=== PATIENT | female | born 1995 | race Caucasian/White ===

== ENCOUNTER 2022-12-12 12:40 | Outpatient (OUT) | payer OTHER, SELFPAY | END 2022-12-12 12:41 | disposition home or self-care (01) | LOC: PST 12:46 | PROVIDERS: PCP Family Medicine; Visit Provider Surgery | DX: Z01.818 Encounter for other preprocedural examination (principal); R22.0 Localized swelling, mass and lump, head ==

== ENCOUNTER 2022-12-21 07:51 | Day surgery (SDC) | payer OTHER, SELFPAY ==
[2022-12-12 13:20] VITALS: BP 127/86; PULSE 73; RESP 20; TEMP 36.6; O2SAT 97; BMI 38.3
[2022-12-21 08:02] VITALS: BP 138/102; PULSE 96; RESP 18; TEMP 36.5; O2SAT 98; BMI 39.4
[2022-12-21 08:19] LABS: HCG Qualitative NEGATIVE (NEGATIVE)
[2022-12-21] MEDS: LACTATED RINGER'S SOLUTION 1,000 ML 75 ML IV (08:20)
[2022-12-21] MEDS: LACTATED RINGER'S SOLUTION 1,000 ML 50 ML IV (08:20)
[2022-12-21] MEDS: LIDOCAINE HCL 1%-EPINEPHRINE 1:100,000 10 ML MDV INJ (09:25)
[2022-12-21] MEDS: BACITRACIN OINTMENT 28.4 GM TUBE 1 APPLIC TOPICAL (09:34)
[2022-12-21 09:36] VITALS: BP 113/90; PULSE 69; RESP 16; O2SAT 97
[2022-12-21 09:51] VITALS: BP 133/97; PULSE 84; RESP 16; O2SAT 98
[2022-12-21 10:06] VITALS: BP 127/84; PULSE 84; RESP 16; O2SAT 96
--- NOTE | 2022-12-21 11:25 | PM.GSPRC ---
Date of procedure: 12/21/22 Indications for Procedure: This patient is a [age] year female who was recently seen in the office for a right sided scalp mass. This had been present for several months and had an increase in size and has been causing local discomfort. She elects for excision for definitive diagnosis and treatment. The risks and benefits options and potential complications of the procedure were discussed in detail with her and she agreed to proceed and consent was signed. Pre-op diagnosis: scalp mass Post-op diagnosis: same as pre-op Procedure: excision scalp mass Anesthesia: MAC and local Surgeon: Bryce Patel Procedure Summary: the patient was brought to the procedure room and placed in the supine position. Under MAC the site on the right upper scalp was prepped and draped in sterile fashion. One percent lidocaine was used to anesthetize the skin overlying and surrounding the mass. An incision was made overlying the mass of approximately 1.5 cm. Mass which appeared to be consistent with a pilar cyst was excised in its entirety. The mass was approximately 8 mm in diameter. The site was hemostatic. The incision was closed with a running suture of 3-0 nylon. Antibiotic ointment was applied. The patient tolerated the procedure well and was transferred to the recovery area in stable condition. Estimated blood loss (mL): 2 Specimens: scalp mass Complications: No
== END 2022-12-21 10:06 | disposition home or self-care (01) ==
PROVIDERS: PCP Family Medicine; Visit Provider Surgery
PROC: (CPT 11422; principal; 2022-12-21 08:50)
DX: L72.11 Pilar cyst (principal)
CPT/HCPCS: 11422; 36415; 84703; 88304; J2704

== ENCOUNTER 2023-03-05 21:17 | Outpatient (REF) | payer OTHER, SELFPAY ==
[2023-03-08 14:09] LABS: Age Gdln ACOG Testing Note (.); IGP, rfx Aptima HPV ASCU Note (.)
== END 2023-03-05 21:18 | disposition home or self-care (01) ==
LOC: LAB 21:17
PROVIDERS: PCP Family Medicine; Visit Provider Obstetrics & Gynecology
DX: Z12.4 Encounter for screening for malignant neoplasm of cervix (principal)
CPT/HCPCS: G0145

== ENCOUNTER 2023-06-19 20:12 | Outpatient (REF) | payer OTHER, SELFPAY ==
--- OUTSIDE RECORDS SUMMARY | 2023-06-19 20:20 | XMS_ITS | CCD ---
Author Name Unknown Address [address] [facility] [address] [place] [id number] Organization [facility] Care Team Providers Care Pricing Strategist Name Role Phone MICHAEL HELMS Primary Care Physician Scooter, Michael Camejo Primary Care Provider SCOOTER, DR MICHAEL Camejo Admitting Unavailable NADERER, DR MICHAEL Camejo Attending Unavailable NADERER, DR MICHAEL Camejo Consulting Unavailable NADERER, DR MICHAEL Camejo Primary Care Unavailable EDWARD, SUMMER Attending Unavailable EDWARD, SUMMER Admitting Unavailable ZORAN ., PEDRO BAINS Consulting Unavailgeorge e SCOOTER, DR MICHAEL Camejo Primary Care Unavailable GLENN PACHECO Consulting Unavailable ORVILLE ., DR ALONSO Attending Unavailable ORVILLE ., DR ALONSO Admitting Unavailable ORVILLE ., DR ALONSO Consulting Unavailable NADKENR, DR MICHAEL Camejo Primary Care Unavailable NADERER, DR MICHAEL Camejo Admitting Unavailable NADERER, DR MICHAEL Camejo Attending Unavailable NADERER, DR MICHAEL Camejo Consulting Unavailable NADERER, DR MICHAEL Camejo Primary Care Unavailable NADERER, DR MICHAEL Camejo Admitting Unavailable IESHA TORRE Primary Care Unavailable ZIBREANNA, DR CARMEN Aguilar Consulting Unavailable NADERER, DR MICHAEL Camejo Attending Unavailable NADERER, DR MICHAEL Camejo Consulting Unavailable ORVILLE, CELESTE Attending Unavailable ORVILLE, CELESTE Attending Unavailable Medications Current Medications Medication Drug Class(es) Dates Sig (Normalized) Sig (Original) Aimovig SureClick (1 source) Start: 10-12-19 19 Aimovig SureClick SubCutaneous, qMonth, Refills(s) 0 Start Date: 10/11/18 Status: Ordered amoxicillin 875 mg / clavulanate 125 mg oral tablet (1 source) Penicillin-class Antibacterial Start: 08-09-19 End: 08-23-19 22 take 1 tablet by mouth every twelve hours Augmentin 875 mg oral tablet = 1 tab(s), Oral, q12hr, X 14 day(s), # 28 tab(s), Refills(s) 0, Pharmacy: [facility]/pharmacy #[id number], 168, cm, 08/08/21 14:35:00 EDT, Height/Length Dosing, 108, kg, 08/08/21 14:35:00 EDT, Weight Dosing Start Date: 08/08/21 Stop Date: 08/22/21 Status: Ordered FLUoxetine 10 mg oral tablet (1 source) Serotonin Reuptake Inhibitor Start: 10-12-19 take 10 mg by mouth once daily fluoxetine 10 mg, Oral, Daily, Refills(s) 0 Start Date: 10/11/18 Status: Ordered hydroCHLOROthiazide 12.5 mg oral tablet (1 source) Thiazide Diuretic Start: 10-12-19 take 12.5 mg by mouth once daily hydrochlorothiazide 12.5 mg, Oral, Daily, Refills(s) 0 Start Date: 10/11/18 Status: Ordered Completed/Discontinued Medications Medication Drug Class(es) Dates Sig (Normalized) Sig (Original) citalopram 20 mg oral tablet (1 source) Serotonin Reuptake Inhibitor Start: 3 take 1 tablet by mouth once daily citalopram (CELEXA) 20 mg tablet Take 20 mg by mouth once daily. 0 05/25/2022 Active Comment on above: Take 20 mg by mouth once daily. medroxyPROGESTERone acetate 10 mg oral tablet (2 sources) Progestin Start: 9 medroxyPROGESTERone (PROVERA) 10 mg tablet Take 10 mg by mouth. 0 10/11/2018 Active Comment on above: Take 10 mg by mouth. metFORMIN hydrochloride 500 mg oral tablet (2 sources) Biguanide Start: 9 metFORMIN (GLUCOPHAGE) 500 mg tablet Take 500 mg by mouth. 0 10/11/2018 Active Comment on above: Take 500 mg by mouth . Problems Active Problems Problem Classification Problem Date Documented Da te Episodic/Chronic Adjustment disorders (2 sources) Adjustment disorder; Translations: [Adjustment disorder with mixed anxiety and depressed mood] Chronic Anxiety disorders (1 source) Anxiety 10-11-2018 Chronic Calculus of urinary tract (1 source) Kidney stone 10-11-2018 Episodic E Codes: Natural/environment (2 sources) Dog bite; Translations: [Bitten by dog, initial encounter] Onset: 08-08-2021 Episodic E Codes: Place of occurrence (1 source) Unspecified place in single-family (private) house as the place of occurrence of the external cause; Translations: [Place of occurrence of accident or poisoning, home (environment)] Episodic E Codes: Struck by; against (1 source) Striking against or struck by other objects, initial encounter; Translations: [STRIKING AGNST/STRUCK OTH OBJ INIT] Onset: 06-18-2022 Episodic Headache; including migraine (2 sources) Migraine; Translations: [Migraine, unspecified, not intractable, without status migrainosus] Chronic Headache; including migraine (3 sources) Headache; including migraine; Translations: [HEADACHE UNSPECIFIED] Onset: 06-14-2022 Intracranial injury (1 source) Concussion without loss of consciousness, initial encounter; Translations: [CONCUSSION WITHOUT LOC INITIAL ENC] Onset: 06-18-2022 Episodic Mood disorders (1 source) Depressive disorder 10-11-2018 Chronic Nutritional deficiencies (1 source) Vitamin D deficiency, unspecified; Translations: [VITAMIN D DEFICIENCY UNSPECIFIED] Onset: 2022 Chronic Nutritional deficiencies (1 source) Calcium deficiency 10-11-2018 Episodic Open wounds of extremities (2 sources) Open bite of right middle finger without damage to nail, initial encounter; Translations: [Open bite of other finger without damage to nail, initial encounter] Onset: 08-08-2021 Episodic Other aftercare (1 source) Long-term current use of drug therapy; Translations: [Other adaptive physical education specialist (current) drug therapy] Episodic Other aftercare (1 source) Other adaptive physical education specialist (current) drug therapy; Translations: [OTH OUTSIDE MEDICAL SALES REPRESENTATIVE CURRENT DRUG THERAPY] Onset: 06-18-2022 Episodic Other endocrine disorders (1 source) Polycystic ovary syndrome; Translations: [Polycystic ovarian syndrome] Chronic Other endocrine disorders (1 source) Polycystic ovaries 10-11-2018 Chronic Other injuries and conditions due to external causes (1 source) Other specified injuries of head, initial encounter; Translations: [OTH SPEC INJURIES HEAD INITIAL ENC] Onset: 06-18-2022 Episodic Unclassified (1 source) OPENED IN ERROR Past or Other Problems Problem Classification Problem Date Documented Date Episodic/Chronic Immunizations and screening for infectious disease (1 source) Encounter for screening for human papillomavirus (HPV); Translations: [ENC SCREENING HUMAN PAPILLOMAVIRUS] Onset: 2022 Episodic Other connective tissue disease (4 sources) Pain in right finger(s); Translations: [PAIN IN RIGHT FINGERS] Onset: 08-23-2021 Episodic Other screening for suspected conditions (not mental disorders or infectious disease) (4 sources) Encounter for screening for malignant neoplasm of cervix; Translations: [ENC SCREENING MALIG NEOPLASM CERV] Onset: 01-31-2022 Episodic Other skin disorders (1 source) Hyperkeratosis Onset: 05-31-2014 10-11-2018 Episodic Other skin disorders (1 source) Trichilemmal cyst Onset: 12-31-2014 10-11-2018 Episodic Results Test Name Value Interpretation Reference Range Facility CBC AUTO DIFFon 08-07-2022 BASO # 0.1 103/ul Normal 0.0-0.1 [facility] Comment on above: Performed By: #### C BC ####[facility] [address] [place], [place] [address]Dr. Rasta Gatica Basophils/100 WBC (Bld) 0.4 % Normal 0.2-2.[address] [facility] Comment on above: Performed By: #### C BC ####[facility] [address] [place] [address]DrHany Gatica EO # 0.2 103/ul Normal 0.0-0.[address] [facility] Comment on above: Performed By: #### C BC ####[facility] [address] [place], [place] [address]Dr. Rasta Gatica Eosinophils/100 WBC (Bld) 1.3 % Normal 0.9-7.[address] [facility] Comment on above: Performed By: #### C BC ####[facility] [address] [place], [place] [address]Dr. Rasta Gatica Erythrocyte distribution width (RBC) [Ratio] 12.7 % Normal 11.0-15.[address] [facility] Comment on above: Performed By: #### C BC ####[facility] [address] [place], [place] [address]Dr. Rasta Gatica Hematocrit (Bld) [Volume fraction] 40.3 % Normal 36.0-48.[address] [facility] Comment on above: Performed By: #### C BC ####[facility] [address] [place] [id number]. Rasta Gatica Hemoglobin (Bld) [Mass/Vol] 13.1 g/dL Normal 12.0-16.0 [facility] Comment on above: Performed By: #### C BC ####[facility] [address] [place] [id number]. Rasta Gatica IG # 0.03 10e3/ul Normal 0.00-0.03 [facility] Comment on above: Performed By: #### C BC ####[facility] [address] [place] [id number]. Rasta Gatica IG % 0.3 % Normal 0.0-0.5 [facility] Comment on above: Performed By: #### C BC ####[facility] [address] [place] [address]Dr. Rasta Gatica LYMPH # 2.9 103/ul Normal 1.2-3.[address] [facility] Comment on above: Performed By: #### C BC ####[facility] [address] [place] [id number]. Rasta En Lymphocytes/100 WBC (Bld) 25.5 % Normal 20.5-60.0 [facility] Comment on above: Performed By: #### C BC ####[facility] [address] [place] [id number]. Rasta En MANUAL DIFF REQ NO Normal [facility] Comment on above: Performed By: #### C BC ####[facility] [address] [place] [id number]. Rasta Gatica MCH (RBC) [Entitic mass] 29.1 pg Normal 26.7-34.[address] [facility] Comment on above: Performed By: #### C BC ####[facility] [address] [place] [id number]. Rasta En MCHC (RBC) [Mass/Vol] 32.5 g/dL Normal 29.9-35.[address] [facility] Comment on above: Performed By: #### C BC ####[facility] [address] [place] [id number]. Rasta Gatica MCV (RBC) [Entitic vol] 89.6 fL Normal 81.0-99.0 [facility] Comment on above: Performed By: #### C BC ####[facility] [address] [place] [id number]. Rasta Gatica MONO # 0.8 103/ul Normal 0.3-0.[address] [facility] Comment on above: Performed By: #### C BC ####[facility] [address] [place] [id number]. Rasta Gatica Monocytes/100 WBC (Bld) 7.2 % Normal 1.7-12.[address] [facility] Comment on above: Performed By: #### C BC ####[facility] [address] [place], [place] [id number]. Rasta Gatica NEUT # 7.3 103/ul Critically high 1.4-6.5 [facility] Comment on above: Performed By: #### C BC ####[facility] [address] [place], [place] [id number]. Rasta Gatica Neutrophils/100 WBC (Bld) 65.3 % Normal 43.0-75.[address] [facility] Comment on above: Performed By: #### C BC ####[facility] [address] [place], [place] [id number]. Rasta Gatica Platelet mean volume (Bld) [Entitic vol] 10.7 fL Normal 9.5-13.[address] [facility] Comment on above: Performed By: #### C BC ####[facility] [address] [place] [id number]. Rasta Gatica PLT 279 103/ul Normal 150-[address] [facility] Comment on above: Performed By: #### C BC ####[facility] [address] [place] [id number]. Rasta Gatica RBC 4.50 106/ul Normal 4.20-5.[address] [facility] Comment on above: Performed By: #### C BC ####[facility] [address] [place], [place] [address]YxDr. Rasta Gatica WBC 11.2 103/ul Critically high 4.0-11.0 [facility] Comment on above: Performed By: #### C BC ####[facility] [address] [place], [place] [address]SgDr. Rasta Gatica GLYCOHEMOGLOBIN A1Con 2022 ADA RECOMMENDATION SEE BELOW Normal [facility] Comment on above: Result Comment: ADA RECOMMENDED LIMIT 4.0 - 6.0 ADA THERAPEUTIC TARGET < 7.0 ACTION SUGGESTED > 7.0 Performed By: #### A 1C #### [facility] [address] [address] [address] Rasta Gatica Glucose [Mass/Vol] 103 mg/dL Normal [facility] Comment on above: Performed By: #### A 1C #### [facility] [address] [address] [address] Rasta Gatica HbA1c (Bld) [Mass fraction] 5.2 % Normal 4.5-6.2 [facility] Comment on above: Performed By: #### A 1C #### [facility] [address] [address] [address] Rasta Gatica LIPID PROFILEon 08-07-2022 CHOL-HDL RATIO NORM SEE BELOW Normal [facility] Comment on above: Result Comment: 3.3 - 4.4 LOW RISK 4.4 - 7.1 AVERAGE RISK 7.1 - 11.0 MODERATE RISK >11.0 HIGH RISK Performed By: #### L IPID, BMP, TSH, LIVER #### [facility] [address] [address] [address] Rasta Gatica Cholesterol [Mass/Vol] 234 mg/dL Critically high <=200 [facility] Comment on above: Performed By: #### L IPID, BMP, TSH, LIVER #### [facility] [address] [address] [address] Rasta Gatica Cholesterol in HDL [Mass/Vol] 67 mg/dL Critically high 40-60 [facility] Comment on above: Performed By: #### L IPID, BMP, TSH, LIVER #### [facility] [address] [address] [address] Rasta Gatica Cholesterol in LDL [Mass/Vol] 151.8 mg/dL Normal [facility] Comment on above: Performed By: #### L IPID, BMP, TSH, LIVER #### [facility] [address] [address] [address] Rasta Gatica Cholesterol.total/C holesterol in HDL [Mass ratio] 3.5 {ratio} Normal [facility] Comment on above: Performed By: #### L IPID, BMP, TSH, LIVER #### [facility] [address] [address] [address] Rasta Gatica HDL NORMAL > or = 60 mg/dl - LO W CARDIOVASCULAR RISK <40 mg/dl - HIGH CARDIOVASCULAR RISK Normal [facility] Comment on above: Performed By: #### L IPID, BMP, TSH, LIVER #### [facility] [address] [address] [address] Rasta Gatica LDL CALC NORMAL SEE BELOW Normal [facility] Comment on above: Result Comment: <100 mg/dl OPTIMAL 100 - 129 mg/dl NEAR OR ABOVE OPTIMAL 130 - 159 mg/dl BORDERLINE HIGH 160 - 189 mg/dl HIGH >190 mg/dl VERY HIGH Performed By: #### L IPID, BMP, TSH, LIVER #### [facility] [address] [address] [address] Rasta Gatica Triglyceride [Mass/Vol] 76 mg/dL Normal <=150 [facility] Comment on above: Performed By: #### L IPID, BMP, TSH, LIVER #### [facility] [address] [address] [address] Rasta Gatica VLDL CALC 15.2 mg/dL Normal [facility] Comment on above: Performed By: #### L IPID, BMP, TSH, LIVER #### [facility] [address] [address] [address] Rasta Gatica LIVER PROFILEon 08-07-2022 Albumin [Mass/Vol] 3.8 g/dL Normal 3.4-5.0 [facility] Comment on above: Performed By: #### L IPID, BMP, TSH, LIVER #### [facility] [address] [place] [address] Dr. Rasta Gatica Albumin/Globulin [Mass ratio] 1.0 {ratio} Normal [facility] Comment on above: Performed By: #### L IPID, BMP, TSH, LIVER #### [facility] [address] [place] [address] Dr. Rasta Gatica ALP [Catalytic activity/Vol] 98 U/L Normal 46-116 [facility] Comment on above: Performed By: #### L IPID, BMP, TSH, LIVER #### [facility] [address] [place] [address] Dr. Rasta Gatica ALT [Catalytic activity/Vol] 24 U/L Normal 14-59 [facility] Comment on above: Performed By: #### L IPID, BMP, TSH, LIVER #### [facility] [address] [place] [address] Dr. Rasta Gatica AST [Catalytic activity/Vol] 19 U/L Normal 15-37 [facility] Comment on above: Performed By: #### L IPID, BMP, TSH, LIVER #### [facility] [address] [place] [address] Dr. Rasta Gatica BILI, CONJUGATED 0.1 mg/dL Normal 0.0-0.2 [facility] Comment on above: Performed By: #### L IPID, BMP, TSH, LIVER #### [facility] [address] [place] [address] Dr. Rasta Gatica Bilirubin [Mass/Vol] 0.4 mg/dL Normal 0.2-1.0 [facility] Comment on above: Performed By: #### L IPID, BMP, TSH, LIVER #### [facility] [address] [place] [address] Dr. Rasta Gatica Globulin (S) [Mass/Vol] 3.8 g/dL Normal [facility] Comment on above: Performed By: #### L IPID, BMP, TSH, LIVER #### [facility] [address] [place] [address] Dr. Rasta Gatica Protein [Mass/Vol] 7.6 g/dL Normal 6.4-8.2 [facility] Comment on above: Performed By: #### L IPID, BMP, TSH, LIVER #### [facility] [address] [place] [address] Dr. Rasta Gatica PROF CHEM 8 (BAS METB)on Anion gap [Moles/Vol] 9.6 mmol/L Normal [facility] Comment on above: Performed By: #### L IPID, BMP, TSH, LIVER #### [facility] [address] [place] [address] Dr. Rasta Gatica Calcium [Mass/Vol] 9.8 mg/dL Normal 8.5-10.1 [facility] Comment on above: Performed By: #### L IPID, BMP, TSH, LIVER #### [facility] [address] [place] [address] Dr. Rasta Gatica Chloride [Moles/Vol] 106 mmol/L Normal 98-[address] [facility] Comment on above: Performed By: #### L IPID, BMP, TSH, LIVER #### [facility] [address] [place] [address] Dr. Rasta Gatica CO2 [Moles/Vol] 27.0 mmol/L Normal 21.0-32.0 [facility] Comment on above: Performed By: #### L IPID, BMP, TSH, LIVER #### [facility] [address] [place] [address] Dr. Rasta Gatica Creatinine [Mass/Vol] 0.66 mg/dL Normal 0.55-1.02 [facility] Comment on above: Performed By: #### L IPID, BMP, TSH, LIVER #### [facility] [address] [place] [address] Dr. Rasta Gatica EGFR-AF TURKISH >60 Normal >=60 [facility] Comment on above: Performed By: #### L IPID, BMP, TSH, LIVER #### [facility] [address] [place] [address] Dr. Rasta Gatica EGFR-NON AF TURKISH >60 Normal >=[address] [facility] Comment on above: Performed By: #### L IPID, BMP, TSH, LIVER #### [facility] [address] [place] [address] Dr. Rasta Gatica Glucose [Mass/Vol] 88 mg/dL Normal 74-106 [facility] Comment on above: Performed By: #### L IPID, BMP, TSH, LIVER #### [facility] [address] [place] [address] Dr. Rasta Gatica Potassium [Moles/Vol] 4.6 mmol/L Normal 3.5-5.1 [facility] Comment on above: Performed By: #### L IPID, BMP, TSH, LIVER #### [facility] [address] [place] [address] Dr. Rasta Gatica Sodium [Moles/Vol] 138 mmol/L Normal 136-145 [facility] Comment on above: Performed By: #### L IPID, BMP, TSH, LIVER #### [facility] [address] [place] [address] Dr. Rasta Gatica Urea nitrogen [Mass/Vol] 10.0 mg/dL Normal 7.0-18.0 [facility] Comment on above: Performed By: #### L IPID, BMP, TSH, LIVER #### [facility] [address] [place] [address] Dr. Rasta Gatica Urea nitrogen/Creatinine [Mass ratio] 15.2 mg/mg Normal [facility] Comment on above: Performed By: #### L IPID, BMP, TSH, LIVER #### [facility] [address] [place] [address] Dr. Rasta Gatica TSHon 08-07-2022 TSH 1.521 uIU/mL Normal 0.358-3.740 [facility] Comment on above: Performed By: #### L IPID, BMP, TSH, LIVER #### [facility] [address] [place] [address] HEAD WO CONon 06-14-2022 CT HEAD WO CON EXAMINATION: CT HEAD WO CON, 06/14/2022 7:33 PM EST HISTORY: UNSPECIFIED INJURY OF HEAD, INITIAL ENCOUNTER COMPARISON: None. TECHNIQUE: CT scan of the head was performed without IV contrast. CT dose reduction technique was used, including Automated Exposure Control. FINDINGS: BRAIN PARENCHYMA/CSF SPACES: Ventricles are normal in size for age. There is no hemorrhage, mass effect or midline shift. There are no other significant findings. PARANASAL SINUSES: Clear. SKULL BASE AND CALVARIUM: Normal. EXTRACRANIAL SOFT TISSUES: Normal. IMPRESSION: No acute intracranial findings. Electronically authenticated by: GLENN PACHECO Date: 2022-06-14 20:18 [facility] PAP ACOG PANEL 2: 22 to 30on 02-08-2022 . . Normal [facility] Comment on above: Performed By: #### [id number] #### [facility] [address] [place] [address] Dr. Rasta Gatica Age Gdln ACOG Testing 21-29 [facility] Comment on above: Performed By: #### [id number] #### [facility] [address] [place] [address] Dr. Rasta Gatica DIAGNOSIS: Comment [facility] Comment on above: Result Comment: NEGA TIVE FOR INTRAEPITHELIAL LESION OR MALIGNANCY. Performed By: #### [id number] #### [facility] [address] [place] [address] Dr. Rasta Gatica Methodology: Comment [facility] Comment on above: Result Comment: This liquid based ThinPrep(R) pap test was screened with the use of an image guided system. Performed By: #### [id number] #### [facility] [address] [place] [address] Dr. Rasta Gatica Note: Comment [facility] Comment on above: Result Comment: The Pap smear is a screening test designed to aid in the detection of premalignant and malignant conditions of the uterine cervix. It is not a diagnostic procedure and should not be used as the sole means of detecting cervical cancer. Both false-positive and false-negative reports do occur. . Performed By: #### [id number] #### [facility] [address] [place] [address] Dr. Rasta Gatica Performed by: Comment Normal [facility] Comment on above: Result Comment: Darline Terry, Bridge Expert (ASCP) Performed By: #### [id number] #### [facility] [address] [place] [address] Dr. Rasta Gatica Reflex Criteria: Comment Normal [facility] Comment on above: Result Comment: The HPV DNA reflex criteria were not met with this specimen result therefore, no HPV testing was performed. . Performed By: #### [id number] #### [facility] [address] [place] [address] Dr. Rasta Gatica Specimen adequacy: Comment Normal [facility] Comment on above: Result Comment: Sati sfactory for evaluation. Endocervical and/or squamous metaplastic cells (endocervical component) are present. Performed By: #### [id number] #### [facility] [address] [place] [address] Dr. Rasta Gatica CBC AUTO DIFFon 02-02-2022 BASO # 0.0 103/ul Normal 0.0-0.1 [facility] Comment on above: Performed By: #### C BC ####[facility] [address] [place] [address]DrHany Gatica Basophils/100 WBC (Bld) 0.4 % Normal 0.2-2.0 [facility] Comment on above: Performed By: #### C BC ####[facility] Ak[address]accjdbf[address] [place] [address]DrHany Gatica EO # 0.1 103/ul Normal 0.0-0.7 [facility] Comment on above: Performed By: #### C BC ####[facility] Pdscjvcmxz49[address] [place] [address]DrHany Gatica Eosinophils/100 WBC (Bld) 1.3 % Normal 0.9-7.[address] [facility] Comment on above: Performed By: #### C BC ####[facility] [address]qixbuksnz22[address] [place] [address]DrHany Gatica Erythrocyte distribution width (RBC) [Ratio] 13.2 % Normal 11.0-15.0 [facility] Comment on above: Performed By: #### C BC ####[facility] Npeq[address]al[address] [place] [address]DrHany Rasta Gatica Hematocrit (Bld) [Volume fraction] 40.8 % Normal 36.0-48.0 [facility] Comment on above: Performed By: #### C BC ####[facility] [address]oufapgil[address] [place] [address]DrHany Rasta En Hemoglobin (Bld) [Mass/Vol] 13.2 g/dL Normal 12.0-16.0 [facility] Comment on above: Performed By: #### C BC ####[facility] Q[address]xby[address] [place], [place] [address]DrHany Karrieroopa Gatica IG # 0.03 10e3/ul Normal 0.00-0.03 [facility] Comment on above: Performed By: #### C BC ####[facility] Wuwou[address] [place], [place] [address]DrHany Gatica IG % 0.3 % Normal 0.0-0.5 [facility] Comment on above: Performed By: #### C BC ####[facility] Hjurejiqgq[address] [place], [place] [address]DrHany Rasta En LYMPH # 2.8 103/ul Normal 1.2-3.8 [facility] Comment on above: Performed By: #### C BC ####[facility] Uktuetcdbc[address] [place], [place] [address]DrHany Gatica Lymphocytes/100 WBC (Bld) 29.1 % Normal 20.5-60.[address] [facility] Comment on above: Performed By: #### C BC ####[facility] [address]thsidnby[address] [place] [address]DrHany Gatica MANUAL DIFF REQ NO Normal [facility] Comment on above: Performed By: #### C BC ####[facility] [address]ebjxhfypi[address] [place] [address]DrHany Gatica MCH (RBC) [Entitic mass] 29.1 pg Normal 26.7-34.0 [facility] Comment on above: Performed By: #### C BC ####[facility] [address]vzndlmbqf[address] [place] [id number]. Rasta Gatica MCHC (RBC) [Mass/Vol] 32.4 g/dL Normal 29.9-35.2 [facility] Comment on above: Performed By: #### C BC ####[facility] Xkdxpwthum8[address] [place] [id number]. Rasta Gatica MCV (RBC) [Entitic vol] 90.1 fL Normal 81.0-99.0 [facility] Comment on above: Performed By: #### C BC ####[facility] Ttqiwnqjph[address] [place], [place] [address]Dr. Rasta Gatica MONO # 0.6 103/ul Normal 0.3-0.8 [facility] Comment on above: Performed By: #### C BC ####[facility] Gvchw[address]ueb[address] [place], [place] [address]Dr. Rasta Gatica Monocytes/100 WBC (Bld) 6.6 % Normal 1.7-12.0 [facility] Comment on above: Performed By: #### C BC ####[facility] Dimmbdzuza[address] [place], [place] [address]Dr. Rasta Gatica NEUT # 6.0 103/ul Normal 1.4-6.5 [facility] Comment on above: Performed By: #### C BC ####[facility] Ixdkuozdjr[address] [place], [place] [address]Dr. Rasta Gatica Neutrophils/100 WBC (Bld) 62.3 % Normal 43.0-75.[address] [facility] Comment on above: Performed By: #### C BC ####[facility] [address]yshtc[address] [place], [place] [id number]. Rasta Gatica Platelet mean volume (Bld) [Entitic vol] 11.4 fL Normal 9.5-13.[address] [facility] Comment on above: Performed By: #### C BC ####[facility] Rzzjrswvqk[address] [place], [place] [address]Dr. Rasta Gatica PLT 264 103/ul Normal 150-[address] [facility] Comment on above: Performed By: #### C BC ####[facility] Lnlosecapa[address] [place] [id number]. Rasta Gatica RBC 4.53 106/ul Normal 4.20-5.40 [facility] Comment on above: Performed By: #### C BC ####[facility] Z[address]yfyloya[address] [place], [place] [address]Go. Rasta Gatica WBC 9.7 103/ul Normal 4.0-11.0 [facility] Comment on above: Performed By: #### C BC ####[facility] [address]ypq[address] [place] [id number] Gatica GLYCOHEMOGLOBIN A1Con 2021 ADA RECOMMENDATION SEE BELOW Normal [facility] Comment on above: Result Comment: ADA RECOMMENDED LIMIT 4.0 - 6.0 ADA THERAPEUTIC TARGET < 7.0 ACTION SUGGESTED > 7.0 Performed By: #### A 1C #### [facility] [address] [place] [address] [address] Rasta Gatica Glucose [Mass/Vol] 120 mg/dL Normal [facility] Comment on above: Performed By: #### A 1C #### [facility] [address] [place] [address] [address] Rasta Gatica HbA1c (Bld) [Mass fraction] 5.8 % Normal 4.5-6.2 [facility] Comment on above: Performed By: #### A 1C #### [facility] [address] [address] [address] Rasta Gatica LIPID PROFILEon 02-02-2022 CHOL-HDL RATIO NORM SEE BELOW Normal [facility] Comment on above: Result Comment: 3.3 - 4.4 LOW RISK 4.4 - 7.1 AVERAGE RISK 7.1 - 11.0 MODERATE RISK >11.0 HIGH RISK Performed By: #### L IVER, TSH, BMP, LIPID ####[facility] Buyasqczcv8[address] [place] [id number]. Rasta Gatica Cholesterol [Mass/Vol] 210 mg/dL Critically high <=200 [facility] Comment on above: Performed By: #### L IVER, TSH, BMP, LIPID ####[facility] Zpubnopabt[address] [place], [place] [address]Se. Rasta Gatica Cholesterol in HDL [Mass/Vol] 61 mg/dL Critically high 40-[address] [facility] Comment on above: Performed By: #### L IVER, TSH, BMP, LIPID ####[facility] Ciikfoyasg[address] [place] [id number]. Rasta Gatica Cholesterol in LDL [Mass/Vol] 114.4 mg/dL Normal [facility] Comment on above: Performed By: #### L IVER, TSH, BMP, LIPID ####[facility] Exradjrekn[address] [place] [phone]. Rasta Gatica Cholesterol.total/C holesterol in HDL [Mass ratio] 3.4 {ratio} Normal [facility] Comment on above: Performed By: #### L IVER, TSH, BMP, LIPID ####[facility] [address] [place] [address]Dr. Rasta Gatica HDL NORMAL > or = 60 mg/dl - LO W CARDIOVASCULAR RISK <40 mg/dl - HIGH CARDIOVASCULAR RISK Normal [facility] Comment on above: Performed By: #### L IVER, TSH, BMP, LIPID ####[facility] [address] [place] [address]Dr. Rasta Gatica LDL CALC NORMAL SEE BELOW Normal [facility] Comment on above: Result Comment: <100 mg/dl OPTIMAL 100 - 129 mg/dl NEAR OR ABOVE OPTIMAL 130 - 159 mg/dl BORDERLINE HIGH 160 - 189 mg/dl HIGH >190 mg/dl VERY HIGH Performed By: #### L IVER, TSH, BMP, LIPID ####[facility] [address]zuv[address] [place] [id number]. Rasta Gatica Triglyceride [Mass/Vol] 173 mg/dL Critically high <=[address] [facility] Comment on above: Performed By: #### L IVER, TSH, BMP, LIPID ####[facility] Udmfxqltsx[address] [place] [address]Dr. Rasta Gatica VLDL CALC 34.6 mg/dL Normal [facility] Comment on above: Performed By: #### L IVER, TSH, BMP, LIPID ####[facility] C[address]udcyfbz[address] [place] [address]Dr. Rasta Gatica LIVER PROFILEon 02-02-2022 Albumin [Mass/Vol] 3.5 g/dL Normal 3.4-5.0 [facility] Comment on above: Performed By: #### L IVER, TSH, BMP, LIPID ####[facility] [address]jyyycnil[address] [place] [address]Dr. Karrieroopa Gatica Albumin/Globulin [Mass ratio] 1.1 {ratio} Normal [facility] Comment on above: Performed By: #### L IVER, TSH, BMP, LIPID ####[facility] X[address]sm[address] [place], [place] [address]Dr. Karrieroopa Gatica ALP [Catalytic activity/Vol] 71 U/L Normal 46-116 [facility] Comment on above: Performed By: #### L IVER, TSH, BMP, LIPID ####[facility] Auz[address] [place], [place] [address]Dr. Rasta Gatica ALT [Catalytic activity/Vol] 15 U/L Normal 14-59 [facility] Comment on above: Performed By: #### L IVER, TSH, BMP, LIPID ####[facility] [address]upfp[address]ylx[address] [place], [place] [address]Dr. Rasta Gatica AST [Catalytic activity/Vol] 8 U/L Critically low 15-37 [facility] Comment on above: Performed By: #### L IVER, TSH, BMP, LIPID ####[facility] Eie[address] [place], [place] [address]Dr. Karrieroopa Gatica BILI, CONJUGATED <0.1 Normal 0.0-0.2 [facility] Comment on above: Performed By: #### L IVER, TSH, BMP, LIPID ####[facility] Dglyawqcvq[address] [place], [place] [address]Dr. Rasta Gatica Bilirubin [Mass/Vol] 0.1 mg/dL Critically low 0.2-1.0 [facility] Comment on above: Performed By: #### L IVER, TSH, BMP, LIPID ####[facility] [address]zbdbsslx[address] [place] [address]Dr. Karrieroopa Gatica Globulin (S) [Mass/Vol] 3.3 g/dL Normal [facility] Comment on above: Performed By: #### L IVER, TSH, BMP, LIPID ####[facility] [address]jnqqlb70[address] [place] [address]Dr. Rasta Gatica Protein [Mass/Vol] 6.8 g/dL Normal 6.4-8.2 [facility] Comment on above: Performed By: #### L IVER, TSH, BMP, LIPID ####[facility] [address] [place] [address]Dr. Rasta Gatica PROF CHEM 8 (BAS METB)on Anion gap [Moles/Vol] 10.6 mmol/L Normal [facility] Comment on above: Performed By: #### L IVER, TSH, BMP, LIPID ####[facility] [address]vlamimv[address] [place] [address]Dr. Rasta Gatica Calcium [Mass/Vol] 9.2 mg/dL Normal 8.5-10.1 [facility] Comment on above: Performed By: #### L IVER, TSH, BMP, LIPID ####[facility] [address]vyeibqend[address] [place] [address]Dr. Rasta Gatica Chloride [Moles/Vol] 106 mmol/L Normal 98-[address] [facility] Comment on above: Performed By: #### L IVER, TSH, BMP, LIPID ####[facility] [address]xgantm[address] [place] [address]Dr. Rasta Gatica CO2 [Moles/Vol] 29.3 mmol/L Normal 21.0-32.0 [facility] Comment on above: Performed By: #### L IVER, TSH, BMP, LIPID ####[facility] [address]zhkqgwcz4[address] [place] [address]Dr. Rasta Gatica Creatinine [Mass/Vol] 0.63 mg/dL Normal 0.55-1.[address] [facility] Comment on above: Performed By: #### L IVER, TSH, BMP, LIPID ####[facility] Lmb[address]yylqj[address] [place] [phone]. Rasta Gatica EGFR-AF TURKISH >60 Normal >=60 [facility] Comment on above: Performed By: #### L IVER, TSH, BMP, LIPID ####[facility] Jonzpqsnve[address] [place] [phone]. Rasta Gatica EGFR-NON AF TURKISH >60 Normal >=[address] [facility] Comment on above: Performed By: #### L IVER, TSH, BMP, LIPID ####[facility] Mxfqrcvpnw75[address] [place] [phone]. Rasta Gatica Glucose [Mass/Vol] 82 mg/dL Normal 74-106 [facility] Comment on above: Performed By: #### L IVER, TSH, BMP, LIPID ####[facility] [address]vbiuecg[address] [place] [address]Dr. Rasta Gatica Potassium [Moles/Vol] 3.9 mmol/L Normal 3.5-5.[address] [facility] Comment on above: Performed By: #### L IVER, TSH, BMP, LIPID ####[facility] [address]uxiyso[address] [place] [address]Dr. Rasta Gatica Sodium [Moles/Vol] 142 mmol/L Normal 136-145 [facility] Comment on above: Performed By: #### L IVER, TSH, BMP, LIPID ####[facility] Isfluvrnnq[address] [place] [id number]. Rasta Gatica Urea nitrogen [Mass/Vol] 11.0 mg/dL Normal 7.0-18.[address] [facility] Comment on above: Performed By: #### L IVER, TSH, BMP, LIPID ####[facility] Npmzihkzgy[address] [place] [phone]. Rasta Gatica Urea nitrogen/Creatinine [Mass ratio] 17.5 mg/mg Normal [facility] Comment on above: Performed By: #### L IVER, TSH, BMP, LIPID ####[facility] [address]fwlgufkw[address] [place] [phone]. Rasta Gatica TSHon 02-02-2022 TSH 1.214 uIU/mL Normal 0.358-3.740 [facility] Comment on above: Performed By: #### L IVER, TSH, BMP, LIPID ####[facility] [address]jdp[address] [place], [place] [address]Dr. Rasta Gatica VITAMIN D 25 OHon 02-02-2022 VIT D 25-OH 28.2 ng/mL Normal [facility] Comment on above: Performed By: #### V ITAD #### [facility] [address] [place], [place] [address] Dr. Rasta Gatica VIT D RANGES SEE BELOW Normal [facility] Comment on above: Result Comment: <20 ng/mL Vit D deficient 20 - <30 ng/mL Vit D insufficient 30 - 100 ng/mL Vit D sufficient >100 ng/mL Potential Toxicity Performed By: #### V ITAD #### [facility] [address] [place], [place] [address] Dr. Rasta Gatica MRI Hand w/o Righton 022 MRI Hand w/o Right CLINICAL HISTORY: Closed nondisplaced fracture of the middle phalanx of the right index finger. Recent dog bite to middle finger. Finger swelling. COMPARISON: Radiograph 09/06/2021 and 08/30/2021 TECHNIQUE: Multiplanar multisequence MRI of the knee and was performed without contrast FINDINGS: Question minimal edema within the distal diaphysis of the third proximal phalanx. No definitive fracture identified on this examination. The remaining visualized bones appear within normal limits. Mild soft tissue edema of the third digit. Flexor and extensor tendons appear intact. IMPRESSION: Question minimal edema within the distal diaphysis of the third proximal phalanx without definitive fracture. Early osteomyelitis cannot be excluded given the provided injury mechanism. Report reported and signed by Nic Duncan on 09/12/2021 1107 Normal [facility] Extrusion Supervisor ED Note-Physicianon 08-12-19 22 ED Note-Physician Basic Information Time Seen: Isi Stoll PA-C 08/08/2021 14:38 Chief Complaint Middle finger lacerations from dog bite about 20 minutes ago. Bleeding controlled with simple dressing History of Present Illness This patient presents emergency department chief complaint of a dog bite to her right middle finger. The patient was at her parents house. When her siblings had their dogs there. The 2 dogs started fighting. She tried to separate them and when the dogs bit her. As far she knows the dogs are up-to-date on their immunizations. The patient is up-to-date on her Tdap. The patient has no known drug allergies. She does not smoke, drink alcohol, or use any street drugs. She is on metformin for PCOS. She also takes medication for migraine headaches. Review of Systems Constitutional: Denies weight loss, fevers, chills, sweats, malaise Eyes: Denies visual changes, eye pain, double vision, scotomas, floaters ENT: Denies runny nose, epistaxis, sinus pain, ear pain, ringing in ears, tooth ache, sore throat, pain with swallowing Cardiovascular: Denies chest pain, shortness of breath, orthopnea, edema, palpitations, loss of consciousness, claudication Respiratory: Denies cough, sputum production, wheezing, hemoptysis, shortness of breath, dyspnea on exertion Gastrointestinal: Denies abdominal pain, unintentional weight loss, difficulty swallowing, indigestion, bloating, cramping, loss of appetite, nausea, vomiting, diarrhea, constipation, hematochezia, melena Genitourinary: Denies any incontinence of urine, dysuria, hematuria, nocturia, polyuria, hesitancy, frequency, urgency, burning Musculoskeletal: Denies joint pain, morning stiffness, joint swelling, decreased range of motion, crepitus Integumentary: Denies any pruritus, rashes, lesions, petechiae. + wound R middle finger Neurologic: Denies any changes in sight, smell, hearing, taste, seizures, headache, paresthesia, numbness, weakness, balance disturbance Psychiatric denies any depression, change in sleep patterns, anxiety, difficulty concentrating, paranoia, anhedonia, lack of energy, niall Hematologic/lymphatic : Denies any purpura, petechiae, excessive bleeding, bruising Physical Exam Vitals & Measurements T: 36.8 ?C(Oral) HR: 94(Peripheral) RR: 18 BP: 137/97 SpO2: 98% HT: 168.0 cm HT: 168 cm WT: 108.0 kg WT: 108 kg BMI: 38.27 Vital Signs reviewed and noted. General: Alert, no acute distress, patient resting comfortably Skin: warm, no pallor noted . Patient has puncture wounds and abrasions to the right middle finger, dorsal aspect. There is a 2 cm abrasion starts on the mid dorsal aspect and extends laterally. At the midpoint of this, it does extend into the subcutaneous tissue for approximately 2 mm. She has full active range of motion. Distal neurovascular is intact. Head: Normocephalic, atraumatic Eye: Normal conjunctiva Cardiac: regular rate and rhythm Respiratory: Clear to auscultation throughout all nixon Musculoskeletal: No deformity, full ROM. Neurological: alert and oriented, normal sensory and motor observed. Psychiatric: Cooperative Medical Decision Making Dog bite right third digit of the hand Assessment/Plan 1. Dog bite of middle finger (S61.258A: Open bite of other finger without damage to nail, initial encounter) Bitten by dog, initial encounter (W54.0XXA: Bitten by dog, initial encounter) Orders: amoxicillin-clavulana te, = 1 tab(s), Oral, q12hr, X 14 day(s), # 28 tab(s), Refills(s) 0, Pharmacy: [facility]/pharmacy #[id number], 168, cm, 08/08/21 14:35:00 EDT, Height/Length Dosing, 108, kg, 08/08/21 14:35:00 EDT, Weight Dosing amoxicillin-clavulana te, 1 tab(s), Tab, Oral, Once, Stop date 08/08/21 14:46:00 EDT, STAT, Start date 08/08/21 14:46:00 EDT bacitracin topical, 2 corey, Ointment, Topical, Once, Stop date 08/08/21 15:09:00 EDT, STAT, Start date 08/08/21 15:09:00 EDT ibuprofen, 600 mg = 1 tab(s), Tab, Oral, Once, Stop date 08/08/21 14:46:00 EDT, STAT, Start date 08/08/21 14:46:00 EDT, 08/08/21 14:46:00 EDT Patient was interviewed and examined. The right hand was soaked in Hibiclens with saline. Patient was given Augmentin 875 mg p.o. Patient was also given ibuprofen 600 mg p.o. The wound was cleansed and inspected. There is no evidence of tendon injury. There is no evidence of a foreign body. Bacitracin, non-Adaptic dressing and bandage were applied. Distal neurovascular remained intact after the wound was wrapped. I discussed the discharge diagnosis, plan of care, reasons for returning including increased redness, increased pain, red streaking up the arm, purulent drainage, fevers, chills, sweats. I stressed the need for very close follow-up with the primary care physician as well as complete compliance with the antibiotic therapy as prescribed and to be taken until she has completed the entire course of therapy. Patient will be discharged home in stable condition. She is to return to the emergency department for any further problems or concerns. Medicat (more content not included)... [facility] Comment on above: Result Comment: Elec tronically Signed By: Isi Stoll PA-C\.br\Date and Time Signed: 08/08/21 18:06 EDT\.br\Electronically Co-Signed By: Sourav Stinson DO\.br\Date and Time Co-Signed: 08/11/21 07:27 EDT Animal Bite Investigationon 08-08-2021 Animal Bite Investigation [id number]# 1.00CD:127 [facility] Coding Summary.on 08-08-2021 Coding Summary. CD:[id number] G h0bWw+PGhlYWQ+EZ7QHQJ jR56tfLNhnT8SC2bBIX7T XPYSBGCRYX8MHR3nwNT3V IrxP5DstaFx GhinrZRlFS60QTt1FBE0j ZxhJDfalO2ygVMqK4d1Hk LaIM32hW06RGheLKPgDpM 3LjZpbjsgbWFy D4wgPjGmsBNaJfk+PHRhY mxlIHdpZHRoPScxMDAlJy HkwOcbGR4rUo3uDSXnUWW vbGxhcHNlOiBj i6saTODiLOypUD1tmQocT 1FjmYV7WSQid9g1Us27jU I+OYPlLXS9nBeyDEopc31 4UmFxb3btTNH6 cYZhRIlrGYS4B15ge8W7O AZhQQOaAPT5fTJ4uI3naI wrbhkcY3LsfOOgBaG0NHQ 2yRWteD9ekNyn fladoY3aTvb+E16RVC2IL BWLMT7GOvn1S3ReUnprbO I+LT56XXVrMT02wSGhwXJ ks9nklIu8TrHr FWOcKRR2iDsoBNjjb1IfZ CSrX33exYOfg3A4PROugT dicGTwSsRjwCV3iG4fQLd fsgakl6njvlip Ilawm5ewbp23xW93T13jM TrxYRUuUAL9ENSkGFYrbI bret2vvV6uNq5+FUmue4g dg9opqSa9XmYz XBSpvoYheGvlZWJ4o9OxE c90V0XsnPsff1FkUnq9ua 66sGRhn5Z6yRG0RVkoQPF leC4lTHumWmK0 WGAwUmSdmS91xVBhUZnqQ g4lvAvvjCjjEJ6dPYGwwy psMRPwpF1wSNQdaQPwiIj xJR5aOOKxmxgt k900EyQcSUF3LSLzkKOuM 3ZvcZ9iAwHrEFZqEVQvH1 OvsLPdDEqvK127VRqqHqD 9LASyhnKlK4Kz QCZgzZlrHaP2y7R0Jo0Dc 8PgwzvqZMP2ZIcuPGE2Sm BhCxZeKqP9C3PdHiw0GGQ wiLylRN4mA9Uw TMVbgndkxfnnuRT3PSExF XGefI37wFFlYYzpPk2mb7 I8h228VXOtPEUzjM76Qi6 udDogMTBwdCBU aT5faudlx1tyhknqHoJfG NNoSPu0BBr9AXNndSucGy FhGSR6YyZ5KFY6sHQfmV0 ktOvsrhyvqO7t Oyc+Z32jbX4bJGU2QUP1p iaiKWXugjRvWE37MQ72P0 RyPjwvdGFibGU+PGRpdiB iuJleYU6gBzEk i1mmo5IwLOspT4XyXUUnC EraXcp0VHOpBKX2bTG8mG 6oEQEdVYsih1R9uWC2R3D emiNtkp3va7yb IIMcFAsaI05spEPxo3P8U WKgjRT4NPWbvMiuNeMotZ 93Oyc+URCehUvnw8CdSzs qg8tzt1rgqPf4 HmHgUPFqtaCoiCwkABH7v 5BpGg31B48tZSczDWPlYA NdARRnJKOdtJghpx2zqE6 wIi8+PGNvbCB3 oIB0mR1iUDEjJtH9VRcyY 906DzNzwKGfLkaie7gvo6 vwwZc4NkXmXZPaejKmiEm rSMH8u5PkXo43 R29dAZghLMImKGTxPAUyF DEgqPeiox7haV1vSn2+PC 8of1leey26hR21rPI+PHR jDDR9tFprUTlv SHFzmK0iPDvpLlR2ELKzZ iVpdP69nAOeKZfxJr2meS ribQqjGP3nNTRnxgdyo43 9GgTvt6vnGFMz eMMmNZngYML9S33nj5U2H QRpOZTjJNU1hDU2vE5wsT lnbjogbGVmdDsgdmVydGl wHMvkGXuiR958 IHRvcDsnPlBhdGllbnQgT oDcCWd0A4FbDsi4GTRalV ycXR3ocWLuAAxjMd6gkBw lzEahKN5bPHFy ztfuk768EbGjp5xtAQZyh BJoAXqvUUZ4F88vk5J5GZ KzHMMkPZQ6fSJ6sJ3fmQc nbjogbGVmdDsg jvQbhSzwGLplWPimH667W HRvcDsnPkJpcnRoIERhdG Y6BG13RX87oDGhu3W4yGA 5R1KlMUQmtdrd wuwcmES2NBXkUOHdaU60O n3xvPtlRi6xRRQrQCQ5BO MhvZUjH2YmtU2vDmIxDSC gGGWeC8AehSLr PUqkQ912XMrgWiO7GWVpw xZwJ2RvDJGbmCswTjF9q4 E2Fl6CP1T4HQ37QK77sAN oq7J3jMD3K8At WVFcqwlyssfqwFS3ILLpZ BRcyE04Bp1nbTshFw0nED UaNFZ9EOZpaYZoT3CwoZ9 yOiAjMDAwMDAw C4GzdFNzVHzqI092POlbJ zY3QINvyxDwO7WaOULxlG fzJzX1g7B3Yh7REMm5OX6 2TY69sSNkq7R9 aAJ5D5SlUYGyhwokpvbgo KN2YOEuVVSkbL80Od6ldI tuLn3bHCFlLIG2IXKduND dR5ItmC4fXyNb YUBcCQDhZ6NpjVJpBYfuM 113XTswPoZ2SYUbmaBaH3 GdWZWybLapMlB9x9S2Jp3 QMBErEW43RDV2 tUU8PR24GT50Y8IzSteuv GFibGU+PHRhYmxlIHdpZH RoPScxMDAlJyBzdHlsZT0 aYy9sYYEvUNYq kQdexJVxUnFab6pgFCFwW AeaYU6kkEuxZ7PxaVZ4WP Sqp2i4Sr38F94iT4TmbDM +PLUcrFX1hNR6 iK7zOtPqTeP1GOgiP837P cYfoEJnYqlpy6ohp9glqU k8IqP3YVLnwcUpiRrkCEA 3n5OxEr94W54b IHdpZHRoPSIxNSUiIHZhb Omtdh9alV8wFe1+PGNvbC N3fLK9dJ9oLiHmUxO3HUs dQ038DeRukFNw Vodek2fep5sbhDg7DtOpT UXzzdUbfIgeZYI8h2YcGx 33T7DaeHkcd4UuSxk0oy5 2gSAea7O4hQT4 H0LuXMIwkxpdxESxqQloK Z2xBANfqnasJIFulV6xHS EpO5s2NaBpUcL8EBevF2C rbpC0GHBjiJWe ELxnHPZ3X04cl8D7NHQxW MBiCKS2fIP3rG4crLnenx ogbGVmdDsgdmVydGljYWw jJGxiK839XUXz uSrrTBRxqV0sWJXycWQdo AnyFY6kSJPldbaeCtDWLN YGUJIJRFbWLBUDOM65TH7 0oUHnp3I2oVO8 F7ZxEEIcjwefplgavQW1Z UYvJNKhpT43jEYoNBpzFh 1kw7G9a823SHYqRIHxeV6 7Oy3juSttILJr pYCKaZ3zhobfg0opqbloD eFqLWAhJPr3DBx8UYPifH qfDyGgCOW6WeD0YRB6oOR pxJ4lyWtuslgp uS7jUtw+QYVdAnqgTGx3G jwvdGQ+FNLoFKS5zFqiCD uqNPMxbG1bXHQzC8z8SoF zBsL6GXpsI6Pr MRMyqyckUy53pJ0xGjQkN nH2SPzuY9HjugT1JBLwhT ZaETwbWKP7C66xq1J8HYV aHJNcXEO9eKF1 gU2vqPobqccawTMgvCimd yKteFcjQXjjZWwaE960BC BjyOuyLbS5NJflFSXwNL1 8DV30sBNyl3H1 cHN9Q2SoUBXppgwimjlku XT4CGTbZJZiqP02kJLsIJ wrAv7rw4M6f479GTXwVYL scH21Zd0opGqo SNTqnODHfW1wtkpfb9czl zghIlOyIHGkXNf2IVb9IM OhlXbsDiXwUFI0MpX0RWX 1vRHsiM9faZmg kdnkrY1xAso+RmVtYWxlP G26AO52bLJlr3F5jIC3R5 UhZOUdstckdsngmSH1GFM cEPOwrY18gUNt GRzrYu6oj9K7q734YHWkR MJieV37Nu1epAdhCLNftJ GLgU9iujirv2uikgjdHjW fQOFbNSq0EAy8 ZACknNvdRvQtMYR5QbC8E ON1rTRymG3rbVgtgjsviJ 9wOyc+CW8nqwydjnO8AU4 1DN07M2IhTqzk dGFibGU+PHRhYmxlIHdpZ HRoPScxMDAlJyBzdHlsZT 5kSg2dHSZlQGBrzPqyvTF tGbFzw8toIAGk KMszDN4gqZouF1EjgLL8B FFuy5b0Bi35G91rS0SttE A+NTHbxVL2xJV4nH3bJiS gBrK6ONktM905 DhRonFQsOanww1fad2nsq Jo4SpVrTZEyfnRavVznXA E4n6UxTh51E06vVAzzVLJ oPSIyMCUiIHZh kJtrvx2lxT3yJe7+PGNvb HH8iNN7qZ4nRuSxFdB6OQ vpP279ZnSqrJLvAivbO43 uE6BlsWL+PHRy Jaq1JYKjlMlfJA6hlKYaD UynKp6kCQP3JiXrWkLfFO tmA1NfIBAlwmnzxcgjoZD 3FJPhSMMerM04 Cg4lzPbhUf4nBPVvPBL5V CNxaNOzG0NyrK6vMrRyWE QrNXHgS3IhjYNaRFliT56 5EMdaLwB5KFNx hqHwV6AjXRPwzUdcGqK1u 5V4Zl0YlSdlcTAnNO5zNd RuNVx5V1TkZnx6TFFejDl pNA7rtMLvDAqt Wi6plAsldOleOI8eYYUle bfyl440ItVjr0pkPUDiaT VqAYnfWBQ8G74cj2G9TGA fEFLvHUQ6nXU3 jG4emAbeadfkvJHvsPzeh dSwwKweDAttQEvfV821CQ YmxApmXhCXJjy8D5RbWzf 8KOBhxIboWZ0b jVDpLBosCh0miRthbLzsP Z7uTQCsbkgld066MbFvg4 yuIZJwhFAiONwlWDL4A64 qw6I7XJUkBYOz PSE8aTP9qC3tuZbsxscoz GVmdDsgdmVydGljYWwtYW idN637QBKzzImlXs8IMyg 8P8SrMlg5JKUj rPddRJ0cjIEoFKukLl9za XwdrKlxKA2qYXIhzjhra6 34NfKcp7ggXBXezVJyVSe dCQT2I76cz3I8 CPZrTYBcQGN5wLM0pG2dx GlnbjogbGVmdDsgdmVydG ydTVsuHRkhV174XNDhvRt nPlBheWVyOjwv dGQ+ES96mo09H1CjHvucE ti0UUKeRBL0cWY2fK6lLS NlCEmqh9O8pHX2A0YdyfT pjn8vz1fxGTRo ZTog (more content not included)... [facility] Consent for Treatmenton Consent for Treatment [id number] .[id number] [facility] Discharge Instructionson Discharge Instructions [id number]# 1.00CD:127 [facility] ED Clinical Summaryon 2021 ED Clinical Summary [address] [address] ED Clinical Summary Person Information Name: BROOKLYNN GTZ [facility] Age: 26 Years : 1995 Sex: Female Language: [place] PCP: MICHAEL HELMS MD Marital Status: Phone: [phone] Visit Id: Visit Reason: Dog bite: hand; Finger laceration; dog bite Speciality: Acuity: 4 Enc Type: Emergency Med Service: Emergency Arrival: 08/08/2021 14:29:26 Discharge: 08/08/2021 15:44:06 LOS: 000 01:15 Checkin: 08/08/2021 14:29:26 Checkout: 08/08/2021 15:44:06 Dispo Type: Home (Routine DC) EVENTS: Event Name Event Status Request Date/Time Start Date/Time Complete Date/Time Arrive Complete 08/08/2021 14:29:26 08/08/2021 14:29:26 08/08/2021 14:29:26 Document Home Meds Request 08/08/2021 14:29:26 Triage Complete 08/08/2021 14:29:26 08/08/2021 14:35:18 08/08/2021 14:35:18 Patient Care Request 08/08/2021 14:34:44 Bed Assign Complete 08/08/2021 14:35:54 08/08/2021 14:35:54 08/08/2021 14:35:54 Dr Exam Complete 08/08/2021 14:35:54 08/08/2021 14:38:09 08/08/2021 14:38:09 RN Exam Complete 08/08/2021 14:35:54 08/08/2021 14:45:35 08/08/2021 14:45:35 Registration Complete 08/08/2021 14:38:09 08/08/2021 14:50:04 08/08/2021 14:50:04 Dr Exam Complete 08/08/2021 14:39:05 08/08/2021 14:39:05 08/08/2021 14:39:05 Meds Admin Complete 08/08/2021 14:46:43 08/08/2021 15:30:05 Reg Complete Request 08/08/2021 14:50:04 Reg Bed Request Complete 08/08/2021 14:50:04 08/08/2021 14:50:04 08/08/2021 14:50:04 Meds Admin Complete 08/08/2021 15:09:39 08/08/2021 15:30:06 Discharge Complete 08/08/2021 15:38:37 08/08/2021 15:44:14 08/08/2021 15:44:14 Transfer Complete 08/08/2021 15:44:14 08/08/2021 15:44:14 08/08/2021 15:44:14 ADDRESS: [address] [facility] [id number] PHYS DOC NOTES: MEDICAL INFORMATION: Prescriptions Given: New Medications [id number], [address], [place] [id number], [phone] amoxicillin-clavulana te (Augmentin 875 mg oral tablet) 1 Tablets By Mouth every 12 hours for 14 Days. Refills: 0. Medications to Continue with No Changes Other Medications erenumab (Aimovig SureClick) Subcutaneous once a month. fluoxetine 10 Milligram By Mouth every day. hydrochlorothiazide 12.5 Milligram By Mouth every day. medroxyPROGESTERone (medroxyPROGESTERone 10 mg Tab) 10 Milligram By Mouth every day. 10 days out of each month to regulate cycle. metformin 500 Milligram By Mouth 2 times a day. PATIENT EDUCATION INFORMATION: Instructions: Animal Bite, Adult, Pkeu-em-Mvnl Follow up: With: Address: When: MICHAEL HELMS [address] [place], [place] [id number] Business (1) In 3 days 08/11/2021 DIAGNOSIS: 1:Dog bite of middle finger; Bitten by dog, initial encounter [facility] ED Patient Education Noteon 08-08-2021 ED Patient Education Note Infectious Disease Animal Bite, Adult Animal bite wounds can be mild or serious. It is important to get medical treatment to prevent infection. Ask your doctor if you need treatment to prevent an infection that can spread from animals to humans (rabies). Follow these instructions at home: Wound care ? Follow instructions from your doctor about how to take care of your wound. Make sure you: ? Wash your hands with soap and water before you change your bandage (dressing). If you cannot use soap and water, use hand aviation technician. ? Change your bandage as told by your doctor. ? Leave stitches (sutures), skin glue, or skin tape (adhesive) strips in place. They may need to stay in place for 2 weeks or longer. If tape strips get loose and curl up, you may trim the loose edges. Do not remove tape strips completely unless your doctor says it is okay. ? Check your wound every day for signs of infection. Check for: ? More redness, swelling, or pain. ? More fluid or blood. ? Warmth. ? Pus or a bad smell. Medicines ? Take or apply pepx-iwo-wxxtaxr and prescription medicines only as told by your doctor. ? If you were prescribed an antibiotic, take or apply it as told by your doctor. Do not stop using the antibiotic even if your wound gets better. General instructions ? Keep the injured area raised (elevated) above the level of your heart while you are sitting or lying down. ? If directed, put ice on the injured area. ? Put ice in a plastic bag. ? Place a towel between your skin and the bag. ? Leave the ice on for 20 minutes, 2?3 times per day. ? Keep all follow-up visits as told by your doctor. This is important. Contact a doctor if: ? You have more redness, swelling, or pain around your wound. ? Your wound feels warm to the touch. ? You have a fever or chills. ? You have a general feeling of sickness (malaise). ? You feel sick to your stomach (nauseous). ? You throw up (vomit). ? You have pain that does not get better. Get help right away if: ? You have a red streak going away from your wound. ? You have any of these coming from your wound: ? Non-clear fluid. ? More blood. ? Pus or a bad smell. ? You have trouble moving your injured area. ? You lose feeling (have numbness) or feel tingling anywhere on your body. Summary ? It is important to get the right medical treatment for animal bites. Treatment can help you to not get an infection. Ask your doctor if you need treatment to prevent an infection that can spread from animals to humans (rabies). ? Check your wound every day for signs of infection, such as more redness or swelling instead of less. ? If you have a red streak going away from your wound, get medical help right away. This information is not intended to replace advice given to you by your health care provider. Make sure you discuss any questions you have with your health care provider. Document Released: 03/25/2006 Document Revised: 03/20/2018 Document Reviewed: 10/03/2017 Elsevier Patient Education ? 2019 [employer]. [facility] ED Patient Summaryon 022 ED Patient Summary [place] [id number] Patient Discharge Instructions Person Information Name: BROOKLYNN GTZ Age: 26 Years Arrival Date: 08/08/2021 14:29:26 Discharge Diagnosis: 1:Dog bite of middle finger; Bitten by dog, initial encounter Primary Care Physician: MICHAEL HELMS MD Provider Information Primary Provider: Sourav Stinson DO Advanced Financial Economist:None The exam and treatment you received in the Emergency Department were for an urgent problem and are not intended as complete care. It is important that you follow up with a doctor, nurse practitioner, or physician?s community program assistant for ongoing care. If your symptoms become worse or you do not improve as expected and you are unable to reach your usual health care provider, you should return to the Emergency Department. We are available 24 hours a day. BROOKLYNN GTZ has been given the following list of patient education materials, prescriptions and follow-up instructions: Follow-up Instructions: With: Address: When: MICHAEL HELMS [address], [place] [phone] Business (1) In 3 days 08/11/2021 In the event that this physician does not participate in your insurance network, please consult with your insurance company to find a nearby participating provider. Patient Education Materials: Animal Bite, Adult, Zsfl-nc-Bgox A MESSAGE TO ALL PATIENTS REGARDING OPIOIDS PRESCRIPTION OPIOIDS: WHAT YOU NEED TO KNOW Prescription opioids can be used to help relieve hbbgpnan-ae-alsvsg pain and are often prescribed following a surgery or injury, or for certain health conditions. These medications can be an important part of the treatment but also come with serious risks. It is important to work with your healthcare provider to make sure you are getting the safest, most effective care. WHAT ARE THE RISKS AND SIDE EFFECTS OF OPIOID USE? Prescription opioids carry serious risks of addiction and overdose, especially with prolonged use. An opioid overdose, often marked by slowed breathing, can cause sudden . The use of prescription opioids can have a number of side effects as well, even when taken as directed: ? Tolerance?meaning you might need to take more of the medication for the same pain relief ? Physical dependence?meaning you have symptoms of withdrawal when a medication is stopped ? Increased sensitivity to pain ? Constipation ? Nausea, vomiting, and dry mouth ? Sleepiness and dizziness ? Confusion ? Depression ? Low levels of testosterone that can result in lower sex drive, energy, and strength ? Itching and sweating RISKS ARE GREATER WITH: ? History of drug misuse, substance use disorder, or overdose ? Mental health conditions (such as depression or anxiety) ? Sleep apnea ? Older age (65 years and older) ? Avoid alcohol while taking prescription opioids. Also, unless specifically advised by your health care provider, medications to avoid include: ? Benzodiazepines (such as Xanax or Valium) ? Muscle relaxants (such as Soma or Flexeril) ? Hypnotics (such as Ambien or Lunesta) ? Other prescription opioids KNOW YOUR OPTIONS Talk to your health care provider about ways to manage your pain that don?t involve prescription opioids. Some of these options may actually work better and have fewer risks and side effects. Options may include: ? Pain relievers such as acetaminophen, ibuprofen, and naproxen ? Some medication that are also used for depression or seizures ? Physical therapy and exercise ? Cognitive behavioral therapy, a psychological, goal-directed approach, in which patients learn how to modify physical, behavioral, and emotional triggers of pain and stress. IF YOU ARE PRESCRIBED OPIOIDS FOR PAIN: ? Never take opioids in greater amounts or more often than prescribed. ? Follow up with your primary health care provider. o Work together to create a plan on how to manage your pain. o Talk about ways to help manage your pain that don?t involve prescription opioids. o Talk about any and all concerns and side effects. ? Help prevent misuse and abuse o Never sell or share prescription opioids. o Never use another person?s prescription opioids. ? Store prescription opioids in a secure place and out of reach of others (this may include visitors, children, friends, and family). ? Safely dispose of unused prescription opioids: Find your community drug take-back program or your pharmacy mail-back program, or flush them down the toilet, following guidance from the Food and Drug Administration (www.fda.gov/Drugs/Re sourcesForYou). ? Visit www.cdc.gov/drugoverd ose to learn about the risks of opioids abuse and overdose. ? If you believe you may be struggling with addiction, tell your health healthcare administrative assistant and ask for guidance or call [facility]?S National Helpline at 0-066-440-ZB (more content not included)... [facility] Coding Summary.on 02-24-2021 Coding Summary. [id number] G h0bWw+PGhlYWQ+DC7OPTU fY94caAMqvJ3ZJ4iGCA4J DFBCLJQURQ6WCV9tfVC1Y SwlQ1BbrmHz DyfjqQZuLM10WMx6LZH8p ZgeSMyigO2ifVDnG8v5Qj BoKF13zA59AHoqVEHkLpR 3LjZpbjsgbWFy Z1gyWvQajPSkZsk+PHRhY mxlIHdpZHRoPScxMDAlJy BsaOsjVX5bMa7qTOMgKIY vbGxhcHNlOiBj o8nmLULrMMjeAW9ekHxnA 5MozDT1PTVbk6l2Qm45uJ I+IQCaWXG5wMleNSssu92 6GpMko9xuOQC8 xMPnONmdBFW5Z86lz6M2Q IDpMFJwODQ2cFT2jV1leY fgssjtJ2BcyOBgAuO2FVQ 3gHLwaR7fsWdm exfwaL5hFea+I94ZOD3LV OVEHD0LHuq1E0AdEpkvkL I+DH71VKTeZI26hLLsoLX qo3qurYs3WpMi GXZjDBM8fSxxNMrdl5DfM JDrE97rkKQog0P6MNPfzL cybHTdHnWyzOO4fI9lKCa mdlbgr3nguhqi Slojx6inaw31hM41E25hY ZblEDTmKWL3GGTkNKVktE plsy3qpC1aMl5+VAtek4o er3ikmJx9GkVc UHMxfoOctXjvZBX4r6DpX w68L2MffDsbd2UwQeg2df 52cKTvl2R5zWO4VFbrYVR fkL7vPBgiYnT4 OFCxEkDouO51bSWgFGfvF h8pbCspgPifRT4pYKNscp ybAYHwvP8xAPVciRLgaYm sTK4rNNQobixs e949OcVdTOI9NLGuiSVyI 5AymO2qWvFxMHMtYQMnS5 CjkFLfXVrnD987CCjhQqX 0NKJistPnA1Bq PYEekWcuRpZ1b6T3Eb6Cy 0LwexudHFN2HUuiQEWnKy R3GcAfZwX4Z9YqJuc5OND nsVfbHB4zD5Jk OCGcewrcdjeeyKY7VVXaT BYbvK51pHEuNHzuRk6ba4 F8h005BSKzMBPztV05Cq7 udDogMTBwdCBU rE0nedzww5oylqzhOlEpL XJdIDc5DJa4KTRscOdmKj WkAKN1IwM6GIU7dQLicO5 lgCfhsqeakL7i Oyc+C12qoG0sMMT2CZT2p gifOIBsysNcHD03DK59F9 RyPjwvdGFibGU+PGRpdiB iyCnwNF8eSmUx u5ihs4KqENgyX2JnVGEnI VopEwo3MFVfEXP6eIM3bH 9mLTEpBPnft6I0rWG1W3V ennJxvy5fr1kp HYBcCBuvX33upIKva3O1M PPuyMG9MUFcjHftXvYgqB 93Oyc+UVSvpQuqd0VdVfs gw1ayv6fbaTb9 LfNqYESqxyVfsTguBJK6v 3CjCg86W14hIDqvDKGmPC MuCOBjQBTgnAwftd9xiT0 wIi8+PGNvbCB3 aGE7aN0lGTUcCuM4JIjzY 848IhQztBHaFiakq6vtz0 twfHz7XjDfXUZricZikMc lZMI9f6RwOl55 G20rJJdcKYHvXMUrZFAbF WVlbBijbe0jlH1sKc6+PC 9mr1xkkg84iM26wLR+PHR fCMZ9vPvdNBlk BINwwR1qNIuzMgR7MZClQ iZhxX16zTEyTDgbKa0aaR mqgLbyOO6aEJDobfspl33 5VuPms9dpMKIu aBInYHwfRKV9W82uo7E1U ZPhAMGgLTS2uYD3vX4lrD lnbjogbGVmdDsgdmVydGl vWEmeECxxG125 IHRvcDsnPlBhdGllbnQgT vVeQYb4A1YoJtx4UKVnaS yzWG8opRRjTJpxQm0oyMw ozZpjAW4eEYEy msawg203MeUzm2ghSZCce UGnMGniWOG0I19bh0I7YX MwALIhXSQ0zPU0xR0ioIy nbjogbGVmdDsg fgXefLzvZUmtOHtjY979U HRvcDsnPkJpcnRoIERhdG K0AP02JW97lCCvo5S4dXP 5B0FkUJBrfzyw kohktGW1CLMwOIEfvY23J s4muVqfPj8mGXHkYLE6ER PewCBwA9QnrB4qGkWqWTS bWQPrS9FnuVVw VYhhW665RWevWyU1AMDte jViW7OwRPDfiMweCiX6v9 F3Ff6OX8R1FY16NW33nLV vb9A8nMW9B0Gt QXQddgrbnsxfsXW5XZNwO OYuvC12Gy2ytIjoGs1fFV CpRKR0VLKtrRXwU9UdxQ2 yOiAjMDAwMDAw G0TabXXtFFkhX094PGztZ qF9JJDnhrDsX6RrOBImnT yaWtQ6x1W6Ji7YVMg4RM5 7EN38eUDik4S1 vZX5M1RnIOHwmhflwffdc HK9RWUeUJCvtL61Ke7rhE ihRq7uGPUgGWQ2WGSxyLR pG3KkkK2dWdQt YWBvDIFbV5EstZRlEIlwQ 782BLjeOpR4WFObblMpC4 HtAYNtfMtoCyY8b3A1Mj1 QEWZfMV38WYB4 gJO2ZX74YH75T9ImYweln GFibGU+PHRhYmxlIHdpZH RoPScxMDAlJyBzdHlsZT0 aLm1vICGiOONa dHcgsTJoWcFly5wpDGWeP JhmRG1wrGkkD6NybHA8FH Kwq9i7Mu33H56uF6YtgJZ +XFWdlYK2rXU4 bG5xJrOmIkF8DFtyF558F eOvyCAuLgziz8kou0zlfX r4MaY9XXOvnhMggCczTHS 5q6XuRp41C89j IHdpZHRoPSIxNSUiIHZhb Xfetv2xsE3jFj1+PGNvbC Z6xKG1fJ6qFeGuCsI2KLm qF134YjExuYKe Qciab4unq8hbfAh6ZsTtA EIdfuKqcJgtATH1l8JvKq 47M4CdhRgzl6LyJvt6xc2 0iRRfd2P5wEV7 S3LqSAItsnhekBCuzZsvV K1iWULqazprQYXefG6bHA GuT3z9XwJnOgW5LZkcW7S tziF1LFAntBFh ETqqHQP6Q81at0G2WGYgA PDqCAO7hAS5rU6fsLmkyx ogbGVmdDsgdmVydGljYWw uLQvmN432FIFn oLihRLUalW4hJTIukTJjw BdnZL2bGTZckofkOcWHEC FHPWPCJSxBYGARDZ17OO4 1hDSqu6J0pXF6 P4LvHRCbnfdduzfxjAR5P DStNCOavJ14xRAfKPqsSc 4yf4Y0f140TGBaEIUnwD0 7Ny4xlVbkQKLn vRKDyL8afnjef8agblhxA cAjAVOfTMg3ZAj8AETvmZ mlHfUbWPV8ExH8AFN6wMW ifC5mnExeijip xG8bQvo+AAMyKaawGRj4H jwvdGQ+VVWbQLS4oVowDC ekIWQvcB9iSPDeY7k5BxY rJrJ0TZxxH0Jq BAGtjqvfRd32pN8cIlDqM vK3VDbiC0CcmxA9YLGppH XkKVdgENX5O39wh5A1IMU lSSIfYKS0uWB6 jF2qrSjnxrjbdPTibMccn nQokYuwCYihNDsdV682QN FgoMywKjU5FWuxONVeID9 8OQ44gHAyt7O7 uQV3J9QnSCSulvodojhfi NV7JYVgXXBqbS84tUApAU mmPr3eg1Y1i809FDKaGMR itV87Gk6cdXog SAYgfZHBqE5vuqxfv1llf oxbXzLxDPKwILv2IKg8DT SmhQtuTaHwHPA2FkP6CLV 1bSGroG3lkYqn ignilI4jCrz+RmVtYWxlP T56QM53ySPxu1L3tGB9J3 CvYAOghtmkfavbbZS4ZFD sMZObjC93nARf KRhbQc2xl0G9u543DIEwS SKoyL15Jt2mpWjsSABoxE RIgK5wbapjt3slyfzvBxJ bBPLrIQx7NKj7 HRFibRisYvXkEUW9PfB0S HS6cKJtmN8dfHiqysktmJ 9wOyc+QG9lbxbmbkA6SD9 0XD39J6EnIhvy dGFibGU+PHRhYmxlIHdpZ HRoPScxMDAlJyBzdHlsZT 0zJu3qFPVdIHNlbXfbmNT lTbEta9ccOIMa AAhxRM9ndLbbJ3IszDB4G MGyx0b1Pa54K84nG6BqxP A+HLJakVM9sWM0bM8eEjL fPmU1QSzxQ610 VwXqhZRvDdmsh2ojs1hqy Kd0UpPxLRKonvPrvDnnAE V6o8YtAa45R08qIYtrYAY oPSIyMCUiIHZh xDuyxb2muC8xIh2+PGNvb JT5jJQ7mF0kFbUtMgM4NZ ztX482VfLbhIYtYewqW33 tH8LyyST+PHRy Beh3IBWgwVbiFC0ekYXaL OoxWo2lKOJ8EuEtFoGePW svO0OhJQVdptqfxwxqlJK 6KXWsQZQrzP45 Ge7qzUpqGm4aTNOkPDR3G YWlxFLmY7KcpM4yXtIlJE FzSYYpQ4QrjMHbVQhlS08 7JQgsEfT6FLVn ayCpF9IjWKWfwVihQiQ2l 8R7Gs0CqJmppHRmSG9mSa DoYSf0T0ElXkg8GCMydXi aGO3fgPWvZQjo Tn1noJywyNioPB3kXSGwf xhaq041ZnMnh1qbTCUubX ZqULqrUWO1O78qj5T6YGU aGUUrZJP1pST1 bQ6tyUwbocxfuXYsyFnln gJhfGrmZMwnRKnaN806HN FjyDysHuPNSmz5A5VpUms 7ZNHjgWqxCG2j iNHaBEqoEg6byCtmeDhdB I0yDZFsumpbn725YbKmx7 tpDCBqwWBwGSjnPUY3D14 db1S2IJCiUVYy CAE3eFY7yR3qaRwcjsdbd GVmdDsgdmVydGljYWwtYW tbX531ESUpbMdsIx6IDcf 3L8QuXku5OTBj nByrXU4mtEXmGCgjXg4ce VhcoZkmYU0xFFXvvbxyz9 95OsStp3dbMJLgiRYoBYo cAXR5E45wq5D0 AAVvGBDvSKZ2rKW2yK2to GlnbjogbGVmdDsgdmVydG inRHvoNCikF942GXMrgAz nPlBheWVyOjwv dGQ+FD36re70T9XkYchqY zv8MYAhCTK0bYF2bK4kZX WeULqsm3R9sLF7T1UshcT pji2jh3quZHNi ZTog (more content not included)... [facility] .Manual Abson 02-23-2021 Basophils/Leukocyte s Manual cnt (Bld) [Pure # fraction] 0.0 E9/L Normal 0.0-0.2 [facility] Comment on above: Performed By: #### 2 [id number], [id number], [id number], [id number], 7053699, [id number] ####[facility] [address] [place] [address] Eosinophils/Leukocy kenyon Manual cnt (Bld) [Pure # fraction] 0.0 E9/L Normal 0.0-0.5 [facility] Comment on above: Performed By: #### 2 [id number], [id number], [id number], [id number], 7849321, [id number] ####[facility] [address] [place] [address] Lymphocytes/Leukocy kenyon Manual cnt (Bld) [Pure # fraction] 1.8 E9/L Normal 1.0-4.0 [facility] Comment on above: Performed By: #### 2 [id number], [id number], 16854116, [id number], [id number], 9657791 ####[facility] [address] [place] [address] Monocytes/Leukocyte s Manual cnt (Bld) [Pure # fraction] 0.3 E9/L Normal 0.2-1.0 [facility] Comment on above: Performed By: #### 2 [id number], [id number], 37229718, 18115989, 6595571, [id number] ####[place] [address] [place] [address] Neutrophils/Leukocy kenyon Auto (Bld) [Pure # fraction] 1.7 E9/L Low 2.0-7.5 [facility] Comment on above: Performed By: #### 2 368859, [id number], 74406382, 69917123, 7723986, 9501049 ####[facility] [address] [place] [address] BMPon 02-23-2021 Creatinine [Mass/Vol] 0.7 mg/dL Normal 0.5-1.3 [facility] Comment on above: Performed By: #### 2 927674, 17247675, 63530309, 03089050, 3320207, 7443591 ####[facility] [address] [place] [address] Urea nitrogen [Mass/Vol] 7 mg/dL Normal 5-21 [facility] Comment on above: Performed By: #### 2 889467, 14590472, 37941002, 03374910, 7620867, 5079651 ####[facility] [address] [place] [address] Urea nitrogen/Creatinine [Mass ratio] 10 No Units Normal 10-20 [facility] Comment on above: Performed By: #### 2 587886, 75295768, 07144516, 32873690, 0971213, 6540854 ####[facility] [address] [place] [address] Anion gap [Moles/Vol] 13 mmol/L Normal 6-16 [facility] Comment on above: Performed By: #### 2 007498, 46201564, 25464359, 99156502, 7184024, 8052119 ####[facility] [address] [place] [address] Calcium [Mass/Vol] 9.0 mg/dL Normal 8.9-11.1 [facility] Comment on above: Performed By: #### 2 597899, 82418543, 98220741, 68630664, 6628115, 3904375 ####[facility] [address] [place] [address] Chloride [Moles/Vol] 103 mmol/L Normal 101-111 [facility] Comment on above: Performed By: #### 2 799923, 43068458, 55556340, 92199983, 4113981, 3253616 ####[facility] [address] [place] [address] CO2 [Moles/Vol] 22 mmol/L Normal 21-31 [facility] Comment on above: Performed By: #### 2 943151, 21051124, 24179397, 51121564, 5527742, 5008577 ####[facility] [address] [place] [address] Glucose [Mass/Vol] 129 mg/dL Normal 55-199 [facility] Comment on above: Result Comment: If t his glucose result represents a fasting glucose, interpretation should refer to the following reference range: 55-99 mg/dL Performed By: #### 2 021811, 78079132, 35346781, 53387858, 4864775, 1231036 ####[facility] [address] [place] [address] Potassium [Moles/Vol] 3.3 mmol/L Low 3.5-5.3 [facility] Comment on above: Performed By: #### 2 822329, 17418024, 20329457, 55322201, 5059566, 5876873 ####[facility] [address] [place] [address] Sodium [Moles/Vol] 135 mmol/L Normal 135-145 [facility] Comment on above: Performed By: #### 2 488667, 30495129, 20630589, 42309568, 4641797, 8709609 ####[facility] [address] [place] [address] CBC w/ Auto Diffon Erythrocyte distribution width (RBC) [Ratio] 13.5 % Normal 10.9-14.2 [facility] Comment on above: Performed By: #### 2 566113, 15133130, 63027213, 67417418, 2804512, 7616341 ####[facility] [address] [place] [address] Hematocrit (Bld) [Volume fraction] 37.1 % Normal 34.0-46.0 [facility] Comment on above: Performed By: #### 2 832399, 45503358, 27765915, 18408231, 5662302, 8394157 ####[facility] [address] [place] [address] Hemoglobin (Bld) [Mass/Vol] 12.5 g/dL Normal 12.0-16.0 [facility] Comment on above: Performed By: #### 2 079742, 37678090, 47001246, 91556879, 8339333, 5102444 ####[facility] [address] [place] [address] MCH (RBC) [Entitic mass] 29.4 pg Normal 27.0-34.0 [facility] Comment on above: Performed By: #### 2 106238, 52849060, 89874252, 89408912, 4273832, 5212076 ####[facility] [address] [place] [address] MCHC (RBC) [Mass/Vol] 33.6 g/dL Normal 31.4-36.0 [facility] Comment on above: Performed By: #### 2 851060, 63172464, 33328882, 53437155, 8514731, 1414939 ####[address] [place] [address] MCV (RBC) [Entitic vol] 87.4 fL Normal 80.0-100.0 [facility] Comment on above: Performed By: #### 2 556758, 62646078, 46901136, 60181198, 2155074, 0739188 ####[address] [address] Platelet mean volume (Bld) [Entitic vol] 9.4 fL Normal 6.4-10.8 [facility] Comment on above: Performed By: #### 2 901910, 41379473, 12776493, 67216032, 0163056, 5006317 ####[address] [address] Platelets (Bld) [#/Vol] 208.0 E9/L Normal 150.0-500.0 [facility] Comment on above: Performed By: #### 2 166131, 99004914, 14210487, 93813293, 8333134, 9895062 ####[address] [address] RBC (Bld) [#/Vol] 4.2 E12/L Low 4.3-5.9 [facility] Comment on above: Performed By: #### 2 767403, 61044154, 79523033, 57121640, 2256135, 4269720 ####[address] [place] [address] WBC corrected for nucl RBC Auto (Bld) [#/Vol] 3.8 E9/L Low 4.0-11.0 [facility] Comment on above: Performed By: #### 2 586836, 52800351, 80840011, 40574168, 5692155, 4064892 ####[facility] [address] [place] [address] Consent for Treatmenton 02-06 Consent for Treatment [id number]:127 Normal [facility] Discharge Instructionson Discharge Instructions [id number]:127 Normal [facility] ED Clinical Summaryon 2020 ED Clinical Summary [address] [address] ED Clinical Summary Person Information Name: BROOKLYNN GTZ [facility] Age: 26 Years : 1995 Sex: Female Language: [place] PCP: MICHAEL HELMS MD Marital Status: Phone: [phone] Visit Id: Visit Reason: Shortness of breath; Chest pain; sob, chest pain Speciality: Acuity: 3 Enc Type: Emergency Med Service: Emergency Arrival: 02/23/2021 12:58:05 Discharge: 02/23/2021 15:20:32 LOS: 000 02:22 Checkin: 02/23/2021 12:58:05 Checkout: 02/23/2021 15:20:32 Dispo Type: Home (Routine DC) EVENTS: Event Name Event Status Request Date/Time Start Date/Time Complete Date/Time Arrive Complete 02/23/2021 12:58:05 02/23/2021 12:58:05 02/23/2021 12:58:05 Document Home Meds Request 02/23/2021 12:58:05 Triage Complete 02/23/2021 12:58:05 02/23/2021 13:10:48 02/23/2021 13:10:48 Bed Assign Complete 02/23/2021 13:00:33 02/23/2021 13:00:33 02/23/2021 13:00:33 Dr Exam Complete 02/23/2021 13:00:33 02/23/2021 13:01:19 02/23/2021 13:01:19 RN Exam Complete 02/23/2021 13:00:33 02/23/2021 14:20:18 02/23/2021 14:20:18 Registration Complete 02/23/2021 13:01:19 02/23/2021 13:31:20 02/23/2021 13:31:20 EKG Complete 02/23/2021 13:05:32 02/23/2021 13:10:21 Dr Exam Complete 02/23/2021 13:13:48 02/23/2021 13:13:48 02/23/2021 13:13:48 Meds Admin Request 02/23/2021 13:22:06 X-Ray Complete 02/23/2021 13:22:06 02/23/2021 13:38:06 02/23/2021 13:59:24 Pending Labs Complete 02/23/2021 13:22:06 02/23/2021 14:24:37 Lab Complete 02/23/2021 13:22:06 02/23/2021 14:24:37 Reg Complete Request 02/23/2021 13:31:20 Reg Bed Request Complete 02/23/2021 13:31:20 02/23/2021 13:31:20 02/23/2021 13:31:20 Pending Labs Complete 02/23/2021 13:42:04 02/23/2021 13:42:04 02/23/2021 14:07:12 Lab Complete 02/23/2021 13:42:04 02/23/2021 13:42:04 02/23/2021 14:07:12 Pending Labs Complete 02/23/2021 13:55:06 02/23/2021 13:55:06 02/23/2021 13:55:06 Wet Read Request 02/23/2021 13:59:25 Pending Labs Complete 02/23/2021 14:16:36 02/23/2021 14:16:36 02/23/2021 14:24:37 Lab Complete 02/23/2021 14:16:36 02/23/2021 14:16:36 02/23/2021 14:24:37 Pending Labs Complete 02/23/2021 14:16:37 02/23/2021 14:16:37 02/23/2021 14:24:37 Discharge Complete 02/23/2021 14:45:16 02/23/2021 15:23:48 02/23/2021 15:23:48 Transfer Complete 02/23/2021 15:23:48 02/23/2021 15:23:48 02/23/2021 15:23:48 ADDRESS: [id number] [place] [id number] PHYS DOC NOTES: MEDICAL INFORMATION: Prescriptions Given: Medications to Continue with No Changes Other Medications erenumab (Aimovig SureClick) Subcutaneous once a month. fluoxetine 10 Milligram By Mouth every day. hydrochlorothiazide 12.5 Milligram By Mouth every day. medroxyPROGESTERone (medroxyPROGESTERone 10 mg Tab) 10 Milligram By Mouth every day. 10 days out of each month to regulate cycle. metformin 500 Milligram By Mouth 2 times a day. PATIENT EDUCATION INFORMATION: Instructions: Post-Injection Inflammatory Reaction Follow up: With: Address: When: MICHAEL HELMS [address] [place] [address] [employer] (1) In 3 days 02/26/2021 DIAGNOSIS: 1:Vaccine reaction [facility] ED Note-Physicianon 02-24-20 ED Note-Physician Basic Information Time Seen: Robert Urena PA-C 02/23/2021 13:01 Chief Complaint Had COVID vaccine saturday adn since has had palpitations and chest pain. along with some SOB. History of Present Illness 26-year-old female comes to the ED for evaluation of vaccine reaction. Patient received a Covid booster a few days ago. Since that time she has had generalized malaise myalgias. She is been weak and fatigued. She has had palpitations. She is positive chest pain shortness of breath. No vomiting. No diarrhea. No prior treatments. Review of Systems A 10 point review of systems is negative except as noted above. Medical and Surgical History: Reviewed and noted Social history: Lives at home Tobacco: Denies Physical Exam Vitals & Measurements T: 36.8 ?C (Oral) HR: 86(Peripheral) RR: 18 BP: 139/104 SpO2: 100% HT: 170.18 cm HT: 170.2 cm WT: 110 kg WT: 110.0 kg BMI: 37.98 Nurses notes and vital signs reviewed and patient is not hypoxic. General: The patient appears well, resting comfortably. Skin: Warm, dry. Head: Atraumatic. Neck: No JVD. Eye: Normal conjunctiva. Ears, Nose, Mouth, and Throat: Moist mucous membranes. Cardiovascular: Strong distal pulses. Chest wall: Respiratory: Respirations are nonlabored. Back: Normal range of motion. Musculoskeletal: Normal ROM with no gross deformity. Gastrointestinal: Urological: Neurological: Awake and alert. No focal deficits. Follows commands. Psychiatric: Cooperative. Medical Decision Making Laboratory studies reviewed and noted. EKG shows no ischemic changes. Chest x-ray showed no acute infiltrate. Patient feels improved after IV fluids and Toradol. Vaccine reactions are discussed. She is discharged home PCP follow-up. Patient was encouraged to return to the ED if symptoms worsen or change. Assessment/Plan 1. Vaccine reaction ([id number].Z95A: Adverse effect of other vaccines and biological substances, initial encounter) Orders: ketorolac, 30 mg = 1 mL, Injection, IV Push, Once, Stop date 02/23/21 13:21:00 EST, STAT, Start date 02/23/21 13:21:00 EST, 02/23/21 13:21:00 EST Sodium Chloride 0.9% intravenous solution 1,000 mL, 1,000 mL, IV, Bolus, STAT, Start date 02/23/21 13:21:00 EST, Total volume (mL): 1,000, 110 kg, 2.28, m2 .Manual Abs Basic Metabolic Panel CBC w/ Auto Diff eGFR Extra SST Tube Manual Diff Troponin 0 Hr. XR Chest Single View Medications Administered Given Sodium Chloride 0.9% IV Bibiana 1000 mL 1,000 mL, 1000 mL, IV ketorolac 30 mg/mL Inj 1 mL, 30 mg, IV Push Disposition Plan Patient Discharge Condition Disposition: Discharged home Condition: Improved and stable Counseled: Patient and/or family were counseled to workup, results, treatment plan and follow-up recommendations Discharge Prescription List Prescriptions No active prescription medications Follow-up With When Contact Information MICHAEL HELMS In 3 days 02/26/[address] [address]- Business (1) Additional Instructions: Patient Education Post-Injection Inflammatory Reaction Attestation Patient seen and evaluated by the physician community program assistant. Attending physician was present in the emergency department and supervised care. This report was transcribed using voice recognition software. Every effort was made to ensure accuracy, however, inadvertently computerized auto hauler mistakes may be present. Appropriate healthcare PPE was used in evaluating this patient. The patient was placed in a mask. The healthcare provider was wearing mask, gloves, googles and utilizing proper hand hygiene. All equipment was properly cleansed. Problem List/Past Medical History Ongoing Adjustment disorder with mixed anxiety and depressed mood Anxiety Calcium deficiency Depression Migraine Polycystic ovarian syndrome Historical Hyperkeratosis Kidney stones Pilar cyst Procedure/Surgical History excision of pilar cyst - local (01/27/2015), Lithotripsy. Medications Inpatient Sodium Chloride 0.9% IV Bibiana 1000 mL 1,000 mL, 1000 mL, IV Home Aimovig SureClick, SubCutaneous, qMonth fluoxetine, 10 mg, Oral, Daily hydrochlorothiazide, 12.5 mg, Oral, Daily medroxyPROGESTERone 10 mg Tab, 10 mg, Oral, Daily metformin, 500 mg, Oral, BID Allergies No Known Allergies Social History Alcohol Current, 1-2 times per month, 10/11/2018 Substance Abuse - Denies Substance Abuse, 10/11/2018 Tobacco - Denies Tobacco Use, 03/18/2014 Never (less than 100 in lifetime) Tobacco Use:., 10/11/2018 Never (less than 100 in lifetime) Tobacco Use:. Never Smokeless Tobacco Use:., 10/11/2018 Family History Family history is negative Lab Results WBC: 3.8 E9/L Low (02/23/21 13:30:00) RBC: 4.2 E12/L Low (02/23/21 13:30:00) HGB: 12.5 gm/dL (02/23/21 13:30:00) Hct: 37.1 % (02/23/21 13:30:00) MCV: 87.4 fL (02/23/21 13:30:00) MCH: 29.4 pg (02/23/21 13:30:00) MCHC: 33.6 gm/dL (02/23/21 13:30:00) RDW: 13.5 % (02/23/21 (more content not included)... [facility] Comment on above: Result Comment: Elec tronically Signed By: Robert Urena PA-C\.br\Date and Time Signed: 02/23/21 14:48 EST\.br\Electronically Co-Signed By: Julee Herrera M.D.\.br\Date and Time Co-Signed: 02/23/21 15:04 EST ED Patient Education Noteon 02-23-2021 ED Patient Education Note Dermatology Post-Injection Inflammatory Reaction A post-injection inflammatory reaction is swelling, irritation, and other problems that can develop after a person gets a shot (injection). The reaction can develop at and around the injection site or far away from the injection site. In some cases, it can develop right away and last for a short time. In other cases, it can develop weeks after the injection and last for several hours or days. In most cases, the reaction is not serious and will go away on its own. What are the causes? This condition may be caused by: ? An allergy to the needle or medicine. ? A response by your body's defense system (immune system). ? Damage to the surrounding tissue from the injection. ? Germs that enter the body through the injection site. What are the signs or symptoms? Common symptoms of this condition include: ? Itchiness. ? Redness. ? Warmth. ? Rash. ? Swelling. ? Tenderness. ? Pain. Other symptoms include: ? Drainage. ? Fever or chills. ? Muscle aches. ? Nausea or vomiting. ? Loss of appetite. ? Headache. ? Dizziness. In severe cases, seizures, asthma, or a severe allergic reaction (anaphylaxis) can occur. These cases are rare. How is this diagnosed? This condition may be diagnosed with a physical exam. During the exam, a shoalwater may be drawn around the injection site. The shoalwater helps to show whether redness in the area is spreading. How is this treated? Treatment for this condition depends on what caused the reaction and how severe the reaction is. Treatment may include: ? Putting an ice pack over the injection site. ? Taking a nonsteroidal anti-inflammatory drug (NSAID) to lessen swelling and itching. ? Taking antibiotic medicine. ? Taking mpda-lcc-cciiegk pain medicine. If the reaction affects a joint, you may also need to rest the joint for a while. Follow these instructions at home: Medicines ? If you were prescribed antibiotic medicine, take or apply it as told by your health care provider. Do not stop taking or applying the antibiotic even if you start to feel better. ? Take kriq-zkg-zyuxfrq and prescription medicines only as told by your health care provider. ? Ask your health care provider if the medicine prescribed to you requires you to avoid driving or using heavy machinery. Managing pain and swelling ? If directed, put ice on the affected area: ? Put ice in a plastic bag. ? Place a towel between your skin and the bag. ? Leave the ice on for 20 minutes, 2?3 times a day. General instructions ? If the reaction affects a joint, rest your joint. Ask your health care provider when you can start to use your joint again. ? Keep the injection site clean. ? Keep all follow-up visits as told by your health care provider. This is important. Contact a health care provider if: ? Your symptoms last for several hours. ? You have a fever or chills. ? You have muscle aches. Get help right away if: ? Your symptoms get worse. ? You have trouble breathing. ? You have a rash, raised bumps (hives), or severe itching. ? You have seizures. Summary ? A post-injection inflammatory reaction is swelling, irritation, and other problems that can develop after a person gets a shot (injection). ? It may be caused by an allergy, an immune response, damage to the tissues surrounding the injection, or an infection. ? This condition may be treated by icing the area and by taking medicine. This information is not intended to replace advice given to you by your health care provider. Make sure you discuss any questions you have with your health care provider. Document Released: 12/05/2011 Document Revised: 07/17/2019 Document Reviewed: 03/02/2019 Elsevier Patient Education ? 2019 [employer] [facility] ED Patient Summaryon 021 ED Patient Summary [address] [address] Patient Discharge Instructions Person Information Name: BROOKLYNN GTZ Age: 26 Years Arrival Date: 02/23/2021 12:58:05 Discharge Diagnosis: 1:Vaccine reaction Primary Care Physician: MICHAEL HELMS MD Provider Information Primary Provider: Julee Herrera M.D. Advanced Financial Economist:Robert Urena PA-C The exam and treatment you received in the Emergency Department were for an urgent problem and are not intended as complete care. It is important that you follow up with a doctor, nurse practitioner, or physician?s community program assistant for ongoing care. If your symptoms become worse or you do not improve as expected and you are unable to reach your usual health care provider, you should return to the Emergency Department. We are available 24 hours a day. BROOKLYNN TGZ has been given the following list of patient education materials, prescriptions and follow-up instructions: Follow-up Instructions: With: Address: When: MICHAEL HELMS [address] [place] [address] Business (1) In 3 days 02/26/2021 In the event that this physician does not participate in your insurance network, please consult with your insurance company to find a nearby participating provider. Patient Education Materials: Post-Injection Inflammatory Reaction A MESSAGE TO ALL PATIENTS REGARDING OPIOIDS PRESCRIPTION OPIOIDS: WHAT YOU NEED TO KNOW Prescription opioids can be used to help relieve wpssevpb-fr-vfscyf pain and are often prescribed following a surgery or injury, or for certain health conditions. These medications can be an important part of the treatment but also come with serious risks. It is important to work with your healthcare provider to make sure you are getting the safest, most effective care. WHAT ARE THE RISKS AND SIDE EFFECTS OF OPIOID USE? Prescription opioids carry serious risks of addiction and overdose, especially with prolonged use. An opioid overdose, often marked by slowed breathing, can cause sudden . The use of prescription opioids can have a number of side effects as well, even when taken as directed: ? Tolerance?meaning you might need to take more of the medication for the same pain relief ? Physical dependence?meaning you have symptoms of withdrawal when a medication is stopped ? Increased sensitivity to pain ? Constipation ? Nausea, vomiting, and dry mouth ? Sleepiness and dizziness ? Confusion ? Depression ? Low levels of testosterone that can result in lower sex drive, energy, and strength ? Itching and sweating RISKS ARE GREATER WITH: ? History of drug misuse, substance use disorder, or overdose ? Mental health conditions (such as depression or anxiety) ? Sleep apnea ? Older age (65 years and older) ? Avoid alcohol while taking prescription opioids. Also, unless specifically advised by your health care provider, medications to avoid include: ? Benzodiazepines (such as Xanax or Valium) ? Muscle relaxants (such as Soma or Flexeril) ? Hypnotics (such as Ambien or Lunesta) ? Other prescription opioids KNOW YOUR OPTIONS Talk to your health care provider about ways to manage your pain that don?t involve prescription opioids. Some of these options may actually work better and have fewer risks and side effects. Options may include: ? Pain relievers such as acetaminophen, ibuprofen, and naproxen ? Some medication that are also used for depression or seizures ? Physical therapy and exercise ? Cognitive behavioral therapy, a psychological, goal-directed approach, in which patients learn how to modify physical, behavioral, and emotional triggers of pain and stress. IF YOU ARE PRESCRIBED OPIOIDS FOR PAIN: ? Never take opioids in greater amounts or more often than prescribed. ? Follow up with your primary health care provider. o Work together to create a plan on how to manage your pain. o Talk about ways to help manage your pain that don?t involve prescription opioids. o Talk about any and all concerns and side effects. ? Help prevent misuse and abuse o Never sell or share prescription opioids. o Never use another person?s prescription opioids. ? Store prescription opioids in a secure place and out of reach of others (this may include visitors, children, friends, and family). ? Safely dispose of unused prescription opioids: Find your community drug take-back program or your pharmacy mail-back program, or flush them down the toilet, following guidance from the Food and Drug Administration (www.fda.gov/Drugs/Re sourcesForYou). ? Visit www.cdc.gov/drugoverd ose to learn about the risks of opioids abuse and overdose. ? If you believe you may be struggling with addiction, tell your health healthcare administrative assistant and ask for guidance or call SAMHSA?S National Helpline at 1-376-199-IPFH. (more content not included)... [facility] Manual Diffon 02-23-2021 Band form neutrophils/100 WBC (Bld) 6 % Normal 0-10 [facility] Comment on above: Order Comment: Order Added by Discern Expert. Performed By: #### 2 [id number], [id number], [id number], [id number], [id number], [id number] ####[facility] [address] [place] [place] [address] Basophils/100 WBC (Bld) 0 % Normal 0-2 [facility] Comment on above: Order Comment: Order Added by Discern Expert. Performed By: #### 2 [id number], [id number], [id number], [id number], [id number], [id number] ####[facility] [address] [place] [address] Eosinophils/100 WBC (Bld) 1 % Normal 0-8 [facility] Comment on above: Order Comment: Order Added by Discern Expert. Performed By: #### 2 [id number], [id number], [id number], [id number], [id number], [id number] ####[facility] [address] [place] [address] Lymphocytes/100 WBC (Bld) 44 % Normal 14-50 [facility] Comment on above: Order Comment: Order Added by Discern Expert. Performed By: #### 2 [id number], [id number], [id number], [id number], [id number], [id number] ####[facility] [address] [facility] [place] [address] Monocytes/100 WBC (Bld) 7 % Normal 4-14 [facility] Comment on above: Order Comment: Order Added by Discern Expert. Performed By: #### 2 [id number], [id number], [id number], [id number], [id number], [id number] ####[facility] [address] [place] [address] Morphology Mateusz (Bld) [Interp] Normal [facility] Comment on above: Order Comment: Order Added by Discern Expert. Performed By: #### 2 [id number], [id number], [id number], [id number], [id number], [id number] ####[facility] [address] [place] [address] Segmented neutrophils/100 WBC (Bld) 39 % Normal 36-75 [facility] Comment on above: Order Comment: Order Added by Discern Expert. Performed By: #### 2 [id number], [id number], [id number], [id number], 7298238, 6109574 ####[facility] [address] [place] [address] Variant lymphocytes LM Ql (Bld) 3 % Invalid Interpretation Code [facility] Comment on above: Order Comment: Order Added by Discern Expert. Performed By: #### 2 146593, [id number], [id number], [id number], [id number], [id number] ####[facility] [address] [place] [address] Prescriptions/Work Noteson 1 04-25-2020 Prescriptions/Work Notes [id number] .[id number]:127 [facility] Troponin 0 Hr.on 02-23-2021 Troponin I.cardiac [Mass/Vol] 2.30 pg/mL Low 10.10-27.10 [facility] Comment on above: Result Comment: The 95% CI (Confidence Interval) PPV (Positive Predictive Value) for myocardial infarction in females is 38 pg/mL, in males 51 pg/mL. The results should be used in conjunction with clinical conditions of myocardial infarction. (Access High Sensitivity Troponin I Instructions For Use, Emre [place], November 2017) Performed By: #### 2 [id number], [id number], [id number], [id number], [id number], [id number] ####[facility] [address] [place] [address] XR Chest Single Viewon 02-23 XR Chest Single View Exam Date/Time: 02/23/2021 13:59 EST Reason for Exam: Cough Report IMPRESSION: THERE ARE NO ACUTE CARDIOPULMONARY CHANGES CLINICAL HISTORY: Cough COMPARISON: NONE. FINDINGS: The cardiomediastinal silhouette is unremarkable. The lungs are free of infiltrates effusions or consolidations. The bones and soft tissues are within normal limits. FINAL REPORT Dictated: 02/23/2021 2:40 pm Mckeon MD, Ramírez V. Signed (Electronic Signature): 02/23/2021 2:40 pm Signed by: Ramírez Mckeon MD, V. Transcribed by: KEMAR Technologist: DYAN [facility] eGFRon 02-23-2021 GFR/1.73 sq M.predicted among blacks MDRD (S/P/Bld) [Vol rate/Area] mL/min/{1.73_m2} Normal >=59 [facility] Comment on above: Order Comment: Order added by Discern Expert. Result Comment: eGFR is race adjusted. AA=. Performed By: #### 2 [id number], [id number], [id number], [id number], 7435194, [id number] ####[facility] [address] [place] [address] GFR/1.73 sq M.predicted among non-blacks MDRD (S/P/Bld) [Vol rate/Area] mL/min/{1.73_m2} Normal >=59 [facility] Comment on above: Order Comment: Order added by Discern Expert. Result Comment: Nurse Practical jorden kidney disease could be indicated at eGFR's of less than 60 mL/min/1.73m2. Kidney failure is indicated at less than 15 mL/min/1.73m2. Performed By: #### 2 [id number], [id number], [id number], [id number], [id number], [id number] ####[facility] [address] [place] [address] Ambulatory Clinical Summaryo 10-14-2020 Ambulatory Clinical Summary {[id number] [facility] Vital Signs Date Time Vital Sign Value Performing Clinician Facility 06-22-2022 09:21-0400 Body height 167.6 cm ANTELMO Bills MD Work Phone: [facility] 06-22-2022 09:21-0400 Body weight 112.49 kg ANTELMO Bills MD Work Phone: [facility] 08-08-2021 14:31-0400 Body temperature 98.24 [degF] Sourav Stinson [facility] 08-08-2021 14:31-0400 Diastolic blood pressure 97 mm[Hg] Sourav Stinson [facility] 08-08-2021 14:31-0400 Heart rate 94 /min Sourav Stinson [facility] 08-08-2021 14:31-0400 Respiratory rate 18 /min Sourav Stinson [facility] 08-08-2021 14:31-0400 SaO2% (BldA) [Mass fraction] 98 % Sourav Stinson [facility] 08-08-2021 14:31-0400 Systolic blood pressure 137 mm[Hg] Sourav Stinson [facility] Encounters Encounter Date Encounter Type Care Provider Facility Start: 06-13-2023 End: 06-13-2023 ambulatory CELESTE JACINTO Not Available Start: 03-05-2023 End: 03-05-2023 ambulatory CELESTE JACINTO Not Available Start: 08-14-2022 Encounter for genera l adult medical examination without abnormal findings DR MICHAEL HELMS [facility] Start: 08-07-2022 End: 08-08-[address] MICHAEL HELMS Facility:[facility] Start: 08-07-2022 End: 08-08-2022 Encounter for general adult medical examination without abnormal findings DR MICHAEL HELMS Facility:[facility] Start: 06-22-2022 End: 06-22-2022 Patient encounter procedure J Yakov Bills MD Work Phone: Plastic Surgery Comment on above: OPENED IN ERROR (Jeannie danielle Dx) Start: 06-14-2022 End: 06-14-2022 ambulatory SUMMER ELON Facility:[facility] Start: 02-02-2022 End: 02-03-[address] MICHAEL HELMS Facility:[facility] Start: 01-31-2022 End: 01-31-[address] CELESTE JACINTO . Facility:[facility] Start: 08-23-2021 End: 08-24-[address] MICHAEL HELMS Facility:[facility] Start: 08-08-2021 End: 08-08-2021 Emergency department patient visit Sourav Stinson [facility] Procedures Date Procedure Procedure Detail Performing Clinician Start: 01-27-2015 excision of pilar [address] - local Sourav Stinson Lithotripsy Sourav Stinson Plan of Treatment Date Care Activity Detail Author Start: 04-08-2022 DEPRESSION ASSESSMENT DEPRESSION ASS ESSMENT [facility] Start: 12-07-2021 Influenza vaccination INFLUENZA (#1) [facility] Start: 04-18-2021 COVID-19 VACCINE (2 - Booster for Vinny series) COVID-19 VACCINE (2 - Booster for Vinny series) [facility] Start: 02-03-2017 PAP TESTING PAP TESTING [facility] Start: 02-03-2015 Urine microalbumin profile DTAP,TDAP ,TD (1 - Tdap) [facility] Start: 02-03-2014 HEPATITIS C SCREENING HEPATITIS C SC REENING [facility] Start: 02-03-2014 HIV SCREENING [facility]CREENING [facility] [facility] Start: 02-03-2010 PEDS TO ADULT TRANSI TION ANNUAL ASSESSMENT PEDS TO ADULT TRANSITION ANNUAL ASSESSMENT [facility] Start: 2008 PEDS TO ADULT TRANSI TION INITIAL DISCUSSION PEDS TO ADULT TRANSITION INITIAL DISCUSSION [facility] Start: 02-03-2007 HPV VACCINE (1 - 2-d ose series) HPV VACCINE (1 - 2-dose series) [facility] Start: 1996 HEPATITIS B (1 of 3 - 3-dose series) HEPATITIS B (1 of 3 - 3-dose series) [facility] Payers Date Payer Category Payer Unknown [id number] 2.16.84 [id number] 1996 Unknown [id number] 2.16.84 [id number] 1996 Unknown [id number] 2.16.84 [id number] 1996 Unknown [id number] 2.16.84 [id number] 1996 Unknown [id number] 2.16.84 [id number] 1996 Unknown [id number] 2.16.84 [id number] 1996 Unknown [id number] 1959 Private Health Insurance [id number] 1959 Unknown [id number] Social History Date Type Detail Facility Start: 10-11-2018 End: 06-22-2022 Tobacco smoking status Never smoked tobacco (finding) [facility] Sex Assigned At Female [facility] Start: 06-22-2022 Tobacco use and exposure Smokeless tobacco non-user [facility] Start: 1996 Sex Assigned At Not on file [facility] History of Present illness Narrative 06-22-2022 Raya Brooks RN - 06/22/2022 9:18 AM EDT Note Date & Type Note Facility 06-22-2022 History of Presen t illness Narrative OPENED IN ERROR documented in this encounter [facility] Clinical Note 08-23-2021 Note Date & Type Note Facility 08-23-2021 Note PROCEDURE: XR FINGER MIN 2 VIEWS HISTORY: Pain in finger of right hand ; dog bite to right middle finger 2 weeks ago; numbness, unable to straighten finger COMPARISON: None. FINDINGS: BONES:Tiny cortical fracture along lateral margin of mid third proximal phalanx adjacent opening of a vascular channel. SOFT TISSUES:Soft tissue swelling of third digit. No radiopaque foreign body. EFFUSION:None visible. OTHER: Negative. IMPRESSION: 1. Tiny cortical fracture/chip fracture involving the lateral margin of third proximal phalanx. 2. Soft tissue swelling. No visible foreign body. Electronically authenticated by: CARMEN SOLORIO Date: 2021-08-23 14:56 [facility] Discharge instructions 08-08-2021 Note Date & Type Note Facility 08-08-2021 Hospital Discharg e instructions Patient Education 08/08/2021 15:44:15 Animal Bite, Adult, [id number] Animal Bite, Adult Animal bite wounds can be mild or serious. It is important to get medical treatment to prevent infection. Ask your doctor if you need treatment to prevent an infection that can spread from animals to humans (rabies). Follow these instructions at home: Wound care Follow instructions from your doctor about how to take care of your wound. Make sure you: ?Wash your hands with soap and water before you change your bandage (dressing). If you cannot use soap and water, use hand aviation technician. ?Change your bandage as told by your doctor. ?Leave stitches (sutures), skin glue, or skin tape (adhesive) strips in place. They may need to stay in place for 2 weeks or longer. If tape strips get loose and curl up, you may trim the loose edges. Do not remove tape strips completely unless your doctor says it is okay. Check your wound every day for signs of infection. Check for: ?More redness, swelling, or pain. ?More fluid or blood. ?Warmth. ?Pus or a bad smell. Medicines Take or apply ihwz-zxp-[id number] and prescription medicines only as told by your doctor. If you were prescribed an antibiotic, take or apply it as told by your doctor. Do not stop using the antibiotic even if your wound gets better. General instructions Keep the injured area raised (elevated) above the level of your heart while you are sitting or lying down. If directed, put ice on the injured area. ?Put ice in a plastic bag. ?Place a towel between your skin and the bag. ?Leave the ice on for 20 minutes, 2 3 times per day. Keep all follow-up visits as told by your doctor. This is important. Contact a doctor if: You have more redness, swelling, or pain around your wound. Your wound feels warm to the touch. You have a fever or chills. You have a general feeling of sickness (malaise). You feel sick to your stomach (nauseous). You throw up (vomit). You have pain that does not get better. Get help right away if: You have a red streak going away from your wound. You have any of these coming from your wound: ?Non-clear fluid. ?More blood. ?Pus or a bad smell. You have trouble moving your injured area. You lose feeling (have numbness) or feel tingling anywhere on your body. Summary It is important to get the right medical treatment for animal bites. Treatment can help you to not get an infection. Ask your doctor if you need treatment to prevent an infection that can spread from animals to humans (rabies). Check your wound every day for signs of infection, such as more redness or swelling instead of less. If you have a red streak going away from your wound, get medical help right away. This information is not intended to replace advice given to you by your health care provider. Make sure you discuss any questions you have with your health care provider. Document Released: 03/25/2006 Document Revised: 03/20/2018 Document Reviewed: 10/03/2017 [employer] Patient Education [employer] Follow Up Care 08/08/2021 14:30:18 With:MICHAEL HELMS Address: [address] [place], [place] [address] [address] Business (1) When:08/11/2021 15:01:11 [facility] Evaluation + Plan note Note Date & Type Note Facility Evaluation + Plan note No data available for this section [facility] Evaluation note Note Date & Type Note Facility Evaluation note Diagnosis OPENED IN ERROR- Primary To allow closing an encounter opened in error (used in SmartSet) documented in this encounter [facility] Summary Purpose Family History No Family History Records FoundNo Family History Records FoundNo Family History Records FoundNo Family History Records Found Advance Directives No Advanced Directives Records FoundNo Advanced Directives Records FoundNo Advanced Directives Records FoundNo Advanced Directives Records Found Additional Source Comments INFORMATION SOURCE (unrecogn ized section and content) DATE CREATED AUTHOR 08/12/2021 [facility] DATE CREATED AUTHOR AUTHOR'S ORGANIZ ATION 09/12/2021 [facility] dical Specialist DATE CREATED AUTHOR AUTHOR'S ORGANIZ ATION 08/15/2022 [facility] DATE CREATED AUTHOR AUTHOR'S ORGANIZ ATION 06/14/2023 [facility] dical Specialists EPIC Source Comments (unrecognize d section and content) In the event this informatio n is protected by the Federal Confidentiality of Alcohol and Drug Abuse Patient Records regulations: The Federal rules restrict any use of the information to criminally investigate or prosecute any alcohol or drug abuse patient.[facility] Reason for Visit (unrecogniz ed section and content) Reason Comments Opened In Error Care Teams (unrecognized sec tion and content) Pricing Strategist Relationship Specialty Start Date End Date Michael Helms [address] [place] [address] PCP - General Family Medicine 06/08/22 FOR RECORDS PERTAINING TO PATIENTS WHO ARE OR HAVE BEEN ENROLLED IN A CHEMICAL DEPENDENCY/SUBSTANCEABUSE PROGRAM, SOME INFORMATION MAY BE OMITTED. This clinical summary was aggregated from multiple sources. Caution should be exercised in using it in the provision of clinical care. This summary normalizes information from multiple sources, and as a consequence, information in this document may materially change the coding, format and clinical context of patient data. In addition, data may be omitted in some cases. CLINICAL DECISIONS SHOULD BE BASED ON THE PRIMARY CLINICAL RECORDS. [employer] provides no warranty or guarantee of the accuracy or completeness of information in this document.
== END 2023-06-19 20:13 | disposition home or self-care (01) ==
LOC: LAB 20:12
PROVIDERS: PCP Family Medicine; Visit Provider Obstetrics & Gynecology
DX: N90.7 Vulvar cyst (principal)
CPT/HCPCS: 87070; 87150; 87186

== ENCOUNTER 2023-07-22 13:06 | Outpatient (OUT) | payer OTHER, SELFPAY ==
--- OUTSIDE RECORDS SUMMARY | 2023-07-22 13:29 | XMS_ITS | CCD ---
Author Organization [facility] Care Team Providers Care Talent Recruiter Name Role Phone MICHAEL HELMS Primary Care Physician Michael Helms Primary Care Provider SCOOTER, DR MICHAEL Camejo Admitting Unavailable NADERER, DR MICHAEL Camejo Attending Unavailable NADERER, DR MICHAEL Camejo Consulting Unavailable NADERER, DR MICHAEL Camejo Primary Care Unavailable EDWARD, SUMMER Attending Unavailable EDWARD, SUMMER Admitting Unavailable GRECHINDIANA ., PEDRO BAINS Consulting Unavailabl e NADERER, DR MICHAEL Camejo Primary Care Unavailable GLENN PACHECO Consulting Unavailable ORVILLE ., DR ALONSO Attending Unavailable ORVILLE ., DR ALONSO Admitting Unavailable ORVILLE ., DR ALONSO Consulting Unavailable NADERER, DR MICHAEL Camejo Primary Care Unavailable NADERER, DR MICHAEL Camejo Admitting Unavailable NADERER, DR MICHAEL Camejo Attending Unavailable NADERER, DR MICHAEL Camejo Consulting Unavailable NADERER, DR MICHAEL Camejo Primary Care Unavailable NADERER, DR MICHAEL Camejo Admitting Unavailable ROSS, IESHA ONEIL Primary Care Unavailable ZIEBER, DR CARMEN Aguilar Consulting Unavailable NADERER, DR MICHAEL Camejo Attending Unavailable NADERER, DR MICHAEL Camejo Consulting Unavailable CELESTE JACINTO Attending Unavailable ORVILLE, CELESTE Attending Unavailable ORVILLECELESTE SCHERER Attending Unavailable Medications Current Medications Medication Drug Class(es) Dates Sig (Normalized) Sig (Original) Aimovig SureClick (1 source) Start: 10-12-19 Aimovig SureClick SubCutaneous, qMonth, Refills(s) 0 Start Date: 10/11/18 Status: Ordered amoxicillin 875 mg / clavulanate 125 mg oral tablet (1 source) Penicillin-class Antibacterial Start: 08-09-19 End: 08-23-19 22 take 1 tablet by mouth every twelve hours Augmentin 875 mg oral tablet = 1 tab(s), Oral, q12hr, X 14 day(s), # 28 tab(s), Refills(s) 0, Pharmacy: [facility]/pharmacy #[id number], 168, cm, 08/08/21 14:35:00 EDT, Height/Length Dosing, 108, kg, 08/08/21 14:35:00 EDT, Weight Dosing Start Date: 08/08/21 Stop Date: 08/22/21 Status: Ordered FLUoxetine 10 mg oral tablet (1 source) Serotonin Reuptake Inhibitor Start: 10-12-19 19 take 10 mg by mouth once daily [...] current use of drug therapy; Translations: [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 Rasta Gatica Basophils/100 WBC (Bld) 0.4 % Normal 0.2-2.0 [facility] Comment on above: Performed By: #### C BC ####[facility] [address] [place] [address]Dr. Rasta Gatica EO # 0.2 103/ul Normal 0.0-0.7 [facility] Comment on above: Performed By: #### C BC ####[facility] [address] [place] [address]Dr. Rasta Gatica Eosinophils/100 WBC (Bld) 1.3 % Normal 0.9-7.0 [facility] Comment on above: Performed By: #### C BC ####[facility] [address] [place] [address]Dr. Rasta Gatica Erythrocyte distribution width (RBC) [Ratio] 12.7 % Normal 11.0-15.0 [facility] Comment on above: Performed By: #### C BC ####[facility] [address] [place] [address]Dr. Rasta Gatica Hematocrit (Bld) [Volume fraction] 40.3 % Normal 36.0-48.0 [facility] Comment on above: Performed By: #### C BC ####[facility] [address] [place] [id number]. Rasta Gatica Hemoglobin (Bld) [Mass/Vol] 13.1 g/dL Normal 12.0-16.0 [facility] Comment on above: Performed By: #### C BC ####[facility] [address] [place] [id number]. Rasta Gatica IG # 0.03 10e3/ul Normal 0.00-0.03 [facility] Comment on above: Performed By: #### C BC ####[facility] [address] [place] [address]Dr. Rasta Gatica IG % 0.3 % Normal 0.0-0.5 [facility] Comment on above: Performed By: #### C BC ####[facility] [address] [place], [place] [address]Dr. Rasta Gatica LYMPH # 2.9 103/ul Normal 1.2-3.8 [facility] Comment on above: Performed By: #### C BC ####[facility] [address] [place], [place] [address]Dr. Rasta Gatica Lymphocytes/100 WBC (Bld) 25.5 % Normal 20.5-60.0 [facility] Comment on above: Performed By: #### C BC ####[facility] [address] [place], [place] [address]Dr. Rasta Gatica MANUAL DIFF REQ NO Normal [facility] Comment on above: Performed By: #### C BC ####[facility] If[address] [place], [place] [address]Dr. Rasta Gatica MCH (RBC) [Entitic mass] 29.1 pg Normal 26.7-34.0 [facility] Comment on above: Performed By: #### C BC ####[facility] [address] [place], [place] [address]Dr. Rasta Gatica MCHC (RBC) [Mass/Vol] 32.5 g/dL Normal 29.9-35.2 [facility] Comment on above: Performed By: #### C BC ####[facility] [address] [place] [id number]. Rasta Gatica MCV (RBC) [Entitic vol] 89.6 fL Normal 81.0-99.0 [facility] Comment on above: Performed By: #### C BC ####[facility] [address] [place] [id number]. Rasta Gatica MONO # 0.8 103/ul Normal 0.3-0.8 [facility] Comment on above: Performed By: #### C BC ####[facility] [address] [place] [id number]. Rasta Gatica Monocytes/100 WBC (Bld) 7.2 % Normal 1.7-12.0 [facility] Comment on above: Performed By: #### C BC ####[facility] [address] [place], [place] [address]Dr. Rasta Gatica NEUT # 7.3 103/ul Critically high 1.4-6.5 [facility] Comment on above: Performed By: #### C BC ####[facility] Epfc[address] [place], [place] [address]Dr. Rasta Gatica Neutrophils/100 WBC (Bld) 65.3 % Normal 43.0-75.0 [facility] Comment on above: Performed By: #### C BC ####[facility] [address] [place] [id number]. Rasta Gatica Platelet mean volume (Bld) [Entitic vol] 10.7 fL Normal 9.5-13.5 [facility] Comment on above: Performed By: #### C BC ####[facility] [address] [place] [id number]. Rasta Gatica PLT 279 103/ul Normal 150-450 [facility] Comment on above: Performed By: #### C BC ####[facility] [address] [place], [place] [address]Dr. Rasta Gatica RBC 4.50 106/ul Normal 4.20-5.40 [facility] Comment on above: Performed By: #### C BC ####[facility] [address], [place] [address]JwDr. Rasta Gatica WBC 11.2 103/ul Critically high 4.0-11.0 [facility] Comment on above: Performed By: #### C BC ####[facility] [address] [place] [id number]. Rasta Gatica GLYCOHEMOGLOBIN A1Con 2022 ADA RECOMMENDATION SEE BELOW Normal [facility] Comment on above: Result Comment: ADA RECOMMENDED LIMIT 4.0 - 6.0 ADA THERAPEUTIC TARGET < 7.0 ACTION SUGGESTED > 7.0 Performed By: #### A 1C #### [facility] [address] [address] [address] Rasta Gatica Glucose [Mass/Vol] 103 mg/dL Normal [facility] Comment on above: Performed By: #### A 1C #### [facility] [address] [address] [address] Rasta Gatica HbA1c (Bld) [Mass fraction] 5.2 % Normal 4.5-6.2 [facility] Comment on above: Performed By: #### A 1C #### [facility] [address] [address] [address] Rasta Gatica LIPID PROFILEon 08-07-2022 CHOL-HDL RATIO NORM SEE BELOW Normal [facility] Comment on above: Result Comment: 3.3 - 4.4 LOW RISK 4.4 - 7.1 AVERAGE RISK 7.1 - 11.0 MODERATE RISK >11.0 HIGH RISK Performed By: #### L IPID, BMP, TSH, LIVER #### [facility] [address] [address] [address] Rasta Gatica Cholesterol [Mass/Vol] 234 mg/dL Critically high <=200 [facility] Comment on above: Performed By: #### L IPID, BMP, TSH, LIVER #### [facility] [address] [address] [address] Rasta Gatica Cholesterol in HDL [Mass/Vol] 67 mg/dL Critically high 40-60 [facility] Comment on above: Performed By: #### L IPID, BMP, TSH, LIVER #### [facility] [address] [address] [address] Rasta Gatica Cholesterol in LDL [Mass/Vol] 151.8 mg/dL Normal [facility] Comment on above: Performed By: #### L IPID, BMP, TSH, LIVER #### [facility] [address] [address] [address] Rasta Gatica Cholesterol.total/C holesterol in HDL [Mass ratio] 3.5 {ratio} Normal [facility] Comment on above: Performed By: #### L IPID, BMP, TSH, LIVER #### [facility] [address] [address] [address] Rasta Gatica HDL NORMAL > or = 60 mg/dl - LO W CARDIOVASCULAR RISK <40 mg/dl - HIGH CARDIOVASCULAR RISK Normal [facility] Comment on above: Performed By: #### L IPID, BMP, TSH, LIVER #### [facility] [address] [address] [address] Rasta Gatica LDL CALC NORMAL SEE BELOW Normal [facility] Comment on above: Result Comment: <100 mg/dl OPTIMAL 100 - 129 mg/dl NEAR OR ABOVE OPTIMAL 130 - 159 mg/dl BORDERLINE HIGH 160 - 189 mg/dl HIGH >190 mg/dl VERY HIGH Performed By: #### L IPID, BMP, TSH, LIVER #### [facility] [address] [address] [address] Rasta Gatica Triglyceride [Mass/Vol] 76 mg/dL Normal <=150 [facility] Comment on above: Performed By: #### L IPID, BMP, TSH, LIVER #### [facility] [address] [address] [address] Rasta Gatica VLDL CALC 15.2 mg/dL Normal [facility] Comment on above: Performed By: #### L IPID, BMP, TSH, LIVER #### [facility] [address] [address] [address] Rasta Gatica LIVER PROFILEon 08-07-2022 Albumin [Mass/Vol] 3.8 g/dL Normal 3.4-5.0 [facility] Comment on above: Performed By: #### L IPID, BMP, TSH, LIVER #### [facility] [address] [address] [address] Rasta Gatica Albumin/Globulin [Mass ratio] 1.0 {ratio} Normal [facility] Comment on above: Performed By: #### L IPID, BMP, TSH, LIVER #### [facility] [address] [address] [address] Rasta Gatica ALP [Catalytic activity/Vol] 98 U/L Normal 46-116 [facility] Comment on above: Performed By: #### L IPID, BMP, TSH, LIVER #### [facility] [address] [address] [address] Rasta Gatica ALT [Catalytic activity/Vol] 24 U/L Normal 14-59 [facility] Comment on above: Performed By: #### L IPID, BMP, TSH, LIVER #### [facility] [address] [place] [address] Dr. Rasta Gatica AST [Catalytic activity/Vol] 19 U/L Normal 15-37 [facility] Comment on above: Performed By: #### L IPID, BMP, TSH, LIVER #### [facility] [address] [address] [address] Rasta Gatica BILI, CONJUGATED 0.1 mg/dL Normal 0.0-0.2 [facility] Comment on above: Performed By: #### L IPID, BMP, TSH, LIVER #### [facility] [address] [address] [address] Rasta Gatica Bilirubin [Mass/Vol] 0.4 mg/dL Normal 0.2-1.0 [facility] Comment on above: Performed By: #### L IPID, BMP, TSH, LIVER #### [facility] [address] [address] [address] Rasta Gatica Globulin (S) [Mass/Vol] 3.8 g/dL Normal [facility] Comment on above: Performed By: #### L IPID, BMP, TSH, LIVER #### [facility] [address] [address] [address] Rasta Gatica Protein [Mass/Vol] 7.6 g/dL Normal 6.4-8.2 [facility] Comment on above: Performed By: #### L IPID, BMP, TSH, LIVER #### [facility] [address] [place] [address] Dr. Rasta Gatica PROF CHEM 8 (BAS METB)on Anion gap [Moles/Vol] 9.6 mmol/L Normal [facility] Comment on above: Performed By: #### L IPID, BMP, TSH, LIVER #### [facility] [address] [place] [address] Dr. Rasta Gatica Calcium [Mass/Vol] 9.8 mg/dL Normal 8.5-10.1 [facility] Comment on above: Performed By: #### L IPID, BMP, TSH, LIVER #### [facility] [address] [place] [address] Dr. Rasta Gatica Chloride [Moles/Vol] 106 mmol/L Normal 98-107 [facility] Comment on above: Performed By: #### L IPID, BMP, TSH, LIVER #### [facility] [address] [place] [address] Dr. Rasta Gatica CO2 [Moles/Vol] 27.0 mmol/L Normal 21.0-32.0 [facility] Comment on above: Performed By: #### L IPID, BMP, TSH, LIVER #### [facility] [address] [place] [address] Dr. Rasta Gatica Creatinine [Mass/Vol] 0.66 mg/dL Normal 0.55-1.02 [facility] Comment on above: Performed By: #### L IPID, BMP, TSH, LIVER #### [facility] [address] [place] [address] Dr. Rasta Gatica EGFR-AF PUERTO RICAN >60 Normal >=60 [facility] Comment on above: Performed By: #### L IPID, BMP, TSH, LIVER #### [facility] [address] [place] [address] Dr. Rasta Gatica EGFR-NON AF PUERTO RICAN >60 Normal >=60 [facility] Comment on above: Performed By: #### L IPID, BMP, TSH, LIVER #### [facility] [address] [address] [address] Rasta Gatica Glucose [Mass/Vol] 88 mg/dL Normal 74-106 [facility] Comment on above: Performed By: #### L IPID, BMP, TSH, LIVER #### [facility] [address] [place] [address] Dr. Rasta Gatica Potassium [Moles/Vol] 4.6 mmol/L Normal 3.5-5.1 [facility] Comment on above: Performed By: #### L IPID, BMP, TSH, LIVER #### [facility] [address] [place] [address] Dr. Rasta Gatica Sodium [Moles/Vol] 138 mmol/L Normal 136-145 [facility] Comment on above: Performed By: #### L IPID, BMP, TSH, LIVER #### [facility] [address] [place] [address] Dr. Rasta Gatica Urea nitrogen [Mass/Vol] 10.0 mg/dL Normal 7.0-18.0 [facility] Comment on above: Performed By: #### L IPID, BMP, TSH, LIVER #### [facility] [address] [place] [address] Dr. Rasta Gatica Urea nitrogen/Creatinine [Mass ratio] 15.2 mg/mg Normal [facility] Comment on above: Performed By: #### L IPID, BMP, TSH, LIVER #### [facility] [address] [place] [address] Dr. Rasta Gatica TSHon 08-07-2022 TSH 1.521 uIU/mL Normal 0.358-3.740 [facility] Comment on above: Performed By: #### L IPID, BMP, TSH, LIVER #### [facility] [address] [place] [address] HEAD WO CONon [...] authenticated by: GLENN PACHECO Date: 2022-06-14 20:18 [facility] PAP ACOG PANEL 2: 22 to 30on 02-08-2022 . . Normal [facility] Comment on above: Performed By: #### 4 [id number] #### [facility] [address] [place] [address] Dr. Rasta Gatica Age Gdln ACOG Testing 22- [facility] Comment on above: Performed By: #### 4 [id number] #### [facility] [address] [place] [address] Dr. Rasta Gatica DIAGNOSIS: Comment [facility] Comment on above: Result Comment: NEGA TIVE FOR INTRAEPITHELIAL LESION OR MALIGNANCY. Performed By: #### 4 [id number] #### [facility] [address] [place] [address] Dr. Rasta Gatica Methodology: Comment [facility] Comment on above: Result Comment: This liquid based ThinPrep(R) pap test was screened with the use of an image guided system. Performed By: #### 4 [id number] #### [facility] [address] [place] [address] Dr. Rasta Gatica Note: Comment [facility] Comment on above: Result Comment: The Pap smear is a screening test designed to aid in the detection of premalignant and malignant conditions of the uterine cervix. It is not a diagnostic procedure and should not be used as the sole means of detecting cervical cancer. Both false-positive and false-negative reports do occur. . Performed By: #### 4 [id number] #### [facility] [address] [place] [address] Dr. Rasta Gatica Performed by: Comment Normal [facility] Comment on above: Result Comment: Darline Terry, Customer Service Dispatcher (ASCP) Performed By: #### 4 [id number] #### [facility] [address] [place] [address] Dr. Rasta Gatica Reflex Criteria: Comment Normal [facility] Comment on above: Result Comment: The HPV DNA reflex criteria were not met with this specimen result therefore, no HPV testing was performed. . Performed By: #### 4 [id number] #### [facility] [address] [place] [address] Dr. Rasta Gatica Specimen adequacy: Comment Normal [facility] Comment on above: Result Comment: Sati sfactory for evaluation. Endocervical and/or squamous metaplastic cells (endocervical component) are present. Performed By: #### 4 [id number] #### [facility] [address] [place] [address] Dr. Rasta Gatica CBC AUTO DIFFon 02-02-2022 BASO # 0.0 103/ul Normal 0.0-0.1 [facility] Comment on above: Performed By: #### C BC ####[facility] [address] [place] [address]DrHany Gatica Basophils/100 WBC (Bld) 0.4 % Normal 0.2-2.0 [facility] Comment on above: Performed By: #### C BC ####[facility] [address] [place], [place] [address]DrHany Gatica EO # 0.1 103/ul Normal 0.0-0.7 [facility] Comment on above: Performed By: #### C BC ####[facility] [address] [place] [address]DrHany Gatica Eosinophils/100 WBC (Bld) 1.3 % Normal 0.9-7.0 [facility] Comment on above: Performed By: #### C BC ####[facility] [address] [place] [address]DrHany Gatica Erythrocyte distribution width (RBC) [Ratio] 13.2 % Normal 11.0-15.0 [facility] Comment on above: Performed By: #### C BC ####[facility] [address] [place] [address]Dr. Rasta Gatica Hematocrit (Bld) [Volume fraction] 40.8 % Normal 36.0-48.0 [facility] Comment on above: Performed By: #### C BC ####[facility] [address] [place] [address]Dr. Rasta Gatica Hemoglobin (Bld) [Mass/Vol] 13.2 g/dL Normal 12.0-16.0 [facility] Comment on above: Performed By: #### C BC ####[facility] [address] [place], [place] [address]Dr. Rasta Gatica IG # 0.03 10e3/ul Normal 0.00-0.03 [facility] Comment on above: Performed By: #### C BC ####[facility] [address] [place], [place] [address]Dr. Rasta Gatica IG % 0.3 % Normal 0.0-0.5 [facility] Comment on above: Performed By: #### C BC ####[facility] [address] [place], [place] [address]Dr. Rasta Gatica LYMPH # 2.8 103/ul Normal 1.2-3.8 [facility] Comment on above: Performed By: #### C BC ####[facility] [address] [place], [place] [address]Dr. Rasta Gatica Lymphocytes/100 WBC (Bld) 29.1 % Normal 20.5-60.0 [facility] Comment on above: Performed By: #### C BC ####[facility] [address] [place], [place] [address]Dr. Rasta Gatica MANUAL DIFF REQ NO Normal [facility] Comment on above: Performed By: #### C BC ####[facility] [address]me[address] [place], [place] [address]Dr. Rasta Gatica MCH (RBC) [Entitic mass] 29.1 pg Normal 26.7-34.0 [facility] Comment on above: Performed By: #### C BC ####[facility] [address] [place] [id number]. Rasta Gatica MCHC (RBC) [Mass/Vol] 32.4 g/dL Normal 29.9-35.2 [facility] Comment on above: Performed By: #### C BC ####[facility] [address] [place] [id number]. Rasta Gatica MCV (RBC) [Entitic vol] 90.1 fL Normal 81.0-99.0 [facility] Comment on above: Performed By: #### C BC ####[facility] [address] [place], [place] [address]Dr. Rasta Gatica MONO # 0.6 103/ul Normal 0.3-0.8 [facility] Comment on above: Performed By: #### C BC ####[facility] [address] [place], [place] [address]Dr. Karrieroopa Gatica Monocytes/100 WBC (Bld) 6.6 % Normal 1.7-12.0 [facility] Comment on above: Performed By: #### C BC ####[facility] [address] [place], [place] [address]Dr. Rasta Gatica NEUT # 6.0 103/ul Normal 1.4-6.5 [facility] Comment on above: Performed By: #### C BC ####[facility] [address] [place], [place] [address]Dr. Rasta En Neutrophils/100 WBC (Bld) 62.3 % Normal 43.0-75.0 [facility] Comment on above: Performed By: #### C BC ####[facility] [address] [place], [place] [address]Dr. Rasta Gatica Platelet mean volume (Bld) [Entitic vol] 11.4 fL Normal 9.5-13.5 [facility] Comment on above: Performed By: #### C BC ####[facility] [address] [place], [place] [address]Dr. Rasta En PLT 264 103/ul Normal 150-450 [facility] Comment on above: Performed By: #### C BC ####[facility] [address] [place] [id number]. Rasta Gatica RBC 4.53 106/ul Normal 4.20-5.40 [facility] Comment on above: Performed By: #### C BC ####[facility] [address] [place], [place] [address]TnHany Gatica WBC 9.7 103/ul Normal 4.0-11.0 [facility] Comment on above: Performed By: #### C BC ####[facility] [address] [place] [id number] Gatica GLYCOHEMOGLOBIN A1Con 2021 ADA RECOMMENDATION SEE BELOW Normal [facility] Comment on above: Result Comment: ADA RECOMMENDED LIMIT 4.0 - 6.0 ADA THERAPEUTIC TARGET < 7.0 ACTION SUGGESTED > 7.0 Performed By: #### A 1C #### [facility] [address] [address] [address] Rasta Gatica Glucose [Mass/Vol] 120 mg/dL Normal [facility] Comment on above: Performed By: #### A 1C #### [facility] [address] [address] [address] Rasta Gatica HbA1c (Bld) [Mass fraction] 5.8 % Normal 4.5-6.2 [facility] Comment on above: Performed By: #### A 1C #### [facility] [address] [address] [address] Rasta Gatica LIPID PROFILEon 02-02-2022 CHOL-HDL RATIO NORM SEE BELOW Normal [facility] Comment on above: Result Comment: 3.3 - 4.4 LOW RISK 4.4 - 7.1 AVERAGE RISK 7.1 - 11.0 MODERATE RISK >11.0 HIGH RISK Performed By: #### L IVER, TSH, BMP, LIPID ####[facility] [address] [id number]. Rasta Gatica Cholesterol [Mass/Vol] 210 mg/dL Critically high <=200 [facility] Comment on above: Performed By: #### L IVER, TSH, BMP, LIPID ####[facility] [address] [id number]. Rasta Gatica Cholesterol in HDL [Mass/Vol] 61 mg/dL Critically high 40-60 [facility] Comment on above: Performed By: #### L IVER, TSH, BMP, LIPID ####[facility] [address] [id number]. Rasta Gatica Cholesterol in LDL [Mass/Vol] 114.4 mg/dL Normal [facility] Comment on above: Performed By: #### L IVER, TSH, BMP, LIPID ####[facility] [address] [id number]. Rasta Gatica Cholesterol.total/C holesterol in HDL [Mass ratio] 3.4 {ratio} Normal [facility] Comment on above: Performed By: #### L IVER, TSH, BMP, LIPID ####[facility] [address] [address]Dr. Karrieroopa Gatica HDL NORMAL > or = 60 mg/dl - LO W CARDIOVASCULAR RISK <40 mg/dl - HIGH CARDIOVASCULAR RISK Normal [facility] Comment on above: Performed By: #### L IVER, TSH, BMP, LIPID ####[facility] [address] [address]Dr. Rasta Gatica LDL CALC NORMAL SEE BELOW Normal [facility] Comment on above: Result Comment: <100 mg/dl OPTIMAL 100 - 129 mg/dl NEAR OR ABOVE OPTIMAL 130 - 159 mg/dl BORDERLINE HIGH 160 - 189 mg/dl HIGH >190 mg/dl VERY HIGH Performed By: #### L IVER, TSH, BMP, LIPID ####[facility] [address] [id number]. Karrieroopa Gatica Triglyceride [Mass/Vol] 173 mg/dL Critically high <=150 [facility] Comment on above: Performed By: #### L IVER, TSH, BMP, LIPID ####[facility] [address] [id number]. Rasta Gatica VLDL CALC 34.6 mg/dL Normal [facility] Comment on above: Performed By: #### L IVER, TSH, BMP, LIPID ####[facility] [address] [address]Dr. Rasta Gatica LIVER PROFILEon 02-02-2022 Albumin [Mass/Vol] 3.5 g/dL Normal 3.4-5.0 [facility] Comment on above: Performed By: #### L IVER, TSH, BMP, LIPID ####[facility] [address] [address]Dr. Rasta Gatica Albumin/Globulin [Mass ratio] 1.1 {ratio} Normal [facility] Comment on above: Performed By: #### L IVER, TSH, BMP, LIPID ####[facility] [address] [address]Dr. Rasta Gatica ALP [Catalytic activity/Vol] 71 U/L Normal 46-116 [facility] Comment on above: Performed By: #### L IVER, TSH, BMP, LIPID ####[facility] [address] [place], [place] [address]Dr. Rasta Gatica ALT [Catalytic activity/Vol] 15 U/L Normal 14-59 [facility] Comment on above: Performed By: #### L IVER, TSH, BMP, LIPID ####[facility] [address] [place], [place] [address]Dr. Rasta Gatica AST [Catalytic activity/Vol] 8 U/L Critically low 15-37 [facility] Comment on above: Performed By: #### L IVER, TSH, BMP, LIPID ####[facility] [address] [place], [place] [address]Dr. Rasta Gatica BILI, CONJUGATED <0.1 Normal 0.0-0.2 [facility] Comment on above: Performed By: #### L IVER, TSH, BMP, LIPID ####[facility] [address] [place], [place] [address]Dr. Rasta Gatica Bilirubin [Mass/Vol] 0.1 mg/dL Critically low 0.2-1.0 [facility] Comment on above: Performed By: #### L IVER, TSH, BMP, LIPID ####[facility] [address] [place], [place] [address]Dr. Rasta Gatica Globulin (S) [Mass/Vol] 3.3 g/dL Normal [facility] Comment on above: Performed By: #### L IVER, TSH, BMP, LIPID ####[facility] [address] [address]Dr. Rasta Gatica Protein [Mass/Vol] 6.8 g/dL Normal 6.4-8.2 [facility] Comment on above: Performed By: #### L IVER, TSH, BMP, LIPID ####[facility] [address] [address]Dr. Rasta Gatica PROF CHEM 8 (BAS METB)on Anion gap [Moles/Vol] 10.6 mmol/L Normal [facility] Comment on above: Performed By: #### L IVER, TSH, BMP, LIPID ####[facility] [address] [address]Dr. Rasta Gatica Calcium [Mass/Vol] 9.2 mg/dL Normal 8.5-10.1 [facility] Comment on above: Performed By: #### L IVER, TSH, BMP, LIPID ####[facility] [address] [place], [place] [address]Dr. Rasta Gatica Chloride [Moles/Vol] 106 mmol/L Normal 98-107 [facility] Comment on above: Performed By: #### L IVER, TSH, BMP, LIPID ####[facility] [address] [address]Dr. Rasta Gatica CO2 [Moles/Vol] 29.3 mmol/L Normal 21.0-32.0 [facility] Comment on above: Performed By: #### L IVER, TSH, BMP, LIPID ####[facility] [address] [place], [place] [address]Dr. Rasta Gatica Creatinine [Mass/Vol] 0.63 mg/dL Normal 0.55-1.02 [facility] Comment on above: Performed By: #### L IVER, TSH, BMP, LIPID ####[facility] [address] [place], [place] [address]Dr. Rasta Gatica EGFR-AF PUERTO RICAN >60 Normal >=60 [facility] Comment on above: Performed By: #### L IVER, TSH, BMP, LIPID ####[facility] [address] [id number]. Rasta Gatica EGFR-NON AF PUERTO RICAN >60 Normal >=60 [facility] Comment on above: Performed By: #### L IVER, TSH, BMP, LIPID ####[facility] [address] [id number]. Rasta Gatica Glucose [Mass/Vol] 82 mg/dL Normal 74-106 [facility] Comment on above: Performed By: #### L IVER, TSH, BMP, LIPID ####[facility] [address] [address]Dr. Rasta Gatica Potassium [Moles/Vol] 3.9 mmol/L Normal 3.5-5.1 [facility] Comment on above: Performed By: #### L IVER, TSH, BMP, LIPID ####[facility] [address] [address]Dr. Rasta Gatica Sodium [Moles/Vol] 142 mmol/L Normal 136-145 [facility] Comment on above: Performed By: #### L IVER, TSH, BMP, LIPID ####[facility] [address] [address]Dr. Rasta Gatica Urea nitrogen [Mass/Vol] 11.0 mg/dL Normal 7.0-18.0 [facility] Comment on above: Performed By: #### L IVER, TSH, BMP, LIPID ####[facility] [address] [address]Dr. Rasta Gatica Urea nitrogen/Creatinine [Mass ratio] 17.5 mg/mg Normal [facility] Comment on above: Performed By: #### L IVER, TSH, BMP, LIPID ####[facility] [address] [address]Dr. Rasta Gatica TSHon 02-02-2022 TSH 1.214 uIU/mL Normal 0.358-3.740 [facility] Comment on above: Performed By: #### L IVER, TSH, BMP, LIPID ####[facility] [address], [place] [address]Dr. Rasta Gatica VITAMIN D 25 OHon 02-02-2022 VIT D 25-OH 28.2 ng/mL Normal [facility] Comment on above: Performed By: #### V ITAD #### [facility] [address] [place], [place] [address] Dr. Rasta Gatica VIT D RANGES SEE BELOW Normal [facility] Comment on above: Result Comment: <20 ng/mL Vit D deficient 20 - <30 ng/mL Vit D insufficient 30 - 100 ng/mL Vit D sufficient >100 ng/mL Potential Toxicity Performed By: #### V ITAD #### [facility] [address] [place], [place] [address] Dr. Rasta Gatica MRI Hand w/o Righton [...] by Nic Duncan on 09/12/2021 1107 Normal [facility] ED Note-Physicianon 08-12-19 22 ED Note-Physician Basic [...] day(s), # 28 tab(s), Refills(s) 0, Pharmacy: [facility]/pharmacy #[id number], 168, cm, 08/08/21 14:35:00 [...] or concerns. Medicat (more content not included)... [facility] Comment on above: Result Comment: Elec tronically Signed By: Isi Stoll PA-C\.br\Date and Time Signed: 08/08/21 18:06 EDT\.br\Electronically Co-Signed By: Sourav Stinson DO\.br\Date and Time Co-Signed: 08/11/21 07:27 EDT Animal Bite Investigationon 08-08-2021 Animal Bite Investigation [id number]# 1.00CD:127 [facility] Coding Summary.on 08-08-2021 Coding Summary. CD:[id number] G h0bWw+PGhlYWQ+QN6NTSN qF86rxMOelK8IC8gXAL8H VGQIUYHXEP3TEZ0gbIW4Z FwvQ8VyopGy JidpfMJuHT14VLn9SMN6c FdnWAisaB7ctTPjK0w4Jt WwFJ15yD63VRopHPRzWdN 3LjZpbjsgbWFy J6mzBkUesPCnZlc+PHRhY mxlIHdpZHRoPScxMDAlJy PjvGzjMA6fMu8qKGYcPTY vbGxhcHNlOiBj r0cmNXUcOThrBG4kqDqlV 4YwsLI0CZMvf0p6Bg56dW I+STCjOSW4cVwsSEcpq29 3AiKme8lsMRH5 uOHmFJkgTFY7A28ki0K0Z VHiJMOdRYB3kIG9eU6tiC hhtrvcW5EymGVlKqX8PEC 8cEGjfS8coFjc wzlupC2nYzf+J54VTB3UV VGTNY8CKte7E5UwWbsceF I+JL11WZWiFH38tWXhkBX us9neeKk9MyJo ODCuSAI5rRixKCqvl0RmD WIxZ20ebCGzy6D4WTWgdU bfeROrAwEatCB5iS1hCPx fbbjvl5zwmlpf Gcems7qqtk37jG64F09nM XocLKQcMQX5KEBbWHJpxZ qmod8itH9fNh1+AKisz9e aw1fwnZp1QlUq NMZvioCspWfbYSZ9n8OjO y22L3McuPgpq4EeVqs9lw 15wKEsi1F1pJP5ZXoyDMA bpC1yUDfjXzM0 POEaWqQwwQ03fXEvODiaV q0fzUnzyGczSO8tWVNjft oqEJEmzY6rDKVvyZConJx eKM5tDCZjgzmn c004UaJoXBH0NAMghZFbG 7ZhgL0pIhKvJWPtSEVaI2 YerESuGWvhD026ZKkoEbF 3VEKmuoCrP6Gv IXXnoPgfRuU8v6W5Uc8Nu 5OklheaVMC3LAldCYV2Zj GyZkTmSlW1M1FwSxl2BRN prCpmXL5jC3Rx TEItkqhfuovmbOB3FOPlD MPmtS73yNYaYUvvZf7cu0 A1s254ASBhNVCrlM97Oj1 udDogMTBwdCBU sA0tofyly6krpqugRaKdA HDlYHe5QCo2EBRtkBhgDh WhADF2YoN2YVR3aBKvwR4 osLuvncrttM0w Oyc+O01lpE8mNFD2IPC7v uqnZVFbrvXtAI79QB18U3 RyPjwvdGFibGU+PGRpdiB stCeiWT0nKbFr f7rpu0AsUBiuS1EoOMIhK KpjQia7NDEeUZS2dYR3uX 8kLIBhVYpqr5P9xOB3B6Y wmqLjyo7hh9ni PUBzANpsU36fyROku5W1X CLelAZ7RLJqjMaoTcBjvV 93Oyc+CXPdlBlzq5FdEzl dj5oou0umnGz4 DtNkMGNeqhDcmGzhCOL6n 6LkNj60U95hQRsaTHGfZN LcAQTkJVMflLlkok6kfW1 wIi8+PGNvbCB3 eMK0kB1aWOBjNkT7SIlyY 285JwYvzKTjCqncd5wtt8 ehjAt6TqJyEAOxhdDzvYt bCOS5k7LhWy03 X65sNIneSFQfOFObOLRnB BPzwJrlks2egY1cCx4+PC 7hw1oarv32wC61uCI+PHR hEZC9sNcsQKln ZRBrdQ0fPDnnBbB0QCAaO kPfxS86fMVgDEarSa9lzI pibTkdGT4eBKLwjhmdy30 0KnLyz2cxVUTr aMNiKRenMMB1J48lu5K8A DOxVYXzUMC6aWU4hY0uuR lnbjogbGVmdDsgdmVydGl nQNejDBvrT989 IHRvcDsnPlBhdGllbnQgT pNvHDn8S6YvWuh1YCEraN jqMT3ouCGrXShrPm3mcOz rxQfuQL8rVULq iqrum774EkGkr2tiNUBir YEuRFgoFMQ1T43ny5H1SK VyLBRjOGE1wLE2tY9ddQt nbjogbGVmdDsg zoYwcGlvRMjzSVuvA008M HRvcDsnPkJpcnRoIERhdG W2ZO71ZL71sGBkv2Q2bDS 4R2WjZUNkhphc crlukMS1OBEaFUMmpT84U t4bpPwvHq1iQOUeVBU2EZ JvhUTcK9TolM8eHfMxSJM sLXBtX6DewZQs ISczL384YSxrZsZ7DRWtb vMwT9VtXRMmpRpgSfD6r4 P6So1NZ2C3SX10IZ55yNM ap8B0aIO9E2Vc VTBbeqfhouzcvGJ5UFGaX KRplC75Wu4ptXssPy0bAF PpGYS0IXQmaPJqY0OqxJ0 yOiAjMDAwMDAw X4LbmSWwUWdmH025VQmrQ oK8RTTameZnO2NaFKLgwT anEcI9k5K7Ve5OPQs5QP2 9SP04cTWxx3R3 eVL7G2AgBKFlmmcrjbnwz NV1RMXpMUWhvU33Um2zuW cuUz7rIEQdHUT6SOVvcCE dX4SufA1uSySe DBQfUBIuS5UjyTQcJJhjZ 484ACcrEzD6UFFkpiDiH4 KpUDDfhPwyNcO2f1K9Gl3 EQAHmPB53YWP7 gZG4YO98YM76V8WdUgghz GFibGU+PHRhYmxlIHdpZH RoPScxMDAlJyBzdHlsZT0 zOt2kUBKbOETr cUygiZTxDyLyc0ihTITsC IceLN5dyWmnR4KeqRX5WE Cpc6i0Df86L28xH4KbqFH +TFIrqDZ5cYR7 wM8zNsJtFhQ1TFydO031U bUnvBFmFywkt4fyz4kqqT h8HlS6DUPpgpZqaWheLVF 1o1FbQs47C31n IHdpZHRoPSIxNSUiIHZhb Btnaf6flA0rNc2+PGNvbC G4mTM4dB4tMiJwLuZ8XGv qU034ZrLvpHGe Qltrd4sje8efzZz8EwZqV GFaouYntZgdBEI5f7GzDc 25Y0BkvPjiv2ErUqd3tr1 9cHFky5T0gZD5 Q9VgMHHivlikzNMwfXbxJ E1xXYWqiuyoSQUruM3pYO VqF0x2KcAxJcU6IFptQ1V xheJ5CMIszHNc PEksDRJ2P74qd2M4QESiB OBiQEL7oFJ6aH0xsHwdpj ogbGVmdDsgdmVydGljYWw aVNwyN515ZPGn fDfaKDJqaM6nWZDhmBSaf MylHG3nEJNqhtjcWgPJKX QQJSFHPTcDXKDKJP11BA2 0iJZsy1J5rBN7 L1KwBNVkbbsxlqnhyEJ8E KVeXCPzkA59vUBdMViuUd 5kd8B6d518OYAbSTBgeK1 9Mb2dcIguPPOa pRWPdU3saexra6aomhpgE zFbMZJmVGy7EMa5DVAanL eiAkJuCYD3PjA7TIR8jUR hiM9wiLaofoan gN9oZgy+DGXqFapcVJn4K jwvdGQ+RHRmTQW1wPfvDN daGGVxwG9wDEXlW5a5SeP zRpQ7LLvyP8Hs KYAiycmcXz13sP3eNbHkM mT3PQcqZ6YuqfO9EFTmcI GhSDdzXRH4G76fd5F2LJI tPIZrVCB6tXO2 jF5fwUfvbdiduHAsjRijw rOpyUtlISlwZDxxJ386LS UigXtqJhW6AJflQTRbGH1 6QS63nOOsv4F2 iXD1Q8JpXNTvnqdjulrvi JN4PYVjIOIbvK76oQIxGT amCs4ta6A1e625MROxWER ipX49Na1ccCne LIJyyCRVgM6bfckfu1ziq vipPkWfNEPdQIc1CWs9QK GuqKbnRyNaSFZ2XxJ6NQQ 9rUVitM8wsOui pvfczB7wHps+RmVtYWxlP M33AT58vUYsd2I6iYG5W3 IcKVUymxdahabxlIE5GKH mKYXxnG82qOUq SWcrYu0ui7I2v571SJAeI SOizJ09Uv4gkMguFCVsgE SYfK4scdmqc4cjhaahVvA eLHSxFEa4MGa1 TXTltQwaLvZwCWE1IqK4R YD9cINynT1riCqqjidfsJ 9wOyc+LJ8tkbbfpoX8QK4 0VS04S8VeGgqd dGFibGU+PHRhYmxlIHdpZ HRoPScxMDAlJyBzdHlsZT 4sSj4lNRHzQBWagSuyaJA zYlKfb3flJKNu MJgkVU3nrRghY2CvbTO3U JFcz9r5Pw76R38hT0XvkW A+ZUPshQS8cWL4vK6rDgV hCfG9SNuxP994 SsGryKJcApzym1sve1nbe Af0FxLvUNLxczCgbZzuTG P1s7HwFt04Z17jEZcqAEC oPSIyMCUiIHZh pFaeqw8bmI6tKg2+PGNvb RA1qTB7rQ5iHiIqHjQ2UB woG736IrXxoBZoDqvzV96 nH9QvxRC+PHRy Lai5FETvfCxxYT0vuGIfE MqvTc1iRCJ3KoHyRiWsFZ umC5NlFQUdunbofwowdEX 3VHUtTTKuxE48 Sj4toGkxXd5vEWIjXLM8D FCxlBAsC3RhyV4iNzCjAX NrSHYkF7DcfMQnGEmdU34 3FQtjVqT9ASCt vtFjP6TeCZEcnPebKhA8m 7K1De0AmBukhOYyFG6xQx XaTGf6T1IfLjt9KKEieVx yME8snKReGHxn Da3yxYscpQgzJI4hBZMlr hizt324FyEli6zmSRTfnN GuIRdwYLC2P16fq1V9FLR tDTUsRRQ2uCW1 yC7iuCocqrcgiPRfvOxna zGtzMjvXCzbEFuvR522CH TsrFyqFtEDSst6X0PbQpf 8MXPqxLwqTI2w wWVjGVjkIx4zeVvuhXwtD L2uTWDwckzqd873XwSce5 liRAIspPLjSLfzZHO6Z37 nl0B8WPRvKTVr IKD1hTA9nU3ucYftwhglv GVmdDsgdmVydGljYWwtYW msI150NBHzzLfwWa2KNsv 2B1LfPno4ZHBf yCziTD5jvBOeIBrdZz6hd CugvDvwXA6yUTXoicdxt8 62BhKwi0toEQObxWOpBVh cLCO0B98am5V0 QFNySSBeVXV1mBK8rO1fe GlnbjogbGVmdDsgdmVydG pnHEwjYFxhV702KSBntXc nPlBheWVyOjwv dGQ+VL64qc58S7IxQumuI om5PEGsFDP0sBE1pX2nGZ ReZHoaj4D6gRL0F8YlggC pty6hx1evSSOl ZTog (more content not included)... Normal [facility] Consent for Treatmenton Consent for Treatment [id number]#1 .00CD:127 Normal [facility] Discharge Instructionson Discharge Instructions [id number]# 1.00CD:127 [facility] ED Clinical Summaryon 2021 ED Clinical Summary [place] [id number] ED Clinical Summary Person Information Name: BROOKLYNN GTZ/[facility] Age: 26 Years : 1995 Sex: Female Language: Jordanian PCP: MICHAEL HELMS MD Marital Status: Phone: [phone] Visit Id: Visit Reason: Dog bite: hand; [...] 15:44:14 08/08/2021 15:44:14 08/08/2021 15:44:14 ADDR[address]: [id number] [facility] [id number] PHYS DOC NOTES: MEDICAL INFORMATION: Prescriptions Given: New Medications [id number], [address], [place] [id number], [phone] amoxicillin-clavulana te (Augmentin 875 mg oral tablet) [...] PATIENT EDUCATION INFORMATION: Instructions: Animal Bite, Adult, Orhm-ga-Cona Follow up: With: Address: When: MICHAEL HELMS [address], [place] [id number] Business (1) In 3 days 08/11/2021 DIAGNOSIS: 1:Dog bite of middle finger; Bitten by dog, initial encounter Normal [facility] ED Patient Education Noteon 08-08-2021 ED Patient [...] cannot use 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 ? Change your bandage as told by [...] bad smell. Medicines ? Take or apply wxym-szy-mqgwpwo and prescription medicines only as told by [...] Reviewed: 10/03/2017 Elsevier Patient Education ? 2019 IM5. Normal [facility] ED Patient Summaryon 022 ED Patient Summary [place] [id number] Patient Discharge Instructions Person Information Name: BROOKLYNN GTZ Age: 26 Years Arrival Date: 08/08/2021 14:29:26 Discharge Diagnosis: 1:Dog bite of middle finger; Bitten by dog, initial encounter Primary Care Physician: MICHAEL HELMS MD Provider Information Primary Provider: Sourav Stinson DO Advanced Oral Therapist:None The exam and treatment you received in the Emergency Department were for an urgent problem and are not intended as complete care. It is important that you follow up with a doctor, nurse practitioner, or physician?s custody assistant for ongoing care. If your symptoms [...] Address: When: MICHAEL HELMS [address] [place], [place] [id number] Business (1) In 3 days 08/11/2021 In the event that this physician does not participate in your insurance network, please consult with your insurance company to find a nearby participating provider. Patient Education Materials: Animal Bite, Adult, Vrlg-fc-Lzeo A MESSAGE TO ALL PATIENTS REGARDING OPIOIDS PRESCRIPTION OPIOIDS: WHAT YOU NEED TO KNOW Prescription opioids can be used to help relieve ctsnjcvq-zv-zyhuaq pain and are often prescribed following a [...] be struggling with addiction, tell your health care provider and ask for guidance or call [facility]?S National Helpline at [phone] (more content not included)... [facility] Coding Summary.on 02-24-2021 Coding Summary. CD:[id number] G h0bWw+PGhlYWQ+EW9USNK jA87qeZDtfW3KF0pSTX9L TLLRHHJLVT6TCS6ypGP7B ZtfI4MolqHg XtdspXHuSY70PKq9NLB8n AakYNtmoW1umPKtY3z9Gz HjMK66wU34MWtmIIHoZmG 3LjZpbjsgbWFy K2xrJqTmnNJkFzp+PHRhY mxlIHdpZHRoPScxMDAlJy RqaMpgQM4oYo2pMTKsWOG vbGxhcHNlOiBj z1ndVDKkLOsjES1tdTfgO 6UlbIK6BNJun6n7Kp65pI I+GNGzPKH2cQahFFugn73 7CsMcu4rvAVH6 lFRiQQvzSPU7L19ts0F5P HPfCCTlIUK3sGE3sH9jvF ueruywP5ZlpZMdTtU8MKH 3fNSlmB5fkMmy tdpjuN7gXdm+N71EBU9AD ABTNY1ZJit4W7XhHfmkjR I+QM35XEBxNJ65hDZecWJ ul9afrPy7AjPg WCArZVP3fOfvJHpcy8MtM SWnR08wlODjr5D2UGQgdK sanZNsLxJyhBU8kD1oVEa zgzlxu4btrrgd Twdix3dfss57pK26X94aO KvlRQBcWEU7ICAmKEMpbF dayd6yiF0rQq0+VZcwo0s hv5rcfDq9ZtEk OQVfzbAcrKxxBEK0c9PrF a41X7AlrGjiu9LjWjr4mj 06dRRib6R8oNC7VKwfGFS hwO6tXWbaAkP1 RYSrSgSxoF00wMOiIHbdS m9yvLspkPtfQT1lMEEehj wqRNNsoG8nJXWlhSUrcYz uFL3kGKQzbwnc l149VtMoLDI4WTMnhPNaU 6NlrH7tXqTsCFMiKRJaH8 SswKQaYPdnX065CQlsKaZ 2RJEnktAuS3Nb DCBasGduAwK8p3E5Fu1Cz 6VgnqnoPHJ5UUgmXJRbWo X9JlKxXrE8B1SuAym0OAM wcKrfZN1iU6Yb UFItkljxcuyzjVS0KZMxZ BEojL78lBIaCGtcKb3oy7 P9n998JZNxDKWyuY38Sx3 udDogMTBwdCBU cZ0fqnakc0dluklrBsXvK DNzACe0BWr9LXReiUpwLk OcCZV2QlM3DZH1lYTgcG9 qbTtdmehfeE3q Oyc+V94njZ2bSXT1GCN2r sgpSULxemXtTY75OO58N8 RyPjwvdGFibGU+PGRpdiB cgWbrPT9pOaTz r5rdn6ZuJNtvR2QqUCShC CocHfi0GQIhQPX1rNO7dP 3iIUHtQBikv8I5wUR2C7I qbzUkxj2ne8ai RVXbMNzgM07dnTWxl8N5L YSdxOK7TRWcsZsaInEpgZ 93Oyc+JDXgiRlgu4WtXmj gw0mia1bahQe0 HoYeUSJlxiUvlJtsMPJ5c 9WaCn81A10eWCkxJXFaLJ MuKCOpYFKacNszhm0rdC2 wIi8+PGNvbCB3 zLH1hS6dVZPeQrI5RGavK 918XbFejESlVvpuw8apf5 ewvXz3EuRpFBQzwkFwoVd rJNB6x1ZpVu23 Z23yKVtaDYVmEEHfRCUhC CSggIlbfs6xuH6sMi3+PC 7gf2wnsc27uI13eLX+PHR vLGM8bOvnNDxy FZVazA9rNAujOiJ9HWShE cZfeF45hGMfKHbiCn0oqH dhjCjoXZ4yVQRmwnwyt26 8OuYbt0jaVUEf lJCdNAmoBAJ3J48ws7A5E NVsHQYvTZI9gGG9xV9ybZ lnbjogbGVmdDsgdmVydGl gIMhjBUjpJ367 IHRvcDsnPlBhdGllbnQgT rNbDNu2L6MhXkj4TKRibT tjLR1kxFIlVYufVo7ihBb eqBgbRQ4bLRBh tqqsr815CsMks8cvJMOjt QTeFAwtURN5F62wj8H5ZR WwRFKrITB1tFY3mA8moSb nbjogbGVmdDsg bgOljYyaAChyUEerC012T HRvcDsnPkJpcnRoIERhdG E1CU87XT99nEEcp9R9aVV 9W1OyIPLzjggq nzaqpAG4TZGfXAGewW83F i9cpIuoAp8jAXAyYYL2OG DweUPgY6GanI7rOxTnHWX vTZGsD1CrkDEx ECzuL239RPxvHoS7OXYve pQpE5CiIZQvxKqeWgG5z7 P4Xt1LW7H0MS50PR52rCQ ea2S6fSP0U8Wm JRAocvzfemvwiHY3MUVbH VGybM28Yt1coPnrXs5iIX HvZLS7CTBoyBJoP0EleL8 yOiAjMDAwMDAw Z3MyhAAdJUwrJ514VNtvS xR5KKQhtcNrH7KoQKOtlX sgDfL0b0G9Yp8OKTo8SY6 2UB75aBZkb7R8 bXG0W9PnEIQrnyjgwsvyp WQ3CJYjTIAxvN06Er7qcM cwIr2qFZGdXGU0PCGelXO wP7DorC6dXuAc PZVqPFVtW0TnaDZiDYcyP 671MYqfBhC2DYXosfMkX6 AnHEPbkDczHuP8q6X6Vb1 LHFVsRG99ITX7 yLG4YM27LZ35F8GiJkdcg GFibGU+PHRhYmxlIHdpZH RoPScxMDAlJyBzdHlsZT0 rMe3dLYWdTZKz nUjyyKJtSrZje7meHJRvA JqvSB2noXqlM1DixCQ1UB Cou3o3Mg08M66rV2OsjQQ +VSPxvWO6zDJ9 eI4xOwQpBcK9OVefE429C pYvsAGnTrdrp6msz1dswC k7YjI2LQSqlnMsiAaeXSL 9q5ZbBe55K34o IHdpZHRoPSIxNSUiIHZhb Zabxl8cdD4hHf4+PGNvbC V1qYN2iW3vFyXlJwH8GBy gF316WiDmzZQh Hmttc3ajv9chyGn8DaSgH KDwmtIafDicKLG9n6YyNh 44S9WpgXwmw0InTef9gw3 0jFEzp0D4kOA1 T0HzANDekbsdvZHurNdzN P9dMUUqrdplNJIqvS7pTQ SkL2a3VtZgGzB1AXpgZ8S vcjJ3QNEdnXPy SGyiKCW1M97qo1Q7FWAyI MOyLEK5rFT8xH0nzCaejz ogbGVmdDsgdmVydGljYWw zBEtdU863JVZy nBaeHXLlaE9lCDLnaGWhz MleDE1jHGGertvfQuSGMC FIXUWZKHrBWQCBUE41FQ3 1xUExa8K8gBF5 J4PlDTSphuuksvjdzTV5T DYdUEQjwH90cQUxRBkxLa 4ai5V1a241FMZwKMLnqV4 1Cm9juXlvGNSt yNNNhE7bdfvaa6nztvadT zFxNQBcDOe9SIb7HVBnwS ndBkHcOIT4LwI5HRH2qNA yrI2hrHpzudvp xA1gJhg+SCTaOvwrZHz8N jwvdGQ+SBDqZIR9mLurEY oiJCJwjQ8oJWSwX8j8KvI xYdK4MTpfQ4Wr NPNmdjbgDa90zM9iMlZjR cV5TYsbZ7UanoQ8CTXzmD ZsCSnfWHL7A24hx9S6HMX nZXNtQCN3eNA9 bX5mnUfzlwabcCTdcPfnz rXcgDrhCMjvVXquN005TL NncTerIiI2MYbwNTYoGZ2 0TF81bYAob3L7 rGQ4E1MwITJzcrehuljbz LY5PWXaXOKioN69hNSoXC qzZn6bu0H8a177DCYgVTV bsM91Ft3rbKit UOPffYLKnD6vhqxqs2epl bicSgZhWNOxNKg7OZg7AX ChtHipNhAsTKB2SmL4EIY 1jIKsjK7lhKmo sqvedO2xGlw+RmVtYWxlP J27GQ65fLMef7R1kOF7X1 BnIPDonxqkxudzoZJ1DMR nLFYxeI36dIWk AUnhNq9fm1O6l641JCJnW CGimO86Nb2smBbdXJQxtH MRkV7huolvd9nfwwvkBpH hJHMtKGu8NUh1 STAueYswPbUcZVO6BeF7Z QQ9gCWqmE9nfIntdhkioU 9wOyc+NV3nwapycgC7BB0 7HY99Q8VbHkdd dGFibGU+PHRhYmxlIHdpZ HRoPScxMDAlJyBzdHlsZT 8pIm7pIVTmOEKcxPlnfMS wTrDbu8oxHFWs MWkaMT8cvNtlL4RmoXN1L OWzp3e9Ef77D41qE6MzgV A+DSKmwTW8gLY7hW2iIiL kYhY3LFueS686 JuKlaMIkDjzkl9jtm5ezz Ck9IzThDNYpcfRzeObhYY L0a3SfTn95U46uOYxbJMB oPSIyMCUiIHZh tObjdt2oaY3rTm0+PGNvb PK7sTB2kL1xNyBvLkN7KV wfI936TbOohZPjMcsxD70 qB9VtxPC+PHRy Vcr4TVZlqSbmJK6uyHVnU ZzrOa1kJHO6YtTiYdZnFH ttB9ZxOTYydoasigatiJG 8PHBbLQFpmP23 Kv0rtGfmGg5oMSYfYBR5B GYugUFnI9YkiC3rMwHpHU UiTYMpL9AodJGnWKzhW70 4ZDrqBfW1WZKz xbZaA2WsFNIoxFxqOwD4b 8O3Oc3JpAuvsZRzCE8hOl JzYAm3G9BiAkl4SQPxhSi aPJ1ecQOhUXzq Jc7mdXuyzHvjHR4zSMBzd ptyt876YvFmf1moLCZotV EuURhiKRP1K19hs3F5EVA sFAYmMOS8eOB3 cJ7xsSanaruaxRQqyBolb jYhzQxjBTgpTAwdU633VD AcnMnpLhVEMpr1B7OuPzr 4IVBztOxiDG3a rVFhSZyfYd3swRjcsDuoO P3yIXYjlvmgo975ZqKws5 haNSRovEXoFQtyBEN8O25 xt1W8FEQzGSRg FNO7iIA2uR2rfQhvszrdl GVmdDsgdmVydGljYWwtYW dpO205GURsjGaaEz6MDzy 5Y3WhVlw3WNHc vZlvLW6zmJVbWIzbRn2wm EmzfEebQL8wOQUlwqjao4 92JrCke0tsCEKrzFXqJKv dKDC3C60qn2S0 YQNcBTLaVWA1bQL9zF8ud GlnbjogbGVmdDsgdmVydG prIIrpFVrkA450VILanLr nPlBheWVyOjwv dGQ+MX82dt77K1UvMaavR lt8UMBdTGX3qGI9zJ9oSA DuMKlgj0I0xKV7L5CkxpC bef9ao6gjGRQn ZTog (more content not included)... Normal [facility] .Manual Abson 02-23-2021 Basophils/Leukocyte s Manual cnt (Bld) [Pure # fraction] 0.0 E9/L Normal 0.0-0.2 [facility] Comment on above: Performed By: #### 2 [id number] ####[facility] [id number] [place] [address] Eosinophils/Leukocy kenyon Manual cnt (Bld) [Pure # fraction] 0.0 E9/L Normal 0.0-0.5 [facility] Comment on above: Performed By: #### 2 [id number] ####[facility] [id number] [place] [address] Lymphocytes/Leukocy kenyon Manual cnt (Bld) [Pure # fraction] 1.8 E9/L Normal 1.0-4.0 [facility] Comment on above: Performed By: #### 2 [id number] ####[facility] [id number] [place] [address] Monocytes/Leukocyte s Manual cnt (Bld) [Pure # fraction] 0.3 E9/L Normal 0.2-1.0 [facility] Comment on above: Performed By: #### 2 [id number] ####[facility] [facility] [address] [place] [address] Neutrophils/Leukocy kenyon Auto (Bld) [Pure # fraction] 1.7 E9/L Low 2.0-7.5 [facility] Comment on above: Performed By: #### 2 197160, [id number], 96634637, 44715324, 6654492, 6701351 ####[facility] [address] [place] [address] BMPon 02-23-2021 Creatinine [Mass/Vol] 0.7 mg/dL Normal 0.5-1.3 [facility] Comment on above: Performed By: #### 2 928269, 11816640, 70765744, 35148631, 3709595, 8215966 ####[facility] [address] [place] [address] Urea nitrogen [Mass/Vol] 7 mg/dL Normal 5-21 [facility] Comment on above: Performed By: #### 2 614527, 99950654, 27848192, 20943303, 0581716, 4197598 ####[facility] [address] [place] [address] Urea nitrogen/Creatinine [Mass ratio] 10 No Units Normal 10-20 [facility] Comment on above: Performed By: #### 2 421374, 21782157, 01002506, 77741042, 7276160, 0201914 ####[facility] [address] [place] [address] Anion gap [Moles/Vol] 13 mmol/L Normal 6-16 [facility] Comment on above: Performed By: #### 2 024770, 81816269, 89523608, 25887684, 2408237, 4699670 ####[facility] [address] [place] [address] Calcium [Mass/Vol] 9.0 mg/dL Normal 8.9-11.1 [facility] Comment on above: Performed By: #### 2 143026, 04396597, 41993789, 22302490, 0722600, 6831775 ####[facility] [address] [place] [address] Chloride [Moles/Vol] 103 mmol/L Normal 101-111 [facility] Comment on above: Performed By: #### 2 785364, 87033913, 08196139, 43330564, 7955729, 0357604 ####[facility] [address] [place] [address] CO2 [Moles/Vol] 22 mmol/L Normal 21-31 [facility] Comment on above: Performed By: #### 2 865509, 78293493, 76400732, 84900910, 7833017, 8758903 ####[facility] [address] [place] [address] Glucose [Mass/Vol] 129 mg/dL Normal 55-199 [facility] Comment on above: Result Comment: If t his glucose result represents a fasting glucose, interpretation should refer to the following reference range: 55-99 mg/dL Performed By: #### 2 496601, 60004932, 17788102, 48529426, 8055355, 8009149 ####[facility] [address] [place] [address] Potassium [Moles/Vol] 3.3 mmol/L Low 3.5-5.3 [facility] Comment on above: Performed By: #### 2 412008, 86449125, 49377667, 96131730, 5443809, 5139758 ####[facility] [address] [place] [address] Sodium [Moles/Vol] 135 mmol/L Normal 135-145 [facility] Comment on above: Performed By: #### 2 275273, 54188305, 88375455, 25909460, 5350832, 9793594 ####[facility] [address] [place] [address] CBC w/ Auto Diffon Erythrocyte distribution width (RBC) [Ratio] 13.5 % Normal 10.9-14.2 [facility] Comment on above: Performed By: #### 2 492017, 77928671, 30233657, 23542660, 2168900, 9120943 ####[facility] [address] [place] [address] Hematocrit (Bld) [Volume fraction] 37.1 % Normal 34.0-46.0 [facility] Comment on above: Performed By: #### 2 216575, 28760467, 95595259, 16638536, 8232597, 4249386 ####[facility] [address] [place] [address] Hemoglobin (Bld) [Mass/Vol] 12.5 g/dL Normal 12.0-16.0 [facility] Comment on above: Performed By: #### 2 613555, 74362810, 00674713, 42876517, 1359580, 8281332 ####[facility] [address] [place] [address] MCH (RBC) [Entitic mass] 29.4 pg Normal 27.0-34.0 [facility] Comment on above: Performed By: #### 2 198361, 20304714, 66896794, 12614039, 1605032, 4362498 ####[facility] [address] [place] [address] MCHC (RBC) [Mass/Vol] 33.6 g/dL Normal 31.4-36.0 [facility] Comment on above: Performed By: #### 2 166698, 30565341, 23262313, 52595979, 4859426, 1468451 ####[address] [place] [address] MCV (RBC) [Entitic vol] 87.4 fL Normal 80.0-100.0 [facility] Comment on above: Performed By: #### 2 834666, 52037811, 29207554, 96330288, 0665169, 9310789 ####[address] [address] Platelet mean volume (Bld) [Entitic vol] 9.4 fL Normal 6.4-10.8 [facility] Comment on above: Performed By: #### 2 382445, 48123156, 86954386, 74413979, 0447918, 9733800 ####[address] [address] Platelets (Bld) [#/Vol] 208.0 E9/L Normal 150.0-500.0 [facility] Comment on above: Performed By: #### 2 063966, 04169889, 60826882, 68161935, 1326226, 7886456 ####[address] [address] RBC (Bld) [#/Vol] 4.2 E12/L Low 4.3-5.9 [facility] Comment on above: Performed By: #### 2 346866, 13172351, 69659924, 71252356, 1291172, 5453989 ####[address] [address] WBC corrected for nucl RBC Auto (Bld) [#/Vol] 3.8 E9/L Low 4.0-11.0 [facility] Comment on above: Performed By: #### 2 194805, 61074029, 54141380, 85066973, 2932355, 0695544 ####[address] [place] [address] Consent for Treatmenton 02-06 Consent for Treatment [id number]:127 Normal [facility] Discharge Instructionson Discharge Instructions [id number] .[id number]:127 Normal [facility] ED Clinical Summaryon 2020 ED Clinical Summary [address] [address] ED Clinical Summary Person Information Name: BROOKLYNN GTZ [facility] Age: 26 Years : 1995 Sex: Female Language: Jordanian PCP: MICHAEL HELMS MD Marital Status: Phone: [phone] Visit Id: Visit Reason: Shortness of breath; [...] 15:23:48 02/23/2021 15:23:48 ADDRESS: [address] [place] [id number] PHYS DOC NOTES: MEDICAL INFORMATION: Prescriptions Given: [...] Follow up: With: Address: When: MICHAEL HELMS [address] [place] [address] Business (1) In 3 days 02/26/2021 DIAGNOSIS: 1:Vaccine reaction Normal [facility] ED Note-Physicianon 02-24-20 ED Note-Physician Basic Information [...] Information MICHAEL HELMS In 3 days 02/26/[address] [place] [address]- Business (1) Additional Instructions: Patient Education Post-Injection Inflammatory Reaction Attestation Patient seen and evaluated by the physician custody assistant. Attending physician was present in the emergency department and supervised care. This report was transcribed using voice recognition software. Every effort was made to ensure accuracy, however, inadvertently computerized transportation dispatcher mistakes may be present. Appropriate healthcare PPE [...] % (02/23/21 (more content not included)... Normal [facility] Comment on above: Result Comment: Elec tronically [...] a physical exam. During the exam, a wichita may be drawn around the injection site. The wichita helps to show whether redness in the area is spreading. How is this treated? Treatment for this condition depends on what caused the reaction and how severe the reaction is. Treatment may include: ? Putting an ice pack over the injection site. ? Taking a nonsteroidal anti-inflammatory drug (NSAID) to lessen swelling and itching. ? Taking antibiotic medicine. ? Taking xpjx-rmt-bfcwjrj pain medicine. If the reaction affects a joint, you may also need to rest the joint for a while. Follow these instructions at home: Medicines ? If you were prescribed antibiotic medicine, take or apply it as told by your health care provider. Do not stop taking or applying the antibiotic even if you start to feel better. ? Take uyah-zwg-wqcfpke and prescription medicines only as told by [...] Reviewed: 03/02/2019 Elsevier Patient Education ? 2019 [employer] Normal [facility] ED Patient Summaryon 021 ED Patient Summary [address] [address] Patient Discharge Instructions Person Information Name: BROOKLYNN GTZ Age: 26 Years Arrival Date: 02/23/2021 12:58:05 Discharge Diagnosis: 1:Vaccine reaction Primary Care Physician: MICHAEL HELMS MD Provider Information Primary Provider: Julee Herrera M.D. Advanced Oral Therapist:Robert Urena PA-C The exam and treatment you received in the Emergency Department were for an urgent problem and are not intended as complete care. It is important that you follow up with a doctor, nurse practitioner, or physician?s custody assistant for ongoing care. If your symptoms [...] Follow-up Instructions: With: Address: When: MICHAEL HELMS [address] [place] [address] Business (1) In 3 days 02/26/2021 In the event that this physician does not participate in your insurance network, please consult with your insurance company to find a nearby participating provider. Patient Education Materials: Post-Injection Inflammatory Reaction A MESSAGE TO ALL PATIENTS REGARDING OPIOIDS PRESCRIPTION OPIOIDS: WHAT YOU NEED TO KNOW Prescription opioids can be used to help relieve jhqfhgsg-db-uvckcr pain and are often prescribed following a [...] be struggling with addiction, tell your health care provider and ask for guidance or call [employer]?S National Helpline at 5-499-635-OBBR. (more content not included)... Normal [facility] Manual Diffon 02-23-2021 Band form neutrophils/100 WBC (Bld) 6 % Normal 0-10 [facility] Comment on above: Order Comment: Order Added by Discern Expert. Performed By: #### 2 998613, 91595153, 82995571, 01248309, 3091567, 5986548 ####[facility] [address] [place] [address] Basophils/100 WBC (Bld) 0 % Normal 0-2 [facility] Comment on above: Order Comment: Order Added by Discern Expert. Performed By: #### 2 338258, 88948475, 76551296, 75860016, 0609981, 0763838 ####[facility] [address] [place] [address] Eosinophils/100 WBC (Bld) 1 % Normal 0-8 [facility] Comment on above: Order Comment: Order Added by Discern Expert. Performed By: #### 2 026557, 27831249, 75306830, 96420603, 5539208, 8858951 ####[facility] [address] [place] [address] Lymphocytes/100 WBC (Bld) 44 % Normal 14-50 [facility] Comment on above: Order Comment: Order Added by Discern Expert. Performed By: #### 2 006383, 43356261, 01840727, 33276659, 2511566, 1241050 ####[facility] [address] [place] [address] Monocytes/100 WBC (Bld) 7 % Normal 4-14 [facility] Comment on above: Order Comment: Order Added by Discern Expert. Performed By: #### 2 101709, 04084988, 39995164, 39575610, 8070630, 6964994 ####[facility] [address] [place] [address] Morphology Mateusz (Bld) [Interp] Normal Normal [facility] Comment on above: Order Comment: Order Added by Discern Expert. Performed By: #### 2 564535, 51699081, 96405431, 85270248, 9530227, 4657426 ####[facility] [address] [place] [address] Segmented neutrophils/100 WBC (Bld) 39 % Normal 36-75 [facility] Comment on above: Order Comment: Order Added by Discern Expert. Performed By: #### 2 081622, 22926768, 12343673, 28540612, 0712744, 7104438 ####[facility] [address] [place] [address] Variant lymphocytes LM Ql (Bld) 3 % Invalid Interpretation Code [facility] Comment on above: Order Comment: Order Added by Discern Expert. Performed By: #### 2 219289, 09831941, 09351971, 26432851, 1675790, 5800220 ####[facility] [address] [place] [address] Prescriptions/Work Noteson 1 04-25-2020 Prescriptions/Work Notes [id number] .[id number]:127 Normal [facility] Troponin 0 Hr.on 02-23-2021 Troponin I.cardiac [Mass/Vol] 2.30 pg/mL Low 10.10-27.10 [facility] Comment on above: Result Comment: The 95% CI (Confidence Interval) PPV (Positive Predictive Value) for myocardial infarction in females is 38 pg/mL, in males 51 pg/mL. The results should be used in conjunction with clinical conditions of myocardial infarction. (Access High Sensitivity Troponin I Instructions For Use, Emre Yappn, November 2017) Performed By: #### 2 445915, 86873601, 01358126, 82794899, 6391882, 1351735 ####[facility] [address] [place] [address] XR Chest Single Viewon 02-23 XR Chest Single View Exam Date/Time: 02/23/2021 13:59 EST Reason for Exam: Cough Report IMPRESSION: THERE ARE NO ACUTE CARDIOPULMONARY CHANGES CLINICAL HISTORY: Cough COMPARISON: NONE. FINDINGS: The cardiomediastinal silhouette is unremarkable. The lungs are free of infiltrates effusions or consolidations. The bones and soft tissues are within normal limits. FINAL REPORT Dictated: 02/23/2021 2:40 pm Ramírez Mckeon MD, V. Signed (Electronic Signature): 02/23/2021 2:40 pm Signed by: Ramírez Mckeon MD, V. Transcribed by: KEMAR Technologist: DYAN Normal [facility] eGFRon 02-23-2021 GFR/1.73 sq M.predicted among blacks MDRD (S/P/Bld) [Vol rate/Area] mL/min/{1.73_m2} Normal >=59 [facility] Comment on above: Order Comment: Order added by Discern Expert. Result Comment: eGFR is race adjusted. AA=. Performed By: #### 2 541705, 69161305, 75965327, 33027359, 4158963, 6688942 ####[facility] [address] [place] [address] GFR/1.73 sq M.predicted among non-blacks MDRD (S/P/Bld) [Vol rate/Area] mL/min/{1.73_m2} Normal >=59 [facility] Comment on above: Order Comment: Order added by Discern Expert. Result Comment: Quantitative Associate jorden kidney disease could be indicated at eGFR's of less than 60 mL/min/1.73m2. Kidney failure is indicated at less than 15 mL/min/1.73m2. Performed By: #### 2 197784, 87884859, 20042930, 51841357, 2077833, 8180129 ####[facility] [address] [place] [address] Ambulatory Clinical Summaryo 10-14-2020 Ambulatory Clinical Summary {[id number]}CD:[id number] Normal [facility] Vital Signs Date Time Vital Sign Value Performing Clinician Facility 06-22-2022 09:21-0400 Body height 167.6 cm ANTELMO Bills MD Work Phone: [facility] 06-22-2022 09:21-0400 Body weight 112.49 kg ANTELMO Bills MD Work Phone: [facility] 08-08-2021 14:31-0400 Body temperature 98.24 [degF] Sourav Milad [facility] 08-08-2021 14:31-0400 Diastolic blood pressure 97 mm[Hg] Sourav Stinson [facility] 08-08-2021 14:31-0400 Heart rate 94 /min Sourav Stinson [facility] 08-08-2021 14:31-0400 Respiratory rate 18 /min Sourav Stinson [facility] 08-08-2021 14:31-0400 SaO2% (BldA) [Mass fraction] 98 % Sourav Stinson [facility] 08-08-2021 14:31-0400 Systolic blood pressure 137 mm[Hg] Sourav Stinson [facility] Encounters Encounter Date Encounter Type Care Provider Facility Start: 06-19-2023 End: 06-19-2023 ambulatory CELESTE JACINTO Not Available Start: 06-13-2023 End: 06-13-2023 ambulatory CELESTE JACINTO Not Available Start: 03-05-2023 End: 03-05-2023 ambulatory CELESTE JACINTO Not Available Start: 08-14-2022 Encounter for genera l adult medical examination without abnormal findings DR MICHAEL HELMS [facility] Start: 08-07-2022 End: 08-08-[address] MICHAEL HELMS Facility:[facility] Start: 08-07-2022 End: 08-08-2022 Encounter for general adult medical examination without abnormal findings DR MICHAEL HELMS Facility:[facility] Start: 06-22-2022 End: 06-22-2022 Patient encounter procedure J Yakov Bills MD Work Phone: Plastic Surgery Comment on above: OPENED IN ERROR (Jeannie danielle Dx) Start: 06-14-2022 End: 06-14-2022 ambulatory SUMMER LEON Facility:[facility] Start: 02-02-2022 End: 02-03-[address] MICHAEL HELMS Facility:[facility] Start: 01-31-2022 End: 01-31-[address] CELESTE JACINTO . Facility:[facility] Start: 08-23-2021 End: 08-24-[address] MICHAEL HELMS Facility:[facility] Start: 08-08-2021 End: 08-08-2021 Emergency department patient visit Sourav Stinson [facility] Procedures Date Procedure Procedure Detail Performing Clinician Start: 01-27-2015 excision of pilar [address] - local Sourav Stinson Lithotripsy Sourav Stinson Plan of Treatment Date Care Activity Detail Author Start: 04-08-2022 DEPRESSION ASSESSMENT DEPRESSION ASS ESSMENT [facility] Start: 12-07-2021 Influenza vaccination INFLUENZA (#1) [facility] Start: 04-18-2021 COVID-19 VACCINE (2 - Booster for Vinny series) COVID-19 VACCINE (2 - Booster for Vinny series) [facility] Start: 02-03-2017 PAP TESTING PAP TESTING [facility] Start: 02-03-2015 Urine microalbumin profile DTAP,TDAP ,TD (1 - Tdap) [facility] Start: 02-03-2014 HEPATITIS C SCREENING HEPATITIS C SC REENING [facility] Start: 02-03-2014 HIV SCREENING HIV SCREENING [facility] Start: 02-03-2010 PEDS TO ADULT TRANSI TION ANNUAL ASSESSMENT PEDS TO ADULT TRANSITION ANNUAL ASSESSMENT [facility] Start: 2008 PEDS TO ADULT TRANSI TION INITIAL DISCUSSION PEDS TO ADULT TRANSITION INITIAL DISCUSSION [facility] Start: 02-03-2007 HPV VACCINE (1 - 2-d ose series) HPV VACCINE (1 - 2-dose series) [facility] Start: 1996 HEPATITIS B (1 of 3 - 3-dose series) HEPATITIS B (1 of 3 - 3-dose series) [facility] Payers Date Payer Category Payer Unknown [id number] 2.16.84 [id number] 1995 Unknown [id number] 2.16.84 [id number] 1996 Unknown [id number] 2.16.84 [id number] 1996 Unknown [id number] 2.16.84 [id number] 1996 Unknown [id number] 2.16.84 [id number] 1996 Unknown [id number] 2.16.84 [id number] 1996 Unknown [id number] 2.16.84 [id number] 1996 Unknown [id number] 1959 Private Health Insurance [id number] 1958 Unknown [id number] Social History Date Type Detail Facility Start: 10-11-2018 End: 06-22-2022 Tobacco smoking status Never smoked tobacco (finding) [facility] Sex Assigned At Female [facility] Start: 06-22-2022 Tobacco use and exposure Smokeless tobacco non-user [facility] Start: 1995 Sex Assigned At Not on file [facility] History of Present illness Narrative 06-22-2022 Raya Brooks RN - 06/22/2022 9:18 AM EDT Note Date & Type Note Facility 06-22-2022 History of Presen t illness Narrative OPENED IN ERROR documented in this encounter [facility] Clinical Note 08-23-2021 Note Date & Type [...] authenticated by: CARMEN SOLORIO Date: 2021-08-23 14:56 [facility] Discharge instructions 08-08-2021 Note Date & Type Note Facility 08-08-2021 Hospital Discharg e instructions Patient Education 08/08/2021 15:44:15 Animal Bite, Adult, Jgjt-kf-Hftz Animal Bite, Adult Animal bite wounds can [...] cannot use 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 ?Change your bandage as told by your [...] a bad smell. Medicines Take or apply zkmz-ygh-pdevwsd and prescription medicines only as told by [...] 03/25/2006 Document Revised: 03/20/2018 Document Reviewed: 10/03/2017 [employer] Patient Education 2020 IM5. Follow Up Care 08/08/2021 14:30:18 With:MICHAEL HELMS Address: [address] [place], [place] [address] [address] Business (1) When:08/11/2021 15:01:11 [facility] Evaluation + Plan note Note Date & Type Note Facility Evaluation + Plan note No data available for this section [facility] Evaluation note Note Date & Type Note Facility Evaluation note Diagnosis OPENED IN ERROR- Primary To allow closing an encounter opened in error (used in SmartSet) documented in this encounter [facility] Summary Purpose Family History No Family History Records FoundNo Family History Records FoundNo Family History Records FoundNo Family History Records Found Advance Directives No Advanced Directives Records FoundNo Advanced Directives Records FoundNo Advanced Directives Records FoundNo Advanced Directives Records Found Additional Source Comments INFORMATION SOURCE (unrecogn ized section and content) DATE CREATED AUTHOR 08/12/2021 [facility] DATE CREATED AUTHOR AUTHOR'S ORGANIZ ATION 09/12/2021 [facility] DATE CREATED AUTHOR AUTHOR'S ORGANIZ ATION 08/15/2022 [facility] DATE CREATED AUTHOR AUTHOR'S ORGANIZ ATION 06/21/2023 [facility] EPIC Source Comments (unrecognize d section and content) In the event this informatio n is protected by the Federal Confidentiality of Alcohol and Drug Abuse Patient Records regulations: The Federal rules restrict any use of the information to criminally investigate or prosecute any alcohol or drug abuse patient.[facility] Reason for Visit (unrecogniz ed section and content) Reason Comments Opened In Error Care Teams (unrecognized sec tion and content) Talent Recruiter Relationship Specialty Start Date End Date Michael Helms [address] [place] [address] PCP - General Family Medicine 06/08/22 FOR [...] BE BASED ON THE PRIMARY CLINICAL RECORDS. [facility]. provides no warranty or guarantee of the accuracy or completeness of information in this document.
[2023-07-23 04:07] LABS: Progesterone 0.1 ng/mL (.)
== END 2023-07-22 13:07 | disposition home or self-care (01) ==
LOC: LAB 13:07
PROVIDERS: PCP Family Medicine; Visit Provider Obstetrics & Gynecology
DX: N97.0 Female infertility associated with anovulation (principal)
CPT/HCPCS: 36415; 84144

== ENCOUNTER 2023-08-29 14:37 | Outpatient (OUT) | payer OTHER, SELFPAY ==
[2023-08-30 08:12] LABS: Progesterone 0.2 ng/mL (.)
== END 2023-08-29 14:38 | disposition home or self-care (01) ==
LOC: LAB 14:37
PROVIDERS: PCP Family Medicine; Visit Provider Obstetrics & Gynecology
DX: N97.0 Female infertility associated with anovulation (principal)
CPT/HCPCS: 36415; 84144

== ENCOUNTER 2023-10-09 09:33 | Outpatient (RCR) | payer OTHER, SELFPAY ==
[2023-10-09 11:31] LABS: HCG Quantitative 229 mIU/mL
[2023-10-11 10:52] LABS: HCG Quantitative 553 mIU/mL
[2023-10-16 10:02] LABS: HCG Quantitative 4572 mIU/mL
== END 2023-11-06 08:22 | disposition home or self-care (01) ==
LOC: LAB 09:33
PROVIDERS: PCP Family Medicine; Visit Provider Obstetrics & Gynecology
DX: N92.6 Irregular menstruation, unspecified (principal)
CPT/HCPCS: 36415; 84702

== ENCOUNTER 2023-10-25 08:57 | Outpatient (OUT) | payer OTHER, SELFPAY ==
--- NOTE | 2023-10-25 08:59 | US_ITS ---
[address] [address] Patient Name: BROOKLYNN GTZ MRN: [id number] date: 1995 Sex: F Assigned Patient Location: [facility] Current Patient Location: [facility] Accession/Order Number: [id number] Exam Date: 10/25/2023 09:00 Report Date: 10/25/2023 10:29 At the request of: CELESTE JACINTO Procedure: US OB transvaginal EXAMINATION: US OB transvaginal HISTORY: MISSED MENSES COMPARISON: No relevant comparison available. FINDINGS: GESTATIONAL SAC: Present and normal appearing. YOLK SAC: Present and normal appearing. POLE: Present and normal appearing. CARDIAC: Present. UTERUS: Normal size and appearance. OVARIES: Right: Normal. Left: Normal. CERVIX: 4.4 cm in length and closed. CUL-DE-SAC: Normal. OTHER: None. AGE BY LMP: 11 weeks 1 day JUDE BY LMP: 05/14/2024 AGE BY US CRL: 6 weeks 0 days JUDE BY US CRL: 06/19/2024 US/US OB transvaginal IMPRESSION: 1. Single live intrauterine . Electronically authenticated by: CARMEN SOLORIO Date: 10/25/2023 10:29
--- OUTSIDE RECORDS SUMMARY | 2023-10-25 09:18 | XMS_ITS | CCD ---
Author Organization [facility] Care Team Providers Care Senior Hydrogeologist Name Role Phone MICHAEL HELMS Primary Care Physician [phone] Michael Helms Primary Care Provider [phone] SCOOTER, DR MICHAEL Camejo Admitting Unavailable NADERELauren, DR MICHAEL Camejo Attending Unavailable NADERER, DR MICHAEL Camejo Consulting Unavailable NADERER, DR MICHAEL Camejo Primary Care Unavailable EDWARD, SUMMER Attending Unavailable EDWARD, SUMMER Admitting Unavailable [place] ., PEDRO BAINS Consulting Unavailabl e SCOOTER, DR MICHAEL Camejo Primary Care [...] CELESTE Attending Unavailable ORVILLE, CELESTE Attending Unavailable ORVILLE, CELESTE Attending Unavailable NADERER, MICHAEL Attending Unavailable ORVILLE, CELESTE Attending Unavailable JULIO PULIDO Attending Unavailable ESAU, ENIO Attending Unavailable Medications Current Medications Medication Drug [...] day(s), # 28 tab(s), Refills(s) 0, Pharmacy: [facility]/pharmacy #[id number], 168, cm, 08/08/21 14:35:00 EDT, Height/Length [...] current use of drug therapy; Translations: [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 Rasta Gatica Basophils/100 WBC (Bld) 0.4 % Normal 0.2-2.0 [facility] Comment on above: Performed By: #### C BC ####[facility] Whsfj[address] [place], [place] [address]DrHany Gatica EO # 0.2 103/ul Normal 0.0-0.7 [facility] Comment on above: Performed By: #### C BC ####[facility] Ymzr[address]cfr[address] [place], [place] [address]DrHany Gatica Eosinophils/100 WBC (Bld) 1.3 % Normal 0.9-7.0 [facility] Comment on above: Performed By: #### C BC ####[facility] K[address]cn[address]ub[address] [place], [place] [address]DrHany Gatica Erythrocyte distribution width (RBC) [Ratio] 12.7 % Normal 11.0-15.0 [facility] Comment on above: Performed By: #### C BC ####[facility] Uoioax[address] [place], [place] [address]DrHany Gatica Hematocrit (Bld) [Volume fraction] 40.3 % Normal 36.0-48.0 [facility] Comment on above: Performed By: #### C BC ####[facility] [address] [place] [address]DrHany Gatica Hemoglobin (Bld) [Mass/Vol] 13.1 g/dL Normal 12.0-16.0 [facility] Comment on above: Performed By: #### C BC ####[facility] [address] [place] [address]Dr. Rasta Gatica IG # 0.03 10e3/ul Normal 0.00-0.03 [facility] Comment on above: Performed By: #### C BC ####[facility] [address] [place] [address]DrHany Gatica IG % 0.3 % Normal 0.0-0.5 [facility] Comment on above: Performed By: #### C BC ####[facility] [address] [place], [place] [address]DrHany Gatica LYMPH # 2.9 103/ul Normal 1.2-3.8 [facility] Comment on above: Performed By: #### C BC ####[facility] [address] [place] [address]DrHany Gaitca Lymphocytes/100 WBC (Bld) 25.5 % Normal 20.5-60.0 [facility] Comment on above: Performed By: #### C BC ####[facility] [address] [place] [address]DrHany Gatica MANUAL DIFF REQ NO Normal [facility] Comment on above: Performed By: #### C BC ####[facility] [address] [place] [id number] Gatica MCH (RBC) [Entitic mass] 29.1 pg Normal 26.7-34.0 [facility] Comment on above: Performed By: #### C BC ####[facility] [address] [place] [id number] Gatica MCHC (RBC) [Mass/Vol] 32.5 g/dL Normal 29.9-35.2 [facility] Comment on above: Performed By: #### C BC ####[facility] [address]se[address] [place] [id number]. Rasta En MCV (RBC) [Entitic vol] 89.6 fL Normal 81.0-99.0 [facility] Comment on above: Performed By: #### C BC ####[facility] [address] [place] [address]Dr. Rasta Gatica MONO # 0.8 103/ul Normal 0.3-0.8 [facility] Comment on above: Performed By: #### C BC ####[facility] [address] [place] [address]Dr. Rasta Gatica Monocytes/100 WBC (Bld) 7.2 % Normal 1.7-12.0 [facility] Comment on above: Performed By: #### C BC ####[facility] [address] [place], [place] [address]Dr. Rasta Gatica NEUT # 7.3 103/ul Critically high 1.4-6.5 [facility] Comment on above: Performed By: #### C BC ####[facility] R[address] [place], [place] [address]Dr. Rasta Gatica Neutrophils/100 WBC (Bld) 65.3 % Normal 43.0-75.0 [facility] Comment on above: Performed By: #### C BC ####[facility] Dogqds[address] [place], [place] [address]Dr. Rasta aGtica Platelet mean volume (Bld) [Entitic vol] 10.7 fL Normal 9.5-13.5 [facility] Comment on above: Performed By: #### C BC ####[facility] [address] [place], [place] [id number]. Rasta Gatica PLT 279 103/ul Normal 150-450 [facility] Comment on above: Performed By: #### C BC ####[facility] [address] [place] [id number]. Rasta Gatica RBC 4.50 106/ul Normal 4.20-5.40 [facility] Comment on above: Performed By: #### C BC ####[facility] [address] [place], [place] [address]Dr. Rasta Gatica WBC 11.2 103/ul Critically high 4.0-11.0 [facility] Comment on above: Performed By: #### C BC ####[facility] [address] [place] [id number]. Rasta Gatica GLYCOHEMOGLOBIN A1Con 2022 ADA RECOMMENDATION SEE BELOW Normal [facility] Comment on above: Result Comment: ADA RECOMMENDED LIMIT 4.0 - 6.0 ADA THERAPEUTIC TARGET < 7.0 ACTION SUGGESTED > 7.0 Performed By: #### A 1C #### [facility] [address] [place] [address] [address] Rasta Gatica Glucose [Mass/Vol] 103 mg/dL Normal [facility] Comment on above: Performed By: #### A 1C #### [facility] [address] [place] [address] [address] Rasta Gatica HbA1c (Bld) [Mass fraction] 5.2 % Normal 4.5-6.2 [facility] Comment on above: Performed By: #### A 1C #### [facility] [address] [address] [address] Rasta Gatica LIPID PROFILEon 08-07-2022 CHOL-HDL RATIO NORM SEE BELOW Normal [facility] Comment on above: Result Comment: 3.3 - 4.4 LOW RISK 4.4 - 7.1 AVERAGE RISK 7.1 - 11.0 MODERATE RISK >11.0 HIGH RISK Performed By: #### L IPID, BMP, TSH, LIVER #### [facility] [address] [address] [address] Rasta Gatica Cholesterol [Mass/Vol] 234 mg/dL Critically high <=200 [facility] Comment on above: Performed By: #### L IPID, BMP, TSH, LIVER #### [facility] [address] [address] [address] Rasta Gatica Cholesterol in HDL [Mass/Vol] 67 mg/dL Critically high 40-60 [facility] Comment on above: Performed By: #### L IPID, BMP, TSH, LIVER #### [facility] [address] [address] [address] Rasta Gatica Cholesterol in LDL [Mass/Vol] 151.8 mg/dL Normal [facility] Comment on above: Performed By: #### L IPID, BMP, TSH, LIVER #### [facility] [address] [address] [address] Rasta Gatica Cholesterol.total/C holesterol in HDL [Mass ratio] 3.5 {ratio} Normal [facility] Comment on above: Performed By: #### L IPID, BMP, TSH, LIVER #### [facility] [address] [address] [address] Rasta Gatica HDL NORMAL > or = 60 mg/dl - LO W CARDIOVASCULAR RISK <40 mg/dl - HIGH CARDIOVASCULAR RISK Normal [facility] Comment on above: Performed By: #### L IPID, BMP, TSH, LIVER #### [facility] [address] [address] [address] Rasta Gatica LDL CALC NORMAL SEE BELOW Normal [facility] Comment on above: Result Comment: <100 mg/dl OPTIMAL 100 - 129 mg/dl NEAR OR ABOVE OPTIMAL 130 - 159 mg/dl BORDERLINE HIGH 160 - 189 mg/dl HIGH >190 mg/dl VERY HIGH Performed By: #### L IPID, BMP, TSH, LIVER #### [facility] [address] [address] [address] Rasta Gatica Triglyceride [Mass/Vol] 76 mg/dL Normal <=150 [facility] Comment on above: Performed By: #### L IPID, BMP, TSH, LIVER #### [facility] [address] [address] [address] Rasta Gatica VLDL CALC 15.2 mg/dL Normal [facility] Comment on above: Performed By: #### L IPID, BMP, TSH, LIVER #### [facility] [address] [address] [address] Rasta Gatica LIVER PROFILEon 08-07-2022 Albumin [Mass/Vol] 3.8 g/dL Normal 3.4-5.0 [facility] Comment on above: Performed By: #### L IPID, BMP, TSH, LIVER #### [facility] [address] [place] [address] Dr. Rasta Gatica Albumin/Globulin [Mass ratio] 1.0 {ratio} Normal [facility] Comment on above: Performed By: #### L IPID, BMP, TSH, LIVER #### [facility] [address] [place] [address] Dr. Rasta Gatica ALP [Catalytic activity/Vol] 98 U/L Normal 46-116 [facility] Comment on above: Performed By: #### L IPID, BMP, TSH, LIVER #### [facility] [address] [place] [address] Dr. Rasta Gatica ALT [Catalytic activity/Vol] 24 U/L Normal 14-59 [facility] Comment on above: Performed By: #### L IPID, BMP, TSH, LIVER #### [facility] [address] [place] [address] Dr. Rasta Gatica AST [Catalytic activity/Vol] 19 U/L Normal 15-37 [facility] Comment on above: Performed By: #### L IPID, BMP, TSH, LIVER #### [facility] [address] [place] [address] Dr. Rasta Gatica BILI, CONJUGATED 0.1 mg/dL Normal 0.0-0.2 [facility] Comment on above: Performed By: #### L IPID, BMP, TSH, LIVER #### [facility] [address] [place] [address] Dr. Rasta Gatica Bilirubin [Mass/Vol] 0.4 mg/dL Normal 0.2-1.0 [facility] Comment on above: Performed By: #### L IPID, BMP, TSH, LIVER #### [facility] [address] [place] [address] Dr. Rasta Gatica Globulin (S) [Mass/Vol] 3.8 g/dL Normal [facility] Comment on above: Performed By: #### L IPID, BMP, TSH, LIVER #### [facility] [address] [address] [address] Rasta Gatica Protein [Mass/Vol] 7.6 g/dL Normal 6.4-8.2 [facility] Comment on above: Performed By: #### L IPID, BMP, TSH, LIVER #### [facility] [address] [place] [address] Dr. Rasta Gatica PROF CHEM 8 (BAS METB)on Anion gap [Moles/Vol] 9.6 mmol/L Normal [facility] Comment on above: Performed By: #### L IPID, BMP, TSH, LIVER #### [facility] [address] [place] [address] Dr. Rasta Gatica Calcium [Mass/Vol] 9.8 mg/dL Normal 8.5-10.1 [facility] Comment on above: Performed By: #### L IPID, BMP, TSH, LIVER #### [facility] [address] [place] [address] Dr. Rasta Gatica Chloride [Moles/Vol] 106 mmol/L Normal 98-107 [facility] Comment on above: Performed By: #### L IPID, BMP, TSH, LIVER #### [facility] [address] [place] [address] Dr. Rasta Gatica CO2 [Moles/Vol] 27.0 mmol/L Normal 21.0-32.0 [facility] Comment on above: Performed By: #### L IPID, BMP, TSH, LIVER #### [facility] [address] [place] [address] Dr. Rasta Gatica Creatinine [Mass/Vol] 0.66 mg/dL Normal 0.55-1.02 [facility] Comment on above: Performed By: #### L IPID, BMP, TSH, LIVER #### [facility] [address] [place] [address] Dr. Rasta Gatica EGFR-AF CYMRO >60 Normal >=60 [facility] Comment on above: Performed By: #### L IPID, BMP, TSH, LIVER #### [facility] [address] [place] [address] Dr. Rasta Gatica EGFR-NON AF CYMRO >60 Normal >=60 [facility] Comment on above: Performed By: #### L IPID, BMP, TSH, LIVER #### [facility] [address] [address] [address] Rasta Gatica Glucose [Mass/Vol] 88 mg/dL Normal 74-106 [facility] Comment on above: Performed By: #### L IPID, BMP, TSH, LIVER #### [facility] [address] [address] [address] Rasta Gatica Potassium [Moles/Vol] 4.6 mmol/L Normal 3.5-5.1 [facility] Comment on above: Performed By: #### L IPID, BMP, TSH, LIVER #### [facility] [address] [address] [address] Rasta Gatica Sodium [Moles/Vol] 138 mmol/L Normal 136-145 [facility] Comment on above: Performed By: #### L IPID, BMP, TSH, LIVER #### [facility] [address] [address] [address] Rsata Gatica Urea nitrogen [Mass/Vol] 10.0 mg/dL Normal 7.0-18.0 [facility] Comment on above: Performed By: #### L IPID, BMP, TSH, LIVER #### [facility] [address] [address] [address] Rasta Gatica Urea nitrogen/Creatinine [Mass ratio] 15.2 mg/mg Normal [facility] Comment on above: Performed By: #### L IPID, BMP, TSH, LIVER #### [facility] [address] [place] [address] [address] Rasta Gatica TSHon 08-07-2022 TSH 1.521 uIU/mL Normal 0.358-3.740 [facility] Comment on above: Performed By: #### L IPID, BMP, TSH, LIVER #### [facility] [address] [address] [address] HEAD WO CONon [...] authenticated by: GLENN PACHECO Date: 2022-06-14 20:18 [facility] PAP ACOG PANEL 2: 22 to 30on 02-08-2022 . . Normal [facility] Comment on above: Performed By: #### [id number] #### [facility] [address] [place] [address] Dr. Rasta Gatica Age Gdln ACOG Testing 22- [facility] Comment on above: Performed By: #### [id number] #### [facility] [address] [place] [address] Dr. Rasta Gatica DIAGNOSIS: Comment [facility] Comment on above: Result Comment: NEGA TIVE FOR INTRAEPITHELIAL LESION OR MALIGNANCY. Performed By: #### [id number] #### [facility] [address] [place] [address] Dr. Rasta Gatica Methodology: Comment [facility] Comment on above: Result Comment: This liquid based ThinPrep(R) pap test was screened with the use of an image guided system. Performed By: #### [id number] #### [facility] [address] [place] [address] Dr. Rasta Gatica Note: Comment [facility] Comment on above: Result Comment: The Pap smear is a screening test designed to aid in the detection of premalignant and malignant conditions of the uterine cervix. It is not a diagnostic procedure and should not be used as the sole means of detecting cervical cancer. Both false-positive and false-negative reports do occur. . Performed By: #### 4 [id number] #### [facility] [address] [address] [address] Rasta Gatica Performed by: Comment Normal [facility] Comment on above: Result Comment: Darline Terry, Wire Machine Cutter (ASCP) Performed By: #### [id number] #### [facility] [address] [place] [address] Dr. Rasta Gatica Reflex Criteria: Comment Normal [facility] Comment on above: Result Comment: The HPV DNA reflex criteria were not met with this specimen result therefore, no HPV testing was performed. . Performed By: #### [id number] #### [facility] [address] [address] [address] Rasta Gatica Specimen adequacy: Comment Normal [facility] Comment on above: Result Comment: Sati sfactory for evaluation. Endocervical and/or squamous metaplastic cells (endocervical component) are present. Performed By: #### [id number] #### [facility] [address] [place] [address] Dr. Rasta Gatica CBC AUTO DIFFon 02-02-2022 BASO # 0.0 103/ul Normal 0.0-0.1 [facility] Comment on above: Performed By: #### C BC ####[facility] [address] [place], [place] [address]Dr. Rasta Gatica Basophils/100 WBC (Bld) 0.4 % Normal 0.2-2.0 [facility] Comment on above: Performed By: #### C BC ####[facility] [address] [place] [address]Dr. Rasta Gatica EO # 0.1 103/ul Normal 0.0-0.7 [facility] Comment on above: Performed By: #### C BC ####[facility] [address] [place] [address]Dr. Rasta Gatica Eosinophils/100 WBC (Bld) 1.3 % Normal 0.9-7.0 [facility] Comment on above: Performed By: #### C BC ####[facility] [address] [place] [address]Dr. Rasta Gatica Erythrocyte distribution width (RBC) [Ratio] 13.2 % Normal 11.0-15.0 [facility] Comment on above: Performed By: #### C BC ####[facility] [address] [place] [address]DrHany Gatica Hematocrit (Bld) [Volume fraction] 40.8 % Normal 36.0-48.0 [facility] Comment on above: Performed By: #### C BC ####[facility] [address] [place], [place] [address]DrHany Gatica Hemoglobin (Bld) [Mass/Vol] 13.2 g/dL Normal 12.0-16.0 [facility] Comment on above: Performed By: #### C BC ####[facility] [address] [place], [place] [address]DrHany Gatica IG # 0.03 10e3/ul Normal 0.00-0.03 [facility] Comment on above: Performed By: #### C BC ####[facility] [address] [place], [place] [address]Dr. Rasta Gatica IG % 0.3 % Normal 0.0-0.5 [facility] Comment on above: Performed By: #### C BC ####[facility] V[address] [place], [place] [address]DrHany Gatica LYMPH # 2.8 103/ul Normal 1.2-3.8 [facility] Comment on above: Performed By: #### C BC ####[facility] [address] [place], [place] [address]DrHany Gatica Lymphocytes/100 WBC (Bld) 29.1 % Normal 20.5-60.0 [facility] Comment on above: Performed By: #### C BC ####[facility] [address] [place], [place] [address]DrHany Gatica MANUAL DIFF REQ NO Normal [facility] Comment on above: Performed By: #### C BC ####[facility] [address] [place], [place] [address]DrHany Gatica MCH (RBC) [Entitic mass] 29.1 pg Normal 26.7-34.0 [facility] Comment on above: Performed By: #### C BC ####[facility] [address] [place] [address]Dr. Rasta Gatica MCHC (RBC) [Mass/Vol] 32.4 g/dL Normal 29.9-35.2 [facility] Comment on above: Performed By: #### C BC ####[facility] [address]rcx[address] [place] [address]DrHany Gatica MCV (RBC) [Entitic vol] 90.1 fL Normal 81.0-99.0 [facility] Comment on above: Performed By: #### C BC ####[facility] [address] [place], [place] [address]DrHany Gatica MONO # 0.6 103/ul Normal 0.3-0.8 [facility] Comment on above: Performed By: #### C BC ####[facility] [address]ts[address] [place], [place] [address]Dr. Rasta Gatica Monocytes/100 WBC (Bld) 6.6 % Normal 1.7-12.0 [facility] Comment on above: Performed By: #### C BC ####[facility] [address] [place], [place] [address]DrHany Gatica NEUT # 6.0 103/ul Normal 1.4-6.5 [facility] Comment on above: Performed By: #### C BC ####[facility] [address]sp[address]czy[address] [place], [place] [address]Dr. Rasta Gatica Neutrophils/100 WBC (Bld) 62.3 % Normal 43.0-75.0 [facility] Comment on above: Performed By: #### C BC ####[facility] [address]xvw[address] [place], [place] [address]DrHany Gatica Platelet mean volume (Bld) [Entitic vol] 11.4 fL Normal 9.5-13.5 [facility] Comment on above: Performed By: #### C BC ####[facility] N[address]zuysnzaw[address] [place], [place] [address]Dr. Rasta Gatica PLT 264 103/ul Normal 150-450 [facility] Comment on above: Performed By: #### C BC ####[facility] [address] [place] [address]Dr. Rasta Gatica RBC 4.53 106/ul Normal 4.20-5.40 [facility] Comment on above: Performed By: #### C BC ####[facility] [address] [place] [id number]. Rasta Gatica WBC 9.7 103/ul Normal 4.0-11.0 [facility] Comment on above: Performed By: #### C BC ####[facility] [address] [place] [address]Dr. Rasta Gatica GLYCOHEMOGLOBIN A1Con 2021 ADA RECOMMENDATION SEE BELOW Normal [facility] Comment on above: Result Comment: ADA RECOMMENDED LIMIT 4.0 - 6.0 ADA THERAPEUTIC TARGET < 7.0 ACTION SUGGESTED > 7.0 Performed By: #### A 1C #### [facility] [address] [address] [address] Rasta Gatica Glucose [Mass/Vol] 120 mg/dL Normal [facility] Comment on above: Performed By: #### A 1C #### [facility] [address] [address] [address] Rasta Gatica HbA1c (Bld) [Mass fraction] 5.8 % Normal 4.5-6.2 [facility] Comment on above: Performed By: #### A 1C #### [facility] [address] [address] [address] Rasta Gatica LIPID PROFILEon 02-02-2022 CHOL-HDL RATIO NORM SEE BELOW Normal [facility] Comment on above: Result Comment: 3.3 - 4.4 LOW RISK 4.4 - 7.1 AVERAGE RISK 7.1 - 11.0 MODERATE RISK >11.0 HIGH RISK Performed By: #### L IVER, TSH, BMP, LIPID ####[facility] [address] [place] [address]Dr. Rasta Gatica Cholesterol [Mass/Vol] 210 mg/dL Critically high <=200 [facility] Comment on above: Performed By: #### L IVER, TSH, BMP, LIPID ####[facility] [address] [place] [id number]. Karrieroopa Gatica Cholesterol in HDL [Mass/Vol] 61 mg/dL Critically high 40-60 [facility] Comment on above: Performed By: #### L IVER, TSH, BMP, LIPID ####[facility] [address] [place] [id number]. Rasta Gatica Cholesterol in LDL [Mass/Vol] 114.4 mg/dL Normal [facility] Comment on above: Performed By: #### L IVER, TSH, BMP, LIPID ####[facility] [address] [place] [address]Dr. Rasta Gatica Cholesterol.total/C holesterol in HDL [Mass ratio] 3.4 {ratio} Normal [facility] Comment on above: Performed By: #### L IVER, TSH, BMP, LIPID ####[facility] [address] [place] [address]Dr. Rasta Gatica HDL NORMAL > or = 60 mg/dl - LO W CARDIOVASCULAR RISK <40 mg/dl - HIGH CARDIOVASCULAR RISK Normal [facility] Comment on above: Performed By: #### L IVER, TSH, BMP, LIPID ####[facility] [address] [place] [address]Dr. Ratsa Gatica LDL CALC NORMAL SEE BELOW Normal [facility] Comment on above: Result Comment: <100 mg/dl OPTIMAL 100 - 129 mg/dl NEAR OR ABOVE OPTIMAL 130 - 159 mg/dl BORDERLINE HIGH 160 - 189 mg/dl HIGH >190 mg/dl VERY HIGH Performed By: #### L IVER, TSH, BMP, LIPID ####[facility] [address] [place] [address]Dr. Rasta Gatica Triglyceride [Mass/Vol] 173 mg/dL Critically high <=150 [facility] Comment on above: Performed By: #### L IVER, TSH, BMP, LIPID ####[facility] [address] [place] [address]Dr. Rasta Gatica VLDL CALC 34.6 mg/dL Normal [facility] Comment on above: Performed By: #### L IVER, TSH, BMP, LIPID ####[facility] [address] [place] [address]Dr. Rasta Gatica LIVER PROFILEon 02-02-2022 Albumin [Mass/Vol] 3.5 g/dL Normal 3.4-5.0 [facility] Comment on above: Performed By: #### L IVER, TSH, BMP, LIPID ####[facility] [address] [place] [address]Dr. Rasta Gatica Albumin/Globulin [Mass ratio] 1.1 {ratio} Normal [facility] Comment on above: Performed By: #### L IVER, TSH, BMP, LIPID ####[facility] [address]pcvxaefb[address] [place] [address]Dr. Rasta Gatica ALP [Catalytic activity/Vol] 71 U/L Normal 46-116 [facility] Comment on above: Performed By: #### L IVER, TSH, BMP, LIPID ####[facility] [address] [place], [place] [address]Dr. Rasta Gatica ALT [Catalytic activity/Vol] 15 U/L Normal 14-59 [facility] Comment on above: Performed By: #### L IVER, TSH, BMP, LIPID ####[facility] [address]jiwfk[address] [place] [address]Dr. Rasta Gatica AST [Catalytic activity/Vol] 8 U/L Critically low 15-37 [facility] Comment on above: Performed By: #### L IVER, TSH, BMP, LIPID ####[facility] [address] [place], [place] [address]Dr. Rasta Gatica BILI, CONJUGATED <0.1 Normal 0.0-0.2 [facility] Comment on above: Performed By: #### L IVER, TSH, BMP, LIPID ####[facility] [address] [place] [address]Dr. Rasta Gatica Bilirubin [Mass/Vol] 0.1 mg/dL Critically low 0.2-1.0 [facility] Comment on above: Performed By: #### L IVER, TSH, BMP, LIPID ####[facility] Ehkcjxmotb[address] [place] [address]Dr. Rasta Gatica Globulin (S) [Mass/Vol] 3.3 g/dL Normal [facility] Comment on above: Performed By: #### L IVER, TSH, BMP, LIPID ####[facility] [address]vbecbo[address] [place] [address]Dr. Rasta Gatica Protein [Mass/Vol] 6.8 g/dL Normal 6.4-8.2 [facility] Comment on above: Performed By: #### L IVER, TSH, BMP, LIPID ####[facility] [address]kw[address] [place] [address]Dr. Rasta Gatica PROF CHEM 8 (BAS METB)on Anion gap [Moles/Vol] 10.6 mmol/L Normal [facility] Comment on above: Performed By: #### L IVER, TSH, BMP, LIPID ####[facility] [address]sqv[address] [place] [address]Dr. Rasta Gatica Calcium [Mass/Vol] 9.2 mg/dL Normal 8.5-10.1 [facility] Comment on above: Performed By: #### L IVER, TSH, BMP, LIPID ####[facility] [address]js[address] [place] [address]Dr. Rasta Gatica Chloride [Moles/Vol] 106 mmol/L Normal 98-107 [facility] Comment on above: Performed By: #### L IVER, TSH, BMP, LIPID ####[facility] [address]zp[address] [place] [address]Dr. Rasta Gatica CO2 [Moles/Vol] 29.3 mmol/L Normal 21.0-32.0 [facility] Comment on above: Performed By: #### L IVER, TSH, BMP, LIPID ####[facility] [address] [place] [address]Dr. Rasta Gatica Creatinine [Mass/Vol] 0.63 mg/dL Normal 0.55-1.02 [facility] Comment on above: Performed By: #### L IVER, TSH, BMP, LIPID ####[facility] X[address]dz[address] [place] [address]Dr. Rasta Gatica EGFR-AF CYMRO >60 Normal >=60 [facility] Comment on above: Performed By: #### L IVER, TSH, BMP, LIPID ####[facility] [address]za[address] [place] [address]Dr. Rasta Gatica EGFR-NON AF CYMRO >60 Normal >=60 [facility] Comment on above: Performed By: #### L IVER, TSH, BMP, LIPID ####[facility] [address] [place] [address]Dr. Rasta Gatica Glucose [Mass/Vol] 82 mg/dL Normal 74-106 [facility] Comment on above: Performed By: #### L IVER, TSH, BMP, LIPID ####[facility] Jetdgnqlxm[address] [place] [address]Dr. Rasta Gatica Potassium [Moles/Vol] 3.9 mmol/L Normal 3.5-5.1 [facility] Comment on above: Performed By: #### L IVER, TSH, BMP, LIPID ####[facility] [address] [place], [place] [address]Dr. Rasta Gatica Sodium [Moles/Vol] 142 mmol/L Normal 136-145 [facility] Comment on above: Performed By: #### L IVER, TSH, BMP, LIPID ####[facility] [address]wids[address] [place] [address]Dr. Rasta Gatica Urea nitrogen [Mass/Vol] 11.0 mg/dL Normal 7.0-18.0 [facility] Comment on above: Performed By: #### L IVER, TSH, BMP, LIPID ####[facility] [address] [place] [address]Dr. Rasta Gatica Urea nitrogen/Creatinine [Mass ratio] 17.5 mg/mg Normal [facility] Comment on above: Performed By: #### L IVER, TSH, BMP, LIPID ####[facility] [address]oz[address] [place] [address]DrHany Gatica TSHon 02-02-2022 TSH 1.214 uIU/mL Normal 0.358-3.740 [facility] Comment on above: Performed By: #### L IVER, TSH, BMP, LIPID ####[facility] [address] [place], [place] [address]QgDr. Rasta Gatica VITAMIN D 25 OHon 02-02-2022 VIT D 25-OH 28.2 ng/mL Normal [facility] Comment on above: Performed By: #### V ITAD #### [facility] [address] [place], [place] [address] Dr. Rasta Gatica VIT D RANGES SEE BELOW Normal [facility] Comment on above: Result Comment: <20 ng/mL Vit D deficient 20 - <30 ng/mL Vit D insufficient 30 - 100 ng/mL Vit D sufficient >100 ng/mL Potential Toxicity Performed By: #### V ITAD #### [facility] [address] [place], [place] [address] Dr. Rasta Gatica MRI Hand w/o Righton [...] by Nic Duncan on 09/12/2021 1107 Normal [facility] Administrator ED Note-Physicianon 08-12-19 22 ED Note-Physician Basic [...] day(s), # 28 tab(s), Refills(s) 0, Pharmacy: [facility]/pharmacy #[id number], 168, cm, 08/08/21 14:35:00 EDT, Height/Length [...] or concerns. Medicat (more content not included)... [facility] Comment on above: Result Comment: Elec tronically Signed By: Isi Stoll PA-C\.br\Date and Time Signed: 08/08/21 18:06 EDT\.br\Electronically Co-Signed By: Sourav Stinson DO\.br\Date and Time Co-Signed: 08/11/21 07:27 EDT Animal Bite Investigationon 08-08-2021 Animal Bite Investigation [id number]# 1.00CD:127 [facility] Coding Summary.on 08-08-2021 Coding Summary. CD:[id number] G h0bWw+PGhlYWQ+NZ6VSAZ jQ02mgKRnsI3FD5bXDS1T VKBBZVAQZZ6SKA6ysIK1M FsbL4DxtoAe NlkyxVHiLH58TPm3QWZ9o YzaQFrvyZ4ndMCcP0d5Hz HvJB95wP15WQcsLVIhYmD 3LjZpbjsgbWFy Q2owRuYbwUIbBux+PHRhY mxlIHdpZHRoPScxMDAlJy KteQjkQK2aXx9qUMSeCUK vbGxhcHNlOiBj y5mwVBAtRDoiTP4aiEdaX 6NehEJ6ZAEbt5p6Oj35mW I+OUTtUXI4gFsiZCbak62 9TsFwf5pjXTX9 nVZnEIfaJJD6Q58fc0G6B QDgHFKtDNX5bGT2tP1cfU raywkeM2AusYWuJbA7VGM 8lUCuuN7buQde udkkhD6jKtn+W02LJX5US OLSOD2MGxy7A0ErEljrvX I+OW32HBUrER60rCCkaWN fv0hvyOk5WpAm KBMzEZQ2mYavOCgfg0OnX BPsO11vjEImn4Z5MZMrpI mmxMDkMyRysUS8eI1mKFp fezlvj0xlqfer Agnxf7bztb54lS23W86oN SwrUTNfPSA3OLSnZLMtjU qpgs3jiT9mFl2+FEuan7n kr2xqcXj4KkZi JEQglwHadUvrNMG2f5LcN i34C4YbjGqzn4JgWgf5ak 95gSBif9O0sJW8IXwyTEJ beJ4kJVdyRqK3 GUCdTkBorI80mCOqUWpvW a4zcVqkoPqmOZ1vJHIzvu pnKFRmzL5zUUObkDDwdLp qZM5zSHIenafc v133QmIgLSS0RFMbgBGrS 5JcnK6xXtSkRWGiHGMvO1 PqpVDdCFwmJ007MEzkSoA 8LTAohkYlE0Ht EAOgvEmdJjH6n4S6Iv3Aa 8YjplnyQMD3RZhrEYV7Pm KcWvSoXjC0M6UjRtj1FVB rzEdkGH4qV4Qa QXHbyfnimvrbgSP3EVBrH GEcpO40dMIlLYvfYc3zw2 M1l417WKNcOBQhsR27Uc6 udDogMTBwdCBU qC8extxzv5fqtombHuQaB SWaVCd8TQj2SCIvwCmcWh IcDJA5LaF1VUG7cYZwgZ7 qxSxlglgakD2c Oyc+H23ifI8lTGN5OFO6p rruGSSkyaWwOK11HM41I9 RyPjwvdGFibGU+PGRpdiB diQnbSH6rLuCj t3pfc0EbOCntH6WuIFMlW UszSpr0BZHcWUK9oYY0lC 5rTVQmMOvwl4H8zCW8O6Y mtnKhdh9xc7ik JBRrNHomR19ahIQew3J7N HNlmEL9TRUogBscBsYpqI 93Oyc+OYHhlRrlr6VbMks rh2vuf9brnDi8 SvVlJDBnqjDdmJlhIWT0n 4FkFo82U07iAVytTTKcDO WqOASvGGCulXcxyo3hjH5 wIi8+PGNvbCB3 uLK9uO3cGIDrVaT4OAcsP 689WbYlwGUoOntce7vfv6 qlcTb1DnKnZEXqwhUxuDo iWOW3o4TvFf90 E85mXUcqKPQvHKNuAAHqG EPiaLcefl2mqL6lHk8+PC 7pk0myza49yM29iFY+PHR zYII2sOxqNOvr SUVqrS0hOGqgGoX5EBKsJ bIurJ76aJSzXZqmTs8irY vgbSysWJ6bBOLhuhnic70 4IwWjs9mnSYUs hUOlOLcuBRE9X37nc2Y9I DDrKTEzOPD7gJA5vO3ocH lnbjogbGVmdDsgdmVydGl tXErzBMhwM958 IHRvcDsnPlBhdGllbnQgT tXsAKs7Y4WnBju8IHThsK lbZS2zxTOaGOldPd4ffJu uzQohBW4cYUDr enpro937DlKry3dxXDKuc CJuZRvcVZB4Z77of3I2AP YfNLRbHYU3uMU2sB8nsDk nbjogbGVmdDsg xpCjbHleBQhyMDerD962C HRvcDsnPkJpcnRoIERhdG I2NE56VN07gIPqy4I3kYZ 5L0SfMTJuckun dugjqAM7AXPfGGHudJ71T u4uzCkoWf2jQWYwIFF3FO CytZTlU2CqlP3jCbZxOHA gJMLsY9VxxUEk FForS939QQipSiX9BVJxz pNdJ4IeHNEddGbzRjP8f1 I3We2EQ7C3TK16KK96pQB xo7Y8uPE7Z5Hs EFAgcjutnocamGH4KLEnJ AHpcO54Jb4qxRoeEt1fFN KgWNP7UVTbgBKpJ9GcuL5 yOiAjMDAwMDAw F0WhsFYxVIgpL867UMswK sV2DLXpoyYaG2AbCIFyzF egLtQ8z5C9Iq5SKAn4EV5 6YB51iSDre5G9 sLX8D2PoOZIwmxorfgfrp RF5JQKzFNYrdT47Mo6vwQ nhWn3fVCCiRVK0TEZpcEI oY7XhvR3pYiDz JMKsPQNhA2MzkPUoSDtpV 863IOqeGcP2LPIhhuIuV7 ScWZKkkCseQfN4p1U0Bm1 GLAPdUY10DOO9 hWN3JU82QH23N4VtZvgvu GFibGU+PHRhYmxlIHdpZH RoPScxMDAlJyBzdHlsZT0 cXr6jKNRcNRZs jDnpaLBxHcVzq8nrENJcJ ClxCM2lfVbnJ3QjgFO8YL Tba4m5Id42G73fH9YmtNC +TTAkmKP0qWE8 kV4gImAyMdH0CEmcU626O aPabWUtGagba7sqw6ajqN n2XlR1CHZvpbMpcFtrCQR 2y7KiXx78E90l IHdpZHRoPSIxNSUiIHZhb Yohtk9tpX2jHs0+PGNvbC T2hFN7fI3aVsMhBtC2JMz jG513IdRwpUUr Mykds0clf8iylOs3QbLzM OIkeoAwiRzuEWJ2n5FxWd 96G2BooUqhq2EmJka1ac6 8zPEhv3Q9vLM2 U7MdKBMmfaznyRSimLzvB R7gVCXmpvxsXXQboO8jOY VvV0i9RjWwZnE5ODmvI0N vhtU5UFSboJZg CFvuHPB8H13ip6R3WUPkO XDvATW6mTM0gL8kvQvtit ogbGVmdDsgdmVydGljYWw rOBfzA141YVOn xImnZORclE8mBMZuzPLmh PemDQ6fASNccyllWbLTAU LSRTEYXLaRVWFQRN58KO1 2gAYtm8R7cAW3 W2PkKJGhxitioycqyLS5V UHmEXHtdG43fLNlWPrkKk 1dn9M7f198SXCgRDHwvG9 0Up0bqZyyJLAf zUAArT1omhzzz8iybxcbP iJePZOsYRx7JVh3JMUtxA urQwWlTEM1LoL8QKU6hUT doJ9faVdzgtsl jB2gNhq+SAJyBqceSRy2U jwvdGQ+VPDlNOM9jMxhYE kfASCkgR5tPZYvH6o4NuX vLuR6PIjpD9Uk PRLrzpppOl41rU2aAuLhG xO9EFeiO4TehkQ3YQCxuN OfJJotRNJ6E46tr6W4AEW bEQSuSCK3fVB8 xM4eqCscwgsdqFZxqMqul qZhmWriCUyxEQvmI465GW LhyFbqWtF2EYfbRKUmYZ8 8RU26sIHzn2K0 oXB1G1RzBSIdsmvkybyqm XN1OMJlXZGgnK93uPJjBE rvMt0jn3P7b806IIGeTPU xzO24Id6kwOhn ZNJekXGDgJ7fvxaqy7wwg qxjWbVeXTGcGCv6SMf4IO FicLjlHxIvLLU4KyZ1HBG 0jQGasV5ovAwx auzonV7rRln+RmVtYWxlP S85SZ37bBDdf5M7wDA0L6 IsSXGlsiyhriinoPG8XGQ cYHKaqN15wRKg AHcbYo8vu8L2c671NQPuV XWbbX72Tz6vkJzgLTPwiL VVtW9zzkknt7ekmfxtQwW iUPChOVy3FFd8 ZXYerLbuEmFvPUV6XeV0C ZI1vCUptY1duHvhpzvcjC 9wOyc+WY6drdwjuuG6BV9 4TR25M9JmUonq dGFibGU+PHRhYmxlIHdpZ HRoPScxMDAlJyBzdHlsZT 3rZz6kWNOvOZDsaEodwZH pKkLyk9ymZECe IGvzTR3uaBfdW8ClzMO5X IFdb7x6Ps70K74vL0ZzeP A+QRWnuBN0iRK8cU8hGxW xGtQ6TFhtI461 JyWmkNFwIclla0ssy0wyb Ji5NrWoTIIdvhNmpWqmEL O5f8RqSv14O24wMLzgUYE oPSIyMCUiIHZh rElxdw6mbK2hUa3+PGNvb ED4xRR0kP5eCmLqJjO6KT lwQ095AkMihCLsXwhuA22 eS7HiqHZ+PHRy Gwe0XLUmnLbeFV6tuBDjU RdkRh0bLCA0NdVjStCdHD ezY2OyGVOtnnqtmfxhrQS 4RAUkSTZmlW96 Wn3kaEfiXv6oVTCpOOK9I USmoUIfG8VshN0gNsQrUM RdNTMsB8HlpHTcAEjfI19 0QIxoVbO1XLJx svDxG4DtKQZcnYagFqV0d 7H5Vo6VeUxglQBgOQ3wJk NcXFi8Q2OhZnr1DKAroZz rMQ1nfNDbOZws Be6svWkugRwtZD9pJJUhi bhwk583NhGdb1hfWFIgfR KbAImbXEE9F93rx8T1HTV oUDEiHSA4eNN3 eC2ifYjajbiolKDbyGwwt qWtiIizRRxjLVpxC254KV ZflUjfJmPPUva0A2TtRax 1BAVgqUqmUA5p yAXcOKhsMc0ztMoeeOwfH X7dNIZneposm377KsKmh7 ezCNXeqHSqKTapWLI3H29 ap7K6FMAqMTOa ICC5dOW3iW5ldHnouwuse GVmdDsgdmVydGljYWwtYW lyF072IVIsnUgfIv6HTrj 3W0VyMiu6IYIf kJlgLP0ozSUmTNbxBb7tp QvpxSurBJ2sEPLafdhcp3 32HaSuq4cdXHIxtEEzNYe cFHB8T69ib4D8 FOOoYMJeAWT0mBB4vF5vw GlnbjogbGVmdDsgdmVydG arNIvmMDraL067PBFduDp nPlBheWVyOjwv dGQ+ON25km38R2RaRtzbH cu2XLPnGHM7xFH1nR3vET GhQZwkq6J0nAX3H7NxikN oib7ro4tqPBFx ZTog (more content not included)... Normal [facility] Consent for Treatmenton Consent for Treatment [id number]#1 .00CD:127 Normal [facility] Discharge Instructionson Discharge Instructions [id number]# 1.00CD:127 Normal [facility] ED Clinical Summaryon 2021 ED Clinical Summary [address] [address] ED Clinical Summary Person Information Name: BROOKLYNN GTZ[place] Age: 26 Years : 1995 Sex: Female Language: Bermudian PCP: MICHAEL HELMS MD Marital Status: Phone: [phone] Visit Id: Visit Reason: Dog bite: hand; [...] 08/08/2021 15:44:14 08/08/2021 15:44:14 08/08/2021 15:44:14 ADDRESS: [facility] [address] [facility] [id number] PHYS DOC NOTES: MEDICAL INFORMATION: Prescriptions Given: New Medications [id number], [address], [place] [id number], [phone] amoxicillin-clavulana te (Augmentin 875 mg oral tablet) [...] PATIENT EDUCATION INFORMATION: Instructions: Animal Bite, Adult, Hnkd-hy-Xulp Follow up: With: Address: When: MICHAEL HELMS [address] [place], [place] [id number] Business (1) In 3 days 08/11/2021 DIAGNOSIS: 1:Dog bite of middle finger; Bitten by dog, initial encounter Normal [facility] ED Patient Education Noteon 08-08-2021 ED Patient [...] cannot use soap and 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 ? Change your bandage as told [...] bad smell. Medicines ? Take or apply zoal-zux-giusgjo and prescription medicines only as told by [...] 03/25/2006 Document Revised: 03/20/2018 Document Reviewed: 10/03/2017 [employer] Patient Education ? 2019 [employer]. Normal [facility] ED Patient Summaryon 022 ED Patient Summary [place] [id number] Patient Discharge Instructions Person Information Name: BROOKLYNN GTZ Age: 26 Years Arrival Date: 08/08/2021 14:29:26 Discharge Diagnosis: 1:Dog bite of middle finger; Bitten by dog, initial encounter Primary Care Physician: MICHAEL HELMS MD Provider Information Primary Provider: Sourav Stinson DO Advanced Scratch Polisher:None The exam and treatment you received in the Emergency Department were for an urgent problem and are not intended as complete care. It is important that you follow up with a doctor, nurse practitioner, or physician?s welder assistant for ongoing care. If your symptoms [...] With: Address: When: MICHAEL HELMS [address], [place] [id number] Business (1) In 3 days 08/11/2021 In the event that this physician does not participate in your insurance network, please consult with your insurance company to find a nearby participating provider. Patient Education Materials: Animal Bite, Adult, Cozc-su-Vjht A MESSAGE TO ALL PATIENTS REGARDING OPIOIDS PRESCRIPTION OPIOIDS: WHAT YOU NEED TO KNOW Prescription opioids can be used to help relieve auciwbrf-wi-qpzvdc pain and are often prescribed following a [...] struggling with addiction, tell your health care management associate and ask for guidance or call [facility]?S National Helpline at [phone] (more content not included)... Normal [facility] Coding Summary.on 02-24-2021 Coding Summary. CD:[id number] G h0bWw+PGhlYWQ+SU9FXQP mL11xcMZpaR9WD5uUEN7Y EILUTHADRK7RWQ3ghNL6T QauT2IbglXe DhetsIZvFV30BLx5CRS0e DvaAPkkdT9hmRSdO3o9Qt WyTR50bN20OYfzUHBlQwK 3LjZpbjsgbWFy T9maHhQixVRkNzz+PHRhY mxlIHdpZHRoPScxMDAlJy FagXxlJE0sMl8aUGDkKDU vbGxhcHNlOiBj s4sxKCYnNWkxKE3jyHjsV 1SqiXQ1QWGhk5o0Zh30jS I+PDKjBQR9yAjaDCqsw30 4EjUsp1wyGJI8 tFHlYKdsLNQ3G12wx3R4P PIhAJGfISE8qYW3mJ3jgZ pvlqmtM9MgbVMmMmW7HOX 6xRWmlN8imHxu zyiwtG2aIbd+M14CAN7HM UBDUF0YKxz8Z1KeWvtjwE I+LL21ZFEfIA52pDYvyHE vs6kszCo1IsKt NIJoTKH9tVfiLXpnz5DeB TOoA20ctYNvr0S1FKSopG wrbBPvXpMwgDI8iA7oWJo rywdao0esutyq Pkxjn1tqfw85wT34N81pE UgdWWHqZJI4FQPjHPTkaM dtpu8obJ1tBs6+SRqrf2d sw3ulwNx9TeWg OLKyneJhtRufMOQ2a5MgM b71Q0JdfLogt4XvYwz8mx 67hMRpg8S8kNF2KKxoHWZ hpJ7oMQirKaL8 PVXiObNkuE25eXRfBWqmW y8zoImjzDkbEQ4sNUMxfk qlPIWriT9yBEJyeJGzuQc zSP9wMYHtmrux u128CkBoZHN9PMRurNDbR 2XjiA1mFuIqAITbRZHkJ2 PvhRQqONjiZ696QKcyYyL 8YPQyehMdZ1Jv CGZhqBtwArZ6g3V0Au8Gy 7XbbqquPVA5HHbdGDAwAa L3OoSpSiA2L9MnTii8AVE ydAerLL5kY7Ew WZHsodxlwrxinSD2ODClW YQveZ67qHTyAFnaXe2ev6 J5r445HKNdZQLcrT52Ia8 udDogMTBwdCBU hT4szkxcg8vcpmsnMcFaZ GTvBUy3ILb8BXLlsEhbAu MqNKE3SyD8NFK1yBLfmA5 nbNcmnnovcE9n Oyc+I93ecD9bJPO8QOU6y yzeYAAdwfSaQZ45DX85O6 RyPjwvdGFibGU+PGRpdiB yiKuiFN8xCrQl v5xwl4EpHKfrA1XpTOTmL CkwZjm0CDNrYMF7pMD5xF 6pGBPyUWmfm6P9yQM7M6D bnbYhob1ok5wc JYFbXWmdK70qaVDdb2E4U CZaqVT0LUIwyMjhRbHzcF 93Oyc+TNBjuGfre1LvUyp an6fio3fbaDb2 KoAyZDLrflXajTcfRVW5k 9LjMl59C29aYSyrPQMeSW FtVVSnOBExjCqrjw2wwN0 wIi8+PGNvbCB3 vKW5yA4dKVHxCqL6LXwsF 076KqBkjYAdOkxyb8jve7 udaJd3NgXqNLHsovOnzJd eCOH8e3MqPh36 F93uRDepTUGdWSVyPPXeB CRynXlbfa3opW4wSb3+PC 8ld5xvnn01cN72mDM+PHR zIJS8vUvjTSac PBBfjG4vMVshOuI7GGQbA pKaeE19oHJvCTizXv5caD jzcGjbEG3zJMDkqgesy21 3EnZqj7jsSQQz aGIqHSnsCJZ2J38pi7R3P IEaZBXwUUW7iFU9yZ7cmJ lnbjogbGVmdDsgdmVydGl rRSxrIUlhB926 IHRvcDsnPlBhdGllbnQgT xFbOTv2M7GmLcq0UZZrpQ mbBK8rmTAtLXoqWr1ztXk uaNydNJ3wLZQe xlizs239EpQez4qfYHJop KYuZZjuVQR8J48ol2B2LR XhMDCiJPI7dPB6zJ6btAc nbjogbGVmdDsg cwHglSsxRTvyLQfjM050K HRvcDsnPkJpcnRoIERhdG L5LL70QB42vJAwx0W6tEY 6E8QmAMSeyumq eqgwjKL8PSObHDZqyU74U n2pcKnyEx0sZWZpSAU4DM FwoVYuJ2LaeO9lSxNhFEN hOOOaN6BscMDt VYmnN483SFtiQfI3ZYPjy jSgW9PuAWOpmRclUpJ1i9 D8Mt0WM0J0YS22XB08lAT fe7I1fOI7O4Pd NVSzqqmuqijwyVU1LNUyV BLhyL22Qq3wjAceTq3iDN HlAOQ0ULEmyVJhW9YttM7 yOiAjMDAwMDAw T0IawKLpIQtwW648DJddZ vM7ZQPcobGqN0UuPTKozP ksKmX5n5I9Yl2MEQu0ZJ9 9WP44qDFvc8Z5 ePQ5V6UiSVEpjhnaebsve JN9BYVcBFVjwM20Ki7puE frJs3zUJXjNJJ6XWAdyJC oM9PmfR4gKaVp BBNdIOUsW7RefLRwJFjrR 550ONkcKiC5ACFpvsUtH9 TxNMKjkZsbCdU4w5K4Zj4 GLACsVC91PUU7 hCO4IM34GW83W7JwIjbzx GFibGU+PHRhYmxlIHdpZH RoPScxMDAlJyBzdHlsZT0 vHs8bODVqDBFv xHntmTRaChBcu0nfBBSkE QqaIK9wqKxhJ7UntRG1MM Jfi9n7Sm09I52vD6GpdFI +WGTmxSU5yXT2 yN4zKxXuGjV1RDhdX932G eSufEDdAnnyc0tgq8xrcS l7WaN7TKCxswRpyUhzCJM 8l2ZwEg76J09b IHdpZHRoPSIxNSUiIHZhb Flnfx9rnQ0zSl1+PGNvbC Q3fVB3oO6hYnOeAbY8XMr mD394JbYieTCd Ommnt1ogn0rpsMl2TmKaJ LAaztAxlVdnKHC6l9BwXr 76D7HxmLzte9UgXql3xi0 1aHTsu4R1aVX9 A4DwEPDebbrdiLJvkReoF R4iVZUhgnteXTCwhH3pYI GqN2k2KfOqIhP5JLnfE1A xsmY8GMMozGGk BCpnUHC4Z19jy8G3EVQnF MFdPPJ1rHF6yK3wkQnyvu ogbGVmdDsgdmVydGljYWw xLAakK018VCEc eQhbSOKigI3qGLSxzIAkb HrlCC9nQOCnjmyyUbCNFT BZFYWCZMsAGEHDMH61TA4 6eWXtt8Q6bGE4 P1HeKRYctjkxaqgluVC0X GMkUPQmiP80zOVlGNfwOv 4xv3B0y672KRKyGDSgnJ6 3Rj9ljHsiRREj uWDFsW4wxigcn1bepxxlA lNtATCoPTr9KJr9NMJnrT ctKvQrYOI7KvH9MYN7rDE fpO7apKoeybhr sM8vSep+SYLpJtgiAMl0Q jwvdGQ+EFEbFXE1sWgpAX ipMGTjvY2oQIOyC3g3NqW sCyL8QGywT7Rt NJBpquzpZn30pZ9uCtCvS uJ7LIdeY2SdexL4HSSnvC VuXRgvMRJ4L95je6A7XHG rYTFdWXN5fUQ4 zK0adPohxiakgGYkmYstv iCczNjyVEndDAntF002GV HceEyhVaC3CQarHHOqHZ7 5PI50vUYww9Y8 aHD0D4AsYIXjuljmwhpfd UB5HGKlODPiiP12cPFfPH wvPm5qv8O6s478WMAgKGA kgV92Pp5yvUun DJIogCVSmE2bmctck8iap dsoPiIcRCVgLTb8TGr6IM VsfKxwInMsTLZ9AkG0VAT 1oINoqF1tfVce urgzhL2vZgb+RmVtYWxlP P20PS76bKJcz8Q5mEJ7I2 MuTKTwiqavgzeilOJ6XKR gSCUinL21qFFy SHeaDd0da6E2i678IUDtO GAqbX56Ar8egZqbBFTiwT UOwE8kvcsrq2xxecayZiL rEUZwOGx1QRc9 YEFmdCeuLxCtACD1WrI8N BE6dSUlsR0lySnrxwihhH 9wOyc+VM2poczuerW9RB2 4NG29A0OtYkgy dGFibGU+PHRhYmxlIHdpZ HRoPScxMDAlJyBzdHlsZT 4lAn0lPKAjANHnkBrweWH bJqXgo2jhBSSk CRrmUO4pnHbvY5TjrBR5Y ZUnc2a4Ag27O41nF2UlwL A+QXErdFC9gWD1xV8lFmO oOpY3WVlpC793 WqNmpBPrQvyyx9xst9ssg Aq1JgFzQDSwpnTrtUpvPE L4c5GiXk27E85pDQlvTNY oPSIyMCUiIHZh yXthsm7lzF8cPy4+PGNvb ZZ9mME9rP8bBiVdKlL0HE bhN051JnWumKNsWgycM18 eU0AkjYW+PHRy Jgn8YNYknSkdWN8svNVbB QbdCd6uEXB3BsVoIyNrTP rzI9FtMSVjebcauipikZZ 1HGUpNZTpzG80 Xe4wgObcEw6mSRTxZXP0P LPklASjI5CivY9lDaRaSS QyLCLyY3EfuYQjFAwnR81 5ATtpRuS3DIQb nvLlM1ZnBHFxeRysQmD5v 4T1Lg5CiYjcgHDgSQ3aKt AuMJh7Q5QcFjl5JHOyhOo fCG0hgZIhATuv Pw1yoRrpoHicPW7yRKKiv lxyg485EtVee4mkVYMspJ PcRCpiPYO8M67be9T6DEK xYJInMXN7xMH8 kM0gkRmtenrwjZGdoUqso rRhgEwdKFumCIllI190NX FjdKddDbGBKii9P5WwPiu 2FTUbwQwfNR8r yQScFHbhSm4pwRvaqAiuH J6vWKArwnwys465IpDrt4 ppBUKymYMkGAwbVBZ8L49 ji2K8MDBlZFRb HQT4kVG5kN0irTahhfkho GVmdDsgdmVydGljYWwtYW sgX146RRRtjDljZv6JJeu 0W7WeMau6XXFx iNdnBW0fqJKsLGuxEq1wp TmdnLwlAU6eIYBvcidck9 77NcBsh4plUXJtvRAtJPx jVHK3A80sg5I1 EYYiHFCsOIU0dPO3sM2xd GlnbjogbGVmdDsgdmVydG jdLNlhPQiyQ855DXMttBb nPlBheWVyOjwv dGQ+CU76co21G1BuDtgmF dc4WKRvYWP8eKZ0gK6xNG JsIIyjl0G2cYP6G7QfkvW rpu4ad1kdAGIy ZTog (more content not included)... Normal [facility] .Manual Abson 02-23-2021 Basophils/Leukocyte s Manual cnt (Bld) [Pure # fraction] 0.0 E9/L Normal 0.0-0.2 [facility] Comment on above: Performed By: #### 2 [id number], [id number], [id number], [id number], [id number], [id number] ####[facility] [address] [place] [address] Eosinophils/Leukocy kenyon Manual cnt (Bld) [Pure # fraction] 0.0 E9/L Normal 0.0-0.5 [facility] Comment on above: Performed By: #### 2 [id number], [id number], [id number], [id number], [id number], [id number] ####[facility] [address] [place] [address] Lymphocytes/Leukocy kenyon Manual cnt (Bld) [Pure # fraction] 1.8 E9/L Normal 1.0-4.0 [facility] Comment on above: Performed By: #### 2 385195, [id number], 79601871, 03458884, 1275348, 7781281 ####[facility] [address] [place] [address] Monocytes/Leukocyte s Manual cnt (Bld) [Pure # fraction] 0.3 E9/L Normal 0.2-1.0 [facility] Comment on above: Performed By: #### 2 266974, [id number], 82930953, [id number], [id number], 1120162 ####[facility] [address] [place] [address] Neutrophils/Leukocy kenyon Auto (Bld) [Pure # fraction] 1.7 E9/L Low 2.0-7.5 [facility] Comment on above: Performed By: #### 2 461454, [id number], 91024617, 70343083, 1928429, 1929330 ####[facility] [address] [place] [address] BMPon 02-23-2021 Creatinine [Mass/Vol] 0.7 mg/dL Normal 0.5-1.3 [facility] Comment on above: Performed By: #### 2 000431, [id number], [id number], 95958001, 3780222, 7348472 ####[facility] [address] [place] [address] Urea nitrogen [Mass/Vol] 7 mg/dL Normal 5-21 [facility] Comment on above: Performed By: #### 2 704823, [id number], 10335679, 42966856, 6864827, 6365343 ####[facility] [address] [place] [address] Urea nitrogen/Creatinine [Mass ratio] 10 No Units Normal 10-20 [facility] Comment on above: Performed By: #### 2 592968, [id number], 92180565, 09714899, 6284139, 6946638 ####[facility] [address] [place] [address] Anion gap [Moles/Vol] 13 mmol/L Normal 6-16 [facility] Comment on above: Performed By: #### 2 369934, 70919817, 86920769, 95639610, 6303449, 1924235 ####[facility] [address] [place] [address] Calcium [Mass/Vol] 9.0 mg/dL Normal 8.9-11.1 [facility] Comment on above: Performed By: #### 2 925125, 70246274, 91720353, 36256500, 5435535, 9927314 ####[facility] [address] [place] [address] Chloride [Moles/Vol] 103 mmol/L Normal 101-111 [facility] Comment on above: Performed By: #### 2 105727, [id number], 43560084, 78886725, 4837065, 0215611 ####[facility] [address] [place] [address] CO2 [Moles/Vol] 22 mmol/L Normal 21-31 [facility] Comment on above: Performed By: #### 2 004809, [id number], 69112573, 21106592, 8684204, 1357109 ####[facility] [address] [place] [address] Glucose [Mass/Vol] 129 mg/dL Normal 55-199 [facility] Comment on above: Result Comment: If t his glucose result represents a fasting glucose, interpretation should refer to the following reference range: 55-99 mg/dL Performed By: #### 2 390695, 08600657, 41860653, 10349533, 9703910, 3447416 ####[facility] [address] [place] [address] Potassium [Moles/Vol] 3.3 mmol/L Low 3.5-5.3 [facility] Comment on above: Performed By: #### 2 342095, 39058888, 46950239, 01445703, 5442048, 7105176 ####[facility] [address] [place] [address] Sodium [Moles/Vol] 135 mmol/L Normal 135-145 [facility] Comment on above: Performed By: #### 2 473376, 42318742, 16971115, 64314020, 1152776, 7064673 ####[address] [place] [address] CBC w/ Auto Diffon Erythrocyte distribution width (RBC) [Ratio] 13.5 % Normal 10.9-14.2 [facility] Comment on above: Performed By: #### 2 399573, 03172288, 31079546, 73922254, 8268132, 9872115 ####[address] [place] [address] Hematocrit (Bld) [Volume fraction] 37.1 % Normal 34.0-46.0 [facility] Comment on above: Performed By: #### 2 970183, 32166265, 37181502, 69749231, 3146154, 6311026 ####[address] [place] [address] Hemoglobin (Bld) [Mass/Vol] 12.5 g/dL Normal 12.0-16.0 [facility] Comment on above: Performed By: #### 2 977869, 76022177, 01545632, 75898208, 0943877, 8217419 ####[facility] [address] [place] [address] MCH (RBC) [Entitic mass] 29.4 pg Normal 27.0-34.0 [facility] Comment on above: Performed By: #### 2 092564, 73780161, 60538661, 82356265, 3314544, 4833268 ####[facility] [address] [place] [address] MCHC (RBC) [Mass/Vol] 33.6 g/dL Normal 31.4-36.0 [facility] Comment on above: Performed By: #### 2 985826, 64645753, 99648626, 73555221, 2841115, 3836121 ####[address] [address] MCV (RBC) [Entitic vol] 87.4 fL Normal 80.0-100.0 [facility] Comment on above: Performed By: #### 2 675528, 00629716, 88751494, 75707413, 6789743, 9845725 ####[address] Platelet mean volume (Bld) [Entitic vol] 9.4 fL Normal 6.4-10.8 [facility] Comment on above: Performed By: #### 2 185849, 24605753, 10910100, 26547825, 6259963, 5848346 ####[address] [address] Platelets (Bld) [#/Vol] 208.0 E9/L Normal 150.0-500.0 [facility] Comment on above: Performed By: #### 2 279389, 67217280, 25649361, 15700075, 0256205, 0315184 ####[address] RBC (Bld) [#/Vol] 4.2 E12/L Low 4.3-5.9 [facility] Comment on above: Performed By: #### 2 488068, 01098535, 47080839, 57152229, 5912107, 1264322 ####[address] [address] WBC corrected for nucl RBC Auto (Bld) [#/Vol] 3.8 E9/L Low 4.0-11.0 [facility] Comment on above: Performed By: #### 2 933675, 49802255, 26947613, 72586094, 3940061, 7848059 ####[facility] [address] [place] [address] Consent for Treatmenton 02-06 Consent for Treatment [id number] .[id number]:127 Normal [facility] Discharge Instructionson Discharge Instructions [id number]:127 Normal [facility] ED Clinical Summaryon 2020 ED Clinical Summary [address] [address] ED Clinical Summary Person Information Name: BROOKLYNN GTZ [facility] Age: 26 Years : 1995 Sex: Female Language: Bermudian PCP: MICHAEL HELMS MD Marital Status: Phone: [phone] Visit Id: Visit Reason: Shortness of breath; [...] 15:23:48 02/23/2021 15:23:48 ADDRESS: [address] [place] [id number] PHYS DOC NOTES: MEDICAL INFORMATION: Prescriptions Given: [...] Follow up: With: Address: When: MICHAEL HELMS [address] [place] [address] Business (1) In 3 days 02/26/2021 DIAGNOSIS: 1:Vaccine reaction Normal [facility] ED Note-Physicianon 02-24-20 ED Note-Physician Basic Information [...] MICHAEL HELMS In 3 days 02/26/[address] [place] [phone] Business (1) Additional Instructions: Patient Education Post-Injection Inflammatory Reaction Attestation Patient seen and evaluated by the physician welder assistant. Attending physician was present in the emergency department and supervised care. This report was transcribed using voice recognition software. Every effort was made to ensure accuracy, however, inadvertently computerized boilermaker mechanic mistakes may be present. Appropriate healthcare PPE [...] % (02/23/21 (more content not included)... Normal [facility] Comment on above: Result Comment: Elec tronically [...] a physical exam. During the exam, a nikolai may be drawn around the injection site. The nikolai helps to show whether redness in the area is spreading. How is this treated? Treatment for this condition depends on what caused the reaction and how severe the reaction is. Treatment may include: ? Putting an ice pack over the injection site. ? Taking a nonsteroidal anti-inflammatory drug (NSAID) to lessen swelling and itching. ? Taking antibiotic medicine. ? Taking tywr-cny-fjkzxif pain medicine. If the reaction affects a joint, you may also need to rest the joint for a while. Follow these instructions at home: Medicines ? If you were prescribed antibiotic medicine, take or apply it as told by your health care provider. Do not stop taking or applying the antibiotic even if you start to feel better. ? Take yjtw-wew-egycgfl and prescription medicines only as told by [...] Reviewed: 03/02/2019 Elsevier Patient Education ? 2019 [employer] Normal [facility] ED Patient Summaryon 021 ED Patient Summary [id number] Patient Discharge Instructions Person Information Name: BROOKLYNN GTZ Age: 26 Years Arrival Date: 02/23/2021 12:58:05 Discharge Diagnosis: 1:Vaccine reaction Primary Care Physician: MICHAEL HELMS MD Provider Information Primary Provider: Julee Herrera M.D. Advanced Scratch Polisher:Robert Urena PA-C The exam and treatment you received in the Emergency Department were for an urgent problem and are not intended as complete care. It is important that you follow up with a doctor, nurse practitioner, or physician?s welder assistant for ongoing care. If your symptoms [...] Follow-up Instructions: With: Address: When: MICHAEL HELMS [address] [place] [address] Business (1) In 3 days 02/26/2021 In the event that this physician does not participate in your insurance network, please consult with your insurance company to find a nearby participating provider. Patient Education Materials: Post-Injection Inflammatory Reaction A MESSAGE TO ALL PATIENTS REGARDING OPIOIDS PRESCRIPTION OPIOIDS: WHAT YOU NEED TO KNOW Prescription opioids can be used to help relieve lmmnadru-nk-gtbtyt pain and are often prescribed following a [...] struggling with addiction, tell your health care management associate and ask for guidance or call SAMHSA?S National Helpline at 4-646-167-XVDO. (more content not included)... Normal [facility] Manual Diffon 02-23-2021 Band form neutrophils/100 WBC (Bld) 6 % Normal 0-10 [facility] Comment on above: Order Comment: Order Added by Discern Expert. Performed By: #### 2 382614, 99937989, 77485327, 03119427, 3827340, 1033759 ####[facility] [address] [place] [address] Basophils/100 WBC (Bld) 0 % Normal 0-2 [facility] Comment on above: Order Comment: Order Added by Discern Expert. Performed By: #### 2 840538, 27768338, 68321496, 81493858, 2746977, 8389249 ####[facility] [address] [place] [address] Eosinophils/100 WBC (Bld) 1 % Normal 0-8 [facility] Comment on above: Order Comment: Order Added by Mike Expert. Performed By: #### 2 170314, 00248214, 70042738, 72237975, 2829562, 9308882 ####[facility] [address] [place] [address] Lymphocytes/100 WBC (Bld) 44 % Normal 14-50 [facility] Comment on above: Order Comment: Order Added by Mike Expert. Performed By: #### 2 802949, 36992202, 88075622, 36891726, 6648348, 3849283 ####[facility] [address] [place] [address] Monocytes/100 WBC (Bld) 7 % Normal 4-14 [facility] Comment on above: Order Comment: Order Added by Discern Expert. Performed By: #### 2 562048, 23295782, 26740683, 58972536, 4478009, 6737817 ####[facility] [address] [place] [address] Morphology Mateusz (Bld) [Interp] Normal Normal [facility] Comment on above: Order Comment: Order Added by Mike Expert. Performed By: #### 2 352079, 85668345, 80264095, 95767999, 5872879, 2112778 ####[facility] [address] [place] [address] Segmented neutrophils/100 WBC (Bld) 39 % Normal 36-75 [facility] Comment on above: Order Comment: Order Added by Discern Expert. Performed By: #### 2 438935, 61160590, 68253966, 23196845, 7679841, 2736024 ####[facility] [address] [place] [address] Variant lymphocytes LM Ql (Bld) 3 % Invalid Interpretation Code [facility] Comment on above: Order Comment: Order Added by Discern Expert. Performed By: #### 2 557190, 53607296, 25586709, 78594202, 1380425, 4769276 ####[facility] [address] [place] [address] Prescriptions/Work Noteson 1 04-25-2020 Prescriptions/Work Notes [id number]:127 Normal [facility] Troponin 0 Hr.on 02-23-2021 Troponin I.cardiac [Mass/Vol] 2.30 pg/mL Low 10.10-27.10 [facility] Comment on above: Result Comment: The 95% CI (Confidence Interval) PPV (Positive Predictive Value) for myocardial infarction in females is 38 pg/mL, in males 51 pg/mL. The results should be used in conjunction with clinical conditions of myocardial infarction. (Access High Sensitivity Troponin I Instructions For Use, Emre Hiren, November 2017) Performed By: #### 2 093018, 56174349, 42471971, 21912720, 2976592, 8570664 ####[facility] [address] [place] [address] XR Chest Single Viewon 02-23 XR Chest [...] Signature): 02/23/2021 2:40 pm Signed by: Ramírez Mckoen MD, V. Transcribed by: KEMAR Technologist: DYAN Normal [facility] eGFRon 02-23-2021 GFR/1.73 sq M.predicted among blacks MDRD (S/P/Bld) [Vol rate/Area] mL/min/{1.73_m2} Normal >=59 [facility] Comment on above: Order Comment: Order added by Discern Expert. Result Comment: eGFR is race adjusted. AA=. Performed By: #### 2 330559, 72121886, 40763442, 91786165, 3918513, 9322306 ####[facility] [address] [place] [address] GFR/1.73 sq M.predicted among non-blacks MDRD (S/P/Bld) [Vol rate/Area] mL/min/{1.73_m2} Normal >=59 [facility] Comment on above: Order Comment: Order added by Discern Expert. Result Comment: [employer] jorden kidney disease could be indicated at eGFR's of less than 60 mL/min/1.73m2. Kidney failure is indicated at less than 15 mL/min/1.73m2. Performed By: #### 2 741676, 73707055, 65904445, 76238786, 3455221, 8840443 ####[facility] [address] [place] [address] Ambulatory Clinical Summaryo n 10-14-2020 Ambulatory Clinical Summary {[id number]}CD:[id number] Normal [facility] Vital Signs Date Time Vital Sign Value Performing Clinician Facility 06-22-2022 09:21-0400 Body height 167.6 cm ANTELMO Bills MD Work Phone: [facility] 06-22-2022 09:21-0400 Body weight 112.49 kg ANTELMO Bills MD Work Phone: [facility] 08-08-2021 14:31-0400 Body temperature 98.24 [degF] Sourav Stinson [facility] 08-08-2021 14:31-0400 Diastolic blood pressure 97 mm[Hg] Sourav Stinson [facility] 08-08-2021 14:31-0400 Heart rate 94 /min Sourav Stinson [facility] 08-08-2021 14:31-0400 Respiratory rate 18 /min Sourav Stinson [facility] 08-08-2021 14:31-0400 SaO2% (BldA) [Mass fraction] 98 % Sourav Stinson [facility] 08-08-2021 14:31-0400 Systolic blood pressure 137 mm[Hg] Souarv Stinson [facility] Encounters Encounter Date Encounter Type Care Provider Facility Start: 09-09-2023 End: 09-09-2023 ambulatory ENIO CIFUENTES Not Available Start: 08-12-2023 End: 08-12-2023 ambulatory JULIO PULIDO Not Available Start: 08-07-2023 End: 08-07-2023 ambulatory CELESTE ORVILLE Not Available Start: 07-11-2023 End: 07-11-2023 ambulatory MICHAEL HELMS Not Available Start: 06-19-2023 End: 06-19-2023 ambulatory CELESTE [place] Not Available Start: 06-13-2023 End: 06-13-2023 ambulatory CELESTE [place] Not Available Start: 03-05-2023 End: 03-05-2023 ambulatory CELESTE [place] Not Available Start: 08-14-2022 Encounter for genera l adult medical examination without abnormal findings DR MICHAEL HELMS [facility] Start: 08-07-2022 End: 08-08-[address] MICHAEL HELMS Facility:[facility] Start: 08-07-2022 End: 08-08-2022 Encounter for general adult medical examination without abnormal findings DR MICHAEL HELMS Facility:[facility] Start: 06-22-2022 End: 06-22-2022 Patient encounter procedure J Yakov Bills MD Work Phone: Plastic Surgery Comment on above: OPENED IN ERROR (Jeannie santos Dx) Start: 06-14-2022 End: 06-14-2022 ambulatory SUMMER LEON Facility:[facility] Start: 02-02-2022 End: 02-03-[address] MICHAEL HELMS Facility:[facility] Start: 01-31-2022 End: 01-31-[address] CELESTE JACINTO . Facility:[facility] Start: 08-23-2021 End: 08-24-[address] MICHAEL HELMS Facility:[facility] Start: 08-08-2021 End: 08-08-2021 Emergency department patient visit Sourav Stinson [facility] Procedures Date Procedure Procedure Detail Performing Clinician Start: 01-27-2015 excision of pilar [address] - local Sourav Stinson Lithotripsy Sourav Stinson Plan of Treatment Date Care Activity Detail Author Start: 04-08-2022 DEPRESSION ASSESSMENT DEPRESSION ASS ESSMENT [facility] Start: 12-07-2021 Influenza vaccination INFLUENZA (#1) [facility] Start: 04-18-2021 COVID-19 VACCINE (2 - Booster for Vinny series) COVID-19 VACCINE (2 - Booster for Vinny series) [facility] Start: 02-03-2017 PAP TESTING PAP TESTING [facility] Start: 02-03-2015 Urine microalbumin profile DTAP,TDAP ,TD (1 - Tdap) [facility] Start: 02-03-2014 HEPATITIS C SCREENING HEPATITIS C SC REENING [facility] Start: 02-03-2014 HIV SCREENING HIV SCREENING [facility] Start: 02-03-2010 PEDS TO ADULT TRANSI TION ANNUAL ASSESSMENT PEDS TO ADULT TRANSITION ANNUAL ASSESSMENT [facility] Start: 2008 PEDS TO ADULT TRANSI TION INITIAL DISCUSSION PEDS TO ADULT TRANSITION INITIAL DISCUSSION [facility] Start: 02-03-2007 HPV VACCINE (1 - 2-d ose series) HPV VACCINE (1 - 2-dose series) [facility] Start: 1996 HEPATITIS B (1 of 3 - 3-dose series) HEPATITIS B (1 of 3 - 3-dose series) [facility] Payers Date Payer Category Payer Unknown [id number] 2.16.84 [id number] 1995 Unknown [id number] 2.16.84 [id number] 1995 Unknown [id number] 2.16.84 [id number] 1996 Unknown [id number] 2.16.84 [id number] 1996 Unknown [id number] 2.16.84 [id number] 1996 Unknown [id number] 2.16.84 [id number] 1996 Unknown [id number] 2.16.84 [id number] 1996 Unknown [id number] 2.16.84 [id number] 1996 Unknown [id number] 2.16.84 [id number] 1996 Unknown [id number] 2.16.84 [id number] 1996 Unknown [id number] 2.16.84 [id number] 1996 Unknown [id number] 2.16.840 .[id number] 1958 Private Health Insurance [id number] 1958 Unknown [id number] Social History Date Type Detail Facility Start: 10-11-2018 End: 06-22-2022 Tobacco smoking status Never smoked tobacco (finding) [facility] Sex Assigned At Female [facility] Start: 06-22-2022 Tobacco use and exposure Smokeless tobacco non-user [facility] Start: 1995 Sex Assigned At Not on file [facility] History of Present illness Narrative 06-22-2022 Raya Brooks RN - 06/22/2022 9:18 AM EDT Note Date & Type Note Facility 06-22-2022 History of Presen t illness Narrative OPENED IN ERROR documented in this encounter [facility] Clinical Note 08-23-2021 Note Date & Type [...] authenticated by: CARMEN SOLORIO Date: 2021-08-23 14:56 [facility] Discharge instructions 08-08-2021 Note Date & Type Note Facility 08-08-2021 Hospital Discharg e instructions Patient Education 08/08/2021 15:44:15 Animal Bite, Adult, Afxf-[facility] Animal Bite, Adult Animal bite wounds can [...] cannot use soap and 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 ?Change your bandage as told by [...] a bad smell. Medicines Take or apply zbwa-twz-qrbkpeh and prescription medicines only as told by [...] 03/20/2018 Document Reviewed: 10/03/2017 Elsevier Patient Education 2020 [employer]. Follow Up Care 08/08/2021 14:30:18 With:MICHAEL HELMS Address: [address] [place] [address] Business (1) When:08/11/2021 15:01:11 [facility] Evaluation + Plan note Note Date & Type Note Facility Evaluation + Plan note No data available for this section [facility] Evaluation note Note Date & Type Note Facility Evaluation note Diagnosis OPENED IN ERROR- Primary To allow closing an encounter opened in error (used in SmartSet) documented in this encounter [facility] Summary Purpose Family History No Family History Records FoundNo Family History Records FoundNo Family History Records FoundNo Family History Records Found Advance Directives No Advanced Directives Records FoundNo Advanced Directives Records FoundNo Advanced Directives Records FoundNo Advanced Directives Records Found Additional Source Comments INFORMATION SOURCE (unrecogn ized section and content) DATE CREATED AUTHOR 08/12/2021 [facility] DATE CREATED AUTHOR AUTHOR'S ORGANIZ ATION 09/12/2021 [facility] dical Specialist DATE CREATED AUTHOR AUTHOR'S ORGANIZ ATION 08/15/2022 [facility] DATE CREATED AUTHOR AUTHOR'S ORGANIZ ATION 09/10/2023 [facility] dical Specialists EPIC Source Comments (unrecognize d section and content) In the event this informatio n is protected by the Federal Confidentiality of Alcohol and Drug Abuse Patient Records regulations: The Federal rules restrict any use of the information to criminally investigate or prosecute any alcohol or drug abuse patient.[facility] Reason for Visit (unrecogniz ed section and content) Reason Comments Opened In Error Care Teams (unrecognized sec tion and content) Senior Hydrogeologist Relationship Specialty Start Date End Date Michael Helms [address] [place] [address] [phone] (work) PCP - General Family Medicine 06/08/22 FOR [...] BE BASED ON THE PRIMARY CLINICAL RECORDS. [employer] [facility]. provides no warranty or guarantee of the accuracy or completeness of information in this document.
== END 2023-10-25 08:58 | disposition home or self-care (01) ==
LOC: NOMS 08:57
PROVIDERS: PCP Family Medicine; Visit Provider Obstetrics & Gynecology
DX: Z34.91 Encounter for supervision of normal pregnancy, unspecified, first trimester (principal); Z3A.01 Less than 8 weeks gestation of pregnancy; N92.6 Irregular menstruation, unspecified
CPT/HCPCS: 76817

== ENCOUNTER 2023-12-12 16:01 | Outpatient (OUT) | payer OTHER, SELFPAY ==
--- OUTSIDE RECORDS SUMMARY | 2023-12-12 16:15 | XMS_ITS | CCD ---
Author Organization [facility] Care Team Providers Care Master Printer Name Role Phone MICHAEL HELMS Primary Care Physician Michael Helms Primary Care Provider [phone] SCOOTER, DR MICHAEL Camejo Admitting Unavailable NADERER, DR MICHAEL Camejo Attending Unavailable NADERER, DR MICHAEL Camejo Consulting Unavailable NADERER, DR MICHAEL Camejo Primary Care Unavailable EDWARD, SUMMER Attending Unavailable EDWARD, SUMMER Admitting Unavailable GRECHNY ., PEDRO BAINS Consulting Unavailabl e SCOOTER, [...] Unavailable NADERER, DR MICHAEL Camejo Consulting Unavailable ORVILLECELESTE SCHERER Attending Unavailable ORVILLE, CELESTE Attending Unavailable NADERER, MICHAEL Attending Unavailable ORVILLECELESTE Attending Unavailable ORVILLE, CELESTE Attending Unavailable TESS, JULIO Attending Unavailable ESAU, ENIO Attending Unavailable ORVILLE, CELESTE Attending Unavailable Medications Current Medications Medication Drug Class(es) Dates Sig (Normalized) Sig (Original) Aimovig SureClick (1 source) Start: 10-12-19 Aimovig SureClick SubCutaneous, qMonth, Refills(s) 0 Start Date: 10/11/18 Status: Ordered amoxicillin 875 mg / clavulanate 125 mg oral tablet (1 source) Penicillin-class Antibacterial Start: 08-09-19 End: 08-23-19 take 1 tablet by mouth every twelve hours Augmentin 875 mg oral tablet = 1 tab(s), Oral, q12hr, X 14 day(s), # 28 tab(s), Refills(s) 0, Pharmacy: [facility]/pharmacy #[id number], 168, cm, 08/08/21 14:35:00 EDT, [...] current use of drug therapy; Translations: [Other long term care social worker (current) drug therapy] Episodic Other aftercare (1 source) Other long term care social worker (current) drug therapy; Translations: [OTH SILHOUETTE ARTIST CURRENT DRUG THERAPY] Onset: 06-18-2022 Episodic Other [...] 08-07-2022 BASO # 0.1 103/ul Normal 0.0-0.1 [facility] Comment on above: Performed By: #### C BC ####[facility] [address] [place], [place] [address]DrHany Gatica Basophils/100 WBC (Bld) 0.4 % Normal 0.2-2.0 [facility] Comment on above: Performed By: #### C BC ####[facility] F[address] [place], [place] [address]DrHany Gatica EO # 0.2 103/ul Normal 0.0-0.7 [facility] Comment on above: Performed By: #### C BC ####[facility] [address] [place], [place] [address]DrHany Gatica Eosinophils/100 WBC (Bld) 1.3 % Normal 0.9-7.0 [facility] Comment on above: Performed By: #### C BC ####[facility] Vrozpxring[address] [place], [place] [address]DrHany Gatica Erythrocyte distribution width (RBC) [Ratio] 12.7 % Normal 11.0-15.0 [facility] Comment on above: Performed By: #### C BC ####[facility] Qtltoyhxci[address] [place], [place] [address]Dr. Yiroopa Gatica Hematocrit (Bld) [Volume fraction] 40.3 % Normal 36.0-48.0 [facility] Comment on above: Performed By: #### C BC ####[facility] [address] [place] [address]Dr. Karrieroopa Gatica Hemoglobin (Bld) [Mass/Vol] 13.1 g/dL Normal 12.0-16.0 [facility] Comment on above: Performed By: #### C BC ####[facility] [address] [place], [place] [address]Dr. Rasta Gatica IG # 0.03 10e3/ul Normal 0.00-0.03 [facility] Comment on above: Performed By: #### C BC ####[facility] H[address] [place], [place] [address]Dr. Rasta Gatica IG % 0.3 % Normal 0.0-0.5 [facility] Comment on above: Performed By: #### C BC ####[facility] Y[address] [place], [place] [address]Dr. Rasta Gatica LYMPH # 2.9 103/ul Normal 1.2-3.8 [facility] Comment on above: Performed By: #### C BC ####[facility] Udtpe[address] [place], [place] [address]Dr. Rasta Gatica Lymphocytes/100 WBC (Bld) 25.5 % Normal 20.5-60.0 [facility] Comment on above: Performed By: #### C BC ####[facility] Nlef[address] [place], [place] [address]Dr. Rasta Gatica MANUAL DIFF REQ NO Normal [facility] Comment on above: Performed By: #### C BC ####[facility] X[address] [place], [place] [address]Dr. Rasta Gatica MCH (RBC) [Entitic mass] 29.1 pg Normal 26.7-34.0 [facility] Comment on above: Performed By: #### C BC ####[facility] [address]sem[address] [place], [place] [address]Dr. Rasta Gatica MCHC (RBC) [Mass/Vol] 32.5 g/dL Normal 29.9-35.2 [facility] Comment on above: Performed By: #### C BC ####[facility] [address] [place] [address]Dr. Rasta Gatica MCV (RBC) [Entitic vol] 89.6 fL Normal 81.0-99.0 [facility] Comment on above: Performed By: #### C BC ####[facility] Gxlgbtibsv[address] [place], [place] [address]Dr. Rasta Gatica MONO # 0.8 103/ul Normal 0.3-0.8 [facility] Comment on above: Performed By: #### C BC ####[facility] Maufgpx[address] [place], [place] [address]Dr. Rasta Gatica Monocytes/100 WBC (Bld) 7.2 % Normal 1.7-12.0 [facility] Comment on above: Performed By: #### C BC ####[facility] J[address]jec[address] [place], [place] [address]Dr. Rasta Gatica NEUT # 7.3 103/ul Critically high 1.4-6.5 [facility] Comment on above: Performed By: #### C BC ####[facility] Av[address] [place], [place] [address]Dr. Rasta Gatica Neutrophils/100 WBC (Bld) 65.3 % Normal 43.0-75.0 [facility] Comment on above: Performed By: #### C BC ####[facility] [address] [place], [place] [address]Dr. Rasta Gatica Platelet mean volume (Bld) [Entitic vol] 10.7 fL Normal 9.5-13.5 [facility] Comment on above: Performed By: #### C BC ####[facility] [address] [place], [place] [address]Dr. Rasta Gatica PLT 279 103/ul Normal 150-450 [facility] Comment on above: Performed By: #### C BC ####[facility] [address] [place], [place] [address]Dr. Rasta Gatica RBC 4.50 106/ul Normal 4.20-5.40 [facility] Comment on above: Performed By: #### C BC ####[facility] [address] [place], [place] [address]KuDr. Rasta Gatica WBC 11.2 103/ul Critically high 4.0-11.0 [facility] Comment on above: Performed By: #### C BC ####[facility] [address] [place], [place] [address]GuDr. Rasta Gatica GLYCOHEMOGLOBIN A1Con 2022 ADA RECOMMENDATION SEE BELOW Normal [facility] Comment on above: Result Comment: ADA RECOMMENDED LIMIT 4.0 - 6.0 ADA THERAPEUTIC TARGET < 7.0 ACTION SUGGESTED > 7.0 Performed By: #### A 1C #### [facility] [address] [address] [address] Rasta Gatica Glucose [Mass/Vol] 103 mg/dL Normal [facility] Comment on above: Performed By: #### A 1C #### [facility] [address] [address] [address] Rasta Gatica HbA1c (Bld) [Mass fraction] 5.2 % Normal 4.5-6.2 [facility] Comment on above: Performed By: #### A 1C #### [facility] [address] [address] [address] Rasta Gatica LIPID PROFILEon 08-07-2022 CHOL-HDL RATIO NORM SEE BELOW Normal [facility] Comment on above: Result Comment: 3.3 - 4.4 LOW RISK 4.4 - 7.1 AVERAGE RISK 7.1 - 11.0 MODERATE RISK >11.0 HIGH RISK Performed By: #### L IPID, BMP, TSH, LIVER #### [facility] [id number] Rasta Gatica Cholesterol [Mass/Vol] 234 mg/dL Critically high <=200 [facility] Comment on above: Performed By: #### L IPID, BMP, TSH, LIVER #### [facility] [address] [address] [address] Rasta Gatica Cholesterol in HDL [Mass/Vol] 67 mg/dL Critically high 40-60 [facility] Comment on above: Performed By: #### L IPID, BMP, TSH, LIVER #### [facility] [address] [address] [address] Rasta Gatica Cholesterol in LDL [Mass/Vol] 151.8 mg/dL Normal [facility] Comment on above: Performed By: #### L IPID, BMP, TSH, LIVER #### [facility] [address] [address] [address] Rasta Gatica Cholesterol.total/C holesterol in HDL [Mass ratio] 3.5 {ratio} Normal [facility] Comment on above: Performed By: #### L IPID, BMP, TSH, LIVER #### [facility] [address] [place] [address] Dr. Rasta Gatica HDL NORMAL > or = 60 mg/dl - LO W CARDIOVASCULAR RISK <40 mg/dl - HIGH CARDIOVASCULAR RISK Normal [facility] Comment on above: Performed By: #### L IPID, BMP, TSH, LIVER #### [facility] [address] [address] [address] Rasta Gatica LDL CALC NORMAL SEE BELOW Normal [facility] Comment on above: Result Comment: <100 mg/dl OPTIMAL 100 - 129 mg/dl NEAR OR ABOVE OPTIMAL 130 - 159 mg/dl BORDERLINE HIGH 160 - 189 mg/dl HIGH >190 mg/dl VERY HIGH Performed By: #### L IPID, BMP, TSH, LIVER #### [facility] [address] [address] [address] Rasta Gatica Triglyceride [Mass/Vol] 76 mg/dL Normal <=150 [facility] Comment on above: Performed By: #### L IPID, BMP, TSH, LIVER #### [facility] [address] [place] [address] Dr. Rasta Gatica VLDL CALC 15.2 mg/dL Normal [facility] Comment on above: Performed By: #### L IPID, BMP, TSH, LIVER #### [facility] [address] [address] [address] Rasta Gatica LIVER PROFILEon 08-07-2022 Albumin [Mass/Vol] 3.8 g/dL Normal 3.4-5.0 [facility] Comment on above: Performed By: #### L IPID, BMP, TSH, LIVER #### [facility] [address] [place] [address] Dr. Rasta Gatica Albumin/Globulin [Mass ratio] 1.0 {ratio} Normal [facility] Comment on above: Performed By: #### L IPID, BMP, TSH, LIVER #### [facility] [address] [place] [address] Dr. Rasta Gatica ALP [Catalytic activity/Vol] 98 U/L Normal 46-116 [facility] Comment on above: Performed By: #### L IPID, BMP, TSH, LIVER #### [facility] [address] [place] [address] Dr. Rasta Gatica ALT [Catalytic activity/Vol] 24 U/L Normal 14-59 [facility] Comment on above: Performed By: #### L IPID, BMP, TSH, LIVER #### [facility] [address] [place] [address] Dr. Rasta Gatica AST [Catalytic activity/Vol] 19 U/L Normal 15-37 [facility] Comment on above: Performed By: #### L IPID, BMP, TSH, LIVER #### [facility] [address] [place] [address] Dr. Rasta Gatica BILI, CONJUGATED 0.1 mg/dL Normal 0.0-0.2 [facility] Comment on above: Performed By: #### L IPID, BMP, TSH, LIVER #### [facility] [address] [place] [address] Dr. Rasta Gatica Bilirubin [Mass/Vol] 0.4 mg/dL Normal 0.2-1.0 [facility] Comment on above: Performed By: #### L IPID, BMP, TSH, LIVER #### [facility] [address] [place] [address] Dr. Rasta Gatica Globulin (S) [Mass/Vol] 3.8 g/dL Normal [facility] Comment on above: Performed By: #### L IPID, BMP, TSH, LIVER #### [facility] [address] [place] [address] Dr. Rasta Gatica Protein [Mass/Vol] 7.6 g/dL Normal 6.4-8.2 [facility] Comment on above: Performed By: #### L IPID, BMP, TSH, LIVER #### [facility] [address] [place] [address] Dr. Rasta Gatica PROF CHEM 8 (BAS METB)on Anion gap [Moles/Vol] 9.6 mmol/L Normal [facility] Comment on above: Performed By: #### L IPID, BMP, TSH, LIVER #### [facility] [address] [place] [address] Dr. Rasta Gatica Calcium [Mass/Vol] 9.8 mg/dL Normal 8.5-10.1 [facility] Comment on above: Performed By: #### L IPID, BMP, TSH, LIVER #### [facility] [address] [place] [address] Dr. Rasta Gatica Chloride [Moles/Vol] 106 mmol/L Normal 98-107 [facility] Comment on above: Performed By: #### L IPID, BMP, TSH, LIVER #### [facility] [address] [place] [address] Dr. Rasta Gatica CO2 [Moles/Vol] 27.0 mmol/L Normal 21.0-32.0 [facility] Comment on above: Performed By: #### L IPID, BMP, TSH, LIVER #### [facility] [address] [place] [address] Dr. Rasta Gatica Creatinine [Mass/Vol] 0.66 mg/dL Normal 0.55-1.02 [facility] Comment on above: Performed By: #### L IPID, BMP, TSH, LIVER #### [facility] [address] [place] [address] Dr. Rasta Gatica EGFR-AF COLOMBIAN >60 Normal >=60 [facility] Comment on above: Performed By: #### L IPID, BMP, TSH, LIVER #### [facility] [address] [address] [address] Rasta Gatica EGFR-NON AF COLOMBIAN >60 Normal >=60 [facility] Comment on above: Performed By: #### L IPID, BMP, TSH, LIVER #### [facility] [address] [address] [address] Rasta Gatica Glucose [Mass/Vol] 88 mg/dL Normal 74-106 [facility] Comment on above: Performed By: #### L IPID, BMP, TSH, LIVER #### [facility] [address] [place] [address] Dr. Rasta Gatica Potassium [Moles/Vol] 4.6 mmol/L Normal 3.5-5.1 [facility] Comment on above: Performed By: #### L IPID, BMP, TSH, LIVER #### [facility] [address] [place] [address] Dr. Rasta Gatica Sodium [Moles/Vol] 138 mmol/L Normal 136-145 [facility] Comment on above: Performed By: #### L IPID, BMP, TSH, LIVER #### [facility] [address] [place] [address] Dr. Rasta Gatica Urea nitrogen [Mass/Vol] 10.0 mg/dL Normal 7.0-18.0 [facility] Comment on above: Performed By: #### L IPID, BMP, TSH, LIVER #### [facility] [address] [place] [address] Dr. Rasta Gatica Urea nitrogen/Creatinine [Mass ratio] 15.2 mg/mg Normal [facility] Comment on above: Performed By: #### L IPID, BMP, TSH, LIVER #### [facility] [address] [place] [address] Dr. Rasta Gatica TSHon 08-07-2022 TSH 1.521 uIU/mL Normal 0.358-3.740 [facility] Comment on above: Performed By: #### L IPID, BMP, TSH, LIVER #### [facility] [address] [place] [address] HEAD WO CONon [...] authenticated by: GLENN PACHECO Date: 2022-06-14 20:18 [facility] PAP ACOG PANEL 2: 22 to 30on 02-08-2022 . . Normal [facility] Comment on above: Performed By: #### [id number] #### [facility] [address] [address] [address] Rasta Gatica Age Gdln ACOG Testing 22- [facility] Comment on above: Performed By: #### 4 [id number] #### [facility] [address] [address] [address] Rasta Gatica DIAGNOSIS: Comment [facility] Comment on above: Result Comment: NEGA TIVE FOR INTRAEPITHELIAL LESION OR MALIGNANCY. Performed By: #### 4 [id number] #### [facility] [address] [address] [address] Rasta Gatica Methodology: Comment Normal [facility] Comment on above: Result Comment: This liquid based ThinPrep(R) pap test was screened with the use of an image guided system. Performed By: #### 4 [id number] #### [facility] [address] [address] [address] Rasta Gatica Note: Comment [facility] Comment on above: Result Comment: The Pap smear is a screening test designed to aid in the detection of premalignant and malignant conditions of the uterine cervix. It is not a diagnostic procedure and should not be used as the sole means of detecting cervical cancer. Both false-positive and false-negative reports do occur. . Performed By: #### 4 [id number] #### [facility] [address] [address] [address] Rasta Gatica Performed by: Comment Normal [facility] Comment on above: Result Comment: Darline Terry, Ticket Attendant (ASCP) Performed By: #### 4 [id number] #### [facility] [address] [place] [address] Dr. Rasta Gatica Reflex Criteria: Comment Normal [facility] Comment on above: Result Comment: The HPV DNA reflex criteria were not met with this specimen result therefore, no HPV testing was performed. . Performed By: #### 4 [id number] #### [facility] [address] [address] [address] Rasta Gatica Specimen adequacy: Comment Normal [facility] Comment on above: Result Comment: Sati sfactory for evaluation. Endocervical and/or squamous metaplastic cells (endocervical component) are present. Performed By: #### 4 [id number] #### [facility] [address] [place] [address] Dr. Rasta Gatica CBC AUTO DIFFon 02-02-2022 BASO # 0.0 103/ul Normal 0.0-0.1 [facility] Comment on above: Performed By: #### C BC ####[facility] [address] [place] [address]DrHany Gatica Basophils/100 WBC (Bld) 0.4 % Normal 0.2-2.0 [facility] Comment on above: Performed By: #### C BC ####[facility] [address] [place] [address]DrHany Gatica EO # 0.1 103/ul Normal 0.0-0.7 [facility] Comment on above: Performed By: #### C BC ####[facility] [address] [place] [address]DrHany Gatica Eosinophils/100 WBC (Bld) 1.3 % Normal 0.9-7.0 [facility] Comment on above: Performed By: #### C BC ####[facility] [address] [place] [address]Dr. Rasta Gatica Erythrocyte distribution width (RBC) [Ratio] 13.2 % Normal 11.0-15.0 [facility] Comment on above: Performed By: #### C BC ####[facility] [address] [place] [address]Dr. Rasta Gatica Hematocrit (Bld) [Volume fraction] 40.8 % Normal 36.0-48.0 [facility] Comment on above: Performed By: #### C BC ####[facility] [address] [place], [place] [address]Dr. Rasta Gatica Hemoglobin (Bld) [Mass/Vol] 13.2 g/dL Normal 12.0-16.0 [facility] Comment on above: Performed By: #### C BC ####[facility] [address] [place], [place] [address]Dr. Rasta Gatica IG # 0.03 10e3/ul Normal 0.00-0.03 [facility] Comment on above: Performed By: #### C BC ####[facility] [address] [place], [place] [address]Dr. Karrieroopa Gatica IG % 0.3 % Normal 0.0-0.5 [facility] Comment on above: Performed By: #### C BC ####[facility] [address] [place], [place] [address]Dr. Karrieroopa Gatica LYMPH # 2.8 103/ul Normal 1.2-3.8 [facility] Comment on above: Performed By: #### C BC ####[facility] [address] [place], [place] [address]Dr. Karrieroopa Gatica Lymphocytes/100 WBC (Bld) 29.1 % Normal 20.5-60.0 [facility] Comment on above: Performed By: #### C BC ####[facility] [address] [place], [place] [address]Dr. Rasta Gatica MANUAL DIFF REQ NO Normal [facility] Comment on above: Performed By: #### C BC ####[facility] [address] [place], [place] [address]Dr. Rasta Gatica MCH (RBC) [Entitic mass] 29.1 pg Normal 26.7-34.0 [facility] Comment on above: Performed By: #### C BC ####[facility] [address] [place], [place] [address]Dr. Rasta Gatica MCHC (RBC) [Mass/Vol] 32.4 g/dL Normal 29.9-35.2 [facility] Comment on above: Performed By: #### C BC ####[facility] [address] [place], [place] [address]Dr. Rasta En MCV (RBC) [Entitic vol] 90.1 fL Normal 81.0-99.0 [facility] Comment on above: Performed By: #### C BC ####[facility] [address] [place], [place] [address]Dr. Rasta Gatica MONO # 0.6 103/ul Normal 0.3-0.8 [facility] Comment on above: Performed By: #### C BC ####[facility] [address] [place], [place] [address]Dr. Rasta Gatica Monocytes/100 WBC (Bld) 6.6 % Normal 1.7-12.0 [facility] Comment on above: Performed By: #### C BC ####[facility] [address] [place], [place] [address]Dr. Rasta Gatica NEUT # 6.0 103/ul Normal 1.4-6.5 [facility] Comment on above: Performed By: #### C BC ####[facility] [address] [place], [place] [address]Dr. Rasta Gatica Neutrophils/100 WBC (Bld) 62.3 % Normal 43.0-75.0 [facility] Comment on above: Performed By: #### C BC ####[facility] [address] [place], [place] [address]Dr. Rasta Gatica Platelet mean volume (Bld) [Entitic vol] 11.4 fL Normal 9.5-13.5 [facility] Comment on above: Performed By: #### C BC ####[facility] [address] [id number]. Rasta Gatica PLT 264 103/ul Normal 150-450 [facility] Comment on above: Performed By: #### C BC ####[facility] [address] [address]Dr. Karrieroopa Gatica RBC 4.53 106/ul Normal 4.20-5.40 [facility] Comment on above: Performed By: #### C BC ####[facility] [address] [id number]. Karrieroopa En WBC 9.7 103/ul Normal 4.0-11.0 [facility] Comment on above: Performed By: #### C BC ####[facility] [address] [address]Dr. Rasta Gatica GLYCOHEMOGLOBIN A1Con 2021 ADA RECOMMENDATION SEE BELOW Normal [facility] Comment on above: Result Comment: ADA RECOMMENDED LIMIT 4.0 - 6.0 ADA THERAPEUTIC TARGET < 7.0 ACTION SUGGESTED > 7.0 Performed By: #### A 1C #### [facility] [address] [address] [address] Rasta Gatica Glucose [Mass/Vol] 120 mg/dL Normal [facility] Comment on above: Performed By: #### A 1C #### [facility] [address] [address] [address] Rasta Gatica HbA1c (Bld) [Mass fraction] 5.8 % Normal 4.5-6.2 [facility] Comment on above: Performed By: #### A 1C #### [facility] [address] [address] [address] Rasta Gatica LIPID PROFILEon 02-02-2022 CHOL-HDL RATIO NORM SEE BELOW Normal [facility] Comment on above: Result Comment: 3.3 - 4.4 LOW RISK 4.4 - 7.1 AVERAGE RISK 7.1 - 11.0 MODERATE RISK >11.0 HIGH RISK Performed By: #### L IVER, TSH, BMP, LIPID ####[facility] [address] [place] [address]Dr. Rasta Gatica Cholesterol [Mass/Vol] 210 mg/dL Critically high <=200 [facility] Comment on above: Performed By: #### L IVER, TSH, BMP, LIPID ####[facility] [address] [place] [address]Dr. Rasta Gatica Cholesterol in HDL [Mass/Vol] 61 mg/dL Critically high 40-60 [facility] Comment on above: Performed By: #### L IVER, TSH, BMP, LIPID ####[facility] [address] [place] [id number]. Rasta Gatica Cholesterol in LDL [Mass/Vol] 114.4 mg/dL Normal [facility] Comment on above: Performed By: #### L IVER, TSH, BMP, LIPID ####[facility] [address] [place] [address]Dr. Rasta Gatica Cholesterol.total/C holesterol in HDL [Mass ratio] 3.4 {ratio} Normal [facility] Comment on above: Performed By: #### L IVER, TSH, BMP, LIPID ####[facility] [address] [place] [address]Dr. Rasta Gatica HDL NORMAL > or = 60 mg/dl - LO W CARDIOVASCULAR RISK <40 mg/dl - HIGH CARDIOVASCULAR RISK Normal [facility] Comment on above: Performed By: #### L IVER, TSH, BMP, LIPID ####[facility] [address] [place] [address]Dr. Rasta Gatica LDL CALC NORMAL SEE BELOW Normal [facility] Comment on above: Result Comment: <100 mg/dl OPTIMAL 100 - 129 mg/dl NEAR OR ABOVE OPTIMAL 130 - 159 mg/dl BORDERLINE HIGH 160 - 189 mg/dl HIGH >190 mg/dl VERY HIGH Performed By: #### L IVER, TSH, BMP, LIPID ####[facility] [address] [place] [address]Dr. Rasta Gatica Triglyceride [Mass/Vol] 173 mg/dL Critically high <=150 [facility] Comment on above: Performed By: #### L IVER, TSH, BMP, LIPID ####[facility] [address] [place] [id number]. Yiroopa Gatica VLDL CALC 34.6 mg/dL Normal [facility] Comment on above: Performed By: #### L IVER, TSH, BMP, LIPID ####[facility] [address] [place] [address]Dr. Karrieroopa Gatica LIVER PROFILEon 02-02-2022 Albumin [Mass/Vol] 3.5 g/dL Normal 3.4-5.0 [facility] Comment on above: Performed By: #### L IVER, TSH, BMP, LIPID ####[facility] [address] [place] [address]Dr. Rasta Gatica Albumin/Globulin [Mass ratio] 1.1 {ratio} Normal [facility] Comment on above: Performed By: #### L IVER, TSH, BMP, LIPID ####[facility] [address] [place] [address]Dr. Rasta Gatica ALP [Catalytic activity/Vol] 71 U/L Normal 46-116 [facility] Comment on above: Performed By: #### L IVER, TSH, BMP, LIPID ####[facility] [address] [place], [place] [address]Dr. Karrieroopa Gatica ALT [Catalytic activity/Vol] 15 U/L Normal 14-59 [facility] Comment on above: Performed By: #### L IVER, TSH, BMP, LIPID ####[facility] [address] [place] [address]Dr. Rasta Gatica AST [Catalytic activity/Vol] 8 U/L Critically low 15-37 [facility] Comment on above: Performed By: #### L IVER, TSH, BMP, LIPID ####[facility] [address] [place], [place] [address]Dr. Rasta Gatica BILI, CONJUGATED <0.1 Normal 0.0-0.2 [facility] Comment on above: Performed By: #### L IVER, TSH, BMP, LIPID ####[facility] [address] [place] [address]Dr. Rasta Gatica Bilirubin [Mass/Vol] 0.1 mg/dL Critically low 0.2-1.0 [facility] Comment on above: Performed By: #### L IVER, TSH, BMP, LIPID ####[facility] [address] [place] [address]Dr. Rasta Gatica Globulin (S) [Mass/Vol] 3.3 g/dL Normal [facility] Comment on above: Performed By: #### L IVER, TSH, BMP, LIPID ####[facility] [address] [place] [address] [address]Dr. Rasta Gatica Protein [Mass/Vol] 6.8 g/dL Normal 6.4-8.2 [facility] Comment on above: Performed By: #### L IVER, TSH, BMP, LIPID ####[facility] My[address] [place], [place] [address]Dr. Rasta Gatica PROF CHEM 8 (BAS METB)on Anion gap [Moles/Vol] 10.6 mmol/L Normal [facility] Comment on above: Performed By: #### L IVER, TSH, BMP, LIPID ####[facility] [address] [place], [place] [address]Dr. Rasta Gatica Calcium [Mass/Vol] 9.2 mg/dL Normal 8.5-10.1 [facility] Comment on above: Performed By: #### L IVER, TSH, BMP, LIPID ####[facility] [address] [place] [address]Dr. Rasta Gatica Chloride [Moles/Vol] 106 mmol/L Normal 98-107 [facility] Comment on above: Performed By: #### L IVER, TSH, BMP, LIPID ####[facility] [address] [place] [address]Dr. Rasta Gatica CO2 [Moles/Vol] 29.3 mmol/L Normal 21.0-32.0 [facility] Comment on above: Performed By: #### L IVER, TSH, BMP, LIPID ####[facility] [address] [place] [address]Dr. Rasta Gatica Creatinine [Mass/Vol] 0.63 mg/dL Normal 0.55-1.02 [facility] Comment on above: Performed By: #### L IVER, TSH, BMP, LIPID ####[facility] [address] [place] [address]Dr. Rasta Gatica EGFR-AF COLOMBIAN >60 Normal >=60 [facility] Comment on above: Performed By: #### L IVER, TSH, BMP, LIPID ####[facility] [address] [place] [address] [address]Dr. Rasta Gatica EGFR-NON AF COLOMBIAN >60 Normal >=60 [facility] Comment on above: Performed By: #### L IVER, TSH, BMP, LIPID ####[facility] [address] [place] [address]Dr. Rasta Gatica Glucose [Mass/Vol] 82 mg/dL Normal 74-106 [facility] Comment on above: Performed By: #### L IVER, TSH, BMP, LIPID ####[facility] [address] [place], [place] [address]Dr. Rasta Gatica Potassium [Moles/Vol] 3.9 mmol/L Normal 3.5-5.1 [facility] Comment on above: Performed By: #### L IVER, TSH, BMP, LIPID ####[facility] [address] [place], [place] [address]Dr. Ratsa Gatica Sodium [Moles/Vol] 142 mmol/L Normal 136-145 [facility] Comment on above: Performed By: #### L IVER, TSH, BMP, LIPID ####[facility] [address] [place], [place] [address]Dr. Rasta Gatica Urea nitrogen [Mass/Vol] 11.0 mg/dL Normal 7.0-18.0 [facility] Comment on above: Performed By: #### L IVER, TSH, BMP, LIPID ####[facility] [address] [place], [place] [address]Dr. Rasta Gatica Urea nitrogen/Creatinine [Mass ratio] 17.5 mg/mg Normal [facility] Comment on above: Performed By: #### L IVER, TSH, BMP, LIPID ####[facility] [address] [place], [place] [address]CpHany Gatica TSHon 02-02-2022 TSH 1.214 uIU/mL Normal 0.358-3.740 [facility] Comment on above: Performed By: #### L IVER, TSH, BMP, LIPID ####[facility] [address] [place], [place] [address]Dr. Rasta Gatica VITAMIN D 25 OHon 02-02-2022 VIT D 25-OH 28.2 ng/mL Normal [facility] Comment on above: Performed By: #### V ITAD #### [facility] [address] [place], [place] [address] Dr. Rasta Gatica VIT D RANGES SEE BELOW Normal [facility] Comment on above: Result Comment: <20 ng/mL Vit D deficient 20 - <30 ng/mL Vit D insufficient 30 - 100 ng/mL Vit D sufficient >100 ng/mL Potential Toxicity Performed By: #### V ITAD #### [facility] [address] [place], [place] [address] Dr. Rasta Gatica MRI Hand w/o Righton [...] by Nic Duncan on 09/12/[address] [facility] Mechanical Detailer ED Note-Physicianon 08-12-19 22 ED Note-Physician Basic [...] day(s), # 28 tab(s), Refills(s) 0, Pharmacy: [facility]/pharmacy #[id number], 168, cm, 08/08/21 14:35:00 EDT, [...] or concerns. Medicat (more content not included)... [facility] Comment on above: Result Comment: Elec tronically Signed By: Isi Stoll PA-C\.br\Date and Time Signed: 08/08/21 18:06 EDT\.br\Electronically Co-Signed By: Sourav Stinson DO\.br\Date and Time Co-Signed: 08/11/21 07:27 EDT Animal Bite Investigationon 08-08-2021 Animal Bite Investigation [id number]# 1.00CD:127 [facility] Coding Summary.on 08-08-2021 Coding Summary. CD:[id number] G h0bWw+PGhlYWQ+TG8FTYI aU18lxVXunO8TS3yUZP1J JQNNBSEDQT3LRK6goQA2V KsqI2MsjrSq DctevRWtKL82BNf3DNX9c DzuDFanlA7pgGIsD5e6Zx GiKE49rZ67BMzqBYEmUiZ 3LjZpbjsgbWFy X2ywRbMmaHYpKme+PHRhY mxlIHdpZHRoPScxMDAlJy BmrYtfGN8oEf7fAMCsPPP vbGxhcHNlOiBj u6olIFRrFAhcYT6nzXzoF 8VgpVX4AFYyb0q5Am47fX I+ZHRkALL6gPwkLRpco63 6BvUby7lrOXD7 sNZyXSpnPRF9X46vi8C3T ZZqAAHwGHO8kRY4bC4lfV ecttjrH7VxsZQfCbK6KXH 7kJPdtC0tgVog hhzhdU5gVjo+N50LEP3WM LAXNO6IMfm6E2KcNwrraS I+EX78FRGdMT11iZQrdMO ue5exqPg3BrEf TBTiGQR1yMtxIBnig0WeW ONlE65whNFvf2C1SXYrnK qlmNDqZiXxlIT6gH6pAUx probjs3gpedwc Eqfzu7fiil39zX95W82zZ LkiUPBzUNL4AJNuXZZpuD cjyf2bsP1eBf7+CLacb2r jq5npbPn8PbDa KCJzzoGeuHdtBQP9d8XbJ m24D5DmeJlrb9YhPwh0uy 27yHGbf0D7oSP3LZaaZXB vrA3bCNuhKmG4 LQTfYmTpxL38qBXhERkqG p8jbJglyXrpBO3jNVBpni yqORRdaQ2vHBFprSHmyAb yGR3iTMStnrtn u910BuNuRWV8BARzrWNtZ 1SykM9qKqZxZVVnXBEtX7 OziCWcMDbsK291CKhnVeS 7OBLvkvAeX1Jd PSLtaDniKeP9u2W7Yx7Xz 7ThchgtVCQ0TCbyORT5Wo CeIzMiHmT1U9MnNmy0XXD kkMfeMZ0oJ4Rb BUMpfbdusmgerMY7YBDrF EVkmT82fBSlNJkfOg3oe1 W0g079VPDzVODpsA54Hv8 udDogMTBwdCBU bZ2rlspov4pifunxSfLuW BNaBJf6ZHg9GYAodHrwMs YaVKI5LkE8HJK5uNDutD4 zhNprioetvE3o Oyc+G13dhN5aYNK6XFZ3k lyrZPLjkyBjPO61PG21I8 RyPjwvdGFibGU+PGRpdiB npSfeCS4cWtWb w8dnv1AhDGdvA9FiQIBgE TooRpc5FCHjJKS3oPR9rT 3gCHKaFPzsn8N8zQT6F0X iysRktb6gp9dk YXUeRQepV73tnXNyp6L1S DXkiMD0IHCtbIueEyUcmH 93Oyc+XYDweIiad0FwZee ck0lal3iboTt0 ZtNxHOErtvRmpYvdQBA3k 2PuVm16B05mSGfkWQVtWW CdTZMoEOYojYisyv4usF7 wIi8+PGNvbCB3 cRD0qY4oINJkVcC6UYbiW 171DwIviPOrDnxwv6vwm3 fuxOl3SlQnHVMqiuIkuRf aGGE9i8LdZr56 S13zHAxrLARqLJYxCOAhE BSwjYalxl2kxD2fKu9+PC 3vs2kuse08xA75yZT+PHR eRIK4gWzsQPkg EOYvbE8cIZovChQ0MXAjZ oLxoV92xYSpHOkuEy2vjA ipiPvfYI2gQAWsanfcl21 9BwOhu9kbNUGd hBKyBOqtZVL8B08ta1V5X AIkAAJdWCL4oIU4sP2vmA lnbjogbGVmdDsgdmVydGl fFXmgVUowA735 IHRvcDsnPlBhdGllbnQgT pEsRAx3K6BwEsf6EEYvqN mjJO9mgNLeSEsxIa2csMd uePmcRT1aRABb vzxal889TaUkp1lhIZSas QGyGXghWKU6P06iv1E3VL DgZJKuKFZ4lYH0gD6xhQx nbjogbGVmdDsg oyFzcGdoPMnqAErcP717M HRvcDsnPkJpcnRoIERhdG Z4OT08FS10pSBoz9R4wKQ 9P7RlBKKmqelw sqprrUY7AHZdLVIxxF06T s0spZrhKd7nLGFuMIJ3VU VulNZnL2WbjB3bIeBfOLD jIWPmU6NcoZEr KHjeI839EXxgFoS2OIZqt rXvQ9ElFPUonLzmUjB5t9 T3Ix7MB1J5FK89OU68nUL up9Z5jPX0F2Gr ZKMsvhvkaasptIC3FKEyB AJsmD42Ag2ooBfyRu4fLR OgBSM2PEJjtIDhP2SoyF8 yOiAjMDAwMDAw K0LinKYoSZrgC943LGcxZ zX3MKOgqvMqS6ShTDOyrS xmGxG6t4Z4Kg4WXWh8QB6 6RB57iKQpm2V0 oVM8W3QfMXUbjbllnoszu US1ZPJiIAYcvS14Fx3jfK xqLc5uXBPiFZN1KQIhqEP xE8YruE8rPcPr PCOnZBOeU6NtwLJvLXydL 858YRcbJkV8ARTiutAuP0 QqUMYkmWzyJfN3q4Q7Wv6 OYXXqNK46QWQ0 pUR4QU91GM34W6BbJuqmi GFibGU+PHRhYmxlIHdpZH RoPScxMDAlJyBzdHlsZT0 qLq4rJAEyEPGj cDgvaDVpZkIeh8dzFPFmO PdlJR7ljXuyM0RirXL0CW Paf1d2Sj98K40sZ5EdgPU +ONBwcSS5mAR4 sO8jEnUdQnP9HZzrQ868W sDcdOJaPluvv6osr9udpA c0SmV7LQPjvoSasQviQVA 8z9SvIt76K30d IHdpZHRoPSIxNSUiIHZhb Oethz4qmB9fVo5+PGNvbC S8kGN0pT8bCpRdAzV0WCl wL963LnHlxDLm Pbbhb7ryy6jlcJg4PeKoN FSftyOjdCidBZW7a2RlWv 40H5HssXvtl0WaPwe0bd4 2iWGht8H2gOO7 X4KyJYMilbpujBDqeEbwJ V0nGMVqwxjjNQGdmG5lTT WlA1g8BeUmQiG0CHumA8O oekO8PUNksWKb OSmtLNK1Z99af4T0XBYdT LCzOHO5yFB8kH6niDlypy ogbGVmdDsgdmVydGljYWw eENbaI694LCAf cTwgPRYmnS8wEYYpxQJkv DehEQ4rAQHjzvgpZeENME AIAHEWUUrXTEPQSJ68HW7 3qUIby7X0mGY8 A8BqDTLswvdkfglugRQ6E OYyPAFbfT62eDUbCXnxDr 3qq3K5o593PMHdKATydK3 0Lt4atVhzIHAx qCZBiO0qdcqde2thicttE dFvUUGzKQo4TIj9DKSvnE gnWoXmYQP2TdT1JJY2sRB ocM1awMmqugde wP3mMfm+ZHIqGtlwUIx1F jwvdGQ+GTLjGRW1nRohKF ggQIVjiW2hDOBgO4a4NcW rGjN5XRzsV4Cf MILsyccjRz83bX6zLsMwA bY2QBtbY1TyvaE0PDBioW ItLWtoUHR0H11xg0Y8VGD wEMMgDGE1oIQ8 bP8yfQdrlnxjrRPnqLbkr gTgrIdwRKxyDSxyT865SF DmzTawVnA7WWabXGOtZG1 3LB16dWTry7T3 aFF1I4QqVDJfvplghhgpj SU1ZSAeSGHcbK87aMEuXR reQb9kw8V1q146FUFeBTK xlU10Dl1fmOzr ACAsdRQRwQ7ohwrzx8gic piuXoSpHBNiHLi3HHd3BY XuwNjjTnMlUKB8KyE1BYG 3kTBwkU1ugBwr auedbJ4vOig+RmVtYWxlP B29NO42lTNuz9N6sMK6F8 HtWRYgaaxzdhuiwRM4JDY yOVJziN11nPLk WSjaYp1xs5O5m732RTPfV XYptS33Fm1jnNgaFOUbwP WSnG7kazoss3wvhmhlBmR vVCCtZUi0AEc1 PEUhuFonKeBvKOW7FqO8I GN7mUDoyW6nsXkkeimgcG 9wOyc+EH9mkvfofbH6GT6 9ZV78O8HnPlga dGFibGU+PHRhYmxlIHdpZ HRoPScxMDAlJyBzdHlsZT 5vGe0uZPNbNPMapRnbkSE oDjIbz9fgXHXh EHmuTS5kgOhtU1JlzZQ0F MKlp0g6Cu79Y27fK9LkeW A+WSFgqCK8iAL8vM1pScB mWpX0WAasT004 HeFdgXZiLwgxn9iha6ztl Wa8QdUdFAArlhXzvYdyWE C0m2GvZm69F90qFVfsHZK oPSIyMCUiIHZh qKwrnv4dhK4zTu4+PGNvb PN0cPU2jO9yGdCiIsQ1IP huC012IfExiBGzCnkzM10 tG7CiqFO+PHRy Bej4PWJkqPnkTP2guRXtC ZfwXa9vZSG0XnCcJoHvHV rjD0VtZQDanmvmdvkdqZP 1WASfTXVxnN92 Nm7mdShsSm7aYYFtBTX6I TCylWKzQ7RsmE6dYhPnQC PxSPRwB5QhcTApHRveJ23 8UYybBiK3ZQCa ncSjV7GbTBWhdLddLuX0t 6L5Yv6InQpnnCYuUZ3wMx AgSSw2R5FoIlr4HTZlfNi vFH6idZCxENjv Wd7wxBvxfFbtKY2dOMCmi ftjz993PhAav7dlMANbfD FpECmhRHQ6M01uh0Q5MDD rMWGyOIG3jZM8 vN1axXymfpsirTWewIslw dWktGlyBZxlJRibT114UV QorPkcSsPUMay2I4LdPdn 5OANhvLlnNG3l uACwGZzcUb3ceMpafSynC G9vUERpeuwcg572EpQsn5 eiLBXrvEOdNRcpQRX0J60 sx3M9LBXlIVRk MYD0yVT7dR6sdEirkzmmw GVmdDsgdmVydGljYWwtYW lyB258HFKuwVkyTh0QSzh 1Z9XsVlp5UGWx aQurKX5rfCSrURtwQy0yy FrtfNmiGP4wSOIvhtwsl4 98AxMet0vmMBTxuLWtNYb cFYR9J63ak8L9 FKJsNEUrPHS7sJK4eD1gn GlnbjogbGVmdDsgdmVydG rgQBvmLGybY451KFQyxBq nPlBheWVyOjwv dGQ+YA99ts36N9PjNivnT ul0JUBsDLO5lLK6iQ8kCF HwSNpup8P7vVU1N6ZmykI wrh6wi3bbGOAp ZTog (more content not included)... [facility] Consent for Treatmenton Consent for Treatment [id number]#1 .00CD:127 [facility] Discharge Instructionson Discharge Instructions [id number]# 1.00CD:127 [facility] ED Clinical Summaryon 2021 ED Clinical Summary [place] [id number] ED Clinical Summary Person Information [facility]: [facility]NN [facility] Age[facility] 26 Years : 1995 Sex: Female Language: Nicaraguan PCP: MICHAEL HELMS MD Marital Status: Phone: [phone] Visit Id: Visit Reason: Dog bite: hand; [...] 08/08/2021 15:44:14 08/08/2021 15:44:14 08/08/2021 15:44:14 ADDRESS: [facility] [id number] PHYS DOC NOTES: MEDICAL INFORMATION: Prescriptions Given: New Medications [id number], [address], [place] [id number], [phone] amoxicillin-clavulana te (Augmentin 875 mg oral tablet) [...] PATIENT EDUCATION INFORMATION: Instructions: Animal Bite, Adult, Jgnx-df-Gjbd Follow up: With: Address: When: MICHAEL HELMS [address] [place], [place] [id number] Business (1) In 3 days 08/11/2021 DIAGNOSIS: 1:Dog bite of middle finger; Bitten by dog, initial encounter Normal [facility] ED Patient Education Noteon 08-08-2021 ED Patient [...] cannot use soap and water, use hand tow mate. ? Change your bandage as told by [...] bad smell. Medicines ? Take or apply bqfy-dvb-axygiww and prescription medicines only as told by [...] 03/25/2006 Document Revised: 03/20/2018 Document Reviewed: 10/03/2017 [employer] Patient Education ? 2019 [employer]. Normal [facility] ED Patient Summaryon 022 ED Patient Summary [place] [id number] Patient Discharge Instructions Person Information Name: BROOKLYNN GTZ Age: 26 Years Arrival Date: 08/08/2021 14:29:26 Discharge Diagnosis: 1:Dog bite of middle finger; Bitten by dog, initial encounter Primary Care Physician: MICHAEL HELMS MD Provider Information Primary Provider: Sourav Stinson DO Advanced Medical Transcriber:None The exam and treatment you received in the Emergency Department were for an urgent problem and are not intended as complete care. It is important that you follow up with a doctor, nurse practitioner, or physician?s advertising sales assistant for ongoing care. If your symptoms [...] When: MICHAEL HELMS [address] [place], [place] [id number] Business (1) In 3 days 08/11/2021 In the event that this physician does not participate in your insurance network, please consult with your insurance company to find a nearby participating provider. Patient Education Materials: Animal Bite, Adult, Olku-av-Ecop A MESSAGE TO ALL PATIENTS REGARDING OPIOIDS PRESCRIPTION OPIOIDS: WHAT YOU NEED TO KNOW Prescription opioids can be used to help relieve dlhtqeuw-je-grhrxq pain and are often prescribed following a [...] be struggling with addiction, tell your health infant childcare provider and ask for guidance or call [facility]?S National Helpline at 1-516-560-FA (more content not included)... Normal [facility] Coding Summary.on 02-24-2021 Coding Summary. CD:[id number] G h0bWw+PGhlYWQ+NH0PSGX dK72uoOJpyD6WH0vOUQ3I TBRFVFNNTU3DZL2vmJG7B TruS1EdrsVm SulbtXFkEP56MLf3RHB9a XlbLOypcT9ykYCfL6c8Xm PdPX98oE15RBefZHJzRyB 3LjZpbjsgbWFy E1hpTjFqsLNcVld+PHRhY mxlIHdpZHRoPScxMDAlJy PttBzkPG5nTs9mKEPsLTE vbGxhcHNlOiBj c6adOJUaBDosNQ5yvAngB 2ZpnGA9RCIlf3s4Xx94nA I+SULjSGZ7rTcaYOfvv94 3QiWjc9tlPZQ1 xFIdGCjxKZX0R64ef7D9A VKnEXZwWPM3nMO5xM0dsN tmpjykG9MmpEWfOpS0DKR 7kBBryD6jbLlk otzsuH8fQle+L60FBQ3MX UWIDX1IVio3D8PtWsocvB I+DH49JQRwCM09zCKxhFY ye1daoKy3ZtTc YMSaVNL7oSnyVSwzg6XpS MYqX25xyVLua9G4ARDypH qvnTYaUcVyyOE9hA7vFXg xehotn8yjdysl Ddjtp3kjyc40uP47S67rD AbySKMhEXG7GVKaQJBwbH xtpk8bjW4jMp0+SAwcg6v hk6jnmRw6PiFa OMAlejUzsRxnBMP6p6NtE x91C9FtoIksf4WnQya7hc 95iPEga4E9dNF6QWyvYQU lqE2uEIolXfY4 WMWpCiGulH93fJGdAKnqG y1ttIjpaNqoBJ1fURGpaf jjFCAosP6wJDCxnVUjdSd iVE6yYSGuxhtx v452RwWuECX7OPMtkYPjT 9XrcI0eBlNbEJOqSHWzO6 AnvIBcSGvrB417AJrvZiX 1YQIuahYyZ4El EWOewPfiAjU9j0G8Nf6Wu 8CgekeqKMX4PFghMVPwRz D5UxHgZwH2X3XyNgs7NJB ixEzqQM3zX9Mk LVZlfvxtlnzwmDG1GQUkN HRqlJ84jWAfHDlbDd0ju1 B9s799HXVvFUBbyD44Bc0 udDogMTBwdCBU bG8zafayp2dgwxxrCnKrQ AHdYLe3HYi8HJHbnYlcWn OhWQR1UoJ0CAL9vCPpzG1 anFjqsbovaV5z Oyc+T89npV6xGIG9YJA8a ypuLALaodQyMQ53GK81R5 RyPjwvdGFibGU+PGRpdiB lrEvlIQ6fBhVf w8orx9HaHGjlJ1AxYFWsW DmcUwe1CELoZIF1jNJ2oH 6tRQQoWIcta2M7hYU7B5A earFhjm0ux0wj NOPyMHnrZ63tuKIis6Y8R UHtoGI1ZRHleKywWxGgfM 93Oyc+AUVkaAgdq6NdJrf tm0xrr0xilJd0 BfIhSYMrfeXkoWzvRZX3x 7UiHz43E25lEOrmDHFyCV AgOMVnYCYxkUsfsf4spO3 wIi8+PGNvbCB3 pOU1sY2yIQHsMjY4OQbtN 368PpUfnWNhLmdcs1ykk4 poaZb6FbPvTPWpmnOnbXp fBTE8g2GiWd87 N46wNBdlGKAgKPTpJBZvR HKybSynxl7tjJ9kAd1+PC 8we0zwyr92kV21oQF+PHR tWIL4sEfsBDpl XGDmiT5rXGjeWlP4MOJlI nKcjH52wNRqVNyaWu6xqI xzhOnlQK5nCNCbjmacw42 9JzKpk4aqHZRk iLIsJXtsAPZ4Q98cj4O2I SUiVPXpIKV4nCP9dN5wcS lnbjogbGVmdDsgdmVydGl bMZphNBhwW171 IHRvcDsnPlBhdGllbnQgT sRtQGc9V1RpQff2SKZstL wgIV7yoRPaKUxxFa6xqRc ntKbyPW2iFUQn kwqnu685VyRoo3srBUZvy NGtQVgyYUX2U26cj3D7QK KnFOQhNGQ3lTD5xW1yjXg nbjogbGVmdDsg bpNsdUozQTsbWSgfJ925X HRvcDsnPkJpcnRoIERhdG B0RY19PO87iYFdx7N5cXF 8O7OrWYMlmuao qjkniFF8QWQqZRNcmJ31B c8nfTmhUe6hWAAyJKQ7IT QfaLWpS2EjpT2wXwDfOAI lTEUsA5HpmKGe IXqyO657CItxDyP8RWVri sHvC0FnBTGvzAwuOyX9n7 C5Xy8XY0C4US21JN36lGF pz3U4lJQ7Z4Db NHGiodqyeicvnZU3WGLiG ROlzL60Vm3zvYctHw1cUU OaYWT6SAJbdDSqT4MgeF2 yOiAjMDAwMDAw O7DhwESwMYwoG382WMtpZ wJ3CEMapjPaI6SdBCQeeM osSqU4w5G9St7CYYw7FS4 0XH50pLUvg5E2 zPP5D4OzQEFfptvzdgtqs NA5ANHaBWBkxT90Kq3yzD wjZr8oJYLpYBX3ZWDqeIW kI6LhwF5yPtFx OWLdWCFkA8OzpBCoVWikM 252JCrlAeQ4JULrsfMrI2 GkRNNllBaqGjN2l1O6Ma0 RATBsBT60SFC8 bRX9LD66GE50M9HxFrpen GFibGU+PHRhYmxlIHdpZH RoPScxMDAlJyBzdHlsZT0 lXx5sHUWrUZPi vFircFTqGlApx1esATQgD YufST3yzPpvH3EnqBT2KW Cnr8u1Tw67F05nR8AaePU +CIZfeRW9uXW4 fS8jUzIsCiR1GRtsJ741U yUtzPQxNpxbk4qne6stsF q4QoF3OOTyhjSfmLghJSJ 1k2BnFb52K41j IHdpZHRoPSIxNSUiIHZhb Bbrie7ivN5eLk1+PGNvbC M5bPA2vS9nEoPaPjF1CQa wK269GkUrxVPu Ioumf1fki8pjcBy6YcBtB EJhejAuiSczILA2q2RnAa 45Q5CpiRsoa8CmAst5fy5 1hCYzi3B9oHR6 K5ZkNMSdplyvsQZybUinE C8fHYJzsjguYMGrfF8lPW LmC7p8EkJrHtB6SPkwG6Z feeV8XLYyaOGh LLmbUWB5Z66sl0L6EBScB OFuJOA3hPR5iB5ioKaokf ogbGVmdDsgdmVydGljYWw mULsiN786UJTb oPqgEDFkcP8wXWWfmCLee MtxZU1yREGdzfqgVlSPRL AQFKQRQWoXUBCQEP65DE1 6fTPdl6E4jLR6 P0KzAHHpsrjxfmothPI7D QSiRECmxG40fKStODikHg 4sg8J7u898APUfTMTqlD9 9Qo6vwVxvJMIp iGLSzA0yivfea4urikmwL wTcTRLiGGh8ZPs9HZOmmF vuWcZcXBD5MgG8WAR3vXZ otA3ptBzqsffe cY7qEhd+FSKcVhjrKHm4Q jwvdGQ+KOVgGFG2rFrbRI fgPWQdwP9pYYIlD0x1CeK eUuB1TPzmS5Ku THHlqfouCm29vP4pBfDdD iC8UQjwJ6GmvmW6YMMfoE EqPApaBCC2Y08cs3X1VLW qOCQoLHG2oHP1 kL9pqAelxmhocXNypRozp rDytQadXAebSSijJ559IY XfgNxcBiH3RLzmOFHbWY4 5HE71eTAex8U7 bJO3D9LhUWOquazslpyom QG4HOMyPTJneD92nTBiTG esFy8lo3A8n919APVsDAA hhB80Zx5muKbx UPNkoXPBmE5npangs3bbj fitTmXnNDCxKKw8ZQc9MO EoqZtmFoXtNVA7AkO0VKB 3nTJbsQ8iaOqm mbmviF8lSrg+RmVtYWxlP C93AI85dVYvd4E6fLJ8W6 PxKYCschzgvlsmeHZ0KPP kRQDntL00xIIs KDpwYo0yo0D7q321TIRpJ PIpgX16Ln6rsAidMVGeuW TSuX7ewjqbg5xtplozPzC xFWJvGEj4FBu6 WCLfqXaqFlYqQMR6FyJ5D QP3jJXftY3fsKxtgegdyE 9wOyc+QS3xpyitueQ1ZW1 4OJ23L1DnXvqa dGFibGU+PHRhYmxlIHdpZ HRoPScxMDAlJyBzdHlsZT 7tNz4tCXMeDGKopYqqhXY lJxYxt0tyBZYl MQbpNO6olRmkY2KpwUF7H XBpa9i1Uo55G16jL2GciQ A+RAKuxAS9nFS2iY5uVmT dAuW0DGgyV274 VdNxfTUsBwcgy4fyw3hbd Je2MxZzVCCrpmTbvWmnGN I5v2GlFn61D92jWQckQFM oPSIyMCUiIHZh mWyieo8oyL8wNm6+PGNvb SH7yLE3wR9bHbLdDvS9XM xgG504PsSvzTEfFvqxZ27 bN4GisFZ+PHRy Ykc0ADCbsWrqNU1szKHhQ MlePh4fRZF9GzKkNtMrMB paP8CgLZMpnqaaddtjdFB 2QQNbNDPcdI38 Eg2ebGepJm7hHSYgEKW5T XVjxXPnO4OfsK6zLrEeVA UpASFkW3WgnAIkAXbyV58 6HKuhBdA6HHAx nyKaV2JnZKRaxEgtMgT7x 1J8Lg3RaJrdmQIcXD2aJj GsMEj3N8WmToe4WGWexIo pYS9ajLKrTMci Jf8jeOcdjBhbEH4eUUNou mbje013TyDfz0lmHPEysI BfTHpmGPS8Y89ir3N9ZMR dEIRdUMQ4nFH3 pY5igLkoojmguEBawGgav bBihSqlCVtnIBapA196BH FieQqtLnDJIva1F4CrMmw 3LAQmpPkwTJ2c jFVnCBuwFu3kgXkzaGbkZ Q7dYZZifphnp441RzKca4 qpZEJfoQQmFVrbVKU3W77 wq6O6EFCmPWWb UWK3pYV7tV4wqNvuwhsxb GVmdDsgdmVydGljYWwtYW rpH769OSJvkWriPh7WTjg 1O2PqFem0DDFk aSixVJ0vwWEfJEmrWp6yr VtbdGpmRG1mUIMzpshdv0 80ZqNgh8vkDHBnmVBoRBd fFIF6B95zp2O5 GEBrCXUzMCS3nFZ5zP0au GlnbjogbGVmdDsgdmVydG zgFMgvJWexR941NSAggBa nPlBheWVyOjwv dGQ+XG79sb03C6JcZgafU qz9IWYgOEW2qPW5wV1zOZ KlAAvfg6E9gFH7E7GfmxL wds0qm0luXOYe ZTog (more content not included)... Normal [facility] .Manual Abson 02-23-2021 Basophils/Leukocyte s Manual cnt (Bld) [Pure # fraction] 0.0 E9/L Normal 0.0-0.2 [facility] Comment on above: Performed By: #### 2 [id number] ####[facility] [id number] [place] [address] Eosinophils/Leukocy kenyon Manual cnt (Bld) [Pure # fraction] 0.0 E9/L Normal 0.0-0.5 [facility] Comment on above: Performed By: #### 2 [id number], [id number] ####[facility] [id number] [place] [address] Lymphocytes/Leukocy kenyon Manual cnt (Bld) [Pure # fraction] 1.8 E9/L Normal 1.0-4.0 [facility] Comment on above: Performed By: #### 2 [id number], [id number], [id number], [id number] ####[facility] [id number] [place] [address] Monocytes/Leukocyte s Manual cnt (Bld) [Pure # fraction] 0.3 E9/L Normal 0.2-1.0 [facility] Comment on above: Performed By: #### 2 [id number], [id number], [id number], [id number], [id number], [id number] ####[facility] [id number] [place] [address] Neutrophils/Leukocy kenyon Auto (Bld) [Pure # fraction] 1.7 E9/L Low 2.0-7.5 [facility] Comment on above: Performed By: #### 2 [id number], [id number], [id number], [id number], [id number], [id number] ####[facility] [id number] [place] [address] BMPon 02-23-2021 Creatinine [Mass/Vol] 0.7 mg/dL Normal 0.5-1.3 [facility] Comment on above: Performed By: #### 2 841380, 20726992, 74870300, 10705505, 6995748, 1049960 ####[facility] [address] [place] [address] Urea nitrogen [Mass/Vol] 7 mg/dL Normal 5-21 [facility] Comment on above: Performed By: #### 2 013329, 72367313, 42080321, 68751687, 2637155, 3785278 ####[facility] [address] [place] [address] Urea nitrogen/Creatinine [Mass ratio] 10 No Units Normal 10-20 [facility] Comment on above: Performed By: #### 2 121654, 78762605, 91458381, 93449949, 0985625, 4528363 ####[facility] [address] [place] [address] Anion gap [Moles/Vol] 13 mmol/L Normal 6-16 [facility] Comment on above: Performed By: #### 2 842717, 95327318, 31156521, 60546156, 1021087, 9071316 ####[facility] [address] [place] [address] Calcium [Mass/Vol] 9.0 mg/dL Normal 8.9-11.1 [facility] Comment on above: Performed By: #### 2 277208, 48283092, 86666098, 22056550, 6169926, 9789940 ####[facility] [address] [place] [address] Chloride [Moles/Vol] 103 mmol/L Normal 101-111 [facility] Comment on above: Performed By: #### 2 887788, 63524827, 97300550, 53709431, 2636514, 1982796 ####[facility] [address] [place] [address] CO2 [Moles/Vol] 22 mmol/L Normal 21-31 [facility] Comment on above: Performed By: #### 2 262506, 38634035, 09983554, 72730796, 7276624, 1240424 ####[facility] [address] [place] [address] Glucose [Mass/Vol] 129 mg/dL Normal 55-199 [facility] Comment on above: Result Comment: If t his glucose result represents a fasting glucose, interpretation should refer to the following reference range: 55-99 mg/dL Performed By: #### 2 918743, 80028060, 15175002, 24268704, 9007179, 6327122 ####[facility] [address] [place] [address] Potassium [Moles/Vol] 3.3 mmol/L Low 3.5-5.3 [facility] Comment on above: Performed By: #### 2 143026, 34456454, 75278098, 07836435, 2932257, 0753814 ####[facility] [address] [place] [address] Sodium [Moles/Vol] 135 mmol/L Normal 135-145 [facility] Comment on above: Performed By: #### 2 654732, 42283608, 60206950, 65535821, 4813866, 1977456 ####[facility] [address] [place] [address] CBC w/ Auto Diffon Erythrocyte distribution width (RBC) [Ratio] 13.5 % Normal 10.9-14.2 [facility] Comment on above: Performed By: #### 2 822039, 29741495, 57352069, 07996449, 4979956, 2323769 ####[place] [address] [place] [address] Hematocrit (Bld) [Volume fraction] 37.1 % Normal 34.0-46.0 [facility] Comment on above: Performed By: #### 2 699691, 02791330, 65878697, 88418458, 9320714, 7303983 ####[address] [place] [address] Hemoglobin (Bld) [Mass/Vol] 12.5 g/dL Normal 12.0-16.0 [facility] Comment on above: Performed By: #### 2 185205, 92379095, 74321431, 16193469, 5018921, 9589989 ####[address] [place] [address] MCH (RBC) [Entitic mass] 29.4 pg Normal 27.0-34.0 [facility] Comment on above: Performed By: #### 2 873891, 31966720, 23332384, 91562910, 9571444, 2988747 ####[address] [place] [address] MCHC (RBC) [Mass/Vol] 33.6 g/dL Normal 31.4-36.0 [facility] Comment on above: Performed By: #### 2 580385, 70380421, 41898861, 33367891, 3105416, 2591694 ####[place] [address] MCV (RBC) [Entitic vol] 87.4 fL Normal 80.0-100.0 [facility] Comment on above: Performed By: #### 2 522911, 43932824, 20006826, 80170913, 0147033, 1755248 ####[place] [address] Platelet mean volume (Bld) [Entitic vol] 9.4 fL Normal 6.4-10.8 [facility] Comment on above: Performed By: #### 2 378010, 23610917, 53472593, 59860854, 7434555, 4059991 ####[address] [address] Platelets (Bld) [#/Vol] 208.0 E9/L Normal 150.0-500.0 [facility] Comment on above: Performed By: #### 2 944861, 01303430, 46596158, 49442082, 9436185, 8037221 ####[place] [address] RBC (Bld) [#/Vol] 4.2 E12/L Low 4.3-5.9 [facility] Comment on above: Performed By: #### 2 561513, 99818053, 65189362, 55868054, 8081571, 6397642 ####[address] [address] WBC corrected for nucl RBC Auto (Bld) [#/Vol] 3.8 E9/L Low 4.0-11.0 [facility] Comment on above: Performed By: #### 2 141239, 58804765, 67940640, 23595658, 8381975, 3878573 ####[facility] [address] [place] [address] Consent for Treatmenton 02-06 Consent for Treatment [id number]:127 Normal [facility] Discharge Instructionson Discharge Instructions [id number]:127 Normal [facility] ED Clinical Summaryon 2020 ED Clinical Summary [address] [address] ED Clinical Summary Person Information Name: BROOKLYNN GTZ [facility] Age: 26 Years : 1995 Sex: Female Language: Nicaraguan PCP: MICHAEL HELMS MD Marital Status: Phone: [phone] Visit Id: Visit Reason: Shortness of breath; [...] 02/23/2021 15:23:48 02/23/2021 15:23:48 ADDRESS: [address] [place] [id number] PHYS DOC NOTES: MEDICAL INFORMATION: Prescriptions Given: [...] Reaction Follow up: With: Address: When: MICHAEL TINSLEYLauren [address] [place] [address] Business (1) In 3 days 02/26/2021 DIAGNOSIS: 1:Vaccine reaction Normal [facility] ED Note-Physicianon 02-24-20 ED Note-Physician Basic Information [...] Information MICHAEL HELMS In 3 days 02/26/[address] [address]- Business (1) Additional Instructions: Patient Education Post-Injection Inflammatory Reaction Attestation Patient seen and evaluated by the physician advertising sales assistant. Attending physician was present in the emergency department and supervised care. This report was transcribed using voice recognition software. Every effort was made to ensure accuracy, however, inadvertently computerized destination specialist mistakes may be present. Appropriate healthcare PPE [...] (02/23/21 (more content not included)... Normal [facility] Comment on above: Result Comment: Elec [...] a physical exam. During the exam, a [place] may be drawn around the injection site. The [place] helps to show whether redness in the area is spreading. How is this treated? Treatment for this condition depends on what caused the reaction and how severe the reaction is. Treatment may include: ? Putting an ice pack over the injection site. ? Taking a nonsteroidal anti-inflammatory drug (NSAID) to lessen swelling and itching. ? Taking antibiotic medicine. ? Taking xbuk-bns-ucemdfs pain medicine. If the reaction affects a joint, you may also need to rest the joint for a while. Follow these instructions at home: Medicines ? If you were prescribed antibiotic medicine, take or apply it as told by your health care provider. Do not stop taking or applying the antibiotic even if you start to feel better. ? Take uarr-hxc-kwgrztv and prescription medicines only as told by [...] Reviewed: 03/02/2019 Elsevier Patient Education ? 2019 [employer] Normal [facility] ED Patient Summaryon 021 ED Patient Summary [place] [id number] Patient Discharge Instructions Person Information Name: BROOKLYNN GTZ Age: 26 Years [facility]: [id number] Arrival Date: 02/23/2021 12:58:05 Discharge Diagnosis: 1:Vaccine reaction Primary Care Physician: MICHAEL HELMS MD Provider Information Primary Provider: Julee Herrera M.D. Advanced Medical Transcriber:Robert Urena PA-C The exam and treatment you received in the Emergency Department were for an urgent problem and are not intended as complete care. It is important that you follow up with a doctor, nurse practitioner, or physician?s advertising sales assistant for ongoing care. If your symptoms [...] Follow-up Instructions: With: Address: When: MICHAEL HELMS [address] [place] [address] Business (1) In 3 days 02/26/2021 In the event that this physician does not participate in your insurance network, please consult with your insurance company to find a nearby participating provider. Patient Education Materials: Post-Injection Inflammatory Reaction A MESSAGE TO ALL PATIENTS REGARDING OPIOIDS PRESCRIPTION OPIOIDS: WHAT YOU NEED TO KNOW Prescription opioids can be used to help relieve cfisleak-ze-bwoyjz pain and are often prescribed following a [...] be struggling with addiction, tell your health infant childcare provider and ask for guidance or call SAM[employer]?S National Helpline at 5-662-250-HELP. (more content not included)... Normal [facility] Manual Diffon 02-23-2021 Band form neutrophils/100 WBC (Bld) 6 % Normal 0-10 [facility] Comment on above: Order Comment: Order Added by Discern Expert. Performed By: #### 2 434061, 69661095, 28160351, 58262191, 5483983, 0386015 ####[facility] [address] [place] [address] Basophils/100 WBC (Bld) 0 % Normal 0-2 [facility] Comment on above: Order Comment: Order Added by Discern Expert. Performed By: #### 2 516946, 77527465, 43336792, 64410976, 7446051, 2135642 ####[facility] [address] [place] [address] Eosinophils/100 WBC (Bld) 1 % Normal 0-8 [facility] Comment on above: Order Comment: Order Added by Mike Expert. Performed By: #### 2 111780, 22971794, 45860173, 53612117, 7048466, 1066856 ####[facility] [address] [place] [address] Lymphocytes/100 WBC (Bld) 44 % Normal 14-50 [facility] Comment on above: Order Comment: Order Added by Mike Expert. Performed By: #### 2 299254, 44020205, 30257182, 83516735, 5008740, 2933806 ####[facility] [address] [place] [address] Monocytes/100 WBC (Bld) 7 % Normal 4-14 [facility] Comment on above: Order Comment: Order Added by Discern Expert. Performed By: #### 2 253147, 66558758, 23675296, 29648733, 8843107, 1241866 ####[facility] [address] [place] [address] Morphology Mateusz (Bld) [Interp] Normal Normal [facility] Comment on above: Order Comment: Order Added by Mike Expert. Performed By: #### 2 041406, 90835703, 68109031, 18630397, 3086519, 2762136 ####[facility] [address] [place] [address] Segmented neutrophils/100 WBC (Bld) 39 % Normal 36-75 [facility] Comment on above: Order Comment: Order Added by Discern Expert. Performed By: #### 2 950407, 68808397, 30371323, 79498684, 1944955, 9542268 ####[facility] [place] [address] Variant lymphocytes LM Ql (Bld) 3 % Invalid Interpretation Code [facility] Comment on above: Order Comment: Order Added by Discern Expert. Performed By: #### 2 976973, 42901188, 23607911, 28902597, 6943559, 3579475 ####[facility] [address] [place] [address] Prescriptions/Work Noteson 1 04-25-2020 Prescriptions/Work Notes [id number]:127 Normal [facility] Troponin 0 Hr.on 02-23-2021 Troponin I.cardiac [Mass/Vol] 2.30 pg/mL Low 10.10-27.10 [facility] Comment on above: Result Comment: The 95% CI (Confidence Interval) PPV (Positive Predictive Value) for myocardial infarction in females is 38 pg/mL, in males 51 pg/mL. The results should be used in conjunction with clinical conditions of myocardial infarction. (Access High Sensitivity Troponin I Instructions For Use, Emre Hiren, November 2017) Performed By: #### 2 719536, 58803361, 90333250, 52818900, 3288097, 3589838 ####[facility] [address] [place] [address] XR Chest Single Viewon 02-23 XR Chest [...] V. Transcribed by: KEMAR Technologist: DYAN Normal [facility] eGFRon 02-23-2021 GFR/1.73 sq M.predicted among blacks MDRD (S/P/Bld) [Vol rate/Area] mL/min/{1.73_m2} Normal >=59 [facility] Comment on above: Order Comment: Order added by Discern Expert. Result Comment: eGFR is race adjusted. AA=. Performed By: #### 2 881415, 23107986, 96849151, 47598475, 1659231, 5995627 ####[facility] [address] [place] [address] GFR/1.73 sq M.predicted among non-blacks MDRD (S/P/Bld) [Vol rate/Area] mL/min/{1.73_m2} Normal >=59 [facility] Comment on above: Order Comment: Order added by Discern Expert. Result Comment: Metal Mixer jorden kidney disease could be indicated at eGFR's of less than 60 mL/min/1.73m2. Kidney failure is indicated at less than 15 mL/min/1.73m2. Performed By: #### 2 916105, 11636685, 43949252, 40915526, 1223152, 8834112 ####[facility] [address] [place] [address] Ambulatory Clinical Summaryo n 10-14-2020 Ambulatory Clinical Summary {[id number] Normal [facility] Vital Signs Date Time Vital Sign Value Performing Clinician Facility 06-22-2022 09:210400 Body height 167.6 cm ANTELMO Bills MD Work Phone: [facility] 06-22-2022 09:040 Body weight 112.49 kg ANTELMO Bills MD Work Phone: [facility] 08-08-2021 14:31-0400 Body temperature 98.24 [degF] Sourav Stinson [facility] 08-08-2021 14:31-0400 Diastolic blood pressure 97 mm[Hg] Sourav Stinson [facility] 08-08-2021 14:31-0400 Heart rate 94 /min Sourav Stinson [facility] 08-08-2021 14:31-0400 Respiratory rate 18 /min Sourav Stinson [facility] 08-08-2021 14:31-0400 SaO2% (BldA) [Mass fraction] 98 % Sourav Stinson [facility] 08-08-2021 14:31-0400 Systolic blood pressure 137 mm[Hg] Sourav Stinson [facility] Encounters Encounter Date Encounter Type Care Provider Facility Start: 11-25-2023 End: 11-25-2023 ambulatory CELESTE [place]LE Not Available Start: 09-09-2023 End: 09-09-2023 ambulatory ENIO CIFUENTES [...] examination without abnormal findings DR MICHAEL HELMS [facility] Start: 08-07-2022 End: 08-08-[address] [...] 08-08-2021 Emergency department patient visit Sourav Stinson [facility] Procedures Date Procedure Procedure Detail Performing Clinician Start: 01-27-2015 excision of pilar cy [address] - local Sourav Stinson Lithotripsy Sourav Stinson Plan of Treatment Date Care Activity Detail Author Start: 04-08-2022 DEPRESSION ASSESSMENT DEPRESSION ASS ESSMENT [facility] Start: 12-07-2021 Influenza vaccination INFLUENZA (#1) [facility] Start: 04-18-2021 COVID-19 VACCINE (2 - Booster for Vinny series) COVID-19 VACCINE (2 - Booster for Vinny series) [facility] Start: 02-03-2017 PAP TESTING PAP TESTING [facility] Start: 02-03-2015 Urine microalbumin profile DTAP,TDAP ,TD (1 - Tdap) [facility] Start: 02-03-2014 HEPATITIS C SCREENING HEPATITIS C SC HAM [facility] Start: 02-03-2014 HIV SCREENING HIV SCREENING [facility] Start: 02-03-2010 PEDS TO ADULT TRANSI TION ANNUAL ASSESSMENT PEDS TO ADULT TRANSITION ANNUAL ASSESSMENT [facility] Start: 2008 PEDS TO ADULT TRANSI TION INITIAL DISCUSSION PEDS TO ADULT TRANSITION INITIAL DISCUSSION [facility] Start: 02-03-2007 HPV VACCINE (1 - 2-d ose series) HPV VACCINE (1 - 2-dose series) [facility] Start: 1996 HEPATITIS B (1 of 3 - 3-dose series) HEPATITIS B (1 of 3 - 3-dose series) [facility] Payers Date Payer Category Payer Private Health Insurance [id number] 1995 Unknown [id number] 2.16.84 [id number] 1995 Unknown [id number] 2.16.84 0.1.524953.3.579.2.593 1996 Unknown [id number] 2.16.84 0.1.215228.3.579.2.593 1996 Unknown [id number] 2.16.84 0.1.079692.3.579.2.593 1996 Unknown [id number] 2.16.84 0.1.535291.3.579.2.593 1996 Unknown [id number] 2.16.84 0.1.443971.3.579.2.1259 1996 Unknown [id number] 2.16.84 0.1.866134.3.579.2.1259 1996 Unknown [id number] 2.16.84 0.1.601048.3.579.2.1259 1996 Unknown [id number] 2.16.84 0.1.234702.3.579.2.1259 1996 Unknown [id number] 2.16.84 0.1.587367.3.579.2.1259 1996 Unknown [id number] 2.16.84 0.1.122507.3.579.2.1259 1996 Unknown [id number] 2.16.84 0.1.840917.3.579.2.1259 1996 Unknown [id number] 2.16.840 .1.709194.3.579.2.1259 1959 Private Health Insurance [id number] 1959 Unknown [id number] Social History Date Type Detail Facility Start: 10-11-2018 End: 06-22-2022 Tobacco smoking status Never smoked tobacco (finding) [facility] Sex Assigned At Female [facility] Start: 06-22-2022 Tobacco use and exposure Smokeless tobacco non-user [facility] Start: 1995 Sex Assigned At Not on file C [facility] History of Present illness Narrative 06-22-2022 Raya Brooks RN - 06/22/2022 9:18 AM EDT Note Date & Type Note Facility 06-22-2022 History of Presen t illness Narrative OPENED IN ERROR documented in this encounter [facility] Clinical Note 08-23-2021 Note Date & Type [...] authenticated by: CARMEN SOLORIO Date: 2021-08-23 14:56 [facility] Discharge instructions 08-08-2021 Note Date & Type Note Facility 08-08-2021 Hospital Discharg e instructions Patient Education 08/08/2021 15:44:15 Animal Bite, Adult, Vwoz-pt-Lfsy Animal Bite, Adult Animal bite wounds can [...] cannot use soap and water, use hand tow mate. ?Change your bandage as told by your [...] a bad smell. Medicines Take or apply qmbl-grb-ltmzcte and prescription medicines only as told by [...] 03/25/2006 Document Revised: 03/20/2018 Document Reviewed: 10/03/2017 [employer] Patient Education 2020 [employer]. Follow Up Care 08/08/2021 14:30:18 With:MICHAEL HELMS Address: [address] [place] [id number] Business (1) When:08/11/2021 15:01:11 [facility] Evaluation + Plan note Note Date & Type Note Facility Evaluation + Plan note No data available for this section [facility] Evaluation note Note Date & Type Note Facility Evaluation note Diagnosis OPENED IN ERROR- Primary To allow closing an encounter opened in error (used in SmartSet) documented in this encounter [facility] Summary Purpose Family History No Family History Records FoundNo Family History Records FoundNo Family History Records FoundNo Family History Records Found Advance Directives No Advanced Directives Records FoundNo Advanced Directives Records FoundNo Advanced Directives Records FoundNo Advanced Directives Records Found Additional Source Comments INFORMATION SOURCE (unrecogn ized section and content) DATE CREATED AUTHOR 08/12/2021 [facility] DATE CREATED AUTHOR AUTHOR'S ORGANIZ ATION 09/12/2021 [facility] dical Specialist DATE CREATED AUTHOR AUTHOR'S ORGANIZ ATION 08/15/2022 [facility] DATE CREATED AUTHOR AUTHOR'S ORGANIZ ATION 11/26/2023 [facility] dical Specialists EPIC Source Comments (unrecognize d section and content) In the event this informatio n is protected by the Federal Confidentiality of Alcohol and Drug Abuse Patient Records regulations: The Federal rules restrict any use of the information to criminally investigate or prosecute any alcohol or drug abuse patient.[facility] Reason for Visit (unrecogniz ed section and content) Reason Comments Opened In Error Care Teams (unrecognized sec tion and content) 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 [facility]. provides no warranty or guarantee of the accuracy or completeness of information in this document.
[2023-12-12 16:48] LABS: Basophils Absolute Auto 0.1 10^3/uL (0.0-0.1); Basophils Percent Auto 0.4 % (0.2-2.0); Eosinophils Absolute Auto 0.1 10^3/uL (0.0-0.7); Eosinophils Percent Auto 0.5 % (0.9-7.0); Hematocrit 37.6 % (36.0-48.0); Hemoglobin 12.6 g/dL (12.0-16.0); Immature Granulocytes Abs Auto 0.05 10^3/uL (0.00-0.03); Immature Granulocytes Pct Auto 0.4 % (0.0-0.5); Lymphocytes Absolute Auto 2.5 10^3/uL (1.2-3.8); Lymphocytes Percent Auto 19.4 % (20.5-60.0); Mean Corpuscular HGB Conc 33.5 g/dL (29.9-35.2); Mean Corpuscular Hemoglobin 29.3 pg (26.7-34.0); Mean Corpuscular Volume 87.4 fL (81.0-99.0); Mean Platelet Volume 11.5 fL (9.5-13.5); Monocytes Absolute Auto 0.7 10^3/uL (0.3-0.8); Monocytes Percent Auto 5.6 % (1.7-12.0); Neutrophils Absolute Auto 9.6 10^3/uL (1.4-6.5); Neutrophils Percent Auto 73.7 % (43.0-75.0); Platelet Count 254 10^3/uL (150-450); Red Cell Distribution Width 13.4 % (11.0-15.0)
[2023-12-12 18:11] LABS: Estimated Average Glucose 94 mg/dL; Glycohemoglobin A1C 4.9 % (4.5-6.2)
[2023-12-14 06:13] LABS: HBsAg Screen Negative (Negative); HCV Ab Non Reactive (Non Reactive); HIV Ab/p24 Ag Screen Non Reactive (Non Reactive)
[2023-12-14 07:12] LABS: Rubella Antibodies, IgG 8.17 index (Immune >0.99)
[2023-12-14 12:09] LABS: Rapid Plasma Reagin, Quant Non Reactive titer (NonRea<1:1)
== END 2023-12-12 16:02 | disposition home or self-care (01) ==
LOC: LAB 16:03
PROVIDERS: PCP Family Medicine; Visit Provider Obstetrics & Gynecology
DX: N92.6 Irregular menstruation, unspecified (principal)
CPT/HCPCS: 36415; 83036; 85025; 86592; 86762; 86803; 86850; 86900; 86901; 87086; 87186; 87340; 87389

== ENCOUNTER 2024-01-29 14:40 | Outpatient (OUT) | payer OTHER, SELFPAY ==
--- NOTE | 2024-01-29 14:13 | US_ITS ---
[address] [address] Patient Name: BROOKLYNN GTZ MRN: [id number] date: 1995 Sex: F Assigned Patient Location: [facility] Current Patient Location: [facility] Accession/Order Number: [id number] Exam Date: 01/29/2024 14:30 Report Date: 01/29/2024 16:13 At the request of: CELESTE JACINTO Procedure: US OB cervical length EXAMINATION: US OB anatomy, US OB cervical length HISTORY: ANATOMY COMPARISON: Ultrasound OB transvaginal 10/25/2023 TECHNIQUE: Transabdominal sonographic examination was performed for obstetrical and evaluation. FINDINGS: Number: 1 Heart Rate: 148 bpm H.B. /min Amniotic Fluid Volume: Subjectively normal Placental Location: Fundal with lower margin seen along the anterior wall, 6.1 cm from internal os. Cervix Length: 4.42 cm , closed. ANATOMY: Normal Structures -cerebellum, choroid plexus, cisterna magna, lateral cerebral ventricles, orbits, midline falx, hard palate, four-chamber heart, RVOT, LVOT, stomach, kidneys, bladder, umbilical cord insertion into abdomen, three-vessel cord, cervical spine, thoracic spine, lumbar spine, sacral spine, right upper extremity, left upper extremity, right lower extremity, left lower extremity. SUBOPTIMALLY SEEN: Hard palate and three-vessel cord ABNORMALITIES: None BIOMETRY: BPD: 4.72 cm; 20 weeks 2 days; 73.10 % HC: 17.83 cm; 20 weeks 2 days; 69.50 % AC: 16.09 cm; 21 weeks 1 day; 87.30 % FL: 3.50 cm; 21 weeks 0 days; 85.20 % EFW:374.55 g; >97 % FL/AC: 21.75 FL/BPD: 74.15 HC/AC: 1.11 GESTATIONAL AGE: Age by EDC: 19 weeks 5 days Age by current US: 20 weeks 5 days JUDE by current US: 2024-06-12 JUDE by EDC: 2024-06-19 US/US OB cervical length IMPRESSION: 1. Single live intrauterine with growth detailed above. 2. Suboptimal visualization of the hard palate and the three-vessel cord due to patient body habitus. 3. Estimated weight is greater than 97th percentile. Electronically authenticated by: CARMEN SOLORIO Date: 01/29/2024 16:13
--- NOTE | 2024-01-29 14:13 | US_ITS ---
[address] [address] Patient Name: BROOKLYNN GTZ MRN: [id number] date: 1995 Sex: F Assigned Patient Location: [facility] Current Patient Location: [facility] Accession/Order Number: [id number] Exam Date: 01/29/2024 14:30 Report Date: 01/29/2024 16:13 At the request of: CELESTE JACINTO Procedure: US OB anatomy EXAMINATION: US OB anatomy, US OB cervical length HISTORY: ANATOMY COMPARISON: Ultrasound OB transvaginal 10/25/2023 TECHNIQUE: Transabdominal sonographic examination was performed for obstetrical and evaluation. FINDINGS: Number: 1 Heart Rate: 148 bpm H.B. /min Amniotic Fluid Volume: Subjectively normal Placental Location: Fundal with lower margin seen along the anterior wall, 6.1 cm from internal os. Cervix Length: 4.42 cm , closed. ANATOMY: Normal Structures -cerebellum, choroid plexus, cisterna magna, lateral cerebral ventricles, orbits, midline falx, hard palate, four-chamber heart, RVOT, LVOT, stomach, kidneys, bladder, umbilical cord insertion into abdomen, three-vessel cord, cervical spine, thoracic spine, lumbar spine, sacral spine, right upper extremity, left upper extremity, right lower extremity, left lower extremity. SUBOPTIMALLY SEEN: Hard palate and three-vessel cord ABNORMALITIES: None BIOMETRY: BPD: 4.72 cm; 20 weeks 2 days; 73.10 % HC: 17.83 cm; 20 weeks 2 days; 69.50 % AC: 16.09 cm; 21 weeks 1 day; 87.30 % FL: 3.50 cm; 21 weeks 0 days; 85.20 % EFW:374.55 g; >97 % FL/AC: 21.75 FL/BPD: 74.15 HC/AC: 1.11 GESTATIONAL AGE: Age by EDC: 19 weeks 5 days Age by current US: 20 weeks 5 days JUDE by current US: 2024-06-12 JUDE by EDC: 2024-06-19 US/US OB anatomy IMPRESSION: 1. Single live intrauterine with growth detailed above. 2. Suboptimal visualization of the hard palate and the three-vessel cord due to patient body habitus. 3. Estimated weight is greater than 97th percentile. Electronically authenticated by: CARMEN SOLORIO Date: 01/29/2024 16:13
--- OUTSIDE RECORDS SUMMARY | 2024-01-29 14:56 | XMS_ITS | CCD ---
Author Organization [facility] Inform ion Partnership [facility] Care Team Providers Care Field Rep Name Role Phone MICHAEL HELMS Primary Care Physician Michael Helms Primary Care Provider [phone] SCOOTER, DR MICHAEL Camejo Admitting Unavailable NADERER, DR MICHAEL Camejo Attending Unavailable NADERER, DR MICHAEL Camejo Consulting Unavailable NADERER, DR MICHAEL Camejo Primary Care Unavailable SUMMER LEON Attending Unavailable SUMMER LEON Admitting Unavailable GRECHNY ., PEDRO BAINS Consulting Unavailabl e SCOOTER, DR MICHAEL Camejo Primary Care Unavailable GLENN APCHECO Consulting Unavailable MORRO ., DR ALONSO Attending Unavailable MORRO ., DR ALONSO Admitting Unavailable MORRO ., DR ALONSO Consulting Unavailable NADJERRY, DR MICHAEL Camejo Primary Care Unavailable NADERER, DR MICHAEL Camejo Admitting Unavailable NADERER, DR MICHAEL Camejo Attending Unavailable NADERER, DR MICHAEL Camejo Consulting Unavailable NADERER, DR MICHAEL Camejo Primary Care Unavailable NADERER, DR MICHAEL Camejo Admitting Unavailable IESHA TORRE Primary Care Unavailable OSMIN, DR CARMEN Aguilar Consulting Unavailable NADERER, DR MICHAEL Camejo Attending Unavailable NADERER, DR MICHAEL Camejo Consulting Unavailable CELESTE HOOKER Attending Unavailable MORRO, CELESTE Attending Unavailable NADERER, MICHAEL Attending Unavailable MORRO, CELESTE Attending Unavailable MORRO, CELESTE Attending Unavailable JULIO PULIDO Attending Unavailable ENIO CIFUENTES Attending Unavailable MORRO, CELESTE Attending Unavailable Michael Helms MD Primary Care Provider [phone] CELESTE HOOKER Attending Unavailable CELESTE HOOKER Attending Unavailable Allergies Allergy Classification Reported Allergen(s) Allergy Type Date of Onset Reaction(s) Facility (3 sources) cefdinir Drug Allergy 3 Rash, Shortness of breath [facility] Medications Current Medications Medication Drug Class(es) Dates [...] day(s), # 28 tab(s), Refills(s) 0, Pharmacy: [facility]/pharmacy #[id number], 168, cm, 08/08/21 14:35:00 EDT, Height/Length Dosing, 108, kg, 08/08/21 14:35:00 EDT, Weight Dosing Start Date: 08/08/21 Stop Date: 08/22/21 Status: Ordered aspirin 81 mg delayed release oral tablet (3 sources) Platelet Aggregation Inhibitor, Nonsteroidal Anti-inflammatory Drug take 1 tablet by mouth once daily aspirin 81 MG EC tablet Take 81 mg by mouth Daily Active FLUoxetine 10 mg oral tablet (1 source) Serotonin Reuptake Inhibitor Start: 10-12-19 take 10 mg by mouth once daily fluoxetine 10 mg, Oral, Daily, Refills(s) 0 Start Date: 10/11/18 Status: Ordered hydroCHLOROthiazide 12.5 mg oral tablet (1 source) Thiazide Diuretic Start: 10-12-19 take 12.5 mg by mouth once daily hydrochlorothiazide 12.5 mg, Oral, Daily, Refills(s) 0 Start Date: 10/11/18 Status: Ordered magnesium oxide 400 mg oral tablet (3 sources) Start: 12-30-19 End: 07-28-19 take 1 tablet by mouth once daily magnesium oxide (Mag-Ox) 400 MG tablet Indications: Nonintractable headache, unspecified chronicity pattern, unspecified headache type Take 1 tablet (400 mg) by mouth Daily 30 tablet 6 12/30/2023 07/27/2024 Active Vit-Fe Fumarate-FA ( 1 PLUS 1 PO) (3 sources) Vit-Fe Fumarate-FA ( 1 PLUS 1 PO) Take 1 each by mouth Daily Active Completed/Discontinued Medications Medication Drug Class(es) Dates Sig [...] anxiety and depressed mood] Chronic Anxiety disorders (4 sources) Anxiety; Translations: [Generalized anxiety disorder] Onset: 07-11-2023 10-11-2018 Chronic Calculus of urinary tract (1 source) Kidney stone 10-11-2018 Episodic Disorders of lipid metabolism (3 sources) Dyslipidemia; Translations: [Hyperlipidemia, unspecified] Onset: 07-11-2023 07-11-2023 Chronic E Codes: Natural/environment (2 sources) Dog bite; [...] source) Depressive disorder 10-11-2018 Chronic Nutritional deficiencies (4 sources) Vitamin D deficiency, unspecified; Translations: [Vitamin D deficiency] Onset: 2022 07-11-2023 Chronic Nutritional deficiencies (1 source) Calcium deficiency 10-11-2018 Episodic Open wounds of extremities (2 sources) Open bite of right middle finger without damage to nail, initial encounter; Translations: [Open bite of other finger without damage to nail, initial encounter] Onset: 08-08-2021 Episodic Other aftercare (1 source) Long-term current use of drug therapy; Translations: [Other assistant terminal manager (current) drug therapy] Episodic Other aftercare (1 source) Other assistant terminal manager (current) drug therapy; Translations: [OTH [facility] CURRENT DRUG THERAPY] Onset: 06-18-2022 Episodic Other endocrine disorders (4 sources) Polycystic ovary syndrome; Translations: [Polycystic ovarian syndrome] Onset: 07-11-2023 Chronic Other endocrine disorders (1 source) Polycystic ovaries 10-11-2018 Chronic Other injuries and conditions due to external causes (1 source) Other specified injuries of head, initial encounter; Translations: [OTH SPEC INJURIES HEAD INITIAL ENC] Onset: 06-18-2022 Episodic Other nutritional; endocrine; and metabolic disorders (3 sources) Metabolic syndrome X; Translations: [Metabolic syndrome] Onset: 07-11-2023 07-11-2023 Chronic Other nutritional; endocrine; and metabolic disorders (3 sources) Morbid obesity; Translations: [Morbid (severe) obesity due to excess calories] Onset: 07-11-2023 07-11-2023 Chronic Other and delivery including normal (2 sources) Second trimester ; Translations: [Encounter for supervision of normal , unspecified, second trimester] 01-22-2024 Episodic Residual codes; unclassified (2 sources) Gestation period, 18 weeks; Translations: [18 weeks gestation of ] 01-22-2024 Episodic Unclassified (1 source) OPENED IN ERROR [...] source) Trichilemmal cyst Onset: 12-31-2014 10-11-2018 Episodic Other upper respiratory infections (3 sources) Pharyngitis; Translations: [Acute pharyngitis, unspecified] Onset: 07-11-2023 07-11-2023 Episodic Viral infection (3 sources) Herpes labialis; Translations: [Herpesviral vesicular dermatitis] Onset: 04-15-2023 04-15-2023 Episodic Results Test Name Value Interpretation Reference Range Facility Urinalysis macro (dipstick) panel (U)on 01-22-2024 Bilirubin, UA Negative Negative - 4(70) +++ mg/dL [facility] Blood, UA Negative Negative - 50 Tres/mcL [facility] Clarity, UA Clear [facility] Color, UA Yellow [facility] Glucose, UA Negative Negative - 2000(110) ++++ mg/dL [facility] Interpretation and review of laboratory results Abnormal [facility] Ketones, UA Positive Negative - 160(16) ++++ mg/dL [facility] Comment on above: 15 Leukocytes, UA Negative Negative - 500+++ Abigail/mcL [facility] Nitrite, UA Negative Negative - Positive [facility] pH, UA 6 5 - 9 [facility] Protein, UA Negative Negative - 2000(20) ++++ mg/dL [facility] Spec Grav, UA 1.03 1 - 1.03 [facility] Urobilinogen, UA 0.2 0.2 - 12 mg/dL [facility] CBC AUTO DIFFon 08-07-2022 BASO # 0.1 103/ul Normal 0.0-0.1 [facility] Comment on above: Performed By: #### C BC ####[facility] [address] [place] [address]Dr. Rasta Gatica Basophils/100 WBC (Bld) 0.4 % Normal 0.2-2.0 [facility] Comment on above: Performed By: #### C BC ####[facility] [address] [place] [address]Dr. Rasta Gatica EO # 0.2 103/ul Normal 0.0-0.7 [facility] Comment on above: Performed By: #### C BC ####[facility] [address] [place], [place] [address]Dr. Rasta Gatica Eosinophils/100 WBC (Bld) 1.3 % Normal 0.9-7.0 [facility] Comment on above: Performed By: #### C BC ####[facility] [address] [place], [place] [address]Dr. Rasta Gatica Erythrocyte distribution width (RBC) [Ratio] 12.7 % Normal 11.0-15.0 [facility] Comment on above: Performed By: #### C BC ####[facility] [address] [place], [place] [address]Dr. Rasta Gatica Hematocrit (Bld) [Volume fraction] 40.3 % Normal 36.0-48.0 [facility] Comment on above: Performed By: #### C BC ####[facility] [address] [place] [address]Dr. Rasta Gatica Hemoglobin (Bld) [Mass/Vol] 13.1 g/dL Normal 12.0-16.0 [facility] Comment on above: Performed By: #### C BC ####[facility] [address] [place], [place] [address]Dr. Rasta Gatica IG # 0.03 10e3/ul Normal 0.00-0.03 [facility] Comment on above: Performed By: #### C BC ####[facility] [address] [place], [place] [address]Dr. Rasta Gatica IG % 0.3 % Normal 0.0-0.5 [facility] Comment on above: Performed By: #### C BC ####[facility] [address] [place] [address]Dr. Rasta Gatica LYMPH # 2.9 103/ul Normal 1.2-3.8 [facility] Comment on above: Performed By: #### C BC ####[facility] [address] [place], [place] [address]Ia. Rasta Gatica Lymphocytes/100 WBC (Bld) 25.5 % Normal 20.5-60.0 [facility] Comment on above: Performed By: #### C BC ####[facility] [address] [place] [address]Dr. Rasta Gatica MANUAL DIFF REQ NO Normal [facility] Comment on above: Performed By: #### C BC ####[facility] [address] [place] [address]Dr. Rasta Gatica MCH (RBC) [Entitic mass] 29.1 pg Normal 26.7-34.0 [facility] Comment on above: Performed By: #### C BC ####[facility] [address] [place] [address]Dr. Rasta Gatica MCHC (RBC) [Mass/Vol] 32.5 g/dL Normal 29.9-35.2 [facility] Comment on above: Performed By: #### C BC ####[facility] [address] [place] [address]Dr. Rasta Gatica MCV (RBC) [Entitic vol] 89.6 fL Normal 81.0-99.0 [facility] Comment on above: Performed By: #### C BC ####[facility] [address] [place] [address]Dr. aRsta Gatica MONO # 0.8 103/ul Normal 0.3-0.8 [facility] Comment on above: Performed By: #### C BC ####[facility] [address] [place] [address]Dr. Rasta En Monocytes/100 WBC (Bld) 7.2 % Normal 1.7-12.0 [facility] Comment on above: Performed By: #### C BC ####[facility] [address] [place], [place] [address]Ol. Rasta Gatica NEUT # 7.3 103/ul Critically high 1.4-6.5 [facility] Comment on above: Performed By: #### C BC ####[facility] [address] [place], [place] [address]Ot. Rasta Gatica Neutrophils/100 WBC (Bld) 65.3 % Normal 43.0-75.0 [facility] Comment on above: Performed By: #### C BC ####[facility] [address] [place], [place] [address]Iw. Rasta Gatica Platelet mean volume (Bld) [Entitic vol] 10.7 fL Normal 9.5-13.5 [facility] Comment on above: Performed By: #### C BC ####[facility] [address] [place] [address]Dr. Rasta Gatica PLT 279 103/ul Normal 150-450 [facility] Comment on above: Performed By: #### C BC ####[facility] [address] [place] [address]Dr. Rasta Gatica RBC 4.50 106/ul Normal 4.20-5.40 [facility] Comment on above: Performed By: #### C BC ####[facility] [address] [place] [address]DrHany Gatica WBC 11.2 103/ul Critically high 4.0-11.0 [facility] Comment on above: Performed By: #### C BC ####[facility] [address] [place] [address]DrHany Gatica GLYCOHEMOGLOBIN A1Con 2022 ADA RECOMMENDATION SEE BELOW Normal [facility] Comment on above: Result Comment: ADA RECOMMENDED LIMIT 4.0 - 6.0 ADA THERAPEUTIC TARGET < 7.0 ACTION SUGGESTED > 7.0 Performed By: #### A 1C #### [facility] [address] [place], [place] [address] Dr. Rasta Gatica Glucose [Mass/Vol] 103 mg/dL Normal [facility] Comment on above: Performed By: #### A 1C #### [facility] [address] [place] [address] [address] Rasta Gatica HbA1c (Bld) [Mass fraction] 5.2 % Normal 4.5-6.2 [facility] Comment on above: Performed By: #### A 1C #### [facility] [address] [place] [address] [address] Rasta Gatica LIPID PROFILEon 08-07-2022 CHOL-HDL RATIO NORM SEE BELOW Normal [facility] Comment on above: Result Comment: 3.3 - 4.4 LOW RISK 4.4 - 7.1 AVERAGE RISK 7.1 - 11.0 MODERATE RISK >11.0 HIGH RISK Performed By: #### L IPID, BMP, TSH, LIVER #### [facility] [address] [place] [address] Dr. Rasta Gatica Cholesterol [Mass/Vol] 234 mg/dL Critically high <=200 [facility] Comment on above: Performed By: #### L IPID, BMP, TSH, LIVER #### [facility] [address] [place] [address] [address] Rasta Gatica Cholesterol in HDL [Mass/Vol] 67 mg/dL Critically high 40-60 [facility] Comment on above: Performed By: #### L IPID, BMP, TSH, LIVER #### [facility] [address] [place] [address] [address] Rasta Gatica Cholesterol in LDL [Mass/Vol] 151.8 mg/dL Normal [facility] Comment on above: Performed By: #### L IPID, BMP, TSH, LIVER #### [facility] [address] [place] [address] [address] Rasta Gatica Cholesterol.total/C holesterol in HDL [Mass ratio] 3.5 {ratio} Normal [facility] Comment on above: Performed By: #### L IPID, BMP, TSH, LIVER #### [facility] [address] [place] [address] [address] Rasta Gatica HDL NORMAL > or = 60 mg/dl - LO W CARDIOVASCULAR RISK <40 mg/dl - HIGH CARDIOVASCULAR RISK Normal [facility] Comment on above: Performed By: #### L IPID, BMP, TSH, LIVER #### [facility] [address] [place] [address] [address] Rasta Gatica LDL CALC NORMAL SEE BELOW Normal [facility] Comment on above: Result Comment: <100 mg/dl OPTIMAL 100 - 129 mg/dl NEAR OR ABOVE OPTIMAL 130 - 159 mg/dl BORDERLINE HIGH 160 - 189 mg/dl HIGH >190 mg/dl VERY HIGH Performed By: #### L IPID, BMP, TSH, LIVER #### [facility] [address] [place] [address] [address] Rasta Gatica Triglyceride [Mass/Vol] 76 mg/dL Normal <=150 [facility] Comment on above: Performed By: #### L IPID, BMP, TSH, LIVER #### [facility] [address] [place] [address] Dr. Rasta Gatica VLDL CALC 15.2 mg/dL Normal [facility] Comment on above: Performed By: #### L IPID, BMP, TSH, LIVER #### [facility] [address] [place] [address] Dr. Rasta Gatica LIVER PROFILEon 08-07-2022 Albumin [Mass/Vol] 3.8 g/dL Normal 3.4-5.0 [facility] Comment on above: Performed By: #### L IPID, BMP, TSH, LIVER #### [facility] [address] [place] [address] Dr. Rasta Gatica Albumin/Globulin [Mass ratio] 1.0 {ratio} Normal [facility] Comment on above: Performed By: #### L IPID, BMP, TSH, LIVER #### [facility] [address] [place] [address] [address] Rasta Gatica ALP [Catalytic activity/Vol] 98 U/L Normal 46-116 [facility] Comment on above: Performed By: #### L IPID, BMP, TSH, LIVER #### [facility] [address] [place] [address] [address] Rasta Gatica ALT [Catalytic activity/Vol] 24 U/L Normal 14-59 [facility] Comment on above: Performed By: #### L IPID, BMP, TSH, LIVER #### [facility] [address] [place] [address] Dr. Rasta Gatica AST [Catalytic activity/Vol] 19 U/L Normal 15-37 [facility] Comment on above: Performed By: #### L IPID, BMP, TSH, LIVER #### [facility] [address] [place] [address] Dr. Rasta Gatica BILI, CONJUGATED 0.1 mg/dL Normal 0.0-0.2 [facility] Comment on above: Performed By: #### L IPID, BMP, TSH, LIVER #### [facility] [address] [place] [address] Dr. Rasta Gatica Bilirubin [Mass/Vol] 0.4 mg/dL Normal 0.2-1.0 [facility] Comment on above: Performed By: #### L IPID, BMP, TSH, LIVER #### [facility] [address] [place] [address] Dr. Rasta Gatica Globulin (S) [Mass/Vol] 3.8 g/dL Normal [facility] Comment on above: Performed By: #### L IPID, BMP, TSH, LIVER #### [facility] [address] [place] [address] Dr. Rasta Gatica Protein [Mass/Vol] 7.6 g/dL Normal 6.4-8.2 [facility] Comment on above: Performed By: #### L IPID, BMP, TSH, LIVER #### [facility] [address] [place] [address] Dr. Rasta Gatica PROF CHEM 8 (BAS METB)on Anion gap [Moles/Vol] 9.6 mmol/L Normal [facility] Comment on above: Performed By: #### L IPID, BMP, TSH, LIVER #### [facility] [address] [place] [address] Dr. Rasta Gatica Calcium [Mass/Vol] 9.8 mg/dL Normal 8.5-10.1 [facility] Comment on above: Performed By: #### L IPID, BMP, TSH, LIVER #### [facility] [address] [place] [address] [address] Rasta Gatica Chloride [Moles/Vol] 106 mmol/L Normal 98-107 [facility] Comment on above: Performed By: #### L IPID, BMP, TSH, LIVER #### [facility] [address] [place] [address] [address] Rasta Gatica CO2 [Moles/Vol] 27.0 mmol/L Normal 21.0-32.0 [facility] Comment on above: Performed By: #### L IPID, BMP, TSH, LIVER #### [facility] [address] [place] [address] [address] Rasta Gatica Creatinine [Mass/Vol] 0.66 mg/dL Normal 0.55-1.02 [facility] Comment on above: Performed By: #### L IPID, BMP, TSH, LIVER #### [facility] [address] [place] [address] [address] Rasta Gatica EGFR-AF TUVALUAN >60 Normal >=60 [facility] Comment on above: Performed By: #### L IPID, BMP, TSH, LIVER #### [facility] [address] [place] [address] [address] Rasta Gatica EGFR-NON AF TUVALUAN >60 Normal >=60 [facility] Comment on above: Performed By: #### L IPID, BMP, TSH, LIVER #### [facility] [address] [place] [address] [address] Rasta Gatica Glucose [Mass/Vol] 88 mg/dL Normal 74-106 [facility] Comment on above: Performed By: #### L IPID, BMP, TSH, LIVER #### [facility] [address] [place] [address] [address] Rasta Gatica Potassium [Moles/Vol] 4.6 mmol/L Normal 3.5-5.1 [facility] Comment on above: Performed By: #### L IPID, BMP, TSH, LIVER #### [facility] [address] [place] [address] [address] Rasta Gatica Sodium [Moles/Vol] 138 mmol/L Normal 136-145 [facility] Comment on above: Performed By: #### L IPID, BMP, TSH, LIVER #### [facility] [address] [place] [address] [address] Rasta Gatica Urea nitrogen [Mass/Vol] 10.0 mg/dL Normal 7.0-18.0 [facility] Comment on above: Performed By: #### L IPID, BMP, TSH, LIVER #### [facility] [address] [place] [address] [address] Rasta Gatica Urea nitrogen/Creatinine [Mass ratio] 15.2 mg/mg Normal [facility] Comment on above: Performed By: #### L IPID, BMP, TSH, LIVER #### [facility] [address] [place] [address] [address] Rasta Gatica TSHon 08-07-2022 TSH 1.521 uIU/mL Normal 0.358-3.740 [facility] Comment on above: Performed By: #### L IPID, BMP, TSH, LIVER #### [facility] [address] [place], [place] [address] Dr. Rasta Gatica CT HEAD WO CONon [...] authenticated by: GLENN PACHECO Date: 2022-06-14 20:18 Normal [facility] PAP ACOG PANEL 2: 21 to 29on 02-08-2022 . . Normal [facility] Comment on above: Performed By: #### [id number] #### [facility] [address] [place] [address] Dr. Rasta Gatica Age Gdln ACOG Testing 21-29 Normal [facility] Comment on above: Performed By: #### [id number] #### [facility] [address] [place] [address] Dr. Rasta Gatica DIAGNOSIS: Comment [facility] Comment on above: Result Comment: NEGA TIVE FOR INTRAEPITHELIAL LESION OR MALIGNANCY. Performed By: #### [id number] #### [facility] [address] [place] [address] Dr. Rasta Gatica Methodology: Comment Normal [facility] Comment on above: Result Comment: This liquid based ThinPrep(R) pap test was screened with the use of an image guided system. Performed By: #### 4 [id number] #### [facility] [address] [place] [address] Dr. Rasta Gatica Note: Comment [facility] Comment on above: Result Comment: The Pap smear is a screening test designed to aid in the detection of premalignant and malignant conditions of the uterine cervix. It is not a diagnostic procedure and should not be used as the sole means of detecting cervical cancer. Both false-positive and false-negative reports do occur. . Performed By: #### 4 [id number] #### [facility] [address] [place] [address] Dr. Rasta Gatica Performed by: Comment Normal [facility] Comment on above: Result Comment: Darline Terry, Bobbin Handler (ASCP) Performed By: #### 4 [id number] #### [facility] [address] [place] [address] Dr. Rasta Gatica Reflex Criteria: Comment Normal [facility] Comment on above: Result Comment: The HPV DNA reflex criteria were not met with this specimen result therefore, no HPV testing was performed. . Performed By: #### 4 [id number] #### [facility] [address] [place] [address] Dr. Rasta Gatica Specimen adequacy: Comment Normal [facility] Comment on above: Result Comment: Sati sfactory for evaluation. Endocervical and/or squamous metaplastic cells (endocervical component) are present. Performed By: #### 4 [id number] #### [facility] [address] [place], [place] [address] Dr. Rasta Gatica CBC AUTO DIFFon 02-02-2022 BASO # 0.0 103/ul Normal 0.0-0.1 [facility] Comment on above: Performed By: #### C BC ####[facility] [address] [place] [address]Dr. Rasta Gatica Basophils/100 WBC (Bld) 0.4 % Normal 0.2-2.0 [facility] Comment on above: Performed By: #### C BC ####[facility] [address] [place] [address]Dr. Rasta Gatica EO # 0.1 103/ul Normal 0.0-0.7 [facility] Comment on above: Performed By: #### C BC ####[facility] [address] [place] [address]Dr. Rasta Gatica Eosinophils/100 WBC (Bld) 1.3 % Normal 0.9-7.0 [facility] Comment on above: Performed By: #### C BC ####[facility] [address] [place] [address]Dr. Rasta Gatica Erythrocyte distribution width (RBC) [Ratio] 13.2 % Normal 11.0-15.0 [facility] Comment on above: Performed By: #### C BC ####[facility] [address] [place] [address]Dr. Rasta Gatica Hematocrit (Bld) [Volume fraction] 40.8 % Normal 36.0-48.0 [facility] Comment on above: Performed By: #### C BC ####[facility] [address] [place] [address]Dr. Rasta Gatica Hemoglobin (Bld) [Mass/Vol] 13.2 g/dL Normal 12.0-16.0 [facility] Comment on above: Performed By: #### C BC ####[facility] [address] [place], [place] [address]Dr. Rasta Gatica IG # 0.03 10e3/ul Normal 0.00-0.03 [facility] Comment on above: Performed By: #### C BC ####[facility] [address] [place] [address]Dr. Rasta Gatica IG % 0.3 % Normal 0.0-0.5 [facility] Comment on above: Performed By: #### C BC ####[facility] [address] [place] [address]Dr. Rasta Gatica LYMPH # 2.8 103/ul Normal 1.2-3.8 [facility] Comment on above: Performed By: #### C BC ####[facility] [address] [place] [address]Dr. Rasta Gatica Lymphocytes/100 WBC (Bld) 29.1 % Normal 20.5-60.0 [facility] Comment on above: Performed By: #### C BC ####[facility] [address] [place] [address]Dr. Rasta Gatica MANUAL DIFF REQ NO Normal [facility] Comment on above: Performed By: #### C BC ####[facility] Lzpebvgddj[address] [place] [address]Dr. Rasta Gatica MCH (RBC) [Entitic mass] 29.1 pg Normal 26.7-34.0 [facility] Comment on above: Performed By: #### C BC ####[facility] Baxvqqtgjs[address] [place] [address]Dr. Rasta Gatica MCHC (RBC) [Mass/Vol] 32.4 g/dL Normal 29.9-35.2 [facility] Comment on above: Performed By: #### C BC ####[facility] Uphcnmnmnv[address] [place] [address]Dr. Rasta Gatica MCV (RBC) [Entitic vol] 90.1 fL Normal 81.0-99.0 [facility] Comment on above: Performed By: #### C BC ####[facility] Vwnydtheoj[address] [place] [address]Dr. Rasta En MONO # 0.6 103/ul Normal 0.3-0.8 [facility] Comment on above: Performed By: #### C BC ####[facility] Ibuuuaumcf[address] [place] [address]Dr. Rasta Gatica Monocytes/100 WBC (Bld) 6.6 % Normal 1.7-12.0 [facility] Comment on above: Performed By: #### C BC ####[facility] Piugombrko[address] [place] [address]Dr. Rasta Gatica NEUT # 6.0 103/ul Normal 1.4-6.5 [facility] Comment on above: Performed By: #### C BC ####[facility] Ivglvazhrd[address] [place] [address]Dr. Rasta Gatica Neutrophils/100 WBC (Bld) 62.3 % Normal 43.0-75.0 [facility] Comment on above: Performed By: #### C BC ####[facility] Aczytkqwqd[address] [place] [address]Dr. Rasta Gatica Platelet mean volume (Bld) [Entitic vol] 11.4 fL Normal 9.5-13.5 [facility] Comment on above: Performed By: #### C BC ####[facility] Yuowccsexh[address] [place] [address]Dr. Rasta Gatica PLT 264 103/ul Normal 150-450 [facility] Comment on above: Performed By: #### C BC ####[facility] Nfnpmokqwd0716 [place] [address]Dr. Rasta Gatica RBC 4.53 106/ul Normal 4.20-5.40 [facility] Comment on above: Performed By: #### C BC ####[facility] Duxaspbxvv9[address] [place] [address]Dr. Rasta Gatica WBC 9.7 103/ul Normal 4.0-11.0 [facility] Comment on above: Performed By: #### C BC ####[facility] [address] [place], [place] [address]Dr. Rasta Gatica GLYCOHEMOGLOBIN A1Con 2021 ADA RECOMMENDATION SEE BELOW Normal [facility] Comment on above: Result Comment: ADA RECOMMENDED LIMIT 4.0 - 6.0 ADA THERAPEUTIC TARGET < 7.0 ACTION SUGGESTED > 7.0 Performed By: #### A 1C #### [facility] [address] [place], [place] [address] Dr. Rasta Gatica Glucose [Mass/Vol] 120 mg/dL Normal [facility] Comment on above: Performed By: #### A 1C #### [facility] [address] [place], [place] [address] Dr. Rasta Gatica HbA1c (Bld) [Mass fraction] 5.8 % Normal 4.5-6.2 [facility] Comment on above: Performed By: #### A 1C #### [facility] [address] [place], [place] [address] Dr. Rasta Gatica LIPID PROFILEon 02-02-2022 CHOL-HDL RATIO NORM SEE BELOW Normal [facility] Comment on above: Result Comment: 3.3 - 4.4 LOW RISK 4.4 - 7.1 AVERAGE RISK 7.1 - 11.0 MODERATE RISK >11.0 HIGH RISK Performed By: #### L IVER, TSH, BMP, LIPID ####[facility] L[address]zjtcnej[address] [place] [address]Dr. Rasta Gatica Cholesterol [Mass/Vol] 210 mg/dL Critically high <=200 [facility] Comment on above: Performed By: #### L IVER, TSH, BMP, LIPID ####[facility] Rlmpxnivov48[address] [place], [place] [address]CzHany Gatica Cholesterol in HDL [Mass/Vol] 61 mg/dL Critically high 40-60 [facility] Comment on above: Performed By: #### L IVER, TSH, BMP, LIPID ####[facility] Kpqkkqrtpw024[address] [place], [place] [address]UpHany Gatica Cholesterol in LDL [Mass/Vol] 114.4 mg/dL Normal [facility] Comment on above: Performed By: #### L IVER, TSH, BMP, LIPID ####[facility] Bhencbkago[address] [place], [place] [address]RfHany Gatica Cholesterol.total/C holesterol in HDL [Mass ratio] 3.4 {ratio} Normal [facility] Comment on above: Performed By: #### L IVVALENTINA, TSH, BMP, LIPID ####[facility] Shoyxnpmdf[address] [place] [address]Dr. Rasta Gatica HDL NORMAL > or = 60 mg/dl - LO W CARDIOVASCULAR RISK <40 mg/dl - HIGH CARDIOVASCULAR RISK Normal [facility] Comment on above: Performed By: #### L IVER, TSH, BMP, LIPID ####[facility] J[address]ipbkhri[address] [place] [address]Dr. Rasta Gatica LDL CALC NORMAL SEE BELOW Normal [facility] Comment on above: Result Comment: <100 mg/dl OPTIMAL 100 - 129 mg/dl NEAR OR ABOVE OPTIMAL 130 - 159 mg/dl BORDERLINE HIGH 160 - 189 mg/dl HIGH >190 mg/dl VERY HIGH Performed By: #### L IVER, TSH, BMP, LIPID ####[facility] A[address]pc[address]te[address] [place] [address]Dr. Rasta Gatica Triglyceride [Mass/Vol] 173 mg/dL Critically high <=150 [facility] Comment on above: Performed By: #### L IVER, TSH, BMP, LIPID ####[facility] U[address]evxdybr[address] [place] [address]Dr. Rasta Gatica VLDL CALC 34.6 mg/dL Normal [facility] Comment on above: Performed By: #### L IVER, TSH, BMP, LIPID ####[facility] Y[address]duczbzj[address] [place] [address]Dr. Rasta Gatica LIVER PROFILEon 02-02-2022 Albumin [Mass/Vol] 3.5 g/dL Normal 3.4-5.0 [facility] Comment on above: Performed By: #### L IVER, TSH, BMP, LIPID ####[facility] [address]ksqqbn[address] [place] [address]Dr. Rasta Gatica Albumin/Globulin [Mass ratio] 1.1 {ratio} Normal [facility] Comment on above: Performed By: #### L IVER, TSH, BMP, LIPID ####[facility] [address]us[address]uxg[address] [place] [address]Dr. Rasta Gatica ALP [Catalytic activity/Vol] 71 U/L Normal 46-116 [facility] Comment on above: Performed By: #### L IVER, TSH, BMP, LIPID ####[facility] Skrilyfjgo[address] [place] [address]Dr. Rasta Gatica ALT [Catalytic activity/Vol] 15 U/L Normal 14-59 [facility] Comment on above: Performed By: #### L IVER, TSH, BMP, LIPID ####[facility] Chryfnfiam[address] [place] [address]Dr. Rasta Gatica AST [Catalytic activity/Vol] 8 U/L Critically low 15-37 [facility] Comment on above: Performed By: #### L IVER, TSH, BMP, LIPID ####[facility] Pedjrrvref[address] [place] [address]Dr. Rasta Gatica BILI, CONJUGATED <0.1 Normal 0.0-0.2 [facility] Comment on above: Performed By: #### L IVER, TSH, BMP, LIPID ####[facility] M[address]erl[address] [place], [place] [address]Dr. Rasta Gatica Bilirubin [Mass/Vol] 0.1 mg/dL Critically low 0.2-1.0 [facility] Comment on above: Performed By: #### L IVER, TSH, BMP, LIPID ####[facility] Epqvyaegrn[address] [place] [address]Dr. Rasta Gatica Globulin (S) [Mass/Vol] 3.3 g/dL Normal [facility] Comment on above: Performed By: #### L IVER, TSH, BMP, LIPID ####[facility] Rmfazpufuv[address] [place] [address]Dr. Rasta Gatica Protein [Mass/Vol] 6.8 g/dL Normal 6.4-8.2 [facility] Comment on above: Performed By: #### L IVER, TSH, BMP, LIPID ####[facility] Pzcjaqdnwl[address] [place] [address]Dr. Rasta Gatica PROF CHEM 8 (BAS METB)on Anion gap [Moles/Vol] 10.6 mmol/L Normal [facility] Comment on above: Performed By: #### L IVER, TSH, BMP, LIPID ####[facility] Fpqqfkkljs[address] [place] [address]Dr. Rasta Gatica Calcium [Mass/Vol] 9.2 mg/dL Normal 8.5-10.1 [facility] Comment on above: Performed By: #### L IVER, TSH, BMP, LIPID ####[facility] Wnrebdvvxd65[address] [place] [address]Dr. Rasta Gatica Chloride [Moles/Vol] 106 mmol/L Normal 98-107 [facility] Comment on above: Performed By: #### L IVER, TSH, BMP, LIPID ####[facility] Fivcatjbui[address] [place] [address]Dr. Rasta Gatica CO2 [Moles/Vol] 29.3 mmol/L Normal 21.0-32.0 [facility] Comment on above: Performed By: #### L IVER, TSH, BMP, LIPID ####[facility] [address]ox[address] [place], [place] [address]Dr. Rasta Gatica Creatinine [Mass/Vol] 0.63 mg/dL Normal 0.55-1.02 [facility] Comment on above: Performed By: #### L IVER, TSH, BMP, LIPID ####[facility] Squ[address]empiou[address] [place], [place] [address]Dr. Rasta Gatica EGFR-AF TUVALUAN >60 Normal >=60 [facility] Comment on above: Performed By: #### L IVER, TSH, BMP, LIPID ####[facility] Bhfiortvkb[address] [place] [address]Dr. Rasta Gatica EGFR-NON AF TUVALUAN >60 Normal >=60 [facility] Comment on above: Performed By: #### L IVER, TSH, BMP, LIPID ####[facility] [address]af[address]xyx[address] [place], [place] [address]Dr. Rasta Gatcia Glucose [Mass/Vol] 82 mg/dL Normal 74-106 [facility] Comment on above: Performed By: #### L IVER, TSH, BMP, LIPID ####[facility] Qqngws[address]ct[address] [place], [place] [address]Dr. Rasta Gatica Potassium [Moles/Vol] 3.9 mmol/L Normal 3.5-5.1 [facility] Comment on above: Performed By: #### L IVER, TSH, BMP, LIPID ####[facility] Dbfbwwtvco3[address] [place], [place] [address]Qb. Rasta Gatica Sodium [Moles/Vol] 142 mmol/L Normal 136-145 [facility] Comment on above: Performed By: #### L IVER, TSH, BMP, LIPID ####[facility] Bweqmzekdr[address] [place] [address]Dr. Rasta Gatica Urea nitrogen [Mass/Vol] 11.0 mg/dL Normal 7.0-18.0 [facility] Comment on above: Performed By: #### L IVER, TSH, BMP, LIPID ####[facility] [address]ib[address]ze[address] [place] [address]Dr. Rasta Gatica Urea nitrogen/Creatinine [Mass ratio] 17.5 mg/mg Normal [facility] Comment on above: Performed By: #### L IVER, TSH, BMP, LIPID ####[facility] Ybrprxsmjp6894 [place] [address]Dr. Rasta Gatica TSHon 02-02-2022 TSH 1.214 uIU/mL Normal 0.358-3.740 [facility] Comment on above: Performed By: #### L IVER, TSH, BMP, LIPID ####[facility] Ivnppfvlvk[address] [place] [address]Dr. Rasta Gatica VITAMIN D 25 OHon 02-02-2022 VIT D 25-OH 28.2 ng/mL Normal [facility] Comment on above: Performed By: #### V ITAD #### [facility] [address] [place] [address] [address] Rasta Gatica VIT D RANGES SEE BELOW Normal [facility] Comment on above: Result Comment: <20 ng/mL Vit D deficient 20 - <30 ng/mL Vit D insufficient 30 - 100 ng/mL Vit D sufficient >100 ng/mL Potential Toxicity Performed By: #### V ITAD #### [facility] [address] [place] [id number] Rasta Gatica MRI Hand w/o Righton [...] 09/12/2021 1107 Normal [facility] [employer] Assistant ED Note-Physicianon 08-12-19 22 ED Note-Physician Basic Information Time Seen: Jerman MEJIA, Isi Ratliff 08/08/2021 14:38 Chief Complaint Middle finger lacerations [...] day(s), # 28 tab(s), Refills(s) 0, Pharmacy: [facility]/pharmacy #[id number], 168, cm, 08/08/21 14:35:00 EDT, [...] or concerns. Medicat (more content not included)... Normal [facility] Comment on above: Result Comment: Elec tronically Signed By: Isi Stoll PA-C\.br\Date and Time Signed: 08/08/21 18:06 EDT\.br\Electronically Co-Signed By: Sourav Stinson DO\.daphne\Date and Time Co-Signed: 08/11/21 07:27 EDT Animal Bite Investigationon 08-08-2021 Animal Bite Investigation [id number]# 1.00CD:127 [facility] Coding Summary.on 08-08-2021 Coding Summary. CD:[id number]:[id number] G h0bWw+PGhlYWQ+NG6ALEV bQ66jzXNpjI8MN9kBED4N CALOFPUJTM2AGL0raVQ0O GutE8ActiZt BjbcgBZvJD16QIh3WTC8d PacGCtyyY2dtUPtK1o9Gn QmKZ21lL44VWefLSKyAhA 3LjZpbjsgbWFy B9xlNrFjnRCbQyn+PHRhY mxlIHdpZHRoPScxMDAlJy RzcEsrHU8vTa2dHZCsKMI vbGxhcHNlOiBj f8bjQLOqGDntPP8tmScsP 4OxjCA4TPQqg4e3Zp03bP I+MKXkRES9rGdsFNasc82 1IxCic6zxYYI7 uFWgFZncKLL8S02su4F8U PGzHDYoEPI2xRJ7qV1tsX frforoP2YfhMUpNgZ9ICI 9vOXdiO0lgIku yqrojW7yWpq+U17TDN4GB ABBDX7KMlg6B5DxIdjdmI I+XE90UEGmNC21yEAqzYZ mm3wfuNg9GwYe IBVjSOD7lIbhNSxgb1ZiF ZTtV52luEMql5Y4SNQiiH tksUBfMbOgtQW6rB5eSYb rskjxg1itgrid Vvdri5yenb09cP15F36tU ZybSDMiALN8RDEmVSJzrV crmq8xgH2fWa0+GWixd0w uq3gcgFh2CuCm PKGcqnHbfVmfFZA5p6JsY x49R5KoqMhsb5DaOth2os 87iZPhm1G2zJB2NEmjFDW ndY4mPEciUqA4 KHZtOwIsaT31vVIrQLqcZ e5usVlojBgsVF1hVYAwnd ybELBkuB5uLUPxtXKpdWp pYP8oSMAfqaob p550WgDaBIU7WKNmtPOmB 3XjpA7rZnXkDXQjNARrV6 QoxJGuAQzmU090XOynAnV 1LOYxsvEhF1Et QSBxwUxeYnW7u1J5Px0Ql 0OrtzjcPXJ2LVmjXQO7Rd WuLqPsXmU1P5MzIuv8YVI uqKcvBT7tO4Wl LMRtuqxmywycqVN6FRXeV GNgcV04pLEqWEdqYc6rq3 O2i732AFJqYCEfoR38Qs7 udDogMTBwdCBU pC0ohvefr2ilqvnuDnXeI MYhODw7LDv2GOBopHegVn OlIIE4YtI6GJS8cKMxjW5 aaBupjpqtaX8o Oyc+B78igW6oRYM6JFO2f nuuNTLgiiGfOO75BF41H7 RyPjwvdGFibGU+PGRpdiB ppNxvML2nAhMj n6umf6LzPIyeZ7KtKTXoM WvnHqb3UNFwVJR7kDW5oL 9iVTCfOPejx7P9nDW4H8K yliBtki5ke9pv XHAfYSyzW01axEAgs4G8B SLqyTA2DLIceYgqPyChiE 93Oyc+DXSmlVqov9JrMtc we6gao3pfhXk6 PpFdRMDxlmGkiAkiYXT6j 8FwVa61B50fMRorRJIoZG CkZLTyGUJfyVyosh1dsF8 wIi8+PGNvbCB3 pGU0uK8eMHIpKzT1DRqrM 699JsNwvEEqPvxhc6ecf2 rubIn8MtMoSFGxacKlsGm nKPO6u8GyPw39 M22rXDfjNKNzRNVcJGVmH PTrfItcrh4ozJ5sMl1+PC 1ij5xemy69fA59wGW+PHR kGGA4vAjcQTgw EPGzyG1nOPniEhG4VDCaM oPbcO99dTDiDAnuZq6shH rxbWakBW9lLCGfqlqde28 6MaXgv6odSRXb fFDeBQvjVGO5O30rp1A8S AGdXDElTKC2gBR2dI3jkS lnbjogbGVmdDsgdmVydGl lNFgcWYnoA948 IHRvcDsnPlBhdGllbnQgT iDqXTx3H1VvOil0GWJkmT uoWR9otBNqXEhsGp5fbZe djLyhMG7sWABx uvucj723TbFwu8lrBPQoz PUrIRdqLGV0R60jb8G9BA QzWMTvTKU3eJC2kV8mcVb nbjogbGVmdDsg jpRtyJbsDIgqFKpzI205K HRvcDsnPkJpcnRoIERhdG W7NL92AW47bWNdv9X1uLH 7P2BhOIPoixrn hzhkjXL2MZBrQREbaN90Z b4ieLrkCy2mUKJxGVY7CJ EnsATlC2XapC3fEpSuAWV oEKKoJ6MlxRWv AOlpS822HWqaMdG3RCHzq uZlO4QiPDLutEziTvX3c3 G7Rk5FJ0A9RA10WQ17lNB ys0V7hDQ6O0Wj GTYvtwhlkgnduEU4CYVrC BMgfY51Ni2jgOztQi0eUS ZdTPZ6ITXsfKSwP8FvjW2 yOiAjMDAwMDAw U8IleFTvJZhuF859XHcaE gS4LURrudYnK5WePSNwsU zbGfL9a8V8Bw4RUPz6QV9 2PZ63qSWrl6U9 eDV7S7DbEONshwgdbujlp TF9TPDjFSFdzN82Zl1xmI ewFh6lTASeHQP4CXFuwWZ rM8AaeK7vHjTk HZXhSEPsM6YmbGWjWCfrM 000CWgrZfZ3LPRveoLjD0 VlRRImlMqvQvU3a7V1Ec4 ITLQrJC31EDJ6 yCC1AW57YC63H8JuSrmda GFibGU+PHRhYmxlIHdpZH RoPScxMDAlJyBzdHlsZT0 wPe3xXORkSZQq cUvkwTPxLjQyi8tfXTZrN UruQB0zcEzgV2IgyEI6GL Kkq2u6Lm26Z74dH3ChdJU +BOCkcHJ5hYF0 eB2eHlGmRaZ7KBzmZ641E dZwqIOeTlxtw2qeu3cteG p5YbI7UEMbaaMopWnrYUQ 2p0DxNc55W90s IHdpZHRoPSIxNSUiIHZhb Ncybu9gaM4sLm8+PGNvbC O2eDA7qI0uAmGiIhS7CWl kW039VzGzwVXf Zmdxa3mwd3fwrMp7SuUbB DRrlbFclHvoBWB8x4RfPa 94H9ValGzxv4HlVvg4hf6 1fZSeg5R2wRR1 M2DjGBLbflfzcXSfmLydY E4yNWDwefjgJSWuyG6yTE RzS3w1VlXoSkK1SNdqX8X nbsG1BPFidYWd BUraNAU8F01wj6U2BZKtJ SAbZOL0iGZ1rE5uoSasfi ogbGVmdDsgdmVydGljYWw tIMabC057RUPt nYhrFWPzhN5wGLOtoGBqg IpsUT9bNRBehjcaNtPLFI XIKBJJKWbFOYSYIZ87JY9 3gKNba9K6bUN5 C9TjAIUnuqegyvurjUF2H JFbDAGtnD62qIKyXZbtGh 5dz4X3v478XQBkLUCrdN2 8Sj4qwZcaFYXx aXKKgI5hiiahw5hjwdqbT bOpGPTqJNi2DKa4QWYxjP lbFcAeGEA5GzJ8FQU0zFS bvS9fzBchgaop nW6tMzr+NEOjYalxARi2O jwvdGQ+BARjUKM7eYanXM idYOOwyQ5bRVFwN3l8ZgB zFeT1BPptP7Qk HIZiqzpyLy65mS4wCtFmN tH4QRitL5JobzR5EXYgwW LyWChtQGB6S94ml3U6WJE aYMAoZRP9vQO1 jL6atQeoposwlHKooQxqi nEnfDuuJDycDTeaB523KQ HdxApbOyM8BXqdREVbHC5 6XZ88pVVla6B3 hLY0Q7ZaPONlcniettbdt PB3NZFfFJXqqH41zMQcXX kuRk6zp8R2f861EJHvQWP quY90Jx2tsDvh SBWmeXHDjQ9ihncux8ynp irnToHxSMBoTWm1KSr0ZK LdeNvhBxEhGUG5TtQ3JEY 1uKTrvM2noZmm pyinzR3aFdy+RmVtYWxlP E26LD54zHYjr1V9rVF6N0 SpJUMwlahchlwxxEI8WWV pMNMjeV50wNFw GXkuYj3tp5V0d294TTElY RSwfV37Fh8dsDzqTEHicL CQsR9netier0uxliztUoH lNNYmLEg6VYe8 BJKuoGbnCiJmQYD8RoY9C JT7yDVvxP7qpHfegdfsiI 9wOyc+GC1hntumtaV7JT5 4UZ10E7AkOpjy dGFibGU+PHRhYmxlIHdpZ HRoPScxMDAlJyBzdHlsZT 6gBo3hEKTyYGHymSqeiVJ aUsHaf7ifIFXw NHdqWG5wtQekF8OwyIC3U LTxi4j6Mu97E20nK3UydH A+VZUqhYI1fZY7gZ7nRaW sPjR4MDlsN565 CfQplBIbZgiow7yuw4fio Tp0BoWcEEZdalKrxXmzRB T0o7AoPc22X76lMYzbDRE oPSIyMCUiIHZh dAtmjv6opJ2nFq1+PGNvb PW0eVO5mN4cKxZhPfY4YD lbY721WhRoyVEfGbtcK56 fG6LipEA+PHRy Vur1BVAuvWhpAQ6lwBTcH KuaAi4gQOH0LnVwOaZsHK keM4VkDHCnufvmpllpmDV 5FJKiBJDthI07 Od0vjQeoBe8iVEDkMPB7G NOvlXFrG6CcqB0mGtWkHH GgLHTjW3EpjSRiLXmoJ38 4ZKkhFiC9JQCx veGeJ5PcNMSknGwoHuV8w 9A0Ie7QlRibaMHdRI1mHg HqJXz2C7RxAlb2QZQauNq eCE0jnITmKBer Uy4iaTeoeTkbEB3fMRCxk lwep849KgJdo6jvQXDgoQ NtHYxsUQS7M42kr1C0NQV uNZBhKVM9iEJ0 jY6jaKavlfokzDPbcStkp bLhoCiiIGveZLzjR583SY NvgInzKkEKXpa1G2XtJcb 2DMDmwOazMU4m yZWaHHydYv4vaHsyfBybZ E2zAUNxzerjx935RrVdb1 vqIZAtlXAvNQgnMEQ3U99 fg0D1RDRlCUOd YVI4zUQ1zD6ewKhnrsmsh GVmdDsgdmVydGljYWwtYW irM638VCTzlDgiMf3EGqp 7O2HgIzs0YRFi uPivJX5wzWKqDDhlYt7rs LlftVwkCH6gHLZmtiavj7 37AuHsn4hsMAOgqVFfSNp nLJE1P09sj5R9 DCQfNIDeEWM5oLO3sO3nd GlnbjogbGVmdDsgdmVydG qdNSmhJNrjE829YDCojHj nPlBheWVyOjwv dGQ+XP65sw47H9EgMtgjZ wq6BEYyNBK5cUI8aE7jSM HcMQtzz2R8cTX2C2SfwlP thv7ty9btHQOk [employer] (more content not included)... Normal [facility] Consent for Treatmenton Consent for Treatment [id number]#1 .00CD:[address] [facility] Discharge Instructionson Discharge Instructions [id number]# 1.00CD:[address] [facility] ED Clinical Summaryon 2021 ED Clinical Summary [place] [id number] ED Clinical Summary Person Information Name: BROOKLYNN KENYON [facility] Age: 26 Years : 1995 Sex: Female Language: Jamaican PCP: MICHAEL HELMS MD Marital Status: Phone: [phone] Visit Id: Visit Reason: Dog bite: hand; [...] 08/08/2021 15:44:14 08/08/2021 15:44:14 08/08/2021 15:44:14 ADDRESS: [facility] [phone] PHYS DOC NOTES: MEDICAL INFORMATION: Prescriptions Given: New Medications [id number], [address], [place] [id number], [phone] amoxicillin-clavulana te (Augmentin 875 mg oral tablet) [...] PATIENT EDUCATION INFORMATION: Instructions: Animal Bite, Adult, Zzkc-xj-Axip Follow up: With: Address: When: MICHAEL HELMS [address], [place] [id number] [employer] (1) In 3 days 08/11/2021 DIAGNOSIS: 1:Dog bite of middle finger; Bitten by dog, initial encounter Normal [facility] ED Patient Education Noteon 08-08-2021 ED Patient [...] cannot use soap and water, use hand tie knitter helper. ? Change your bandage as told by [...] bad smell. Medicines ? Take or apply hzlj-epy-kqmogkk and prescription medicines only as told by [...] Document Reviewed: 10/03/2017 Elsevier Patient Education ? 2020 [employer] Normal [facility] ED Patient Summaryon 022 ED Patient Summary [place] [id number] Patient Discharge Instructions Person Information Name: BROOKLYNN KENYON Age: 26 Years Arrival Date: 08/08/2021 14:29:26 Discharge Diagnosis: 1:Dog bite of middle finger; Bitten by dog, initial encounter Primary Care Physician: MICHAEL HELMS MD Provider Information Primary Provider: Sourav Stinson DO Advanced Barrel Raiser Helper:None The exam and treatment you received in the Emergency Department were for an urgent problem and are not intended as complete care. It is important that you follow up with a doctor, nurse practitioner, or physician?s mail handler assistant for ongoing care. If your symptoms become worse or you do not improve as expected and you are unable to reach your usual health care provider, you should return to the Emergency Department. We are available 24 hours a day. BROOKLYNN KENYON has been given the following list of patient education materials, prescriptions and follow-up instructions: Follow-up Instructions: With: Address: When: MICHAEL HELMS [address], [place] [id number] [facility] (1) In 3 days 08/11/2021 In the event that this physician does not participate in your insurance network, please consult with your insurance company to find a nearby participating provider. Patient Education Materials: Animal Bite, Adult, Njoc-gn-Ufug A MESSAGE TO ALL PATIENTS REGARDING OPIOIDS PRESCRIPTION OPIOIDS: WHAT YOU NEED TO KNOW Prescription opioids can be used to help relieve sbeigjmo-is-osyflt pain and are often prescribed following a [...] be struggling with addiction, tell your health child care giver and ask for guidance or call [employer]?S National Helpline at 3-760-991-JW (more content not included)... [facility] Coding Summary.on 02-24-2021 Coding Summary. CD:[id number] G h0bWw+PGhlYWQ+JU2OCSL hI64qiPJwgW4QK6oTDP3X MLDOYABVOG7QQY1ycCY6B FulR4CjvlMw BnrqlPVvXS40MGz2IEX6o UwcMGpwnP9dhXAsW4q6Dr OtMJ31qU38OQxcOXRqMiL 3LjZpbjsgbWFy C7iyNkYjpXRwQvd+PHRhY mxlIHdpZHRoPScxMDAlJy WaoLqjXB0sDy0kJKVhAWY vbGxhcHNlOiBj p6skEDRsVSefOA3xyAmhX 3SyvYI9RIQrh3u4Zd28mT I+SPPmKSN9vDkrSBfwg62 7AfQyv6djSEP2 nBWgKBorQMC5J13nh0J7V KZnESDvRDC8xND4eQ0pbI wdprvoS6GduXAfAgR0GJK 8tGOmaD8prPca ksravO1aEhf+Z72YEG1KZ VQQLT6IIag4B1GiXhjiiS I+UB39IOYwHF02dVAtlWZ qy2mnkCg6VpHb BOXcXKM2nHebKWbpn8SqM CVaQ95yzAFyw5T9OXReuW igtBCfQoOclPM9dF0qVIy dosmcb6webhhx Meemy6hach23qC01I42tT OvzWDWxYUN2SEQfDSQqfX uevx2zuN8eQr5+EBvqm2x nn0jlbVd7YxBq LSEtkqWlyQlnQRX3o4FtP i48D1IekLxxo6PeZme4ve 04wPUfx9Y6lVY7WKtgVMH tsQ7mMVqpAwQ8 MZZtEuSxrG60tGKwVTpyV r0udHgmzLwpKJ3iDZNzbj mbNHDhvB4dAIIvcKNdzGs bYG8oHPCmyvui m653BzPnEXG6PHCzoEWeG 5CjqW8nKbSeMVGeYDTmL5 AicUJqBRbdO994VJtiWvT 9YJDvzqNbK9Mx CKEbfRrhUiD2w9A3Gt8Nb 2GrkboiLWR0WGjyBQLjXj S0HpFyTsD0P5LsGai8WNW qiTkrEC7cZ6Dc DQOoscswwovjrJR5NAVuP ISapW33eLCvAGpsPj7dc8 K5w564JQJhGDZviE33Hj8 udDogMTBwdCBU kA0quicet5loouiqYhDkL HBhWLf4KOw3IZPlfYxmYf CiNTR9TbT7QYM3nSOswT0 noOtcookrwD5v Oyc+R38nrM2zYJK6ZZS7a dgaMYVpluTwXH53JY38M3 RyPjwvdGFibGU+PGRpdiB wgBsuLA8eKwFc f5yue8YjGRagT0NzJVDeI HmmGph5FTRpYZY5zXF8eJ 1lBHRgRCkyg9Y8jOK6N7X zznTsof8ax5my STMgBTtoI77ewSKyn2O2F BEhyNO0ZLXkwPprKqMotG 93Oyc+ZUUyoWttd5AxKdk tw7zpf3tbhAx1 YuUsKDBbkbYvbSvkKHC3l 4XxOx64J20cUCboBDVvJA OaKAFwKCKqkNicxm0rgE9 wIi8+PGNvbCB3 zFM5oM6gYHOdCpE4MSxtR 171KcIybPRrDeque1yai7 jmyAe5IsJxOSGmshTkbAa xRXZ6y5MiMx92 O78qLEvgGMDaFKJsCJVeK ZYcuFjfqh6vkG7wLm5+PC 6cm5rkhj71vJ26tRX+PHR wPHJ2sEucFGjd VQOvgH7vIAueKbO7ZMVjS zXnxH49mLVnXLawKr8tlP dflSoySQ2xHJBnvewnd44 0ScLwl3mxJYGc aGOqOEhnXPQ9F92wf8L2D VFsVQZoQFG4iMT2xK2mdA lnbjogbGVmdDsgdmVydGl bCQrhJHjeK513 IHRvcDsnPlBhdGllbnQgT lWcNSj2D8BfGcz4NRUfzU bpEY4grFWxITbcCl8qvYa leVfxKH8tLNKh kpeob764QpYtl4apUOCzv BEaTRnrXJC8G81gb6V9VK JjINItZVB2zOV0hY4ybHa nbjogbGVmdDsg qfNkeXkzKJvdBOwjT960I HRvcDsnPkJpcnRoIERhdG C8ZQ70TN51gUGpy7T7oHY 1Z3DtFYNtkpxu lmfzvWH5ISHlJQEncU51F p5deXxpKj7jHENqMDC6WO RyvWBxA6JvkB5hOuHmZPR nQPKcY7TnjUXt ZDzzH476HYoxXiF5FJAgc sIkR7JmSCVhlYanNwM6m4 V9Zf8PT3E2GM40QG74vDB kk7G0aXR1F3Dm FPSsggkshmnxoEG9SQDtZ KOpaN08Uj1ldEctYh4hCA CuUTR8EIVygQIkO9NmnA3 yOiAjMDAwMDAw X3HvuMGzYSigK895MStqV kF8VVPqzmZjG1WxZMXdnK tmUvT6n6E7Rz5DHVk1EM4 9OS55tKQpe5H3 lDH9O2SyOIElukpipephc VQ4QQHvEOVnvK15Sq3wiJ fmBt6fEYBtIRP4NZIjiWL hZ7PvpK7lEzCc XJPuTNOuQ1AegTQbCCkwL 024DWzyCtM8KDEgzqKgL0 ShJFHcrVjaYmQ1j1O0Nd4 RJJGdST16YIL6 aOV6QN03EM32D9VoGrsvd GFibGU+PHRhYmxlIHdpZH RoPScxMDAlJyBzdHlsZT0 hHc5bTSYvLFJl gRpyiORpDnIax5aaIIDxO EgmQK1cqXedF0SkiVB3TX Mlh1s2Tv98U34bO5WpxHC +UAShgUV6lLB9 cU1aPzUsLsD6KHajW945S bFueZPcHevxf1yuo6cegQ m8BiM8JSPbgjLxsLuvNYR 2l7AuVi93T35k IHdpZHRoPSIxNSUiIHZhb Jcafg3nsI6lKm2+PGNvbC W5kGF0qB9fRcGaEsD1UXt sX098NdFuhTCx Zsbvs8fee9irdWx7UkSzC TDvzaZeyIqbTUU3y3FuJo 71D4FeyMdmn6KoMtn7de2 9cQLef6Z3kKQ4 G7CmSCGwpsuomALouWoyH S1nJWVlwdzzSDYtrR1tDM EkF7d1McWnUdL9HSdqE0F xleW0IMMcvZPi UXhlEKU2L46di6J3PYBnC OJsBPY5dEF0yK5heLzcqz ogbGVmdDsgdmVydGljYWw yWUbvF089QZZl vDjsPHFbqM7kWTXyyDBgi OygWM6tOSOjlpztBoSRBI QHKESBEYdTYSOFSI45DG6 1qRIdv7S8vME3 B3GrKFCltkfvkpezlNO2M VKmIRZkoG80pJNiLHhkQw 0xu2Q5u678CFHfSYEfjA8 8Jx4xbLogFQZb dIZEdO0pkhhkf5mdqgcvW lXaFOBvNUr6HNx1EYIqgI oaExAwLYI4IoH5VLP6wOJ cqK9srXmejbay qR0fMph+QWRyFdjyNKo9M jwvdGQ+YYMqLVO6zAsuHA oaHAGkxR8xQHSoJ6l5PqH iCtL5TOqsN7Vx JEAfhqwlSx57yO5sRiJiZ lY8HPwuQ3IaqoU2CSYvqR VtEWalCVR9V04ld5I8AYG eGEPfFCI4bLH1 oN0yzLefjqodnKIgqSuou oOagFztULnaPQncH375EJ ZdyByuMhH5PCnuVVKbJM8 7AX06rFZmr7R1 aCX1U1SpXWXkjuqhfkmal VV7WNNiNGWliU95iJKfMO dzQx8uh5X7n055AJRnRNL smO84Dx8lrAkp GTLmcWZQoW2vmgmek4rrm dedAtGcPEJsCDk2LLw3RU ZxdWbeNuZfJHP1SgK5BEE 9dLQveN5dsVue rdqosT9rSjy+RmVtYWxlP L45XP18vIPgm9J2vGD4U8 OzXLEgpwxazleylCC7XDS tQWNwpK34gAZl RYrbHm2xo8W6o756UYPeZ LSzhT35Jr6uvHqbWJGmqW XChV4jkomyb1watvxpKqF dLZHjKDj8ECb5 XEEinEbvIbCxAJS5FvH3X WT9zRHxjK2kzQxattfmiE 9wOyc+MJ7iczxzvqN3CH4 6BI61Y9OgIyuo dGFibGU+PHRhYmxlIHdpZ HRoPScxMDAlJyBzdHlsZT 6hQe1rGHXfNLOojIuslNC eUhIbf4iqMUVt UHeuXW5ldHegQ7VgeBX4I VVqh7o9Pn95N00mP4WpqG A+OZAymLW9eOW9pF9wIsC nRbA3CQbbF317 UlGwlVXvBvoyu4ekb0sni Vt4UyThTKFsfaJjhKhjRE O4g8RpGp82X26cGZbyOAU oPSIyMCUiIHZh pJczml7ioT3tYd0+PGNvb AK5yUL9nI7qNdZbOgU5MR tjG794TuAdmIZnKwmqM19 vK4DgjVS+PHRy Jxp6PKBzvItbJA1ntGXtT HhhQe7xSSS6ZeVzFgWcBM usA6WqWLGxgmwukpdmxHH 2IIMtHTCazE76 Uy0ekXpcIf6iCOQcNPQ8S QQmhHUfF5UflV7zUiZaAW EbRMAfE3UagUQiFPwgL17 4SMlrFkY0VDIl trHsY5NvHCXrmWboZhY3d 7J3Os9ZxEetqMWbJO6qUa ErZCd4I3YgKig5VLHouDl eHQ6faZKlHVzw Jw1bvNwksVrsIR4cQXJgm vupe041RsEuo9qmFAEnmX KkSIzvTIE1O10ky3M7VUH dXULuYFJ2gWG3 xX4dfMytezfbzFGkxXpal gImdPtmHZemVQuwX760MQ PtxJctRuQJGhg2O3RiMay 8DWPyuLqoVO0o aPVsIOioKv8uqXhqwAfgN J8zXKPjludbl296JrTcu0 mbZSEobIVrIJoqJPE1K86 er7K3UDMoMQSw QRH5aKF1wK0vuVkynskbx GVmdDsgdmVydGljYWwtYW zmY365XHThqNmfGi8RZxe 4J5FrAvk2VSBx tJdaBB6chGFtKSwmBu2ns BkkcWdmEE3jLMOyfdqwf8 28IlNxs1wjXCWfqAQvMHn fETB6M89pr7W4 NOPpIHRdUEJ1sUI5nG3tr GlnbjogbGVmdDsgdmVydG kiZQwkHWlnC595XVNukDu nPlBheWVyOjwv dGQ+JX93uu35C5UvMnisX tv8PJGrRWQ6uDL3aC8kNJ OsATpfb3Q6uAJ9U2XdbgY uax0qk9itCYLm ZTog (more content not included)... Normal [facility] .Manual Abson 02-23-2021 Basophils/Leukocyte s Manual cnt (Bld) [Pure # fraction] 0.0 E9/L Normal 0.0-0.[address] [facility] Comment on above: Performed By: #### 2 253242, 51594690, 05092533, 40668971, 1969042, 5681550 ####[address] [place] [address] Eosinophils/Leukocy kenyon Manual cnt (Bld) [Pure # fraction] 0.0 E9/L Normal 0.0-0.[address] [facility] Comment on above: Performed By: #### 2 007397, 31597267, 38087010, 69894144, 0532518, 1689618 ####[address] [address] Lymphocytes/Leukocy kenyon Manual cnt (Bld) [Pure # fraction] 1.8 E9/L Normal 1.0-4.[address] [facility] Comment on above: Performed By: #### 2 618898, 38703878, 88603718, 69150793, 8130319, 5734998 ####[address] [address] Monocytes/Leukocyte s Manual cnt (Bld) [Pure # fraction] 0.3 E9/L Normal 0.2-1.[address] [facility] Comment on above: Performed By: #### 2 547250, 96495020, 51907541, 65607015, 1475790, 0170143 ####[facility] [address] [place] [address] Neutrophils/Leukocy kenyon Auto (Bld) [Pure # fraction] 1.7 E9/L Low 2.0-7.[address] [facility] Comment on above: Performed By: #### 2 580958, 91771136, 31136486, 45909971, 7851484, 0286456 ####[facility] [address] [place] [address] BMPon 02-23-2021 Creatinine [Mass/Vol] 0.7 mg/dL Normal 0.5-1.[address] [facility] Comment on above: Performed By: #### 2 451342, 78541071, 89657388, 59482604, 4038807, 4745979 ####[facility] [address] [place] [address] Urea nitrogen [Mass/Vol] 7 mg/dL Normal 5-[address] [facility] Comment on above: Performed By: #### 2 135068, 02959390, 72236285, 46463485, 5645776, 7467429 ####[facility] [address] [place] [address] Urea nitrogen/Creatinine [Mass ratio] 10 No Units Normal 10-[address] [facility] Comment on above: Performed By: #### 2 891183, 79717159, 81122615, 97671599, 3691375, 2945534 ####[facility] [address] [place] [address] Anion gap [Moles/Vol] 13 mmol/L Normal 6-[address] [facility] Comment on above: Performed By: #### 2 757538, 80733693, 71336613, 63073524, 8879227, 1775519 ####[facility] [address] [place] [address] Calcium [Mass/Vol] 9.0 mg/dL Normal 8.9-11.[address] [facility] Comment on above: Performed By: #### 2 943796, 68316374, 76635418, 67428918, 7453367, 4328624 ####[facility] [address] [place] [address] Chloride [Moles/Vol] 103 mmol/L Normal 101-[address] [facility] Comment on above: Performed By: #### 2 047936, 32035777, 82683228, 06349735, 5681166, 8222407 ####[facility] [address] [place] [address] CO2 [Moles/Vol] 22 mmol/L Normal 21-31 [facility] Comment on above: Performed By: #### 2 933491, 33583509, 92940281, 90540223, 6857842, 2689885 ####[facility] [address] [place] [address] Glucose [Mass/Vol] 129 mg/dL Normal 55-[address] [facility] Comment on above: Result Comment: If t his glucose result represents a fasting glucose, interpretation should refer to the following reference range: 55-99 mg/dL Performed By: #### 2 578166, 65920582, 56322335, 79110659, 8996167, 8148585 ####[facility] [address] [place] [address] Potassium [Moles/Vol] 3.3 mmol/L Low 3.5-5.[address] [facility] Comment on above: Performed By: #### 2 236561, 20852813, 69561469, 19731849, 0836557, 6987376 ####[facility] [address] [place] [address] Sodium [Moles/Vol] 135 mmol/L Normal 135-[address] [facility] Comment on above: Performed By: #### 2 565325, 35019296, 47080302, 98553975, 1775516, 7087480 ####[facility] [address] [place] [address] CBC w/ Auto Diffon 1 Erythrocyte distribution width (RBC) [Ratio] 13.5 % Normal 10.9-14.[address] [facility] Comment on above: Performed By: #### 2 123117, 76385819, 12406547, 21903863, 0203237, 2624517 ####[address] [address] Hematocrit (Bld) [Volume fraction] 37.1 % Normal 34.0-46.[address] [facility] Comment on above: Performed By: #### 2 356976, 89120726, 38161117, 44145694, 5225429, 6351223 ####[address] [address] Hemoglobin (Bld) [Mass/Vol] 12.5 g/dL Normal 12.0-16.[address] [facility] Comment on above: Performed By: #### 2 333251, 12996384, 15115554, 27734071, 5280963, 1048363 ####[address] [address] MCH (RBC) [Entitic mass] 29.4 pg Normal 27.0-34.[address] [facility] Comment on above: Performed By: #### 2 899507, 31854304, 82709973, 19945239, 1682506, 2959902 ####[address] [address] MCHC (RBC) [Mass/Vol] 33.6 g/dL Normal 31.4-36.[address] [facility] Comment on above: Performed By: #### 2 518589, 16914770, 68534237, 54824645, 7406897, 7696751 ####[address] [address] MCV (RBC) [Entitic vol] 87.4 fL Normal 80.0-100.[address] [facility] Comment on above: Performed By: #### 2 824993, 06502484, 26952472, 06444293, 3466782, 3776465 ####[address] [address] Platelet mean volume (Bld) [Entitic vol] 9.4 fL Normal 6.4-10.[address] [facility] Comment on above: Performed By: #### 2 633440, 49279905, 76276322, 34968194, 0386334, 2739366 ####[facility] [address] [place] [address] Platelets (Bld) [#/Vol] 208.0 E9/L Normal 150.0-500.[address] [facility] Comment on above: Performed By: #### 2 619224, 19388288, 75084496, 90119168, 8136978, 1288161 ####[facility] [address] [place] [address] RBC (Bld) [#/Vol] 4.2 E12/L Low 4.3-5.[address] [facility] Comment on above: Performed By: #### 2 253766, 65135431, 55311532, 02802774, 0334568, 0715723 ####[facility] [address] [place] [address] WBC corrected for nucl RBC Auto (Bld) [#/Vol] 3.8 E9/L Low 4.0-11.[address] [facility] Comment on above: Performed By: #### 2 266365, 76409460, 26613482, 77767041, 8359848, 6811755 ####[facility] [address] [place] [address] Consent for Treatmenton 02-06 Consent for Treatment [id number] .[id number]:[address] [facility] Discharge Instructionson Discharge Instructions [id number]:[address] [facility] ED Clinical Summaryon 2020 ED Clinical Summary [address] [address] ED Clinical Summary Person Information Name: BROOKLYNN KENYON [place] Age: 26 Years : 1995 Sex: Female Language: Jamaican PCP: MICHAEL HELMS MD Marital Status: Phone: [phone] Visit Id: Visit Reason: Shortness of breath; [...] 02/23/2021 15:23:48 02/23/2021 15:23:48 02/23/2021 15:23:48 ADDRESS: [address] [facility] [id number] PHYS DOC NOTES: MEDICAL INFORMATION: Prescriptions Given: [...] Follow up: With: Address: When: MICHAEL HELMS [address] [place] [address] Business (1) In 3 days 02/26/2021 DIAGNOSIS: 1:Vaccine reaction Normal [facility] ED Note-Physicianon 02-24-20 ED Note-Physician Basic Information [...] Information MICHAEL HELMS In 3 days 02/26/[address] Business (1) Additional Instructions: Patient Education Post-Injection Inflammatory Reaction Attestation Patient seen and evaluated by the physician mail handler assistant. Attending physician was present in the emergency department and supervised care. This report was transcribed using voice recognition software. Every effort was made to ensure accuracy, however, inadvertently computerized closing supervisor mistakes may be present. Appropriate healthcare PPE [...] % (02/23/21 (more content not included)... Normal [facility] Comment on above: Result Comment: [...] a physical exam. During the exam, a [place] may be drawn around the injection site. The [place] helps to show whether redness in the area is spreading. How is this treated? Treatment for this condition depends on what caused the reaction and how severe the reaction is. Treatment may include: ? Putting an ice pack over the injection site. ? Taking a nonsteroidal anti-inflammatory drug (NSAID) to lessen swelling and itching. ? Taking antibiotic medicine. ? Taking ynit-qlf-fbaxdvt pain medicine. If the reaction affects a joint, you may also need to rest the joint for a while. Follow these instructions at home: Medicines ? If you were prescribed antibiotic medicine, take or apply it as told by your health care provider. Do not stop taking or applying the antibiotic even if you start to feel better. ? Take atyh-fnq-icshjka and prescription medicines only as told by [...] 12/05/2011 Document Revised: 07/17/2019 Document Reviewed: 03/02/2019 [employer] Shine Patient Education ? 2019 [employer]. Normal [facility] ED Patient Summaryon ED Patient Summary [address] [address] Patient Discharge Instructions Person Information Name: BROOKLYNN KENYON Age: 26 Years Arrival Date: 02/23/2021 12:58:05 Discharge Diagnosis: 1:Vaccine reaction Primary Care Physician: MICHAEL HELMS MD Provider Information Primary Provider: Julee Herrera M.D. Advanced Barrel Raiser Helper:Robert Urena PA-C The exam and treatment you received in the Emergency Department were for an urgent problem and are not intended as complete care. It is important that you follow up with a doctor, nurse practitioner, or physician?s mail handler assistant for ongoing care. If your symptoms become worse or you do not improve as expected and you are unable to reach your usual health care provider, you should return to the Emergency Department. We are available 24 hours a day. BROOKLYNN KENYON has been given the following list of patient education materials, prescriptions and follow-up instructions: Follow-up Instructions: With: Address: When: MICHAEL HELMS [address] [place] [id number] Business (1) In 3 days 02/26/2021 In the event that this physician does not participate in your insurance network, please consult with your insurance company to find a nearby participating provider. Patient Education Materials: Post-Injection Inflammatory Reaction A MESSAGE TO ALL PATIENTS REGARDING OPIOIDS PRESCRIPTION OPIOIDS: WHAT YOU NEED TO KNOW Prescription opioids can be used to help relieve pgcejqfy-vz-wgqmup pain and are often prescribed following a [...] be struggling with addiction, tell your health child care giver and ask for guidance or call [facility]S National Helpline at 8-427-737-BYPE. (more content not included)... Normal [facility] Manual Diffon 02-23-2021 Band form neutrophils/100 WBC (Bld) 6 % Normal 0-[address] [facility] Comment on above: Order Comment: Order Added by Discern Expert. Performed By: #### 2 579292, 25571349, 12843114, 03643328, 3070407, 3391084 ####[facility] [address] [place] [address] Basophils/100 WBC (Bld) 0 % Normal 0-[address] [facility] Comment on above: Order Comment: Order Added by Discern Expert. Performed By: #### 2 200374, 01350573, 22820788, 21911508, 1195999, 4593908 ####[facility] [address] [place] [address] Eosinophils/100 WBC (Bld) 1 % Normal 0-[address] [facility] Comment on above: Order Comment: Order Added by Discern Expert. Performed By: #### 2 336917, 57966945, 92437833, 12331334, 0749308, 9050058 ####[facility] [address] [place] [address] Lymphocytes/100 WBC (Bld) 44 % Normal 14-[address] [facility] Comment on above: Order Comment: Order Added by Discern Expert. Performed By: #### 2 493182, 24125164, 53522601, 32171508, 2752601, 4368061 ####[facility] [address] [place] [address] Monocytes/100 WBC (Bld) 7 % Normal 4-[address] [facility] Comment on above: Order Comment: Order Added by Discern Expert. Performed By: #### 2 653935, 24525506, 60628574, 45812635, 0939168, 5901191 ####[facility] [address] [place] [address] Morphology Mateusz (Bld) [Interp] Normal Normal [facility] Comment on above: Order Comment: Order Added by Discern Expert. Performed By: #### 2 105279, 57231552, 75390413, 67531843, 9319140, 6743189 ####[facility] [address] [place] [address] Segmented neutrophils/100 WBC (Bld) 39 % Normal 36-[address] [facility] Comment on above: Order Comment: Order Added by Discern Expert. Performed By: #### 2 532651, 43653052, 52259125, 93997978, 4010947, 5492747 ####[facility] [address] [place] [address] Variant lymphocytes LM Ql (Bld) 3 % Invalid Interpretation Code [facility] Comment on above: Order Comment: Order Added by Discern Expert. Performed By: #### 2 394272, 30652423, 64388825, 48533434, 7058983, 3586030 ####[facility] [address] [place] [address] Prescriptions/Work Noteson 1 04-25-2020 Prescriptions/Work Notes [id number] .[id number]:[address] [facility] Troponin 0 Hr.on 02-23-2021 Troponin I.cardiac [Mass/Vol] 2.30 pg/mL Low 10.10-27.[address] [facility] Comment on above: Result Comment: The 95% CI (Confidence Interval) PPV (Positive Predictive Value) for myocardial infarction in females is 38 pg/mL, in males 51 pg/mL. The results should be used in conjunction with clinical conditions of myocardial infarction. (Access High Sensitivity Troponin I Instructions For Use, Monet[employer], November 2017) Performed By: #### 2 674830, 37267048, 00487763, 90805012, 6433553, 5194423 ####[facility] [address] [place] [address] XR Chest Single Viewon 02-23 XR Chest [...] V. Transcribed by: KEMAR Technologist: DYAN Normal [facility] eGFRon 02-23-2021 GFR/1.73 sq M.predicted among blacks MDRD (S/P/Bld) [Vol rate/Area] mL/min/{1.73_m2} Normal >=[address] [facility] Comment on above: Order Comment: Order added by Discern Expert. Result Comment: eGFR is race adjusted. AA=. Performed By: #### 2 124941, 18925125, 92248939, 37314595, 8068804, 0515461 ####[facility] [address] [place] [address] GFR/1.73 sq M.predicted among non-blacks MDRD (S/P/Bld) [Vol rate/Area] mL/min/{1.73_m2} Normal >=[address] [facility] Comment on above: Order Comment: Order added by Discern Expert. Result Comment: [employer] jorden kidney disease could be indicated at eGFR's of less than 60 mL/min/1.73m2. Kidney failure is indicated at less than 15 mL/min/1.73m2. Performed By: #### 2 116289, 98464152, 60857922, 05775868, 7647575, 4216680 ####[facility] [address] [place] [address] Ambulatory Clinical Summaryo n 10-14-2020 Ambulatory Clinical Summary {[id number] Normal [facility] Vital Signs Date Time Vital Sign Value Performing Clinician Facility 01-22-2024 15:16-0400 Body mass index (BMI) [Ratio] 39.47 kg/m2 [employer] Work Phone: [facility] 01-22-2024 15:16-0400 Body weight 114.31 kg [employer] Work Phone: [facility] 01-22-2024 15:16-0400 Diastolic blood pressure 72 mm[Hg] [employer] Work Phone: [facility] 01-22-2024 15:16-0400 Systolic blood pressure 124 mm[Hg] [employer] Work Phone: [facility] 06-22-2022 09:21-0400 Body height 167.6 cm ANTELOM Bills MD Work Phone: [facility] 06-22-2022 09:21-0400 Body weight 112.49 kg ANTELMO Bills MD Work Phone: [facility] 08-08-2021 14:31-0400 Body temperature 98.24 [degF] Sourav Stinson [facility] 08-08-2021 14:31-0400 Diastolic blood pressure 97 mm[Hg] Sourav Stinson [facility] 08-08-2021 14:31-0400 Heart rate 94 /min Sourav Stinson [facility] 08-08-2021 14:31-0400 Respiratory rate 18 /min Sourav Stinson [facility] 08-08-2021 14:31-0400 SaO2% (BldA) [Mass fraction] 98 % Sourav Stinson [facility] 08-08-2021 14:31-0400 Systolic blood pressure 137 mm[Hg] Sourav Stinson [facility] Encounters Encounter Date Encounter Type Care Provider Facility Start: 01-22-2024 End: 01-22-2024 ambulatory CELESTE MORRO Not Available Start: 01-22-2024 End: 01-22-2024 flow sheet Celeste Morro DO Work Phone: [facility] Comment on above: Second trimester pre gnancy; 18 weeks gestation of Start: 01-22-2024 End: 01-22-2024 Bamboo flowsheet Celeste Morro DO Work Phone: [facility] Start: 01-22-2024 End: 01-22-2024 Bamboo flowsheet Celeste Morro DO Work Phone: [facility] Start: 12-23-2023 End: 12-23-2023 ambulatory CELESTE MORRO Not Available Start: 11-25-2023 End: 11-25-2023 ambulatory CELESTE MORRO Not Available Start: 09-09-2023 End: 09-09-2023 ambulatory ENIO CIFUENTES Not Available Start: 08-12-2023 End: 08-12-2023 ambulatory JULIO PULIDO Not Available Start: 08-07-2023 End: 08-07-2023 ambulatory CELESTE MORRO Not Available Start: 07-11-2023 End: 07-11-2023 ambulatory MICHAEL HELMS Not Available Start: 06-19-2023 End: 06-19-2023 ambulatory CELESTE HOOKER Not Available Start: 06-13-2023 End: 06-13-2023 ambulatory CELESTE HOOKER Not Available Start: 03-05-2023 End: 03-05-2023 ambulatory CELESTE HOOKER Not Available Start: 08-14-2022 Encounter for genera l adult medical examination without abnormal findings DR MICHAEL HELMS [facility] Start: 08-07-2022 End: 08-08-[address] MICHAEL HELMS Facility:[facility] Start: 08-07-2022 End: 08-08-2022 Encounter for general adult medical examination without abnormal findings DR MICHAEL HELMS Facility:[facility] Start: 06-22-2022 End: 06-22-2022 Patient encounter procedure Maxime Bills MD Work Phone: Plastic Surgery Comment on above: OPENED IN ERROR (Jeannie danielle Dx) Start: 06-14-2022 End: 06-14-2022 ambulatory SUMMER LEON Facility:[facility] Start: 02-02-2022 End: 02-03-[address] MICHAEL HELMS Facility:[facility] Start: 01-31-2022 End: 01-31-[address] CELESTE HOOKER . Facility:[facility] Start: 08-23-2021 End: 08-24-[address] MICHAEL HELMS Facility:[facility] Start: 08-08-2021 End: 08-08-2021 Emergency department patient visit Sourav Stinson [facility] Procedures Date Procedure Procedure Detail Performing Clinician Start: 01-22-2024 Urnls dip stick/tabl et rgnt non-auto w/o micrscp Celeste Morro DO Work Phone: Start: 01-27-2015 [address] p[address] - local Sourav Stinson Lithotripsy Sourav Stinson Plan of Treatment Date Care Activity Detail Author Start: 02-19-2024 End: 02-19-2024 Patient encounter procedure 02/19/2024 3:10 PM EST Routine [facility] [address] [place] [id number] Celeste Hooker, DO [address] [place] [address] [facility] Start: 01-29-2024 End: 01-29-2024 Professional / ancillary services management 01/29/2024 2:30 PM EDT Ancillary Procedure [facility] [address] [place] [id number] [facility] Start: 12-08-2023 Influenza vaccination Influenza Vacc ine (#1) [facility] Start: 04-08-2022 DEPRESSION ASSESSMENT DEPRESSION ASS ESSMENT [facility] Start: 12-07-2021 Influenza vaccination INFLUENZA (#1) [facility] Start: 04-18-2021 COVID-19 VACCINE (2 - Booster for Vinny series) COVID-19 VACCINE (2 - Booster for Vinny series) [facility] Start: 02-03-2017 PAP TESTING PAP TESTING [facility] Start: 02-03-2015 Urine microalbumin profile DTAP,TDAP ,TD (1 - Tdap) [facility] Start: 02-03-2014 HEPATITIS C SCREENING HEPATITIS C SC HAM [facility] Start: 02-03-2014 HIV SCREENING HIV SCREENING [facility] Start: 02-03-2010 PEDS TO ADULT TRANSI TION ANNUAL ASSESSMENT PEDS TO ADULT TRANSITION ANNUAL ASSESSMENT [facility] Start: 2008 PEDS TO ADULT TRANSI TION INITIAL DISCUSSION PEDS TO ADULT TRANSITION INITIAL DISCUSSION [facility] Start: 02-03-2007 HPV VACCINE (1 - 2-d ose series) HPV VACCINE (1 - 2-dose series) [facility] Start: 1996 HEPATITIS B (1 of 3 - 3-dose series) HEPATITIS B (1 of 3 - 3-dose series) [facility] Immunizations Immunization Date Immunization Notes Care Provider Fa cility 02-07-2020 influenza virus vacc ine, unspecified formulation Celeste Hooker DO Work Phone: [facility] Payers Date Payer Category Payer Private Health Insurance [facility] [id number] 2021 Private Health Insurance [id number] 1995 Unknown [id number] 2.16.840.1.180671.3.579.2. 593 1996 Unknown [id number] 2.16.840.1.373070.3.579.2. 593 1996 Unknown [id number] 2.16.840.1.423303.3.579.2. 593 1996 Unknown [id number] 2.16.840.1.009967.3.579.2. 593 1996 Unknown [id number] 2.16.840.1.675172.3.579.2. 593 1996 Unknown [id number] 2.16.840.1.818997.3.579.2. 1259 1996 Unknown [id number] 2.16.840.1.378854.3.579.2. 1259 1996 Unknown [id number] 2.16.840.1.190677.3.579.2. 1259 1996 Unknown [id number] 2.16.840.1.286460.3.579.2. 1259 1996 Unknown [id number] 2.16.840.1.257910.3.579.2. 1259 1996 Unknown [id number] 2.16.840.1.765019.3.579.2. 1259 1996 Unknown [id number] 2.16.840.1.464619.3.579.2. 1259 1996 Unknown [id number] 2.16.840.1.865835.3.579.2. 1259 1995 Unknown [id number] 1996 Unknown [id number] 1958 Private Health Insurance [id number] 1958 Unknown [id number] Social History Date Type Detail Facility Start: 10-11-2018 End: 07-11-2023 Tobacco smoking status Never smoked tobacco (finding) [facility] Start: 07-11-2023 Sex Assigned At Female F [facility] Start: 06-22-2022 End: 07-11-2023 Tobacco use and exposure Smokeless tobacco non-user [facility] Start: 1995 Sex Assigned At Not on file [facility] Start: 12-23-2023 Alcoholic beverage intake Lifetime non-drinker (finding) [facility] Start: 07-11-2023 History of Social function [facility] Start: 09-27-2023 [facility] Start: 1996 Sex assigned at Female [facility] Start: 12-11-2023 Gender identity Identifies as female gender (finding) [facility] Start: 01-22-2024 Alcoholic beverage intake Ex-drinker (finding) [facility] Start: 01-22-2024 Alcohol Comment 1-2 a month socially [facility] History of Present illness Narrative 01-22-2024 Rosi Gilliland LPN - 01/22/2024 2:50 PM EDT Note Date & Type Note Facility 01-22-2024 History of Presen t illness Narrative Reason for Appointment: Patient ID: Brooklynn Kenyon is a 28 y.o. female who presents for Routine Visit Patient presents today for Return OB appointment. MEDICATIONS Current Outpatient Medications Medication Instructions aspirin 81 mg, Oral, Daily magnesium oxide (MAG-OX) 400 mg, Oral, Daily Vit-Fe Fumarate-FA ( 1 PLUS 1 PO) 1 each, Oral, Daily ALLERGIES Allergies Allergen Reactions Cefdinir Rash and Shortness of breath PROBLEMS Active Ambulatory Problems Diagnosis Date Noted Herpes labialis 04/15/2023 Generalized anxiety disorder ([facility]) 07/11/2023 Dyslipidemia ([facility]) 07/11/2023 Metabolic syndrome 07/11/2023 PCOS (polycystic ovarian syndrome) 07/11/2023 Vitamin D deficiency 07/11/2023 Morbid obesity due to excess calories ([facility]) 07/11/2023 Pharyngitis 07/11/2023 Resolved Ambulatory Problems Diagnosis Date Noted No Resolved Ambulatory Problems Past Medical History: Diagnosis Date Back pain Cold sore SONYA (generalized anxiety disorder) ([facility]) History of migraine headaches Kidney stones Migraines ([facility]) Obesity HISTORY PAST MEDICAL HISTORY SOCIAL HISTORY Past Medical History: Diagnosis Date Back pain Cold sore Dyslipidemia ([facility]) SONYA (generalized anxiety disorder) ([facility]) History of migraine headaches Kidney stones Migraines ([facility]) Obesity PCOS (polycystic ovarian syndrome) Vitamin D deficiency Social History Tobacco Use Smoking status: Never Smokeless tobacco: Never Substance Use Topics Alcohol use: Not Currently Comment: 1-2 a month socially Drug use: Never FAMILY HISTORY Family History Problem Relation Name Age of Onset Hypertension Mother Hypertension Father Mental illness Father Hypertension Maternal Grandfather Cancer Maternal Grandfather SURGICAL HISTORY Past Surgical History: Procedure Laterality Date CYST REMOVAL 12/21/2022 on scalp DILATION AND CURETTAGE OF UTERUS 2020 [facility] KIDNEY STONE SURGERY 2016 Kidney Stones REVIEW OF SYSTEMS Review of Systems: Review of Systems Constitutional: Negative. HENT: Negative. Eyes: Negative. Respiratory: Negative. Cardiovascular: Negative. Gastrointestinal: Negative. Genitourinary: Negative. Musculoskeletal: Negative. Skin: Negative. Neurological: Negative. All other systems reviewed and are negative. Hematological: Negative. Endocrine: Negative. Allergic/Immunologic: Negative. OBJECTIVE Objective: Physical Exam Constitutional: Appearance: Normal appearance. She is well-developed. Cardiovascular: Rate and Rhythm: Normal rate and regular rhythm. Pulmonary: Effort: Pulmonary effort is normal. Breath sounds: Normal breath sounds. Abdominal: General: Bowel sounds are normal. There is no distension. Palpations: Abdomen is soft. Tenderness: There is no abdominal tenderness. There is no guarding or rebound. Musculoskeletal: General: No swelling. Normal range of motion. Right lower leg: No edema. Left lower leg: No edema. Neurological: Mental Status: She is alert and oriented to person, place, and time. Skin: General: Skin is warm and dry. Psychiatric: Mood and Affect: Mood normal. Behavior: Behavior normal. Vitals and nursing note reviewed. Exam conducted with a belt splicer present. Vitals: Estimated body mass index is 39.47 kg/m as calculated from the following: Height as of 08/12/23: 5' 7 . Weight as of this encounter: 252 lb. BP: 124/72 Patient's last menstrual period was 06/30/2023. ASSESSMENT & PLAN ICD-10-CM 1. Second trimester Z34.92 2. 18 weeks gestation of Z3A.18 POCT urinalysis dipstick manually resulted Patient presents today for a routine obstetrics appointment. Patient is currently 18w5d with a Estimated Date of Delivery: 06/19/24. Pt doing well with no complaints. Pt has anatomy scan scheduled for next week. Pt states magnesium is working well. Pt to return in 4 weeks for scheduled OB appt. Documented by Rosi Gilliland LPN on behalf of: Celeste Hooker DO documented in this encounter [facility] History of Present illness Narrative 06-22-2022 Raya Brooks RN - 06/22/2022 9:18 AM EDT Note Date & Type Note Facility 06-22-2022 History of Presen t illness Narrative OPENED IN ERROR documented in this encounter [facility] Clinical Note 08-23-2021 Note Date & Type [...] authenticated by: CARMEN SOLORIO Date: 2021-08-23 14:56 [facility] Discharge instructions 08-08-2021 Note Date & Type Note Facility 08-08-2021 Hospital Discharg e instructions Patient Education 08/08/2021 15:44:15 Animal Bite, Adult, [id number] Animal Bite, Adult Animal bite wounds can [...] cannot use soap and water, use hand tie knitter helper. ?Change your bandage as told by your [...] a bad smell. Medicines Take or apply [id number] and prescription medicines only as told by [...] 03/25/2006 Document Revised: 03/20/2018 Document Reviewed: 10/03/2017 [employer] Patient Education [facility] Follow Up Care 08/08/2021 14:30:18 With:MICHAEL HELMS Address: [address] [place] [phone] Business (1) When:08/11/2021 15:01:11 [facility] Evaluation + Plan note Note Date & Type Note Facility Evaluation + Plan note No data available for this section [facility] Evaluation note Note Date & Type Note Facility Evaluation note Diagnosis OPENED IN ERROR- Primary To allow closing an encounter opened in error (used in Smart[employer]) documented in this encounter [facility] Evaluation note Note Date & Type Note Facility Evaluation note Diagnosis Pharyngitis, unspecified etiology- Primary Second trimester state, incidental 18 weeks gestation of documented in this encounter [facility] Summary Purpose Family History No Family History Records FoundNo Family History Records FoundNo Family History Records FoundNo Family History Records FoundNo Family History Records Found Advance Directives No Advanced Directives Records FoundNo Advanced Directives Records FoundNo Advanced Directives Records FoundNo Advanced Directives Records FoundNo Advanced Directives Records Found Additional Source Comments INFORMATION SOURCE (unrecogn ized section and content) DATE CREATED AUTHOR 08/12/2021 Lm Zamorano [facility] DATE CREATED AUTHOR AUTHOR'S ORGANIZ ATION 09/12/2021 [facility] Specialist DATE CREATED AUTHOR AUTHOR'S ORGANIZ ATION 08/15/2022 [facility] DATE CREATED AUTHOR AUTHOR'S ORGANIZ ATION 11/26/2023 [facility] Specialists EPIC DATE CREATED AUTHOR AUTHOR'S ORGANIZ ATION 01/25/2024 [facility] Special[facility] EPIC Source Comments (unrecognize d section and content) In the event this informatio n is protected by the Federal Confidentiality of Alcohol and Drug Abuse Patient Records regulations: The Federal rules restrict any use of the information to criminally investigate or prosecute any alcohol or drug abuse patient.[facility] Reason for Visit (unrecogniz ed section and content) Reason Comments Opened In Error Reason Comments Routine Visit Care Teams (unrecognized sec tion and content) Field Rep Relationship Specialty Start Date End Date Michael Helms [address] [place] [address] PCP - General Family Medicine 06/08/22 Field Rep Relationship Specialty Start Date End Date Michael Helms MD [address] [place] [phone] PCP - General Family Medicine 07/11/23 Field Rep Relationship Specialty Start Date End Date Michael Helms MD [address] [place] [phone] PCP - General Family Medicine 07/11/23 FOR RECORDS PERTAINING TO PATIENTS WHO ARE [...] BE BASED ON THE PRIMARY CLINICAL RECORDS. [facility] provides no warranty or guarantee of the accuracy or completeness of information in this document.
== END 2024-01-29 14:41 | disposition home or self-care (01) ==
LOC: NOMS 14:40
PROVIDERS: PCP Family Medicine; Visit Provider Obstetrics & Gynecology
DX: Z36.89 Encounter for other specified antenatal screening (principal); Z3A.19 19 weeks gestation of pregnancy
CPT/HCPCS: 76805; 76817

== ENCOUNTER 2024-03-03 12:20 | Outpatient (OUT) | payer OTHER, SELFPAY ==
--- OUTSIDE RECORDS SUMMARY | 2024-03-03 12:46 | XMS_ITS | CCD ---
Author Organization [facility] InformFormerly [facility] Care Team Providers Care Weaver [place] Name Role Phone MICHAEL HELMS Primary Care [...] Primary Care Unavailable GLENN PACHECO Consulting Unavailable MORRO ., DR ALONSO Attending Unavailable MORRO ., DR ALONSO Admitting Unavailable MORRO ., DR ALONSO Consulting Unavailable NADKENR, DR [...] Unavailable NADERER, DR MICHAEL Camejo Consulting Unavailable MORROCELESTE Attending Unavailable MORRO, CELESTE Attending Unavailable NADERER, MICHAEL Attending Unavailable MORRO, CELESTE Attending Unavailable MORRO, CELESTE Attending Unavailable JULIO PULIDO Attending Unavailable ENIO CIFUENTES Attending Unavailable MORRO, CELESTE Attending Unavailable Michael Helms MD Primary Care Provider [phone] CELESTE HOOKER Attending Unavailable MORROCELESTE Attending Unavailable MORROCELESTE Attending Unavailable Allergies Allergy Classification Reported Allergen(s) Allergy Type Date of Onset Reaction(s) Facility (6 sources) cefdinir Drug Allergy 3 Rash, Shortness of breath [facility] Medications Current Medications Medication Drug Class(es) Dates Sig (Normalized) Sig (Original) Brookylnn Nina (1 source) Start: 10-12-19 Aimovibrennen SureClrobert SubCutaneous, qMonth, Refills(s) 0 Start Date: 10/11/18 Status: Ordered amoxicillin 875 mg / clavulanate 125 mg oral tablet (1 source) Penicillin-class Antibacterial Start: 08-09-19 End: 08-23-19 take 1 tablet by mouth every twelve hours Augmentin 875 mg oral tablet = 1 tab(s), Oral, q12hr, X 14 day(s), # 28 tab(s), Refills(s) 0, Pharmacy: [facility]/pharmacy #[id number], 168, cm, 08/08/21 14:35:00 EDT, Height/Length Dosing, 108, kg, 08/08/21 14:35:00 EDT, Weight Dosing Start Date: 08/08/21 Stop Date: 08/22/21 Status: Ordered aspirin 81 mg delayed release oral tablet (6 sources) Platelet Aggregation Inhibitor, Nonsteroidal Anti-inflammatory Drug [...] Ordered magnesium oxide 400 mg oral tablet (6 sources) Start: 12-30-19 End: 07-28-19 take 1 tablet by mouth once daily magnesium oxide (Mag-Ox) 400 MG tablet Indications: Nonintractable headache, unspecified chronicity pattern, unspecified headache type Take 1 tablet (400 mg) by mouth Daily 30 tablet 6 12/30/2023 07/27/2024 Active ondansetron 4 mg disintegrating oral tablet (3 sources) Serotonin-3 Receptor Antagonist Start: 02-04-20 End: 03-05-20 take 1 tablet by mouth every six hours as needed for nausea and vomiting and nausea and nausea ondansetron ODT (Zofran-ODT) 4 MG disintegrating tablet Indications: Nausea Take 1 tablet (4 mg) by mouth every 6 (six) hours if needed for nausea or vomiting 30 tablet 2 2024 03/05/2024 Active Vit-Fe Fumarate-FA ( 1 PLUS 1 PO) (6 sources) Vit-Fe Fumarate-FA ( 1 PLUS 1 [...] anxiety and depressed mood] Chronic Anxiety disorders (7 sources) Anxiety; Translations: [Generalized anxiety disorder] Onset: 07-11-2023 10-11-2018 Chronic Calculus of urinary tract (1 source) Kidney stone 10-11-2018 Episodic Disorders of lipid metabolism (6 sources) Dyslipidemia; Translations: [Hyperlipidemia, unspecified] Onset: 07-11-2023 [...] source) Depressive disorder 10-11-2018 Chronic Nutritional deficiencies (7 sources) Vitamin D deficiency, unspecified; Translations: [Vitamin [...] current use of drug therapy; Translations: [Other detention (current) drug therapy] Episodic Other aftercare (1 source) Other ferry terminal agent (current) drug therapy; Translations: [OTH HALFWAY CURRENT DRUG THERAPY] Onset: 06-18-2022 Episodic Other endocrine disorders (7 sources) Polycystic ovary syndrome; Translations: [Polycystic ovarian syndrome] Onset: 07-11-2023 Chronic Other endocrine disorders (1 source) Polycystic ovaries 10-11-2018 Chronic Other injuries and conditions due to external causes (1 source) Other specified injuries of head, initial encounter; Translations: [OTH SPEC INJURIES HEAD INITIAL ENC] Onset: 06-18-2022 Episodic Other nutritional; endocrine; and metabolic disorders (6 sources) Metabolic syndrome X; Translations: [Metabolic syndrome] Onset: 07-11-2023 07-11-2023 Chronic Other nutritional; endocrine; and metabolic disorders (6 sources) Morbid obesity; Translations: [Morbid (severe) obesity due to excess calories] Onset: 07-11-2023 07-11-2023 Chronic Other and delivery including normal (4 sources) Second trimester ; Translations: [Encounter for supervision of normal , unspecified, second trimester] 01-22-2024 Episodic Other screening for suspected conditions (not mental disorders or infectious disease) (6 sources) Encounter for screening for malignant neoplasm of cervix; Translations: [Patient encounter status] Onset: 01-31-2022 Episodic Residual codes; unclassified (2 sources) Gestation period, 18 weeks; Translations: [18 weeks gestation of ] 01-22-2024 Episodic Residual codes; unclassified (2 sources) Gestation period, 22 weeks; Translations: [22 weeks gestation of ] 02-19-2024 Episodic Unclassified (1 source) OPENED IN ERROR Unclassified (3 sources) OB Reminders Onset: 02-16-2024 02-16-2024 Past or Other Problems Problem Classification Problem Date Documented Date Episodic/Chronic Immunizations and screening for infectious disease (1 source) Encounter for screening for human papillomavirus (HPV); Translations: [ENC SCREENING HUMAN PAPILLOMAVIRUS] Onset: 2022 Episodic Other connective tissue disease (4 sources) Pain in right finger(s); Translations: [PAIN IN RIGHT FINGERS] Onset: 08-23-2021 Episodic Other skin disorders (1 source) Hyperkeratosis Onset: 05-31-2014 10-11-2018 Episodic Other skin disorders (1 source) Trichilemmal cyst Onset: 12-31-2014 10-11-2018 Episodic Other upper respiratory infections (6 sources) Pharyngitis; Translations: [Acute pharyngitis, unspecified] Onset: 07-11-2023 07-11-2023 Episodic Viral infection (6 sources) Herpes labialis; Translations: [Herpesviral vesicular dermatitis] Onset: 04-15-2023 04-15-2023 Episodic Results Test Name Value Interpretation Reference Range Facility Urinalysis macro (dipstick) panel (U)on 02-19-2024 Bilirubin, UA Negative Negative - 4(70) +++ mg/dL [facility] Blood, UA Negative Negative - 50 Tres/mcL [facility] Clarity, UA Clear [facility] Color, UA Yellow [facility] Glucose, UA Negative Negative - 2000(110) ++++ mg/dL [facility] Interpretation and review of laboratory results Normal [facility] Ketones, UA Negative Negative - 160(16) ++++ mg/dL [facility] Leukocytes, UA Negative Negative - 500+++ Abigail/mcL [facility] Nitrite, UA Negative Negative - Positive [facility] pH, UA 5.5 5 - 9 [facility] Protein, UA Negative Negative - 1999(20) ++++ mg/dL [facility] Spec Grav, UA 1.01 1 - 1.03 [facility] Urobilinogen, UA 0.2 0.2 - 12 mg/dL [facility] Urinalysis macro (dipstick) panel (U)on 01-22-2024 Bilirubin, UA Negative Negative - 4(70) +++ mg/dL [facility] Blood, UA Negative Negative - 50 Tres/mcL [facility] Clarity, UA Clear [facility] Color, UA Yellow [facility] Glucose, UA Negative Negative - 1999(110) ++++ mg/dL [facility] Interpretation and review of laboratory results Abnormal [facility] Ketones, UA Positive Negative - 160(16) ++++ mg/dL [facility] Comment on above: 15 Leukocytes, UA Negative Negative - 500+++ Abigail/mcL [facility] Nitrite, UA Negative Negative - Positive [facility] pH, UA 6 5 - 9 [facility] Protein, UA Negative Negative - 1999(20) ++++ mg/dL [facility] Spec Grav, UA 1.03 1 - 1.03 [facility] Urobilinogen, UA 0.2 0.2 - 12 mg/dL [facility] CBC AUTO DIFFon 08-07-2022 BASO # 0.1 103/ul Normal 0.0-0.1 [facility] Comment on above: Performed By: #### C BC ####[facility] [address] [address]Dr. Rasta Gatica Basophils/100 WBC (Bld) 0.4 % Normal 0.2-2.0 [facility] Comment on above: Performed By: #### C BC ####[facility] [address] [address]Dr. Rasta Gatica EO # 0.2 103/ul Normal 0.0-0.7 [facility] Comment on above: Performed By: #### C BC ####[facility] [address] [address]Dr. Rasta Gatica Eosinophils/100 WBC (Bld) 1.3 % Normal 0.9-7.0 [facility] Comment on above: Performed By: #### C BC ####[facility] [address] [place], [place] [address]Dr. Rasta Gatica Erythrocyte distribution width (RBC) [Ratio] 12.7 % Normal 11.0-15.0 [facility] Comment on above: Performed By: #### C BC ####[facility] [address] [place], [place] [address]Dr. Rasta Gatica Hematocrit (Bld) [Volume fraction] 40.3 % Normal 36.0-48.0 [facility] Comment on above: Performed By: #### C BC ####[facility] [address] [place], [place] [address]Dr. Rasta Gatica Hemoglobin (Bld) [Mass/Vol] 13.1 g/dL Normal 12.0-16.0 [facility] Comment on above: Performed By: #### C BC ####[facility] [address] [place], [place] [address]Dr. Rasta Gatica IG # 0.03 10e3/ul Normal 0.00-0.03 [facility] Comment on above: Performed By: #### C BC ####[facility] [address] [place], [place] [address]Dr. Rasta Gatica IG % 0.3 % Normal 0.0-0.5 [facility] Comment on above: Performed By: #### C BC ####[facility] [address] [place], [place] [address]Dr. Rasta Gatica LYMPH # 2.9 103/ul Normal 1.2-3.8 [facility] Comment on above: Performed By: #### C BC ####[facility] [address] [place], [place] [address]Dr. Rasta Gatica Lymphocytes/100 WBC (Bld) 25.5 % Normal 20.5-60.0 [facility] Comment on above: Performed By: #### C BC ####[facility] [address] [place] [id number]. Rasta Gatica MANUAL DIFF REQ NO Normal [facility] Comment on above: Performed By: #### C BC ####[facility] [address] [place] [id number]. Rasta Gatica MCH (RBC) [Entitic mass] 29.1 pg Normal 26.7-34.0 [facility] Comment on above: Performed By: #### C BC ####[facility] [address] [place] [id number]. Rasta Gatica MCHC (RBC) [Mass/Vol] 32.5 g/dL Normal 29.9-35.2 [facility] Comment on above: Performed By: #### C BC ####[facility] [address] [place], [place] [address]Dr. Rasta Gatica MCV (RBC) [Entitic vol] 89.6 fL Normal 81.0-99.0 [facility] Comment on above: Performed By: #### C BC ####[facility] [address] [place], [place] [id number]. Rasta Gatica MONO # 0.8 103/ul Normal 0.3-0.8 [facility] Comment on above: Performed By: #### C BC ####[facility] [address] [place], [place] [address]Dr. Rasta Gatica Monocytes/100 WBC (Bld) 7.2 % Normal 1.7-12.0 [facility] Comment on above: Performed By: #### C BC ####[facility] [address] [place], [place] [address]Dr. Rasta Gatica NEUT # 7.3 103/ul Critically high 1.4-6.5 [facility] Comment on above: Performed By: #### C BC ####[facility] [address] [place], [place] [id number]. Rasta Gatica Neutrophils/100 WBC (Bld) 65.3 % Normal 43.0-75.0 [facility] Comment on above: Performed By: #### C BC ####[facility] [address] [place] [id number]. Rasta Gatica Platelet mean volume (Bld) [Entitic vol] 10.7 fL Normal 9.5-13.5 [facility] Comment on above: Performed By: #### C BC ####[facility] [address] [place] [id number]. Rasta Gatica PLT 279 103/ul Normal 150-450 [facility] Comment on above: Performed By: #### C BC ####[facility] [address] [place] [id number]. Rasta Gatica RBC 4.50 106/ul Normal 4.20-5.40 [facility] Comment on above: Performed By: #### C BC ####[facility] [address] [address]Dr. Rasta Gatica WBC 11.2 103/ul Critically high 4.0-11.0 [facility] Comment on above: Performed By: #### C BC ####[facility] [address] [place] [id number] Gatica GLYCOHEMOGLOBIN A1Con 2022 ADA RECOMMENDATION SEE BELOW Normal [facility] Comment on above: Result Comment: ADA RECOMMENDED LIMIT 4.0 - 6.0 ADA THERAPEUTIC TARGET < 7.0 ACTION SUGGESTED > 7.0 Performed By: #### A 1C #### [facility] [address] [address] [address] Rasta Gatica Glucose [Mass/Vol] 103 mg/dL Normal [facility] Comment on above: Performed By: #### A 1C #### [facility] [address] [address] [address] Rasta Gatica HbA1c (Bld) [Mass fraction] 5.2 % Normal 4.5-6.2 [facility] Comment on above: Performed By: #### A 1C #### [facility] [address] [address] [address] Rasta Gatica LIPID PROFILEon 08-07-2022 CHOL-HDL RATIO NORM SEE BELOW Normal [facility] Comment on above: Result Comment: 3.3 - 4.4 LOW RISK 4.4 - 7.1 AVERAGE RISK 7.1 - 11.0 MODERATE RISK >11.0 HIGH RISK Performed By: #### L IPID, BMP, TSH, LIVER #### [facility] [address] [address] [address] Rasta Gatica Cholesterol [Mass/Vol] 234 mg/dL Critically high <=200 [facility] Comment on above: Performed By: #### L IPID, BMP, TSH, LIVER #### [facility] [address] [address] [address] Rasta Gatica Cholesterol in HDL [Mass/Vol] 67 mg/dL Critically high 40-60 [facility] Comment on above: Performed By: #### L IPID, BMP, TSH, LIVER #### [facility] [address] [place] [address] Dr. Rasta Gatica Cholesterol in LDL [Mass/Vol] 151.8 mg/dL Normal [facility] Comment on above: Performed By: #### L IPID, BMP, TSH, LIVER #### [facility] [address] [address] [address] Rasta Gatica Cholesterol.total/C holesterol in HDL [Mass ratio] 3.5 {ratio} Normal [facility] Comment on above: Performed By: #### L IPID, BMP, TSH, LIVER #### [facility] [address] [address] [address] Rasta Gatica HDL NORMAL > or = 60 mg/dl - LO W CARDIOVASCULAR RISK <40 mg/dl - HIGH CARDIOVASCULAR RISK Normal [facility] Comment on above: Performed By: #### L IPID, BMP, TSH, LIVER #### [facility] [address] [address] [address] Rasta Gatica LDL CALC NORMAL SEE BELOW Normal [facility] Comment on above: Result Comment: <100 mg/dl OPTIMAL 100 - 129 mg/dl NEAR OR ABOVE OPTIMAL 130 - 159 mg/dl BORDERLINE HIGH 160 - 189 mg/dl HIGH >190 mg/dl VERY HIGH Performed By: #### L IPID, BMP, TSH, LIVER #### [facility] [address] [address] [address] Rasta Gatica Triglyceride [Mass/Vol] 76 mg/dL Normal <=150 [facility] Comment on above: Performed By: #### L IPID, BMP, TSH, LIVER #### [facility] [address] [address] [address] Rasta Gatica VLDL CALC 15.2 mg/dL Normal [facility] Comment on above: Performed By: #### L IPID, BMP, TSH, LIVER #### [facility] [address] [address] [address] Rasta Gatica LIVER PROFILEon 08-07-2022 Albumin [Mass/Vol] 3.8 g/dL Normal 3.4-5.0 [facility] Comment on above: Performed By: #### L IPID, BMP, TSH, LIVER #### [facility] [address] [address] [address] Rasta Gatica Albumin/Globulin [Mass ratio] 1.0 {ratio} Normal [facility] Comment on above: Performed By: #### L IPID, BMP, TSH, LIVER #### [facility] [address] [address] [address] Rasta Gatica ALP [Catalytic activity/Vol] 98 U/L Normal 46-116 [facility] Comment on above: Performed By: #### L IPID, BMP, TSH, LIVER #### [facility] [address] [address] [address] Rasta Gatica ALT [Catalytic activity/Vol] 24 U/L Normal 14-59 [facility] Comment on above: Performed By: #### L IPID, BMP, TSH, LIVER #### [facility] [address] [address] [address] Rasta Gatica AST [Catalytic activity/Vol] 19 U/L Normal 15-37 [facility] Comment on above: Performed By: #### L IPID, BMP, TSH, LIVER #### [facility] [address] [address] [address] Rasta Gatica BILI, CONJUGATED 0.1 mg/dL Normal 0.0-0.2 [facility] Comment on above: Performed By: #### L IPID, BMP, TSH, LIVER #### [facility] [address] [place] [address] Dr. Rasta Gatica Bilirubin [Mass/Vol] 0.4 mg/dL Normal 0.2-1.0 [facility] Comment on above: Performed By: #### L IPID, BMP, TSH, LIVER #### [facility] [address] [place] [address] Dr. Rasta Gatica Globulin (S) [Mass/Vol] 3.8 g/dL Normal [facility] Comment on above: Performed By: #### L IPID, BMP, TSH, LIVER #### [facility] [address] [place] [address] Dr. Rasta Gatica Protein [Mass/Vol] 7.6 g/dL Normal 6.4-8.2 [facility] Comment on above: Performed By: #### L IPID, BMP, TSH, LIVER #### [facility] [address] [place] [address] Dr. Rasta Gatica PROF CHEM 8 (BAS METB)on Anion gap [Moles/Vol] 9.6 mmol/L Normal [facility] Comment on above: Performed By: #### L IPID, BMP, TSH, LIVER #### [facility] [address] [place] [address] Dr. Rasta Gatica Calcium [Mass/Vol] 9.8 mg/dL Normal 8.5-10.1 [facility] Comment on above: Performed By: #### L IPID, BMP, TSH, LIVER #### [facility] [address] [place] [address] Dr. Rasta Gatica Chloride [Moles/Vol] 106 mmol/L Normal 98-107 [facility] Comment on above: Performed By: #### L IPID, BMP, TSH, LIVER #### [facility] [address] [place] [address] Dr. Rasta Gatica CO2 [Moles/Vol] 27.0 mmol/L Normal 21.0-32.0 [facility] Comment on above: Performed By: #### L IPID, BMP, TSH, LIVER #### [facility] [address] [place] [address] Dr. Rasta Gatica Creatinine [Mass/Vol] 0.66 mg/dL Normal 0.55-1.02 [facility] Comment on above: Performed By: #### L IPID, BMP, TSH, LIVER #### [facility] [address] [place] [address] Dr. Rasta Gatica EGFR-AF GREEK >60 Normal >=60 [facility] Comment on above: Performed By: #### L IPID, BMP, TSH, LIVER #### [facility] [address] [place] [address] Dr. Rasta Gatica EGFR-NON AF GREEK >60 Normal >=60 [facility] Comment on above: Performed By: #### L IPID, BMP, TSH, LIVER #### [facility] [address] [place] [address] Dr. Rasta Gatica Glucose [Mass/Vol] 88 mg/dL Normal 74-106 [facility] Comment on above: Performed By: #### L IPID, BMP, TSH, LIVER #### [facility] [address] [place] [address] Dr. Rasta Gatica Potassium [Moles/Vol] 4.6 mmol/L Normal 3.5-5.1 [facility] Comment on above: Performed By: #### L IPID, BMP, TSH, LIVER #### [facility] [address] [place] [address] Dr. Rasta Gatica Sodium [Moles/Vol] 138 mmol/L Normal 136-145 [facility] Comment on above: Performed By: #### L IPID, BMP, TSH, LIVER #### [facility] [address] [place] [address] Dr. Rasta Gatica Urea nitrogen [Mass/Vol] 10.0 mg/dL Normal 7.0-18.0 [facility] Comment on above: Performed By: #### L IPID, BMP, TSH, LIVER #### [facility] [address] [address] [address] Rasta Gatica Urea nitrogen/Creatinine [Mass ratio] 15.2 mg/mg Normal [facility] Comment on above: Performed By: #### L IPID, BMP, TSH, LIVER #### [facility] [address] [address] [address] Rasta Gatica TSHon 08-07-2022 TSH 1.521 uIU/mL Normal 0.358-3.740 [facility] Comment on above: Performed By: #### L IPID, BMP, TSH, LIVER #### [facility] [id number] R[address] Gatica [address] HEAD WO CONon [...] authenticated by: GLENN PACHECO Date: 2022-06-14 20:18 [facility] PAP ACOG PANEL 2: 22 to 30on 02-08-2022 . . Normal [facility] Comment on above: Performed By: #### [id number] #### [facility] [address] [place] [address] Dr. Rasta Gatica Age Gdln ACOG Testing 21-29 Normal [facility] Comment on above: Performed By: #### [id number] #### [facility] [address] [place] [address] Dr. Rasta Gatica DIAGNOSIS: Comment [facility] Comment on above: Result Comment: NEGA TIVE FOR INTRAEPITHELIAL LESION OR MALIGNANCY. Performed By: #### [id number] #### [facility] [address] [place] [address] Dr. Rasta Gatica Methodology: Comment Normal [facility] Comment on above: Result Comment: This liquid based ThinPrep(R) pap test was screened with the use of an image guided system. Performed By: #### [id number] #### [facility] [address] [place] [address] Dr. Rasta Gatica Note: Comment Normal [facility] Comment on above: Result Comment: The Pap smear is a screening test designed to aid in the detection of premalignant and malignant conditions of the uterine cervix. It is not a diagnostic procedure and should not be used as the sole means of detecting cervical cancer. Both false-positive and false-negative reports do occur. . Performed By: #### [id number] #### [facility] [address] [place] [address] Dr. Rasta Gatica Performed by: Comment Normal [facility] Comment on above: Result Comment: Darline Terry, Metal Worker (ASCP) Performed By: #### [id number] #### [facility] [address] [place] [address] Dr. Rasta Gatica Reflex Criteria: Comment Normal [facility] Comment on above: Result Comment: The HPV DNA reflex criteria were not met with this specimen result therefore, no HPV testing was performed. . Performed By: #### [id number] #### [facility] [address] [place] [address] Dr. Rasta Gatica Specimen adequacy: Comment Normal [facility] Comment on above: Result Comment: Sati sfactory for evaluation. Endocervical and/or squamous metaplastic cells (endocervical component) are present. Performed By: #### [id number] #### [facility] [address] [place] [address] Dr. Rasta Gatica CBC AUTO DIFFon 02-02-2022 BASO # 0.0 103/ul Normal 0.0-0.1 [facility] Comment on above: Performed By: #### C BC ####[facility] [address] [address]Dr. Rasta Gatica Basophils/100 WBC (Bld) 0.4 % Normal 0.2-2.0 [facility] Comment on above: Performed By: #### C BC ####[facility] [address] [place] [id number]. Rasta Gatica EO # 0.1 103/ul Normal 0.0-0.7 [facility] Comment on above: Performed By: #### C BC ####[facility] [address] [place] [address]Dr. Rasta Gatica Eosinophils/100 WBC (Bld) 1.3 % Normal 0.9-7.0 [facility] Comment on above: Performed By: #### C BC ####[facility] [address] [place], [place] [address]Dr. Rasta Gatica Erythrocyte distribution width (RBC) [Ratio] 13.2 % Normal 11.0-15.0 [facility] Comment on above: Performed By: #### C BC ####[facility] [address] [place], [place] [address]Dr. Rasta Gatica Hematocrit (Bld) [Volume fraction] 40.8 % Normal 36.0-48.0 [facility] Comment on above: Performed By: #### C BC ####[facility] Fujsbtpymc[address] [place], [place] [address]Dr. Rasta Gatica Hemoglobin (Bld) [Mass/Vol] 13.2 g/dL Normal 12.0-16.0 [facility] Comment on above: Performed By: #### C BC ####[facility] Itxariwmab[address] [place], [place] [address]Dr. Rasta Gatica IG # 0.03 10e3/ul Normal 0.00-0.03 [facility] Comment on above: Performed By: #### C BC ####[facility] Phlhdrnsxr[address] [place], [place] [address]Dr. Rasta Gatica IG % 0.3 % Normal 0.0-0.5 [facility] Comment on above: Performed By: #### C BC ####[facility] Qujfvecacv[address] [place], [place] [address]Dr. Karrieroopa Gatica LYMPH # 2.8 103/ul Normal 1.2-3.8 [facility] Comment on above: Performed By: #### C BC ####[facility] [address]uft[address] [place] [id number]. Karrieroopa Gatica Lymphocytes/100 WBC (Bld) 29.1 % Normal 20.5-60.0 [facility] Comment on above: Performed By: #### C BC ####[facility] T[address]iblvdx4[address] [place] [id number]. Rasta Gatica MANUAL DIFF REQ NO Normal [facility] Comment on above: Performed By: #### C BC ####[facility] Tamuupuctz1086 [place] [id number]. Rasta Gatica MCH (RBC) [Entitic mass] 29.1 pg Normal 26.7-34.0 [facility] Comment on above: Performed By: #### C BC ####[facility] Ezrrkeeezn[address] [place], [place] [address]Dr. Rasta Gatica MCHC (RBC) [Mass/Vol] 32.4 g/dL Normal 29.9-35.2 [facility] Comment on above: Performed By: #### C BC ####[facility] Yknwbpcizj9[address] [place] [id number]. Rasta Gatica MCV (RBC) [Entitic vol] 90.1 fL Normal 81.0-99.0 [facility] Comment on above: Performed By: #### C BC ####[facility] [address] [place], [place] [id number]. Rasta Gatica MONO # 0.6 103/ul Normal 0.3-0.8 [facility] Comment on above: Performed By: #### C BC ####[facility] Uiyrzcgvdl4842 [place] [id number]. Rasta Gatica Monocytes/100 WBC (Bld) 6.6 % Normal 1.7-12.0 [facility] Comment on above: Performed By: #### C BC ####[facility] Op[address]sp[address] [place], [place] [id number]. Rasta Gatica NEUT # 6.0 103/ul Normal 1.4-6.5 [facility] Comment on above: Performed By: #### C BC ####[facility] Ykmkbqxwyk6015 [place] [id number]. Rasta aGtica Neutrophils/100 WBC (Bld) 62.3 % Normal 43.0-75.0 [facility] Comment on above: Performed By: #### C BC ####[facility] Tsblagwobw[address]93 [place] [id number]. Rasta Gatica Platelet mean volume (Bld) [Entitic vol] 11.4 fL Normal 9.5-13.5 [facility] Comment on above: Performed By: #### C BC ####[facility] Eqnbgexnum0480 [place] [address]Dr. Rasta Gatica PLT 264 103/ul Normal 150-450 [facility] Comment on above: Performed By: #### C BC ####[facility] [address]zqmtokfop[address] [place] [address]Dr. Rasta Gatica RBC 4.53 106/ul Normal 4.20-5.40 [facility] Comment on above: Performed By: #### C BC ####[facility] Uheqdxnzqx2926 [place] [id number]. Rasta Gatica WBC 9.7 103/ul Normal 4.0-11.0 [facility] Comment on above: Performed By: #### C BC ####[facility] Ooqskzwioy7250 [place] [id number]. Rasta Gatica GLYCOHEMOGLOBIN A1Con 2021 ADA RECOMMENDATION SEE BELOW Normal [facility] Comment on above: Result Comment: ADA RECOMMENDED LIMIT 4.0 - 6.0 ADA THERAPEUTIC TARGET < 7.0 ACTION SUGGESTED > 7.0 Performed By: #### A 1C #### [facility] [address] [place] [address] [address] Rasta Gatica Glucose [Mass/Vol] 120 mg/dL Normal [facility] Comment on above: Performed By: #### A 1C #### [facility] [address] [place] [address] [address] Rasta Gatica HbA1c (Bld) [Mass fraction] 5.8 % Normal 4.5-6.2 [facility] Comment on above: Performed By: #### A 1C #### [facility] [address] [place], [place] [address] Dr. Rasta Gatica LIPID PROFILEon 02-02-2022 CHOL-HDL RATIO NORM SEE BELOW Normal [facility] Comment on above: Result Comment: 3.3 - 4.4 LOW RISK 4.4 - 7.1 AVERAGE RISK 7.1 - 11.0 MODERATE RISK >11.0 HIGH RISK Performed By: #### L IVER, TSH, BMP, LIPID ####[facility] [address]xy[address] [place], [place] [address]Ur. Rasta Gatica Cholesterol [Mass/Vol] 210 mg/dL Critically high <=200 [facility] Comment on above: Performed By: #### L IVER, TSH, BMP, LIPID ####[facility] Zxqahxobqf6708 [place] [id number]. Rasta Gatica Cholesterol in HDL [Mass/Vol] 61 mg/dL Critically high 40-60 [facility] Comment on above: Performed By: #### L IVER, TSH, BMP, LIPID ####[facility] Lyfhejjtyz8521 [place] [id number] Gatica Cholesterol in LDL [Mass/Vol] 114.4 mg/dL Normal [facility] Comment on above: Performed By: #### L IVER, TSH, BMP, LIPID ####[facility] Qptfqyywvr1240 [place] [id number]. Rasta Gatica Cholesterol.total/C holesterol in HDL [Mass ratio] 3.4 {ratio} Normal [facility] Comment on above: Performed By: #### L IVER, TSH, BMP, LIPID ####[facility] Twywlqjkvv36[address] [place] [id number]. Rasta Gatica HDL NORMAL > or = 60 mg/dl - LO W CARDIOVASCULAR RISK <40 mg/dl - HIGH CARDIOVASCULAR RISK Normal [facility] Comment on above: Performed By: #### L IVER, TSH, BMP, LIPID ####[facility] Huqddlrtul5637 [place] [id number]. Rasta Gatica LDL CALC NORMAL SEE BELOW Normal [facility] Comment on above: Result Comment: <100 mg/dl OPTIMAL 100 - 129 mg/dl NEAR OR ABOVE OPTIMAL 130 - 159 mg/dl BORDERLINE HIGH 160 - 189 mg/dl HIGH >190 mg/dl VERY HIGH Performed By: #### L IVER, TSH, BMP, LIPID ####[facility] [address]flor[address] [place] [address]Dr. Rasta Gatica Triglyceride [Mass/Vol] 173 mg/dL Critically high <=150 [facility] Comment on above: Performed By: #### L IVER, TSH, BMP, LIPID ####[facility] Uomgxbhqyd6236 [place] [address]Dr. Rasta Gatica VLDL CALC 34.6 mg/dL Normal [facility] Comment on above: Performed By: #### L IVER, TSH, BMP, LIPID ####[facility] Zqqasvgnga1846 [place] [address]Dr. Rasta Gatica LIVER PROFILEon 02-02-2022 Albumin [Mass/Vol] 3.5 g/dL Normal 3.4-5.0 [facility] Comment on above: Performed By: #### L IVER, TSH, BMP, LIPID ####[facility] [address]gg[address]ct[address] [place], [place] [address]Dr. Rasta Gatica Albumin/Globulin [Mass ratio] 1.1 {ratio} Normal [facility] Comment on above: Performed By: #### L IVER, TSH, BMP, LIPID ####[facility] Qurrfmaugf2638 [place] [address]Dr. Rasta Gatica ALP [Catalytic activity/Vol] 71 U/L Normal 46-116 [facility] Comment on above: Performed By: #### L IVER, TSH, BMP, LIPID ####[facility] Fgmowuedbf44[address] [place] [address]Dr. Rasta Gatica ALT [Catalytic activity/Vol] 15 U/L Normal 14-59 [facility] Comment on above: Performed By: #### L IVER, TSH, BMP, LIPID ####[facility] Acvxwhqrrv7[address] [place] [address]Dr. Rasta Gatica AST [Catalytic activity/Vol] 8 U/L Critically low 15-37 [facility] Comment on above: Performed By: #### L IVER, TSH, BMP, LIPID ####[facility] Kxotjjwbhc038[address] [place] [address]Dr. Rasta Gatica BILI, CONJUGATED <0.1 Normal 0.0-0.2 [facility] Comment on above: Performed By: #### L IVER, TSH, BMP, LIPID ####[facility] Auxoiodgmw[address] [place] [address]Dr. Rasta Gatica Bilirubin [Mass/Vol] 0.1 mg/dL Critically low 0.2-1.0 [facility] Comment on above: Performed By: #### L IVER, TSH, BMP, LIPID ####[facility] Iprak[address]qmd[address] [place], [place] [address]Dr. Rasta Gatica Globulin (S) [Mass/Vol] 3.3 g/dL Normal [facility] Comment on above: Performed By: #### L IVER, TSH, BMP, LIPID ####[facility] Axslitlagb[address] [place], [place] [address]Dr. Rasta Gatica Protein [Mass/Vol] 6.8 g/dL Normal 6.4-8.2 [facility] Comment on above: Performed By: #### L IVER, TSH, BMP, LIPID ####[facility] Fydhrrlinc[address] [place], [place] [address]Dr. Rasta Gatica PROF CHEM 8 (BAS METB)on Anion gap [Moles/Vol] 10.6 mmol/L Normal [facility] Comment on above: Performed By: #### L IVER, TSH, BMP, LIPID ####[facility] Xywcjxzful9[address] [place] [address]Dr. Rasta Gatica Calcium [Mass/Vol] 9.2 mg/dL Normal 8.5-10.1 [facility] Comment on above: Performed By: #### L IVER, TSH, BMP, LIPID ####[facility] Ycfyclzjrl[address] [place], [place] [address]Dr. Rasta Gatica Chloride [Moles/Vol] 106 mmol/L Normal 98-107 [facility] Comment on above: Performed By: #### L IVER, TSH, BMP, LIPID ####[facility] Brxeeboete[address] [place] [address]Dr. Rasta Gatica CO2 [Moles/Vol] 29.3 mmol/L Normal 21.0-32.0 [facility] Comment on above: Performed By: #### L IVER, TSH, BMP, LIPID ####[facility] Ffcrswmryf59[address] [place] [address]Dr. Rasta Gatica Creatinine [Mass/Vol] 0.63 mg/dL Normal 0.55-1.02 [facility] Comment on above: Performed By: #### L IVER, TSH, BMP, LIPID ####[facility] Ijjlqyiamj6307 [place] [address]Dr. Rasta Gatica EGFR-AF GREEK >60 Normal >=60 [facility] Comment on above: Performed By: #### L IVER, TSH, BMP, LIPID ####[facility] Bcqupigsvd6481 [place] [address]Dr. Rasta Gatica EGFR-NON AF GREEK >60 Normal >=60 [facility] Comment on above: Performed By: #### L IVER, TSH, BMP, LIPID ####[facility] Aeoluapjte4905 [place] [address]Dr. Rasta Gatica Glucose [Mass/Vol] 82 mg/dL Normal 74-106 [facility] Comment on above: Performed By: #### L IVER, TSH, BMP, LIPID ####[facility] Zzzeqfxeik101[address] [place] [address]Dr. Rasta Gatica Potassium [Moles/Vol] 3.9 mmol/L Normal 3.5-5.1 [facility] Comment on above: Performed By: #### L IVER, TSH, BMP, LIPID ####[facility] Jivtiwnxdq3398 [place] [address]Dr. Rasta Gatica Sodium [Moles/Vol] 142 mmol/L Normal 136-145 [facility] Comment on above: Performed By: #### L IVER, TSH, BMP, LIPID ####[facility] Ggfbuthxzi8[address] [place], [place] [address]Oc. Rasta Gatica Urea nitrogen [Mass/Vol] 11.0 mg/dL Normal 7.0-18.0 [facility] Comment on above: Performed By: #### L IVER, TSH, BMP, LIPID ####[facility] Nsdfwfgxfo6792 [place] [id number]. Rasta Gatica Urea nitrogen/Creatinine [Mass ratio] 17.5 mg/mg Normal [facility] Comment on above: Performed By: #### L IVER, TSH, BMP, LIPID ####[facility] Rixjweqyxp1326 [place] [id number]. Rasta Gatica TSHon 02-02-2022 TSH 1.214 uIU/mL Normal 0.358-3.740 [facility] Comment on above: Performed By: #### L IVER, TSH, BMP, LIPID ####[facility] Soylxnjphz4[address] [place] [id number]. Rasta Gatica VITAMIN D 25 OHon 02-02-2022 VIT D 25-OH 28.2 ng/mL Normal [facility] Comment on above: Performed By: #### V ITAD #### [facility] [address] [address] [address] Rasta Gatica VIT D RANGES SEE BELOW Normal [facility] Comment on above: Result Comment: <20 ng/mL Vit D deficient 20 - <30 ng/mL Vit D insufficient 30 - 100 ng/mL Vit D sufficient >100 ng/mL Potential Toxicity Performed By: #### V ITAD #### [facility] [address] [address] [address] Rasta Gatica MRI Hand w/o Righton [...] by Nic Duncan on 09/12/2021 1107 Normal [facility] Supervisor Tumblers ED Note-Physicianon 08-12-19 ED Note-Physician Basic Information Time Seen: Isi [...] day(s), # 28 tab(s), Refills(s) 0, Pharmacy: [facility]/pharmacy #[id number], 168, cm, 08/08/21 [...] or concerns. Medicat (more content not included)... [facility] Comment on above: Result Comment: Elec tronically Signed By: Isi Stoll PA-C\.br\Date and Time Signed: 08/08/21 18:06 EDT\.br\Electronically Co-Signed By: Sourav Stinson DO\.br\Date and Time Co-Signed: 08/11/21 07:27 EDT Animal Bite Investigationon 08-08-2021 Animal Bite Investigation [id number]# 1.00CD:127 [facility] Coding Summary.on 08-08-2021 Coding Summary. CD:[id number] G h0bWw+PGhlYWQ+AP9LVIO kT96knWQsnX3ID8lJOB1I LBWSNPAFOC6BQL1qeSY6Y VxhO7FgmuHa QymclIFbFC05UHo8CWN2k UmuWMgwrU2epIHjQ1e7Hp JtSP77nD68UDelNXHpBtV 3LjZpbjsgbWFy B8aiQpBltRZzLfg+PHRhY mxlIHdpZHRoPScxMDAlJy PaeQanDE0jZr4bOSOlBLS vbGxhcHNlOiBj h3vlNYRlHVxvHD6gkHpkE 1IizHF6KZJix1o2Ev34iM I+MYRePKJ4nJqlQKgoe05 9GeJgt0ytLWM5 eKPbUIpwMII3K43hp5I4M WAiJJHnAIY8iZI9dX7bxS wtwrohI6JdlBVaMaF2PLW 2aHNrkB4eaKye tcqzrR4yCxb+B11RLI2ZI USFIS3QMfu6N5WnHfsctD I+GI40FKDhNH79rGFbdYV sb0bduLp3JcUu QTPuWCV0fCmoSLmqp7LtO GPgZ23lvSFgb6H5WGVjcD pbbLEfGeRvbJU2kS7mXDz crlrlh0hjdnzq Izcpc0qhqi06hC83F76eZ MjzBLLjZMW1CCZsXPKgcC rnac3hfU9zCk9+BTzpu7x yy3hwhQh0MnHs NWNhzzDtsKynJHT4k0FuN y22G4UrlGmkj6YzItn3ok 22lHTgm6I5cKG6HFcpGNF cvI8wRShnFgU5 ITWuPyOnqT99bPWdSTpkV a3cfWihdIikWI4mQTMgwp jmXOHhgE6fKBTifFHjiSo mDJ7pUZShoefj w307NlExMVT1FHLvhHPgL 0AgqY1sKxSsKCFcOAPnD2 MtmUXlABttU396PSuzYhO 8OWJmpqBvZ2Me CDInaSzbJiZ8x4E0Dg3Xy 0ClzziiJTR0DQtxYSP4Mr QjDtTdTdD8I4HnVbr0KMF smPuyDX0uY3Xk ZTAsqtloiyqrnAJ0WQUiA IAhgG05yDCoIEuxVm2kq9 T7f189TIRkGNSwhA99Ns4 udDogMTBwdCBU uN2pwfhmk3zqdxjeLrTpP GHjDAq1AHr7QDDmeKtcXj KrRIL5JdU1JTW9hSRjyT1 jwJylurbemT9w Oyc+T66tmS4wZFP9VRP6y xymEKFfrbJrIZ90VF52K5 RyPjwvdGFibGU+PGRpdiB yiWhbUP5zAeCy p1pza4VyLGihN4NzXBYqM JmpDzs9PAFmNMG5bHF1tO 8bKXGzFMjak6D5eCJ5F5H scyIbpa4ig6ut OYNfXJbpE23slCWmw2L9P WZrePO1COWbqSqyGjQwiL 93Oyc+VSYdjMjrk4ZdNec sc0jhv5pngCc0 IxHcMOPyomFhtTwjXQT9m 3FxMk84D37lVAquAYUiPK OaAWPsLGRjjQbioo3upL6 wIi8+PGNvbCB3 tOF6iW0fMYIuLcP3BQbtQ 001DdPxiVHsEnbae3cis3 zrjLn4BjIcVQQqoaVymWx fTYG8n7IpGb98 V62oBIkeJPWxYTXnTJUmQ CHonVucpf0qqK5rZo4+PC 0jr1jlkk73yB50hCN+PHR eYMO2kHtcUAam OJLcoR1hXPaqNnC8NNQxR gVdbO74kHQfAVmdEs8rgU jqtKfhSN8lVTOgntwlh57 8GbEux2ljUAJy cLXpBJdiEPU6B55uf7K2S PWfHYJyMKV7oQF3tP8olY lnbjogbGVmdDsgdmVydGl pGLctECteX272 IHRvcDsnPlBhdGllbnQgT vEhNGl5J2HyHos9HHBarC pzDO5ivLSwJCalMu9fhJw enUqsMM3cHAMk enmdm277XwKdw7rgGHDcp ZZrVAilWWA5U26ym9L5NO BfADNnBGR0tWN4tZ5liLj nbjogbGVmdDsg ufDneMgiVFvrWPayV310P HRvcDsnPkJpcnRoIERhdG Z1OT68VT10xJNjh2W5rPG 5N5BcLSTfxqvs apwwhXQ9XYEwUEHniA82Q v9kmQmtSc4mRJXyREB5ID CnqKQlP9NjcA3xUoMiRUF bUPMoY9OukDGb BIqvX435DEapUeX3ARTyq fTsY2MtDGZikZvlKjI8u0 G5Nm8ZF5R3LJ69QF26dAU sr7M6uXA2U1Be CNVcxvwymkmokZO1DJJpU TBzhF92Ke0eyKtlNt3tNE CiCQH6CNLfsFIpW7JxyG9 yOiAjMDAwMDAw E1NtpFUvOLejC517UQmmA yC2NIJpnqIwA0LuEOQvcL isImA8w3H9Uu6ZZNw2FX2 7HG67fQAxt3B1 oKR0I7QzJUCkbuarldzft MP5MXQhYCZvlY59Xs0jmQ jkBj0mJIDhLDL4HFVpfEX zS5BgdW8fDoEj YWXlDGRuY7EapHRrQTlpA 954YBvdIeB9ZKOttqVaT7 SqDTFjrTvjKcH1j1G4Uj8 XKBQyUJ12VJF2 jYX2CW37TE70W9YmZwzqk GFibGU+PHRhYmxlIHdpZH RoPScxMDAlJyBzdHlsZT0 uWt7fSQTzHKDl lXheeLSeBzWyh5saYKFgS DtfLZ3waFsvV5SliPC5SW Zrg5s0Pc22O17fI7NyqDJ +TSTlcJR5uEZ5 oN5cQaKqOdQ3JOriV086H mNufCAaEhruo0xcf8ctxS u5CfV0AADyoiOzkWuaFVQ 5i7IqTq97T56q IHdpZHRoPSIxNSUiIHZhb Mbgpl3fuJ6dDh3+PGNvbC G7vOG9xU6oJcRoMxR0JIc fT861GfEvlUGe Jiyps2xlo5asgRi9CqOtS DYnsmOcdWluAKD0l1JcFo 43O8WcbApys6UoVqw3ei8 0aWFcl3W6aBX6 O0KhQIUdmbbsiRDulXkiV W3eNEAlubizKREbeR0qWX PoK3q0ObBjGzU9BUfbP3D zdaW5PWQllDFa CAzyJEG8J64jx5L7JXSfF DArIXN6kNW4zI3wyMrque ogbGVmdDsgdmVydGljYWw tRCezR979WLUg yRlsXLCopI3jPHOflQSka VrdMU7xSKFrpvwzMaYEKZ ATIENLHQjWAVQDFN49RM6 5jLNwv7I0dGG6 U5OiQMRhspxxnbcbxGM8T HPsEIJeiS83wWUcUJvnLj 1xw0Q1a286BWIrDFOgnE5 3Jk1vjJbgJUSu yVNFqG8uoispv3lvhpdmK eAdJEHaGVb9NZg3YKJkxH xwOpAgYGB7XoF4RYK7mPT btF5ofRbgprbj pC5oUcv+FEQxGvcoGWp7X jwvdGQ+CLGcZHY6zNylQQ onIDVkvM3hURLmS3z7RmM cHtQ5AXeeD0Od CCLoeqeqNa46zM0jPuRsT yO6SUakP0HtbkI2WLKpxY HuMWoiIUH6X05wj1A9URW cBCNbFSS0cDC6 uN8unEtticparTLzzJlrl aSxgUusCPuyCBwgU804HC FxiOzdQjN9OLzfOJQoNS4 2DY84nBJgl6O6 lVX8O2NtOKKzzjtzhlpju PD3KYCiIQPjwL13aCDeKW lkKg5vh7W4i402SBKpMEW izP10Xe2ijBuf EEYzuAKEuR9jrnzes5npl dtrPdWgGALbPFo8NIz4WG RceJpqNfCeQSN2FbZ3ACQ 8aSLuyS1ihPyi fcivfE1yMck+RmVtYWxlP R45QG44eWOvg1Y5kFU5F9 MyRGYgxymembfelRK3PLM oOTDpcG94gKNp LHzdPx3hw7F3o802YMCpH ZQprZ33Nm0ggSzsRZRsxQ TZfJ4odttul5nkvtqoKkY kJOFpOFk5TXk6 QNLmvCjfZxQcBGC6RkM1M VG8uUJmmG5mvOxwipilnB 9wOyc+AM8cpdnthkL2YA8 8RW73I0QjXghx dGFibGU+PHRhYmxlIHdpZ HRoPScxMDAlJyBzdHlsZT 5lVg6tUHBzSTUjqLzpsFN qXzCfp6tqRSTj DPcbDW4hwAxpC8OjeIV6J WCbe0e7Eo52S10aN1CqrM A+PJPwhPG5vZE3mR6uEpD jXaA2IEfmA841 DdQnnHCxXcsye1xxm1hyb Hi0OvAuTGYpssWwrDdaQD Z0s5MfFg57M90sTXrqFZK oPSIyMCUiIHZh lVtcdk6tmS4jRz9+PGNvb TG0qTK6jK8pHzDmXxJ6LC opO859ZyYghHWmIpboS91 dJ7LidLT+PHRy Twd8ZBSvtZzkCD0tfVJdA JwdYg6xUII0IuNbKeDpIW ewJ4OwBBPihbiqzoayuNZ 6RSBeLEQoaU68 Hd8xgIegMl4jWQBuFIO5H TTlvLIqR1XirG4iPiCoUD FsGFDjV9ScsHGaBZpwD72 0QCabHhA9ZTSr qwSsD5DvYQMbmQfgSkZ6p 2P9Dp9OdWtarCLxWP7aXu BdFUi2Z3DsUhg3NRIrkCf vTV0utEBwITfk Uy1npCeijZdyVL5eGUKkl csre157ZbLty8nrROLqaU DvHDwlPRP1I17gv1V6RHT aNZBhCWC5xQA3 qH7ueScjekpdbAEtrQrnl uUldMszKLuhYJrgQ948SH GaeKbnCvGDTbc8I8OhEmf 3LIHdkVzjZV0e sDViOTjfJk2gcWmdoLuaM D2kFLAzjxzvm646GnEgr2 rzCHKszJGmHPbvKGJ9M63 mx0L3PULdXKXn JBF0cAS6aF1voDppfaezh GVmdDsgdmVydGljYWwtYW ekL314IBLtzPcuFf4VRht 1D9KaVdx8IMVw sOizBK5qbBBqICbgQh3px HnjbOcbVW4rXTNdpaypa9 40UbQkx1mbWRTrtIUkATc wWMZ0I59qo3Q3 RVVzGATfJML3dDY8vL2jr GlnbjogbGVmdDsgdmVydG onLFtcHHqzS551FLLuwYc nPlBheWVyOjwv dGQ+DX81xy27I2XfMreoM lb2KJAvXXR5kTF9tW1eDU QnJSkxb7A0rSI1G7GqxhE ywj3it5hmHVBi ZTog (more content not included)... Normal [facility] Consent for Treatmenton Consent for Treatment [id number]#1 .00CD:127 Normal [facility] Discharge Instructionson Discharge Instructions [id number]# 1.00CD:127 Normal [facility] ED Clinical Summaryon 2021 ED Clinical Summary [place] [id number] ED Clinical Summary Person Information Name: BROOKLYNN KENYON [facility] Age: 26 Years : 1995 Sex: Female Language: Amharic PCP: MICHAEL HELMS MD Marital Status: Phone: [phone] Visit Id: Visit Reason: Dog bite: hand; [...] 08/08/2021 15:44:14 08/08/2021 15:44:14 08/08/2021 15:44:14 ADDRESS: [address] [place] [phone] PHYS DOC NOTES: MEDICAL INFORMATION: Prescriptions Given: New Medications [facility]/pharmacy #[id number], [address], [place] [id number], [phone] amoxicillin-clavulana te (Augmentin 875 mg oral tablet) [...] PATIENT EDUCATION INFORMATION: Instructions: Animal Bite, Adult, Rcua-gh-Aqnc Follow up: With: Address: When: MICHAEL HELMS [address] [place], [place] [id number] Business (1) In 3 days 08/11/2021 DIAGNOSIS: 1:Dog bite of middle finger; Bitten by dog, initial encounter Normal [facility] ED Patient Education Noteon 08-08-2021 ED Patient [...] cannot use soap and water, use hand city letter carrier. ? Change your bandage as told by [...] bad smell. Medicines ? Take or apply aobs-dfv-ewbbgcr and prescription medicines only as told by [...] 03/25/2006 Document Revised: 03/20/2018 Document Reviewed: 10/03/2017 [employer] Patient Education ? 2019 [employer] Normal [facility] ED Patient Summaryon 022 ED Patient Summary [place] [id number] Patient Discharge Instructions Person Information Name: BROOKLYNN KENYON Age: 26 Years Arrival Date: 08/08/2021 14:29:26 Discharge Diagnosis: 1:Dog bite of middle finger; Bitten by dog, initial encounter Primary Care Physician: MICHAEL HELMS MD Provider Information Primary Provider: Sourav Stinson DO Advanced Nurse Prn:None The exam and treatment you received in the Emergency Department were for an urgent problem and are not intended as complete care. It is important that you follow up with a doctor, nurse practitioner, or physician?s housing assistant for ongoing care. If your symptoms [...] When: MICHAEL HELMS [address] [place], [place] [id number] [facility] (1) In 3 days 08/11/2021 In the event that this physician does not participate in your insurance network, please consult with your insurance company to find a nearby participating provider. Patient Education Materials: Animal Bite, Adult, Txvg-ns-Wvhg A MESSAGE TO ALL PATIENTS REGARDING OPIOIDS PRESCRIPTION OPIOIDS: WHAT YOU NEED TO KNOW Prescription opioids can be used to help relieve dqyvpmne-jo-dhovkc pain and are often prescribed following a [...] be struggling with addiction, tell your health day care attendant and ask for guidance or call [facility] National Helpline at [phone] (more content not included)... Normal [facility] Coding Summary.on 02-24-2021 Coding Summary. [id number] [id number]+PGhlYWQ+ST3MMKK [id number] MRVKHANREX0PKA7mrHF8K KuwV0OpnmNp XwtltIAsIK08GNa3VGG3v ByxEGtwgZ4efOKqO1b9Wl YuNX36xW03OHanZKQlMsZ 3LjZpbjsgbWFy R0mhCwBpcIWnOlp+PHRhY mxlIHdpZHRoPScxMDAlJy YahNoqUH1wVe6oRCZnFWN vbGxhcHNlOiBj k9iiZRBeYBxdEN7geWcyQ 6GwvRO6VDLse6h4Np58jE I+QKTmKXD6xNjpLGpcd15 2TsUvm5pzOUI1 gIVsOIstPTD8J88ep2N1D MOrJPXcTKF9zLC5wJ1wuV dwgtgoB5AuiZWmDqB5CVX 7pCXhtF0puStd iyvepQ4hHdo+V65BGM9YG UZJQC2OCwh0M6QjYplqhW I+RI82QNSaAU88zURqcUK vh9qdfJh8RmHg KCItKOG3zWysQFjmt7VgY ILlL59wvKWav7O2DWYobM fqtVNiQeIpkMJ4vB4hHGa yvypvg7ycdcwq Grsme5xydw53rM40R83uQ HlgPGUuNAE3CBYbULChpB cavo9ytX0vLi4+MYnvj9o sj6lmaFw8ApDx VCAjwlYtoOvaVDY2q3RnZ o20U5ZokMvgp8RvJqh8oq 89qGYqx4R5gMM3AJxfBJE dbJ8zOUiyWcN4 YELhEuRbwV48uHJvEVadZ h1vgMjpcIptVL5wCAUbju kgHZZxaA4uWSSksCTlbXh jHK9rOTFtisey g405RgStSXP1MXItaUCmS 0GsxK7hWpUyASDjVULuS0 AolPBaUPkiK356PPzrGoN 9YIEjrmHhY6Nu RZJqzWeuAaC6r7W8Vs5Fr 5NonpvbJNV2GFllGTVqRs N5PgUpVqH2K2CcHzm3QFL dsQhvXS9rK4Cx KSBhgmfpzwxwvUU1LBMnN SQcoE54xMSgBHdqHk8hg8 I1y735FNRcXIMiaA02Tr2 udDogMTBwdCBU dZ8sbenra4uzhemeWrEgR JYrQAo3QPo9QPFysCodAc CyZFX4FsI0ACT2yEDvzB5 bwUrzlmrxeA1w Oyc+M95soB9dBDR8SAO1a irgQFKaenCsLP16IA26B6 RyPjwvdGFibGU+PGRpdiB isFdaCB1gFdLc d5abz2EzAAzeQ8YeOESpH DocNre2PRRbUVY1nHB7jQ 0rQJVlBNdrr8R9wRQ2M1X dzoWbcb7py3fr YLAcLXpuN97ahCKms4S8S GBynCE3LZXzhCqvOkCrbJ 93Oyc+JGHnrEcwh0SwYqv rm7dys0crlWq3 FvUaEYTpkeZnlSblDZR6o 2RtUw26F28iUCevTRLpOQ YfHUFcKNDacVfbjm5beI7 wIi8+PGNvbCB3 qTT8xG8aOJOqWrU2YMuyN 977KuParFGgXhqiz9tzd3 epfKq5MfFwFXSavgOntNu zNNL9h4IuOz54 I80fBUihDVUcGKQgXOTnA EVolKcpxh4waQ0pPt7+PC 2wc1csgy77kN74tGA+PHR iSMT3zReyCAqm YYWdnS8xAUvxFmE5UEEnO fMdkP24sXSkRMcsCf9jlF fixVssFL6iTQUcttigb22 9CdXji2zdVJSr zEZbPFxfTXU2B61ja3P6N AEfEZIfAVP6rSM6jE7xvU lnbjogbGVmdDsgdmVydGl jOTjlXEktW444 IHRvcDsnPlBhdGllbnQgT fGjWWw2E8NeRvl7TNNqkM ynMG7sdGZeBDnxTj1kjNc gfFbjLJ3rCBVa qoldv387TfWqa6viPSInd SGqKRdyTWW5A58pt2G2XR PmLIHgSVY3jVO6xQ4ayXj nbjogbGVmdDsg ixWyyUajSIecVFglW243H HRvcDsnPkJpcnRoIERhdG J4AG96KQ40tEQox1E9wFE 4Y9OiAQQlhcex efxvgSS7KNCiCPEqhQ14R g1gdSjxGf8sHJYkFLM5TQ NzjOOoW3UvrS4nOrHvXFD lXDMbC4JetXRu CXljB480TTfhRoA5LJZcc nRnQ0ElSAGskTpzViZ4m0 T0Bg9WL4D2BI33HY57sFE wm0M4bKD5H3Yh CHQqtdsdyxqxiRT1HKFsO GKgiC29Pp0asYksTp4hWZ JfYFP3PAIvcEIlP3QtwL9 yOiAjMDAwMDAw W9VkuSZsLUgoY551FGhjZ kX9CTOaapHqA5IsZDXroQ lsJvW1k6P2Js7HEWx7SN9 1ZX91iFVvs0G6 sAZ0E7PcRFFltowexrbdx QW5XYVhHWBltP02Sx7ztP kzGi6wCXWlGOA1PBEycYB hE3VubZ7aYeIb TMCyUCCrL4RejNUhYPzkB 320EHgjOeK3UEAqenUuE4 VsMUNonFhuZiE4f9S3Ww7 [id number] [id number] GFibGU+PHRhYmxlIHdpZH RoPScxMDAlJyBzdHlsZT0 eTk9bQQEwQRPf cQdwqLQlMpRbp1jaUDMdL TzvEB8tjZhzN1UsoKX8RX Jsm2b0Qe46X43vB7AzvUO +CJNwuDA2tOL8 iB4hVdOpIhR2ACyuH328O rIqrGPgWjcas3vps1wscG p3FzR0WDAdmlJwiXszNOK 9p6SmFm37H09d IHdpZHRoPSIxNSUiIHZhb Uyyms0fwY7hJi8+PGNvbC Z9kTR5gL4oPaFsVbE7DRx sM617JlTmhDTj Tgzas7ozd9hsrNu7YbSeN PJlcoDcqSsuPMZ5n3TxXo 42C6MpmSpmm5IdPzi0ua2 3zPZln3W6bWM8 B8HmTHEazukwlQTwuTqfY I6kARPvkpalWQBkpW3fRY IwA6k9ZnJcCfC9WPdhI1N bpxD7QMYdhTFt HGcgVEU2I16vy9I1ZAAvA KHnKST9wPC8gU7lrIvssx ogbGVmdDsgdmVydGljYWw aXJabN370OFVa zPnbRHVarS7nAZLmsHMqi GsyMY1rZUNqlgewFxXOVY HITGCLEAwIIUXWQY53WD5 9jNZmo8Q1zQA6 H7EqBSUknwztqjdzxPC8D MRsODNdrA95eKJfSGvhEv 6ni0B2n203SNKwUVVioG7 9Bc3xfBldTSFy kVYRiO5jqvtqo2grbzrrM nZuQYLcJVv7UOb9ZWVwxT jrXwZrAKJ2SdM0CCH9kSX ouM3xzVguqrgn iX5mYmq+BQAsFrneBDb1J jwvdGQ+HWUcNNK1rMktGL tqMSCziG0aQBJgT7l4AqK aJeH0EQdkV2Ii ULGaivjtBl16cV8mAdZnX kH0FFzrJ4PevwH9SZRwqY VzBSczUVN8Y76sp0M0KHK pANKlSMQ8kVU4 fT3jrOacfvcftPOrqUbgz cWwnSvuKFxxYFniS360PV QocSibGwC1ZGugBFAsKX3 7LM16aCLki8C9 jGW9X1UwNIHzmoqtmdvvg IQ5OCLcXFNbnZ12tJZqGN zsEs9so9X2v404JKWlJPX xoC59Me6twEhy LHGhjWNGeT5vybwpa6nyh uxrDuGyFCXpMOg4IGk1QY RbcKrqPkKeLGN2CdI4GYF 4tDFmdB9dnIeb jsdlgK2zVbm+RmVtYWxlP F61TC81vQHte2J4aRI7C7 GmLXWbxtdhisnfzVX7YUN rSTKxlY76tTLr HNtzDm7pt5N5t846NMZcB GOiyW26Yf4bdQgsXUYewR JCtU2mzfzaz8nkzgweZqV hZNVhVRz7KDv2 NIOljKhmDjYfLKD1XpE9F UB5fOMwvB1mlFejvevyuZ 9wOyc+RG1ncyrvnrO8DZ6 1ZV17J7GnBrnl dGFibGU+PHRhYmxlIHdpZ HRoPScxMDAlJyBzdHlsZT 0gHg4hFUSrTPAiaQbdbBC qUtSqk6ftBPTu AOpoWK0zpDjdS0IyjMP2V FLjl9f4Rw43D54eQ6YluF A+PLLfhOO9rXX0jG3iUaJ oYbH8NDdhQ574 QgUunGGgUtgjh5osl4izq Gz1WyElUUSnmlTmsQfpHT I2d5QnWi93A08wYTmlAEK oPSIyMCUiIHZh nZpxwh0xnX1mXz2+PGNvb YY9eIP3dE3bUqOtPvX2IA gkC552EnLijKBjCuvyX37 yM8AxnNG+PHRy Opa8FCDymTktGG9ahLOdJ CfzVj3qRMZ3PwNnGxEgES lgS9BuOUEmskbfwwuonWF 7YLJnPKDxaP08 Kv9nkTixOa7jCNTzKDT8P BXorAHaD2XamR8qSpBmLQ CwKILoH5FqzOCpHEpsG72 2CMjvEwI1ADSt vhAsJ1PfSOBlkXiqFxP1c 6A2Jm1NjBtusUSrOY8kWf PcRRz7V2PvGia3RASojHm wWE1bsAHyISsl Jl0rxLvalPjzQO8uXEFvm ezbt844QvVfk2tvUOEjfK XuMCitIRV9O35ke5Z4FKG hWYNmADB1uNC3 nQ9fsWcgqxhluHRnlEwwm sVxyRnlEUtdBVqyB314IG MmrAjoCoZZPmb4O2CtJdv 8OVNsqPvuVM6p rPWwQDcjEq7vyVynrAhtQ J0mZMAgzydkv964FwQkr7 dwJFLxdWOuAJfxWBD3Y33 dl1U5RIJyHYLl TGJ8zMF4zX5dhDstqgjme GVmdDsgdmVydGljYWwtYW hdY242XSHalFnkYq6HSmr 7U2VnTee1OIJu wPzcIL1esHEyBCjaFl4yk OqriKpmUM0qICQjjhpet8 72HkHys4zwICKhaCBgPKd dZWS4K02jw1S9 XVGnTVWdISJ9wYJ5cJ9cc GlnbjogbGVmdDsgdmVydG qgMLskTHjjG603VHFmqYq nPlBheWVyOjwv dGQ+TO12bz00B5GhGpimN ma9GYCzOJX5oNG7yT3dAF BfKOlmn7D0lDC0E2YhimP rmu8va3upJKAa ZTog (more content not included)... Normal [facility] .Manual Abson 02-23-2021 Basophils/Leukocyte s Manual cnt (Bld) [Pure # fraction] 0.0 E9/L Normal 0.0-0.2 [facility] Comment on above: Performed By: #### 2 723266, 16109220, 56041837, 20712042, 0911201, 5886364 ####[address] [place] [address] Eosinophils/Leukocy kenyon Manual cnt (Bld) [Pure # fraction] 0.0 E9/L Normal 0.0-0.5 [facility] Comment on above: Performed By: #### 2 891026, 09515714, 77658799, 39327656, 9702999, 1746686 ####[address] [address] Lymphocytes/Leukocy kenyon Manual cnt (Bld) [Pure # fraction] 1.8 E9/L Normal 1.0-4.0 [facility] Comment on above: Performed By: #### 2 340952, 95819546, 20090374, 08780700, 4342977, 6475588 ####[address] [address] Monocytes/Leukocyte s Manual cnt (Bld) [Pure # fraction] 0.3 E9/L Normal 0.2-1.0 [facility] Comment on above: Performed By: #### 2 177011, 18618767, 41373260, 04005502, 2057018, 3033464 ####[address] [address] Neutrophils/Leukocy kenyon Auto (Bld) [Pure # fraction] 1.7 E9/L Low 2.0-7.5 [facility] Comment on above: Performed By: #### 2 045748, 16536891, 57816740, 33631991, 0716479, 5125546 ####[address] [address] BMPon 02-23-2021 Creatinine [Mass/Vol] 0.7 mg/dL Normal 0.5-1.3 [facility] Comment on above: Performed By: #### 2 611790, 75653950, 31836554, 06773030, 8615527, 1608670 ####[facility] [address] [place] [address] Urea nitrogen [Mass/Vol] 7 mg/dL Normal 5-21 [facility] Comment on above: Performed By: #### 2 649643, 88047638, 58505568, 07486844, 4043928, 1634047 ####[facility] [address] [place] [address] Urea nitrogen/Creatinine [Mass ratio] 10 No Units Normal 10-20 [facility] Comment on above: Performed By: #### 2 941955, 73584968, 31133860, 59894254, 9780323, 4868749 ####[facility] [address] [place] [address] Anion gap [Moles/Vol] 13 mmol/L Normal 6-16 [facility] Comment on above: Performed By: #### 2 199521, 81238378, 97604971, 75858467, 4969821, 9580419 ####[facility] [address] [place] [address] Calcium [Mass/Vol] 9.0 mg/dL Normal 8.9-11.1 [facility] Comment on above: Performed By: #### 2 386517, 82601168, 49109549, 18991652, 6349685, 3460828 ####[facility] [address] [place] [address] Chloride [Moles/Vol] 103 mmol/L Normal 101-111 [facility] Comment on above: Performed By: #### 2 939599, 91687558, 94873119, 73446386, 6216573, 8759188 ####[facility] [address] [place] [address] CO2 [Moles/Vol] 22 mmol/L Normal 21-31 [facility] Comment on above: Performed By: #### 2 835758, 13224603, 92362135, 74740455, 5520315, 9727584 ####[facility] [address] [place] [address] Glucose [Mass/Vol] 129 mg/dL Normal 55-199 [facility] Comment on above: Result Comment: If t his glucose result represents a fasting glucose, interpretation should refer to the following reference range: 55-99 mg/dL Performed By: #### 2 867554, 23589499, 72129572, 42748841, 5703839, 8385949 ####[facility] [address] [place] [address] Potassium [Moles/Vol] 3.3 mmol/L Low 3.5-5.3 [facility] Comment on above: Performed By: #### 2 447571, 96856656, 33939869, 69428927, 1197650, 6070815 ####[facility] [address] [place] [address] Sodium [Moles/Vol] 135 mmol/L Normal 135-145 [facility] Comment on above: Performed By: #### 2 339154, 68770193, 41764812, 17145714, 8949010, 7561468 ####[facility] [address] [place] [address] CBC w/ Auto Diffon Erythrocyte distribution width (RBC) [Ratio] 13.5 % Normal 10.9-14.2 [facility] Comment on above: Performed By: #### 2 547534, 05126463, 50737117, 46650455, 0609896, 4567909 ####[facility] [address] [place] [address] Hematocrit (Bld) [Volume fraction] 37.1 % Normal 34.0-46.0 [facility] Comment on above: Performed By: #### 2 608232, 23041157, 83070477, 56534204, 7164501, 0237224 ####[facility] [address] [place] [address] Hemoglobin (Bld) [Mass/Vol] 12.5 g/dL Normal 12.0-16.0 [facility] Comment on above: Performed By: #### 2 879493, 12761770, 29552243, 28609906, 9527547, 9161607 ####[facility] [address] [place] [address] MCH (RBC) [Entitic mass] 29.4 pg Normal 27.0-34.0 [facility] Comment on above: Performed By: #### 2 289961, 51550048, 94579140, 95752919, 0225784, 1088782 ####[address] [place] [address] MCHC (RBC) [Mass/Vol] 33.6 g/dL Normal 31.4-36.0 [facility] Comment on above: Performed By: #### 2 148149, 12251300, 14082340, 23332138, 1544902, 0162135 ####[address] [address] MCV (RBC) [Entitic vol] 87.4 fL Normal 80.0-100.0 [facility] Comment on above: Performed By: #### 2 744724, 24776089, 30150713, 22430253, 8006334, 0828319 ####[address] [address] Platelet mean volume (Bld) [Entitic vol] 9.4 fL Normal 6.4-10.8 [facility] Comment on above: Performed By: #### 2 437635, 50786407, 81039234, 18825600, 1271181, 7938256 ####[address] [address] Platelets (Bld) [#/Vol] 208.0 E9/L Normal 150.0-500.0 [facility] Comment on above: Performed By: #### 2 868574, 48797537, 63409110, 16300887, 7592629, 9238482 ####[facility] [address] [place] [address] RBC (Bld) [#/Vol] 4.2 E12/L Low 4.3-5.9 [facility] Comment on above: Performed By: #### 2 523291, 59584342, 36346259, 79459438, 5717637, 7935363 ####[facility] [address] [place] [address] WBC corrected for nucl RBC Auto (Bld) [#/Vol] 3.8 E9/L Low 4.0-11.0 [facility] Comment on above: Performed By: #### 2 429003, 73965051, 49870964, 54525400, 3280179, 4386828 ####[facility] [address] [place] [address] Consent for Treatmenton 02-06 Consent for Treatment [id number] .[id number]:127 Normal [facility] Discharge Instructionson Discharge Instructions [id number] .[id number]:127 Normal [facility] ED Clinical Summaryon 2020 ED Clinical Summary [address] [address] ED Clinical Summary Person Information Name: BROOKLYNN KENYON [facility] Age: 26 Years : 1995 Sex: Female Language: Amharic PCP: MICHAEL HELMS MD Marital Status: Phone: [phone] Visit Id: Visit Reason: Shortness of breath; [...] 02/23/2021 15:23:48 02/23/2021 15:23:48 02/23/2021 15:23:48 ADDRESS: [facility] [phone] PHYS DOC NOTES: MEDICAL INFORMATION: Prescriptions Given: [...] Follow up: With: Address: When: MICHAEL HELMS [address] [place] [id number] Business (1) In 3 days 02/26/2021 DIAGNOSIS: 1:Vaccine reaction Normal [facility] ED Note-Physicianon 02-24-20 ED Note-Physician Basic Information Time Seen: Ayanna MEJIARobert 02/23/2021 13:01 Chief Complaint Had COVID vaccine [...] MICHAEL HELMS In 3 days 02/26/[address] [place] [address] Business (1) Additional Instructions: Patient Education Post-Injection Inflammatory Reaction Attestation Patient seen and evaluated by the physician housing assistant. Attending physician was present in the emergency department and supervised care. This report was transcribed using voice recognition software. Every effort was made to ensure accuracy, however, inadvertently computerized pin setter mistakes may be present. Appropriate healthcare PPE [...] % (02/23/21 (more content not included)... Normal [facility] Comment on above: Result Comment: Elec tronically [...] a physical exam. During the exam, a shishmaref ira may be drawn around the injection site. The shishmaref ira helps to show whether redness in the area is spreading. How is this treated? Treatment for this condition depends on what caused the reaction and how severe the reaction is. Treatment may include: ? Putting an ice pack over the injection site. ? Taking a nonsteroidal anti-inflammatory drug (NSAID) to lessen swelling and itching. ? Taking antibiotic medicine. ? Taking zbpj-wnh-liiwtur pain medicine. If the reaction affects a joint, you may also need to rest the joint for a while. Follow these instructions at home: Medicines ? If you were prescribed antibiotic medicine, take or apply it as told by your health care provider. Do not stop taking or applying the antibiotic even if you start to feel better. ? Take ljev-njg-soojkll and prescription medicines only as told by [...] Reviewed: 03/02/2019 Elsevier Patient Education ? 2019 BLOVES. Normal [facility] ED Patient Summaryon 021 ED Patient Summary [address] [address] Patient Discharge Instructions Person Information Name: BROOKLYNN KENYON Age: 26 Years Arrival Date: 02/23/2021 12:58:05 Discharge Diagnosis: 1:Vaccine reaction Primary Care Physician: MICHAEL HELMS MD Provider Information Primary Provider: Julee Herrera M.D. Advanced Nurse Prn:Robert Urena PA-C The exam and treatment you received in the Emergency Department were for an urgent problem and are not intended as complete care. It is important that you follow up with a doctor, nurse practitioner, or physician?s housing assistant for ongoing care. If your symptoms [...] Follow-up Instructions: With: Address: When: MICHAEL HELMS [address] [place] [address] [facility] (1) In 3 days 02/26/2021 In the event that this physician does not participate in your insurance network, please consult with your insurance company to find a nearby participating provider. Patient Education Materials: Post-Injection Inflammatory Reaction A MESSAGE TO ALL PATIENTS REGARDING OPIOIDS PRESCRIPTION OPIOIDS: WHAT YOU NEED TO KNOW Prescription opioids can be used to help relieve oekuzkuv-gg-awjdda pain and are often prescribed following a [...] be struggling with addiction, tell your health day care attendant and ask for guidance or call [facility]?S [facility] Helpline at [phone]. (more content not included)... Normal [facility] Manual Diffon 02-23-2021 Band form neutrophils/100 WBC (Bld) 6 % Normal 0-10 [facility] Comment on above: Order Comment: Order Added by Discern Expert. Performed By: #### 2 994292, 25624371, 90062318, 96903592, 4560187, 1267415 ####[facility] [address] [place] [address] Basophils/100 WBC (Bld) 0 % Normal 0-2 [facility] Comment on above: Order Comment: Order Added by Discern Expert. Performed By: #### 2 468347, 42083458, 40330289, 70855920, 2422330, 9398261 ####[facility] [address] [place] [address] Eosinophils/100 WBC (Bld) 1 % Normal 0-8 [facility] Comment on above: Order Comment: Order Added by Discern Expert. Performed By: #### 2 986628, 43323745, 44493334, 81634652, 2615808, 3775837 ####[facility] [address] [place] [address] Lymphocytes/100 WBC (Bld) 44 % Normal 14-50 [facility] Comment on above: Order Comment: Order Added by Discern Expert. Performed By: #### 2 317148, 80252126, 65163510, 51997656, 7007623, 1308361 ####[facility] [address] [place] [address] Monocytes/100 WBC (Bld) 7 % Normal 4-14 [facility] Comment on above: Order Comment: Order Added by Discern Expert. Performed By: #### 2 620037, 75355916, 52781758, 86063075, 8560538, 2139641 ####[facility] [address] [place] [address] Morphology Mateusz (Bld) [Interp] Normal Normal [facility] Comment on above: Order Comment: Order Added by Discern Expert. Performed By: #### 2 803547, 39235830, 53138544, 80936901, 6446681, 9875901 ####[facility] [address] [place] [address] Segmented neutrophils/100 WBC (Bld) 39 % Normal 36-75 [facility] Comment on above: Order Comment: Order Added by Discern Expert. Performed By: #### 2 190381, 67005285, 58445623, 69168974, 1835957, 3429657 ####[facility] [address] [place] [address] Variant lymphocytes LM Ql (Bld) 3 % Invalid Interpretation Code [facility] Comment on above: Order Comment: Order Added by Discern Expert. Performed By: #### 2 783367, 59930388, 44663353, 06246741, 3773627, 6512042 ####[facility] [address] [place] [address] Prescriptions/Work Noteson 1 04-25-2020 Prescriptions/Work Notes [id number]:127 Normal [facility] Troponin 0 Hr.on 02-23-2021 Troponin I.cardiac [Mass/Vol] 2.30 pg/mL Low 10.10-27.10 [facility] Comment on above: Result Comment: The 95% CI (Confidence Interval) PPV (Positive Predictive Value) for myocardial infarction in females is 38 pg/mL, in males 51 pg/mL. The results should be used in conjunction with clinical conditions of myocardial infarction. (Access High Sensitivity Troponin I Instructions For Use, Emre Orlando, November 2017) Performed By: #### 2 884446, 50423322, 29076094, 94663047, 4399610, 2014727 ####[facility] [address] [place] [address] XR Chest Single Viewon 02-23 XR Chest [...] V. Transcribed by: KEMAR Technologist: DYAN Normal [facility] eGFRon 02-23-2021 GFR/1.73 sq M.predicted among blacks MDRD (S/P/Bld) [Vol rate/Area] mL/min/{1.73_m2} Normal >=59 [facility] Comment on above: Order Comment: Order added by Discern Expert. Result Comment: eGFR is race adjusted. AA=. Performed By: #### 2 576026, 04457004, 09292749, 11116747, 0956116, 4942712 ####[facility] [address] [place] [address] GFR/1.73 sq M.predicted among non-blacks MDRD (S/P/Bld) [Vol rate/Area] mL/min/{1.73_m2} Normal >=59 [facility] Comment on above: Order Comment: Order added by Discern Expert. Result Comment: Billing And Quality Technician jorden kidney disease could be indicated at eGFR's of less than 60 mL/min/1.73m2. Kidney failure is indicated at less than 15 mL/min/1.73m2. Performed By: #### 2 529725, 79916209, 29611000, 06415372, 9084347, 9994912 ####[facility] [address] [place] [address] Ambulatory Clinical Summaryo 10-14-2020 Ambulatory Clinical Summary {[id number] Normal [facility] Vital Signs Date Time Vital Sign Value Performing Clinician Facility 02-19-2024 15:41-0500 Body mass index (BMI) [Ratio] 39.91 kg/m2 Celeste Morro DO Work Phone: [facility] 02-19-2024 15:41-0500 Body weight 115.58 kg Celeste Morro DO Work Phone: [facility] 02-19-2024 15:41-0500 Diastolic blood pressure 80 mm[Hg] Celeste Morro DO Work Phone: [facility] 02-19-2024 15:41-0500 Systolic blood pressure 126 mm[Hg] Celeste Morro DO Work Phone: [facility] 01-22-2024 15:16-0400 Body mass index (BMI) [Ratio] 39.47 kg/m2 Celeste Morro DO Work Phone: [facility] 01-22-2024 15:16-0400 Body weight 114.31 kg Celeste Morro DO Work Phone: [facility] 01-22-2024 15:16-0400 Diastolic blood pressure 72 mm[Hg] Celeste Morro DO Work Phone: [facility] 01-22-2024 15:16-0400 Systolic blood pressure 124 mm[Hg] Celeste Morro DO Work Phone: [facility] 06-22-2022 09:21-0400 Body height 167.6 cm ANTELMO Bills MD Work Phone: [facility] 06-22-2022 09:21-0400 Body weight 112.49 kg ANTELMO Bills MD Work Phone: [facility] 08-08-2021 14:31-0400 Body temperature 98.24 [degF] Sourav Stinson [facility] 08-08-2021 14:31-0400 Diastolic blood pressure 97 mm[Hg] Sourav Stinson [facility] 08-08-2021 14:31-0400 Heart rate 94 /min Sourav Stinson [facility] 08-08-2021 14:31-0400 Respiratory rate 18 /min Sourav Stinson [facility] 08-08-2021 14:31-0400 SaO2% (BldA) [Mass fraction] 98 % Sourav Stinson [facility] 08-08-2021 14:31-0400 Systolic blood pressure 137 mm[Hg] Sourav Stinson [facility] Encounters Encounter Date Encounter Type Care Provider Facility Start: 02-19-2024 End: 02-19-2024 ambulatory CELESTE MORRO Not Available Start: 02-19-2024 End: 02-19-2024 flow sheet Celeste Morro DO Work Phone: [facility] Comment on above: 22 weeks gestation o f ; Second trimester ; Diabetes mellitus screening Start: 02-19-2024 End: 02-19-2024 Bamboo flowsheet Celeste Morro DO Work Phone: [facility] Start: 02-19-2024 End: 02-19-2024 Bamboo flowsheet Celeste Morro DO Work Phone: [facility] Start: 01-22-2024 End: 01-22-2024 ambulatory CELESTE MORRO [...] Available Start: 09-09-2023 End: 09-09-2023 ambulatory ENIO POWEREY Not Available Start: 08-12-2023 End: 08-12-2023 ambulatory JULIO TESS Not Available Start: 08-07-2023 End: 08-07-2023 ambulatory CELESTE MORRO Not Available Start: 07-11-2023 End: 07-11-2023 ambulatory MICHAEL HELMS Not Available Start: 06-19-2023 End: 06-19-2023 ambulatory CELESTE MORRO Not Available Start: 06-13-2023 End: 06-13-2023 ambulatory CELESTE MORRO Not Available Start: 03-05-2023 End: 03-05-2023 ambulatory CELESTE MORRO Not Available Start: 08-14-2022 Encounter for genera l adult medical examination without abnormal findings DR MICHAEL HELMS [facility] Start: 08-07-2022 End: 08-08-[address] MICHAEL [...] department patient visit Sourav Stinson [facility] Procedures Date Procedure Procedure Detail Performing Clinician Start: 02-19-2024 Urnls dip stick/tabl et rgnt non-auto w/o micrscp Celeste Morro DO Work Phone: Start: 01-22-2024 Urnls dip stick/tabl et rgnt non-auto w/o micrscp Celeste Morro DO Work Phone: Start: 01-27-[address] - local Sourav Stinson Lithotripsy Sourav Stinson Plan of Treatment Date Care Activity Detail Author Start: 03-18-2024 End: 03-18-2024 Patient encounter procedure 03/18/2024 3:30 PM EST Routine [facility] [address] [facility] [place] [id number] Celeste Hooker, DO [address] [place] [address] [facility] Start: 02-19-2024 End: 02-19-2024 Patient encounter procedure 02/19/2024 3:10 PM EST Routine [facility] [address] [place] [id number] Celeste Hooker, DO [address] [place] [address] [facility] Start: 02-19-2024 End: 02-18-2025 CBC panel - Blood by Automated count CBC Lab Routine Diabetes mellitus screening Expected: 02/19/2024 (Approximate), Expires: 02/18/2025 [facility] Work Phone: Comment on above: Expected: 02/19/2024 (Approximate), Expires: 02/18/2025 Start: 02-19-2024 End: 02-18-2025 Measurement of glucose 1 hour after glucose challenge for glucose tolerance test Glucose tolerance, 1 hour Lab Routine Diabetes mellitus screening Expected: 02/19/2024 (Approximate), Expires: 02/18/2025 [facility] Comment on above: Expected: 02/19/2024 (Approximate), Expires: 02/18/2025 Start: 01-29-2024 End: 01-29-2024 Professional / ancillary services management 01/29/2024 2:30 PM EDT Ancillary Procedure [facility] [address] [place] [address] [facility] Start: 12-08-2023 Influenza vaccination Influenza Vacc ine (#1) [facility] Start: 04-08-2022 DEPRESSION ASSESSMENT DEPRESSION ASS ESSMENT [facility] Start: 12-07-2021 Influenza vaccination INFLUENZA (#1) [facility] Start: 04-18-2021 COVID-19 VACCINE (2 - Booster for Vinny series) COVID-19 VACCINE (2 - Booster for Vinny series) [facility] Start: 02-03-2017 PAP TESTING PAP TESTING [facility] Start: 02-03-2015 Urine microalbumin profile DTAP,TDAP,TD (1 - Tdap) [facility] [facility] Start: 02-03-2014 HEPATITIS C SCREENING HEPATITIS C SC REENING [facility] Start: 02-03-2014 HIV SCREENING HIV SCREENING [facility] Start: 02-03-2010 PEDS TO ADULT TRANSI TION ANNUAL ASSESSMENT PEDS TO ADULT TRANSITION ANNUAL ASSESSMENT [facility] Start: 2008 PEDS TO ADULT TRANSI TION INITIAL DISCUSSION PEDS TO ADULT TRANSITION INITIAL DISCUSSION [facility] Start: 02-03-2007 HPV VACCINE (1 - 2-d ose series) HPV VACCINE (1 - 2-dose series) [facility] Start: 1996 HEPATITIS B (1 of 3 - 3-dose series) HEPATITIS B (1 of 3 - 3-dose series) [facility] Immunizations Immunization Date Immunization Notes Care Provider Fa hector 02-07-2020 influenza virus vacc ine, unspecified formulation Celeste Hooker DO Work Phone: [facility] Payers Date Payer Category Payer Private Health Insurance [facility] [id number] 2021 Private Health Insurance [id number] 1996 Unknown [id number] 2.16.840.1.189098.3.579.2. 593 1996 Unknown [id number] 2.16.840.1.343690.3.579.2. 593 1996 Unknown [id number] 2.16.840.1.071602.3.579.2. 593 1996 Unknown [id number] 2.16.840.1.628396.3.579.2. 593 1996 Unknown [id number] 2.16.840.1.834353.3.579.2. 593 1996 Unknown [id number] 2.16.840.1.792271.3.579.2. 1259 1996 Unknown [id number] 2.16.840.1.412650.3.579.2. 1259 1996 Unknown [id number] 2.16.840.1.976005.3.579.2. 1259 1996 Unknown [id number] 2.16.840.1.667728.3.579.2. 1259 1996 Unknown [id number] 2.16.840.1.171672.3.579.2. 1259 1996 Unknown [id number] 2.16.840.1.112856.3.579.2. 1259 1996 Unknown [id number] 2.16.840.1.559268.3.579.2. 1259 1996 Unknown [id number] 2.16.840.1.849275.3.579.2. 9 1996 Unknown [id number] 2.16.840.1.290611.3.579.2. 1259 1996 Unknown [id number] 2.16.840.1.991679.3.579.2. 1259 1996 Unknown [id number] 2.16.840.1.399390.3.579.2. 1259 1959 Private Health Insurance [id number] 1959 Unknown [id number] Social History Date Type Detail Facility Start: 10-11-2018 End: 07-11-2023 Tobacco smoking status Never smoked tobacco (finding) [facility] Start: 07-11-2023 Sex Assigned At Female F [facility] Start: 06-22-2022 End: 07-11-2023 Tobacco use and exposure Smokeless tobacco non-user [facility] Start: 1995 Sex Assigned At Not on file [facility] Start: 12-23-2023 Alcoholic beverage intake Lifetime non-drinker (finding) [facility] Start: 07-11-2023 History of Social function [facility] Start: 09-27-2023 [facility] Start: 1995 [facility] Start: 12-11-2023 Gender identity Identifies as female gender (finding) [facility] Start: 01-22-2024 End: 02-19-2024 Alcoholic beverage intake Ex-drinker (finding) [facility] Start: 01-22-2024 Alcohol Comment 1-2 a month socially [facility] Goals Date Patient Goal Desired Activity /State Personal health goal History of Present illness Narrative 02-19-2024 Rosi Gilliland LPN - 02/19/2024 3:10 PM EST Note Date & Type Note Facility 02-19-2024 History of Presen t illness Narrative Reason for Appointment: Patient ID: Brooklynn Kenyon is a 29 y.o. female who presents for No chief complaint on file. Patient presents today for Return OB appointment. MEDICATIONS Current Outpatient Medications Medication Instructions aspirin 81 mg, Daily magnesium oxide (MAG-OX) 400 mg, Oral, Daily ondansetron ODT (ZOFRAN-ODT) 4 mg, Oral, Every 6 hours PRN Vit-Fe Fumarate-FA ( 1 PLUS 1 PO) 1 each, Daily ALLERGIES Allergies Allergen Reactions Cefdinir Rash and Shortness of breath PROBLEMS Active Ambulatory Problems Diagnosis Date Noted Herpes labialis 04/15/2023 Generalized anxiety disorder (CMS/HCC) 07/11/2023 Dyslipidemia (CMS/HCC) 07/11/2023 Metabolic syndrome 07/11/2023 PCOS (polycystic ovarian syndrome) 07/11/2023 Vitamin D deficiency 07/11/2023 Morbid obesity due to excess calories ([facility]) 07/11/2023 Pharyngitis 07/11/2023 Resolved Ambulatory Problems Diagnosis Date Noted No Resolved Ambulatory Problems Past Medical History: Diagnosis Date Back pain Cold sore SONYA (generalized anxiety disorder) (CMS/HCC) History of migraine headaches Kidney stones Migraines ([facility]) Obesity HISTORY PAST MEDICAL HISTORY SOCIAL HISTORY Past Medical History: Diagnosis Date Back pain Cold sore Dyslipidemia (CMS/HCC) SONYA (generalized anxiety disorder) ([facility]) History of migraine headaches Kidney stones Migraines (CMS/HCC) Obesity PCOS (polycystic ovarian syndrome) Vitamin D [...] scalp DILATION AND CURETTAGE OF UTERUS 2020 [facility] KIDNEY STONE SURGERY 2016 Kidney Stones [...] nursing note reviewed. Exam conducted with a locomotive oiler present. Vitals: Estimated body mass index is 39.91 kg/m as calculated from the following: Height as of 08/12/23: 5' 7 . Weight as of this encounter: 254 lb 12.8 oz. BP: 126/80 Patient's last menstrual period was 06/30/2023. ASSESSMENT & PLAN ICD-10-CM 1. 22 weeks gestation of Z3A.22 POCT urinalysis dipstick manually resulted 2. Second trimester Z34.92 POCT urinalysis dipstick manually resulted 3. Diabetes mellitus screening Z13.1 CBC Glucose tolerance, 1 hour Patient presents today for a routine obstetrics appointment. Patient is currently 22w5d with a Estimated Date of Delivery: 06/19/24. Pt given glucola order with instructions. Pt to return in 4 weeks for scheduled OB appt. All pt questions and concerns addressed with pt in detail. Pt to meet with Nydia around 34 weeks. Documented by Rosi Gilliland LPN on behalf [...] Noted Herpes labialis 04/15/2023 Generalized anxiety disorder (CMS/HCC) 07/11/2023 Dyslipidemia (CMS/HCC) 07/11/2023 Metabolic syndrome 07/11/2023 PCOS (polycystic ovarian syndrome) 07/11/2023 Vitamin D deficiency 07/11/2023 Morbid obesity due to excess calories ([facility]) 07/11/2023 Pharyngitis 07/11/2023 Resolved Ambulatory Problems Diagnosis Date Noted No Resolved Ambulatory Problems Past Medical History: Diagnosis Date Back pain Cold sore SONYA (generalized anxiety disorder) ([facility]) History of migraine headaches Kidney stones Migraines ([facility]) Obesity HISTORY PAST MEDICAL HISTORY SOCIAL HISTORY Past Medical History: Diagnosis Date Back pain Cold sore Dyslipidemia ([facility]/HCC) SONYA (generalized anxiety disorder) ([facility]) History of migraine headaches Kidney stones Migraines ([facility]) Obesity PCOS (polycystic ovarian syndrome) Vitamin D [...] scalp DILATION AND CURETTAGE OF UTERUS 2020 [facility] KIDNEY STONE SURGERY 2016 Kidney Stones [...] nursing note reviewed. Exam conducted with a locomotive oiler present. Vitals: Estimated body mass index is [...] OPENED IN ERROR documented in this encounter [facility] Clinical Note 08-23-2021 Note Date & Type [...] CARMEN SOLORIO Date: 2021-08-23 14:56 [facility] Discharge instructions 08-08-2021 Note Date & Type Note Facility 08-08-2021 Hospital Discharg e instructions Patient Education 08/08/2021 15:44:15 Animal Bite, Adult, [id number] Animal Bite, Adult Animal bite wounds can [...] cannot use soap and water, use hand city letter carrier. ?Change your bandage as told by your [...] a bad smell. Medicines Take or apply [id number]-[id number] and prescription medicines only as told by [...] 03/25/2006 Document Revised: 03/20/2018 Document Reviewed: 10/03/2017 [employer] Patient Education 2020 BLOVES. Follow Up Care 08/08/2021 14:30:18 With:MICHAEL HELMS Address: [address] [place] [id number] Business (1) When:08/11/2021 15:01:11 [facility] Evaluation + Plan note Note Date & Type Note Facility Evaluation + Plan note No data available for this section [facility] Evaluation note Note Date & Type Note Facility Evaluation note Diagnosis OPENED IN ERROR- Primary To allow closing an encounter opened in error (used in SmartSet) documented in this encounter [facility] Evaluation note Note Date & Type Note Facility Evaluation note Diagnosis Pharyngitis, unspecified etiology- Primary Second trimester state, incidental 18 weeks gestation of documented in this encounter [facility] Healthcare Evaluation note Note Date & Type Note Facility Evaluation note Diagnosis Pharyngitis, unspecified etiology- Primary 22 weeks gestation of Second trimester state, incidental Diabetes mellitus screening Screening for diabetes mellitus documented in this encounter [facility] Summary [...] section and content) DATE CREATED AUTHOR 08/12/2021 [facility] DATE CREATED AUTHOR AUTHOR'S ORGANIZ ATION 09/12/2021 [facility] DATE CREATED AUTHOR AUTHOR'S ORGANIZ ATION 08/15/2022 [facility] DATE CREATED AUTHOR AUTHOR'S ORGANIZ ATION 11/26/2023 [facility] EPIC DATE CREATED AUTHOR AUTHOR'S ORGANIZ ATION 02/22/2024 [facility] EPIC Source Comments (unrecognize d section and content) In the event this informatio n is protected by the Federal Confidentiality of Alcohol and Drug Abuse Patient Records regulations: The Federal rules restrict any use of the information to criminally investigate or prosecute any alcohol or drug abuse patient.[facility] Reason for Visit (unrecogniz ed section and content) Reason Comments Opened In Error Reason Comments Routine Visit Care Teams (unrecognized sec tion and content) [facility] Relationship Specialty Start Date End Date Michael Helms [address] [place] [address] PCP - General Family Medicine 06/08/22 [facility] Relationship Specialty Start Date End Date Michael Helms MD [address] [place] [address] PCP - General Family Medicine 07/11/23 [facility] Relationship Specialty Start Date End Date Michael Helms MD [address] [place] [address] PCP - General Family Medicine 07/11/23 [facility] Relationship Specialty Start Date End Date Michael Helms MD [address] [place] [address] PCP - General Family [facility] 07/11/23 Weaver [facility] Relationship Specialty Start Date End Date Michael Helms MD [address] [place] [address] PCP - General Family Medicine 07/11/23 FOR [...] BE BASED ON THE PRIMARY CLINICAL RECORDS. [facility] [employer] [facility]. provides no warranty or guarantee of the accuracy or completeness of information in this document.
[2024-03-03 13:59] LABS: Basophils Percent Auto 0.2 % (0.2-2.0); Eosinophils Absolute Auto 0.1 10^3/uL (0.0-0.7); Eosinophils Percent Auto 0.7 % (0.9-7.0); Hematocrit 34.7 % (36.0-48.0); Hemoglobin 11.4 g/dL (12.0-16.0); Immature Granulocytes Abs Auto 0.07 10^3/uL (0.00-0.03); Immature Granulocytes Pct Auto 0.6 % (0.0-0.5); Lymphocytes Absolute Auto 2.1 10^3/uL (1.2-3.8); Lymphocytes Percent Auto 17.3 % (20.5-60.0); Mean Corpuscular HGB Conc 32.9 g/dL (29.9-35.2); Mean Corpuscular Volume 91.3 fL (81.0-99.0); Mean Platelet Volume 11.3 fL (9.5-13.5); Monocytes Absolute Auto 0.6 10^3/uL (0.3-0.8); Neutrophils Absolute Auto 9.2 10^3/uL (1.4-6.5); Neutrophils Percent Auto 76.2 % (43.0-75.0); Platelet Count 240 10^3/uL (150-450); Red Cell Distribution Width 13.6 % (11.0-15.0); White Blood Count 12.1 10^3/uL (4.0-11.0)
[2024-03-03 14:47] LABS: Glucose 1 Hour 144 mg/dL (<130)
== END 2024-03-03 12:21 | disposition home or self-care (01) ==
LOC: LAB 12:22
PROVIDERS: PCP Family Medicine; Visit Provider Obstetrics & Gynecology
DX: Z13.1 Encounter for screening for diabetes mellitus (principal)
CPT/HCPCS: 36415; 82950; 85025

== ENCOUNTER 2024-03-17 07:25 | Outpatient (OUT) | payer OTHER, SELFPAY ==
[2024-03-17 07:54] LABS: Glucose Fasting 80 mg/dL (<95)
[2024-03-17 09:10] LABS: Glucose 1 Hour 128 mg/dL (<180)
[2024-03-17 10:00] LABS: Glucose 2 Hour 110 mg/dL (<155)
[2024-03-17 11:06] LABS: Glucose 3 Hour 64 mg/dL (<140)
== END 2024-03-17 07:26 | disposition home or self-care (01) ==
LOC: LAB 07:27
PROVIDERS: PCP Family Medicine; Visit Provider Obstetrics & Gynecology
DX: R73.09 Other abnormal glucose (principal)
CPT/HCPCS: 36415; 82951; 82952

== ENCOUNTER 2024-04-06 14:29 | Outpatient (OUT) | payer OTHER, SELFPAY ==
--- NOTE | 2024-04-06 14:36 | US_ITS ---
[address] [address] Patient Name: BROOKLYNN GTZ MRN: [id number] date: 1995 Sex: F Assigned Patient Location: US Current Patient Location: US Accession/Order Number: [id number] Exam Date: 04/06/2024 14:40 Report Date: 04/06/2024 15:45 At the request of: CELESTE JACINTO Procedure: US OB incomplete anatomy EXAM: US OB incomplete anatomy HISTORY: Follow Up Ultrasound Of Anatomy COMPARISON: Ultrasound OB anatomy 01/29/2024 TECHNIQUE: Transabdominal ultrasound FINDINGS: Heart rate: 173 beats minute. Anatomy: Nose and lips, three-vessel cord GA: 29 weeks 3 days JUDE: 06/19/2024 US/US OB incomplete anatomy IMPRESSION: 1. Single live intrauterine . 2. Adequate visualization of the nose and lips/hard palate and the three-vessel cord. No appreciable abnormality. Electronically authenticated by: CARMEN SOLORIO Date: 04/06/2024 15:45
--- OUTSIDE RECORDS SUMMARY | 2024-04-06 14:50 | XMS_ITS | CCD ---
Author Organization [facility] Care Team Providers Care Bond Runner Name Role Phone MICHAEL HELMS Primary Care Physician Michael Helms Primary Care Provider SCOOTER, DR MICHAEL Camejo Admitting Unavailable SCOOTER, DR MICHAEL Camejo Attending Unavailable NADERELauren, DR MICHAEL Camejo Consulting Unavailable NADERELauren, DR MICHAEL Camejo Primary Care Unavailable SUMMER LEON Attending Unavailable SUMMER LEON Admitting Unavailable GRECHNY ., PEDRO BAINS Consulting Unavailabl e SCOOTER, DR MICHAEL Camejo Primary Care Unavailable GLENN PACHECO Consulting Unavailable MORRO ., DR ALONSO Attending Unavailable MORRO ., DR ALONSO Admitting Unavailable MORRO ., DR ALONSO Consulting Unavailable SCOOTER, DR MICHAEL Camejo Primary Care Unavailable SCOOTER, DR MICHAEL Camejo Admitting Unavailable NADERELauren, DR MICHAEL Camejo Attending Unavailable NADERER, DR MICHAEL Camejo Consulting Unavailable NADERER, DR MICHAEL Camejo Primary Care Unavailable NADERER, DR MICHAEL Camejo Admitting Unavailable IESHA TORRE Primary Care Unavailable ZIEBER, DR CARMEN Aguilar Consulting Unavailable SCOOTER, DR MICHAEL Camejo Attending Unavailable NADJERRY, DR MICHAEL Camejo Consulting Unavailable MORROCELESTE Attending Unavailable MORRO, CELESTE Attending Unavailable NADERER, MICHAEL Attending Unavailable MORRO, CELESTE Attending Unavailable MORRO, CELESTE Attending Unavailable JULIO PULIDO Attending Unavailable ENIO CIFUENTES Attending Unavailable MORRO, CELESTE Attending Unavailable Michael Helms MD Primary Care Provider CELESTE HOOKER Attending Unavailable MORRO, CELESTE Attending Unavailable MORRO, CELESTE Attending Unavailable MORRO, CELESTE Attending Unavailable Allergies Allergy Classification Reported Allergen(s) [...] # 28 tab(s), Refills(s) 0, Pharmacy: [facility]/pharmacy #[id number], 168, cm, 08/08/21 14:35:00 EDT, Height/Length [...] current use of drug therapy; 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] Episodic Other aftercare (1 source) Other nursing home (current) drug therapy; Translations: [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] Onset: 06-18-2022 Episodic Other [...] UA Negative Negative - 4(70) +++ mg/dL [facility] Blood, UA Negative Negative - 50 Tres/mcL [facility] Clarity, UA Clear [facility] Color, UA Yellow [facility] Glucose, UA Negative Negative - 2000(110) ++++ mg/dL [facility] Interpretation and review of laboratory results Abnormal [facility] Ketones, UA Positive Negative - 160(16) ++++ mg/dL [facility] Comment on above: 15 Leukocytes, UA Negative Negative - 500+++ Abigail/mcL [facility] Nitrite, UA Negative Negative - Positive [facility] pH, UA 6 5 - 9 [facility] Protein, UA Negative Negative - 2000(20) ++++ mg/dL [facility] Spec Grav, UA 1.03 1 - 1.03 [facility] Urobilinogen, UA 0.2 0.2 - 12 mg/dL [facility] CBC AUTO DIFFon 08-07-2022 BASO # 0.1 103/ul Normal 0.0-0.1 [facility] Comment on above: Performed By: #### C ####[facility] [address] [place] [id number]. Rasta Gatica Basophils/100 WBC (Bld) 0.4 % Normal 0.2-2.0 [facility] Comment on above: Performed By: #### C BC ####[facility] [address] [place] [id number]. Rasta Gatica EO # 0.2 103/ul Normal 0.0-0.7 [facility] Comment on above: Performed By: #### C BC ####[facility] [address]fs[address] [place], [place] [id number]. Rasta Gatica Eosinophils/100 WBC (Bld) 1.3 % Normal 0.9-7.0 [facility] Comment on above: Performed By: #### C BC ####[facility] [address]we[address] [place], [place] [address]Dr. Rasta Gatica Erythrocyte distribution width (RBC) [Ratio] 12.7 % Normal 11.0-15.0 [facility] Comment on above: Performed By: #### C BC ####[facility] [address] [place], [place] [id number]. Rasta Gatica Hematocrit (Bld) [Volume fraction] 40.3 % Normal 36.0-48.0 [facility] Comment on above: Performed By: #### C BC ####[facility] L[address] [place], [place] [address]Dr. Rasta Gatica Hemoglobin (Bld) [Mass/Vol] 13.1 g/dL Normal 12.0-16.0 [facility] Comment on above: Performed By: #### C BC ####[facility] [address] [place], [place] [address]Dr. Rasta Gatica IG # 0.03 10e3/ul Normal 0.00-0.03 [facility] Comment on above: Performed By: #### C BC ####[facility] [address] [place], [place] [address]Dr. Rasta Gatica IG % 0.3 % Normal 0.0-0.5 [facility] Comment on above: Performed By: #### C BC ####[facility] [address]kpsy[address]wtvb[address] [place] [id number]. Rasta Gatica LYMPH # 2.9 103/ul Normal 1.2-3.8 [facility] Comment on above: Performed By: #### C BC ####[facility] [address]yfb[address]ix[address] [place] [id number]. Rasta Gatica Lymphocytes/100 WBC (Bld) 25.5 % Normal 20.5-60.0 [facility] Comment on above: Performed By: #### C BC ####[facility] R[address]qc[address] [place] [id number]. Rasta Gatica MANUAL DIFF REQ NO Normal [facility] Comment on above: Performed By: #### C BC ####[facility] Adorbz[address]tr[address] [place] [id number]. Rasta Gatica MCH (RBC) [Entitic mass] 29.1 pg Normal 26.7-34.0 [facility] Comment on above: Performed By: #### C BC ####[facility] [address]wk[address] [place] [id number]. Rasta Gatica MCHC (RBC) [Mass/Vol] 32.5 g/dL Normal 29.9-35.2 [facility] Comment on above: Performed By: #### C BC ####[facility] [address]hrq[address] [place] [id number]. Rasta Gatica MCV (RBC) [Entitic vol] 89.6 fL Normal 81.0-99.0 [facility] Comment on above: Performed By: #### C BC ####[facility] [address]xf[address] [place] [id number]. Rasta Gatica MONO # 0.8 103/ul Normal 0.3-0.8 [facility] Comment on above: Performed By: #### C BC ####[facility] [address]ftsb[address] [place] [id number]. Rasta Gatica Monocytes/100 WBC (Bld) 7.2 % Normal 1.7-12.0 [facility] Comment on above: Performed By: #### C BC ####[facility] [address]nx[address] [place], [place] [address]Nq. Karrieroopa Gatica NEUT # 7.3 103/ul Critically high 1.4-6.5 [facility] Comment on above: Performed By: #### C BC ####[facility] [address] [place], [place] [address]Tt. Rasta Gatica Neutrophils/100 WBC (Bld) 65.3 % Normal 43.0-75.0 [facility] Comment on above: Performed By: #### C BC ####[facility] [address] [place] [id number]. Rasta Gatica Platelet mean volume (Bld) [Entitic vol] 10.7 fL Normal 9.5-13.5 [facility] Comment on above: Performed By: #### C BC ####[facility] [address]wr[address] [place] [id number]. Rasta Gatica PLT 279 103/ul Normal 150-450 [facility] Comment on above: Performed By: #### C BC ####[facility] [address] [place] [id number]. Rasta Gatica RBC 4.50 106/ul Normal 4.20-5.40 [facility] Comment on above: Performed By: #### C BC ####[facility] [address]ug[address]if[address] [place] [id number]. Rasta Gatica WBC 11.2 103/ul Critically high 4.0-11.0 [facility] Comment on above: Performed By: #### C BC ####[facility] [address] [place] [id number] Gatica GLYCOHEMOGLOBIN A1Con 2022 ADA RECOMMENDATION SEE BELOW Normal [facility] Comment on above: Result Comment: ADA RECOMMENDED LIMIT 4.0 - 6.0 ADA THERAPEUTIC TARGET < 7.0 ACTION SUGGESTED > 7.0 Performed By: #### A 1C #### [facility] [address] [place], [place] [address] Dr. Rasta Gatica Glucose [Mass/Vol] 103 mg/dL Normal [facility] Comment on above: Performed By: #### A 1C #### [facility] [address] [place] [address] [address] Rasta Gatica HbA1c (Bld) [Mass fraction] 5.2 % Normal 4.5-6.2 [facility] Comment on above: Performed By: #### A 1C #### [facility] [address] [place] [address] [address] Rasta Gatica LIPID PROFILEon 08-07-2022 CHOL-HDL RATIO NORM SEE BELOW Normal [facility] Comment on above: Result Comment: 3.3 - 4.4 LOW RISK 4.4 - 7.1 AVERAGE RISK 7.1 - 11.0 MODERATE RISK >11.0 HIGH RISK Performed By: #### L IPID, BMP, TSH, LIVER #### [facility] [address] [place] [address] [address] Rasta Gatica Cholesterol [Mass/Vol] 234 mg/dL Critically high <=200 [facility] Comment on above: Performed By: #### L IPID, BMP, TSH, LIVER #### [facility] [address] [place] [address] [address] Rasta Gatica Cholesterol in HDL [Mass/Vol] 67 mg/dL Critically high 40-60 [facility] Comment on above: Performed By: #### L IPID, BMP, TSH, LIVER #### [facility] [address] [place] [address] [address] Rasta Gatica Cholesterol in LDL [Mass/Vol] 151.8 mg/dL Normal [facility] Comment on above: Performed By: #### L IPID, BMP, TSH, LIVER #### [facility] [address] [place] [address] [address] Rasta Gatica Cholesterol.total/C holesterol in HDL [Mass ratio] 3.5 {ratio} Normal [facility] Comment on above: Performed By: #### L IPID, BMP, TSH, LIVER #### [facility] [address] [address] [address] Rasta Gatica HDL NORMAL > or = 60 mg/dl - LO W CARDIOVASCULAR RISK <40 mg/dl - HIGH CARDIOVASCULAR RISK Normal [facility] Comment on above: Performed By: #### L IPID, BMP, TSH, LIVER #### [facility] [address] [place] [address] [address] Rasta Gatica LDL CALC NORMAL SEE BELOW Normal [facility] Comment on above: Result Comment: <100 mg/dl OPTIMAL 100 - 129 mg/dl NEAR OR ABOVE OPTIMAL 130 - 159 mg/dl BORDERLINE HIGH 160 - 189 mg/dl HIGH >190 mg/dl VERY HIGH Performed By: #### L IPID, BMP, TSH, LIVER #### [facility] [address] [address] [address] Rasta Gatica Triglyceride [Mass/Vol] 76 mg/dL Normal <=150 [facility] Comment on above: Performed By: #### L IPID, BMP, TSH, LIVER #### [facility] [address] [place] [address] [address] Rasta Gatica VLDL CALC 15.2 mg/dL Normal [facility] Comment on above: Performed By: #### L IPID, BMP, TSH, LIVER #### [facility] [address] [place] [address] Dr. Rasta Gatica LIVER PROFILEon 08-07-2022 Albumin [Mass/Vol] 3.8 g/dL Normal 3.4-5.0 [facility] Comment on above: Performed By: #### L IPID, BMP, TSH, LIVER #### [facility] [address] [address] [address] Rasta Gatica Albumin/Globulin [Mass ratio] 1.0 {ratio} Normal [facility] Comment on above: Performed By: #### L IPID, BMP, TSH, LIVER #### [facility] [address] [address] [address] Rasta Gatica ALP [Catalytic activity/Vol] 98 U/L Normal 46-116 [facility] Comment on above: Performed By: #### L IPID, BMP, TSH, LIVER #### [facility] [address] [address] [address] Rasta Gatica ALT [Catalytic activity/Vol] 24 U/L Normal 14-59 [facility] Comment on above: Performed By: #### L IPID, BMP, TSH, LIVER #### [facility] [address] [place] [address] Dr. Rasta Gatica AST [Catalytic activity/Vol] 19 U/L Normal 15-37 [facility] Comment on above: Performed By: #### L IPID, BMP, TSH, LIVER #### [facility] [address] [place] [address] Dr. Rasta Gatica BILI, CONJUGATED 0.1 mg/dL Normal 0.0-0.2 [facility] Comment on above: Performed By: #### L IPID, BMP, TSH, LIVER #### [facility] [address] [place] [address] Dr. Rasta Gatica Bilirubin [Mass/Vol] 0.4 mg/dL Normal 0.2-1.0 [facility] Comment on above: Performed By: #### L IPID, BMP, TSH, LIVER #### [facility] [address] [place] [address] Dr. Rasta Gatica Globulin (S) [Mass/Vol] 3.8 g/dL Normal [facility] Comment on above: Performed By: #### L IPID, BMP, TSH, LIVER #### [facility] [address] [place] [address] Dr. Rasta Gatica Protein [Mass/Vol] 7.6 g/dL Normal 6.4-8.2 [facility] Comment on above: Performed By: #### L IPID, BMP, TSH, LIVER #### [facility] [address] [place] [address] Dr. Rasta Gatica PROF CHEM 8 (BAS METB)on Anion gap [Moles/Vol] 9.6 mmol/L Normal [facility] Comment on above: Performed By: #### L IPID, BMP, TSH, LIVER #### [facility] [address] [place] [address] Dr. Rasta Gatica Calcium [Mass/Vol] 9.8 mg/dL Normal 8.5-10.1 [facility] Comment on above: Performed By: #### L IPID, BMP, TSH, LIVER #### [facility] [address] [address] [address] Rasta Gatica Chloride [Moles/Vol] 106 mmol/L Normal 98-107 [facility] Comment on above: Performed By: #### L IPID, BMP, TSH, LIVER #### [facility] [address] [address] [address] Rasta Gatica CO2 [Moles/Vol] 27.0 mmol/L Normal 21.0-32.0 [facility] Comment on above: Performed By: #### L IPID, BMP, TSH, LIVER #### [facility] [address] [address] [address] Rasta Gatica Creatinine [Mass/Vol] 0.66 mg/dL Normal 0.55-1.02 [facility] Comment on above: Performed By: #### L IPID, BMP, TSH, LIVER #### [facility] [address] [place] [address] [address] Rasta Gatica EGFR-AF AUSTRIAN >60 Normal >=60 [facility] Comment on above: Performed By: #### L IPID, BMP, TSH, LIVER #### [facility] [address] [place] [address] [address] Rasta Gatica EGFR-NON AF AUSTRIAN >60 Normal >=60 [facility] Comment on above: Performed By: #### L IPID, BMP, TSH, LIVER #### [facility] [address] [place] [address] [address] Rasta Gatica Glucose [Mass/Vol] 88 mg/dL Normal 74-106 [facility] Comment on above: Performed By: #### L IPID, BMP, TSH, LIVER #### [facility] [address] [address] [address] Rasta Gatica Potassium [Moles/Vol] 4.6 mmol/L Normal 3.5-5.1 [facility] Comment on above: Performed By: #### L IPID, BMP, TSH, LIVER #### [facility] [address] [address] [address] Rasta Gatica Sodium [Moles/Vol] 138 mmol/L Normal 136-145 [facility] Comment on above: Performed By: #### L IPID, BMP, TSH, LIVER #### [facility] [address] [place] [id number] [address] Rasta Gatica Urea nitrogen [Mass/Vol] 10.0 mg/dL Normal 7.0-18.0 [facility] Comment on above: Performed By: #### L IPID, BMP, TSH, LIVER #### [facility] [address] [place] [address] [address] Rasta Gatica Urea nitrogen/Creatinine [Mass ratio] 15.2 mg/mg Normal [facility] Comment on above: Performed By: #### L IPID, BMP, TSH, LIVER #### [facility] [address] [place] [address] [address] Rasta Gatica TSHon 08-07-2022 TSH 1.521 uIU/mL Normal 0.358-3.740 [facility] Comment on above: Performed By: #### L IPID, BMP, TSH, LIVER #### [facility] [address] [place] [address] [address] HEAD WO CONon [...] by: GLENN PACHECO Date: 2022-06-14 20:18 Normal [facility] PAP ACOG PANEL 2: 21 to 29on 02-08-2022 . . Normal [facility] Comment on above: Performed By: #### 4 [id number] #### [facility] [address] [place] [address] [address] Rasta Gatica Age Gdln ACOG Testing 21-29 Normal [facility] Comment on above: Performed By: #### 4 [id number] #### [facility] [address] [place] [address] Dr. Rasta Gatica DIAGNOSIS: Comment Normal [facility] Comment on above: Result Comment: NEGA TIVE FOR INTRAEPITHELIAL LESION OR MALIGNANCY. Performed By: #### [id number] #### [facility] [address] [place] [address] Dr. Rasta Gatica Methodology: Comment Normal [facility] Comment on above: Result Comment: This liquid based ThinPrep(R) pap test was screened with the use of an image guided system. Performed By: #### 4 [id number] #### [facility] [address] [place] [address] Dr. Rasta Gatica Note: Comment Normal [facility] Comment on above: Result Comment: The Pap smear is a screening test designed to aid in the detection of premalignant and malignant conditions of the uterine cervix. It is not a diagnostic procedure and should not be used as the sole means of detecting cervical cancer. Both false-positive and false-negative reports do occur. . Performed By: #### 4 [id number] #### [facility] [address] [place] [address] Dr. Rasta Gatica Performed by: Comment Normal [facility] Comment on above: Result Comment: Darline Terry, Car Cleaner (ASCP) Performed By: #### 4 [id number] #### [facility] [address] [place] [address] Dr. Rasta Gatica Reflex Criteria: Comment Normal [facility] Comment on above: Result Comment: The HPV DNA reflex criteria were not met with this specimen result therefore, no HPV testing was performed. . Performed By: #### 4 [id number] #### [facility] [address] [place] [address] Dr. Rasta Gatica Specimen adequacy: Comment Normal [facility] Comment on above: Result Comment: Sati sfactory for evaluation. Endocervical and/or squamous metaplastic cells (endocervical component) are present. Performed By: #### 4 [id number] #### [facility] [address] [place] [id number] Rasta Gatica CBC AUTO DIFFon 02-02-2022 BASO # 0.0 103/ul Normal 0.0-0.1 [facility] Comment on above: Performed By: #### C BC ####[facility] [address] [place] [id number]. Rasta Gatica Basophils/100 WBC (Bld) 0.4 % Normal 0.2-2.0 [facility] Comment on above: Performed By: #### C BC ####[facility] [address] [place] [address]DrHany Gatica EO # 0.1 103/ul Normal 0.0-0.7 [facility] Comment on above: Performed By: #### C BC ####[facility] [address] [place], [place] [address]Dr. Rasta Gatica Eosinophils/100 WBC (Bld) 1.3 % Normal 0.9-7.0 [facility] Comment on above: Performed By: #### C BC ####[facility] [address] [place], [place] [address]Dr. Rasta Gatica Erythrocyte distribution width (RBC) [Ratio] 13.2 % Normal 11.0-15.0 [facility] Comment on above: Performed By: #### C BC ####[facility] [address] [place], [place] [address]Dr. Rasta Gatica Hematocrit (Bld) [Volume fraction] 40.8 % Normal 36.0-48.0 [facility] Comment on above: Performed By: #### C BC ####[facility] [address] [place], [place] [address]Dr. Rasta Gatica Hemoglobin (Bld) [Mass/Vol] 13.2 g/dL Normal 12.0-16.0 [facility] Comment on above: Performed By: #### C BC ####[facility] [address] [place], [place] [address]DrHany Gatica IG # 0.03 10e3/ul Normal 0.00-0.03 [facility] Comment on above: Performed By: #### C BC ####[facility] [address] [place] [id number]. Rasta Gatica IG % 0.3 % Normal 0.0-0.5 [facility] Comment on above: Performed By: #### C BC ####[facility] [address] [place] [id number]. Rasta Gatica LYMPH # 2.8 103/ul Normal 1.2-3.8 [facility] Comment on above: Performed By: #### C BC ####[facility] [address] [place] [id number]. Rasta En Lymphocytes/100 WBC (Bld) 29.1 % Normal 20.5-60.0 [facility] Comment on above: Performed By: #### C BC ####[facility] [address] [place] [address]Dr. Rasta Gatica MANUAL DIFF REQ NO Normal [facility] Comment on above: Performed By: #### C BC ####[facility] [address]qsv[address] [place] [id number]. Rasta Gatica MCH (RBC) [Entitic mass] 29.1 pg Normal 26.7-34.0 [facility] Comment on above: Performed By: #### C BC ####[facility] [address]cp[address] [place] [id number]. Rasta Gatica MCHC (RBC) [Mass/Vol] 32.4 g/dL Normal 29.9-35.2 [facility] Comment on above: Performed By: #### C BC ####[facility] [address] [place], [place] [address]Dr. Rasta Gatica MCV (RBC) [Entitic vol] 90.1 fL Normal 81.0-99.0 [facility] Comment on above: Performed By: #### C BC ####[facility] [address] [place] [id number]. Rasta En MONO # 0.6 103/ul Normal 0.3-0.8 [facility] Comment on above: Performed By: #### C BC ####[facility] [address]uw[address] [place] [id number]. Rasta Gatica Monocytes/100 WBC (Bld) 6.6 % Normal 1.7-12.0 [facility] Comment on above: Performed By: #### C BC ####[facility] [address]pos[address] [place] [id number]. Rasta Gatica NEUT # 6.0 103/ul Normal 1.4-6.5 [facility] Comment on above: Performed By: #### C BC ####[facility] [address]rih[address] [place] [id number]. Rasta Gatica Neutrophils/100 WBC (Bld) 62.3 % Normal 43.0-75.0 [facility] Comment on above: Performed By: #### C BC ####[facility] [address] [place] [id number]. Rasta Gatica Platelet mean volume (Bld) [Entitic vol] 11.4 fL Normal 9.5-13.5 [facility] Comment on above: Performed By: #### C BC ####[facility] [address]urob[address] [place] [id number]. Rasta Gatica PLT 264 103/ul Normal 150-450 [facility] Comment on above: Performed By: #### C BC ####[facility] [address]aru[address] [place] [id number]. Rasta Gatica RBC 4.53 106/ul Normal 4.20-5.40 [facility] Comment on above: Performed By: #### C BC ####[facility] [address]lnqv[address] [place] [id number]. Rasta aGtica WBC 9.7 103/ul Normal 4.0-11.0 [facility] Comment on above: Performed By: #### C BC ####[facility] [address] [place], [place] [address]Dr. Rasta Gatica GLYCOHEMOGLOBIN A1Con 2021 ADA RECOMMENDATION SEE BELOW Normal [facility] Comment on above: Result Comment: ADA RECOMMENDED LIMIT 4.0 - 6.0 ADA THERAPEUTIC TARGET < 7.0 ACTION SUGGESTED > 7.0 Performed By: #### A 1C #### [facility] [address] [place] [address] [address] Rasta Gatica Glucose [Mass/Vol] 120 mg/dL Normal [facility] Comment on above: Performed By: #### A 1C #### [facility] [address] [place], [place] [address] Dr. Rasta Gatica HbA1c (Bld) [Mass fraction] 5.8 % Normal 4.5-6.2 [facility] Comment on above: Performed By: #### A 1C #### [facility] [address] [place] [address] [address] Rasta Gatica LIPID PROFILEon 02-02-2022 CHOL-HDL RATIO NORM SEE BELOW Normal [facility] Comment on above: Result Comment: 3.3 - 4.4 LOW RISK 4.4 - 7.1 AVERAGE RISK 7.1 - 11.0 MODERATE RISK >11.0 HIGH RISK Performed By: #### L IVER, TSH, BMP, LIPID ####[facility] [address] [place] [id number]. Rasta Gatica Cholesterol [Mass/Vol] 210 mg/dL Critically high <=200 [facility] Comment on above: Performed By: #### L IVER, TSH, BMP, LIPID ####[facility] [address]nuxys[address]yh[address] [place], [place] [address]DaHany Gatica Cholesterol in HDL [Mass/Vol] 61 mg/dL Critically high 40-60 [facility] Comment on above: Performed By: #### L IVER, TSH, BMP, LIPID ####[facility] [address]woqonf[address] [place], [place] [address]LhHany Gatica Cholesterol in LDL [Mass/Vol] 114.4 mg/dL Normal [facility] Comment on above: Performed By: #### L IVER, TSH, BMP, LIPID ####[facility] Bdxbfvhylk0058 [place], [place] [address]KgHany Gatica Cholesterol.total/C holesterol in HDL [Mass ratio] 3.4 {ratio} Normal [facility] Comment on above: Performed By: #### L IVER, TSH, BMP, LIPID ####[facility] [address]hx[address] [place] [id number]. Rasta Gatica HDL NORMAL > or = 60 mg/dl - LO W CARDIOVASCULAR RISK <40 mg/dl - HIGH CARDIOVASCULAR RISK Normal [facility] Comment on above: Performed By: #### L IVER, TSH, BMP, LIPID ####[facility] [address]ol[address]scmw[address] [place] [address]Dr. Rasta Gatica LDL CALC NORMAL SEE BELOW Normal [facility] Comment on above: Result Comment: <100 mg/dl OPTIMAL 100 - 129 mg/dl NEAR OR ABOVE OPTIMAL 130 - 159 mg/dl BORDERLINE HIGH 160 - 189 mg/dl HIGH >190 mg/dl VERY HIGH Performed By: #### L IVER, TSH, BMP, LIPID ####[facility] Rj[address]ogsndc[address] [place] [address]Dr. Rasta Gatica Triglyceride [Mass/Vol] 173 mg/dL Critically high <=150 [facility] Comment on above: Performed By: #### L IVER, TSH, BMP, LIPID ####[facility] Yvevrsetrb[address] [place] [address]Dr. Rasta Gatica VLDL CALC 34.6 mg/dL Normal [facility] Comment on above: Performed By: #### L IVER, TSH, BMP, LIPID ####[facility] Rrrhgiaeti[address] [place] [address]Dr. Rasat Gatica LIVER PROFILEon 02-02-2022 Albumin [Mass/Vol] 3.5 g/dL Normal 3.4-5.0 [facility] Comment on above: Performed By: #### L IVER, TSH, BMP, LIPID ####[facility] Hxctmrhuoo5[address] [place] [address]Dr. Rasta Gatica Albumin/Globulin [Mass ratio] 1.1 {ratio} Normal [facility] Comment on above: Performed By: #### L IVER, TSH, BMP, LIPID ####[facility] Xznwzrczmc[address] [place] [address]Dr. Rasta Gatica ALP [Catalytic activity/Vol] 71 U/L Normal 46-116 [facility] Comment on above: Performed By: #### L IVER, TSH, BMP, LIPID ####[facility] Zfggdinmzg0309 [place] [address]Dr. Rasta Gatica ALT [Catalytic activity/Vol] 15 U/L Normal 14-59 [facility] Comment on above: Performed By: #### L IVER, TSH, BMP, LIPID ####[facility] Soxzxmcvqf9358 [place] [address]Dr. Rasta Gatica AST [Catalytic activity/Vol] 8 U/L Critically low 15-37 [facility] Comment on above: Performed By: #### L IVER, TSH, BMP, LIPID ####[facility] Ztpstjzuai47[address] [place] [address]Dr. Rasta Gatica BILI, CONJUGATED <0.1 Normal 0.0-0.2 [facility] Comment on above: Performed By: #### L IVER, TSH, BMP, LIPID ####[facility] [address] [place], [place] [address]Dr. Rasta Gatica Bilirubin [Mass/Vol] 0.1 mg/dL Critically low 0.2-1.0 [facility] Comment on above: Performed By: #### L IVER, TSH, BMP, LIPID ####[facility] Zifawxohsn8[address] [place] [address]Dr. Rasta Gatica Globulin (S) [Mass/Vol] 3.3 g/dL Normal [facility] Comment on above: Performed By: #### L IVER, TSH, BMP, LIPID ####[facility] Klifewgifa[address] [place] [address]Dr. Rasta Gatica Protein [Mass/Vol] 6.8 g/dL Normal 6.4-8.2 [facility] Comment on above: Performed By: #### L IVER, TSH, BMP, LIPID ####[facility] Npcidgxvgm[address] [place] [address]Dr. Rasta Gatica PROF CHEM 8 (BAS METB)on Anion gap [Moles/Vol] 10.6 mmol/L Normal [facility] Comment on above: Performed By: #### L IVER, TSH, BMP, LIPID ####[facility] Ancotshnsg[address] [place] [address]Dr. Rasta Gatica Calcium [Mass/Vol] 9.2 mg/dL Normal 8.5-10.1 [facility] Comment on above: Performed By: #### L IVER, TSH, BMP, LIPID ####[facility] Ztmqbsjsuv[address] [place] [address]Dr. Rasta Gatica Chloride [Moles/Vol] 106 mmol/L Normal 98-107 [facility] Comment on above: Performed By: #### L IVER, TSH, BMP, LIPID ####[facility] Zozefvwqly[address] [place] [address]Dr. Rasta Gatica CO2 [Moles/Vol] 29.3 mmol/L Normal 21.0-32.0 [facility] Comment on above: Performed By: #### L IVER, TSH, BMP, LIPID ####[facility] Hmkyfkupus3[address] [place] [address]Dr. Rasta Gatica Creatinine [Mass/Vol] 0.63 mg/dL Normal 0.55-1.02 [facility] Comment on above: Performed By: #### L IVER, TSH, BMP, LIPID ####[facility] [address]hrw[address] [place], [place] [address]Dr. Rasta Gatica EGFR-AF AUSTRIAN >60 Normal >=60 [facility] Comment on above: Performed By: #### L IVER, TSH, BMP, LIPID ####[facility] Gyehlnblfr[address] [place] [address]Dr. Rasta Gatica EGFR-NON AF AUSTRIAN >60 Normal >=60 [facility] Comment on above: Performed By: #### L IVER, TSH, BMP, LIPID ####[facility] Xt[address] [place], [place] [address]Dr. Rasta Gatica Glucose [Mass/Vol] 82 mg/dL Normal 74-106 [facility] Comment on above: Performed By: #### L IVER, TSH, BMP, LIPID ####[facility] G[address]ysneveal[address] [place] [id number]. Rasta Gatica Potassium [Moles/Vol] 3.9 mmol/L Normal 3.5-5.1 [facility] Comment on above: Performed By: #### L IVER, TSH, BMP, LIPID ####[facility] Tyydetdzkv56[address] [place] [id number]. Rasta Gatica Sodium [Moles/Vol] 142 mmol/L Normal 136-145 [facility] Comment on above: Performed By: #### L IVER, TSH, BMP, LIPID ####[facility] P[address]urwttniz[address] [place] [id number]. Rasta Gatica Urea nitrogen [Mass/Vol] 11.0 mg/dL Normal 7.0-18.0 [facility] Comment on above: Performed By: #### L IVER, TSH, BMP, LIPID ####[facility] [address]jqkfgafz[address] [place] [address]Dr. Rasta Gatica Urea nitrogen/Creatinine [Mass ratio] 17.5 mg/mg Normal [facility] Comment on above: Performed By: #### L IVER, TSH, BMP, LIPID ####[facility] Atpcjsofsb[address] [place] [address]Dr. Rasta Gatica TSHon 02-02-2022 TSH 1.214 uIU/mL Normal 0.358-3.740 [facility] Comment on above: Performed By: #### L IVER, TSH, BMP, LIPID ####[facility] Gfarwrbdbb9943 [place] [id number]. Rasta Gatica VITAMIN D 25 OHon 02-02-2022 VIT D 25-OH 28.2 ng/mL Normal [facility] Comment on above: Performed By: #### V ITAD #### [facility] [address] [place] [address] Dr. Rasta Gatica VIT D RANGES SEE BELOW Normal [facility] Comment on above: Result Comment: <20 ng/mL Vit D deficient 20 - <30 ng/mL Vit D insufficient 30 - 100 ng/mL Vit D sufficient >100 ng/mL Potential Toxicity Performed By: #### V ITAD #### [facility] [address] [place] [id number] Rasta Gatica MRI Hand w/o Righton [...] by Nic Duncan on 09/12/2021 1107 Normal [facility] [employer] ED Note-Physicianon 08-12-19 22 ED Note-Physician Basic [...] # 28 tab(s), Refills(s) 0, Pharmacy: [facility]/pharmacy #[id number], 168, cm, 08/08/21 14:35:00 EDT, Height/Length [...] concerns. Medicat (more content not included)... Normal [facility] Comment on above: Result Comment: Elec tronically Signed By: Isi Stoll PA-C\.br\Date and Time Signed: 08/08/21 18:06 EDT\.br\Electronically Co-Signed By: Sourav Stinson DO\.daphne\Date and Time Co-Signed: 08/11/21 07:27 EDT Animal Bite Investigationon 08-08-2021 Animal Bite Investigation [id number]# 1.00CD:127 [facility] Coding Summary.on 08-08-2021 Coding Summary. CD:[id number] G h0bWw+PGhlYWQ+NU3QWXR pO78rlGUuvV7YL2yUDU9O OHWNCMQGXX1PXL2usRR6Y BemU8HpyeAy IkcpgRWnUW11WQv4IIZ8s CvhNFnuhJ2xkZAvA5v9Pq AjQJ00fG30BTmfMHKdFaG 3LjZpbjsgbWFy S1mxCcEhkRVhVqo+PHRhY mxlIHdpZHRoPScxMDAlJy YtyRlsBD8yAo7aFQZbUKZ vbGxhcHNlOiBj x8rlPLMdPRuxRK8odBtsQ 1ToiLV6CLUhu2p7Oy76qW I+TOVvSVJ3xQduRRclv24 4DbNnu0lqEIV3 jAFgAAaqNER6D49vj1J4Z YCiFHFfMON0mNX8gT3ppJ iboscgL4QpzPKaRpJ5IOA 9bWRuxN2nkErf cnmvjP8kJjt+U73ADZ6IO YDHRE0QBuc9D9KeVuegwQ I+YN71GZXxOM20sJZqaBT kc2ujcWp3YuBb QHKzQBB8yXkjTZudy5KiY DArR27axQKmy5W8UNUydZ qxrKVeUrLoeWS7qF6sRJw xqgezp8komakx Fskfz8hjvv65rA44I69bR LvcIXCmGGS9LVDdCMUonM cuvp2yzB6hQh5+MOxwa6v cv3nltIa3LsGn MDYpspUxtWdwJEH2b9KdV v01H6AfuJxuf2EwPxb7lz 91dOZbm5Y1zIW5SYxaHZU gvB2rPQdtPtB6 SHBvNpLpqV36zQNwKIoiS w1jcFtljRgaKS3mPUPxew crBANgxJ4uACYmcPIkiQe xTL2vFVJndhlv j196GuEpQRI1PFBxvIBrZ 8GgjW1iDiOxCKWdVEFuO4 QzpSBpZWliN717NFjdCfG 5YKZtyhByK7Ey MJOcpZdrUrD0e8O3Zz3Fe 7AnxbzbKBO8YFiwNIU9Cv QtXeTuUuB0X0BtJzm5GGZ tdSeoBI1tG9Oa NRJiduqcjzlmzIZ3SLDhI UIhgS66eUGkEFmmNy6hk1 D3h066DYGnHIIeaG15Yg6 udDogMTBwdCBU gR4aeftpq7yugdvxBjIwN SYlKPt3IBw4BHDcrOhfUi IoIMM3BkF0BUX6zUJvgB6 tpQwjebsotY4v Oyc+D89vjC5eXYU9JDZ3m filTMSfolBwMV20LL27R5 RyPjwvdGFibGU+PGRpdiB hhToqHI8nQqSi z2tmi3WrHTvxF3ZhDNUqT IeiAhc7BKGnAJP4cXK4dW 6bHIBzWHnum8S6lVN9P5C njzXfvh2zz8vj MNXqWKppW76cpRHnu5W2I ADwiWP0UGWxsSznBeYhxX 93Oyc+YPLqeMfkz6TrWyk bz0zjc7pcpHb1 ScDuIDNpuhBqjUqdHCK5o 4UmCn93F14bIIinSMZoPR IeBLEjBLUulTznpi8khC9 wIi8+PGNvbCB3 uEB6hW2sSTHeSwF4JGeoF 940BjZwuUBlRbywi7ues3 pzyRs4PaXjAWDmsjUouPs tZDR3g0OvFs35 I28dXYwsAIGnUWAoWVIkI TRqbKxlzg8zcI2bEw2+PC 6px0vkcg47lC16pRB+PHR lKNE3pPouDOio CFBxqJ9zDIpjMgY0WFMnV cAzxC61uJPxWJjiCz4hoN gakOvsUF5fSDQscebcg24 8OtFzd0huRKYd uDSvJSfwEBO2E17yi1A4I LVtFDBrLRC5hPY6tU4ebG lnbjogbGVmdDsgdmVydGl xJNbrICokO009 IHRvcDsnPlBhdGllbnQgT rZpZTu9J4AbXfb9WBQpaH yeXN3klWWwGHzeRv1tjHq dgRvwTQ1aGMQd ppycd420IiJpm4skGMFmx ZUgYEkdYQG5F63el3G7RD NcQPLrWND7eQU7xJ8fnGl nbjogbGVmdDsg pzOzqYtgTChwYHctN903F HRvcDsnPkJpcnRoIERhdG H2XW66RP60cZGij7Y6qXV 9R8OrZPSuuabd utupdSK3XFTxKEDinX85R f3anOivCr6pQYNbIOB4HS QppPBjC6KvrA3hEwIfGXJ vHAGxB7KydDTy ZXsbO240GWhgWcE9EVLhz yWcZ1MnGQKqwVzjFlV8s4 Q3Dy8GG7A2YX88PQ65tOV wg5A6zXN8C3If ADVxaabdvtqnaAJ4MNAfC XJjaN78Cs6qoOxkHb0cWF EoCFF4QTTviBDuH8DbsJ8 yOiAjMDAwMDAw E8ZejLIxLSbxZ887PGbqR hQ9UDRlrdFtG7XmBDWrsJ zdDzW0o1C9Lu3MOEk7HR6 2IE40mQNhs9V9 uIT7O3JwZAZqjbebqwaxa UO9QHFmIXCxhB93Ri0seH kmFa6bHAIfAUM3CRPdeTJ oD5WmeY6lHhBs ZEDhBBCsX4DbvKRhZLhpV 668UMxrAfG5ASTsmnSkZ4 TsRAPkmFfyJjX1h5C4Po2 CEEJmLK41HTB0 cJZ1XP76CQ40W2UfIpota GFibGU+PHRhYmxlIHdpZH RoPScxMDAlJyBzdHlsZT0 wLh3cUFZqNKFr bBlcnSKaOxOls4oqMBNrS UkbWS0uvUngU7UxnYD7OS Biq6h7Ja86D34vF1QdjKH +IBGsdXD2fVF9 wG0eYxJaMkX6ZQigB647A aCztYAbVljla4rnj4yjfU l2TjZ5TTWlbeFcqTgdRBH 6l3HxFt42P55a IHdpZHRoPSIxNSUiIHZhb Lymyw3vfQ6nSz5+PGNvbC D6eQP5fF4lJcVzArR5VMs sZ112CoVplYOn Dzise5cqz1djhZb2VmYoM NXfhqWcrUamQNB4a1FdIn 24K5QoiQtti7DtGam3gf6 8rPZjp3Y1wZS6 G4UsHZOfylibnDDyySihJ R2oCJYyzjhrLLQekK4lJB TkO9o4WnWhUcC0PRlqS2P bsgZ8OTKrzISn WQqgZSD0P32vg5Z8DHEsB XLgBBT7fCA2hD4crEcupi ogbGVmdDsgdmVydGljYWw tUDbzJ425DPJa cOlkEIDlrM8iKNJuiXTyu FfiCJ2kBFOxcawbBhUSRX RXNRFYABgFBNYCUW87CX3 1gSXqw8U6tZS5 J3CuCPDbwessofxljBR9J LSkIPNftD17iQLqBMopRa 1is8F0z117OPTsSFZwyK5 7Og3fzVjiLJKr kQKNiO8tzvgea9tnubyqN gRiDQNsVWu6DAu3QPWmnD qfDmHlEDE8CwO6WZO4rMJ uoZ3cqLbarfbe eF8yYnw+EHTnJlqwYZy6E jwvdGQ+KBZoHKI3hOahEO dqIBCeuH1oYIUtV0e2EqY vBhK2TCjhJ9Ls OKYzesrlAz99yI1jOcJqT uJ5CKryZ6PiqlQ2QIDlrR CdIHjiUSC4A71me5D2AUL eOACxHPE4cUX6 sH2qcFbuzghotBWvmRnnh yVkcDyoNZhwWWyeH290GG BopOyvKmH2EGhuRCSvBB2 6DZ39nAFjb3Q2 uXJ0Z9NiTEOxtqogdavhk LV9RXMuUFIvhQ82lGRsJR qsMh2bk5A7v652DURpZHR zyL07Lf7rhVmh UFYuwIOQpY8nnhglo1wtc dimMrOpFXWxKJi0HJi7ON AlyUthNsFjKTO1XbV9OWN 1aYRbhD0tgRsi ahvfxR8uLxy+RmVtYWxlP H61SW07rVVds9L8kTR3R5 DbUKQxppxsmxkexXW9ARM cEGTzmJ90yIXr MIozCj7hb5Z1q302UWZoN JOyzE45Tw2tkBiwMBEmsZ MQvV1yxnndi4hnfkheXyF aPEJxGUn6RMo9 YSXzcOvoCsErUSX2PaP0Y MJ7yQZurV6uzRavoawdvS 9wOyc+XE3vlbojpqM4OV0 1EQ88R1OaJscy dGFibGU+PHRhYmxlIHdpZ HRoPScxMDAlJyBzdHlsZT 4sBc4iCPZkRPEmsOjxuEX jClJhx2bsBLEd MQlxXK9pxVdnC1DfvJW0I LGrs5q8Uu22O52eN3VkdG A+MJJdkCF8kGS5cZ1tEuC dAzU4NEzdC847 KwSwkXNcTshfs0jnf8hft To1HmXqJSLwzxKyvTgwQE N9p2ByYu19C67jUQbgBDB oPSIyMCUiIHZh zKwwuy3yzM6lGd9+PGNvb FC4jRW2fT9wYjVrTeF5KL vqP293MqDtwULkGtmuC48 nU7IluEC+PHRy Dst0CBNhgLmpZV1mfSTzU FeiVt4eLMM3DjQoSoCfQJ qwQ5YoJFHtierkzdyvwPH 3MQQuRYUzcI73 Ce8pjOasOp6iMOQqVRO6B SMayHBiR0NucK4sLfCoFB MrEFYxH0RtfPWfLOgzY24 7QHbmQnD7PYZl qpUoA9KoFTUolBllDpY9u 4Y7Ct5UaJxowWKyVF5nPs XtMHt6C1UsAxx3GTUlkRn oMB7xrLLiKWrk Ao3rcIvfdZodHR9yDOXdv rcic597YoVge1lnIJRskV ZkBMzyFRO9O20gr0K8MVB qFMHvWRA9vZD5 wL9byOuhcxgiwBZrtGuce tVcuXmrMOisRKkiQ472KL KcsZgpKrEEHgt2X1RxAea 3FGEeuGgwTR0q nNToMHlwMm7ckEjeiWqeE Q4hEFMytqlyw204RoZvs2 nhXTZipUJfOHfjOEK4N10 yx7M9EAHqZBVi CRC1qGC9iA8bsYzuycqya GVmdDsgdmVydGljYWwtYW gcS308OZLspHgxCy3AQyd 7Z3QcIyq6TENl aCdcRO4hbCPfMEamFa0ys ZxrjFucPF3uVIQndfojo0 37FjEas9vzTFLlsKAgXHv xJTT1O23gg4G1 HUQhNYFlYZO4pCW5fH7ju GlnbjogbGVmdDsgdmVydG bmOFtkLMnyQ135UBTnvHp nPlBheWVyOjwv dGQ+EI84nf71D1WoKlcfL me3EBDfSLC4dCR8qX6oVO OaNDohf7L9vHY5K1QzvxP ilr1px5dtMFWf ZTog (more content not included)... Normal [facility] Consent for Treatmenton Consent for Treatment [id number]#1 .00CD:127 Normal [facility] Discharge Instructionson Discharge Instructions [id number]# 1.00CD:127 Normal [facility] ED Clinical Summaryon 2021 ED Clinical Summary [place] [id number] ED Clinical Summary Person Information Name: BROOKLYNN KENYON [facility] Age: 26 Years : 1995 Sex: Female Language: Montenegrin PCP: MICHAEL HELMS MD Marital Status: Phone: [phone] Visit Id: Visit Reason: Dog bite: hand; [...] 15:44:14 08/08/2021 15:44:14 ADDRESS: [facility] [place] [facility] [id number] PHYS DOC NOTES: MEDICAL INFORMATION: Prescriptions Given: New Medications [id number], [address], [place] [id number], [phone] amoxicillin-clavulana te (Augmentin 875 mg oral tablet) [...] PATIENT EDUCATION INFORMATION: Instructions: Animal Bite, Adult, Sitf-wj-Mwwr Follow up: With: Address: When: MICHAEL HELMS [address] [place], [place] [id number] [employer] (1) In 3 days 08/11/2021 DIAGNOSIS: 1:Dog bite of middle finger; Bitten by dog, initial encounter Normal [facility] ED Patient Education Noteon 08-08-2021 ED [...] cannot use soap and water, use hand feeder operator automatic. ? Change your bandage as told by [...] bad smell. Medicines ? Take or apply chat-aft-nbmvyte and prescription medicines only as told by [...] Reviewed: 10/03/2017 Elsevier Patient Education ? 2020 [employer] Normal [facility] ED Patient Summaryon 022 ED Patient Summary [address] [address] Patient Discharge Instructions Person Information Name: BROOKLYNN KENYON Age: 26 Years Arrival Date: 08/08/2021 14:29:26 Discharge Diagnosis: 1:Dog bite of middle finger; Bitten by dog, initial encounter Primary Care Physician: MICHAEL HELMS MD Provider Information Primary Provider: Sourav Stinson DO [employer]eman:None The exam and treatment you received in the Emergency Department were for an urgent problem and are not intended as complete care. It is important that you follow up with a doctor, nurse practitioner, or physician?s executive assistant to general counsel for ongoing care. If your symptoms become [...] With: Address: When: MICHAEL HELMS [address], [place] [id number] [facility] (1) In 3 days 08/11/2021 In the event that this physician does not participate in your insurance network, please consult with your insurance company to find a nearby participating provider. Patient Education Materials: Animal Bite, Adult, Wwpj-pc-Etsu A MESSAGE TO ALL PATIENTS REGARDING OPIOIDS PRESCRIPTION OPIOIDS: WHAT YOU NEED TO KNOW Prescription opioids can be used to help relieve gwhifrvk-zv-piuzdm pain and are often prescribed following a [...] be struggling with addiction, tell your health direct support professional caregiver and ask for guidance or call SAM[employer]?S National Helpline at 7-050-525-ZI (more content not included)... Bernarda [facility] Coding Summary.on 02-24-2021 Coding Summary. CD:[id number] G h0bWw+PGhlYWQ+CF9KJOM bM93pbFAnfS6PZ8mDGA3D RNNWRWXNUI0PKL8rySR7D WcuQ6LvuxPs JrcynTXgIP32AGk8XZJ3d KxbXAmxzC5quJJwM5u4Fb XwAM49eO57CEasBJZrIkS 3LjZpbjsgbWFy L9ssAkZelRLmWkz+PHRhY mxlIHdpZHRoPScxMDAlJy JjvPriXU3bWv2lKSPtUER vbGxhcHNlOiBj z4olTEPyDKleSO7aiPotZ 1ZkwWY6JQLny0e2Kz82fO I+IXAqOMU5vLqfKYqek44 2CgBxa2eqKPO7 hTDuTMotEIQ2B14rl6T3B RMxEELiWFO1oCL3fF7bsN fexvucV9IppLTvNwI6HPV 0jEEinM8sjIuk relqyH1tJnq+C31OKS3MP LTHXQ5HRog0D6XtGkvjcV I+CA16MKOiOR64eFQlxCR ko6oajIo6WhJb JUAlKVT1qGunRFrkh0ToE AWcB13fwRHer5O0QIBktH btkDJyOhEqrAI4aZ1bNXe wjydpc5gdkerg Houqy1qicu97cB21S57vC ZffMBLxLHD2SHJfCVJzdZ hgol3peO7qVv6+TKlzh5i ay6sclRw6FkUv RETerlIvcVnnUIZ9r8LvD a30Y3YvoVhuw3QqFkl6cm 36vOWyp8O6pAK8CIkjGJC poZ4aCPgeIvK3 SQTpVhJolA03wLDsADcvY y1hyEwwwUrfIK3pRKFxhu agPDBjxD3aORIybQTouBk jQN5qAXMvzxqi t991EoHcWJX3TZKnaDWpL 0RayK9aXnGyWYOoLWWaJ9 NtwGHcLGkyX600NOfjXxS 4IPGdgkDsY3Gq TDSumKvaFqK6d0W6Mv0Hj 9LuxsdhUQY3QOvwZNIoXi S9BhFlPcZ2M5WaYlf8TZW pgYrrNB8qU3Ne OFWpduvyshatyNN2ZKQyC GNfpH11uRGiOVcrNc7fl8 Q8p591CCRsJVYmkV51Pk5 udDogMTBwdCBU oE2ozywyc3jwhqikZiExO IXaUNd6MMw7LBYlpLgcLq CwLXV4QpK5UMR4fXSnoU3 euRhhfwjuxB7m Oyc+Y90pvO0yHNF2JSN5f fqkJHYtgzLnWO79QQ37Z9 RyPjwvdGFibGU+PGRpdiB vlBvqKF0eOcDg z3wfc8WwATjdI6HkLWSvV XttTut4LPIiAJR0cSR9iK 8uXIZyFDkmn3X9eYC4J1Z eflUfay9lm1xw ARFmKScyI85euZAnu5G8V TPuuZW7WRAwmFbjWdUznH 93Oyc+PZVeuYgoh1ZwSvd gj8lhc5orrHh2 JmGvPRGdjgOoaAasNMU0l 6NpHe16U89uGMndHCZoLV IgFINhEBNvjZsfjh6pxK1 wIi8+PGNvbCB3 vYD8xB3gHCTkQlS2BPigL 491RvTyjPYpEbinm6zlg7 vfhMn5LxEzUWMpopSthCr mNOP8d2VwId88 I39lDQhjVEUlNUNvUKMgV QHwlRvxjw0nfB7gKp3+PC 8al0vfwd32kF45sGX+PHR nXGT8uIiuNKmh GRCpzH7pYNsvPqS6EICdE iVoaT16dDMqHJbfFe2dqX ixtJpmRF6uINKonppxh68 7WnRet4lxKLKm zNVyAQglXTS9B82uj7K5D DEtRGHaCUE2rYV3jJ2pmM lnbjogbGVmdDsgdmVydGl mAXqtGNiyY277 IHRvcDsnPlBhdGllbnQgT oChLGl6B8FxVhl4TSFvtL mbAK6paPQlFWqtRi8jcWp btTfoDD9wMVTy zesoi626JgFjm1dvJUKoh HDlWOdiJWV3S76bg7Q1ZW BaSCAiLJP4eZI3pM1xeRt nbjogbGVmdDsg xvLcrNkeGGkfBFrzP263E HRvcDsnPkJpcnRoIERhdG F3SG59ZD80wCQhw9C3qMQ 9D8XlKJSjqaii jkwfoBF4WFXnLCDslR05E c0lfDwyYe3xJJIoNTJ1TC PafELpL4FegX1fKbArACW fBSPoV2MjuIVy HDfoV663BBspYlR8NVHjl yCuH4JkHGUyuWgbHhS3k8 M3Ks1KJ8U8VZ67OT17fAU de7B4uKK3I8Wo BMGnpggoyvyjkRH1ORRzB VHhqO97Sz6keCjsCd5vOV TvTCD0WVFjtWIwP2KcfY6 yOiAjMDAwMDAw O3FkcWXpEKnjI340MOpsL vW3FHLwpwCbT2VfTPZhkP emFnS0q1H7Cr6HHCi6CD1 9UW69hNOeq1Y0 kGX9N8RqUDGwgchlbamwq VN6CFTpRDVueA24Ex5jjG itAt7sHHAkIGT2MSPjdHX lA8TqvQ2pAnVp BNDeNOKwD6QwqLOhGTwpO 555MEyoKkU2WKIvueSiE3 AhZRUjcXsbNsY0a5I8Wz0 JIKXzOA43SRA1 hSX3HH82LT90L0OrKlnyv GFibGU+PHRhYmxlIHdpZH RoPScxMDAlJyBzdHlsZT0 zRw6pPMFtONHu wVmdoJQfYeLwl5lnIDFkF PydSM0jmKaqY1WkhGO7EE Hec2a0Ki37N97eK6ChpCH +XNNmcYC2rUP7 zT0nZjUiOhV1LQqvG139W kFwaDRzZpuhn1cju5skcC y2PpQ5LDHgyhKveEkuGYG 1b3AzAd18P40h IHdpZHRoPSIxNSUiIHZhb Hnfwy2odM1cPl9+PGNvbC B3lGR2jH7fLdJeMiZ5XZu vV200OjLtqXKl Dqycq2snz5edcAm5BfQhF BPewnNaxUvcMCH1p3KdFw 09Y0NnmOifz6PuNdv5eg4 8vINzp7C4iQD7 N4LaVORvunqryOLhdByeJ E9sPCEyryryMBOiiY6tTV NcD7x1IuMhElK5FWsvD3O gwnD4QAElhXLy FMyzUFZ3T76os1Z2XCZfQ RAuJLC3bCC6xM8mfSuzui ogbGVmdDsgdmVydGljYWw wFGhdK366NZGa aIayYRWrqN7xNPQvoIWrz IzgRT1kAMZqrkycDiTITK QAAZTGUFeCUALWOY02BT5 5xUJwv3J3kZJ8 W6VwLHNnoxbbuizokEN3Z ZThLWHseS95gEMuBJwkJu 9jo3X4f654SJOoAQTblD4 3Fm6hzObjJDOe hVQXtX5xoggxb4upjuomG xWjVGNbORo4IQv4BCGoeG dzTtYjNMN1XfQ3SCV7zQY nlL6frBsejnor kP2fUuk+IUStSznvNJf4Q jwvdGQ+IDNuJKN2wKciKM xqWIEacT0jYMOoP0f9DuB rHvP5UBtbM1Oj IKLnzumpNr31iG7fRfQrL cI5GJbpX5YeoeD1SJUhpA MyXRriIMW1V71he0Y4MOI tOETjPBP3nBI4 gN2cmKcgnadvlMCbmPokc yEjoIwhUCktENdrU987CS RzhGxgBiL9TLtsSXCdNL7 7OF22yMQhj7J2 vQB2K1TnTQCavalbbcfoj QM0LRUxFELyaU96bSHnCM eeFf7ci9O0o980EILwVDN xpF60Te8tsGem JZMsnRCNkP7isxaef1hvk bsrSbNhCMRxWKv8QPl3DL JrfHbqBiZxTTA7XtR8RET 2eLPdpH9ceRdu vmfwsY9iMvk+RmVtYWxlP R64GE04yDGmy0U2tBA5Z7 ItKATweinevidmmDW9IGA eYYPavV46gAWm WKimEv0rf0N8l347MECjD SCerC10Fo0unJazMRZycM WJbW6yznjta0kxegnxNkR xJTGtABo4XEj4 BATcdGgvTbOvDYW8WoA7O PG3cXExbO5vgYvpxwevoT 9wOyc+UR0uuaylmvS5TV3 6WL88E9TbLdoz dGFibGU+PHRhYmxlIHdpZ HRoPScxMDAlJyBzdHlsZT 4aLe5bUBFnEIHslKsuzAR hXoZny8ddTNOh FHrjDK9apJcfK0EggAM9T MPwy7y9Fo17L23nJ6PbzJ A+KNKvyIB9cXC4oN6pJaX gVcV9HSysX173 CiJwuQKcDkepn8ugp9etu Du1PoYfWNXffiJliErsNI I5e1XvBp97M12pNYpcRHX oPSIyMCUiIHZh rVxmag5gbE0zHt0+PGNvb KG9xBH5oC1kKlJeZdZ6WO ryD002HtOrxOIlYcfzV09 hU3YzuXN+PHRy Hdw7XTSjcOkrNE2ycSYqJ YhkYx6mKIH4ZlYcVhFqOZ imA8DnSKCwwafdtavtuAF 9RTXmKKSpfB30 Fe4xjSubDw5bMUGeMHP6J IIspWJyA1YpoZ7fEhIzAO BsNALkO6NiiTEsFNvgX03 4HExeMwY5SHAo jjElX8PeZKCmyVqvYaM3v 6M7Dy4DwBgntBYeQY2qPw BtYIa2J4LpBsc2JMWwdCs aKY3yoJOvCVga Cn9xqArmiEsoSG3iIEBlc oxui200HqGfp5wyFFKxpW BxGDgtPSV2U76fn2C2BVM fNKWhEZD7pYB0 eB7dzKkqjnnpeAQxzHuvw hGdnOqyIRbrKOoyB630YC PdqAmzMySIRyg6U5GuLlf 4NBCopTknON7j eVSoAHfsCq9uuZsvwYcyM U3bNFYmpsqgk774IzQua9 cdFKEncAJsTLyjEVH1K58 uh1I9JNTfKKFl WOS5nRZ6nC1trZbbrrlpr GVmdDsgdmVydGljYWwtYW zxV885GKGvlEeqDm3GIqc 9D6HhGhr2ZHGd nThdSA0loWRcLZvmPj4fs CmvbWdrOA8mPIFuhrayr2 89QkPcy8aqETOmuHHzPMx vMTB5J02tc7X7 TPXjZKPuWDT7uYN3lP8ev GlnbjogbGVmdDsgdmVydG qsVOnqNZejR504MSYnbKm nPlBheWVyOjwv dGQ+BT91vo23K7CuKzegN mr2ZUOzGBR9uSW1jU7bZN AgCVgyw9M5pHL7H5YyqzV jnv1km0afGVEx ZTog (more content not included)... Normal [facility] .Manual Abson 02-23-2021 Basophils/Leukocyte s Manual cnt (Bld) [Pure # fraction] 0.0 E9/L Normal 0.0-0.2 [facility] Comment on above: Performed By: #### 2 [id number], [id number], [id number], [id number], [id number], [id number] ####[id number] [place] [address] Eosinophils/Leukocy kenyon Manual cnt (Bld) [Pure # fraction] 0.0 E9/L Normal 0.0-0.5 [facility] Comment on above: Performed By: #### 2 [id number], [id number], [id number], [id number], 0196721, [id number] ####[facility] [address] [place] [address] Lymphocytes/Leukocy kenyon Manual cnt (Bld) [Pure # fraction] 1.8 E9/L Normal 1.0-4.0 [facility] Comment on above: Performed By: #### 2 440238, [id number], [id number], [id number], 4647701, [id number] ####[address] [address] Monocytes/Leukocyte s Manual cnt (Bld) [Pure # fraction] 0.3 E9/L Normal 0.2-1.0 [facility] Comment on above: Performed By: #### 2 608225, [id number], 65100476, 85616076, 3277824, 9535916 ####[facility] [address] [place] [address] Neutrophils/Leukocy kenyon Auto (Bld) [Pure # fraction] 1.7 E9/L Low 2.0-7.5 [facility] Comment on above: Performed By: #### 2 413545, [id number], 83674658, 97264125, 2531329, 3006101 ####[facility] [address] [place] [address] BMPon 02-23-2021 Creatinine [Mass/Vol] 0.7 mg/dL Normal 0.5-1.3 [facility] Comment on above: Performed By: #### 2 721445, [id number], 97812515, 63951784, 2814771, 4566385 ####[facility] [address] [place] [address] Urea nitrogen [Mass/Vol] 7 mg/dL Normal 5-21 [facility] Comment on above: Performed By: #### 2 246890, 34678735, 28115566, 34072721, 1635965, 7466861 ####[facility] [address] [place] [address] Urea nitrogen/Creatinine [Mass ratio] 10 No Units Normal 10-20 [facility] Comment on above: Performed By: #### 2 374105, 57934555, 55299858, 46741798, 5477795, 7061622 ####[facility] [address] [place] [address] Anion gap [Moles/Vol] 13 mmol/L Normal 6-16 [facility] Comment on above: Performed By: #### 2 791486, 12906878, 36203006, 12182321, 6799875, 7035022 ####[facility] [address] [place] [address] Calcium [Mass/Vol] 9.0 mg/dL Normal 8.9-11.1 [facility] Comment on above: Performed By: #### 2 976961, [id number], [id number], 29803996, 2322122, 6307150 ####[facility] [address] [place] [address] Chloride [Moles/Vol] 103 mmol/L Normal 101-111 [facility] Comment on above: Performed By: #### 2 863157, 10139217, 93545707, 10397358, 9716812, 1030664 ####[facility] [address] [place] [address] CO2 [Moles/Vol] 22 mmol/L Normal 21-31 [facility] Comment on above: Performed By: #### 2 421480, 75600167, 68747426, 24470593, 4549892, 5113419 ####[facility] [address] [place] [address] Glucose [Mass/Vol] 129 mg/dL Normal 55-199 [facility] Comment on above: Result Comment: If t his glucose result represents a fasting glucose, interpretation should refer to the following reference range: 55-99 mg/dL Performed By: #### 2 844385, 92388043, 89496112, 32001815, 9723002, 2207758 ####[facility] [address] [place] [address] Potassium [Moles/Vol] 3.3 mmol/L Low 3.5-5.3 [facility] Comment on above: Performed By: #### 2 694807, 34677769, 13466918, 69419404, 8759048, 8950734 ####[facility] [address] [place] [address] Sodium [Moles/Vol] 135 mmol/L Normal 135-145 [facility] Comment on above: Performed By: #### 2 495294, 09688218, 25366583, 10956318, 2783858, 8495660 ####[facility] [address] [place] [address] CBC w/ Auto Diffon 1 Erythrocyte distribution width (RBC) [Ratio] 13.5 % Normal 10.9-14.2 [facility] Comment on above: Performed By: #### 2 338385, 95711597, 12718247, 81738537, 1980135, 1452219 ####[address] [place] [address] Hematocrit (Bld) [Volume fraction] 37.1 % Normal 34.0-46.0 [facility] Comment on above: Performed By: #### 2 203542, 59686267, 44736671, 36300396, 8759738, 4551137 ####[address] [address] Hemoglobin (Bld) [Mass/Vol] 12.5 g/dL Normal 12.0-16.0 [facility] Comment on above: Performed By: #### 2 697790, 43759941, 18534922, 95764101, 3838025, 2010731 ####[address] [address] MCH (RBC) [Entitic mass] 29.4 pg Normal 27.0-34.0 [facility] Comment on above: Performed By: #### 2 513830, 90549049, 93270430, 32501757, 2361450, 9398159 ####[address] [address] MCHC (RBC) [Mass/Vol] 33.6 g/dL Normal 31.4-36.0 [facility] Comment on above: Performed By: #### 2 040130, 93113926, 72342754, 89940017, 2695815, 0139133 ####[address] [address] MCV (RBC) [Entitic vol] 87.4 fL Normal 80.0-100.0 [facility] Comment on above: Performed By: #### 2 359002, 93510883, 66671451, 83498505, 1151171, 4543176 ####[address] [address] Platelet mean volume (Bld) [Entitic vol] 9.4 fL Normal 6.4-10.8 [facility] Comment on above: Performed By: #### 2 876659, 81379997, 06004876, 71711079, 7479156, 2368649 ####[facility] [address] [place] [address] Platelets (Bld) [#/Vol] 208.0 E9/L Normal 150.0-500.0 [facility] Comment on above: Performed By: #### 2 182357, 71472120, 62994258, 50553993, 6469371, 3472239 ####[facility] [address] [place] [address] RBC (Bld) [#/Vol] 4.2 E12/L Low 4.3-5.9 [facility] Comment on above: Performed By: #### 2 137401, 57282171, 78841906, 21128046, 1368232, 1600923 ####[address] [place] [address] WBC corrected for nucl RBC Auto (Bld) [#/Vol] 3.8 E9/L Low 4.0-11.0 [facility] Comment on above: Performed By: #### 2 870838, 42564143, 26664385, 67969058, 2399114, 4844043 ####[facility] [address] [place] [address] Consent for Treatmenton 02-06 Consent for Treatment [id number]:127 Normal [facility] Discharge Instructionson Discharge Instructions [id number]:127 Normal [facility] ED Clinical Summaryon 2020 ED Clinical Summary [address] [address] ED Clinical Summary Person Information Name: BROOKLYNN KENYON [facility] Age: 26 Years : 1995 Sex: Female Language: Montenegrin PCP: MICHAEL HELMS MD Marital Status: Phone: [phone] Visit Id: Visit Reason: Shortness of breath; [...] 02/23/2021 15:23:48 02/23/2021 15:23:48 02/23/2021 15:23:48 ADDRESS: [facility] [id number] PHYS DOC NOTES: MEDICAL INFORMATION: Prescriptions Given: [...] Follow up: With: Address: When: MICHAEL HELMS [address] [place] [address] Business (1) In 3 days 02/26/2021 DIAGNOSIS: 1:Vaccine reaction Normal [facility] ED Note-Physicianon 02-24-20 ED Note-Physician Basic [...] Information MICHAEL HELMS In 3 days 02/26/[address] Business (1) Additional Instructions: Patient Education Post-Injection Inflammatory Reaction Attestation Patient seen and evaluated by the physician executive assistant to general counsel. Attending physician was present in the emergency department and supervised care. This report was transcribed using voice recognition software. Every effort was made to ensure accuracy, however, inadvertently computerized planing machine operator mistakes may be present. Appropriate healthcare PPE [...] % (02/23/21 (more content not included)... Normal [facility] Comment on above: Result Comment: Elec [...] a physical exam. During the exam, a kootenai may be drawn around the injection site. The kootenai helps to show whether redness in the area is spreading. How is this treated? Treatment for this condition depends on what caused the reaction and how severe the reaction is. Treatment may include: ? Putting an ice pack over the injection site. ? Taking a nonsteroidal anti-inflammatory drug (NSAID) to lessen swelling and itching. ? Taking antibiotic medicine. ? Taking inqi-qku-mijqlvs pain medicine. If the reaction affects a joint, you may also need to rest the joint for a while. Follow these instructions at home: Medicines ? If you were prescribed antibiotic medicine, take or apply it as told by your health care provider. Do not stop taking or applying the antibiotic even if you start to feel better. ? Take bgxx-tub-ajykhig and prescription medicines only as told by [...] 12/05/2011 Document Revised: 07/17/2019 Document Reviewed: 03/02/2019 [employer] Patient Education ? 2019 [employer]. Normal [facility] ED Patient Summaryon ED Patient Summary [address] [address] Patient Discharge Instructions Person Information Name: BROOKLYNN KENYON Age: 26 Years Arrival Date: 02/23/2021 12:58:05 Discharge Diagnosis: 1:Vaccine reaction Primary Care Physician: MICHAEL HELMS MD Provider Information Primary Provider: Julee Herrera M.D. Advanced Electrical Wiring Lineman:Robert Urena PA-C The exam and treatment you received in the Emergency Department were for an urgent problem and are not intended as complete care. It is important that you follow up with a doctor, nurse practitioner, or physician?s executive assistant to general counsel for ongoing care. If your symptoms become worse or you do not improve as expected and you are unable to reach your usual health care provider, you should return to the Emergency Department. We are available 24 hours a day. BROOKLYNN KENYON has been given the following list of patient education materials, prescriptions and follow-up instructions: Follow-up Instructions: With: Address: When: MICHAEL HELMS [address] [place] [address] Business (1) In 3 days 02/26/2021 In the event that this physician does not participate in your insurance network, please consult with your insurance company to find a nearby participating provider. Patient Education Materials: Post-Injection Inflammatory Reaction A MESSAGE TO ALL PATIENTS REGARDING OPIOIDS PRESCRIPTION OPIOIDS: WHAT YOU NEED TO KNOW Prescription opioids can be used to help relieve mvnfkgen-ck-mzzusq pain and are often prescribed following a [...] be struggling with addiction, tell your health direct support professional caregiver and ask for guidance or call [facility]?S National Helpline at 2-730-047-YZWE. (more content not included)... Normal [facility] Manual Diffon 02-23-2021 Band form neutrophils/100 WBC (Bld) 6 % Normal 0-10 [facility] Comment on above: Order Comment: Order Added by Discern Expert. Performed By: #### 2 212832, 57747287, 16274044, 83027715, 7368959, 4160814 ####[facility] [address] [place] [address] Basophils/100 WBC (Bld) 0 % Normal 0-2 [facility] Comment on above: Order Comment: Order Added by Discern Expert. Performed By: #### 2 137705, 96396777, 20389380, 72810741, 6569068, 8104448 ####[facility] [address] [place] [address] Eosinophils/100 WBC (Bld) 1 % Normal 0-8 [facility] Comment on above: Order Comment: Order Added by Discern Expert. Performed By: #### 2 316875, 30812313, 26937257, 63917568, 2451821, 0320894 ####[facility] [address] [place] [address] Lymphocytes/100 WBC (Bld) 44 % Normal 14-50 [facility] Comment on above: Order Comment: Order Added by Discern Expert. Performed By: #### 2 397051, 32286235, 45267473, 45363907, 0252781, 6102622 ####[facility] [address] [place] [address] Monocytes/100 WBC (Bld) 7 % Normal 4-14 [facility] Comment on above: Order Comment: Order Added by Discern Expert. Performed By: #### 2 515184, 32381929, 96670170, 36354624, 0058597, 6584949 ####[facility] [address] [place] [address] Morphology Mateusz (Bld) [Interp] Normal Normal [facility] Comment on above: Order Comment: Order Added by Discern Expert. Performed By: #### 2 092690, 06339693, 06006093, 76656137, 8193943, 6534387 ####[facility] [address] [place] [address] Segmented neutrophils/100 WBC (Bld) 39 % Normal 36-75 [facility] Comment on above: Order Comment: Order Added by Discern Expert. Performed By: #### 2 709753, 88295027, 57242542, 13769965, 8836873, 4355325 ####[facility] [address] [place] [address] Variant lymphocytes LM Ql (Bld) 3 % Invalid Interpretation Code [facility] Comment on above: Order Comment: Order Added by Discern Expert. Performed By: #### 2 552699, 31034625, 72746093, 41270868, 1898304, 5033771 ####[facility] [address] [place] [address] Prescriptions/Work Noteson 1 04-25-2020 Prescriptions/Work Notes [id number]:127 Normal [facility] Troponin 0 Hr.on 02-23-2021 Troponin I.cardiac [Mass/Vol] 2.30 pg/mL Low 10.10-27.10 [facility] Comment on above: Result Comment: The 95% CI (Confidence Interval) PPV (Positive Predictive Value) for myocardial infarction in females is 38 pg/mL, in males 51 pg/mL. The results should be used in conjunction with clinical conditions of myocardial infarction. (Access High Sensitivity Troponin I Instructions For Use, [employer], November 2017) Performed By: #### 2 161544, 16246829, 61828477, 94036250, 4757921, 7864638 ####[facility] [address] [place] [address] XR Chest Single Viewon 02-23 XR Chest [...] Mckeon MD, V. Transcribed by: KEMAR Technologist: LKS Normal [facility] eGFRon 02-23-2021 GFR/1.73 sq M.predicted among blacks MDRD (S/P/Bld) [Vol rate/Area] mL/min/{1.73_m2} Normal >=59 [facility] Comment on above: Order Comment: Order added by Discern Expert. Result Comment: eGFR is race adjusted. AA=. Performed By: #### 2 338798, 71009526, 32264861, 55645947, 5526506, 8043532 ####[facility] [address] [place] [address] GFR/1.73 sq M.predicted among non-blacks MDRD (S/P/Bld) [Vol rate/Area] mL/min/{1.73_m2} Normal >=59 [facility] Comment on above: Order Comment: Order added by Discern Expert. Result Comment: Algology Teacher jorden kidney disease could be indicated at eGFR's of less than 60 mL/min/1.73m2. Kidney failure is indicated at less than 15 mL/min/1.73m2. Performed By: #### 2 657500, 02849977, 81938034, 71421738, 5183879, 4002239 ####[facility] [address] [place] [address] Ambulatory Clinical Summaryo n 10-14-2020 Ambulatory Clinical Summary {[id number] Normal [facility] Vital Signs Date Time Vital Sign Value Performing Clinician Facility 01-22-2024 15:16-0400 Body mass index (BMI) [Ratio] 39.47 kg/m2 [employer] Work Phone: [facility] 01-22-2024 15:16-0400 Body weight 114.31 kg [employer] Work Phone: [facility] 01-22-2024 15:16-0400 Diastolic blood pressure 72 mm[Hg] [employer] Work Phone: [facility] 01-22-2024 15:16-0400 Systolic blood pressure 124 mm[Hg] [employer] Work Phone: [facility] 06-22-2022 09:21-0400 Body height 167.6 cm ANTELMO Bills MD Work Phone: [facility] 06-22-2022 09:21-0400 Body weight 112.49 kg ANTELMO Bills MD Work Phone: [facility] 08-08-2021 14:31-0400 Body temperature 98.24 [degF] Sourav Stinson [facility] 08-08-2021 14:31-0400 Diastolic blood pressure 97 mm[Hg] Sourav Stinson [facility] 08-08-2021 14:31-0400 Heart rate 94 /min Sourav Stinson [facility] 08-08-2021 14:31-0400 Respiratory rate 18 /min Sourav Stinson [facility] 08-08-2021 14:31-0400 SaO2% (BldA) [Mass fraction] 98 % Sourav Stinson [facility] 08-08-2021 14:31-0400 Systolic blood pressure 137 mm[Hg] Sourav Stinson [facility] Encounters Encounter Date Encounter Type Care Provider Facility Start: 03-18-2024 End: 03-18-2024 ambulatory CELESTE MORRO Not Available Start: 02-19-2024 End: 02-19-2024 ambulatory CELESTE MORRO Not Available Start: 01-22-2024 End: 01-22-2024 ambulatory CELESTE MORRO Not Available Start: 01-22-2024 End: 01-22-2024 flow sheet Celeste Morro DO Work Phone: [facility] Comment on above: Second trimester pre gnancy; 18 weeks gestation of Start: 01-22-2024 End: 01-22-2024 Bamboo flowsheet Celeste Morro DO Work Phone: [facility] Start: 01-22-2024 End: 01-22-2024 Bamboo flowsheet Celeste Morro DO Work Phone: [facility] Start: 12-23-2023 End: 12-23-2023 ambulatory CELESTE MORRO Not Available Start: 11-25-2023 End: 11-25-2023 ambulatory CELESTE MORRO Not Available Start: 09-09-2023 End: 09-09-2023 ambulatory ENIO CIFUENTES Not Available Start: 08-12-2023 End: 08-12-2023 ambulatory JULIO PULIDO Not Available Start: 08-07-2023 End: 08-07-2023 ambulatory CELESTE HOOKER Not Available Start: 07-11-2023 End: 07-11-2023 ambulatory MICHAEL HELMS Not Available Start: 06-19-2023 End: 06-19-2023 ambulatory CELESTE HOOKER Not Available Start: 06-13-2023 End: 06-13-2023 ambulatory CELESTE MORRO Not Available Start: 03-05-2023 End: 03-05-2023 ambulatory CELESTE MORRO Not Available Start: 08-14-2022 Encounter for genera l adult medical examination without abnormal findings DR MICHAEL HELMS [facility] Start: 08-07-2022 End: [...] End: 08-08-2021 Emergency department patient visit Sourav Davise [facility] Procedures Date Procedure Procedure Detail Performing Clinician Start: 01-22-2024 Urnls dip stick/tabl et rgnt non-auto w/o micrscp Celeste Morro DO Work Phone: Start: 01-27-2015 excision of pilar [address] - local Sourav Stinson Lithotripsy Sourav Stinson Plan of Treatment Date Care Activity Detail Author Start: 02-19-2024 End: 02-19-2024 Patient encounter procedure 02/19/2024 3:10 PM EST Routine [facility] [address] [place] [address] Celeste Hooker, DO [address] [place] [address] [facility] Start: 01-29-2024 End: 01-29-2024 Professional / ancillary services management 01/29/2024 2:30 PM EDT Ancillary Procedure [facility] [address] [address] [facility] Start: 12-08-2023 Influenza vaccination Influenza Vacc ine (#1) [facility] Start: 04-08-2022 DEPRESSION ASSESSMENT DEPRESSION ASS ESSMENT [facility] Start: 12-07-2021 Influenza vaccination INFLUENZA (#1) [facility] Start: 04-18-2021 COVID-19 VACCINE (2 - Booster for Vinny series) COVID-19 VACCINE (2 - Booster for Vinny series) [facility] Start: 02-03-2017 PAP TESTING PAP TESTING [facility] Start: 02-03-2015 Urine microalbumin profile DTAP,TDAP ,TD (1 - Tdap) [facility] Start: 02-03-2014 HEPATITIS C SCREENING HEPATITIS C SC HAM [facility] Start: 02-03-2014 HIV SCREENING HIV SCREENING [facility] Start: 02-03-2010 PEDS TO ADULT TRANSI TION ANNUAL ASSESSMENT PEDS TO ADULT TRANSITION ANNUAL ASSESSMENT [facility] Start: 2008 PEDS TO ADULT TRANSI TION INITIAL DISCUSSION PEDS TO ADULT TRANSITION INITIAL DISCUSSION [facility] Start: 02-03-2007 HPV VACCINE (1 - 2-d ose series) HPV VACCINE (1 - 2-dose series) [facility] Start: 1996 HEPATITIS B (1 of 3 - 3-dose series) HEPATITIS B (1 of 3 - 3-dose series) [facility] Immunizations Immunization Date Immunization Notes Care Provider Fa cility 02-07-2020 influenza virus vacc ine, unspecified formulation Celeste Hooker DO Work Phone: [facility] Payers Date Payer Category Payer Private Health Insurance [facility] [id number] 2021 Private Health Insurance [id number] 1996 Unknown [id number] 2.16.840.1.925857.3.579.2. 593 1996 Unknown [id number] 2.16.840.1.330300.3.579.2. 593 1996 Unknown [id number] 2.16.840.1.955166.3.579.2. 593 1996 Unknown [id number] 2.16.840.1.066314.3.579.2. 593 1996 Unknown [id number] 2.16.840.1.636640.3.579.2. 593 1996 Unknown [id number] 2.16.840.1.289114.3.579.2. 1259 1996 Unknown [id number] 2.16.840.1.339796.3.579.2. 1259 1996 Unknown [id number] 2.16.840.1.618189.3.579.2. 1259 1996 Unknown [id number] 2.16.840.1.310201.3.579.2. 1259 1996 Unknown [id number] 2.16.840.1.499478.3.579.2. 1259 1996 Unknown [id number] 2.16.840.1.753202.3.579.2. 1259 1996 Unknown [id number] 2.16.840.1.755109.3.579.2. 9 1996 Unknown [id number] 2.16.840.1.118092.3.579.2. 9 1996 Unknown [id number] 2.16.840.1.006901.3.579.2. 9 1996 Unknown [id number] 2.16.840.1.127177.3.579.2. 1259 1996 Unknown [id number] 2.16.840.1.148968.3.579.2. 9 1996 Unknown [id number] 2.16.840.1.030937.3.579.2. 1259 1959 Private Health Insurance [id number] 1959 Unknown [id number] Social History Date Type Detail Facility Start: 10-11-2018 End: 07-11-2023 Tobacco smoking status Never smoked tobacco (finding) [facility] Start: 07-11-2023 Sex Assigned At Female F [facility] Start: 06-22-2022 End: 07-11-2023 Tobacco use and exposure Smokeless tobacco non-user [facility] Start: 1995 Sex Assigned At Not on file C [facility] Start: 12-23-2023 Alcoholic beverage intake Lifetime [...] Noted Herpes labialis 04/15/2023 Generalized anxiety disorder ([facility]/HCC) 07/11/2023 Dyslipidemia ([facility]/HCC) 07/11/2023 Metabolic syndrome 07/11/2023 PCOS (polycystic ovarian syndrome) 07/11/2023 Vitamin D deficiency 07/11/2023 Morbid obesity due to excess calories ([facility]) 07/11/2023 Pharyngitis 07/11/2023 Resolved Ambulatory Problems Diagnosis Date Noted No Resolved Ambulatory Problems Past Medical History: Diagnosis Date Back pain Cold sore SONYA (generalized anxiety disorder) ([facility]/HCC) History of migraine headaches Kidney stones Migraines ([facility]) Obesity HISTORY PAST MEDICAL HISTORY SOCIAL HISTORY Past Medical History: Diagnosis Date Back pain Cold sore Dyslipidemia ([facility]/HCC) SONYA (generalized anxiety disorder) ([facility]) History of migraine headaches Kidney stones Migraines ([facility]/HCC) Obesity PCOS (polycystic ovarian syndrome) Vitamin D [...] scalp DILATION AND CURETTAGE OF UTERUS 2020 [facility] KIDNEY STONE SURGERY 2016 Kidney Stones REVIEW [...] nursing note reviewed. Exam conducted with a collections clerk present. Vitals: Estimated body mass index is [...] OPENED IN ERROR documented in this encounter [facility] Clinical Note 08-23-2021 Note Date & [...] by: CARMEN SOLORIO Date: 2021-08-23 14:56 [facility] Discharge instructions 08-08-2021 Note Date & Type Note Facility 08-08-2021 Hospital Discharg e instructions Patient Education 08/08/2021 15:44:15 Animal Bite, Adult, Zwbr-bt-Kxkc Animal Bite, Adult Animal bite wounds can [...] cannot use soap and water, use hand feeder operator automatic. ?Change your bandage as told by your [...] a bad smell. Medicines Take or apply cirp-rtb-qpjekpb and prescription medicines only as told by [...] 03/25/2006 Document Revised: 03/20/2018 Document Reviewed: 10/03/2017 [employer] Patient Education 2020 [employer]. Follow Up Care 08/08/2021 14:30:18 With:MICHAEL HELMS Address: [address] [place], [place] [address] [address] Business (1) When:08/11/2021 15:01:11 [facility] Evaluation + Plan note Note Date & Type Note Facility Evaluation + Plan note No data available for this section [facility] Evaluation note Note Date & Type Note Facility Evaluation note Diagnosis OPENED IN ERROR- Primary To allow closing an encounter opened in error (used in SmartSet) documented in this encounter [facility] Evaluation note Note Date & Type [...] and content) DATE CREATED AUTHOR 08/12/2021 Amato Whitman [facility] DATE CREATED AUTHOR AUTHOR'S ORGANIZ ATION 09/12/2021 [facility] Specialist DATE CREATED AUTHOR AUTHOR'S ORGANIZ ATION 08/15/2022 [facility] DATE CREATED AUTHOR AUTHOR'S ORGANIZ ATION 11/26/2023 [facility] Specialists EPIC DATE CREATED AUTHOR AUTHOR'S ORGANIZ ATION 03/21/2024 [facility] Specialists EPIC Source Comments (unrecognize d section and content) In the event this informatio n is protected by the Federal Confidentiality of Alcohol and Drug Abuse Patient Records regulations: The Federal rules restrict any use of the information to criminally investigate or prosecute any alcohol or drug abuse patient.[facility] Reason for Visit (unrecogniz ed section and content) Reason Comments Opened In Error Reason Comments Routine Visit Care Teams (unrecognized sec tion and content) Bond Runner Relationship Specialty Start Date End Date Michael Helms [address] [place] [address] PCP - General Family Medicine 06/08/22 Bond Runner Relationship Specialty Start Date End Date Michael Helms MD [address] [place] [address] PCP - General Family Medicine 07/11/23 Bond Runner Relationship Specialty Start Date End Date Michael Helms MD [address] [place] [address] PCP - General Family Medicine 07/11/23 FOR [...] BE BASED ON THE PRIMARY CLINICAL RECORDS. [employer] [facility]. provides no warranty or guarantee of the accuracy or completeness of information in this document.
== END 2024-04-06 14:30 | disposition home or self-care (01) ==
LOC: US 14:30
PROVIDERS: PCP Family Medicine; Visit Provider Obstetrics & Gynecology
DX: Z36.2 Encounter for other antenatal screening follow-up (principal); Z3A.29 29 weeks gestation of pregnancy
CPT/HCPCS: 76815

== ENCOUNTER 2024-05-26 20:26 | Outpatient (REF) | payer OTHER, SELFPAY ==
--- OUTSIDE RECORDS SUMMARY | 2024-05-26 20:30 | XMS_ITS | CCD ---
Author Organization [facility] Care Team Providers Care Fire Equipment Operator Name Role Phone MICHAEL HELMS Primary Care Physician Michael Helms Primary Care Provider [phone] SCOOTER, DR MICHAEL Camejo Admitting Unavailable NADERER, [...] Camejo Primary Care Unavailable NADERER, DR MICHAEL Caemjo Admitting Unavailable NADERER, DR MICHAEL Camejo Attending Unavailable NADERER, DR MICHAEL Camejo Consulting Unavailable NADERER, DR MICHAEL Camejo Primary Care Unavailable NADERER, DR MICHAEL Camejo Admitting Unavailable IESHA TORRE Primary Care Unavailable ZIEBER, DR CARMEN Aguilar Consulting Unavailable NADERER, DR MICHAEL Camejo Attending Unavailable NADERER, DR MICHAEL Camejo Consulting Unavailable MORRO, SAM Attending Unavailable MORRO, SAM Attending Unavailable NADERER, MICHAEL Attending Unavailable MORRO, SAM Attending Unavailable MORRO, SAM Attending Unavailable JULIO PULIDO Attending Unavailable ESAU, ENIO Attending Unavailable MORRO, SAM Attending Unavailable Michael Helms MD Primary Care Provider SAM HOOKER Referring Unavailable MORRO, SAM Attending Unavailable MORRO, SAM Attending Unavailable MORRO, SAM Attending Unavailable MORRO, SAM Attending Unavailable MORRO, SAM Attending Unavailable MORRO, SAM Attending Unavailable MORRO, SAM Attending Unavailable Allergies Allergy Classification Reported Allergen(s) Allergy Type Date of Onset Reaction(s) Facility (20 sources) cefdinir Drug Allergy 3 Rash, Shortness [...] # 28 tab(s), Refills(s) 0, Pharmacy: [facility]/pharmacy #[id number], 168, cm, 08/08/21 14:35:00 EDT, Height/Length Dosing, 108, kg, 08/08/21 14:35:00 EDT, Weight Dosing Start Date: 08/08/21 Stop Date: 08/22/21 Status: Ordered aspirin 81 mg delayed release oral tablet (20 sources) Platelet Aggregation Inhibitor, Nonsteroidal Anti-inflammatory Drug [...] Ordered magnesium oxide 400 mg oral tablet (20 sources) Start: 12-30-19 End: 07-28-19 take 1 tablet by mouth once daily magnesium oxide (Mag-Ox) 400 MG tablet Indications: Nonintractable headache, unspecified chronicity pattern, unspecified headache type Take 1 tablet (400 mg) by mouth Daily 30 tablet 6 12/30/2023 07/27/2024 Active Start: 11-25-2023 End: 12-25-2023 take 1 tablet by mouth once daily magnesium oxide (Mag-Ox) 400 MG tablet Indications: Headache in , antepartum, first trimester Take 1 tablet (400 mg) by mouth Daily 30 tablet 6 11/25/2023 12/23/2023 Discontinued nitrofurantoin, macrocrystals 25 mg / nitrofurantoin, monohydrate 75 mg oral capsule (2 sources) Nitrofuran Antibacterial Start: 12-23-2023 End: 12-30-2023 take 1 capsule by mouth in the morning nitrofurantoin, macrocrystal-monohydrate, (Macrobid) 100 MG capsule Indications: UTI symptoms Take 1 capsule (100 mg) by mouth in the morning and 1 capsule (100 mg) before bedtime. Do all this for 7 days. 14 capsule 12/23/2023 12/30/2023 Active ondansetron 4 mg disintegrating oral tablet (4 sources) Serotonin-3 Receptor Antagonist Start: 2024 End: 03-05-2024 take 1 tablet by mouth every six hours as needed for nausea and vomiting and nausea and nausea ondansetron ODT (Zofran-ODT) 4 MG disintegrating tablet Indications: Nausea Take 1 tablet (4 mg) by mouth every 6 (six) hours if needed for nausea or vomiting 30 tablet 2 2024 03/05/2024 Active Vit-Fe Fumarate-FA ( 1 PLUS 1 PO) (20 sources) Vit-Fe Fumarate-FA ( 1 PLUS 1 PO) Take 1 each by mouth Daily Active Completed/Discontinued Medications Medication Drug Class(es) Dates Sig (Normalized) Sig (Original) azithromycin 250 mg oral tablet (7 sources) Macrolide Antimicrobial Start: 03-09-20 End: 04-15-19 25 azithromycin (Zithromax Z-Kennedy) 250 MG tablet Indications: Sinusitis, unspecified chronicity, unspecified location As directed 6 tablet 03/09/2024 04/15/2024 Discontinued citalopram 20 mg oral tablet (1 source) Serotonin Reuptake Inhibitor Start: 05-25-19 take 1 tablet by mouth once daily citalopram (CELEXA) 20 mg tablet Take 20 mg by mouth once daily. 0 05/25/2022 Active Comment on above: Take 20 mg by mouth once daily. medroxyPROGESTERone acetate 10 mg oral tablet (2 sources) Progestin Start: 10-12-19 medroxyPROGESTERone (PROVERA) 10 mg tablet Take 10 mg by mouth. 0 10/11/2018 Active Comment on above: Take 10 mg by mouth. metFORMIN hydrochloride 500 mg oral tablet (2 sources) Biguanide Start: 10-12-19 metFORMIN (GLUCOPHAGE) 500 mg tablet Take 500 mg by mouth. 0 10/11/2018 Active Comment on above: Take 500 mg by mouth . Progesterone 200 MG suppository (3 sources) Start: 11-18-19 End: 12-23-19 Progesterone 200 MG suppository Indications: History of miscarriage Insert 200 mg into the vagina at bedtime Insert suppository vaginally every night at bedtime until 12 weeks gestation 30 suppository 2 11/18/2023 12/23/2023 Discontinued Start: 11-18-2023 End: 12-18-2023 Progesterone 200 MG supposit ory Indications: History of miscarriage Insert 200 mg into the vagina at bedtime Insert suppository vaginally every night at bedtime until 12 weeks gestation 30 suppository 2 11/18/2023 12/18/2023 Active Problems Active Problems Problem Classification Problem Date Documented Date Episodic/Chronic Adjustment disorders (2 sources) Adjustment disorder; Translations: [Adjustment disorder with mixed anxiety and depressed mood] Chronic Anxiety disorders (20 sources) Anxiety; Translations: [Generalized anxiety disorder] Onset: 07-11-2023 10-11-2018 Chronic Calculus of urinary tract (1 source) Kidney stone 10-11-2018 Episodic Disorders of lipid metabolism (20 sources) Dyslipidemia; Translations: [Hyperlipidemia, unspecified] Onset: 07-11-2023 [...] AGNST/STRUCK OTH OBJ INIT] Onset: 06-18-2022 Episodic Genitourinary symptoms and ill-defined conditions (2 sources) Urinary symptoms ; Translations: [Unspecified symptoms and signs involving the genitourinary system] 12-23-2023 Episodic Headache; including migraine (2 sources) Migraine; Translations: [Migraine, unspecified, not intractable, without status migrainosus] Chronic Headache; including migraine (3 sources) Headache; including migraine; Translations: [HEADACHE UNSPECIFIED] Onset: 06-14-2022 Immunizations and screening for infectious disease (3 sources) Encounter for screening for human papillomavirus (HPV); Translations: [Exposure to sexually transmissible disorder] Onset: 2022 12-23-2023 Episodic Intracranial injury (1 source) Concussion without loss of consciousness, initial encounter; Translations: [CONCUSSION WITHOUT LOC INITIAL ENC] Onset: 06-18-2022 Episodic Mood disorders (1 source) Depressive disorder 10-11-2018 Chronic Nutritional deficiencies (20 sources) Vitamin D deficiency, unspecified; Translations: [Vitamin [...] current use of drug therapy; Translations: [Other longwall machine operator helper (current) drug therapy] Episodic Other aftercare (1 source) Other mcfp (current) drug therapy; Translations: [OTH CCIE CURRENT DRUG THERAPY] Onset: 06-18-2022 Episodic Other complications of (2 sources) Excessive growth affecting management of mother; Translations: [Maternal care for excessive growth, unspecified trimester, not applicable or unspecified] 04-15-2024 Episodic Other complications of (2 sources) size does not accord with dates; Translations: [Uterine size-date discrepancy, unspecified trimester] 05-11-2024 Episodic Other endocrine disorders (20 sources) Polycystic ovary syndrome; Translations: [Polycystic ovarian syndrome] Onset: 07-11-2023 Chronic Other endocrine disorders (1 source) Polycystic ovaries 10-11-2018 Chronic Other female genital disorders (2 sources) Vaginal discharge; Translations: [Other specified noninflammatory disorders of vagina] 12-23-2023 Episodic Other injuries and conditions due to external causes (1 source) Other specified injuries of head, initial encounter; Translations: [OTH SPEC INJURIES HEAD INITIAL ENC] Onset: 06-18-2022 Episodic Other nutritional; endocrine; and metabolic disorders (20 sources) Metabolic syndrome X; Translations: [Metabolic syndrome] Onset: 07-11-2023 07-11-2023 Chronic Other nutritional; endocrine; and metabolic disorders (20 sources) Morbid obesity; Translations: [Morbid (severe) obesity due to excess calories] Onset: 07-11-2023 07-11-2023 Chronic Other and delivery including normal (10 sources) Second trimester ; Translations: [Encounter for supervision of normal , unspecified, second trimester] 01-22-2024 Episodic Other screening for suspected conditions (not mental disorders or infectious disease) (20 sources) Encounter for screening for malignant neoplasm of cervix; Translations: [Patient encounter status] Onset: 01-31-2022 Episodic Residual codes; unclassified (2 sources) Gestation period, 18 weeks; Translations: [18 weeks gestation of ] 01-22-2024 Episodic Residual codes; unclassified (2 sources) Gestation period, 22 weeks; Translations: [22 weeks gestation of ] 02-19-2024 Episodic Residual codes; unclassified (2 sources) Gestation period, 14 weeks; Translations: [14 weeks gestation of ] 12-23-2023 Episodic Residual codes; unclassified (2 sources) Gestation period, 26 weeks; Translations: [26 weeks gestation of ] 03-18-2024 Episodic Residual codes; unclassified (2 sources) Gestation period, 30 weeks; Translations: [30 weeks gestation of ] 04-15-2024 Episodic Residual codes; unclassified (2 sources) Gestation period, 32 weeks; Translations: [32 weeks gestation of ] 04-29-2024 Episodic Residual codes; unclassified (2 sources) Gestation period, 34 weeks; Translations: [34 weeks gestation of ] 05-11-2024 Episodic Unclassified (1 source) OPENED IN ERROR Unclassified (16 sources) OB Reminders Onset: 02-16-2024 02-16-2024 Past or Other Problems Problem Classification Problem Date Documented Date Episodic/Chronic Other connective tissue disease (4 sources) Pain in right finger(s); Translations: [PAIN IN RIGHT FINGERS] Onset: 08-23-2021 Episodic Other skin disorders (1 source) Hyperkeratosis Onset: 05-31-2014 10-11-2018 Episodic Other skin disorders (1 source) Trichilemmal cyst Onset: 12-31-2014 10-11-2018 Episodic Other upper respiratory infections (20 sources) Pharyngitis; Translations: [Acute pharyngitis, unspecified] Onset: 07-11-2023 07-11-2023 Episodic Viral infection (20 sources) Herpes labialis; Translations: [Herpesviral vesicular dermatitis] Onset: 04-15-2023 04-15-2023 Episodic Results Test Name Value Interpretation Reference Range Facility US OB FOLLOW UP TRANSABDOMIN AL APPROACHon 04-29-2024 US OB FOLLOW UP TRANSABDOMINAL APPROACH TITLE OF EXAM: OB Ultrasound: REASON FOR EXAM: LGA COMPARISON: 04/06/2024 TECHNIQUE: Grayscale and M-mode Doppler imaging is performed. FINDINGS: heart rate: 136 bpm MARIA ANTONIA: 20.6 cm (8.4-24.4) BPD: 9.0 cm HC: 32.6 cm AC: 30.2 cm FL: 6.5 cm GA for sonogram: 34.7 wks (32.2-37.1) JUDE: 06/19/2024 Weight Estimate: Weight: 2439 gm / 5 lbs, 6 oz (7322-9688 gm) [place] Normal: 2099 gm (1954-3683 gm) [place] Wt%: 89% for 32.7 wks Limited for: Growth Presentation: Cephalic Lie: Longitudinal Amniotic Fluid: 20.6 cm Between 5th and 95 percentile. Largest Fluid Pocket: 6.6 cm Heart Rate: 136 bpm Somatic Motion: Yes IMPRESSION: Single live intrauterine estimated by ultrasound at 35 weeks 1 day. Dictated and transcribed 04/29/24/dpd This report has been electronically signed and approved by the interpreting radiologist. Normal Not Available Comment on above: Order Comment: US OB SCAN FOR GROWTH Estimated Date of Delivery: 06/19/24 Gestational Age as of 04/15/2024: 30w5d Urinalysis macro (dipstick) panel (U)on 04-29-2024 Bilirubin, UA Negative Negative - 4(70) +++ mg/dL [facility] Blood, UA Negative Negative - 50 Tres/mcL [facility] Clarity, UA Clear [facility] Color, UA Yellow [facility] Glucose, UA Negative Negative - 1999(110) ++++ mg/dL [facility] Interpretation and review of laboratory results Normal [facility] Ketones, UA Negative Negative - 160(16) ++++ mg/dL [facility] Leukocytes, UA Negative Negative - 500+++ Abigail/mcL [facility] Nitrite, UA Negative Negative - Positive [facility] pH, UA 6 5 - 9 [facility] Protein, UA Negative Negative - 1999(20) ++++ mg/dL [facility] Spec Grav, UA 1.03 1 - 1.03 [facility] Urobilinogen, UA 0.2 0.2 - 12 mg/dL [facility] Urinalysis macro (dipstick) panel (U)on 04-15-2024 Bilirubin, UA Negative Negative - 4(70) +++ mg/dL [facility] Blood, UA Positive Negative - 50 Tres/mcL [facility] Comment on above: trace-lysed Clarity, UA Clear [facility] Color, UA Yellow [facility] Glucose, UA Negative Negative - 1999(110) ++++ mg/dL [facility] Interpretation and review of laboratory results Abnormal [facility] Ketones, UA Negative Negative - 160(16) ++++ mg/dL [facility] Leukocytes, UA Negative Negative - 500+++ Abigail/mcL [facility] Nitrite, UA Negative Negative - Positive [facility] pH, UA 5 5 - 9 [facility] Protein, UA Trace Negative - 1999(20) ++++ mg/dL [facility] Spec Grav, UA 1.03 1 - 1.03 [facility] Urobilinogen, UA 0.2 0.2 - 12 mg/dL [facility] Urinalysis macro (dipstick) panel (U)on 03-18-2024 Bilirubin, UA Negative Negative - 4(70) +++ mg/dL [facility] Blood, UA Negative Negative - 50 Tres/mcL [facility] Clarity, UA Clear [facility] Color, UA Yellow [facility] Glucose, UA Negative Negative - 1999(110) ++++ mg/dL [facility] Interpretation and review of laboratory results Normal [facility] Ketones, UA Negative Negative - 160(16) ++++ mg/dL [facility] Leukocytes, UA Negative Negative - 500+++ Abigail/mcL [facility] Nitrite, UA Negative Negative - Positive [facility] pH, UA 6 5 - 9 [facility] Protein, UA Negative Negative - 1999(20) ++++ mg/dL [facility] Spec Grav, UA 1.015 1 - 1.03 [facility] Urobilinogen, UA 0.2 0.2 - 12 mg/dL [facility] GLUCOSE TOLERANCE 3 HOURon 1 05-18-2023 GLUCOSE TOLERANCE 3 HOUR mg/dL [facility] Comment on above: GLU FAST 80 (<95) Co l: 03/17/24 0736 GLU 1HR 128 (<180) Col: 03/17/24 0845 GLU 2HR 110 (<155) Col: 03/17/24 0940 GLU 3HR 64 (<140) Col: 03/17/24 1039 [facility] ALL CBC WITH AUTO DIFFon BASOPHILS ABSOLUTE AUTO 0 [facility] Basophils/100 WBC (Bld) 0.2 % 0.2 - 2.0 % [facility] Eosinophils/100 WBC (Bld) 0.7 % Low 0.9 - 7.0 % [facility] Erythrocyte distribution width (RBC) [Ratio] 13.6 % 11.0 - 15.0 % [facility] Hematocrit (Bld) [Volume fraction] 34.7 % Low 36.0 - 48.0 % [facility] Hemoglobin (Bld) [Mass/Vol] 11.4 g/dL Low 12.0 - 16.0 g/dL [facility] IMMATURE GRANULOCYTES ABS AUTO 0.07 High [facility] Immature granulocytes/100 WBC (Bld) 0.6 % High 0.0 - 0.5 % [facility] Interpretation and review of laboratory results Abnormal [facility] LYMPHOCYTES ABSOLUTE AUTO 2.1 [facility] Lymphocytes/100 WBC (Bld) 17.3 % Low 20.5 - 60.0 % [facility] MCH (RBC) [Entitic mass] 30 pg 26.7 - 34.0 pg [facility] MCHC (RBC) [Mass/Vol] 32.9 g/dL 29.9 - 35.2 g/dL [facility] MCV (RBC) [Entitic vol] 91.3 fL 81.0 - 99.0 fL [facility] MONOCYTES ABSOLUTE AUTO 0.6 [facility] Monocytes/100 WBC (Bld) 5 % 1.7 - 12.0 % [facility] NEUTROPHILS ABSOLUTE AUTO 9.2 High [facility] Neutrophils/100 WBC (Bld) 76.2 % High 43.0 - 75.0 % [facility] Platelet mean volume (Bld) [Entitic vol] 11.3 fL 9.5 - 13.5 fL [facility] TBH EO # 0.1 [facility] PLT 240 [facility] TB RBC 3.8 Low [facility] WBC 12.1 High [facility] Urinalysis macro (dipstick) panel (U)on 02-19-2024 Bilirubin, UA Negative Negative - 4(70) +++ mg/dL [facility] Blood, UA Negative Negative - 50 Tres/mcL [facility] Clarity, UA Clear [facility] Color, UA Yellow [facility] Glucose, UA Negative Negative - 1999(110) ++++ mg/dL [facility] Interpretation and review of laboratory results Normal [facility] Ketones, UA Negative Negative - 160(16) ++++ mg/dL [facility] Leukocytes, UA Negative Negative - 500+++ Abigail/mcL [facility] Nitrite, UA Negative Negative - Positive [facility] pH, UA 5.5 5 - 9 [facility] Protein, UA Negative Negative - 1999(20) ++++ mg/dL [facility] Spec Grav, UA 1.01 1 - 1.03 [facility] Urobilinogen, UA 0.2 0.2 - 12 mg/dL [facility] Urinalysis macro (dipstick) panel (U)on 01-22-2024 Bilirubin, UA Negative Negative - 4(70) +++ mg/dL [facility] Blood, UA Negative Negative - 50 Tres/mcL [facility] Clarity, UA Clear [facility] Color, UA Yellow [facility] Glucose, UA Negative Negative - 1999(110) ++++ mg/dL [facility] Interpretation and review of laboratory results Abnormal [facility] Ketones, UA Positive Negative - 160(16) ++++ mg/dL [facility] Comment on above: 15 Leukocytes, UA Negative Negative - 500+++ Abigail/mcL [facility] Nitrite, UA Negative Negative - Positive [facility] pH, UA 6 5 - 9 [facility] Protein, UA Negative Negative - 1999(20) ++++ mg/dL [facility] Spec Grav, UA 1.03 1 - 1.03 [facility] Urobilinogen, UA 0.2 0.2 - 12 mg/dL [facility] Urinalysis macro (dipstick) panel (U)on 12-23-2023 Bilirubin, UA Negative Negative - 4(70) +++ mg/dL [facility] Blood, UA Negative Negative - 50 Tres/mcL [facility] Clarity, UA Clear [facility] Color, UA Yellow [facility] Glucose, UA Negative Negative - 1999(110) ++++ mg/dL [facility] Interpretation and review of laboratory results Normal [facility] Ketones, UA Negative Negative - 160(16) ++++ mg/dL [facility] Leukocytes, UA Negative Negative - 500+++ Abigail/mcL [facility] Nitrite, UA Negative Negative - Positive [facility] pH, UA 6.0 5 - 9 [facility] Protein, UA Negative Negative - 1999(20) ++++ mg/dL [facility] Spec Grav, UA 1.020 1 - 1.03 [facility] Urobilinogen, UA 0.2 0.2 - 12 mg/dL [facility] ALL CBC WITH AUTO DIFFon BASOPHILS ABSOLUTE AUTO 0.1 [facility] Basophils/100 WBC (Bld) 0.4 % 0.2 - 2.0 % [facility] Eosinophils/100 WBC (Bld) 0.5 % Low 0.9 - 7.0 % [facility] Erythrocyte distribution width (RBC) [Ratio] 13.4 % 11.0 - 15.0 % [facility] Hematocrit (Bld) [Volume fraction] 37.6 % 36.0 - 48.0 % [facility] Hemoglobin (Bld) [Mass/Vol] 12.6 g/dL 12.0 - 16.0 g/dL [facility] IMMATURE GRANULOCYTES ABS AUTO 0.05 High [facility] Immature granulocytes/100 WBC (Bld) 0.4 % 0.0 - 0.5 % [facility] Interpretation and review of laboratory results Abnormal [facility] LYMPHOCYTES ABSOLUTE AUTO 2.5 [facility] Lymphocytes/100 WBC (Bld) 19.4 % Low 20.5 - 60.0 % [facility] MCH (RBC) [Entitic mass] 29.3 pg 26.7 - 34.0 pg [facility] MCHC (RBC) [Mass/Vol] 33.5 g/dL 29.9 - 35.2 g/dL [facility] MCV (RBC) [Entitic vol] 87.4 fL 81.0 - 99.0 fL [facility] MONOCYTES ABSOLUTE AUTO 0.7 [facility] Monocytes/100 WBC (Bld) 5.6 % 1.7 - 12.0 % [facility] NEUTROPHILS ABSOLUTE AUTO 9.6 High [facility] Neutrophils/100 WBC (Bld) 73.7 % 43.0 - 75.0 % [facility] Platelet mean volume (Bld) [Entitic vol] 11.5 fL 9.5 - 13.5 fL [facility] TBH EO # 0.1 [facility] TB PLT 254 [facility] RBC 4.30 [facility] WBC 13.0 High [facility] CBC AUTO DIFFon 08-07-2022 BASO # 0.1 103/ul Normal 0.0-0.1 [facility] Comment on above: Performed By: #### C BC ####[facility] [address] [place] [address]Dr. Rasta Gatica Basophils/100 WBC (Bld) 0.4 % Normal 0.2-2.0 [facility] Comment on above: Performed By: #### C BC ####[facility] [address] [place] [address]Dr. Rasta Gatica EO # 0.2 103/ul Normal 0.0-0.7 [facility] Comment on above: Performed By: #### C BC ####[facility] [address] [place] [address]Dr. Rasta Gatica Eosinophils/100 WBC (Bld) 1.3 % Normal 0.9-7.0 [facility] Comment on above: Performed By: #### C BC ####[facility] [address] [place], [place] [address]Dr. Rasta Gatica Erythrocyte distribution width (RBC) [Ratio] 12.7 % Normal 11.0-15.0 [facility] Comment on above: Performed By: #### C BC ####[facility] [address] [place] [address]Dr. Rasta Gatica Hematocrit (Bld) [Volume fraction] 40.3 % Normal 36.0-48.0 [facility] Comment on above: Performed By: #### C BC ####[facility] [address] [place], [place] [address]Dr. Rasta Gatica Hemoglobin (Bld) [Mass/Vol] 13.1 g/dL Normal 12.0-16.0 [facility] Comment on above: Performed By: #### C BC ####[facility] [address] [place], [place] [address]Dr. Rasta Gatica IG # 0.03 10e3/ul Normal 0.00-0.03 [facility] Comment on above: Performed By: #### C BC ####[facility] [address] [place], [place] [address]Dr. Rasta En IG % 0.3 % Normal 0.0-0.5 [facility] Comment on above: Performed By: #### C BC ####[facility] [address] [place], [place] [address]Dr. Rasta En LYMPH # 2.9 103/ul Normal 1.2-3.8 [facility] Comment on above: Performed By: #### C BC ####[facility] [address] [place], [place] [address]Dr. Karrieroopa Gatica Lymphocytes/100 WBC (Bld) 25.5 % Normal 20.5-60.0 [facility] Comment on above: Performed By: #### C BC ####[facility] [address] [place], [place] [address]Dr. Rasta Gatica MANUAL DIFF REQ NO Normal [facility] Comment on above: Performed By: #### C BC ####[facility] [address] [place], [place] [address]Dr. Ratsa Gatica MCH (RBC) [Entitic mass] 29.1 pg Normal 26.7-34.0 [facility] Comment on above: Performed By: #### C BC ####[facility] [address] [place] [address]Dr. Rasta Gatica MCHC (RBC) [Mass/Vol] 32.5 g/dL Normal 29.9-35.2 [facility] Comment on above: Performed By: #### C BC ####[facility] [address] [place], [place] [address]Dr. Rasta En MCV (RBC) [Entitic vol] 89.6 fL Normal 81.0-99.0 [facility] Comment on above: Performed By: #### C BC ####[facility] [address] [place], [place] [address]DrHany Gatica MONO # 0.8 103/ul Normal 0.3-0.8 [facility] Comment on above: Performed By: #### C BC ####[facility] [address] [place], [place] [address]Dr. Rasta Gatica Monocytes/100 WBC (Bld) 7.2 % Normal 1.7-12.0 [facility] Comment on above: Performed By: #### C BC ####[facility] [address] [place], [place] [address]Dr. Rasta Gatica NEUT # 7.3 103/ul Critically high 1.4-6.5 [facility] Comment on above: Performed By: #### C BC ####[facility] [address] [place], [place] [address]Dr. Rasta Gatica Neutrophils/100 WBC (Bld) 65.3 % Normal 43.0-75.0 [facility] Comment on above: Performed By: #### C BC ####[facility] [address] [place], [place] [address]Dr. Rasta En Platelet mean volume (Bld) [Entitic vol] 10.7 fL Normal 9.5-13.5 [facility] Comment on above: Performed By: #### C BC ####[facility] [address] [place], [place] [address]Bu. Rasta Gatica PLT 279 103/ul Normal 150-450 [facility] Comment on above: Performed By: #### C BC ####[facility] [address] [place], [place] [address]Fk. Karrieroopa En RBC 4.50 106/ul Normal 4.20-5.40 [facility] Comment on above: Performed By: #### C BC ####[facility] [address] [place] [id number]. Rasta Gatica WBC 11.2 103/ul Critically high 4.0-11.0 [facility] Comment on above: Performed By: #### C BC ####[facility] [address] [place] [id number]. Rasta Gatica GLYCOHEMOGLOBIN A1Con 2022 ADA RECOMMENDATION SEE BELOW Normal [facility] Comment on above: Result Comment: ADA RECOMMENDED LIMIT 4.0 - 6.0 ADA THERAPEUTIC TARGET < 7.0 ACTION SUGGESTED > 7.0 Performed By: #### A 1C #### [facility] [address] [address] [address] Rasta Gatica Glucose [Mass/Vol] 103 mg/dL Normal [facility] Comment on above: Performed By: #### A 1C #### [facility] [address] [address] [address] Rasta Gatica HbA1c (Bld) [Mass fraction] 5.2 % Normal 4.5-6.2 [facility] Comment on above: Performed By: #### A 1C #### [facility] [address] [address] [address] Rasta Gatica LIPID PROFILEon 08-07-2022 CHOL-HDL RATIO NORM SEE BELOW Normal [facility] Comment on above: Result Comment: 3.3 - 4.4 LOW RISK 4.4 - 7.1 AVERAGE RISK 7.1 - 11.0 MODERATE RISK >11.0 HIGH RISK Performed By: #### L IPID, BMP, TSH, LIVER #### [facility] [address] [address] [address] Rasta Gatica Cholesterol [Mass/Vol] 234 mg/dL Critically high <=200 [facility] Comment on above: Performed By: #### L IPID, BMP, TSH, LIVER #### [facility] [address] [address] [address] Rasta Gatica Cholesterol in HDL [Mass/Vol] 67 mg/dL Critically high 40-60 [facility] Comment on above: Performed By: #### L IPID, BMP, TSH, LIVER #### [facility] [address] [address] [address] Rasta Gatica Cholesterol in LDL [Mass/Vol] 151.8 mg/dL Normal [facility] Comment on above: Performed By: #### L IPID, BMP, TSH, LIVER #### [facility] [address] [place] [address] Dr. Rasta Gatica Cholesterol.total/C holesterol in HDL [Mass ratio] 3.5 {ratio} Normal [facility] Comment on above: Performed By: #### L IPID, BMP, TSH, LIVER #### [facility] [address] [place] [address] Dr. Rasta Gatica HDL NORMAL > or = 60 mg/dl - LO W CARDIOVASCULAR RISK <40 mg/dl - HIGH CARDIOVASCULAR RISK Normal [facility] Comment on above: Performed By: #### L IPID, BMP, TSH, LIVER #### [facility] [address] [place] [address] Dr. Rasta Gatica LDL CALC NORMAL SEE BELOW Normal [facility] Comment on above: Result Comment: <100 mg/dl OPTIMAL 100 - 129 mg/dl NEAR OR ABOVE OPTIMAL 130 - 159 mg/dl BORDERLINE HIGH 160 - 189 mg/dl HIGH >190 mg/dl VERY HIGH Performed By: #### L IPID, BMP, TSH, LIVER #### [facility] [address] [place] [address] Dr. Rasta Gatica Triglyceride [Mass/Vol] 76 mg/dL Normal <=150 [facility] Comment on above: Performed By: #### L IPID, BMP, TSH, LIVER #### [facility] [address] [place] [address] Dr. Rasta Gatica VLDL CALC 15.2 mg/dL Normal [facility] Comment on above: Performed By: #### L IPID, BMP, TSH, LIVER #### [facility] [address] [place] [address] Dr. Rasta Gatica LIVER PROFILEon 08-07-2022 Albumin [Mass/Vol] 3.8 g/dL Normal 3.4-5.0 [facility] Comment on above: Performed By: #### L IPID, BMP, TSH, LIVER #### [facility] [address] [place] [address] Dr. Rasta Gatica Albumin/Globulin [Mass ratio] 1.0 {ratio} Normal [facility] Comment on above: Performed By: #### L IPID, BMP, TSH, LIVER #### [facility] [address] [place] [address] Dr. Rasta Gatica ALP [Catalytic activity/Vol] 98 U/L Normal 46-116 [facility] Comment on above: Performed By: #### L IPID, BMP, TSH, LIVER #### [facility] [address] [place] [address] Dr. Rasta Gatica ALT [Catalytic activity/Vol] 24 U/L Normal 14-59 [facility] Comment on above: Performed By: #### L IPID, BMP, TSH, LIVER #### [facility] [address] [place] [address] Dr. Rasta Gatica AST [Catalytic activity/Vol] 19 U/L Normal 15-37 [facility] Comment on above: Performed By: #### L IPID, BMP, TSH, LIVER #### [facility] [address] [place] [address] Dr. Rasta Gatica BILI, CONJUGATED 0.1 mg/dL Normal 0.0-0.2 [facility] Comment on above: Performed By: #### L IPID, BMP, TSH, LIVER #### [facility] [address] [place] [address] Dr. Rasta Gatica Bilirubin [Mass/Vol] 0.4 mg/dL Normal 0.2-1.0 [facility] Comment on above: Performed By: #### L IPID, BMP, TSH, LIVER #### [facility] [address] [address] [address] Rasta Gatica Globulin (S) [Mass/Vol] 3.8 g/dL Normal [facility] Comment on above: Performed By: #### L IPID, BMP, TSH, LIVER #### [facility] [address] [place] [address] Dr. Rasta Gatica Protein [Mass/Vol] 7.6 g/dL Normal 6.4-8.2 [facility] Comment on above: Performed By: #### L IPID, BMP, TSH, LIVER #### [facility] [address] [place] [address] Dr. Rasta Gatica PROF CHEM 8 (BAS METB)on Anion gap [Moles/Vol] 9.6 mmol/L Normal [facility] Comment on above: Performed By: #### L IPID, BMP, TSH, LIVER #### [facility] [address] [place] [address] Dr. Rasta Gatica Calcium [Mass/Vol] 9.8 mg/dL Normal 8.5-10.1 [facility] Comment on above: Performed By: #### L IPID, BMP, TSH, LIVER #### [facility] [address] [place] [address] Dr. Rasta Gatica Chloride [Moles/Vol] 106 mmol/L Normal 98-107 [facility] Comment on above: Performed By: #### L IPID, BMP, TSH, LIVER #### [facility] [address] [place] [address] Dr. Rasta Gatica CO2 [Moles/Vol] 27.0 mmol/L Normal 21.0-32.0 [facility] Comment on above: Performed By: #### L IPID, BMP, TSH, LIVER #### [facility] [address] [place] [address] Dr. Rasta Gatica Creatinine [Mass/Vol] 0.66 mg/dL Normal 0.55-1.02 [facility] Comment on above: Performed By: #### L IPID, BMP, TSH, LIVER #### [facility] [address] [address] [address] Rasta Gatica EGFR-AF ESTONIAN >60 Normal >=60 [facility] Comment on above: Performed By: #### L IPID, BMP, TSH, LIVER #### [facility] [address] [address] [address] Rasta Gatica EGFR-NON AF ESTONIAN >60 Normal >=60 [facility] Comment on above: Performed By: #### L IPID, BMP, TSH, LIVER #### [facility] [address] [address] [address] Rasta Gatica Glucose [Mass/Vol] 88 mg/dL Normal 74-106 [facility] Comment on above: Performed By: #### L IPID, BMP, TSH, LIVER #### [facility] [address] [place] [address] Dr. Rasta Gatica Potassium [Moles/Vol] 4.6 mmol/L Normal 3.5-5.1 [facility] Comment on above: Performed By: #### L IPID, BMP, TSH, LIVER #### [facility] [address] [address] [address] Rasta Gatica Sodium [Moles/Vol] 138 mmol/L Normal 136-145 [facility] Comment on above: Performed By: #### L IPID, BMP, TSH, LIVER #### [facility] [address] [address] [address] Rasta Gatica Urea nitrogen [Mass/Vol] 10.0 mg/dL Normal 7.0-18.0 [facility] Comment on above: Performed By: #### L IPID, BMP, TSH, LIVER #### [facility] [address] [address] [address] Rasta Gatica Urea nitrogen/Creatinine [Mass ratio] 15.2 mg/mg Normal [facility] Comment on above: Performed By: #### L IPID, BMP, TSH, LIVER #### [facility] [address] [address] [address] Rasta Gatica TSHon 08-07-2022 TSH 1.521 uIU/mL Normal 0.358-3.[address] [facility] Comment on above: Performed By: #### L IPID, BMP, TSH, LIVER #### [facility] [address] [address] HEAD WO CONon [...] authenticated by: GLENN PACHECO Date: 2022-06-14 20:18 [facility] PAP ACOG PANEL 2: 22 to 30on 02-08-2022 . . Normal [facility] Comment on above: Performed By: #### [id number] #### [facility] [address] [address] [address] Rasta Gatica Age Gdln ACOG Testing 21-29 Normal [facility] Comment on above: Performed By: #### 4 [id number] #### [facility] [address] [address] [address] Rasta Gatica DIAGNOSIS: Comment Normal [facility] Comment on above: Result Comment: NEGA TIVE FOR INTRAEPITHELIAL LESION OR MALIGNANCY. Performed By: #### 4 [id number] #### [facility] [address] [address] [address] Rasta Gatica Methodology: Comment Normal [facility] Comment on above: Result Comment: This liquid based ThinPrep(R) pap test was screened with the use of an image guided system. Performed By: #### 4 [id number] #### [facility] [address] [address] [address] Rasta Gatica Note: Comment Normal [facility] Comment on above: Result Comment: The Pap smear is a screening test designed to aid in the detection of premalignant and malignant conditions of the uterine cervix. It is not a diagnostic procedure and should not be used as the sole means of detecting cervical cancer. Both false-positive and false-negative reports do occur. . Performed By: #### 4 [id number] #### [facility] [address] [place] [address] Dr. Rasta Gatica Performed by: Comment Normal [facility] Comment on above: Result Comment: Darline Terry, Street Openings Inspector (ASCP) Performed By: #### 4 [id number] #### [facility] [address] [place] [address] Dr. Rasta Gatica Reflex Criteria: Comment Normal [facility] Comment on above: Result Comment: The HPV DNA reflex criteria were not met with this specimen result therefore, no HPV testing was performed. . Performed By: #### 4 [id number] #### [facility] [address] [place] [address] Dr. Rasta Gatica Specimen adequacy: Comment Normal [facility] Comment on above: Result Comment: Sati sfactory for evaluation. Endocervical and/or squamous metaplastic cells (endocervical component) are present. Performed By: #### 4 [id number] #### [facility] [address] [place] [address] Dr. Rasta Gatica CBC AUTO DIFFon 02-02-2022 BASO # 0.0 103/ul Normal 0.0-0.1 [facility] Comment on above: Performed By: #### C BC ####[facility] [address] [place], [place] [address]Dr. Rasta Gatica Basophils/100 WBC (Bld) 0.4 % Normal 0.2-2.0 [facility] Comment on above: Performed By: #### C BC ####[facility] [address] [place], [place] [address]Dr. Rasta Gatica EO # 0.1 103/ul Normal 0.0-0.7 [facility] Comment on above: Performed By: #### C BC ####[facility] [address] [place], [place] [address]Dr. Rasta Gatica Eosinophils/100 WBC (Bld) 1.3 % Normal 0.9-7.0 [facility] Comment on above: Performed By: #### C BC ####[facility] [address] [place] [address]Dr. Rasta Gatica Erythrocyte distribution width (RBC) [Ratio] 13.2 % Normal 11.0-15.0 [facility] Comment on above: Performed By: #### C BC ####[facility] [address] [place] [address]Dr. Rasta Gatica Hematocrit (Bld) [Volume fraction] 40.8 % Normal 36.0-48.0 [facility] Comment on above: Performed By: #### C BC ####[facility] [address] [place] [address]Dr. Rasta Gatica Hemoglobin (Bld) [Mass/Vol] 13.2 g/dL Normal 12.0-16.0 [facility] Comment on above: Performed By: #### C BC ####[facility] [address] [place] [address]Dr. Rasta Gatica IG # 0.03 10e3/ul Normal 0.00-0.03 [facility] Comment on above: Performed By: #### C BC ####[facility] [address] [place] [address]Dr. Rasta Gatica IG % 0.3 % Normal 0.0-0.5 [facility] Comment on above: Performed By: #### C BC ####[facility] [address] [place] [address]Dr. Rasta Gatica LYMPH # 2.8 103/ul Normal 1.2-3.8 [facility] Comment on above: Performed By: #### C BC ####[facility] [address] [place] [address]Dr. Rasta Gatica Lymphocytes/100 WBC (Bld) 29.1 % Normal 20.5-60.0 [facility] Comment on above: Performed By: #### C BC ####[facility] [address] [place] [address]Dr. Rasta En MANUAL DIFF REQ NO Normal [facility] Comment on above: Performed By: #### C BC ####[facility] [address] [place] [address]Dr. Rasta Gatica MCH (RBC) [Entitic mass] 29.1 pg Normal 26.7-34.0 [facility] Comment on above: Performed By: #### C BC ####[facility] [address] [place] [address]Dr. Rasta En MCHC (RBC) [Mass/Vol] 32.4 g/dL Normal 29.9-35.2 [facility] Comment on above: Performed By: #### C BC ####[facility] [address] [place], [place] [address]Dr. Rasta En MCV (RBC) [Entitic vol] 90.1 fL Normal 81.0-99.0 [facility] Comment on above: Performed By: #### C BC ####[facility] [address] [place], [place] [address]Dr. Rasta En MONO # 0.6 103/ul Normal 0.3-0.8 [facility] Comment on above: Performed By: #### C BC ####[facility] [address] [place], [place] [address]Dr. Karrieroopa Gatica Monocytes/100 WBC (Bld) 6.6 % Normal 1.7-12.0 [facility] Comment on above: Performed By: #### C BC ####[facility] [address] [place] [address]Dr. Rasta En NEUT # 6.0 103/ul Normal 1.4-6.5 [facility] Comment on above: Performed By: #### C BC ####[facility] [address] [place], [place] [address]Dr. Karrieroopa Gatica Neutrophils/100 WBC (Bld) 62.3 % Normal 43.0-75.0 [facility] Comment on above: Performed By: #### C BC ####[facility] [address] [place] [address]Dr. Rasta Gatica Platelet mean volume (Bld) [Entitic vol] 11.4 fL Normal 9.5-13.5 [facility] Comment on above: Performed By: #### C BC ####[facility] [address] [place] [address]Dr. Rasta Gatica PLT 264 103/ul Normal 150-450 [facility] Comment on above: Performed By: #### C BC ####[facility] [address] [place] [address]Dr. Rasta Gatica RBC 4.53 106/ul Normal 4.20-5.40 [facility] Comment on above: Performed By: #### C BC ####[facility] [address] [place] [address]Dr. Rasta Gatica WBC 9.7 103/ul Normal 4.0-11.0 [facility] Comment on above: Performed By: #### C BC ####[facility] [address] [place] [address]DrHany Gatica GLYCOHEMOGLOBIN A1Con 2021 ADA RECOMMENDATION SEE BELOW Normal [facility] Comment on above: Result Comment: ADA RECOMMENDED LIMIT 4.0 - 6.0 ADA THERAPEUTIC TARGET < 7.0 ACTION SUGGESTED > 7.0 Performed By: #### A 1C #### [facility] [address] [address] [address] Rasta Gatica Glucose [Mass/Vol] 120 mg/dL Normal [facility] Comment on above: Performed By: #### A 1C #### [facility] [address] [address] [address] Rasta Gatica HbA1c (Bld) [Mass fraction] 5.8 % Normal 4.5-6.2 [facility] Comment on above: Performed By: #### A 1C #### [facility] [address] [address] [address] Rasta Gatica LIPID PROFILEon 02-02-2022 CHOL-HDL RATIO NORM SEE BELOW Normal [facility] Comment on above: Result Comment: 3.3 - 4.4 LOW RISK 4.4 - 7.1 AVERAGE RISK 7.1 - 11.0 MODERATE RISK >11.0 HIGH RISK Performed By: #### L IVER, TSH, BMP, LIPID ####[facility] [address] [place] [id number]. Rasta Gatica Cholesterol [Mass/Vol] 210 mg/dL Critically high <=200 [facility] Comment on above: Performed By: #### L IVER, TSH, BMP, LIPID ####[facility] [address] [place] [id number]. Rasta Gatica Cholesterol in HDL [Mass/Vol] 61 mg/dL Critically high 40-60 [facility] Comment on above: Performed By: #### L IVER, TSH, BMP, LIPID ####[facility] [address] [place] [address]Dr. Rasta Gatica Cholesterol in LDL [Mass/Vol] 114.4 mg/dL Normal [facility] Comment on above: Performed By: #### L IVER, TSH, BMP, LIPID ####[facility] [address] [place] [address]Dr. Rasta Gatica Cholesterol.total/C holesterol in HDL [Mass ratio] 3.4 {ratio} Normal [facility] Comment on above: Performed By: #### L IVER, TSH, BMP, LIPID ####[facility] [address] [place] [id number]. Rasta Gatica HDL NORMAL > or = 60 mg/dl - LO W CARDIOVASCULAR RISK <40 mg/dl - HIGH CARDIOVASCULAR RISK Normal [facility] Comment on above: Performed By: #### L IVER, TSH, BMP, LIPID ####[facility] [address] [place] [id number]. Rasta Gatica LDL CALC NORMAL SEE BELOW Normal [facility] Comment on above: Result Comment: <100 mg/dl OPTIMAL 100 - 129 mg/dl NEAR OR ABOVE OPTIMAL 130 - 159 mg/dl BORDERLINE HIGH 160 - 189 mg/dl HIGH >190 mg/dl VERY HIGH Performed By: #### L IVER, TSH, BMP, LIPID ####[facility] [address] [place] [id number]. Rasta Gatica Triglyceride [Mass/Vol] 173 mg/dL Critically high <=150 [facility] Comment on above: Performed By: #### L IVER, TSH, BMP, LIPID ####[facility] [address] [place] [address]Dr. Rasta Gatica VLDL CALC 34.6 mg/dL Normal [facility] Comment on above: Performed By: #### L IVER, TSH, BMP, LIPID ####[facility] [address] [place] [address]Dr. Rasta Gatica LIVER PROFILEon 02-02-2022 Albumin [Mass/Vol] 3.5 g/dL Normal 3.4-5.0 [facility] Comment on above: Performed By: #### L IVER, TSH, BMP, LIPID ####[facility] [address] [place] [address]Dr. Rasta Gatica Albumin/Globulin [Mass ratio] 1.1 {ratio} Normal [facility] Comment on above: Performed By: #### L IVER, TSH, BMP, LIPID ####[facility] [address] [place] [address]Dr. Rasta Gatica ALP [Catalytic activity/Vol] 71 U/L Normal 46-116 [facility] Comment on above: Performed By: #### L IVER, TSH, BMP, LIPID ####[facility] [address] [place] [address]Dr. Rasta Gatica ALT [Catalytic activity/Vol] 15 U/L Normal 14-59 [facility] Comment on above: Performed By: #### L IVER, TSH, BMP, LIPID ####[facility] [address] [place] [address]Dr. Rasta Gatica AST [Catalytic activity/Vol] 8 U/L Critically low 15-37 [facility] Comment on above: Performed By: #### L IVER, TSH, BMP, LIPID ####[facility] [address] [place] [address]Dr. Rasta Gatica BILI, CONJUGATED <0.1 Normal 0.0-0.2 [facility] Comment on above: Performed By: #### L IVER, TSH, BMP, LIPID ####[facility] [address]lip[address] [place] [address]Dr. Rasta Gatica Bilirubin [Mass/Vol] 0.1 mg/dL Critically low 0.2-1.0 [facility] Comment on above: Performed By: #### L IVER, TSH, BMP, LIPID ####[facility] [address] [place] [address]Dr. Rasta Gatica Globulin (S) [Mass/Vol] 3.3 g/dL Normal [facility] Comment on above: Performed By: #### L IVER, TSH, BMP, LIPID ####[facility] [address] [place], [place] [address]Dr. Rasta Gatica Protein [Mass/Vol] 6.8 g/dL Normal 6.4-8.2 [facility] Comment on above: Performed By: #### L IVER, TSH, BMP, LIPID ####[facility] [address] [place], [place] [address]Dr. Rasta Gatica PROF CHEM 8 (BAS METB)on Anion gap [Moles/Vol] 10.6 mmol/L Normal [facility] Comment on above: Performed By: #### L IVER, TSH, BMP, LIPID ####[facility] [address] [place], [place] [address]Dr. Rasta Gatica Calcium [Mass/Vol] 9.2 mg/dL Normal 8.5-10.1 [facility] Comment on above: Performed By: #### L IVER, TSH, BMP, LIPID ####[facility] [address] [place], [place] [address]Dr. Rasta Gatica Chloride [Moles/Vol] 106 mmol/L Normal 98-107 [facility] Comment on above: Performed By: #### L IVER, TSH, BMP, LIPID ####[facility] [address] [place], [place] [address]Dr. Rasta Gatica CO2 [Moles/Vol] 29.3 mmol/L Normal 21.0-32.0 [facility] Comment on above: Performed By: #### L IVER, TSH, BMP, LIPID ####[facility] [address] [place] [address]Dr. Rasta Gatica Creatinine [Mass/Vol] 0.63 mg/dL Normal 0.55-1.02 [facility] Comment on above: Performed By: #### L IVER, TSH, BMP, LIPID ####[facility] [address] [place] [address]Dr. Rasta Gatica EGFR-AF ESTONIAN >60 Normal >=60 [facility] Comment on above: Performed By: #### L IVER, TSH, BMP, LIPID ####[facility] [address] [place] [address]Dr. Rasta Gatica EGFR-NON AF ESTONIAN >60 Normal >=60 [facility] Comment on above: Performed By: #### L IVER, TSH, BMP, LIPID ####[facility] [address] [place], [place] [address]Dr. Rasta Gatica Glucose [Mass/Vol] 82 mg/dL Normal 74-106 [facility] Comment on above: Performed By: #### L IVER, TSH, BMP, LIPID ####[facility] [address] [place], [place] [address]Dr. Rasta Gatica Potassium [Moles/Vol] 3.9 mmol/L Normal 3.5-5.1 [facility] Comment on above: Performed By: #### L IVER, TSH, BMP, LIPID ####[facility] [address] [place], [place] [address]Dr. Rasta Gatica Sodium [Moles/Vol] 142 mmol/L Normal 136-145 [facility] Comment on above: Performed By: #### L IVER, TSH, BMP, LIPID ####[facility] [address] [place], [place] [address]Dr. Rasta Gatica Urea nitrogen [Mass/Vol] 11.0 mg/dL Normal 7.0-18.0 [facility] Comment on above: Performed By: #### L IVER, TSH, BMP, LIPID ####[facility] [address] [place], [place] [address]GxHany Gatica Urea nitrogen/Creatinine [Mass ratio] 17.5 mg/mg Normal [facility] Comment on above: Performed By: #### L IVER, TSH, BMP, LIPID ####[facility] [address] [place], [place] [address]TbHany Gatica TSHon 02-02-2022 TSH 1.214 uIU/mL Normal 0.358-3.[address] [facility] Comment on above: Performed By: #### L IVER, TSH, BMP, LIPID ####[facility] [address] [place], [place] [address]Hj. Rasta Gatica VITAMIN D 25 OHon 02-02-2022 VIT D 25-OH 28.2 ng/mL Normal [facility] Comment on above: Performed By: #### V ITAD #### [facility] [address] [place], [place] [address] Dr. Rasta Gatica VIT D RANGES SEE BELOW Normal [facility] Comment on above: Result Comment: <20 ng/mL Vit D deficient 20 - <30 ng/mL Vit D insufficient 30 - 100 ng/mL Vit D sufficient >100 ng/mL Potential Toxicity Performed By: #### V ITAD #### [facility] [id number] Rasta Gatica MRI Hand w/o Righton [...] by Nic Duncan on 09/12/2021 1107 Normal [facility] [employer] ED Note-Physicianon 08-12-19 22 ED Note-Physician Basic Information Time Seen: Jerman MEJIA, Isi Swartz. 08/08/2021 14:38 Chief Complaint Middle finger lacerations [...] # 28 tab(s), Refills(s) 0, Pharmacy: [facility]/pharmacy #[id number], 168, cm, 08/08/21 14:35:00 EDT, Height/Length [...] concerns. Medicat (more content not included)... Normal [facility] Comment on above: Result Comment: Elec tronically Signed By: Isi Stoll PA-C\.br\Date and Time Signed: 08/08/21 18:06 EDT\.br\Electronically Co-Signed By: Sourav Stinson DO\.br\Date and Time Co-Signed: 08/11/21 07:27 EDT Animal Bite Investigationon 08-08-2021 [employer] [id number]# 1.00CD:127 [facility] Coding Summary.on 08-08-2021 Coding Summary. CD:[id number] G h0bWw+PGhlYWQ+YH3FDKA eQ87ixXIbmS1TP5vOQC9T OROEYEYSEV6FBY9vwLS8A GzcL8ZozxFu LefrtOYvQH67TLy1IHJ9a ZmnHBlteX8nvZLaA7w7Az NdSH47yC59ESkyCNCmCoH 3LjZpbjsgbWFy Y2bqEiZuvPCyNva+PHRhY mxlIHdpZHRoPScxMDAlJy RjqSdjCW9jYu6ePSSbLTF vbGxhcHNlOiBj h6hfHOAcWInpBC2sgQswT 2VibIY4TLBzm8h0Oe04vT I+JHAyEFT6mDeqRZywc78 6VxTaq1spWEO0 xTGlUUcmBPA5E72ba9C6I WYsCMBeKST4hFE5eA9ycP figkauK8BtaQKmUmQ0QAX 2wUSclX4spMuz unmcdA1xDcb+J60OAN3KK XMSVV9EYko1Z0VhMspdqS I+GQ72LJSjQP54eUAjfJE fw4qoyLx2NwNn OWRbEGY4cSfwMHcas6AmL GSaA01krOSbe9L8AHFlvK usuQHkAnQjqUA3fV5xACf jtamjy7lewjvu Uqwni1eaya16hZ72A14lI ShmJMVbJXQ5WLQnPACdoL mrah3qyS1mGq3+YMrve3m qd1yyyOq0CeTz IDMntbHnmZrsGIA4o1IvN t49Q2FphEuzs5AhEsk4fm 40kUHuy7O5gWE2HYuvIVS keM9hDDhzQvV9 SVZvFyQexD45gWPvATutG c9mdImyyFlxMP7rEHXgvs fjJMIwoK3wQWCspDGfsRc vDB7gXEEehmgi h411WaSeKGM5EFMzdMFrY 3CqyB8sYmWlQAUrUXFaC0 RuvVHuWGooE668YEmjLtN 9HYLljbJxD8Ld TJIfvPdcNwO6o7Q6Ra3Ad 8IqmclmYDM1HLrtIPE7Uy WeMhJeVbD5R2CxTog9HXV oySujQZ6xU2Pi EQQmsbhlusgqwMB3QFLcP OCecQ29hECuAPwcMf9ua1 S2n006KGQgDSXgmY12Pf4 udDogMTBwdCBU dT4ldwiki1bkyzwsEcRbS HOmXCo0VDa9SSDckPjoUg HbJZJ0IuA7UVI4aOFodC2 qtTtztzovoE1x Oyc+S27qkO6iPWJ7DBC3s assXFYetlVjHE53XU97Y6 RyPjwvdGFibGU+PGRpdiB hoPmkKT5bPzFy w7rih1TrVCwnU4JuDJKuW LwzEwz2RZRoPYV1wFO7kC 5qDOWmSWcms5H1lVG5W4Z aefRapy3pm7uv SECeJAwfV54caMFaj8Y4A QMomVE1BTOgqInkRjQxqR 93Oyc+WRClmAwxi8NdCap tq7tcz0gziRg2 OkFpXGRssyDiiCmwLLU4h 3OrRc87K65gBCmkMNNtLB IwUKMuTEPpdCtyvr7mxB8 wIi8+PGNvbCB3 kRM4gV4vLINrQlS6UWjxM 454SbJegQVwMsqbf6ebo7 xalNr1GlVnWKUdfpYjkGm zQXE2b8ImJj91 Q48lNHjbRRRqHALtOIIiV JFfcDcyfn8tcR4dJr2+PC 0ys4qaho23xX65nEN+PHR fVWG6mRrzOLal QPJfdC0zMJekCnI3TWRkA zItgI25cJUvSMvwTd3cqQ ivgGflRL8pIKAiwthxb44 3AjHjn4mcXEMd wJKvTQxgLIX4F30wb5D8K UUcRJJuWTL9bSA6eI0dnM lnbjogbGVmdDsgdmVydGl qDRdhKWuuP105 IHRvcDsnPlBhdGllbnQgT hMfQOs4P7HbLls3GFLubH wnSG3bbZVoMRhaXn5wlRi hoMtyDM0cTHGv sxyzb435LbMbl3yvEDLec WPeQKgmNIJ0C06px1S6UJ LrMQSkMKB7sNS3kO9xtMy nbjogbGVmdDsg tiEsyNecLTbqNXeqZ743U HRvcDsnPkJpcnRoIERhdG M8NK11QV95kYWlp8V3gGH 8F0NcOMRnlazd kubteLY9NTSeWRRftF72Z x4piPxhLk6rWMGbSET8BZ EouGNmW2XqkV5xKkFpSZF bHRJdM9KncAVw JWclU949HXkcAyR1QESzs fNhO1TsRAOhqFqlKgG3y0 E9Wk8FV1T0OP09GT93oJD ry9I9aKP6F6Ir KHZtbyrtgcuxwXK1YRPlE SIcbX82Fr2aoFyxYy6bHY YyGIZ4YTVivSGcQ0SswT3 yOiAjMDAwMDAw D8GxdCNjDEgpQ287AExwU sA0MLTzyqNnN1BgSGGibH ieOwN2h2Y1Ll9FJPi5LU0 9QQ12xHQvt0J5 nLM5K9WxPTFutknbdfjef TA1JJXyFRFicK64Si8dfS fxTi5eWVJxFFZ7ATWkbKU mQ4JrwB6rHlMt UKJzIRCuL1RkaHJoKFgiZ 522ZFihPfU7XLKbldNoH9 EcVVRdaIylNsK1e4A6Ef3 HZRAqRI11NCY2 cZM5CG41JC75X2UzSnnua GFibGU+PHRhYmxlIHdpZH RoPScxMDAlJyBzdHlsZT0 tWl2aUZCpKJQp lSxbtMPrEoDmc3tnJFDiX XdmKE9dzCivV2LktQO1KR Rci5v8Yq84G01eN9MbcUV +PYYosEO0fXD9 iD6lUtHaZeQ9ERlnW490C aEfdJGfEvtpm9dmr9jxlE l9MsJ3PXBnpwLgyTsdKTU 9n8ZkGx14L82k IHdpZHRoPSIxNSUiIHZhb Drwdi9tcU7aBs0+PGNvbC E2jLH0mS8cPoUqJbZ8RMg gR570MtZkqDCj Pcyps6sfe8jbhVu7EkMjT QAaxzLucOmrTMB3r9IgMx 86S2WseCqnt7XaFhn5za4 0qFWam7I1sBU1 H4JaKUMfluhinJHvjSnzL M3gNVGmmtseHNSlgN5mKG VhY2n7UvGoPeN1RAhjA0H wjlB4SJGtsCEi CEcnNYI5L11ea9T4OQPsL CJzJDA2iCV7nS3kqTbjuu ogbGVmdDsgdmVydGljYWw lBTouU458LCEg wFiqFBKkrW0pZTNgxVTxt QimUZ7jHILmagnuCkZCAR XUIONDKSpOLONZFK72GH0 2sHEdv2L2kSC4 G0TjDJArywoqkfgsoUM8Z JDbVFFzpY23nKCoPMxkAa 6yb3K3i998MJXqNDFwkH7 9Tf2lcTjwKQYt nWRMiE9surakq8cyypagM eBoCRMdRIg4XFa9AJDbyV btBzSaGBL7EcE1GVQ8kVA nsW9hdCwqijlh tD4zAct+TGCiPjuuMNj5C jwvdGQ+NUMvURV5nXlqHC kkWIKzpO2eTMOhQ3l7DjA yYqK6HRvkK2Uq NINpoppwRz39tJ7lSxJeY bR7FAwhZ0CiarW2AUVfiU YqVWgaVTD9U46nd9K3UCK cSKTjMQE3nRX0 dZ9lgGiboqqwtVYtgPvjp sQniOufMYlvTWqbE519CD UkvAljHnP6YCceUYYdUV2 4QV84bGYzy7C7 xKK8P1VuQMSndxsekbhza CC8FMDcXTRabR65uFDiUZ nnPu8ph5O1x040SCBqQGB vpR58Lh8wyGuz WCXhgKNUiR1hhnnsm0jkk vuuEqOzETPcCTp6ACb6PF OacLdqUnXlKLP7LtB6YUD 0fCOunU6nyJni hovmvK0mBjt+RmVtYWxlP Z93NF53fMJzq1D2vWR6E5 AcILNczuubbqxjqQY4MNQ cDISpiR30aTWb QRgcMh0ay6R2a349MMNuA MWprY02Md5ryVrmRZEahX QYyE9thphbp0iwcvvxNsT bGPWsMWh7FPs4 UZZyuJktVbZoSFW4CuC8Q UA4gYAreW8viDlgnhshcP 9wOyc+AF0rmgkktpV3FS7 2AB72P5LpNlvi dGFibGU+PHRhYmxlIHdpZ HRoPScxMDAlJyBzdHlsZT 2sEa8yKTCqLRFcvZeekMQ xZjSnu4hnRZZh VFsnUL7vpTntO2FahUN4W DSjn0l5Bj12N52yP8GebQ A+HQCvhNE9yIW7aK2dOzQ lSuS3BDtjC171 LsClnRTiOxooe1qli7vhn Hx0SsRaAGDmugMdiZdfIC D1k6CpDs35J32mFBcqEGC oPSIyMCUiIHZh fQbdzw6vcD4hVq9+PGNvb EW6uYK5uH2xOqFpQwO4AT jcS121GkOxhRMrBhywY15 cP8TmcZC+PHRy Jwj0ZUVdyOfkUD8vwJYuE GalKt9vCGP0NdFrDtHaCS tvQ3XpBVLnfdbiykgsaRO 4PVIjVQIfqR75 Kh9vsGfeJc5pWVRlLFK3W CNoqCCsT8XplN5qOvIjLD YoHGWlX7RdiRJlBTrxM62 5WCwdIeN0UPXw iwEsK2WnCICsgLpnDhI3q 3K1Mb2ErRjgkVCvTV4xSy YxVBb4N7FwQfd4DGOskGw yUL9zgFEmWVmc Lr6ivWevvVygZD6sWFGzt qpfi018TbXzv6yeXUIkeZ TkFYuyPHL8Q46lp2X5MPK fKIEeMKF3cOB2 lZ5uwMwderaiuBOdfQgqq uYdnPhqRVzhTGraM279XK TksJwsOuXLZto2L5DkHgp 6OJVhqYurIS9n bQAlUMylQw2vqNvzfVkuX X4fXGPkoyyub288LmBxa9 riUAEqkKKgCQaiOKP5N58 de9K6SPQzBANq QVP6qGH6jM7qaBcucullr GVmdDsgdmVydGljYWwtYW cnB798SYAqrKczQo6WFjb 1M3EuDln5GJGd vEvbQX8drFGuDTmnQd8dc OpuiGmtEN7uWQDsugdid0 36HiKur5gbEVDdmJStUGj rZAY4B69rp9G2 WZGfEEXnNIA4fHC4bC2no GlnbjogbGVmdDsgdmVydG giIUokZLloS296FKDvoSm nPlBheWVyOjwv dGQ+IS63bw66Q8ElLrjbR jm5YYTtNZZ6vLZ6uQ5rYA ZlDOaza9P2jVY0V4TmpxH pin3rn0sdDHKy ZTog (more content not included)... Normal [facility] Consent for Treatmenton Consent for Treatment [id number] [email or web address]:127 Normal [facility] Discharge Instructionson Discharge Instructions [id number]# 1.00CD:127 Normal [facility] ED Clinical Summaryon 2021 ED Clinical Summary [address] [address] ED Clinical Summary Person Information Name: LIZ KENYON [facility] Age: 26 Years : 1995 Sex: Female Language: Hungarian PCP: MICHAEL HELMS MD Marital Status: Phone: [phone] Visit Id: Visit Reason: Dog bite: hand; [...] 08/08/2021 15:44:14 08/08/2021 15:44:14 08/08/2021 15:44:14 ADDRESS: [facility] [id number] PHYS DOC NOTES: MEDICAL INFORMATION: Prescriptions Given: New Medications [id number], [address], [place] [id number], [phone] amoxicillin-clavulana te (Augmentin 875 mg oral tablet) [...] PATIENT EDUCATION INFORMATION: Instructions: Animal Bite, Adult, Pcqg-qn-Qhdx Follow up: With: Address: When: MICHAEL HELMS [address] [place], [place] [id number] Business (1) In 3 days 08/11/2021 DIAGNOSIS: 1:Dog bite of middle finger; Bitten by dog, initial encounter Normal [facility] ED Patient Education Noteon 08-08-2021 [...] cannot use soap and water, use hand card clothier. ? Change your bandage as told by [...] bad smell. Medicines ? Take or apply pfvs-ffy-xcbffac and prescription medicines only as told by [...] 03/25/2006 Document Revised: 03/20/2018 Document Reviewed: 10/03/2017 [employer] Patient Education ? 2019 [employer]. Normal [facility] ED Patient Summaryon 022 ED Patient Summary [place] [id number] Patient Discharge Instructions Person Information Name: LIZ KENYON Age: 26 Years Arrival Date: 08/08/2021 14:29:26 Discharge Diagnosis: 1:Dog bite of middle finger; Bitten by dog, initial encounter Primary Care Physician: MICHAEL HELMS MD Provider Information Primary Provider: Sourav Stinson DO Advanced Assistant Center Director:None The exam and treatment you received in the Emergency Department were for an urgent problem and are not intended as complete care. It is important that you follow up with a doctor, nurse practitioner, or physician?s activities assistant for ongoing care. If your symptoms become worse or you do not improve as expected and you are unable to reach your usual health care provider, you should return to the Emergency Department. We are available 24 hours a day. LIZ KENYON has been given the following list of patient education materials, prescriptions and follow-up instructions: Follow-up Instructions: With: Address: When: MICHAEL [address] [place], [place] [id number] Business (1) In 3 days 08/11/2021 In the event that this physician does not participate in your insurance network, please consult with your insurance company to find a nearby participating provider. Patient Education Materials: Animal Bite, Adult, Vgvx-qr-Wrzg A MESSAGE TO ALL PATIENTS REGARDING OPIOIDS PRESCRIPTION OPIOIDS: WHAT YOU NEED TO KNOW Prescription opioids can be used to help relieve lnnzidmu-oa-ucyzfn pain and are often prescribed following a [...] be struggling with addiction, tell your health career services representative and ask for guidance or call [facility] National Helpline at [phone]-FP (more content not included)... Normal [facility] Coding Summary.on 02-24-2021 Coding Summary. CD:[id number] G h0bWw+PGhlYWQ+HQ0KDDM vV12buBHrgR0WD7oAEC5F KLSDMABGFA6KMV7toQX8X LhuT4BeelTh PuwgwBDhEC29BTm4ZCJ9p DfaLSpuvF0yuQNaP0l5Ae WzGQ99bG42EEupYOCuVzC 3LjZpbjsgbWFy B8qbOaTlpMXvFpy+PHRhY mxlIHdpZHRoPScxMDAlJy NzcCnkNS4uQa3hQKPmNQH vbGxhcHNlOiBj f6sdUNCkKKzsAZ7luWppZ 7PnlKY8YYFpg6r8Gn62nR I+NUIiNLM8tQapXLhyk21 0AbHyz8ltWPV6 zKLkOFuoCJJ4T33vk2H5G FTjCTAuFNA9nKC9iP6isP ddbftoL3JjmWAbPtG7ZYH 6uGFazP9anEew pbgbbB1eDor+F97YBC6CM BKHHC9ELpu5X9GnXowjnD I+JT40WWWiWK79oFWgvLU xw4wdtSq3IwRg CFBaEQI8fTdcJXrii2FyF TGhY02fgLIhj9N6UZBynJ mrtGZbJvWvjOA2wJ2xDMx nvwngc2snbbnw Lhdse5ngbm98zG82K23oR LrvBWUsOUH7XOWjINJxiK xapf9asA9cLj0+PEzfh2b su6igkEk3KhLw DZBnlsOzoIwsGMG5a4SeE m83W9TizSopo3LdFbh1qs 12gRUfb1J2zHU7VObgODP obH1zBFigKjD7 BKXvEtLnlF50uGBsXMckV q5ajJzttHoqVQ4pBEOuss gnDVIjfN7rOOGroEGqwUc sXE3rGDLsdhgy g860FzJzCJR8VZWcmDJfI 8OzzG0tWgRuHQUyYMQhE7 WqgCOnWNmlL927IYqnWyD 4FVBqfiWkJ8Zp CFLhlZkzIaD9y3O8Tf4Wo 7WqlpdwZFO3OOchLSBtLp T3NbPmReW6C2WbFyb3ZOR wpEvhUD6zY0Sb NKPsviileortbNR7WNUmU RFagM48yPOoBUdhTj8rm2 R1t186GKEiORXtcM87Fo4 udDogMTBwdCBU wD5easauq7nrvafrMpRtV VCgPRs2WHh3ATCbwLkuEs ArITR2AiY6IQO6vYAqmY7 zoAczwgfbjS7a Oyc+O30hqF5zIIS0FIZ5x iqoLCWqrkCgZQ28HA01H9 RyPjwvdGFibGU+PGRpdiB ueQkdNW8dWfPb d3anh6ZfBFysS5FnRTRuM RryWjd6WPDbMCL3wDQ8kY 6tMQPlZXkkc6A0kDU4H4A ltkFqmg0zp7sy UPZzXJliE21vyXZre7S4Z FIkpOI4NRTszHmrMqIjoK 93Oyc+JPZbaHuut6FdGys ow6xqn1aygDo7 HfDeNYJgrvEmfBdiRHZ3v 9UkDs67E06lZWvgZFAfPZ MmWXEaWHWjlCwjfs0yhO3 wIi8+PGNvbCB3 xXL0tU4oCQCeYfQ5GVsqQ 316SgVnoOKiKmvvw9hao5 pbyUd0SuUpFKFbkqNjbZq xMCO2w1UnSu95 U58hRYfsAAZlYLBaAEYbB CXohTuyvt2gvN3fGb8+PC 6ow3mwil14iL55jCG+PHR gYFF3lDqpZOmx AMOmjZ0nBKynZqF4ELIqN dYcpX78uJBdVOneCz3mkJ bckPriQM1jGMWffwcmh66 5GsJlj0doSXEz hWPrVSnxRDI8G17eg9L9S SLpTQQhBBP2wQY5xU5uzT lnbjogbGVmdDsgdmVydGl vQWkfFIxjX704 IHRvcDsnPlBhdGllbnQgT sHwVLk4S0NcFip8SMPptU lgIA7yrDDmQBnjSm3qzFq zdYfuZI6wECTh svcxc689TnSij7jxSXTmx HSxWKoqGGK2N09kx3Z5WK PsFGRkRRP8xZX5fL6tnLp nbjogbGVmdDsg dcAxhAoyVHisTXzbE957G HRvcDsnPkJpcnRoIERhdG G6BO82BY73tNXyh0S8tUP 7Y9NsIQNstiau ncfmvNW9BLIxEXKaaV47D q1fjTpvXu5mUGGdLZK6KZ WtyASlI0NztE8mTgRzWUX jFAHhY9ZfdADd RTjxE999XCrwWnG4PMDgi yThN5PnQSZdeEfiWaJ8w8 Z7Zn4KG7T9OE83GV11xSH ds5E4bDA7S1Dr UBPkoricuwwvpDV2YWMvF ZIkdD35Aj1isDggYd9tMH TbMEW4SGYnsGBoK5NfoI1 yOiAjMDAwMDAw E5TruUQfALhwA761MYpcM jN8NBXvmfQfY2HoUMKzvI ioVvA4r9O2Du7XZVc9PZ1 4QL54pLUzw9H9 fON6V9BuKPNyfgvwgxcyc XC8ZYKnRSBnuA38Pa9ovS jgNh4zBPVrDTI1GRWjtDW fU2GykL9rTnCx PTKlLNUiC7BusENfNYrxJ 677BAuoDvM3CQWbuuHiG7 PhQFBtvYefPzE5e5T9Px7 IWUBrTL65DVZ9 eMJ3UY21MT56P6KiDmbjv GFibGU+PHRhYmxlIHdpZH RoPScxMDAlJyBzdHlsZT0 zJr8fKMCxDOTd kQcbeDOnTmFkj7ckRBUzG MxqQD0auZorW7KsnPG4JS Qhi0s5Hk23W74fP3BwhNZ +XZUcvMT4oBH2 qH4tIpVrKfT5NTspX440L jYzyHTkYuzdf3xuv3edkN o0EfB6RXIrreZjfYrnJPG 2s0YvLq66B43f IHdpZHRoPSIxNSUiIHZhb Dabdk2ocV1lNb2+PGNvbC A3pEU8tV4pLqXoXlG0KRg iH112IiVgfOSu Ptkbu9hxq8ezaZp0MyLjO YIesiZbeCiaXGE3y6HzZl 24E3PkiPuxo5YuSzz8as9 4aNXod2N0mMD3 H9MdGKDqdpbmcIHhfIohL I8gWEUxfvuyCNHimW1qXS JsS9j1UyFoMvG5NFtcJ9G kgfK5MXYftIFj CWeuPFM9Q36gy2N6LIQpM YAlCSJ4uVB4tZ3tvSwewl ogbGVmdDsgdmVydGljYWw aNMxkP486LOLf zPhxEQEjtG8oWOUjyHDva RpzVN6nHNBdhvbfNpJJRJ QTLQBQEFvLCYZZGV91SC4 8wGIzj7K4gSG0 F0ThHDGfkvhtjspxmTY5H FHeRAOaqV17gRSjCRhdUe 5it6L4p701DMUvWDCevP4 2Fy3knUhpGPGp eATYcA7gjgjtm9zajkgsW zJrCFUmHGe3GDm8FHUciA rgGmGcMOO1NvP6UBK7kUP dzM3fxUimuqoe wE2zRqw+NNEoBmuyGDk1K jwvdGQ+IDCjLCW6uFczGQ gaVSEoeX6uBHJiH1s8IfI wWlJ6URreQ2Cm PADxahzhIo34kL9xIgWmJ nM4XSdtD4CqkvK7DNOnqU KqLXynYCG9U83az7Z1APM oDWHaNML2jQM6 nP1taFhzekpaeFEzqRnpt iEjuLtcPOnpFQksI274SS XqnYjyBwM2CUgtCXEuPE0 2MN63gONfz5U9 uVB8N3MmMRMfchtkhyigk VV7PJZjYGBjhS14uOOmSH azMi3ut9V7r398GCEdCKL ncX16Jm9stJzg AATbyUYAnP6wxqzgn1yce pxyLcOpZLRlODx7SUq9PJ OmqIorUmHaDBQ0JeC1CIT 5aXRhpF8ddFnv vdekmA0lJkf+RmVtYWxlP H87MM42qEPmi5E4hAA8H7 QtXSByygnxxkugjZR7BZY pSUFxnG75aFBh NBeeEi9dc0T9i194VZReB SLinG60Zd1ssFmzVZZzfP BJzT2hzwkgo2valxvlCoJ zQTRoONz0ZCa1 QQAroBbwAdRtAYD0RcY8Z DZ5xIKhnV8giRpwzlrcqC 9wOyc+LP1fkzancsS7IF5 5KO67I6NmUwrf dGFibGU+PHRhYmxlIHdpZ HRoPScxMDAlJyBzdHlsZT 6cEi0eUDKyIHHsyYxykXS tRjIzy0ibNXEm EWnyID7ogFcdH9PdeAQ8R ODho2w4Yt60X71fD6FugK A+ZCVdnAW5xTT0vO4sGiP oRjP0SIzvT537 UeAteYOwYwnxm7pgb9bve Ze6PrCkALZcgsNatKmhCP G0g6QaGo14J32fCXsfBEH oPSIyMCUiIHZh oSxopj5wyA6jIx4+PGNvb YF7kJA3yY1iDyRoMlV5WX okL615UrCueDBmQsttY48 zM3EoeHD+PHRy Lga7GLNkeXwgCO1zqNPlT VptPr1xJDP6ArGhAwRdLZ rsP5DfKOGcolkspthtqSR 5VYJxEIXtgA27 Jt6plPrrOh1hRBBwCYG0Z PVjwQFsW5AscB1iJmIxFW IiZHRlG9HfhUMoJUsgD60 5CBbaEvX4NHYj qeBfO9RvOASfsZyiZhD8m 5M7Ji8NnIfdoHDnGE9iMm WhZOh9O5MmEdg0ILZrfRs yNU5gsTJkWNxh Vl8dqKudmKlsKN8rSXEdu wrze033WtRhn1nfWIYhwA BkJKqcFWK0G36ij6A0NEZ kDYZxTNQ2zQN7 vZ9phCmrwgjeoOVeaFlih hIezWnwUMnqSFycZ205JF JqaRonTkLDMki8D2JpPvu 7XVQpwSowHS2e lSXmYStwPo9boRgziXnqC C6gSBIkaxlky208ZjZiq4 dbCVCvgQZdWPnlYKN7A70 zu6H5ALOzBHCj OYP9qZA6yI6wvFsrtisom GVmdDsgdmVydGljYWwtYW qdF590LDOknYwcCg6GTzj 9E0WfAot3PPGu dAaiHJ2xqHBqFBpuBb3ur VdcmSkgEM5dSOYwlyzxa3 81SlDax1qoLESqdHCpBMx gZNQ4F34iw2N2 ITEuCVIrAVM8yLL1jD9zb GlnbjogbGVmdDsgdmVydG ioSQwaDDnbL279ADQquSh nPlBheWVyOjwv dGQ+BM28gf55B3EpEfzyA pd8RZVhGPU9tJI8rN2oKK ExMGmag4R0rOV1R4GkbwW fhw3ak8acYCFk ZTog (more content not included)... Normal [facility] .Manual Abson 02-23-2021 Basophils/Leukocyte s Manual cnt (Bld) [Pure # fraction] 0.0 E9/L Normal 0.0-0.2 [facility] Comment on above: Performed By: #### 2 [id number], [id number] ####[facility] [address] [place] [address] Eosinophils/Leukocy kenyon Manual cnt (Bld) [Pure # fraction] 0.0 E9/L Normal 0.0-0.5 [facility] Comment on above: Performed By: #### 2 864981, 64242826, 43244128, 32176605, 8855245, 6417422 ####[address] [place] [address] Lymphocytes/Leukocy kenyon Manual cnt (Bld) [Pure # fraction] 1.8 E9/L Normal 1.0-4.0 [facility] Comment on above: Performed By: #### 2 402147, 75673035, 17802105, 96526926, 8639702, 0378796 ####[address] [address] Monocytes/Leukocyte s Manual cnt (Bld) [Pure # fraction] 0.3 E9/L Normal 0.2-1.0 [facility] Comment on above: Performed By: #### 2 345145, 16330844, 09123802, 69788175, 3665251, 4755226 ####[address] [address] Neutrophils/Leukocy kenyon Auto (Bld) [Pure # fraction] 1.7 E9/L Low 2.0-7.5 [facility] Comment on above: Performed By: #### 2 544723, 63826909, 28794508, 51938979, 4033532, 5757946 ####[address] [address] BMPon 02-23-2021 Creatinine [Mass/Vol] 0.7 mg/dL Normal 0.5-1.3 [facility] Comment on above: Performed By: #### 2 611859, 67355783, 29512864, 30999106, 1434313, 5033484 ####[address] [place] [address] Urea nitrogen [Mass/Vol] 7 mg/dL Normal 5-21 [facility] Comment on above: Performed By: #### 2 177842, 21583946, 41634490, 86829793, 5329474, 9986307 ####[facility] [address] [place] [address] Urea nitrogen/Creatinine [Mass ratio] 10 No Units Normal 10-20 [facility] Comment on above: Performed By: #### 2 293374, 51587179, 98878701, 21612872, 5329364, 6700641 ####[facility] [address] [place] [address] Anion gap [Moles/Vol] 13 mmol/L Normal 6-16 [facility] Comment on above: Performed By: #### 2 245573, 41122716, 60769159, 09161382, 7224719, 3920031 ####[facility] [address] [place] [address] Calcium [Mass/Vol] 9.0 mg/dL Normal 8.9-11.1 [facility] Comment on above: Performed By: #### 2 459276, 32096890, 58192521, 49815060, 4841961, 2503031 ####[facility] [address] [place] [address] Chloride [Moles/Vol] 103 mmol/L Normal 101-111 [facility] Comment on above: Performed By: #### 2 654055, 56141084, 42412096, 27102680, 3471525, 3319610 ####[facility] [address] [place] [address] CO2 [Moles/Vol] 22 mmol/L Normal 21-31 [facility] Comment on above: Performed By: #### 2 941222, 06794807, 99983676, 54206543, 5288647, 1101457 ####[facility] [address] [place] [address] Glucose [Mass/Vol] 129 mg/dL Normal 55-199 [facility] Comment on above: Result Comment: If t his glucose result represents a fasting glucose, interpretation should refer to the following reference range: 55-99 mg/dL Performed By: #### 2 699957, 26076145, 35761603, 58409645, 0180323, 4299023 ####[facility] [address] [place] [address] Potassium [Moles/Vol] 3.3 mmol/L Low 3.5-5.3 [facility] Comment on above: Performed By: #### 2 013670, 19072643, 49174572, 16343764, 6961906, 3693705 ####[facility] [address] [place] [address] Sodium [Moles/Vol] 135 mmol/L Normal 135-145 [facility] Comment on above: Performed By: #### 2 134958, 41932056, 15743459, 98102075, 2826388, 8937368 ####[address] [address] CBC w/ Auto Diffon Erythrocyte distribution width (RBC) [Ratio] 13.5 % Normal 10.9-14.2 [facility] Comment on above: Performed By: #### 2 287155, 06454552, 23431981, 84462767, 8161030, 6151916 ####[facility] [address] [place] [address] Hematocrit (Bld) [Volume fraction] 37.1 % Normal 34.0-46.0 [facility] Comment on above: Performed By: #### 2 744966, 16500181, 12736309, 66550259, 8696132, 5939370 ####[facility] [address] [place] [address] Hemoglobin (Bld) [Mass/Vol] 12.5 g/dL Normal 12.0-16.0 [facility] Comment on above: Performed By: #### 2 817099, 74277184, 99197583, 49226051, 7455440, 3524334 ####[facility] [address] [place] [address] MCH (RBC) [Entitic mass] 29.4 pg Normal 27.0-34.0 [facility] Comment on above: Performed By: #### 2 631029, 31449987, 14087946, 60693094, 2054835, 0442603 ####[facility] [address] [place] [address] MCHC (RBC) [Mass/Vol] 33.6 g/dL Normal 31.4-36.0 [facility] Comment on above: Performed By: #### 2 311501, 96270432, 05035065, 34408684, 2886869, 6071147 ####[address] [place] [address] MCV (RBC) [Entitic vol] 87.4 fL Normal 80.0-100.0 [facility] Comment on above: Performed By: #### 2 734262, 76815619, 93270387, 71470783, 9908508, 0503220 ####[address] [address] Platelet mean volume (Bld) [Entitic vol] 9.4 fL Normal 6.4-10.8 [facility] Comment on above: Performed By: #### 2 760835, 04284718, 59661402, 53520489, 7478123, 5288069 ####[address] [address] Platelets (Bld) [#/Vol] 208.0 E9/L Normal 150.0-500.0 [facility] Comment on above: Performed By: #### 2 830886, 39581835, 66847991, 16723996, 9802655, 0476497 ####[address] [address] RBC (Bld) [#/Vol] 4.2 E12/L Low 4.3-5.9 [facility] Comment on above: Performed By: #### 2 769692, 56083261, 98021742, 23566790, 4011101, 5717032 ####[facility] [address] [place] [address] WBC corrected for nucl RBC Auto (Bld) [#/Vol] 3.8 E9/L Low 4.0-11.0 [facility] Comment on above: Performed By: #### 2 673428, 96651781, 41062475, 53602063, 7055161, 3572937 ####[facility] [address] [place] [address] Consent for Treatmenton 02-06 Consent for Treatment [id number]:127 Normal [facility] Discharge Instructionson Discharge Instructions [id number]:127 Normal [facility] ED Clinical Summaryon 2020 ED Clinical Summary [address] [address] ED Clinical Summary Person Information Name: LIZ KENYON [facility] Age: 26 Years : 1995 Sex: Female Language: Hungarian PCP: MICHAEL HELMS MD Marital Status: Phone: [phone] Visit Id: Visit Reason: Shortness of breath; [...] 15:23:48 02/23/2021 15:23:48 AD[address]ESS: [address] [facility] [id number] PHYS DOC NOTES: MEDICAL INFORMATION: Prescriptions Given: [...] Follow up: With: Address: When: MICHAEL HELMS [address] [place] [address] Business (1) In 3 days 02/26/2021 DIAGNOSIS: 1:Vaccine reaction Normal [facility] ED Note-Physicianon 02-24-20 ED Note-Physician Basic [...] MICHAEL HELMS In 3 days 02/26/[address] [place] [phone] Business (1) Additional Instructions: Patient Education Post-Injection Inflammatory Reaction Attestation Patient seen and evaluated by the physician activities assistant. Attending physician was present in the emergency department and supervised care. This report was transcribed using voice recognition software. Every effort was made to ensure accuracy, however, inadvertently computerized tools programmer mistakes may be present. Appropriate healthcare PPE [...] % (02/23/21 (more content not included)... Normal [facility] Comment on above: Result Comment: Elec tronically [...] a physical exam. During the exam, a pauma may be drawn around the injection site. The pauma helps to show whether redness in the area is spreading. How is this treated? Treatment for this condition depends on what caused the reaction and how severe the reaction is. Treatment may include: ? Putting an ice pack over the injection site. ? Taking a nonsteroidal anti-inflammatory drug (NSAID) to lessen swelling and itching. ? Taking antibiotic medicine. ? Taking cmxx-wnz-lypmwmp pain medicine. If the reaction affects a joint, you may also need to rest the joint for a while. Follow these instructions at home: Medicines ? If you were prescribed antibiotic medicine, take or apply it as told by your health care provider. Do not stop taking or applying the antibiotic even if you start to feel better. ? Take ipjx-vel-gtmtgvf and prescription medicines only as told by [...] 12/05/2011 Document Revised: 07/17/2019 Document Reviewed: 03/02/2019 [employer] Patient Education ? 2019 [employer] [facility] ED Patient Summaryon 021 ED Patient Summary [place] [id number] Patient Discharge Instructions Person Information Name: LIZ KENYON Age: 26 Years Arrival Date: 02/23/2021 12:58:05 Discharge Diagnosis: 1:Vaccine reaction Primary Care Physician: MICHAEL HELMS MD Provider Information Primary Provider: Julee Herrera M.D. Advanced Assistant Center Director:Robert Urena PA-C The exam and treatment you received in the Emergency Department were for an urgent problem and are not intended as complete care. It is important that you follow up with a doctor, nurse practitioner, or physician?s activities assistant for ongoing care. If your symptoms become worse or you do not improve as expected and you are unable to reach your usual health care provider, you should return to the Emergency Department. We are available 24 hours a day. LIZ KENYON has been given the following list of patient education materials, prescriptions and follow-up instructions: Follow-up Instructions: With: Address: When: MICHAEL HELMS [address] [place] [address] Business (1) In 3 days 02/26/2021 In the event that this physician does not participate in your insurance network, please consult with your insurance company to find a nearby participating provider. Patient Education Materials: Post-Injection Inflammatory Reaction A MESSAGE TO ALL PATIENTS REGARDING OPIOIDS PRESCRIPTION OPIOIDS: WHAT YOU NEED TO KNOW Prescription opioids can be used to help relieve dlnutyxa-qq-uvkawt pain and are often prescribed following a [...] be struggling with addiction, tell your health career services representative and ask for guidance or call [facility]S National Helpline at 0-256-051-MIYN. (more content not included)... Normal [facility] Manual Diffon 02-23-2021 Band form neutrophils/100 WBC (Bld) 6 % Normal 0-10 [facility] Comment on above: Order Comment: Order Added by Discern Expert. Performed By: #### 2 758442, 13402645, 30521690, 48843288, 9759229, [id number] ####[facility] [address] [place] [address] Basophils/100 WBC (Bld) 0 % Normal 0-2 [facility] Comment on above: Order Comment: Order Added by Discern Expert. Performed By: #### 2 [id number], [id number], [id number], [id number], [id number] ####[facility] [address] [place] [address] Eosinophils/100 WBC (Bld) 1 % Normal 0-8 [facility] Comment on above: Order Comment: Order Added by Discern Expert. Performed By: #### 2 [id number], [id number], [id number], [id number], [id number], [id number] ####[facility] [address] [place] [address] Lymphocytes/100 WBC (Bld) 44 % Normal 14-50 [facility] Comment on above: Order Comment: Order Added by Discern Expert. Performed By: #### 2 [id number], [id number], [id number], [id number], [id number], [id number] ####[facility] [address] [place] [address] Monocytes/100 WBC (Bld) 7 % Normal 4-14 [facility] Comment on above: Order Comment: Order Added by Discern Expert. Performed By: #### 2 [id number], [id number], [id number], [id number], 5240425, [id number] ####[facility] [address] [place] [address] Morphology Mateusz (Bld) [Interp] Normal Normal [facility] Comment on above: Order Comment: Order Added by Discern Expert. Performed By: #### 2 [id number], [id number], [id number], [id number], [id number], [id number] ####[facility] [address] [place] [address] Segmented neutrophils/100 WBC (Bld) 39 % Normal 36-75 [facility] Comment on above: Order Comment: Order Added by Discern Expert. Performed By: #### 2 823966, [id number], [id number], [id number], 6388814, [id number] ####[facility] [address] [place] [address] Variant lymphocytes LM Ql (Bld) 3 % Invalid Interpretation Code [facility] Comment on above: Order Comment: Order Added by Discern Expert. Performed By: #### 2 [id number], [id number], [id number], [id number], 9930217, [id number] ####[facility] [address] [place] [address] Prescriptions/Work Noteson 1 04-25-2020 Prescriptions/Work Notes [id number]:127 Normal [facility] Troponin 0 Hr.on 02-23-2021 Troponin I.cardiac [Mass/Vol] 2.30 pg/mL Low 10.10-27.10 [facility] Comment on above: Result Comment: The 95% CI (Confidence Interval) PPV (Positive Predictive Value) for myocardial infarction in females is 38 pg/mL, in males 51 pg/mL. The results should be used in conjunction with clinical conditions of myocardial infarction. (Access High Sensitivity Troponin I Instructions For Use, Emre [place], November 2017) Performed By: #### 2 [id number], [id number], [id number], [id number], [id number], [id number] ####[facility] [address] [place] [address] XR Chest Single Viewon 02-23 XR Chest [...] V. Transcribed by: KEMAR Technologist: DYAN Normal [facility] eGFRon 02-23-2021 GFR/1.73 sq M.predicted among blacks MDRD (S/P/Bld) [Vol rate/Area] mL/min/{1.73_m2} Normal >=59 [facility] Comment on above: Order Comment: Order added by Discern Expert. Result Comment: eGFR is race adjusted. AA=. Performed By: #### 2 [id number], [id number], [id number], [id number], 1685786, [id number] ####[facility] [address] [place] [address] GFR/1.73 sq M.predicted among non-blacks MDRD (S/P/Bld) [Vol rate/Area] mL/min/{1.73_m2} Normal >=59 [facility] Comment on above: Order Comment: Order added by Discern Expert. Result Comment: Court Transcriber jorden kidney disease could be indicated at eGFR's of less than 60 mL/min/1.73m2. Kidney failure is indicated at less than 15 mL/min/1.73m2. Performed By: #### 2 [id number], [id number], [id number], [id number], 0564831, [id number] ####[facility] [address] [place] [address] Ambulatory Clinical Summaryo n 10-14-2020 Ambulatory Clinical Summary {[id number] Normal [facility] Vital Signs Date Time Vital Sign Value Performing Clinician Facility 05-11-2024 16:21-0500 Body mass index (BMI) [Ratio] 41.63 kg/m2 Sam Morro DO Work Phone: [facility] 05-11-2024 16:21-0500 Body weight 120.57 kg Sam Morro DO Work Phone: [facility] 05-11-2024 16:21-0500 Diastolic blood pressure 82 mm[Hg] Sam Morro DO Work Phone: [facility] 05-11-2024 16:21-0500 Systolic blood pressure 124 mm[Hg] Sam Morro DO Work Phone: [facility] 04-29-2024 15:12-0500 Body mass index (BMI) [Ratio] 41.79 kg/m2 Sam Morro DO Work Phone: [facility] 04-29-2024 15:12-0500 Body weight 121.02 kg Sam Morro DO Work Phone: [facility] 04-29-2024 15:12-0500 Diastolic blood pressure 80 mm[Hg] Sam Morro DO Work Phone: [facility] 04-29-2024 15:12-0500 Systolic blood pressure 130 mm[Hg] Sam Morro DO Work Phone: [facility] 04-15-2024 15:34-0500 Body mass index (BMI) [Ratio] 41.16 kg/m2 Sam Morro DO Work Phone: [facility] 04-15-2024 15:34-0500 Body weight 119.2 kg Sam Morro DO Work Phone: [facility] 04-15-2024 15:34-0500 Diastolic blood pressure 84 mm[Hg] Sam Morro DO Work Phone: [facility] 04-15-2024 15:34-0500 Systolic blood pressure 120 mm[Hg] Sam Morro DO Work Phone: [facility] 03-18-2024 16:17-0500 Body mass index (BMI) [Ratio] 40.69 kg/m2 Sam Morro DO Work Phone: [facility] 03-18-2024 16:17-0500 Body weight 117.84 kg Sam Morro DO Work Phone: [facility] 03-18-2024 16:17-0500 Diastolic blood pressure 64 mm[Hg] Sam Morro DO Work Phone: [facility] 03-18-2024 16:17-0500 Systolic blood pressure 118 mm[Hg] Sam Morro DO Work Phone: [facility] 02-19-2024 15:41-0500 Body mass index (BMI) [Ratio] 39.91 kg/m2 Sam Morro DO Work Phone: [facility] 02-19-2024 15:41-0500 Body weight 115.58 kg Sam Morro DO Work Phone: [facility] 02-19-2024 15:41-0500 Diastolic blood pressure 80 mm[Hg] Sam Morro DO Work Phone: [facility] 02-19-2024 15:41-0500 Systolic blood pressure 126 mm[Hg] Sam Morro DO Work Phone: [facility] 01-22-2024 15:16-0400 Body mass index (BMI) [Ratio] 39.47 kg/m2 Sam Morro DO Work Phone: [facility] 01-22-2024 15:16-0400 Body weight 114.31 kg Sam Morro DO Work Phone: [facility] 01-22-2024 15:16-0400 Diastolic blood pressure 72 mm[Hg] Sam Morro DO Work Phone: [facility] 01-22-2024 15:16-0400 Systolic blood pressure 124 mm[Hg] Sam Morro DO Work Phone: [facility] 12-23-2023 15:41-0400 Body mass index (BMI) [Ratio] 40 kg/m2 Sam Morro DO Work Phone: [facility] 12-23-2023 15:41-0400 Body weight 115.85 kg Sam Morro DO Work Phone: [facility] 12-23-2023 15:41-0400 Diastolic blood pressure 70 mm[Hg] Sam Morro DO Work Phone: [facility] 12-23-2023 15:41-0400 Systolic blood pressure 120 mm[Hg] Sam Morro DO Work Phone: [facility] 06-22-2022 09:21-0400 Body height 167.6 cm ANTELMO Bills MD Work Phone: [facility] 06-22-2022 09:21-0400 Body weight 112.49 kg NA Sanju PORTILLO Work Phone: [facility] 08-08-2021 14:31-0400 Body temperature 98.24 [degF] Sourav Stinson [facility] 08-08-2021 14:31-0400 Diastolic blood pressure 97 mm[Hg] Sourav Stinson [facility] 08-08-2021 14:31-0400 Heart rate 94 /min Sourav Stinson [facility] 08-08-2021 14:31-0400 Respiratory rate 18 /min Sourav Stinson [facility] 08-08-2021 14:31-0400 SaO2% (BldA) [Mass fraction] 98 % Sourav Stinson [facility] 08-08-2021 14:31-0400 Systolic blood pressure 137 mm[Hg] Sourav Stinson [facility] Encounters Encounter Date Encounter Type Care Provider Facility Start: 05-11-2024 End: 05-11-2024 ambulatory SAM MORRO Not Available Start: 05-11-2024 End: 05-11-2024 flow sheet Sam Morro DO Work Phone: [facility] Comment on above: Third trimester preg tray; 34 weeks gestation of ; size inconsistent with dates Start: 05-11-2024 End: 05-11-2024 Bamboo flowsheet Sam Morro DO Work Phone: [facility] Start: 05-11-2024 End: 05-11-2024 Bamboo flowsheet Sam Morro DO Work Phone: [facility] Start: 04-29-2024 End: 04-29-2024 flow sheet Sam Morro DO Work Phone: [facility] Comment on above: Third trimester preg tray; 32 weeks gestation of Start: 04-29-2024 End: 04-29-2024 ambulatory SAM MORRO Not Available Start: 04-15-2024 End: 04-15-2024 ambulatory SAM MORRO Not Available Start: 04-15-2024 End: 04-15-2024 flow sheet Sam Morro DO Work Phone: [facility] Comment on above: 30 weeks gestation o f ; Third trimester ; Excessive growth affecting management of , antepartum, single or unspecified fetus Start: 04-15-2024 End: 04-15-2024 Bamboo flowsheet Sam Morro DO Work Phone: [facility] Start: 04-15-2024 End: 04-15-2024 Bamboo flowsheet Sam Morro DO Work Phone: [facility] Start: 03-18-2024 End: 03-18-2024 flow sheet Sam Morro DO Work Phone: [facility] Comment on above: 26 weeks gestation o f ; Encounter for follow-up ultrasound of anatomy Start: 03-18-2024 End: 03-18-2024 ambulatory SAM MORRO Not Available Start: 03-18-2024 End: 03-18-2024 Bamboo flowsheet Sam Morro DO Work Phone: [facility] Start: 03-18-2024 End: 03-18-2024 Bamboo flowsheet Sam Morro DO Work Phone: [facility] Start: 03-17-2024 End: 03-17-2024 Clinisync Result Encounter Generic External Data Provider [facility] Unsolicited Start: 03-17-2024 End: 03-17-2024 Clinisync Result Encounter Generic External Data Provider [facility] Unsolicited Start: 03-03-2024 End: 03-03-2024 Clinisync Result Encounter Generic External Data Provider [facility] Unsolicited Start: 03-03-2024 End: 03-03-2024 Clinisync Result Encounter Generic External Data Provider [facility] Unsolicited Start: 02-19-2024 End: 02-19-2024 ambulatory SAM MORRO Not Available Start: 02-19-2024 End: 02-19-2024 flow sheet Sam Morro DO Work Phone: [facility] Comment on above: 22 weeks gestation o f ; Second trimester ; Diabetes mellitus screening Start: 02-19-2024 End: 02-19-2024 Bamboo flowsheet Sam Morro DO Work Phone: [facility] Start: 02-19-2024 End: 02-19-2024 Bamboo flowsheet Sam Morro DO Work Phone: [facility] Start: 01-22-2024 End: 01-22-2024 ambulatory SAM MORRO Not Available Start: 01-22-2024 End: 01-22-2024 flow sheet Sam Morro DO Work Phone: [facility] Comment on above: Second trimester pre gnancy; 18 weeks gestation of Start: 01-22-2024 End: 01-22-2024 Bamboo flowsheet Sam Morro DO Work Phone: [facility] Start: 01-22-2024 End: 01-22-2024 Bamboo flowsheet Sam Morro DO Work Phone: [facility] Start: 12-23-2023 End: 12-23-2023 ambulatory SAM MORRO Not Available Start: 12-23-2023 End: 12-23-2023 flow sheet Sam Morro DO Work Phone: [facility] Comment on above: 14 weeks gestation o f ; Exposure to STD; Vaginal discharge; Screening, , for anatomic survey; UTI symptoms Start: 12-23-2023 End: 12-23-2023 Bamboo flowsheet Sam Morro DO Work Phone: [facility] Start: 12-23-2023 End: 12-23-2023 Bamboo flowsheet Sam Morro DO Work Phone: [facility] Start: 12-12-2023 End: 12-12-2023 Clinisync Result Encounter Generic External Data Provider [facility] Unsolicited Start: 12-12-2023 End: 12-12-2023 Clinisync Result Encounter Generic External Data Provider [facility] Unsolicited Start: 11-25-2023 End: 11-25-2023 ambulatory SAM MORRO Not Available Start: 09-09-2023 End: 09-09-2023 ambulatory ENIO CIFUENTES Not Available Start: 08-12-2023 End: 08-12-2023 ambulatory JULIO PULIDO Not Available Start: 08-07-2023 End: 08-07-2023 ambulatory SAM MORRO Not Available Start: 07-11-2023 End: 07-11-2023 ambulatory MICHAEL HELMS Not Available Start: 06-19-2023 End: 06-19-2023 ambulatory SAM MORRO Not Available Start: 06-13-2023 End: 06-13-2023 ambulatory SAM MORRO Not Available Start: 03-05-2023 End: 03-05-2023 ambulatory SAM MORRO Not Available Start: 08-14-2022 Encounter for genera l adult medical examination without abnormal findings DR MICHAEL HELMS [facility] Start: 08-07-2022 End: 08-08-2022 ambulatory [...] Facility:[facility] Start: 01-31-2022 End: 01-31-[address] SAM HOOKER . Facility:[facility] Start: 08-23-2021 End: 08-24-[address] MICHAEL HELMS Facility:[facility] Start: 08-08-2021 End: 08-08-2021 Emergency department patient visit Sourav Stinson [facility] Procedures Date Procedure Procedure Detail Performing Clinician Start: 04-29-2024 Urnls dip stick/tabl et rgnt non-auto w/o micrscp Sam Morro DO Work Phone: Start: 04-15-2024 Urnls dip stick/tabl et rgnt non-auto w/o micrscp Sam Morro DO Work Phone: Start: 03-18-2024 Urnls dip stick/tabl et rgnt non-auto w/o micrscp Sam Morro DO Work Phone: Start: 03-17-2024 GLUCOSE TOLERANCE 3 HOUR Sam Morro DO Work Phone: Start: 03-03-2024 ALL CBC WITH AUTO DIFF Sam Morro DO Work Phone: Start: 02-19-2024 Urnls dip stick/tabl et rgnt non-auto w/o micrscp Sam Morro DO Work Phone: Start: 01-22-2024 Urnls dip stick/tabl et rgnt non-auto w/o micrscp Sam Morro DO Work Phone: Start: 12-23-2023 Urnls dip stick/tabl et rgnt non-auto w/o micrscp Sam Morro DO Work Phone: Start: 12-12-2023 ALL CBC WITH AUTO DIFF Sam Morro DO Work Phone: Start: 01-27-2015 excision of pilar [address] - local Sourav Stinson Lithotripsy Sourav Stinson Plan of Treatment Date Care Activity Detail Author Start: 05-26-2024 End: 05-26-2024 Patient encounter procedure 05/26/2024 2:40 PM EST Routine [facility] [address] [place] [address] Sam Hooker DO [facility] [place] [address] [facility] Start: 05-26-2024 End: 05-26-2024 Professional / ancillary services management 05/26/2024 2:00 PM EST Ancillary Procedure [facility] [address] [place] [id number] [facility] Start: 05-11-2024 End: 05-11-2024 Patient encounter procedure 05/11/2024 3:40 PM EST Routine [facility] [address] [place] [phone] Sam Hooker DO [address] [place], [place] [id number] [facility] Start: 05-11-2024 End: 05-11-2025 US for US OB follow up transabdominal approach Imaging Routine size inconsistent with dates Expected: 05/11/2024, Expires: 05/11/2025 [facility] Work Phone: Comment on above: Expected: 05/11/2024 , Expires: 05/11/2025 Start: 04-13-2024 End: 04-13-2024 Patient encounter procedure 04/13/2024 3:40 PM EST Routine [facility] [address] [place] [id number] Sam Hooker, DO [address] [place] [address] [facility] Start: 04-06-2024 End: 04-06-2024 Professional / ancillary services management 04/06/2024 2:30 PM EST Ancillary Procedure [facility] [address] [place] [address] [facility] Start: 03-18-2024 End: 03-18-2024 Patient encounter procedure 03/18/2024 3:30 PM EST Routine [facility] [address] [place] [phone] Sam Hooker, DO [address] [place] [address] [facility] Start: 03-18-2024 End: 03-18-2025 US for US OB INCOMPLETE ANATOMY Imaging Routine 26 weeks gestation of Encounter for follow-up ultrasound of anatomy Expected: 03/18/2024 (Approximate), Expires: 03/18/2025 [facility] Work Phone: Comment on above: Expected: 03/18/2024 (Approximate), Expires: 03/18/2025 Start: 02-19-2024 End: 02-19-2024 Patient encounter procedure 02/19/2024 3:10 PM EST Routine [facility] [address] [place] [phone] Sam Hooker, DO [address] [place], [place] [id number] [facility] Start: 02-19-2024 End: 02-18-2025 CBC panel - Blood by Automated count CBC Lab Routine Diabetes mellitus screening Expected: 02/19/2024 (Approximate), Expires: 02/18/2025 [facility] Work Phone: Comment on above: Expected: 02/19/2024 (Approximate), Expires: 02/18/2025 Start: 02-19-2024 End: 02-18-2025 Measurement of glucose 1 hour after glucose challenge for glucose tolerance test Glucose tolerance, 1 hour Lab Routine Diabetes mellitus screening Expected: 02/19/2024 (Approximate), Expires: 02/18/2025 [facility] Comment on above: Expected: 02/19/2024 (Approximate), Expires: 02/18/2025 Start: 01-29-2024 End: 01-29-2024 Professional / ancillary services management 01/29/2024 2:30 PM EDT Ancillary Procedure [facility] [address] [facility] [phone] [facility] Start: 12-23-2023 End: 12-23-2023 Patient encounter procedure 12/23/2023 3:10 PM EDT Routine [facility] [address] [facility] [phone] Sam Hooker, DO [address] [place] [address] [facility] Start: 12-23-2023 End: 01-22-2024 Alpha fetoprotein, maternal Alpha fetoprotein, maternal Lab Routine 14 weeks gestation of Expected: 12/23/2023 (Approximate), Expires: 01/22/2024 [facility] Comment on above: Expected: 12/23/2023 (Approximate), Expires: 01/22/2024 Start: 12-23-2023 End: 12-22-2024 US for US OB ANATOMY SINGLE W US OB CERVICAL LENGTH Imaging Routine Screening, , for anatomic survey Expected: 12/23/2023 (Approximate), Expires: 12/22/2024 [facility] Comment on above: Expected: 12/23/2023 (Approximate), Expires: 12/22/2024 Start: 12-08-2023 Influenza vaccination Influenza Vacc ine (#1) [facility] Start: 04-08-2022 DEPRESSION ASSESSMENT DEPRESSION ASS ESSMENT [facility] Start: 12-07-2021 Influenza vaccination INFLUENZA (#1) [facility] Start: 04-18-2021 COVID-19 VACCINE (2 - Booster for Vinny series) COVID-19 VACCINE (2 - Booster for Vinny series) [facility] Start: 02-03-2017 PAP TESTING PAP TESTING [facility] Start: 02-03-2015 Urine microalbumin profile DTAP,TDAP,TD (1 - Tdap) [facility] Start: 02-03-2014 HEPATITIS C SCREENING HEPATITIS C SC REENING [facility] Start: 02-03-2014 HIV SCREENING HIV SCREENING [facility] Start: 02-03-2010 PEDS TO ADULT TRANSITION ANNUAL ASSESSMENT PEDS TO ADULT TRANSITION ANNUAL ASSESSMENT [facility] Start: 2008 PEDS TO ADULT TRANSITION INITIAL DISCUSSION PEDS TO ADULT TRANSITION INITIAL DISCUSSION [facility] Start: 02-03-2007 HPV VACCINE (1 - 2-d ose series) HPV VACCINE (1 - 2-dose series) [facility] Start: 1996 HEPATITIS B (1 of 3 - 3-dose series) HEPATITIS B (1 of 3 - 3-dose series) [facility] CHLAMYDIA TRACHOMATI S (GENITO/STI) CHLAMYDIA TRACHOMATIS (GENITO/STI) Lab Routine Exposure to STD Ordered: 12/23/2023 [facility] Comment on above: Ordered: 12/23/2023 Neisseria gonorrhoea e DNA [Presence] in Unspecified specimen by LUCILA with probe detection Neisseria gonorrhea DNA probe, direct Lab Routine Exposure to STD Ordered: 12/23/2023 [facility] Comment on above: Ordered: 12/23/2023 SURESWAB(R) ADVANCED VAGINITIS PLUS, TMA SURESWAB(R) ADVANCED VAGINITIS PLUS, TMA Pathology and Cytology Routine Vaginal discharge Ordered: 12/23/2023 [facility] Work Phone: Comment on above: Ordered: 12/23/2023 End: 07-08-2025 US for US OB follow up transabdominal approach Imaging Routine Excessive growth affecting management of , antepartum, single or unspecified fetus 4 for 4 Occurrences starting 04/15/2024 until 10/13/2024 [facility] Work Phone: Comment on above: 4 for 4 Occurrences starting 04/15/2024 until 10/13/2024 Immunizations Immunization Date Immunization Notes Care Provider Fa cility 02-07-2020 influenza virus vacc ine, unspecified formulation Generic Provider [facility] Payers Date Payer Category Payer Private Health Insurance [id number] 2021 Private Health Insurance [id number] 1996 Unknown [id number] 2.16.84 0.1.255034.3.579.2.593 1996 Unknown [id number] 2.16.84 0.1.193843.3.579.2.593 1996 Unknown [id number] 2.16.84 0.1.906366.3.579.2.593 1996 Unknown [id number] 2.16.84 0.1.231899.3.579.2.593 1996 Unknown [id number] 2.16.84 0.1.896742.3.579.2.593 1996 Unknown [id number] 2.16.84 0.1.576562.3.579.2.1259 1996 Unknown [id number] 2.16.84 0.1.247380.3.579.2.1259 1996 Unknown [id number] 2.16.84 0.1.482111.3.579.2.1259 1996 Unknown [id number] 2.16.84 0.1.922966.3.579.2.1259 1996 Unknown [id number] 2.16.84 0.1.160323.3.579.2.1259 1996 Unknown [id number] 2.16.84 0.1.032983.3.579.2.1259 1996 Unknown [id number] 2.16.84 0.1.028566.3.579.2.9 1996 Unknown [id number] 2.16.840 .1.068353.3.579.2.1259 1996 Unknown [id number] 2.16.84 0.1.830636.3.579.2.9 1996 Unknown [id number] 2.16.84 0.1.470959.3.579.2.1259 1996 Unknown [id number] 2.16.84 0.1.879685.3.579.2.9 1996 Unknown [id number] 2.16.84 0.1.613559.3.579.2.9 1996 Unknown [id number] 2.16.84 0.1.388338.3.579.2.1259 1996 Unknown [id number] 2.16.84 0.1.555969.3.579.2.1259 1996 Unknown [id number] 2.16.84 0.1.326764.3.579.2.9 1996 Unknown [id number] 2.16.84 0.1.445595.3.579.2.1259 1959 Private Health Insurance [id number] 1959 Unknown [id number] Social History Date Type Detail Facility Start: 10-11-2018 End: 07-11-2023 Tobacco smoking status Never smoked tobacco (finding) [facility] Start: 07-11-2023 Sex Assigned At Female F [facility] Start: 06-22-2022 End: 07-11-2023 Tobacco use and exposure Smokeless tobacco non-user [facility] Start: 1996 Sex Assigned At Not on file C [facility] Start: 12-11-2023 End: 12-23-2023 Alcoholic beverage intake Lifetime non-drinker (finding) [facility] Start: 07-11-2023 History of Social function [facility] Start: 09-27-2023 [facility] Start: 1996 Sex assigned at Female [facility] Start: 12-11-2023 Gender identity Identifies as female gender (finding) [facility] Start: 01-22-2024 End: 05-11-2024 Alcoholic beverage intake Ex-drinker (finding) [facility] Start: 01-22-2024 Alcohol Comment 1-2 a month socially [facility] Goals Date Patient Goal Desired Activity /State Personal health goal Clinical Notes 08-08-2021 to 05-11-2024 Priya Lucero, DERMATOLOGY PHYSICIAN - 05/11/2024 3:40 PM Deniz Gilliland, DERMATOLOGY PHYSICIAN - 04/29/2024 2:40 PM Deniz Gilliland, DERMATOLOGY PHYSICIAN - 04/15/2024 2:40 PM Deniz Gilliland, DERMATOLOGY PHYSICIAN - 03/18/2024 3:30 PM EST Note Date & Type Note Facility 05-11-2024 History of Presen t illness Narrative Reason for Appointment: Patient ID: Liz Bermeo is a 29 y.o. female who presents for Routine Visit Patient presents today for Acute Visit. MEDICATIONS Current Outpatient Medications Medication Instructions aspirin 81 mg, Daily magnesium oxide (MAG-OX) 400 mg, Oral, Daily Vit-Fe Fumarate-FA ( 1 PLUS 1 PO) 1 each, Daily ALLERGIES Allergies Allergen Reactions Cefdinir Rash and Shortness of breath PROBLEMS Active Ambulatory Problems Diagnosis Date Noted Herpes labialis 04/15/2023 Generalized anxiety disorder ([facility]/HCC) 07/11/2023 Dyslipidemia (CMS/HCC) 07/11/2023 Metabolic syndrome 07/11/2023 PCOS (polycystic ovarian syndrome) 07/11/2023 Vitamin D deficiency 07/11/2023 Morbid obesity due to excess calories (CMS/HCC) 07/11/2023 Pharyngitis 07/11/2023 Encounter for follow-up ultrasound of anatomy 03/18/2024 Resolved Ambulatory Problems Diagnosis Date Noted No Resolved Ambulatory Problems Past Medical History: Diagnosis Date Back pain Cold sore SONYA (generalized anxiety disorder) (CMS/[facility]) History of migraine headaches Kidney stones Migraines (CMS/[facility]) Obesity HISTORY PAST MEDICAL HISTORY SOCIAL HISTORY Past Medical History: Diagnosis Date Back pain Cold sore Dyslipidemia (CMS/HCC) SONYA (generalized anxiety disorder) (CMS/HCC) History of [...] scalp DILATION AND CURETTAGE OF UTERUS 2020 [facility] KIDNEY STONE SURGERY 2016 Kidney Stones REVIEW OF SYSTEMS Review of Systems: Review of Systems Constitutional: Negative. HENT: Negative. Eyes: Negative. Respiratory: Negative. Cardiovascular: Negative. Gastrointestinal: Negative. Genitourinary: Negative. Musculoskeletal: Negative. Skin: Negative. Neurological: Negative. All other systems reviewed and are negative. Hematological: Negative. Endocrine: Negative. Allergic/Immunologic: Negative. OBJECTIVE Objective: Physical Exam Constitutional: Appearance: Normal appearance. She is normal weight. HENT: Head: Normocephalic. Cardiovascular: Rate and Rhythm: Normal rate. Pulses: Normal pulses. Pulmonary: Effort: Pulmonary effort is normal. Breath sounds: Normal breath sounds. Abdominal: Palpations: Abdomen is soft. Musculoskeletal: General: Normal range of motion. Neurological: General: No focal deficit present. Mental Status: She is alert and oriented to person, place, and time. Psychiatric: Mood and Affect: Mood normal. Behavior: Behavior normal. Thought Content: Thought content normal. Judgment: Judgment normal. Vitals and nursing note reviewed. Vitals: Estimated body mass index is 41.63 kg/m as calculated from the following: Height as of 08/12/23: 5' 7 . Weight as of this encounter: 265 lb 12.8 oz. BP: 124/82 Patient's last menstrual period was 06/30/2023. ASSESSMENT & PLAN ICD-10-CM 1. Third trimester Z34.93 2. 34 weeks gestation of Z3A.34 Return OB: Patient presents today for a routine obstetrics appointment. Patient is currently 34w3d . Patient states she is doing well but has complaints of being tired due to current . Patient has verbalizes frequent movement. labor precautions was discussed/given and patient was instructed to perform kick counts three times a day. No orders of the defined types were placed in this encounter. Follow Up: Patient is to return to office in 2 week for routine OB appointment. Documented by Priya Lucero LPN on behalf of: Sam Hooker DO documented in this encounter [facility] 04-29-2024 History of Presen t illness Narrative Reason for Appointment: Patient ID: Liz Kenyon is a 29 y.o. female who presents for Routine Visit [...] 07/11/2023 Morbid obesity due to excess calories (CMS/HCC) 07/11/2023 Pharyngitis 07/11/2023 Encounter for follow-up ultrasound of anatomy 03/18/2024 Resolved Ambulatory Problems Diagnosis Date Noted No Resolved Ambulatory Problems Past Medical History: Diagnosis Date Back pain Cold sore SONYA (generalized anxiety disorder) (CMS/HCC) History of migraine headaches Kidney stones Migraines (CMS/HCC) Obesity HISTORY PAST MEDICAL HISTORY SOCIAL HISTORY Past Medical History: Diagnosis Date Back pain Cold sore Dyslipidemia (CMS/HCC) SONYA (generalized anxiety disorder) (CMS/HCC) History of [...] scalp DILATION AND CURETTAGE OF UTERUS 2020 [facility] STONE SURGERY 2016 Kidney Stones [...] nursing note reviewed. Exam conducted with a flatbed owner operator present. Vitals: Estimated body mass index is 41.79 kg/m as calculated from the following: Height as of 08/12/23: 5' 7 . Weight as of this encounter: 266 lb 12.8 oz. BP: 130/80 Patient's last menstrual period was 06/30/2023. ASSESSMENT & PLAN ICD-10-CM 1. Third trimester Z34.93 POCT urinalysis dipstick manually resulted 2. 32 weeks gestation of Z3A.32 Return OB: Patient presents today for a routine obstetrics appointment. Patient is currently 32w5d . Patient states she is doing well but has complaints of being tired due to current . Patient has verbalizes frequent movement. labor precautions was discussed/given and patient was instructed to perform kick counts three times a day. Orders Placed This Encounter Procedures POCT urinalysis dipstick manually resulted Follow Up: Patient is to return to office in 2 week for routine OB appointment. Documented by Rosi Gilliland LPN on behalf of: Sam Hooker DO documented in this encounter [facility] 04-15-2024 History of Presen t illness Narrative Reason for Appointment: Patient ID: Liz Kenyon is a 29 y.o. female who [...] 07/11/2023 Morbid obesity due to excess calories (CMS/HCC) 07/11/2023 Pharyngitis 07/11/2023 Encounter for follow-up ultrasound of anatomy 03/18/2024 Resolved Ambulatory Problems Diagnosis Date Noted No Resolved Ambulatory Problems Past Medical History: Diagnosis Date Back pain Cold sore SOYNA (generalized anxiety disorder) (CMS/HCC) History of migraine headaches Kidney stones Migraines (CMS/HCC) Obesity HISTORY PAST MEDICAL HISTORY SOCIAL HISTORY Past Medical History: Diagnosis Date Back pain Cold sore Dyslipidemia (CMS/HCC) SONYA (generalized anxiety disorder) (CMS/HCC) History of [...] scalp DILATION AND CURETTAGE OF UTERUS 2020 [facility] STONE SURGERY 2016 Kidney Stones [...] nursing note reviewed. Exam conducted with a flatbed owner operator present. Vitals: Estimated body mass index is 41.16 kg/m as calculated from the following: Height as of 08/12/23: 5' 7 . Weight as of this encounter: 262 lb 12.8 oz. BP: 120/84 Patient's last menstrual period was 06/30/2023. ASSESSMENT & PLAN ICD-10-CM 1. 30 weeks gestation of Z3A.30 POCT urinalysis dipstick manually resulted 2. Third trimester Z34.93 POCT urinalysis dipstick manually resulted Return OB: Patient presents today for a routine obstetrics appointment. Patient is currently 30w5d . Patient states she is doing well but has complaints of being tired due to current . Patient has verbalizes frequent movement. labor precautions was discussed/given and patient was instructed to perform kick counts three times a day. Orders Placed This Encounter Procedures POCT urinalysis dipstick manually resulted Follow Up: Patient is to return to office in 2 week for routine OB appointment. Documented by Rosi Gilliland LPN on behalf of: Sam Hooker DO documented in this encounter [facility] 03-18-2024 History of Presen t illness Narrative Reason for Appointment: Patient ID: Liz Kenyon is a 29 y.o. female who presents for No chief complaint on file. Patient presents today for Return OB appointment. MEDICATIONS Current Outpatient Medications Medication Instructions aspirin 81 mg, Daily azithromycin (Zithromax Z-Kennedy) 250 MG tablet As directed magnesium oxide (MAG-OX) 400 mg, Oral, Daily Vit-Fe Fumarate-FA ( 1 PLUS 1 PO) 1 each, Daily ALLERGIES Allergies Allergen Reactions Cefdinir Rash and Shortness of breath PROBLEMS Active Ambulatory Problems Diagnosis Date Noted Herpes labialis 04/15/2023 Generalized anxiety disorder (CMS/HCC) 07/11/2023 Dyslipidemia (CMS/HCC) 07/11/2023 Metabolic syndrome 07/11/2023 PCOS (polycystic ovarian syndrome) 07/11/2023 Vitamin D deficiency 07/11/2023 Morbid obesity due to excess calories (CMS/HCC) 07/11/2023 Pharyngitis 07/11/2023 Encounter for follow-up ultrasound of anatomy 03/18/2024 Resolved Ambulatory Problems Diagnosis Date Noted No Resolved Ambulatory Problems Past Medical History: Diagnosis Date Back pain Cold sore SONYA (generalized anxiety disorder) (CMS/HCC) History of migraine headaches Kidney stones Migraines (CMS/HCC) Obesity HISTORY PAST MEDICAL HISTORY SOCIAL HISTORY Past Medical History: Diagnosis Date Back pain Cold sore Dyslipidemia (CMS/HCC) SONYA (generalized anxiety disorder) (CMS/HCC) History of [...] scalp DILATION AND CURETTAGE OF UTERUS 2020 [facility] STONE SURGERY 2016 Kidney Stones [...] nursing note reviewed. Exam conducted with a flatbed owner operator present. Vitals: Estimated body mass index is 40.69 kg/m as calculated from the following: Height as of 08/12/23: 5' 7 . Weight as of this encounter: 259 lb 12.8 oz. BP: 118/64 Patient's last menstrual period was 06/30/2023. ASSESSMENT & PLAN ICD-10-CM 1. 26 weeks gestation of Z3A.26 US OB INCOMPLETE ANATOMY POCT urinalysis dipstick manually resulted 2. Encounter for follow-up ultrasound of anatomy Z36.2 US OB INCOMPLETE ANATOMY Return OB: Patient presents today for a routine obstetrics appointment. Patient is currently 26w5d . Patient states she is doing well but has complaints of being tired due to current . Patient has verbalizes frequent movement. labor precautions was discussed/given and patient was instructed to perform kick counts three times a day. Orders Placed This Encounter Procedures US OB INCOMPLETE ANATOMY POCT urinalysis dipstick manually resulted Follow Up: Patient is to return to office in 2 week for routine OB appointment. Documented by Rosi Gilliland LPN on behalf of: Sam Hooker DO documented in this encounter [facility] 02-19-2024 History of Presen t illness Narrative Reason for Appointment: Patient ID: Liz Kenyon is a 29 y.o. female who [...] Noted Herpes labialis 04/15/2023 Generalized anxiety disorder ([facility]/HCC) 07/11/2023 Dyslipidemia ([facility]/HCC) 07/11/2023 Metabolic syndrome 07/11/2023 PCOS (polycystic ovarian syndrome) 07/11/2023 Vitamin D deficiency 07/11/2023 Morbid obesity due to excess calories ([facility]) 07/11/2023 Pharyngitis 07/11/2023 Resolved Ambulatory Problems Diagnosis Date Noted No Resolved Ambulatory Problems Past Medical History: Diagnosis Date Back pain Cold sore SONYA (generalized anxiety disorder) ([facility]) History of migraine headaches Kidney stones Migraines ([facility]) Obesity HISTORY PAST MEDICAL HISTORY SOCIAL HISTORY Past Medical History: Diagnosis Date Back pain Cold sore Dyslipidemia ([facility]) SONYA (generalized anxiety disorder) ([facility]) History of migraine headaches Kidney stones Migraines ([facility]) Obesity PCOS (polycystic ovarian syndrome) Vitamin [...] scalp DILATION AND CURETTAGE OF UTERUS 2020 [facility]ONE [facility]GERY 2016 Kidney Stones [...] nursing note reviewed. Exam conducted with a flatbed owner operator present. Vitals: Estimated body mass index is [...] by Rosi Gilliland LPN on behalf of: Sam Hooker DO documented in this encounter [facility] 01-22-2024 History of Presen t illness Narrative Reason for Appointment: Patient ID: Liz Kenyon is a 28 y.o. female who [...] Noted Herpes labialis 04/15/2023 Generalized anxiety disorder ([facility]) 07/11/2023 Dyslipidemia ([facility]) 07/11/2023 Metabolic syndrome 07/11/2023 PCOS (polycystic ovarian syndrome) 07/11/2023 Vitamin D deficiency 07/11/2023 Morbid obesity due to excess calories ([facility]) 07/11/2023 Pharyngitis 07/11/2023 Resolved Ambulatory Problems Diagnosis Date Noted No Resolved Ambulatory Problems Past Medical History: Diagnosis Date Back pain Cold sore SONYA (generalized anxiety disorder) ([facility]) History of migraine headaches Kidney stones Migraines ([facility]) Obesity HISTORY PAST MEDICAL HISTORY SOCIAL HISTORY Past Medical History: Diagnosis Date Back pain Cold sore Dyslipidemia ([facility]) SONYA (generalized anxiety disorder) ([facility]) History of migraine headaches Kidney stones Migraines ([facility]) Obesity PCOS (polycystic ovarian syndrome) Vitamin [...] scalp DILATION AND CURETTAGE OF UTERUS 2020 [facility]ONE [facility]GERY 2016 Kidney Stones [...] nursing note reviewed. Exam conducted with a flatbed owner operator present. Vitals: Estimated body mass index is [...] by Rosi Gilliland LPN on behalf of: Sam Hooker DO documented in this encounter [facility] 12-23-2023 History of Presen t illness Narrative Reason for Appointment: Patient ID: Liz Kenyon is a 28 y.o. female who presents for Routine Visit Patient presents today for Return OB appointment. MEDICATIONS Current Outpatient Medications Medication Instructions aspirin 81 mg, Oral, Daily Vit-Fe Fumarate-FA ( 1 PLUS 1 PO) 1 each, Oral, Daily ALLERGIES Allergies Allergen Reactions Cefdinir Rash and Shortness of breath PROBLEMS Active Ambulatory Problems Diagnosis Date Noted Herpes labialis 04/15/2023 Generalized anxiety disorder ([facility]) 07/11/2023 Dyslipidemia ([facility]) 07/11/2023 Metabolic syndrome 07/11/2023 PCOS (polycystic ovarian syndrome) 07/11/2023 Vitamin D deficiency 07/11/2023 Morbid obesity due to excess calories ([facility]) 07/11/2023 Pharyngitis 07/11/2023 Resolved Ambulatory Problems Diagnosis Date Noted No Resolved Ambulatory Problems Past Medical History: Diagnosis Date Back pain Cold sore SONYA (generalized anxiety disorder) (CMS/[facility]) History of migraine headaches Kidney stones Migraines ([facility]) Obesity HISTORY PAST MEDICAL HISTORY SOCIAL HISTORY Past Medical History: Diagnosis Date Back pain Cold sore Dyslipidemia ([facility]) SONYA (generalized anxiety disorder) (CMS/HCC) History of migraine headaches Kidney stones Migraines (CMS/HCC) Obesity PCOS (polycystic ovarian syndrome) Vitamin D deficiency Social History Tobacco Use Smoking status: Never Smokeless tobacco: Never Substance Use Topics Alcohol use: Never Drug use: Never FAMILY HISTORY Family History Problem Relation Name Age of Onset Hypertension Mother Hypertension Father Mental illness Father Hypertension Maternal Grandfather Cancer Maternal Grandfather SURGICAL HISTORY Past Surgical History: Procedure Laterality Date CYST REMOVAL 12/21/2022 on scalp DILATION AND CURETTAGE OF UTERUS 2020 [facility] STONE SURGERY 2016 Kidney Stones REVIEW OF SYSTEMS Review of Systems: Review of Systems All other systems reviewed and are negative. OBJECTIVE Objective: Physical Exam Constitutional: Appearance: Normal [...] nursing note reviewed. Exam conducted with a flatbed owner operator present. Vitals: Estimated body mass index is 40 kg/m as calculated from the following: Height as of 08/12/23: 5' 7 . Weight as of this encounter: 255 lb 6.4 oz. BP: 120/70 Patient's last menstrual period was 06/30/2023. ASSESSMENT & PLAN ICD-10-CM 1. 14 weeks gestation of Z3A.14 POCT urinalysis dipstick manually resulted Alpha fetoprotein, maternal Alpha fetoprotein, maternal CANCELED: POCT urinalysis dipstick manually resulted 2. Exposure to STD Z20.2 CHLAMYDIA TRACHOMATIS (GENITO/STI) Neisseria gonorrhea DNA probe, direct 3. Vaginal discharge N89.8 SURESWAB(R) ADVANCED VAGINITIS PLUS, TMA 4. Screening, , for anatomic survey Z36.89 US OB ANATOMY SINGLE W US OB CERVICAL LENGTH Annual Exam: Patient presents today for an annual exam. Patient states she is doing well and has no complaints. Cultures obtained at this time without difficulty. Antibiotic sent at this time for urine culture. Orders Placed This Encounter Procedures US OB ANATOMY SINGLE W US OB CERVICAL LENGTH CHLAMYDIA TRACHOMATIS (GENITO/STI) Neisseria gonorrhea DNA probe, direct Alpha fetoprotein, maternal POCT urinalysis dipstick manually resulted Follow Up: Patient is to return in one year for annual unless needed otherwise. Documented by Remedios Naranjo LPN on behalf of: Sam Hooker DO documented in this encounter [facility] 06-22-2022 History of Presen t illness Narrative OPENED IN ERROR documented in this encounter [facility] 08-23-2021 Note PROCEDURE: XR FINGER MIN 2 [...] by: CARMEN SOLORIO Date: 2021-08-23 14:56 [facility] 08-08-2021 Hospital Discharg e instructions Patient Education 08/08/2021 15:44:15 Animal Bite, Adult, Inyc-lp-Vqat Animal Bite, Adult Animal bite wounds can [...] cannot use soap and water, use hand card clothier. ?Change your bandage as told by your [...] a bad smell. Medicines Take or apply [id number]-[id number] and prescription medicines only as told by [...] 03/25/2006 Document Revised: 03/20/2018 Document Reviewed: 10/03/2017 [employer] Patient Education 2020 [employer]. Follow Up Care 08/08/2021 14:30:18 With:MICHAEL HELMS Address: [address] [place] [address] Business (1) When:08/11/2021 15:01:11 [facility] Evaluation + Plan note No data available for this section [facility] Evaluation note Diagnosis OPENED IN ERROR- Primary To allow closing an encounter opened in error (used in SmartSet) [facility] Diagnosis Pharyngitis, unspecified etiology- Primary Second trimester state, incidental 18 weeks gestation of documented in this encounter [facility]* Diagnosis Pharyngitis, unspecified etiology- Primary 22 weeks gestation of Second trimester state, incidental Diabetes mellitus screening Screening for diabetes mellitus documented in this encounter [facility]* Diagnosis 14 weeks gestation of Exposure to STD Vaginal discharge Leukorrhea, not specified as infective Screening, , for anatomic survey Encounter for anatomic survey UTI symptoms documented in this encounter [facility]* Diagnosis Pharyngitis, unspecified etiology- Primary 26 weeks gestation of Encounter for follow-up ultrasound of anatomy documented in this encounter [facility]* Diagnosis Pharyngitis, unspecified etiology- Primary 30 weeks gestation of Third trimester state, incidental Excessive growth affecting management of , antepartum, single or unspecified fetus documented in this encounter [facility]* Diagnosis Pharyngitis, unspecified etiology- Primary Third trimester state, incidental 32 weeks gestation of documented in this encounter [facility]* Diagnosis Pharyngitis, unspecified etiology- Primary Third trimester state, incidental 34 weeks gestation of size inconsistent with dates documented in this encounter [facility] Healthcare Summary Purpose Family History No Family [...] content) DATE CREATED AUTHOR 08/12/2021 Lm Zamorano [facility] DATE CREATED AUTHOR AUTHOR'S ORGANIZ ATION 09/12/2021 [facility] DATE CREATED AUTHOR AUTHOR'S ORGANIZ ATION 08/15/2022 [facility] DATE CREATED AUTHOR AUTHOR'S ORGANIZ ATION 11/26/2023 [facility] EPIC DATE CREATED AUTHOR AUTHOR'S ORGANIZ ATION 05/13/2024 [facility] EPIC Source Comments (unrecognize d section and content) In the event this informatio n is protected by the Federal Confidentiality of Alcohol and Drug Abuse Patient Records regulations: The Federal rules restrict any use of the information to criminally investigate or prosecute any alcohol or drug abuse patient.[facility] Reason for Visit (unrecogniz ed section and content) Reason Comments Opened In Error Reason Comments Routine Visit Care Teams (unrecognized sec tion and content) Fire Equipment Operator Relationship Specialty Start Date End Date Michael Helms [address] [place] [address] PCP - General Family Medicine 06/08/22 Fire Equipment Operator Relationship Specialty Start Date End Date Michael Helms MD [address] [place] [address] PCP - General Family Medicine 07/11/23 Fire Equipment Operator Relationship Specialty Start Date End Date Michael Helms MD [address] [place] [phone] PCP - General Family Medicine 07/11/23 Fire Equipment Operator Relationship Specialty Start Date End Date Michael Helms MD [address] [place] [phone] PCP - General Family Medicine 07/11/23 Fire Equipment Operator Relationship Specialty Start Date End Date Michael Helms MD [address] [place] [phone] PCP - General Family Medicine 07/11/23 Fire Equipment Operator Relationship Specialty Start Date End Date Michael Helms MD [address] [place] [phone] PCP - General Family Medicine 07/11/23 Fire Equipment Operator Relationship Specialty Start Date End Date Michael Helms MD [address] [place] [address] PCP - General Family Medicine 07/11/23 Fire Equipment Operator Relationship Specialty Start Date End Date Michael Helms MD [address] [place] [phone] PCP - General Family Medicine 07/11/23 Fire Equipment Operator Relationship Specialty Start Date End Date Michael Helms MD [address] [place] [address] PCP - General Family Medicine 07/11/23 Fire Equipment Operator Relationship Specialty Start Date End Date Michael Helms MD [address] [place] [address] PCP - General Family Medicine 07/11/23 Fire Equipment Operator Relationship Specialty Start Date End Date Michael Helms MD [address] [place] [phone] PCP - General Family Medicine 07/11/23 Fire Equipment Operator Relationship Specialty Start Date End Date Michael Helms MD [address] [place] [address] PCP - [facility] 07/11/23 Fire Equipment Operator Relationship Specialty Start Date End Date Michael Helms MD [address] [place] [phone] PCP - [facility] 07/11/23 FOR RECORDS PERTAINING TO PATIENTS WHO [...] BE BASED ON THE PRIMARY CLINICAL RECORDS. [facility] [employer] [facility]. provides no warranty or guarantee of the accuracy or completeness of information in this document.
== END 2024-05-26 20:27 | disposition home or self-care (01) ==
LOC: LAB 20:26
PROVIDERS: PCP Family Medicine; Visit Provider Obstetrics & Gynecology
DX: Z34.93 Encounter for supervision of normal pregnancy, unspecified, third trimester (principal)
CPT/HCPCS: 36415; 87081

== ENCOUNTER 2024-06-03 16:54 | Outpatient (OUT) | payer OTHER, SELFPAY ==
--- NOTE | 2024-06-03 17:06 | US_ITS ---
[place] [id number] Patient Name: BROOKLYNN ALVARES MRN: [id number] date: 1995 Sex: F Assigned Patient Location: [facility] Current Patient Location: [facility] Accession/Order Number: [id number] Exam Date: 06/03/2024 19:12 Report Date: 06/03/2024 19:15 At the request of: CELESTE JACINTO DO Procedure: US OB BPP w non-stress Exam: Biophysical profile. Reason for exam: Elevated blood pressure. COMPARISON: None. TECHNIQUE: Transabdominal imaging of the gravid uterus was obtained. FINDINGS: The car mover reports the BPP 8 out of 8. Polyhydramnios is present with MARIA ANTONIA measuring 27 cm. heart rate measuring 145 bpm. US/US OB BPP w non-stress IMPRESSION: BPP 8 out of 8. Polyhydramnios. Impression dictated by: Mann Law Jr., D.O.06/03/2024 7:15 PM Dictation Location: [facility] Electronically authenticated by: [id number] Y Date: 06/03/2024 19:15
[2024-06-03 18:07] VITALS: BP 127/85; PULSE 83
== END 2024-06-03 18:55 | disposition home or self-care (01) ==
LOC: FBCO 16:55 → FBC 17:00
PROVIDERS: PCP Family Medicine; Visit Provider Obstetrics & Gynecology
DX: O40.3XX0 Polyhydramnios, third trimester, not applicable or unspecified (principal); Z3A.37 37 weeks gestation of pregnancy
CPT/HCPCS: 59025; 76818

== ENCOUNTER 2024-06-10 14:34 | Outpatient (OUT) | payer OTHER, SELFPAY ==
--- NOTE | 2024-06-10 14:36 | US_ITS ---
[address] [address] Patient Name: BROOKLYNN ALVARES MRN: [id number] date: 1995 Sex: F Assigned Patient Location: Current Patient Location: Accession/Order Number: [id number] Exam Date: 06/10/2024 22:24 Report Date: 06/10/2024 22:27 At the request of: CELESTE JACINTO DO Procedure: US OB growth Growth ultrasound. Reason for exam: Excessive growth. COMPARISON: Ultrasound 01/29/2024. TECHNIQUE: Transabdominal imaging of the gravid uterus was obtained. FINDINGS: Single live intrauterine measuring 38 weeks 4 days by anatomic measurements. Head circumference is greater than 97th percentile. Abdominal circumference is at 78th percentile. Estimated weight is 3717 g. MARIA ANTONIA is normal at 23.02 cm. heart rate is 1 57 bpm. position is cephalic at time of scanning. US/US OB growth IMPRESSION: Single live intrauterine measuring 38 weeks 4 days by anatomic measurements. Impression dictated by: Mann Law Jr., D.O.06/10/2024 10:27 PM Dictation Location: [facility] Electronically authenticated by: [id number] Y Date: 06/10/2024 22:27
== END 2024-06-10 14:35 | disposition home or self-care (01) ==
LOC: US 14:34
PROVIDERS: PCP Family Medicine; Visit Provider Obstetrics & Gynecology
DX: O36.63X0 Maternal care for excessive fetal growth, third trimester, not applicable or unspecified (principal); Z3A.38 38 weeks gestation of pregnancy
CPT/HCPCS: 76816

== ENCOUNTER 2024-06-17 15:55 | Observation (INO) | payer OTHER, SELFPAY ==
[2024-06-17 16:33] VITALS: BP 125/82; PULSE 99
[2024-06-17 16:46] VITALS: BP 119/77; PULSE 101
[2024-06-17 16:58] LABS: Basophils Percent Auto 0.3 % (0.2-2.0); Eosinophils Absolute Auto 0.1 10^3/uL (0.0-0.7); Eosinophils Percent Auto 0.6 % (0.9-7.0); Hematocrit 32.9 % (36.0-48.0); Hemoglobin 10.9 g/dL (12.0-16.0); Immature Granulocytes Abs Auto 0.04 10^3/uL (0.00-0.03); Immature Granulocytes Pct Auto 0.3 % (0.0-0.5); Lymphocytes Absolute Auto 1.8 10^3/uL (1.2-3.8); Lymphocytes Percent Auto 14.9 % (20.5-60.0); Mean Corpuscular HGB Conc 33.1 g/dL (29.9-35.2); Mean Corpuscular Hemoglobin 28.5 pg (26.7-34.0); Mean Corpuscular Volume 86.1 fL (81.0-99.0); Mean Platelet Volume 11.7 fL (9.5-13.5); Monocytes Absolute Auto 1.2 10^3/uL (0.3-0.8); Monocytes Percent Auto 10.2 % (1.7-12.0); Neutrophils Absolute Auto 8.8 10^3/uL (1.4-6.5); Neutrophils Percent Auto 73.7 % (43.0-75.0); Platelet Count 235 10^3/uL (150-450); Red Blood Count 3.82 10^6/uL (4.20-5.40); Red Cell Distribution Width 12.6 % (11.0-15.0)
[2024-06-17 17:01] VITALS: BP 117/77; PULSE 98
[2024-06-17 17:16] VITALS: BP 126/79; PULSE 82
[2024-06-17 17:16] LABS: Alanine Aminotransferase 10 U/L (14-59); Albumin Globulin Ratio 0.7; Albumin Level 2.6 g/dL (3.4-5.0); Alkaline Phosphatase 118 U/L (46-116); Anion Gap 12.9; Aspartate Amino Transferase 12 U/L (15-37); BUN Creatinine Ratio 12.3; Bilirubin Total 0.2 mg/dL (0.2-1.0); Calcium 9.6 mg/dL (8.5-10.1); Carbon Dioxide 22.1 mmol/L (21.0-32.0); Chloride 106 mmol/L (98-107); Estimated GFR (African America >60 (>=60 mL/min/1.73m^2); Estimated GFR (Non-African Ame >60 (>=60 mL/min/1.73m^2); Globulin 3.8 g/dL; Glucose 83 mg/dL (74-106); Sodium 137 mmol/L (136-145); Total Protein 6.4 g/dL (6.4-8.2)
[2024-06-17 17:31] VITALS: BP 126/79; PULSE 99
[2024-06-17 17:46] VITALS: BP 130/78; PULSE 88
[2024-06-17 18:14] LABS: Creatinine Urine Random 160.56 mg/dL (20.00-300.00); Protein Creatinine Ratio Urine 0.06; Total Protein Urine Random 9.2 mg/dL (<=11.9)
--- NOTE | 2024-06-17 18:54 | P.OBLDTN_ITS ---
OB - Triage/Final Diagnosis Visit Information Date of evaluation: 06/17/24 Reason for evaluation: other Comments/Additional reasons for admission: PATIENT WAS SENT OVER TO [facility] BY OFFICE. HAD ELEVATED BLOOD PRESSURE. BLOOD PRESSURES HERE ALL NORMAL. PREECLAMPSIA WORKUP ALL NORMAL( CMP, CBC AND DIFF, URINALYSIS FOR P:C RATION). IS FOR INDUCTION ON SATURDAY FOR POST DATES. CERVIX CHECKED, MILLER SCORE 2. EXPLAINED THE MEANING OF THE MILLER SCORE TO PATIENT. WILL HAVE PATIENT COME IN A 12 MIDNIGHT ON SATURDAY FOR CERIVIDIL. SHE DOESN'T WANT TO COME IN EARLIER WANTS TO AVOID BEING CHARGED FOR THE DAY. EXPLAINED HOW CERVIDIL WORKS TO MAKE THE CERVIX RESPONSIVE TO PITOCIN INDUCED CONTRACTIONS THE FOLLOWING DAY. Evaluation Cervical dilation (cm): 0 Cervical effacement (%): 50 Laboratory results: Laboratory Tests 06/17/24 06/17/24 16:54 17:50 WBC 12.0 H RBC 3.82 L Hgb 10.9 L Hct 32.9 L MCV 86.1 MCH 28.5 MCHC 33.1 RDW 12.6 Plt Count 235 MPV 11.7 Neut % (Auto) 73.7 Lymph % (Auto) 14.9 L [place] % (Auto) 10.2 Eos % (Auto) 0.6 L Baso % (Auto) 0.3 Neut # (Auto) 8.8 H Lymph # (Auto) 1.8 [place] # (Auto) 1.2 H Eos # (Auto) 0.1 Baso # (Auto) 0.0 Abs Immat Gran (auto) 0.04 H Imm/Tot Granulo (auto) 0.3 Sodium 137 Potassium 4.0 Chloride 106 Carbon Dioxide 22.1 Anion Gap 12.9 BUN 7.0 Creatinine 0.57 Est GFR ( Amer) >60 Est GFR (Non-Af Amer) >60 BUN/Creatinine Ratio 12.3 Glucose 83 Calcium 9.6 Total Bilirubin 0.2 AST 12 L ALT 10 L Alkaline Phosphatase 118 H Total Protein 6.4 Albumin 2.6 L Globulin 3.8 Albumin/Globulin Ratio 0.7 Ur Random Creatinine 160.56 U Random Total Protein 9.2 Protein/Creatinin Ratio 0.06 Vital signs: Vital Signs - 24 hr 06/17/24 16:33 06/17/24 16:46 06/17/24 17:01 Pulse Rate 99 H 101 H 98 H Blood Pressure 125/82 119/77 117/77 06/17/24 17:16 06/17/24 17:31 06/17/24 17:46 Pulse Rate 82 99 H 88 Blood Pressure 126/79 126/79 130/78 heart rate baseline: 145 bed bug exterminator variability: Moderate (6-25 bpm) monitor accelerations: Present Final Diagnosis (1) Post-dates : Status: Acute Problem details: MILLER SCORE 2, WILL COME IN SATURDAY AT MIDNIGHT FOR CERVIDIL INDUCTION (2) High blood pressure: Problem details: HAD ONE ELEVATED BLOOD PRESSURE IN OFFICE. EVALUATED ON [facility]. BLOOD PRESSURES ALL NORMAL. PREECLAMPSIA WORKUP NEG. PATIENT INFORMED AND GIVEN INSTRUCTIONS FOR CERVIDIL INDUCTION SATURDAY NIGHT AT MIDNIGHT.
--- NOTE | 2024-06-17 19:00 | PC.NURSE ---
1800 Dr Hess on unit. Given report on maternal blood pressures and results of labs. gives order for release home. Dr into room, SVE per and gives Delarosa's score of 2. Plan for pt to return 06/19/2024 at midnight for IOL as planned prior to today's visit. Pt states okay, with the plan, still deciding on the induction part Pt and denies further concerns. Precautions given for s/s of labor and when to return for care. 1855 Leaves ambulatory.
== END 2024-06-17 19:59 | disposition home or self-care (01) ==
LOC: FBC 16:30
PROVIDERS: Admitting Provider Obstetrics & Gynecology; PCP Family Medicine; Visit Provider Obstetrics & Gynecology
DX: O99.891 Other specified diseases and conditions complicating pregnancy (principal); R03.0 Elevated blood-pressure reading, without diagnosis of hypertension; O48.0 Post-term pregnancy; Z3A.00 Weeks of gestation of pregnancy not specified
CPT/HCPCS: 36415; 80053; 82570; 84156; 85025; G0378; G0379

== ENCOUNTER 2024-06-19 00:13 | Inpatient (IN) | payer OTHER, SELFPAY ==
[2024-06-19] VITALS (57 sets, daily range): BP systolic 85–135; BP diastolic 58–88; PULSE 71–113; TEMP 35.9–37.2; O2SAT 98–99
[2024-06-19] MEDS: DINOPROSTONE 10 MG VAG INSERT.ER VAGINAL (01:13)
[2024-06-19 01:28] LABS: Hematocrit 32.2 % (36.0-48.0); Hemoglobin 10.8 g/dL (12.0-16.0); Mean Corpuscular HGB Conc 33.5 g/dL (29.9-35.2); Mean Corpuscular Hemoglobin 29.1 pg (26.7-34.0); Mean Corpuscular Volume 86.8 fL (81.0-99.0); Mean Platelet Volume 11.9 fL (9.5-13.5); Platelet Count 225 10^3/uL (150-450); Red Blood Count 3.71 10^6/uL (4.20-5.40); Red Cell Distribution Width 12.8 % (11.0-15.0); White Blood Count 13.2 10^3/uL (4.0-11.0)
[2024-06-19 01:39] LABS: Amphetamine Screen Urine NEGATIVE (NEGATIVE); Barbiturates Screen Urine NEGATIVE (NEGATIVE); Benzodiazepines Screen Urine NEGATIVE (NEGATIVE); Buprenorphine Screen Urine NEGATIVE (NEGATIVE); Cannabinoid Screen Urine NEGATIVE (NEGATIVE); Cocaine Screen Urine NEGATIVE (NEGATIVE); Methadone Screen Urine NEGATIVE (NEGATIVE); Methamphetamines Screen Urine NEGATIVE (NEGATIVE); Opiate Screen Urine NEGATIVE (NEGATIVE); Oxycodone Screen Urine NEGATIVE (NEGATIVE); Phencyclidine Screen Urine NEGATIVE (NEGATIVE); Tricyclic Antidepressant Urine NEGATIVE (NEGATIVE)
[2024-06-19] MEDS: CITRIC ACID/SODIUM CITRATE 30 ML SOLUTION ORACIT SHOHL'S SOLN PO (15:40)
[2024-06-19] MEDS: FAMOTIDINE/PF 20 MG/2 ML VIAL IV (15:40)
[2024-06-19] MEDS: METOCLOPRAMIDE HCL 10 MG/2 ML VIAL IVP (15:40)
[2024-06-19] MEDS: CLINDAMYCIN PHOSPHATE/D5W 900 MG/50 ML PREMIX 100 MG IV ×2 (15:49→22:58)
[2024-06-19] MEDS: LACTATED RINGER'S SOLUTION 1,000 ML 50 ML IV (16:28)
--- NOTE | 2024-06-19 16:44 | PM.ONB ---
Brief Operative Note Date of procedure: 06/19/24 Pre-op diagnosis general: failure to induce, asynclitic presentation Post-op diagnosis: same as pre-op Procedure: NAME OF PROCEDURE: [ section ] PROCEDURE: Patient was taken back to the Operating Room where she was given a spinal anesthesia with Duramorph without difficulty. She was prepped and draped in the normal sterile fashion. A Pfannenstiel skin incision was then made 2 cm above the symphysis pubis and carried down to underlying rectus fascia using a Bovie. The fascia was incised in the midline and extended laterally using Mercedes scissors. Two Josue clamps were placed on the superior aspect of the fascia and dissected off the underlying rectus muscles. The same was performed on the inferior aspect as well. The muscles were then in the midline. Peritoneum was identified and entered bluntly. The peritoneum was then extended superiorly and inferiorly with good visualization of the bladder. The bladder blade was inserted. A low transverse incision was made on the patient's uterus and extended laterally digitally. The was then delivered atraumatically after the bladder blade was removed in the cephalic position. The cord was clamped and cut. Cord blood was obtained. The was handed off to awaiting team. The patient's placenta was spontaneously delivered. The uterus was then exteriorized. The uterus was cleared of all clots and debris. The bladder blade was reinserted. The patient's uterine incision was closed using #0 Vicryl in a running lock fashion. Excellent hemostasis was assured. The uterus was then returned to the patient's abdomen. The patient's abdomen was copiously irrigated using warm saline. Peritoneal gutters were cleared of all clots and debris. Again excellent hemostasis was assured. The patient's peritoneum was closed using 3-0 Vicryl in a running fashion. The patient's fascia was closed using #0 Vicryl in a running fashion. The patient's skin was closed using 4-0 Vicryl subcuticularly. The patient tolerated the procedure well. Sponge, lap, and needle counts were correct x2. The patient was taken to the Recovery Room in stable condition. Anesthesia: spinal Surgeon: Sam Hooker Instructor Adjunct Surgical Technician: Alena Doherty Estimated blood loss (mL): 575 Pathology: none sent Condition: stable Disposition: PACU Urinary Catheter Management Urinary Catheter Management Urethral: Cath placed during this visit: no
--- NOTE | 2024-06-19 16:45 | PM.OBPRCCS ---
Procedure Pre-op/Post-op diagnoses: Pre-Op/Post-Op Diagnoses Operation Date: 06/19/24 16:00 <No data on this case meets the specified criteria> Procedure: Procedures Operation Date: 06/19/24 16:00 Actual Procedure Side Surgeon p Not Applicable Sam Hooker DO [employer] Prescription Clerk: Alena Doherty Estimated blood loss (mL): 575 Disposition: PACU Anesthesia type: Spinal
[2024-06-19] MEDS: OXYTOCIN/0.9 % SODIUM CHLORIDE 20 UNITS/1,000 ML PLAST..BAG 125 UNIT IV (17:26)
[2024-06-19] MEDS: KETOROLAC TROMETHAMINE 30 MG/ML VIAL IVP (19:08)
[2024-06-20] VITALS (9 sets, daily range): BP systolic 112–135; BP diastolic 67–89; PULSE 88; TEMP 36.1–36.8; O2SAT 99
[2024-06-20] MEDS: KETOROLAC TROMETHAMINE 30 MG/ML VIAL IVP ×4 (06:08→23:33)
[2024-06-20] MEDS: ENOXAPARIN SODIUM 40 MG/0.4 ML SYRINGE SUBQ (06:08)
[2024-06-20 07:23] LABS: Basophils Absolute Auto 0.1 10^3/uL (0.0-0.1); Basophils Percent Auto 0.4 % (0.2-2.0); Eosinophils Absolute Auto 0.1 10^3/uL (0.0-0.7); Eosinophils Percent Auto 0.7 % (0.9-7.0); Hematocrit 27.6 % (36.0-48.0); Hemoglobin 9.2 g/dL (12.0-16.0); Immature Granulocytes Abs Auto 0.06 10^3/uL (0.00-0.03); Immature Granulocytes Pct Auto 0.4 % (0.0-0.5); Lymphocytes Absolute Auto 2.1 10^3/uL (1.2-3.8); Lymphocytes Percent Auto 14.8 % (20.5-60.0); Mean Corpuscular HGB Conc 33.3 g/dL (29.9-35.2); Mean Corpuscular Hemoglobin 28.9 pg (26.7-34.0); Mean Corpuscular Volume 86.8 fL (81.0-99.0); Mean Platelet Volume 11.5 fL (9.5-13.5); Monocytes Absolute Auto 1.2 10^3/uL (0.3-0.8); Monocytes Percent Auto 8.4 % (1.7-12.0); Neutrophils Absolute Auto 10.7 10^3/uL (1.4-6.5); Neutrophils Percent Auto 75.3 % (43.0-75.0); Platelet Count 182 10^3/uL (150-450); Red Blood Count 3.18 10^6/uL (4.20-5.40); Red Cell Distribution Width 12.9 % (11.0-15.0); White Blood Count 14.2 10^3/uL (4.0-11.0)
[2024-06-20] MEDS: DOCUSATE SODIUM 100 MG CAPSULE PO (09:17)
--- NOTE | 2024-06-20 09:21 | PM.OBPN ---
OB - PN: Subj Subjective Patient comments: no complaints and pain well controlled [place] status: doing well Exam Constitutional Vital Signs, click to edit/add: Last Vital Signs Temp 98.2 F 06/20/24 04:01 Pulse 81 06/19/24 22:28 Resp 18 06/20/24 04:01 BP 130/88 06/19/24 23:37 Pulse Ox 99 06/19/24 19:00 O2 Del Method Room Air 06/20/24 04:01 Common normals: no apparent distress and oriented x3 GI Inspection: normal to inspection Other: Fundus - firm below umbilicus Incision healing well with steristrips Other: perineum - minimal bleeding Extremity Common normals: normal to inspection Neuro Common normals: oriented x3 Sensorium/orientation: awake and alert Psych Common normals: mental status grossly normal Results Labs Labs: Short CBC 06/20/24 Range/Units 07:15 WBC 14.2 H (4.0-11.0) 10^3/uL Hgb 9.2 L (12.0-16.0) g/dL Hct 27.6 L (36.0-48.0) % Plt Count 182 (150-450) 10^3/uL Urinary Catheter Management Urinary Catheter Management Urethral: Cath placed during this visit: no OB - PN: A/P Assessment and Plan (1) Term : Plan - day: 1 Plan: routine postop care Comment: add slow Fe daily Time Spent with Patient Time: Total time spent is greater than 50% in coordination of care (as documented) at patient's floor/unit and/or counseling patient: Total time spent with greater than 50% in coordination of care (as documented) at patient's floor/unit and/or counseling patient: less than 15 minutes
--- NOTE | 2024-06-20 12:19 | RESP.RT ---
Patient completed on own.
[2024-06-21] MEDS: ACETAMINOPHEN 500 MG TABLET 1000 MG PO ×2 (04:59→15:23)
[2024-06-21] MEDS: ENOXAPARIN SODIUM 40 MG/0.4 ML SYRINGE SUBQ (06:06)
[2024-06-21] MEDS: IBUPROFEN 400 MG TABLET 800 MG PO ×2 (08:47→17:03)
[2024-06-21] MEDS: DOCUSATE SODIUM 100 MG CAPSULE PO ×2 (08:48→21:58)
--- NOTE | 2024-06-21 08:53 | PM.OBPN ---
OB - PN: Subj Subjective Patient comments: no complaints and flatus present Narrative: working on latching/breast feeding with Baby Exam Constitutional Vital Signs, click to edit/add: Last Vital Signs Temp 97.3 F L 06/20/24 23:28 Pulse 88 06/20/24 23:27 Resp 16 06/20/24 23:28 BP 120/67 06/20/24 23:27 Pulse Ox 99 06/20/24 18:09 O2 Del Method Room Air 06/20/24 23:28 Common normals: no apparent distress GI Inspection: normal to inspection Other: perineum - minimal bleeding Neuro Common normals: oriented x3 Psych Common normals: mental status grossly normal Urinary Catheter Management Urinary Catheter Management Urethral: Cath placed during this visit: no OB - PN: A/P Assessment and Plan (1) Term : Plan - day: 2 Plan: routine postop care Time Spent with Patient Time: Total time spent is greater than 50% in coordination of care (as documented) at patient's floor/unit and/or counseling patient: Total time spent with greater than 50% in coordination of care (as documented) at patient's floor/unit and/or counseling patient: less than 15 minutes
[2024-06-21 11:28] VITALS: BP 129/85
[2024-06-21 11:30] VITALS: TEMP 36.7
--- NOTE | 2024-06-21 13:15 | RESP.RT ---
Per nursing, pt does do on own.
[2024-06-21] MEDS: OXYCODONE HCL/ACETAMINOPHEN 5MG/325MG 1 TAB PO (21:57)
[2024-06-22] VITALS: TEMP 36.7
[2024-06-22 00:01] VITALS: BP 123/75
[2024-06-22] MEDS: IBUPROFEN 400 MG TABLET 800 MG PO (02:23)
--- NOTE | 2024-06-22 07:24 | W.PC.ACHO ---
Registration Status: ADM IN Primary Language: Sammarinese Preferred Language: Sammarinese 0715- Report given to Henny CHAN. Care relinquished. Active Medications Generic Name Dose Route Start Last Admin Trade Name Freq PRN Reason Stop Dose Admin Acetaminophen 1,000 mg 06/21/24 04:30 06/21/24 15:23 Acetaminophen 500 Mg Tablet PO 1,000 mg Q6H PRN Administration Pain Al Hydroxide/Mg Hydroxide 2,400 mg 06/19/24 16:46 Magnesium Hydroxide 2,400 Mg/10 Ml Oral.Susp PO Q6H PRN Dyspepsia Docusate Sodium 100 mg 06/20/24 09:00 06/21/24 21:58 Docusate Sodium 100 Mg Capsule PO 100 mg BID BRITTANIE Administration Enoxaparin Sodium 40 mg 06/20/24 06:00 06/21/24 06:06 Enoxaparin Sodium 40 Mg/0.4 Ml Syringe SUBQ 40 mg Q24H BRITTANIE Administration Sodium Chloride 1,000 mls @ 125 mls/hr 06/19/24 16:00 Sodium Chloride 0.9% 1,000 Ml IV .Q8H BRITTANIE Promethazine HCl 25 mg/ Sodium 51 mls @ 204 mls/hr 06/19/24 16:46 Chloride IV Q6H PRN Nausea And Vomiting Sodium Chloride 1,000 mls @ 125 mls/hr 06/19/24 16:46 Sodium Chloride 0.9% 1,000 Ml IV .Q8H PRN IF NOT TOLERATING PO FLUIDS OR Ibuprofen 800 mg 06/19/24 16:46 06/22/24 02:23 Ibuprofen 400 Mg Tablet PO 800 mg Q8H PRN Administration Pain Ondansetron HCl 4 mg 06/19/24 16:46 Ondansetron Pf 4 Mg/2 Ml Vial IV Q6H PRN Nausea And Vomiting Ondansetron HCl 4 mg 06/19/24 16:46 Ondansetron 4 Mg Rapdis Tablet PO Q6H PRN Nausea And Vomiting Oxycodone/Acetaminophen 1 tab 06/19/24 16:46 06/21/24 21:57 Oxycodone Hcl/Acetaminophen 5mg/325mg PO 1 tab Q4H PRN Administration Pain Scale 4-6 Oxycodone/Acetaminophen 2 tab 06/19/24 16:46 Oxycodone Hcl/Acetaminophen 5mg/325mg PO Q4H PRN Pain Scale 7-10 Senna 17.2 mg 06/19/24 20:00 Sennosides 8.6 Mg Tablet PO QHS PRN Constipation Simethicone 80 mg 06/19/24 16:46 Simethicone 80 Mg Tab.Chew PO QID PRN Abdominal Distention Respiratory Oxygen Delivery Method Room Air Oxygen Delivery Method Room Air Cardiology Heart Sounds Strong,Regular Renal Bladder Pattern Continent
--- NOTE | 2024-06-22 07:36 | P.OBPN_ITS ---
OB - PN: Subj Subjective Patient comments: no complaints and pain well controlled [place] status: doing well Exam Constitutional Vital Signs, click to edit/add: Last Vital Signs Temp 98.0 F 06/22/24 00:00 Pulse 88 06/20/24 23:27 Resp 16 06/22/24 00:00 BP 123/75 06/22/24 00:01 Pulse Ox 99 06/20/24 18:09 O2 Del Method Room Air 06/22/24 00:00 Documenting provider has reviewed patient's vital signs: yes Common normals: no apparent distress Respiratory Common normals: normal respiratory effort and clear to auscultation bilaterally Cardio Common normals: regular rate and regular rhythm GI Common normals: Normal to inspection, nondistended, normoactive bowel sounds present Extremity Common normals: no clubbing, cyanosis or edema Urinary Catheter Management Urinary Catheter Management Urethral: Cath placed during this visit: no OB - PN: A/P Assessment and Plan (1) Term : Plan - day: 3 Plan: routine postop care, discharge home and follow up 6 weeks Time Spent with Patient Time: Total time spent is greater than 50% in coordination of care (as documented) at patient's floor/unit and/or counseling patient: Total time spent with greater than 50% in coordination of care (as documented) at patient's floor/unit and/or counseling patient: less than 15 minutes
[2024-06-22] MEDS: DOCUSATE SODIUM 100 MG CAPSULE PO (08:04)
[2024-06-22] MEDS: ENOXAPARIN SODIUM 40 MG/0.4 ML SYRINGE SUBQ (08:04)
[2024-06-22] MEDS: OXYCODONE HCL/ACETAMINOPHEN 5MG/325MG 1 TAB PO (08:04)
[2024-06-22 09:20] VITALS: BP 124/82; PULSE 89; TEMP 36.9; O2SAT 98
== END 2024-06-22 13:35 | disposition home or self-care (01) | DRG 787 ==
PROVIDERS: Obstetrics & Gynecology; Admitting Provider Obstetrics & Gynecology; PCP Family Medicine; Visit Provider Obstetrics & Gynecology
PROC: 10D00Z1 Extraction of Products of Conception, Low, Open Approach (ICD-10-PCS; CPT 59514; principal; 2024-06-19 16:00)
DX: O99.214 Obesity complicating childbirth (principal); O98.32 Other infections with a predominantly sexual mode of transmission complicating childbirth; A60.09 Herpesviral infection of other urogenital tract; Z37.0 Single live birth; Z3A.40 40 weeks gestation of pregnancy; O61.0 Failed medical induction of labor; O32.8XX0 Maternal care for other malpresentation of fetus, not applicable or unspecified; O99.62 Diseases of the digestive system complicating childbirth; K21.9 Gastro-esophageal reflux disease without esophagitis; O99.284 Endocrine, nutritional and metabolic diseases complicating childbirth; E28.2 Polycystic ovarian syndrome; Z79.1 Long term (current) use of non-steroidal anti-inflammatories (NSAID); Z79.82 Long term (current) use of aspirin; Z88.1 Allergy status to other antibiotic agents; Z79.899 Other long term (current) drug therapy
CPT/HCPCS: 36415; 59050; 80307; 85025; 85027; 86850; 86900; 86901; 94667; J0736; J1650; J1885; J2274; J2371; J2405; J2590; J2765; J3490

== ENCOUNTER 2024-06-24 07:53 | Outpatient (OUT) | payer OTHER, SELFPAY ==
--- OUTSIDE RECORDS SUMMARY | 2024-06-24 08:16 | XMS_ITS | CCD ---
Author Organization [facility] Care Team Providers Care Sport Shoe Spike Assembler Name Role Phone MICHAEL HELMS Primary Care Physician Michael Helms Primary Care Provider SCOOTER, DR MICHAEL Camejo Admitting Unavailable NADERER, DR MICHAEL Camejo Attending Unavailable NADERER, DR MICHAEL Camejo Consulting Unavailable NADERER, DR MICHAEL Camejo Primary Care Unavailable EDWARD, SUMMER Attending Unavailable EDWARD, SUMMER Admitting Unavailable GRECHNY ., PEDRO BAINS Consulting Unavailabl e NADJERRY, DR MICHAEL Camejo Primary Care Unavailable NEWGLENN SINCLAIR Consulting Unavailable MORRO ., DR ALONSO Attending Unavailable MORRO ., DR ALONSO Admitting Unavailable MORRO ., DR ALONSO Consulting Unavailable NADERER, DR [...] SAM Attending Unavailable JULIO PULIDO Attending Unavailable COBY CIFUENTES Attending Unavailable MORRO, SAM Attending Unavailable Michael Helms MD Primary Care Provider CHRISTINA HOOKERY Referring Unavailable MORRO, SAM Attending Unavailable MORRO, SAM Attending Unavailable MORRO, SAM Referring Unavailable MORRO, SAM Attending Unavailable MORRO, SAM Attending Unavailable MORRO, SAM Attending Unavailable COBY CIFUENTES Attending Unavailable SAM HOOKER Attending Unavailable SAM HOOKER Attending Unavailable SAM HOOKER Attending Unavailable MORRO, SAM Attending Unavailable SAM HOOKER Attending Unavailable Allergies Allergy Classification Reported [...] day(s), # 28 tab(s), Refills(s) 0, Pharmacy: [facility]/pharmacy #[id number], 168, cm, 08/08/21 14:35:00 EDT, Height/Length [...] (1 source) Serotonin Reuptake Inhibitor Start: 05-25-19 23 take 1 tablet by mouth once daily citalopram (CELEXA) 20 mg tablet Take 20 mg by mouth once daily. 0 05/25/2022 Active Comment on above: Take 20 mg by mouth once daily. medroxyPROGESTERone acetate 10 mg oral tablet (2 sources) Progestin Start: 10-12-19 19 medroxyPROGESTERone (PROVERA) 10 mg tablet Take 10 [...] current use of drug therapy; Translations: [Other shelter (current) drug therapy] Episodic Other aftercare (1 source) Other shelter (current) drug therapy; Translations: [[facility] CURRENT DRUG THERAPY] Onset: 06-18-2022 Episodic Other complications of (4 sources) Excessive growth affecting management of mother; [...] 07-11-2023 Chronic Other and delivery including normal (18 sources) Second trimester ; Translations: [Encounter for [...] [34 weeks gestation of ] 05-11-2024 Episodic Residual codes; unclassified (2 sources) Gestation period, 36 weeks; Translations: [36 weeks gestation of ] 05-26-2024 Episodic Residual codes; unclassified (2 sources) Gestation period, 37 weeks; Translations: [37 weeks gestation of ] 06-03-2024 Episodic Residual codes; unclassified (2 sources) Gestation period, 38 weeks; Translations: [38 weeks gestation of ] 06-10-2024 Episodic Residual codes; unclassified (2 sources) Gestation period, 39 weeks; Translations: [39 weeks gestation of ] 06-17-2024 Episodic Unclassified (1 source) OPENED IN ERROR Unclassified (20 sources) OB Reminders Onset: 02-16-2024 02-16-2024 Past or Other Problems Problem Classification Problem Date Documented Date Episodic/Chronic Other connective tissue disease (4 sources) Pain in right finger(s); Translations: [PAIN IN RIGHT FINGERS] Onset: 08-23-2021 Episodic Other screening for suspected conditions (not mental disorders or infectious disease) (20 sources) Encounter for screening for malignant neoplasm of cervix; Translations: [Patient encounter status] Onset: 01-31-2022 Episodic Other skin disorders (1 [...] Range Facility Urinalysis macro (dipstick) panel (U)on 06-17-2024 Bilirubin, UA Negative Negative - 4(70) +++ mg/dL [facility] Blood, UA Positive Negative - 50 Tres/mcL [facility] Comment on above: trace-intact Clarity, UA Clear [facility] Color, UA Yellow [facility] Glucose, UA Negative Negative - 2000(110) ++++ mg/dL [facility] Interpretation and review of laboratory results Abnormal [facility] Ketones, UA Negative Negative - 160(16) ++++ mg/dL [facility] Leukocytes, UA Trace Negative - 500+++ Abigail/mcL [facility] Nitrite, UA Negative Negative - Positive [facility] pH, UA 5.5 5 - 9 [facility] Protein, UA Positive Negative - 1999(20) ++++ mg/dL [facility] Comment on above: 30 Spec Grav, UA 1.03 1 - 1.03 [facility] Urobilinogen, UA 0.2 0.2 - 12 mg/dL [facility] US OB GROWTHon 06-10-2024 [place] [address] Ultrasound Report Signed Patient: LIZ BERMEO MR#: [id number] : 1995 Acct:[id number] Age/Sex: 29 / F ADM Date: 06/10/24 Loc: US Attending Dr: Sam Hooker D.O. Ordering Physician: Sam Hooker D.O. Date of Service: 06/10/24 Procedure(s): US OB growth Accession Number(s): [id number] cc: Sam Hooker D.O.; Michael Helms M.D. [place] [address] Patient Name: LIZ BERMEO MRN: [id number] date: 1995 Sex: F Assigned Patient Location: US Current Patient Location: Accession/Order Number: [id number] Exam Date: 06/10/2024 22:24 Report Date: 06/10/2024 22:27 At the request of: SAM HOOKER DO Procedure: US OB growth Growth ultrasound. Reason for exam: Excessive growth. COMPARISON: Ultrasound 01/29/2024. TECHNIQUE: Transabdominal imaging of the gravid uterus was obtained. FINDINGS: Single live intrauterine measuring 38 weeks 4 days by anatomic measurements. Head circumference is greater than 97th percentile. Abdominal circumference is at 78th percentile. Estimated weight is 3717 g. MARIA ANTONIA is normal at 23.02 cm. heart rate is 1 57 bpm. position is cephalic at time of scanning. US/US OB growth IMPRESSION: Single live intrauterine measuring 38 weeks 4 days by anatomic measurements. Impression dictated by: Mann Law Jr., D.O.06/10/2024 10:27 PM Dictation Location: [place] [address] Electronically authenticated by: [id number] Y Date: 06/10/2024 22:27 Dictated By: Mann Law M.D. Signed By: 06/10/242229 DD/ 26 TD/TT: Scrap Baler: [facility] Radiology, Radiologist, - 06/10/2024 [place] [address] Ultrasound Report Signed Patient: LIZ BERMEO MR#: [id number] : 1995 Acct:[id number] Age/Sex: 29 / F ADM Date: 06/10/24 Loc: US Attending Dr: Sam Hooker D.O. Ordering Physician: Sam Hooker D.O. Date of Service: 06/10/24 Procedure(s): US OB growth Accession Number(s): [id number] cc: Sam Hooker D.O.; Michael Helms M.D. [place] [address] Patient Name: LIZ BERMEO MRN: [facility]:[id number] date: 1995 Sex: F Assigned Patient Location: Current Patient Location: Accession/Order Number: [id number] Exam Date: 06/10/2024 22:24 Report Date: 06/10/2024 22:27 At the request of: SAM HOOKER DO Procedure: US OB growth Growth ultrasound. Reason for exam: Excessive growth. COMPARISON: Ultrasound 01/29/2024. TECHNIQUE: Transabdominal imaging of the gravid uterus was obtained. FINDINGS: Single live intrauterine measuring 38 weeks 4 days by anatomic measurements. Head circumference is greater than 97th percentile. Abdominal circumference is at 78th percentile. Estimated weight is 3717 g. MARIA ANTONIA is normal at 23.02 cm. heart rate is 1 57 bpm. position is cephalic at time of scanning. US/US OB growth IMPRESSION: Single live intrauterine measuring 38 weeks 4 days by anatomic measurements. Impression dictated by: Aman Gallegos Jr.OHany06/10/2024 10:27 PM Dictation Location: [place] [address] Electronically authenticated by: [id number] Y Date: 06/10/2024 22:27 Dictated By: Mann Law M.D. Signed By: 06/10/242229 DD/ 26 TD/TT: Scrap Baler: [facility] Radiology Study observation (narrative) [facility] US OB GROWTHOrdered By: Teri ologist Radiology on 06-10-2024 [facility] Work Phone: Urinalysis macro (dipstick) panel (U)on 06-10-2024 Bilirubin, UA Negative Negative - 4(70) +++ mg/dL [facility] Blood, UA Positive Negative - 50 Tres/mcL [facility] Comment on above: trace-intact Clarity, UA Clear [facility] Color, UA Yellow [facility] Glucose, UA Negative Negative - 2000(110) ++++ mg/dL [facility] Interpretation and review of laboratory results Abnormal [facility] Ketones, UA Negative Negative - 160(16) ++++ mg/dL [facility] Leukocytes, UA Trace Negative - 500+++ Abigail/mcL [facility] Nitrite, UA Negative Negative - Positive [facility] pH, UA 5.5 5 - 9 [facility] Protein, UA Negative Negative - 2000(20) ++++ mg/dL [facility] Spec Grav, UA 1.03 1 - 1.03 [facility] Urobilinogen, UA 0.2 0.2 - 12 mg/dL [facility] US OB BPP W NON-STRESS on 06-03-2024 [place] [address] Ultrasound Report Signed Patient: LIZ BERMEO MR#: [id number] : 1995 Acct:[id number] Age/Sex: 29 / F ADM Date: 06/03/24 Loc: [facility] 254-[address]: Sam Hooker D.O. Ordering Physician: Sam Hooker D.O. Date of Service: 06/03/24 Procedure(s): US OB BPP w non-stress Accession Number(s): [id number] cc: Sam Hooker D.O.; Michael Helms M.D. The [place] [id number] Patient Name: LIZ BERMEO MRN: [facility]:[id number] date: 1995 Sex: F Assigned Patient Location: [facility] Current Patient Location: [facility] Accession/Order Number: [id number] Exam Date: 06/03/2024 19:12 Report Date: 06/03/2024 19:15 At the request of: SAM HOOKER DO Procedure: US OB BPP w non-stress Exam: Biophysical profile. Reason for exam: Elevated blood pressure. COMPARISON: None. TECHNIQUE: Transabdominal imaging of the gravid uterus was obtained. FINDINGS: The automobile dealer reports the BPP 8 out of 8. Polyhydramnios is present with MARIA ANTONIA measuring 27 cm. heart rate measuring 145 bpm. US/US OB BPP w non-stress IMPRESSION: BPP 8 out of 8. Polyhydramnios. Impression dictated by: Mann Law Jr., D.O.06/03/2024 7:15 PM Dictation Location: [place] [address] Electronically authenticated by: [id number] Y Date: 06/03/2024 19:15 Dictated By: Mann Law M.D. Signed By: 06/03/241917 DD/ 14 TD/TT: Scrap Baler: [facility] Radiology, Radiologist, - 06/03/2024 [place] [address] Ultrasound Report Signed Patient: LIZ BERMEO MR#: [id number] : 1995 Acct:[id number] Age/Sex: 29 / F ADM Date: 06/03/24 Loc: [facility] 254-[address]: Sam Hooker D.O. Ordering Physician: Sam Hooker D.O. Date of Service: 06/03/24 Procedure(s): US OB BPP w non-stress Accession Number(s): [id number] cc: Sam Hooker D.O.; Michael Helms M.D. [place] [id number] Patient Name: LIZ BERMEO MRN: [id number] date: 1995 Sex: F Assigned Patient Location: [facility] Current Patient Location: [facility] Accession/Order Number: [id number] Exam Date: 06/03/2024 19:12 Report Date: 06/03/2024 19:15 At the request of: SAM HOOKER DO Procedure: US OB BPP w non-stress Exam: Biophysical profile. Reason for exam: Elevated blood pressure. COMPARISON: None. TECHNIQUE: Transabdominal imaging of the gravid uterus was obtained. FINDINGS: The automobile dealer reports the BPP 8 out of 8. Polyhydramnios is present with MARIA ANTONIA measuring 27 cm. heart rate measuring 145 bpm. US/US OB BPP w non-stress IMPRESSION: BPP 8 out of 8. Polyhydramnios. Impression dictated by: Mann Law Jr., D.O.06/03/2024 7:15 PM Dictation Location: [place] [address] Electronically authenticated by: [id number] Y Date: 06/03/2024 19:15 Dictated By: Mann Law M.D. Signed By: 06/03/241917 DD/ 14 TD/TT: Scrap Baler: [facility] Radiology Study observation (narrative) [facility] US OB BPP W NON-STRESS Ordered By: Radiologist Radiology on 06-03-2024 [facility] Work Phone: Urinalysis macro (dipstick) panel (U)on 06-03-2024 Bilirubin, UA Negative Negative - 4(70) +++ mg/dL [facility] Blood, UA Positive Negative - 50 Tres/mcL [facility] Comment on above: trace-lysed Clarity, UA Clear [facility] Color, UA Yellow [facility] Glucose, UA Negative Negative - 2000(110) ++++ mg/dL [facility] Interpretation and review of laboratory results Abnormal [facility] Ketones, UA Negative Negative - 160(16) ++++ mg/dL [facility] Leukocytes, UA Negative Negative - 500+++ Abigail/mcL [facility] Nitrite, UA Negative Negative - Positive [facility] pH, UA 5.5 5 - 9 [facility] Protein, UA Negative Negative - 2000(20) ++++ mg/dL [facility] Spec Grav, UA 1.02 1 - 1.03 [facility] Urobilinogen, UA 0.2 0.2 - 12 mg/dL [facility] ALL MISCELLANEOUS TESTon MISCELLANEOUS TEST COMMENT . [facility] Comment on above: Test Ordered: [id number] Strep Gp B Culture+Rflx Strep Gp B Culture+Rflx Negative CB Reference Range: Negative Centers for Disease Control and Prevention (CDC) and [place] [employer] Gynecologists (ACOG) guidelines for prevention of group B streptococcal (GBS) disease specify co-collection of a vaginal and rectal swab specimen to maximize sensitivity of GBS detection. Per the CDC and ACOG, swabbing both the lower vagina and rectum substantially increases the yield of detection compared with sampling the vagina alone. Penicillin G, ampicillin, or cefazolin are indicated for intrapartum prophylaxis of GBS colonization. Reflex susceptibility testing should be performed prior to use of clindamycin only on GBS isolates from penicillin- allergic women who are considered a high risk for anaphylaxis. Treatment with vancomycin without additional testing is warranted if resistance to clindamycin is noted. Performed at: [address] [id number] Manager Of Enterprise: Smooth Canela PhD, Phone: [phone] GROUP B STREP [id number] CULTURE, GROUP B STREP WITH SUSCEPTIBILITY [facility] US OB FOLLOW UP TRANSABDOMIN AL APPROACHon 05-26-2024 US OB FOLLOW UP TRANSABDOMINAL APPROACH EXAM: US OB FOLLOW UP TRANSABDOMINAL APPROACH HISTORY: Large for gestational age. COMPARISON: Ob ultrasound 04/29/2024 - Report only. TECHNIQUE: Two-dimensional transabdominal grayscale ultrasound imaging of the pelvis was performed. FINDINGS: Gestation: Single Presentation: Cephalic Cardiac Activity: 156 beats per minute Placental Location: Anterior with no sonographic abnormalities identified. Cervical canal: Not visualized Amniotic Fluid Index: 27.1 cm MEASUREMENTS: BPD: 9.4 cm EGA: 38 weeks 3 days HC: 35.2 cm EGA: 41 weeks 1 days AC: 33.5 cm EGA: 37 weeks 2 days FL: 7.3 cm EGA: 37 weeks 1 days HC/AC Ratio: 1.05 The gestational age by today's ultrasound is 38 weeks 4 days (+/- eight days gestation). Estimated Weight: 3321 grams, +/- 498 grams ( 7 lb 5 oz). Weight Percentile for gestational age: 85 % IMPRESSION: 1. Single, live intrauterine gestation 36 weeks, 4 days by LMP. Today's ultrasound measurements correlate with a gestational age of 38 weeks 4 days. Estimated weight is 3321 grams, +/- 498 grams ( 7 lb 5 oz) which correlates to 85 %. JUDE is 06/05/2024. 2. Polyhydramnios. Electronically Signed:Electronically signed by VENESSA HURLEY II, MD, PHD at 27-May-2024 08:04:17 AM [facility] Normal Not Available Comment on above: Order Comment: US OB SCAN FOR GROWTH Estimated Date of Delivery: 06/19/24 Gestational Age as of 05/11/2024: 34w3d Urinalysis macro (dipstick) panel (U)on 05-26-2024 Bilirubin, UA Negative Negative - 4(70) +++ mg/dL [facility] Blood, UA Positive Negative - 50 Tres/mcL [facility] Comment on above: trace - intact Clarity, UA Clear [facility] Color, UA Yellow [facility] Glucose, UA Negative Negative - 2000(110) ++++ mg/dL [facility] Interpretation and review of laboratory results Abnormal [facility] Ketones, UA Negative Negative - 160(16) ++++ mg/dL [facility] Leukocytes, UA Negative Negative - 500+++ Abigail/mcL [facility] Nitrite, UA Negative Negative - Positive [facility] pH, UA 5.5 5 - 9 [facility] Protein, UA Positive Negative - 2000(20) ++++ mg/dL [facility] Comment on above: 30mg/dL Spec Grav, UA 1.03 1 - 1.03 [facility] Urobilinogen, UA 0.2 0.2 - 12 mg/dL [facility] US OB FOLLOW UP TRANSABDOMIN AL APPROACHon [...] 2439 gm / 5 lbs, 6 oz (5148-7765 gm) [place] Normal: 2099 gm (4575-8313 gm) [place] Wt%: 89% for 32.7 wks [...] UA Negative Negative - 4(70) +++ mg/dL [facility] Blood, UA Negative Negative - 50 Tres/mcL [facility] Clarity, UA Clear [facility] Color, UA Yellow [facility] Glucose, UA Negative Negative - 1999(110) ++++ mg/dL [facility] Interpretation and review of laboratory results Normal [facility] Ketones, UA Negative Negative - 160(16) ++++ mg/dL [facility] Leukocytes, UA Negative Negative - 500+++ Abigail/mcL [facility] Nitrite, UA Negative Negative - Positive [facility] pH, UA 6 5 - 9 [facility] Protein, UA Negative Negative - 2000(20) ++++ mg/dL [facility] Spec Grav, UA 1.03 1 - 1.03 [facility] Urobilinogen, UA 0.2 0.2 - 12 mg/dL [facility] Urinalysis macro (dipstick) panel (U)on 04-15-2024 Bilirubin, UA Negative Negative - 4(70) +++ mg/dL [facility] Blood, UA Positive Negative - 50 Tres/mcL [facility] Comment on above: trace-lysed Clarity, UA Clear [facility] Color, UA Yellow [facility] Glucose, UA Negative Negative - 1999(110) ++++ mg/dL [facility] Interpretation and review of laboratory results Abnormal [facility] Ketones, UA Negative Negative - 160(16) ++++ mg/dL [facility] Leukocytes, UA Negative Negative - 500+++ Abigail/mcL [facility] Nitrite, UA Negative Negative - Positive [facility] pH, UA 5 5 - 9 [facility] Protein, UA Trace Negative - 1999(20) ++++ mg/dL [facility] Spec Grav, UA 1.03 1 - 1.03 [facility] Urobilinogen, UA 0.2 0.2 - 12 mg/dL [facility] Urinalysis macro (dipstick) panel (U)on 03-18-2024 Bilirubin, UA Negative Negative - 4(70) +++ mg/dL [facility] Blood, UA Negative Negative - 50 Tres/mcL [facility] Clarity, UA Clear [facility] Color, UA Yellow [facility] Glucose, UA Negative Negative - 1999(110) ++++ mg/dL [facility] Interpretation and review of laboratory results Normal [facility] Ketones, UA Negative Negative - 160(16) ++++ mg/dL [facility] Leukocytes, UA Negative Negative - 500+++ Abigail/mcL [facility] Nitrite, UA Negative Negative - Positive [facility] pH, UA 6 5 - 9 [facility] Protein, UA Negative Negative - 1999(20) ++++ mg/dL [facility] Spec Grav, UA 1.015 1 - 1.03 [facility] Urobilinogen, UA 0.2 0.2 - 12 mg/dL [facility] GLUCOSE TOLERANCE 3 HOURon 1 05-18-2023 GLUCOSE TOLERANCE 3 HOUR mg/dL [facility] Comment on above: GLU FAST 80 (<95) Co l: 03/17/24 0736 GLU 1HR 128 (<180) Col: 03/17/24 0845 GLU 2HR 110 (<155) Col: 03/17/24 0940 GLU 3HR 64 (<140) Col: 03/17/24 1039 [facility] ALL CBC WITH AUTO DIFFon BASOPHILS ABSOLUTE AUTO 0 [facility] Basophils/100 WBC (Bld) 0.2 % 0.2 - 2.0 % [facility] Eosinophils/100 WBC (Bld) 0.7 % Low 0.9 - 7.0 % [facility] Erythrocyte distribution width (RBC) [Ratio] 13.6 % 11.0 - 15.0 % [facility] Hematocrit (Bld) [Volume fraction] 34.7 % Low 36.0 - 48.0 % [facility] Hemoglobin (Bld) [Mass/Vol] 11.4 g/dL Low 12.0 - 16.0 g/dL [facility] IMMATURE GRANULOCYTES ABS AUTO 0.07 High [facility] Immature granulocytes/100 WBC (Bld) 0.6 % High 0.0 - 0.5 % [facility] Interpretation and review of laboratory results Abnormal [facility] LYMPHOCYTES ABSOLUTE AUTO 2.1 [facility] Lymphocytes/100 WBC (Bld) 17.3 % Low 20.5 - 60.0 % [facility] MCH (RBC) [Entitic mass] 30 pg 26.7 - 34.0 pg [facility] MCHC (RBC) [Mass/Vol] 32.9 g/dL 29.9 - 35.2 g/dL [facility] MCV (RBC) [Entitic vol] 91.3 fL 81.0 - 99.0 fL [facility] MONOCYTES ABSOLUTE AUTO 0.6 [facility] Monocytes/100 WBC (Bld) 5 % 1.7 - 12.0 % [facility] NEUTROPHILS ABSOLUTE AUTO 9.2 High [facility] Neutrophils/100 WBC (Bld) 76.2 % High 43.0 - 75.0 % [facility] Platelet mean volume (Bld) [Entitic vol] 11.3 fL 9.5 - 13.5 fL [facility]H EO # 0.1 [facility] PLT 240 [facility] RBC 3.8 Low [facility] WBC 12.1 High [facility] Urinalysis macro (dipstick) panel (U)on 02-19-2024 Bilirubin, UA Negative Negative - 4(70) +++ mg/dL [facility] Blood, UA Negative Negative - 50 Tres/mcL [facility] Clarity, UA Clear [facility] Color, UA Yellow [facility] Glucose, UA Negative Negative - 1999(110) ++++ mg/dL [facility] Interpretation and review of laboratory results Normal [facility] Ketones, UA Negative Negative - 160(16) ++++ mg/dL [facility] Leukocytes, UA Negative Negative - 500+++ Abigail/mcL [facility] Nitrite, UA Negative Negative - Positive [facility] pH, UA 5.5 5 - 9 [facility] Protein, UA Negative Negative - 1999(20) ++++ mg/dL [facility] Spec Grav, UA 1.01 1 - 1.03 [facility] Urobilinogen, UA 0.2 0.2 - 12 mg/dL [facility] Urinalysis macro (dipstick) panel (U)on 01-22-2024 Bilirubin, UA Negative Negative - 4(70) +++ mg/dL [facility] Blood, UA Negative Negative - 50 Tres/mcL [facility] Clarity, UA Clear [facility] Color, UA Yellow [facility] Glucose, UA Negative Negative - 1999(110) ++++ mg/dL [facility] Interpretation and review of laboratory results Abnormal [facility] Ketones, UA Positive Negative - 160(16) ++++ mg/dL [facility] Comment on above: 15 Leukocytes, UA Negative Negative - 500+++ Abigail/mcL [facility] Nitrite, UA Negative Negative - Positive [facility] pH, UA 6 5 - 9 [facility] Protein, UA Negative Negative - 1999(20) ++++ mg/dL [facility] Spec Grav, UA 1.03 1 - 1.03 [facility] Urobilinogen, UA 0.2 0.2 - 12 mg/dL [facility] Urinalysis macro (dipstick) panel (U)on 12-23-2023 Bilirubin, UA Negative Negative - 4(70) +++ mg/dL [facility] Blood, UA Negative Negative - 50 Tres/mcL [facility] Clarity, UA Clear [facility] Color, UA Yellow [facility] Glucose, UA Negative Negative - 1999(110) ++++ mg/dL [facility] Interpretation and review of laboratory results Normal [facility] Ketones, UA Negative Negative - 160(16) ++++ mg/dL [facility] Leukocytes, UA Negative Negative - 500+++ Abigail/mcL [facility] Nitrite, UA Negative Negative - Positive [facility] pH, UA 6.0 5 - 9 [facility] Protein, UA Negative Negative - 2000(20) ++++ mg/dL [facility] Spec Grav, UA 1.020 1 - 1.03 [facility] Urobilinogen, UA 0.2 0.2 - 12 mg/dL [facility] ALL CBC WITH AUTO DIFFon BASOPHILS ABSOLUTE AUTO 0.1 [facility] Basophils/100 WBC (Bld) 0.4 % 0.2 - 2.0 % [facility] Eosinophils/100 WBC (Bld) 0.5 % Low 0.9 - 7.0 % [facility] Erythrocyte distribution width (RBC) [Ratio] 13.4 % 11.0 - 15.0 % [facility] Hematocrit (Bld) [Volume fraction] 37.6 % 36.0 - 48.0 % [facility] Hemoglobin (Bld) [Mass/Vol] 12.6 g/dL 12.0 - 16.0 g/dL [facility] IMMATURE GRANULOCYTES ABS AUTO 0.05 High [facility] Immature granulocytes/100 WBC (Bld) 0.4 % 0.0 - 0.5 % [facility] Interpretation and review of laboratory results Abnormal [facility] LYMPHOCYTES ABSOLUTE AUTO 2.5 [facility] Lymphocytes/100 WBC (Bld) 19.4 % Low 20.5 - 60.0 % [facility] MCH (RBC) [Entitic mass] 29.3 pg 26.7 - 34.0 pg [facility] MCHC (RBC) [Mass/Vol] 33.5 g/dL 29.9 - 35.2 g/dL [facility] MCV (RBC) [Entitic vol] 87.4 fL 81.0 - 99.0 fL [facility] MONOCYTES ABSOLUTE AUTO 0.7 [facility] Monocytes/100 WBC (Bld) 5.6 % 1.7 - 12.0 % [facility] NEUTROPHILS ABSOLUTE AUTO 9.6 High [facility] Neutrophils/100 WBC (Bld) 73.7 % 43.0 - 75.0 % [facility] Platelet mean volume (Bld) [Entitic vol] 11.5 fL 9.5 - 13.5 fL [facility] EO # 0.1 [facility] PLT 254 [facility] RBC 4.30 [facility] TB WBC 13.0 High [facility] CBC AUTO DIFFon 08-07-2022 BASO # 0.1 103/ul Normal 0.0-0.1 [facility] Comment on above: Performed By: #### C BC ####[facility] [address] [place] [address]Dr. Rasta Gatica Basophils/100 WBC (Bld) 0.4 % Normal 0.2-2.0 [facility] Comment on above: Performed By: #### C BC ####[facility] [address] [place], [place] [address]Dr. Rasta Gatica EO # 0.2 103/ul Normal 0.0-0.7 [facility] Comment on above: Performed By: #### C BC ####[facility] [address] [place], [place] [address]Dr. Rasta Gatica Eosinophils/100 WBC (Bld) 1.3 % Normal 0.9-7.0 [facility] Comment on above: Performed By: #### C BC ####[facility] Uk[address] [place], [place] [address]Dr. Rasta Gatica Erythrocyte distribution width (RBC) [Ratio] 12.7 % Normal 11.0-15.0 [facility] Comment on above: Performed By: #### C BC ####[facility] [address] [place], [place] [address]Dr. Rasta Gatica Hematocrit (Bld) [Volume fraction] 40.3 % Normal 36.0-48.0 [facility] Comment on above: Performed By: #### C BC ####[facility] U[address] [place], [place] [address]Dr. Rasta Gatica Hemoglobin (Bld) [Mass/Vol] 13.1 g/dL Normal 12.0-16.0 [facility] Comment on above: Performed By: #### C BC ####[facility] [address] [place], [place] [address]Dr. Rasta Gatica IG # 0.03 10e3/ul Normal 0.00-0.03 [facility] Comment on above: Performed By: #### C BC ####[facility] [address] [place] [address]DrHany Rasta Gatica IG % 0.3 % Normal 0.0-0.5 [facility] Comment on above: Performed By: #### C BC ####[facility] [address] [place] [address]DrHany Rasta En LYMPH # 2.9 103/ul Normal 1.2-3.8 [facility] Comment on above: Performed By: #### C BC ####[facility] Xr[address] [place], [place] [address]DrHany Rasta En Lymphocytes/100 WBC (Bld) 25.5 % Normal 20.5-60.0 [facility] Comment on above: Performed By: #### C BC ####[facility] F[address] [place], [place] [address]DrHany Rasta En MANUAL DIFF REQ NO Normal [facility] Comment on above: Performed By: #### C BC ####[facility] [address] [place] [address]DrHany Rasta En MCH (RBC) [Entitic mass] 29.1 pg Normal 26.7-34.0 [facility] Comment on above: Performed By: #### C BC ####[facility] [address] [place], [place] [address]DrHany Rasta Gatica MCHC (RBC) [Mass/Vol] 32.5 g/dL Normal 29.9-35.2 [facility] Comment on above: Performed By: #### C BC ####[facility] [address] [place], [place] [id number] Rasta En MCV (RBC) [Entitic vol] 89.6 fL Normal 81.0-99.0 [facility] Comment on above: Performed By: #### C BC ####[facility] [address] [place], [place] [address]DrHany Gatica MONO # 0.8 103/ul Normal 0.3-0.8 [facility] Comment on above: Performed By: #### C BC ####[facility] [address] [place] [id number]. Rasta Gatica Monocytes/100 WBC (Bld) 7.2 % Normal 1.7-12.0 [facility] Comment on above: Performed By: #### C BC ####[facility] [address] [place] [id number]. Rasta Gatica NEUT # 7.3 103/ul Critically high 1.4-6.5 [facility] Comment on above: Performed By: #### C BC ####[facility] [address] [place] [address]Dr. Rasta Gatica Neutrophils/100 WBC (Bld) 65.3 % Normal 43.0-75.0 [facility] Comment on above: Performed By: #### C BC ####[facility] [address] [place] [address]Dr. Rasta Gatica Platelet mean volume (Bld) [Entitic vol] 10.7 fL Normal 9.5-13.5 [facility] Comment on above: Performed By: #### C BC ####[facility] [address] [place] [address]Dr. Rasta Gatica PLT 279 103/ul Normal 150-450 [facility] Comment on above: Performed By: #### C BC ####[facility] [address] [place] [id number]. Rasta Gatica RBC 4.50 106/ul Normal 4.20-5.40 [facility] Comment on above: Performed By: #### C BC ####[facility] [address] [place] [id number]. Rasta Gatica WBC 11.2 103/ul Critically high 4.0-11.0 [facility] Comment on above: Performed By: #### C BC ####[facility] [address] [place] [id number]. Rasta Gatica GLYCOHEMOGLOBIN A1Con 2022 ADA RECOMMENDATION SEE BELOW Normal [facility] Comment on above: Result Comment: ADA RECOMMENDED LIMIT 4.0 - 6.0 ADA THERAPEUTIC TARGET < 7.0 ACTION SUGGESTED > 7.0 Performed By: #### A 1C #### [facility] [address] [address] [address] Rasta Gatica Glucose [Mass/Vol] 103 mg/dL Normal [facility] Comment on above: Performed By: #### A 1C #### [facility] [address] [address] [address] Rasta Gatica HbA1c (Bld) [Mass fraction] 5.2 % Normal 4.5-6.2 [facility] Comment on above: Performed By: #### A 1C #### [facility] [address] [address] [address] Rasta Gatica LIPID PROFILEon 08-07-2022 CHOL-HDL RATIO NORM SEE BELOW Normal [facility] Comment on above: Result Comment: 3.3 - 4.4 LOW RISK 4.4 - 7.1 AVERAGE RISK 7.1 - 11.0 MODERATE RISK >11.0 HIGH RISK Performed By: #### L IPID, BMP, TSH, LIVER #### [facility] [address] [address] [address] Rasta Gatica Cholesterol [Mass/Vol] 234 mg/dL Critically high <=200 [facility] Comment on above: Performed By: #### L IPID, BMP, TSH, LIVER #### [facility] [address] [address] [address] Rasta Gatica Cholesterol in HDL [Mass/Vol] 67 mg/dL Critically high 40-60 [facility] Comment on above: Performed By: #### L IPID, BMP, TSH, LIVER #### [facility] [address] [address] [address] Rasta Gatica Cholesterol in LDL [Mass/Vol] 151.8 mg/dL Normal [facility] Comment on above: Performed By: #### L IPID, BMP, TSH, LIVER #### [facility] [address] [address] [address] Rasta Gatica Cholesterol.total/C holesterol in HDL [Mass ratio] 3.5 {ratio} Normal [facility] Comment on above: Performed By: #### L IPID, BMP, TSH, LIVER #### [facility] [address] [address] [address] Rasta Gatica HDL NORMAL > or = 60 mg/dl - LO W CARDIOVASCULAR RISK <40 mg/dl - HIGH CARDIOVASCULAR RISK Normal [facility] Comment on above: Performed By: #### L IPID, BMP, TSH, LIVER #### [facility] [address] [address] [address] Rasta Gatica LDL CALC NORMAL SEE BELOW Normal [facility] Comment on above: Result Comment: <100 mg/dl OPTIMAL 100 - 129 mg/dl NEAR OR ABOVE OPTIMAL 130 - 159 mg/dl BORDERLINE HIGH 160 - 189 mg/dl HIGH >190 mg/dl VERY HIGH Performed By: #### L IPID, BMP, TSH, LIVER #### [facility] [address] [address] [address] Rasta Gatica Triglyceride [Mass/Vol] 76 mg/dL Normal <=150 [facility] Comment on above: Performed By: #### L IPID, BMP, TSH, LIVER #### [facility] [address] [address] [address] Rasta Gatica VLDL CALC 15.2 mg/dL Normal [facility] Comment on above: Performed By: #### L IPID, BMP, TSH, LIVER #### [facility] [address] [address] [address] Rsata Gatica LIVER PROFILEon 08-07-2022 Albumin [Mass/Vol] 3.8 g/dL Normal 3.4-5.0 [facility] Comment on above: Performed By: #### L IPID, BMP, TSH, LIVER #### [facility] [address] [address] [address] Rasta Gatica Albumin/Globulin [Mass ratio] 1.0 {ratio} Normal [facility] Comment on above: Performed By: #### L IPID, BMP, TSH, LIVER #### [facility] [address] [address] [address] Rasta Gatica ALP [Catalytic activity/Vol] 98 U/L Normal 46-116 [facility] Comment on above: Performed By: #### L IPID, BMP, TSH, LIVER #### [facility] [address] [place] [address] Dr. Rasta Gatica ALT [Catalytic activity/Vol] 24 U/L Normal 14-59 [facility] Comment on above: Performed By: #### L IPID, BMP, TSH, LIVER #### [facility] [address] [place] [address] Dr. Rasta Gatica AST [Catalytic activity/Vol] 19 U/L Normal 15-37 [facility] Comment on above: Performed By: #### L IPID, BMP, TSH, LIVER #### [facility] [address] [place] [address] Dr. Rasta Gatica BILI, CONJUGATED 0.1 mg/dL Normal 0.0-0.2 [facility] Comment on above: Performed By: #### L IPID, BMP, TSH, LIVER #### [facility] [address] [place] [address] Dr. Rasta Gatica Bilirubin [Mass/Vol] 0.4 mg/dL Normal 0.2-1.0 [facility] Comment on above: Performed By: #### L IPID, BMP, TSH, LIVER #### [facility] [address] [place] [address] Dr. Rasta Gatica Globulin (S) [Mass/Vol] 3.8 g/dL Normal [facility] Comment on above: Performed By: #### L IPID, BMP, TSH, LIVER #### [facility] [address] [place] [address] Dr. Rasta Gatica Protein [Mass/Vol] 7.6 g/dL Normal 6.4-8.2 [facility] Comment on above: Performed By: #### L IPID, BMP, TSH, LIVER #### [facility] [address] [place] [address] Dr. Rasta Gatica PROF CHEM 8 (BAS METB)on Anion gap [Moles/Vol] 9.6 mmol/L Normal [facility] Comment on above: Performed By: #### L IPID, BMP, TSH, LIVER #### [facility] [address] [address] [address] Rasta Gatica Calcium [Mass/Vol] 9.8 mg/dL Normal 8.5-10.1 [facility] Comment on above: Performed By: #### L IPID, BMP, TSH, LIVER #### [facility] [address] [place] [address] Dr. Rasta Gatica Chloride [Moles/Vol] 106 mmol/L Normal 98-107 [facility] Comment on above: Performed By: #### L IPID, BMP, TSH, LIVER #### [facility] [address] [place] [address] Dr. Rasta Gatica CO2 [Moles/Vol] 27.0 mmol/L Normal 21.0-32.0 [facility] Comment on above: Performed By: #### L IPID, BMP, TSH, LIVER #### [facility] [address] [place] [address] Dr. Rasta Gatica Creatinine [Mass/Vol] 0.66 mg/dL Normal 0.55-1.02 [facility] Comment on above: Performed By: #### L IPID, BMP, TSH, LIVER #### [facility] [address] [place] [address] Dr. Rasta Gatica EGFR-AF MALAGASY >60 Normal >=60 [facility] Comment on above: Performed By: #### L IPID, BMP, TSH, LIVER #### [facility] [address] [place] [address] Dr. Rasta Gatica EGFR-NON AF MALAGASY >60 Normal >=60 [facility] Comment on above: Performed By: #### L IPID, BMP, TSH, LIVER #### [facility] [address] [place] [address] Dr. Rasta Gatica Glucose [Mass/Vol] 88 mg/dL Normal 74-106 [facility] Comment on above: Performed By: #### L IPID, BMP, TSH, LIVER #### [facility] [address] [place] [address] Dr. Rasta Gatica Potassium [Moles/Vol] 4.6 mmol/L Normal 3.5-5.1 [facility] Comment on above: Performed By: #### L IPID, BMP, TSH, LIVER #### [facility] [address] [address] [address] Rasta Gatica Sodium [Moles/Vol] 138 mmol/L Normal 136-145 [facility] Comment on above: Performed By: #### L IPID, BMP, TSH, LIVER #### [facility] [address] [place] [address] Dr. Rasta Gatica Urea nitrogen [Mass/Vol] 10.0 mg/dL Normal 7.0-18.0 [facility] Comment on above: Performed By: #### L IPID, BMP, TSH, LIVER #### [facility] [address] [address] [address] Rasta Gatica Urea nitrogen/Creatinine [Mass ratio] 15.2 mg/mg Normal [facility] Comment on above: Performed By: #### L IPID, BMP, TSH, LIVER #### [facility] [address] [place] [address] Dr. Rasta Gatica TSHon 08-07-2022 TSH 1.521 uIU/mL Normal 0.358-3.740 [facility] Comment on above: Performed By: #### L IPID, BMP, TSH, LIVER #### [facility] [address] [place] [address] HEAD WO CONon [...] by: GLENN PACHECO Date: 2022-06-14 20:18 Normal [facility] PAP ACOG PANEL 2: 22 to 30on 02-08-2022 . . Normal [facility] Comment on above: Performed By: #### [id number] #### [facility] [address] [address] [address] Rasta Gatica Age Gdln ACOG Testing 21-29 [facility] Comment on above: Performed By: #### [id number] #### [facility] [address] [address] [address] Rasta Gatica DIAGNOSIS: Comment [facility] Comment on above: Result Comment: NEGA TIVE FOR INTRAEPITHELIAL LESION OR MALIGNANCY. Performed By: #### [id number] #### [facility] [address] [place] [address] Dr. Rasta Gatica Methodology: Comment [facility] Comment on above: Result Comment: This liquid based ThinPrep(R) pap test was screened with the use of an image guided system. Performed By: #### [id number] #### [facility] [address] [place] [address] Dr. Rasta Gatica Note: Comment [facility] Comment on above: Result Comment: The Pap smear is a screening test designed to aid in the detection of premalignant and malignant conditions of the uterine cervix. It is not a diagnostic procedure and should not be used as the sole means of detecting cervical cancer. Both false-positive and false-negative reports do occur. . Performed By: #### 4 [id number] #### [facility] [address] [address] [address] Rasta Gatica Performed by: Comment Normal [facility] Comment on above: Result Comment: Darline Terry, Maintenance Trainer (ASCP) Performed By: #### 4 [id number] #### [facility] [address] [place] [address] Dr. Rasta Gatica Reflex Criteria: Comment [facility] Comment on above: Result Comment: The HPV DNA reflex criteria were not met with this specimen result therefore, no HPV testing was performed. . Performed By: #### 4 [id number] #### [facility] [address] [address] [address] Rasta Gatica Specimen adequacy: Comment Normal [facility] Comment on above: Result Comment: Sati sfactory for evaluation. Endocervical and/or squamous metaplastic cells (endocervical component) are present. Performed By: #### [id number] #### [facility] [address] [address] [address] Rasta Gatica CBC AUTO DIFFon 02-02-2022 BASO # 0.0 103/ul Normal 0.0-0.1 [facility] Comment on above: Performed By: #### C BC ####[facility] [address] [place] [address]DrHany Gatica Basophils/100 WBC (Bld) 0.4 % Normal 0.2-2.0 [facility] Comment on above: Performed By: #### C BC ####[facility] [address] [place], [place] [address]DrHany Gatica EO # 0.1 103/ul Normal 0.0-0.7 [facility] Comment on above: Performed By: #### C BC ####[facility] [address] [place], [place] [address]DrHany Gatica Eosinophils/100 WBC (Bld) 1.3 % Normal 0.9-7.0 [facility] Comment on above: Performed By: #### C BC ####[facility] [address] [place], [place] [address]DrHany Gatica Erythrocyte distribution width (RBC) [Ratio] 13.2 % Normal 11.0-15.0 [facility] Comment on above: Performed By: #### C BC ####[facility] [address] [place], [place] [address]DrHany Gatica Hematocrit (Bld) [Volume fraction] 40.8 % Normal 36.0-48.0 [facility] Comment on above: Performed By: #### C BC ####[facility] [address] [place], [place] [address]DrHany Gatica Hemoglobin (Bld) [Mass/Vol] 13.2 g/dL Normal 12.0-16.0 [facility] Comment on above: Performed By: #### C BC ####[facility] [address] [place] [address]DrHany Gatica IG # 0.03 10e3/ul Normal 0.00-0.03 [facility] Comment on above: Performed By: #### C BC ####[facility] [address] [place] [address]DrHany Gatica IG % 0.3 % Normal 0.0-0.5 [facility] Comment on above: Performed By: #### C BC ####[facility] [address] [place], [place] [address]DrHany Gatica LYMPH # 2.8 103/ul Normal 1.2-3.8 [facility] Comment on above: Performed By: #### C BC ####[facility] [address] [place] [address]DrHany Gatica Lymphocytes/100 WBC (Bld) 29.1 % Normal 20.5-60.0 [facility] Comment on above: Performed By: #### C BC ####[facility] [address] [place] [address]DrHany Gatica MANUAL DIFF REQ NO Normal [facility] Comment on above: Performed By: #### C BC ####[facility] [address] [place] [address]DrHany Gatica MCH (RBC) [Entitic mass] 29.1 pg Normal 26.7-34.0 [facility] Comment on above: Performed By: #### C BC ####[facility] [address] [place] [id number] Gatica MCHC (RBC) [Mass/Vol] 32.4 g/dL Normal 29.9-35.2 [facility] Comment on above: Performed By: #### C BC ####[facility] [address] [place] [id number] Gatica MCV (RBC) [Entitic vol] 90.1 fL Normal 81.0-99.0 [facility] Comment on above: Performed By: #### C BC ####[facility] [address] [place] [address]Dr. Rasta Gatica MONO # 0.6 103/ul Normal 0.3-0.8 [facility] Comment on above: Performed By: #### C BC ####[facility] [address] [place] [address]Dr. Rasta Gatica Monocytes/100 WBC (Bld) 6.6 % Normal 1.7-12.0 [facility] Comment on above: Performed By: #### C BC ####[facility] [address] [place], [place] [address]Dr. Rasta Gatica NEUT # 6.0 103/ul Normal 1.4-6.5 [facility] Comment on above: Performed By: #### C BC ####[facility] [address] [place], [place] [address]Dr. Rasta Gatica Neutrophils/100 WBC (Bld) 62.3 % Normal 43.0-75.0 [facility] Comment on above: Performed By: #### C BC ####[facility] [address] [place], [place] [address]Dr. Rasta Gatica Platelet mean volume (Bld) [Entitic vol] 11.4 fL Normal 9.5-13.5 [facility] Comment on above: Performed By: #### C BC ####[facility] [address] [place], [place] [address]Dr. Rasta Gatica PLT 264 103/ul Normal 150-450 [facility] Comment on above: Performed By: #### C BC ####[facility] [address] [place], [place] [address]Dr. Rasta Gatica RBC 4.53 106/ul Normal 4.20-5.40 [facility] Comment on above: Performed By: #### C BC ####[facility] [address] [place], [place] [address]Dr. Rasta En WBC 9.7 103/ul Normal 4.0-11.0 [facility] Comment on above: Performed By: #### C BC ####[facility] [address] [place], [place] [address]HjDr. Rasta Gatica GLYCOHEMOGLOBIN A1Con 2021 ADA RECOMMENDATION SEE BELOW Normal [facility] Comment on above: Result Comment: ADA RECOMMENDED LIMIT 4.0 - 6.0 ADA THERAPEUTIC TARGET < 7.0 ACTION SUGGESTED > 7.0 Performed By: #### A 1C #### [facility] [address] [address] [address] Rasta Gatica Glucose [Mass/Vol] 120 mg/dL Normal [facility] Comment on above: Performed By: #### A 1C #### [facility] [address] [address] [address] Rasta Gatica HbA1c (Bld) [Mass fraction] 5.8 % Normal 4.5-6.2 [facility] Comment on above: Performed By: #### A 1C #### [facility] [address] [address] [address] Rasta Gatica LIPID PROFILEon 02-02-2022 CHOL-HDL RATIO NORM SEE BELOW Normal [facility] Comment on above: Result Comment: 3.3 - 4.4 LOW RISK 4.4 - 7.1 AVERAGE RISK 7.1 - 11.0 MODERATE RISK >11.0 HIGH RISK Performed By: #### L IVER, TSH, BMP, LIPID ####[facility] [address] [place], [place] [address]HyDr. Rasta Gatica Cholesterol [Mass/Vol] 210 mg/dL Critically high <=200 [facility] Comment on above: Performed By: #### L IVER, TSH, BMP, LIPID ####[facility] [address] [place], [place] [address]LnDr. Rasta Gatica Cholesterol in HDL [Mass/Vol] 61 mg/dL Critically high 40-60 [facility] Comment on above: Performed By: #### L IVER, TSH, BMP, LIPID ####[facility] [address] [place], [place] [address]UsDr. Rasta Gatica Cholesterol in LDL [Mass/Vol] 114.4 mg/dL Normal [facility] Comment on above: Performed By: #### L IVER, TSH, BMP, LIPID ####[facility] [address] [address]Dr. Rasta Gatica Cholesterol.total/C holesterol in HDL [Mass ratio] 3.4 {ratio} Normal [facility] Comment on above: Performed By: #### L IVER, TSH, BMP, LIPID ####[facility] [address] [address]Dr. Rasta Gatica HDL NORMAL > or = 60 mg/dl - LO W CARDIOVASCULAR RISK <40 mg/dl - HIGH CARDIOVASCULAR RISK Normal [facility] Comment on above: Performed By: #### L IVER, TSH, BMP, LIPID ####[facility] [address] [address]Dr. Rasta Gatica LDL CALC NORMAL SEE BELOW Normal [facility] Comment on above: Result Comment: <100 mg/dl OPTIMAL 100 - 129 mg/dl NEAR OR ABOVE OPTIMAL 130 - 159 mg/dl BORDERLINE HIGH 160 - 189 mg/dl HIGH >190 mg/dl VERY HIGH Performed By: #### L IVER, TSH, BMP, LIPID ####[facility] [address] [address]Dr. Rasta Gatica Triglyceride [Mass/Vol] 173 mg/dL Critically high <=150 [facility] Comment on above: Performed By: #### L IVER, TSH, BMP, LIPID ####[facility] [address] [address]Dr. Rasta Gatica VLDL CALC 34.6 mg/dL Normal [facility] Comment on above: Performed By: #### L IVER, TSH, BMP, LIPID ####[facility] [address] [place] [id number]. Rasta Gatica LIVER PROFILEon 02-02-2022 Albumin [Mass/Vol] 3.5 g/dL Normal 3.4-5.0 [facility] Comment on above: Performed By: #### L IVER, TSH, BMP, LIPID ####[facility] [address] [address]Dr. Rasta Gatica Albumin/Globulin [Mass ratio] 1.1 {ratio} Normal [facility] Comment on above: Performed By: #### L IVER, TSH, BMP, LIPID ####[facility] [address] [address]Dr. Rasta Gatica ALP [Catalytic activity/Vol] 71 U/L Normal 46-116 [facility] Comment on above: Performed By: #### L IVER, TSH, BMP, LIPID ####[facility] [address] [address]Dr. Rasta Gatica ALT [Catalytic activity/Vol] 15 U/L Normal 14-59 [facility] Comment on above: Performed By: #### L IVER, TSH, BMP, LIPID ####[facility] [address] [place] [address]Dr. Karrieroopa Gatica AST [Catalytic activity/Vol] 8 U/L Critically low 15-37 [facility] Comment on above: Performed By: #### L IVER, TSH, BMP, LIPID ####[facility] [address] [place], [place] [address]Dr. Karrieroopa Gatica BILI, CONJUGATED <0.1 Normal 0.0-0.2 [facility] Comment on above: Performed By: #### L IVER, TSH, BMP, LIPID ####[facility] [address] [place], [place] [address]Dr. Rasta Gatica Bilirubin [Mass/Vol] 0.1 mg/dL Critically low 0.2-1.0 [facility] Comment on above: Performed By: #### L IVER, TSH, BMP, LIPID ####[facility] [address] [place], [place] [address]Dr. Karrieroopa Gatica Globulin (S) [Mass/Vol] 3.3 g/dL Normal [facility] Comment on above: Performed By: #### L IVER, TSH, BMP, LIPID ####[facility] [address] [address]Dr. Rasta Gatica Protein [Mass/Vol] 6.8 g/dL Normal 6.4-8.2 [facility] Comment on above: Performed By: #### L IVER, TSH, BMP, LIPID ####[facility] [address] [place] [address] [address]Dr. Rasta Gatica PROF CHEM 8 (BAS METB)on Anion gap [Moles/Vol] 10.6 mmol/L Normal [facility] Comment on above: Performed By: #### L IVER, TSH, BMP, LIPID ####[facility] [address] [place] [address]Dr. Rasta Gatica Calcium [Mass/Vol] 9.2 mg/dL Normal 8.5-10.1 [facility] Comment on above: Performed By: #### L IVER, TSH, BMP, LIPID ####[facility] [address] [place], [place] [address]Dr. Rasta Gatica Chloride [Moles/Vol] 106 mmol/L Normal 98-107 [facility] Comment on above: Performed By: #### L IVER, TSH, BMP, LIPID ####[facility] [address] [place], [place] [address]Dr. Karrieroopa Gatica CO2 [Moles/Vol] 29.3 mmol/L Normal 21.0-32.0 [facility] Comment on above: Performed By: #### L IVER, TSH, BMP, LIPID ####[facility] [address] [place] [address]Dr. Rasta Gatica Creatinine [Mass/Vol] 0.63 mg/dL Normal 0.55-1.02 [facility] Comment on above: Performed By: #### L IVER, TSH, BMP, LIPID ####[facility] [address] [place] [address]Dr. Rasta Gatica EGFR-AF MALAGASY >60 Normal >=60 [facility] Comment on above: Performed By: #### L IVER, TSH, BMP, LIPID ####[facility] [address] [place] [address]Dr. Rasta Gatica EGFR-NON AF MALAGASY >60 Normal >=60 [facility] Comment on above: Performed By: #### L IVER, TSH, BMP, LIPID ####[facility] [address] [place] [address]Dr. Rasta Gatica Glucose [Mass/Vol] 82 mg/dL Normal 74-106 [facility] Comment on above: Performed By: #### L IVER, TSH, BMP, LIPID ####[facility] [address] [place] [address]Dr. Rasta Gatica Potassium [Moles/Vol] 3.9 mmol/L Normal 3.5-5.1 [facility] Comment on above: Performed By: #### L IVER, TSH, BMP, LIPID ####[facility] [address] [place] [address]Dr. Rasta Gatica Sodium [Moles/Vol] 142 mmol/L Normal 136-145 [facility] Comment on above: Performed By: #### L IVER, TSH, BMP, LIPID ####[facility] [address] [place] [address]Dr. Rasta Gatica Urea nitrogen [Mass/Vol] 11.0 mg/dL Normal 7.0-18.0 [facility] Comment on above: Performed By: #### L IVER, TSH, BMP, LIPID ####[facility] [address] [place] [address]Dr. Rasta Gatica Urea nitrogen/Creatinine [Mass ratio] 17.5 mg/mg Normal [facility] Comment on above: Performed By: #### L IVER, TSH, BMP, LIPID ####[facility] [address] [address]Dr. Rasta Gatica TSHon 02-02-2022 TSH 1.214 uIU/mL Normal 0.358-3.740 [facility] Comment on above: Performed By: #### L IVER, TSH, BMP, LIPID ####[facility] [address] [place] [address]Dr. Rasta Gatica VITAMIN D 25 OHon 02-02-2022 VIT D 25-OH 28.2 ng/mL Normal [facility] Comment on above: Performed By: #### V ITAD #### [facility] [address] [place], [place] [address] Dr. Rasta Gatica VIT D RANGES SEE BELOW Normal [facility] Comment on above: Result Comment: <20 ng/mL Vit D deficient 20 - <30 ng/mL Vit D insufficient 30 - 100 ng/mL Vit D sufficient >100 ng/mL Potential Toxicity Performed By: #### V ITAD #### [facility] [address] [place], [place] [address] Dr. 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 Medicat (more content not included)... [facility] Comment on above: Result Comment: Elec tronically Signed By: Isi Stoll PA-C\.br\Date and Time Signed: 08/08/21 18:06 EDT\.br\Electronically Co-Signed By: Sourav Stinson DO\.br\Date and Time Co-Signed: 08/11/21 07:27 EDT Animal Bite Investigationon 08-08-2021 Animal Bite Investigation [id number]# 1.00CD:127 [facility] Coding Summary.on 08-08-2021 Coding Summary. CD:[id number] G h0bWw+PGhlYWQ+UO0CCXD gD66jqXJmbF2UA7zZYM4G RMJMQIZSXL2TLC4dtRH1G NpxA7BaihLm OwvyzTKfNE73HLa8TIO4b FvaWXoioQ4smAYoY8e1Qc FqKG97pD42TVcxEHEpKqR 3LjZpbjsgbWFy A8qpOtLsrLYaCoh+PHRhY mxlIHdpZHRoPScxMDAlJy DnyVvuJO9fFc3mSKChALG vbGxhcHNlOiBj i0egISHtMChyWE4ytQwzK 1GdrMD9QDImh0d8Jy82iB I+ISMwJQK0pUyvQLcgr66 2SqRhr5paKWR6 uFJbGGboHVB6R57ep5X0N KSmZLLxYVP1bXQ9pN3mvC ojjuglV8XncTPwEvX8RIV 1nPZwoU1kkIkh xgcksT4mAlc+V03FCL0VO JBERC8MRdo9T9MrXaqbgQ I+IK19PCXjLA57rJMyyDF vc2hpyNv9TvQn UMDrZBI5uZlyRKmzm7EkA IEqY42yoGJft5C4NZPhvB pgbTMcUyAxyCO8xW8cETw xfzxtz1ibysno Nxfgu2tprh48xD16T37mC MqpPOErGOE2GFIdQXKwiT xdgk7zoY5uGo8+FAock9z jg0qhqAq0TrIx GXZgtdQskFylXBL9v9NyV x55C4SxiTfpo8OsYni5wc 27aXLcw2U4zSX1XXpcTYQ rqB1xHYguYwA0 FGKgSfUtbL66gOUxUCpfL j6ppIhkgGdlRU8dBTOafo sxTICsoM1hRQQjlQBjqDv nDF9fYNTyphvr h582GyUzTKZ4GEFunQXqR 1FcbW5hItIuRHPzOSEzI6 LdvKGeUQcqF089QSkmOnF 4EXRuyhSfF9Li PQOhbWsaXqY3y6H4Tk5Ph 7BdgpanXYF7YYhaBDL1Yx NgZpIwVoC1E6FaXeb4DHG neKkgOB8iL8Db EXTzoxqldsmrbMV4DLVsY XYqxR32jQLvDTesHq4ry7 T5m867HZUwOFYgdM77Vz1 udDogMTBwdCBU aZ8njdmrv4ithyjnLnWsB AFxFFr0VCt4VEXkdAjzYb GuZGS8NwZ7UZR8mQLixI6 gwDtsdmmfyN3w Oyc+R10rtK4vHFK6LZJ5c rdiYDMhwzXnGV96MN39A6 RyPjwvdGFibGU+PGRpdiB glJgqIJ5vHaRn y0raa4MnZGnkI1RrQBPfL YqpGaq5ZANpCQK3pGS0qW 9sHGAbIUgcb5U0mZN7C0Z xlwTfcc9bi5pi VRSdAQitC76xrOEro5J2Q APbmXL7SFUmaLeoIsWdjB 93Oyc+UFDsgJuly3ZyHat hf9qew6skmIt4 HkQvPDEqaoNihCfoVLW9a 6OaGb04L03yIClpWKVzOA AmQGHcKEHenGxqrf7ruM7 wIi8+PGNvbCB3 yAM5qQ7bZHBtRbK1YAodL 359RrZmkLLjOtduk6tqd1 nmrUo9XdZmJQTedfSxuMq mRDT1h7LqEt80 Q12eQRugYIFrDALdUBGhV NLlvWggkx1dsZ5bLs2+PC 9hs1ysrc60qB21xWY+PHR eCWW0sPmwVSwr UUCsxI2xSJijUpN8RKRmV dUygB62nBKuQFlwQm8mnI askShzLB8fWLOtygdym81 4KuIte4fcWLTf kYIuQAbtQXL0L77su8V6A ZRhXEIqSUA4tBQ2mK7yfV lnbjogbGVmdDsgdmVydGl zRNmeBRdjY635 IHRvcDsnPlBhdGllbnQgT mFkBMk1X3WfEhg0KVRulL fiWX5jbMNvNLpcYv2tuNh eyUfjNT5kZNVq lbeyh081LvZdf7zbGBCug IXkLOizIAK7S25zk3Y0RS XuDZQjZVV5rGJ6aW6xpFi nbjogbGVmdDsg egCsxRohBSswPYwrP027L HRvcDsnPkJpcnRoIERhdG K7FJ23YV58eNUmj6E1xGL 2P6LhDCDsvinc grosfNM9DREoQTFcrZ48A l9ozCiuBm5kSILbTXL8EB SsvXVqN1AwaC0cInPcKDV kZDVpH9DqgEKs LOfiA205GLgpCvS3KYZgu rGkX6KwMVBjaIzlRiY4q5 Q9Es5GX2I5XV23EN34tDL ph5B5aXC2Y3Uj EOYbafnhgxwxkJS5DTSkZ OCvsD96Pb0crQrsYw1eOP KfEXW7EBFrrZEsU8UznI5 yOiAjMDAwMDAw U1DwdFOnZZemB638WWpcK sF1ETKykjZpN9UlAEMqbX cbPwN4f8C6Be4VFGi4WZ1 6UQ26tTWui7U5 yNZ2P8JgZQCrwvncgjqqz XN7BRSdKXDvtL51Ny8hkF nuXp2kTMDpGRC3YPYfxMR bJ2SxaN9nSrWu LUCeJWSwS5AvrLJnMOtdJ 069ZNqwIiM8MLEnlyAjG6 CnIMSakCdtZlN8y5J0Eh5 TGDTlQK06SWZ3 pEY9VC39YD81K1VyDxwkm GFibGU+PHRhYmxlIHdpZH RoPScxMDAlJyBzdHlsZT0 mAa5wFIPtYMRd xAgypXJjDzAnh7orGQQdY RzlAQ1jtIilR4WymYM1MW Hgt7x1Mu45D05wU8OgvCD +RRGvqLO0uNC2 zU6vOcQfHiY4CBykM107X kQhzBUrWhjkn6peq4ywtH b5WkC5EJIydoRdiJkkIVI 6i4ZeKu60U06s IHdpZHRoPSIxNSUiIHZhb Biuhi9syK7bKe6+PGNvbC C0aOJ4dY4iZlKuGtR4XXz eI985PwTrmFQy Yphta6zuf5xsmTh8YlQgM YGhwtXjbDrvBCH9j7RjIu 57E9MmrIdgf9OvEqk0uk0 2lSUkr9Z3pGJ8 H1KsDJWladwaiMQfzYubP P6yQIXlckhmBNVhsJ7fBW WjJ2u7OhAjGaI1SGxiZ9A ddkM1HPZurJZy ETpbTEF6E02rb8W5UYVwL ENeYMV0dVD4rC1guPbrwi ogbGVmdDsgdmVydGljYWw rVOsnF889QESv mWbhSIBfkC4nUPNxrMFep FjlXF4iOIKpqbuuTdAJDF NOJHMGLOcIZBBPDN71EX5 9xNIhz6B8bQC7 K9JfPXDjrukeencpuFO3G WCpYOIoeK16eYClPExxEy 6wk3J5a600SDYwCAGffG8 2Lb7xoPutHGYd nZDTtX5vebhnh3tqtapvD sNdTIQuESt7PVx9CQCkyK mdLbIbYVL1CiN9CPH6tMO jbC9kfQrcbgxd rY2pAeu+TONzLcejGPl6R jwvdGQ+RNRcOYT0qExbRG tfAXWnyK5oSHQdW2x3DrA pPzF3LGogH3Qb KFKyrtbeRa27rX1xOzDjO yK2GLysJ0BanxW3YUBqaK LvYXsvEWB9N72lb1R9LAC fQRYyUPF2vOW6 iZ5gjTkkmiwhyKRbnJvbw gHdyZrtBIxaUEkvR494OA RzhYvbChG1CNztNEKtEA9 3ZY13hOByr0H5 lPS5P0BqHBYkpfuxwxgsm WR6HZWpTLHagL21gZGlYM ayHe7jg9D5c105EZVgEWD igC43Nc2joQnn YRQoyIKGgA5gqhhat1fdi phnZfMoZYDxVGd5KHh8GY JotDxnYiGjGWP6TzN9CBV 8tNOnoR3rfNfr swridS8gMql+RmVtYWxlP O94FW08fSXku7Q7yDC6P5 OtCXBvyuzvqjiscUS4FRC zYARgrC28qODe MRrzFv1ik1S7q335DCQwA EQluO10Bz4egPmkWOOxyL XRzY1mbqcyg7vierklSdA wMDYrJTo9DJo5 DHPzmOdeWkYyZXC5UcN2R SG7lSJycH7ftPvqmgjgfX 9wOyc+PX2qyqeyibD8TY3 9OW02K0WkHmkh dGFibGU+PHRhYmxlIHdpZ HRoPScxMDAlJyBzdHlsZT 0tVq2wIFEkXVWsgXzgwNM yRcMdr2boQKPh OBcoFS2rrXyaU4DsmBO7H FGew5e2Ts61J13oF4FcvT A+VMBosJT5qIM0fM9nRuU oLgN4CBjbO536 OyGdtVXxNrzii5ekz1umu Hr2KcUrOBEoubJhrAusWD A1f1RwNa23H42tGWixSZI oPSIyMCUiIHZh gVdqpt0upF7xHa2+PGNvb FG6iGO7jO3lBbSyMpY1IK dvI082IeZqpCFxZeluK55 xC4ChrMM+PHRy Lck6QTTgbHhmIU2zgNKmC AxzXb0zPXH3KzCuKsPjFO ezA5LwDEUrnjtyurpoiNJ 2CLOpIDEoaE04 Kr3buNxxDu3oXORiMLO6Z YKmyXOtJ8ZhzI1wFiGtZI NrRMKsV2KntLQxHOsaQ01 8LDkoKkM6BLTl lfEdI9AnJBSsrLfyYhO6h 8M4Ln9SePjhpYTuJT5rVf BeIIo5X7SbNbw4UFPbpOv kVY5klCLnWYvx Eq8ryRxtoHfoNL3mNNDjy wmzc766UrSba4bjKAKzgL LbXNjsJPC5L12kr6T1YWQ zNUGcSBH2lCU1 uN5bhBluyabmyZXruIsns xWylZrgDBxnWVvlR461GY YqrNhuUgRDVgo6X7YcHqg 4PKZipMccVX4r mSVcVVocPb8boRcicEqrU E1dQZAcptsuu657RfHst3 xoHESjiDOoKVphIPC5E51 up2B4CSIfHEYs AYU1qBM1aL5ylFgpztpmb GVmdDsgdmVydGljYWwtYW wlD939TVNqiDcdYr6TMae 5X1CzFuu7ORIm kNzsFL6dpLUsQEkpGp7un OihrTinLD8pEFYfzbpte7 33QqZsd6nmHAYwtPNlLNj dOKM0I32pc5E7 PMVxQZSiWGW8aMY8rO7sb GlnbjogbGVmdDsgdmVydG mjNIeiUWnaY998BJVpgEb nPlBheWVyOjwv dGQ+LW52jg44B3TdRzqyT mt6FPIfIQZ2hBN9tR4iUJ TjASqaa2R0jQW3L8UhzgT pbv7ij3kgTIYs ZTog (more content not included)... Normal [facility] Consent for Treatmenton Consent for Treatment [id number]#1 .00CD:127 Normal [facility] Discharge Instructionson Discharge Instructions [id number]# 1.00CD:127 Normal [facility] ED Clinical Summaryon 2021 ED Clinical Summary [place] [id number] ED Clinical Summary Person Information Name: LIZ KENYON [facility] Age: 26 Years : 1995 Sex: Female Language: Korean PCP: MICHAEL HELMS MD Marital Status: Phone: [phone] Visit Id: Visit Reason: Dog bite: hand; [...] 08/08/2021 15:44:14 08/08/2021 15:44:14 ADDRESS: [address] [place] [id number] PHYS DOC NOTES: MEDICAL INFORMATION: Prescriptions Given: New Medications [id number], [address] [place], [place] [id number], [phone] amoxicillin-clavulana te (Augmentin 875 mg oral tablet) [...] PATIENT EDUCATION INFORMATION: Instructions: Animal Bite, Adult, Ngxe-fs-Bcoa Follow up: With: Address: When: MICHAEL HELMS [address] [place] [id number] Business (1) In 3 days 08/11/2021 DIAGNOSIS: 1:Dog bite of middle finger; Bitten by dog, initial encounter Normal [facility] ED Patient Education Noteon 08-08-2021 ED Patient [...] cannot use soap and water, 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 ? Change your bandage as told by [...] bad smell. Medicines ? Take or apply izag-vtv-tnbqhwm and prescription medicines only as told by [...] 03/25/2006 Document Revised: 03/20/2018 Document Reviewed: 10/03/2017 [employer] Patient Education ? 2019 [employer]. Normal [facility] ED Patient Summaryon 022 ED Patient Summary [address] [address] Patient Discharge Instructions Person Information Name: LIZ KENYON Age: 26 Years Arrival Date: 08/08/2021 14:29:26 Discharge Diagnosis: 1:Dog bite of middle finger; Bitten by dog, initial encounter Primary Care Physician: MICHAEL HELMS MD Provider Information Primary Provider: Sourav Stinson DO Advanced [employer] Operator:None The exam and treatment you received in [...] With: Address: When: MICHAEL HELMS [address] [place], [place] [id number] Business (1) In 3 days 08/11/2021 In the event that this physician does not participate in your insurance network, please consult with your insurance company to find a nearby participating provider. Patient Education Materials: Animal Bite, Adult, Slef-kg-Jlpy A MESSAGE TO ALL PATIENTS REGARDING OPIOIDS PRESCRIPTION OPIOIDS: WHAT YOU NEED TO KNOW Prescription opioids can be used to help relieve aohhnpvv-lr-dpvsnu pain and are often prescribed following a [...] be struggling with addiction, tell your health client care consultant and ask for guidance or call [facility]?S National Helpline at [phone] (more content not included)... Normal [facility] Coding Summary.on 02-24-2021 Coding Summary. CD:[id number] G h0bWw+PGhlYWQ+KD0VBYE xX85niKUtyY1DK9sRFY3O KGIOMQPLZM8YOT7goLK9C DssQ0GqmdLi CnqxcROdIO48YTp3NKK6d VkjJEgplJ2skQSfA5q7Xw AwMX21dW12FJmwDRTcBgK 3LjZpbjsgbWFy N3ggHsEfuRLeFjc+PHRhY mxlIHdpZHRoPScxMDAlJy RrzWqjCH2vFb4cJYFsDCO vbGxhcHNlOiBj r1ngALEdGNltVF1pePvpH 7FqwPT8EWNcs7x5Pm50uN I+BYPcJGZ0uQxmBPezg38 2BxVjx1axKYV8 dJAmBSvoYVH0S47ok1G8F SDtOTWvEOG3aEK1yQ4xxL inizczW7JvfCFpTvQ5QTX 2cJOifM5nfMdx wvwxrG3qTbr+R27QKA4GA BOCCR6UUvy2X2YgCbuznF I+IP83AKJnRO79jDUcwKU os5zngQh1HsMy GVXsWRT2bQfiYQsei8VkO DYlT55vbMTdi5F1FXXxzB uokESvWaQypAH1mU4hFKd giwvjs3ryjqkh Siueu4sghm74tK04C18wX KceYPLdXRP6VXMcWOHtyD sjtl0bmJ8gRg0+GGlxr7u kj3jjxSn9FaYk RKPtnrCviEajUJJ1r5EuZ b78A4YjiCiwm3CpYoe1nv 04kYNvz0P7jHS2UOnkIMX dvN0jLCinXfV0 SFTtJvKqkG85pXIvQYckX l8wpGotpSbuVV2sDRMczz ieFUIwuE7iQPYcoUNfsCy hZV8sOVWettfg m852BmRdYAL7OWZgpURsD 8QyjN0hEgRxFNIcUUHnD8 MdiWQkZAjaE427BGmyEgS 3NHFaysFsQ2Ow EPYnwBnhGvF3f1C9Vg4Gs 5JbnddoITB9SApmDBSaFr H9ZvCuApH7Q3IeYff6XDD kgArhQU4wL5Ij YRXkmpgfmwkmpHO9YBGsQ CBhxY45aKOeXTmzSw4yi4 I2g477SKYpWJSksD35Du0 udDogMTBwdCBU dA9yhaokv8kbesbcToXmJ UUlRBo3CVc7XKChsTdbHw LvYMW8IcR2PHB2nDJfxZ8 vjBrffwemzR9h Oyc+P87imI5jIEN0HIE1e squFYJrxbOhTG95GD35Z7 RyPjwvdGFibGU+PGRpdiB akJfgTP3mWhAp j1nfs7MeUEteA0CdLEWsU JylYej1HEQgZQB9gDD0lK 2dDDAyUNwdo2B6yVN0T9N pjjNtlc8uz0zw UFCjAWowM22cfOSuk3Z9M DZfvYS7VLApsOjfRkQyvM 93Oyc+UAIpxFvrq6SpQwk dg4osq1edySg3 VuHcLEFcznRkwXqzOID0s 8EqYc90D67iHWbnIANhZZ IoPOMjRRSmfKfvhk5cnM9 wIi8+PGNvbCB3 uGT9qW0bIHImXdP5ODhsW 599YjMgjOWsJduln3gzz3 spoEk7UwFcVBCvyyQdmAh uPFF9e8RlDx62 V72hVGtzIEDfCGGdLYNeH LUtvQubti3qjI2gAh7+PC 1yg9eflh66hW28uOG+PHR rRUK7fArnLJvy NONttS3gHZjaDkO8WOKsC zRtvZ60mGAxXMszEz1ciL rwaCxuFC3rGVYqmxuge63 5TsTol4grRXPe tZUwXCvnNAF5X86ru2F7M GCmOIGpOUV1oBQ9nR4ejO lnbjogbGVmdDsgdmVydGl lSQooNNogA572 IHRvcDsnPlBhdGllbnQgT zVhJNc4P6NmHtp1OKWjgY ndXR0yzWLsEOjpMf3ymHp enYciSR9qSVTc ywrob669GjQaj2rzOPCqj HAwLJofVNU7X95vz6E7PR JoIGMmXYX7rOX5pS5vhZd nbjogbGVmdDsg mbAbwTvtHHotKBfyJ508X HRvcDsnPkJpcnRoIERhdG O9PQ17JT96vNIfi4Z7sKA 0N4AyRVKlrfxa lfsqsQE2WQVtZCTepS98U g5atKgnOo7pDBCcVMC9NL RijXJuI7LojL3dSmLfCJB hJELhL3VlyMTh YPmnD984FUgaOeJ9MGJph tEvS6IfNTJkyIguFfF1m3 J7Ko3RS6Q3NS44RS04wAR ex2P4jFG1Z6Pd ZXZndwkbhqsqbAS2SVStN WMdiL31Rv0rtJywFv5mUJ WjCAK1VJIkrTBnN3VutQ5 yOiAjMDAwMDAw W6PaiJIuVZflO413DLlsI wE7QFCrauNeJ0OdRNFrnS lxWuH0q8M1Jz9XAHh0DL0 2LL86wDWdy5Q6 pTU8E7UyJFAobhyvdkrmt WO2JZZnDPJfiQ58Jy3auG pmFm7uUMKsHXY2XQVlkEV rC0HmyV4eQgJp IKUuPRInO4QalYBqUGfuY 092HTycSkT6NWYpztLpC7 QfHFTrdJqqNrF5c5T2Mu8 GSTSaHT98UBL9 hWC8PX88QV23L3AxKoaru GFibGU+PHRhYmxlIHdpZH RoPScxMDAlJyBzdHlsZT0 bWc7eBQRyWGWb yRrxbLCwTaOoa7bvEGJvE UlpUC9hqKqhH2MfkSK0FT Qww2w3Ki70Y45kL9CrbJO +ZTDjhZA9nQV6 gM6aOyEpPfP0WIebO792X cCumKWfZkvpk8skt2yzcS d5QgH0BEFimdSeiXfsZVB 9f0PuTz90V51u IHdpZHRoPSIxNSUiIHZhb Pfvuz1zqS0xJf4+PGNvbC W5aGY9nB7iXgCeHcM4RFd iB255KoUuqPXi Cuhhs1ywr8yupEp4AtNrJ TCxpvVoxXuzOIB1e8NuWa 95I2ItoYwrw2MyYeo1cy9 7vZHpo9O0yBC7 K0RdYKKnzjwzbGQdyEtgZ N9xOJIrdtabXWMuvH8hUK IcT5z6KuTlWoY6AKptV1R nppD5TCAgzSWp VPsaXRY6I16lp9Z1LFOlN UYbQEH9gCK3mF8fhVwieq ogbGVmdDsgdmVydGljYWw oHCclK609EFSu pJihAVQfkU0zMIUddYEqj HflDV4bKIXibpspUaTCXV XFEDZSDMsAPHIKUB09KV5 4gKRbx3O4mVL6 T7XqMSQmseinapebfEX4X CTcQHKzyZ11bMDpRNbfKa 2ww6K3z342WELeYBVchF9 6Dz6ocCtwCBAk hZMIaN6wrvezq3gtpriyR wEyCIPsZWj0WXh9UPEbfD wqGuKwXZX8LhT7OXD1nJJ aiL7soYadpehx yI0zZzr+BFUwAbdnYHy5L jwvdGQ+ZYExYFT6uBlkHL ahAHWvvD4kDILpO4r2DiJ gTjF2PFhcM5Rk DACzglvwGk70wA2mChCaR mJ9FRklJ8TyjmD5ZQQleG JuAOqjFXO6E97jr0F7PKT eQDQoPUU7bRS5 aE3cjTjjyrtnoQWhtPbfa sKjsKjjTEioSDvgY732MP SpaMruTsA1THdqGYUdCA1 9KJ40zAAcl2L2 rMN0V5AtELSpiiowwvjpc KJ4GJRxDKDkpP63pETlIN jsIr2om3A7s716AJHfAAI rnK59Jr2ruDck QBVpvLHKlY0tgzcqy8jii fbvUeKsRNKhCMh2GIm4MA JcjAzwAxSaYJL0CxN0IQH 7zSNbwU5ehWrh frffeI0kYzi+RmVtYWxlP W82KX72hANeb6M7bHH5R5 SxDRJlweokylmnaRG3RVA oOSUdiG29bZZb PGpaEw9je0A9j862JFXmD LKfhW14Oh3bzCczDADxtI BOdF3pjpdzg1ytglxnYkN nLCUqRBf2BDc9 VYStbSidErEhJIW7MlY8O EW5eHIerL7giMuddoxvqY 9wOyc+XC3imhdxxcL6WR7 2TE49G0HwNvai dGFibGU+PHRhYmxlIHdpZ HRoPScxMDAlJyBzdHlsZT 6nRg7jSJCmDFRrfBimeIV yQrMlm1jqGAOu AKxiKP9whCrfC5FpxCW5V TOkz5h6Xm92G96hF4LbwF A+MRGyrIZ9fLF3jL5tEfK tZjJ7ZIbvI925 RuKwyXUfWadqt9exd4iwk Nw9QzKyYXApzjSqpXtkAS V3u3WjNf62A44iJIinFBL oPSIyMCUiIHZh uBqwnc4fcE5sXx0+PGNvb RN0qZQ2mO8ySdWhPdV5RJ qeX485CyNiyDTlYxnjB04 pE5DshKI+PHRy Via3LATuiEmxVX1sjKGyX VsnIn8iOMP9QcOvOhWcZQ cxS6RjREZahsqggitgiCA 3ATElYZMmtH83 Cm0syEvoSa1hCSEoTHJ3L MKjxRGxW2BscY7qMrSrMB WhFZQvT8NamFFmRZcxY53 2WMujNqG4BNEv kmUbH7HoIFNtnXarDpM2w 9W1Mb8HlBiqrFBhMC3qIr TdOYo4N5OcByt4LUYghPm pZS8fuKSfWQad Fg3zrQqjnCxoUN3uXDVkk exew115CuEoh5xwJWYriF MxEVtiKZS2S82cl4F3OZN iXDNaMBN9mUC1 hP4vkMfmrbwxvIKwfXbaz oZeaIxrDFalEUqxD034KH TmzJmiDmZELyt7J2MfRrm 3YWPryXdjSX7l zKPjFEwlVb0sbOdkuUhkO T8mFRHszsdxv913OnExh1 hgQRHdfJHvUYarELK0P39 jd4G5XLVrENPa NWH1jAZ4nE3dmPttiwjzj GVmdDsgdmVydGljYWwtYW khD454BOXraBuiIj9CSpz 0W2VrDut7XMWu jOplRG0kmBQfYTzgQd2vz KbfoBjcZI2cKVOpniqkk9 57LyVvv6tmPMDlkPZyUAl gMDD4X44jo7O0 UEIbDWVbGMT5eQE2dH2bc GlnbjogbGVmdDsgdmVydG tmWDlvFDgvZ462CNQopDh nPlBheWVyOjwv dGQ+ZH56yb66E5KyNtkvA zm8IAJdRYI5wRO8tN8jNU SgVOprr2M2dUD7B0ZzvrR ucp0qt9tyYEQt ZTog (more content not included)... Normal [facility] .Manual Abson 02-23-2021 Basophils/Leukocyte s Manual cnt (Bld) [Pure # fraction] 0.0 E9/L Normal 0.0-0.2 [facility] Comment on above: Performed By: #### 2 [id number] ####[facility] [id number] [place] [address] Eosinophils/Leukocy kenyon Manual cnt (Bld) [Pure # fraction] 0.0 E9/L Normal 0.0-0.5 [facility] Comment on above: Performed By: #### 2 [id number] ####[facility] [id number] [place] [address] Lymphocytes/Leukocy kenyon Manual cnt (Bld) [Pure # fraction] 1.8 E9/L Normal 1.0-4.0 [facility] Comment on above: Performed By: #### 2 [id number], [id number], [id number] ####[facility] [id number] [place] [address] Monocytes/Leukocyte s Manual cnt (Bld) [Pure # fraction] 0.3 E9/L Normal 0.2-1.0 [facility] Comment on above: Performed By: #### 2 [id number], [id number], [id number], [id number] ####[facility] [id number] [place] [address] Neutrophils/Leukocy kenyon Auto (Bld) [Pure # fraction] 1.7 E9/L Low 2.0-7.5 [facility] Comment on above: Performed By: #### 2 340882, 72811242, 81237321, 77021633, 4389848, 4816968 ####[facility] [address] [place] [address] BMPon 02-23-2021 Creatinine [Mass/Vol] 0.7 mg/dL Normal 0.5-1.3 [facility] Comment on above: Performed By: #### 2 120395, 06388636, 12697455, 36360416, 7713792, 9296525 ####[facility] [address] [place] [address] Urea nitrogen [Mass/Vol] 7 mg/dL Normal 5-21 [facility] Comment on above: Performed By: #### 2 613623, 12067736, 55118016, 45586142, 9113327, 2177212 ####[facility] [address] [place] [address] Urea nitrogen/Creatinine [Mass ratio] 10 No Units Normal 10-20 [facility] Comment on above: Performed By: #### 2 799776, 55126585, 98217661, 81310791, 8306106, 2692662 ####[facility] [address] [place] [address] Anion gap [Moles/Vol] 13 mmol/L Normal 6-16 [facility] Comment on above: Performed By: #### 2 516712, 75334375, 09928497, 52386346, 1372289, 8981044 ####[facility] [address] [place] [address] Calcium [Mass/Vol] 9.0 mg/dL Normal 8.9-11.1 [facility] Comment on above: Performed By: #### 2 333197, 39005593, 15584811, 00491430, 2123991, 6488550 ####[facility] [address] [place] [address] Chloride [Moles/Vol] 103 mmol/L Normal 101-111 [facility] Comment on above: Performed By: #### 2 582399, 32663835, 65692084, 73625091, 4484434, 8303377 ####[facility] [address] [place] [address] CO2 [Moles/Vol] 22 mmol/L Normal 21-31 [facility] Comment on above: Performed By: #### 2 808686, 80423333, 24508153, 77418212, 4861320, 5169972 ####[facility] [address] [place] [address] Glucose [Mass/Vol] 129 mg/dL Normal 55-199 [facility] Comment on above: Result Comment: If t his glucose result represents a fasting glucose, interpretation should refer to the following reference range: 55-99 mg/dL Performed By: #### 2 153758, 49306903, 19004042, 93359546, 4448168, 8772933 ####[facility] [address] [place] [address] Potassium [Moles/Vol] 3.3 mmol/L Low 3.5-5.3 [facility] Comment on above: Performed By: #### 2 434226, 00361250, 00101173, 65348824, 7158776, 0601622 ####[facility] [address] [place] [address] Sodium [Moles/Vol] 135 mmol/L Normal 135-145 [facility] Comment on above: Performed By: #### 2 213441, 14110965, 97375141, 36893298, 6128819, 2735258 ####[facility] [address] [place] [address] CBC w/ Auto Diffon Erythrocyte distribution width (RBC) [Ratio] 13.5 % Normal 10.9-14.2 [facility] Comment on above: Performed By: #### 2 255612, 44754757, 85332572, 30174203, 2022278, 8778910 ####[address] [place] [address] Hematocrit (Bld) [Volume fraction] 37.1 % Normal 34.0-46.0 [facility] Comment on above: Performed By: #### 2 096409, 45206276, 28938670, 12310952, 4023777, 9673756 ####[address] [place] [address] Hemoglobin (Bld) [Mass/Vol] 12.5 g/dL Normal 12.0-16.0 [facility] Comment on above: Performed By: #### 2 374069, 30975660, 14532253, 81921561, 0066140, 4266507 ####[address] [place] [address] MCH (RBC) [Entitic mass] 29.4 pg Normal 27.0-34.0 [facility] Comment on above: Performed By: #### 2 796296, 26124907, 42230146, 42979612, 5390565, 0502871 ####[address] [address] MCHC (RBC) [Mass/Vol] 33.6 g/dL Normal 31.4-36.0 [facility] Comment on above: Performed By: #### 2 359215, 81715557, 24440127, 33117919, 7173149, 4702019 ####[address] [place] [address] MCV (RBC) [Entitic vol] 87.4 fL Normal 80.0-100.0 [facility] Comment on above: Performed By: #### 2 106008, 49842838, 49287045, 37595453, 4708057, 1200349 ####[facility] [address] [place] [address] Platelet mean volume (Bld) [Entitic vol] 9.4 fL Normal 6.4-10.8 [facility] Comment on above: Performed By: #### 2 579163, 09683495, 55950979, 61194980, 1254112, 3365591 ####[facility] [address] [place] [address] Platelets (Bld) [#/Vol] 208.0 E9/L Normal 150.0-500.0 [facility] Comment on above: Performed By: #### 2 072762, 18708610, 41935254, 62583921, 6499047, 4668121 ####[address] [place] [address] RBC (Bld) [#/Vol] 4.2 E12/L Low 4.3-5.9 [facility] Comment on above: Performed By: #### 2 414472, 81543062, 81032444, 19556223, 0967763, 6423699 ####[facility] [address] [place] [address] WBC corrected for nucl RBC Auto (Bld) [#/Vol] 3.8 E9/L Low 4.0-11.0 [facility] Comment on above: Performed By: #### 2 601313, 18092380, 32813497, 90295022, 9562555, 3724239 ####[facility] [address] [place] [address] Consent for Treatmenton 02-06 Consent for Treatment [id number] .[id number]:127 Normal [facility] Discharge Instructionson Discharge Instructions [id number]:127 Normal [facility] ED Clinical Summaryon 2020 ED Clinical Summary [place] [id number] ED Clinical Summary Person Information Name: LIZ KENYON/[place] Age: 26 Years : 1995 Sex: Female Language: Korean PCP: MICHAEL HELMS MD Marital Status: Phone: [phone] Visit Id: Visit Reason: Shortness of breath; [...] 02/23/2021 15:23:48 02/23/2021 15:23:48 02/23/2021 15:23:48 ADDRESS: [facility] [address] [facility] [id number] PHYS DOC NOTES: MEDICAL INFORMATION: Prescriptions Given: [...] Follow up: With: Address: When: MICHAEL HELMS [address] [place], [place] [id number] Business (1) In 3 days 02/26/2021 DIAGNOSIS: 1:Vaccine reaction Normal [facility] ED Note-Physicianon 02-24-20 ED Note-Physician Basic Information [...] MICHAEL HELMS In 3 days 02/26/[address] [place] [phone] Business (1) Additional Instructions: Patient Education Post-Injection Inflammatory Reaction Attestation Patient seen and evaluated by the physician community program assistant. Attending physician was present in the emergency department and supervised care. This report was transcribed using voice recognition software. Every effort was made to ensure accuracy, however, inadvertently computerized starch cooker mistakes may be present. Appropriate healthcare PPE [...] % (02/23/21 (more content not included)... Normal [facility] Comment on above: Result Comment: Elec tronically [...] a physical exam. During the exam, a redding may be drawn around the injection site. The redding helps to show whether redness in the area is spreading. How is this treated? Treatment for this condition depends on what caused the reaction and how severe the reaction is. Treatment may include: ? Putting an ice pack over the injection site. ? Taking a nonsteroidal anti-inflammatory drug (NSAID) to lessen swelling and itching. ? Taking antibiotic medicine. ? Taking olcb-aoq-bgvnfxl pain medicine. If the reaction affects a joint, you may also need to rest the joint for a while. Follow these instructions at home: Medicines ? If you were prescribed antibiotic medicine, take or apply it as told by your health care provider. Do not stop taking or applying the antibiotic even if you start to feel better. ? Take pgio-psf-luznwgo and prescription medicines only as told by [...] 12/05/2011 Document Revised: 07/17/2019 Document Reviewed: 03/02/2019 [employer] Patient Education ? 2019 [employer] Normal [facility] ED Patient Summaryon 021 ED Patient Summary [place] [address] Patient Discharge Instructions Person Information Name: LIZ KENYON Age: 26 Years Arrival Date: 02/23/2021 12:58:05 Discharge Diagnosis: 1:Vaccine reaction Primary Care Physician: MICHAEL HELMS MD Provider Information Primary Provider: Julee Herrera M.D. [employer] Operator:Robert Urena PA-C The exam and treatment you [...] Follow-up Instructions: With: Address: When: MICHAEL HELMS [address] [place], [place] [address] [employer] (1) In 3 days 02/26/2021 In the event that this physician does not participate in your insurance network, please consult with your insurance company to find a nearby participating provider. Patient Education Materials: Post-Injection Inflammatory Reaction A MESSAGE TO ALL PATIENTS REGARDING OPIOIDS PRESCRIPTION OPIOIDS: WHAT YOU NEED TO KNOW Prescription opioids can be used to help relieve wwoegels-oe-yzrwdr pain and are often prescribed following a [...] be struggling with addiction, tell your health client care consultant and ask for guidance or call [employer]?S National Helpline at 5-655-128-SHOQ. (more content not included)... Normal [facility] Manual Diffon 02-23-2021 Band form neutrophils/100 WBC (Bld) 6 % Normal 0-10 [facility] Comment on above: Order Comment: Order Added by Discern Expert. Performed By: #### 2 984422, 88235186, 69559552, 46113197, 1914058, 1250530 ####[facility] [address] [place] [address] Basophils/100 WBC (Bld) 0 % Normal 0-2 [facility] Comment on above: Order Comment: Order Added by Discern Expert. Performed By: #### 2 864399, 34645183, 01946376, 66809403, 9398050, 8289949 ####[facility] [address] [place] [address] Eosinophils/100 WBC (Bld) 1 % Normal 0-8 [facility] Comment on above: Order Comment: Order Added by Discern Expert. Performed By: #### 2 451399, 03199130, 36316509, 75946705, 2003737, 8760540 ####[facility] [address] [place] [address] Lymphocytes/100 WBC (Bld) 44 % Normal 14-50 [facility] Comment on above: Order Comment: Order Added by Discern Expert. Performed By: #### 2 547190, 98032330, 49271088, 80562192, 8621098, 2076021 ####[facility] [address] [place] [address] Monocytes/100 WBC (Bld) 7 % Normal 4-14 [facility] Comment on above: Order Comment: Order Added by Discern Expert. Performed By: #### 2 533429, 60607741, 26585641, 34552704, 6182209, 8203817 ####[facility] [address] [place] [address] Morphology Mateusz (Bld) [Interp] Normal Normal [facility] Comment on above: Order Comment: Order Added by Discern Expert. Performed By: #### 2 070696, 76747522, 76195486, 60174257, 1351748, 9181547 ####[facility] [address] [place] [address] Segmented neutrophils/100 WBC (Bld) 39 % Normal 36-75 [facility] Comment on above: Order Comment: Order Added by Discern Expert. Performed By: #### 2 434224, 88959271, 18216221, 85558856, 0016211, 3932608 ####[facility] [address] [place] [address] Variant lymphocytes LM Ql (Bld) 3 % Invalid Interpretation Code [facility] Comment on above: Order Comment: Order Added by Discern Expert. Performed By: #### 2 011355, 32181322, 66949587, 43620958, 7941249, 8609808 ####[facility] [address] [place] [address] Prescriptions/Work Noteson 1 04-25-2020 Prescriptions/Work Notes [id number]:127 Normal [facility] Troponin 0 Hr.on 02-23-2021 Troponin I.cardiac [Mass/Vol] 2.30 pg/mL Low 10.10-27.10 [facility] Comment on above: Result Comment: The 95% CI (Confidence Interval) PPV (Positive Predictive Value) for myocardial infarction in females is 38 pg/mL, in males 51 pg/mL. The results should be used in conjunction with clinical conditions of myocardial infarction. (Access High Sensitivity Troponin I Instructions For Use, ABB, November 2017) Performed By: #### 2 015885, 65297447, 89383351, 63290578, 6186468, 8891616 ####[facility] [address] [place] [address] XR Chest Single Viewon 02-23 XR Chest [...] V. Transcribed by: KEMAR Technologist: DYAN Normal [facility] eGFRon 02-23-2021 GFR/1.73 sq M.predicted among blacks MDRD (S/P/Bld) [Vol rate/Area] mL/min/{1.73_m2} Normal >=59 [facility] Comment on above: Order Comment: Order added by Discern Expert. Result Comment: eGFR is race adjusted. AA=. Performed By: #### 2 633113, 32066922, 04953941, 85584826, 1179719, 6885383 ####[facility] [address] [place] [address] GFR/1.73 sq M.predicted among non-blacks MDRD (S/P/Bld) [Vol rate/Area] mL/min/{1.73_m2} Normal >=59 [facility] Comment on above: Order Comment: Order added by Discern Expert. Result Comment: Emblem Cutter jorden kidney disease could be indicated at eGFR's of less than 60 mL/min/1.73m2. Kidney failure is indicated at less than 15 mL/min/1.73m2. Performed By: #### 2 867205, 96398473, 01389887, 63597598, 8441577, 1610077 ####[facility] [address] [place] [address] Ambulatory Clinical Summaryo n 10-14-2020 Ambulatory Clinical Summary {[id number]}CD:[id number] Normal [facility] Vital Signs Date Time Vital Sign Value Performing Clinician Facility 06-17-2024 15:29-0400 Body mass index (BMI) [Ratio] 42.44 kg/m2 Coby VASQUEZ Work Phone: [facility] 06-17-2024 15:29-0400 Body weight 122.92 kg Coby VASQUEZ Work Phone: [facility] 06-17-2024 15:29-0400 Diastolic blood pressure 100 mm[Hg] Coby VASQUEZ Work Phone: [facility] 06-17-2024 15:29-0400 Systolic blood pressure 160 mm[Hg] Coby VASQUEZ Work Phone: [facility] 06-10-2024 15:33-0500 Body mass index (BMI) [Ratio] 41.99 kg/m2 Sam Hooker DO Work Phone: [facility] 06-10-2024 15:33-0500 Body weight 121.62 kg Sam Morro DO Work Phone: [facility] 06-10-2024 15:33-0500 Diastolic blood pressure 80 mm[Hg] Sam Morro DO Work Phone: [facility] 06-10-2024 15:33-0500 Systolic blood pressure 130 mm[Hg] Sam Morro DO Work Phone: [facility] 06-03-2024 16:07-0500 Body mass index (BMI) [Ratio] 42.29 kg/m2 Sam Morro DO Work Phone: [facility] 06-03-2024 16:07-0500 Body weight 122.47 kg Sam Morro DO Work Phone: [facility] 06-03-2024 16:07-0500 Diastolic blood pressure 80 mm[Hg] Sam Morro DO Work Phone: [facility] 06-03-2024 16:07-0500 Systolic blood pressure 138 mm[Hg] Sam Morro DO Work Phone: [facility] 05-26-2024 14:45-0500 Body mass index (BMI) [Ratio] 41.72 kg/m2 Sam Morro DO Work Phone: [facility] 05-26-2024 14:45-0500 Body weight 120.84 kg Sam Morro DO Work Phone: [facility] 05-26-2024 14:45-0500 Diastolic blood pressure 82 mm[Hg] Sam Morro DO Work Phone: [facility] 05-26-2024 14:45-0500 Systolic blood pressure 124 mm[Hg] Sam Morro DO Work Phone: [facility] 05-11-2024 16:21-0500 Body mass index (BMI) [Ratio] 41.63 kg/m2 Sam Morro DO Work Phone: [facility] 05-11-2024 16:21-0500 Body weight 120.57 kg Sam Morro DO Work Phone: [facility] 05-11-2024 16:21-0500 Diastolic blood pressure 82 mm[Hg] Sam Morro DO Work Phone: [facility] 05-11-2024 16:21-0500 Systolic blood pressure 124 mm[Hg] Sam Morro DO Work Phone: [facility] 04-29-2024 15:12-0500 Body mass index (BMI) [Ratio] 41.79 kg/m2 Sam Morro DO Work Phone: [facility] 04-29-2024 15:12-0500 Body weight 121.02 kg Sam Morro DO Work Phone: [facility] 04-29-2024 15:12-0500 Diastolic blood pressure 80 mm[Hg] Sam Morro DO Work Phone: [facility] 04-29-2024 15:12-0500 Systolic blood pressure 130 mm[Hg] Sam Morro DO Work Phone: [facility] 04-15-2024 15:34-0500 Body mass index (BMI) [Ratio] 41.16 kg/m2 Sam Morro DO Work Phone: [facility] 04-15-2024 15:34-0500 Body weight 119.2 kg Sam Morro DO Work Phone: [facility] 04-15-2024 15:34-0500 Diastolic blood pressure 84 mm[Hg] Sam Morro DO Work Phone: [facility] 04-15-2024 15:34-0500 Systolic blood pressure 120 mm[Hg] Sam Morro DO Work Phone: [facility] 03-18-2024 16:17-0500 Body mass index (BMI) [Ratio] 40.69 kg/m2 Sam Morro DO Work Phone: [facility] 03-18-2024 16:17-0500 Body weight 117.84 kg Sam Morro DO Work Phone: [facility] 03-18-2024 16:17-0500 Diastolic blood pressure 64 mm[Hg] Sam Morro DO Work Phone: [facility] 03-18-2024 16:17-0500 Systolic blood pressure 118 mm[Hg] Sam Morro DO Work Phone: [facility] 02-19-2024 15:41-0500 Body mass index (BMI) [Ratio] 39.91 kg/m2 Sam Morro DO Work Phone: [facility] 02-19-2024 15:41-0500 Body weight 115.58 kg Sam Morro DO Work Phone: [facility] 02-19-2024 15:41-0500 Diastolic blood pressure 80 mm[Hg] Sam Morro DO Work Phone: [facility] 02-19-2024 15:41-0500 Systolic blood pressure 126 mm[Hg] Sam Morro DO Work Phone: [facility] 01-22-2024 15:16-0400 Body mass index (BMI) [Ratio] 39.47 kg/m2 Sam Morro DO Work Phone: [facility] 01-22-2024 15:16-0400 Body weight 114.31 kg Sam Morro DO Work Phone: [facility] 01-22-2024 15:16-0400 Diastolic blood pressure 72 mm[Hg] Sam Morro DO Work Phone: [facility] 01-22-2024 15:16-0400 Systolic blood pressure 124 mm[Hg] Sam Morro DO Work Phone: [facility] 12-23-2023 15:41-0400 Body mass index (BMI) [Ratio] 40 kg/m2 Sam Morro DO Work Phone: [facility] 12-23-2023 15:41-0400 Body weight 115.85 kg Sam Morro DO Work Phone: [facility] 12-23-2023 15:41-0400 Diastolic blood pressure 70 mm[Hg] Sam Morro DO Work Phone: [facility] 12-23-2023 15:41-0400 Systolic blood pressure 120 mm[Hg] Sam Morro DO Work Phone: [facility] 06-22-2022 09:21-0400 Body height 167.6 cm NA Sanju PORTILLO Work Phone: [facility] 06-22-2022 09:21-0400 Body weight 112.49 kg NA Sanju PORTILLO Work Phone: [facility] 08-08-2021 14:31-0400 Body temperature 98.24 [degF] Sourav Stinson [facility] 08-08-2021 14:31-0400 Diastolic blood pressure 97 mm[Hg] Sourav Stinson [facility] 08-08-2021 14:31-0400 Heart rate 94 /min Sourav Stinson [facility] 08-08-2021 14:31-0400 Respiratory rate 18 /min Sourav Stinson [facility] 08-08-2021 14:31-0400 SaO2% (BldA) [Mass fraction] 98 % Sourav Stinson [facility] 08-08-2021 14:31-0400 Systolic blood pressure 137 mm[Hg] Sourav Stinson [facility] Encounters Encounter Date Encounter Type Care Provider Facility Start: 06-17-2024 End: 06-17-2024 flow sheet Coby VASQUEZ Work Phone: [facility] Comment on above: 39 weeks gestation o f ; Third trimester Start: 06-17-2024 End: 06-17-2024 ambulatory COBY CIFUENTES Not Available Start: 06-17-2024 End: 06-17-2024 Bamboo flowsheet Coby VASQUEZ Work Phone: [facility] Start: 06-17-2024 End: 06-17-2024 Bamboo flowsheet Coby Cifuentes PA Work Phone: [facility] Start: 06-10-2024 End: 06-10-2024 ambulatory SAM MORRO Not Available Start: 06-10-2024 End: 06-10-2024 flow sheet Sam Morro DO Work Phone: [facility] Comment on above: 38 weeks gestation o f ; Third trimester Start: 06-10-2024 End: 06-10-2024 Bamboo flowsheet Sam Morro DO Work Phone: [facility] Start: 06-10-2024 End: 06-10-2024 Bamboo flowsheet Sam Morro DO Work Phone: [facility] Start: 06-10-2024 End: 06-10-2024 Clinisync Result Encounter Generic External Data Provider [facility] External Department Unsolicited Start: 06-03-2024 End: 06-03-2024 ambulatory SAM MORRO Not Available Start: 06-03-2024 End: 06-03-2024 flow sheet Sam Morro DO Work Phone: [facility] Comment on above: 37 weeks gestation o f ; Third trimester ; Excessive growth affecting management of , antepartum, single or unspecified fetus Start: 06-03-2024 End: 06-03-2024 Bamboo flowsheet Sam Morro DO Work Phone: [facility] Start: 06-03-2024 End: 06-03-2024 Bamboo flowsheet Sam Morro DO Work Phone: [facility] Start: 06-03-2024 End: 06-03-2024 Clinisync Result Encounter Generic External Data Provider [facility] External Department Unsolicited Start: 05-26-2024 End: 05-26-2024 flow sheet Sam Morro DO Work Phone: [facility] Comment on above: Third trimester preg tray; 36 weeks gestation of Start: 05-26-2024 End: 05-26-2024 ambulatory SAM MORRO Not Available Start: 05-26-2024 End: 06-01-2024 Clinisync Result Encounter Generic External Data Provider [facility] External Department Unsolicited Start: 05-26-2024 End: 06-01-2024 Clinisync Result Encounter Generic External Data Provider [facility] External Department Unsolicited Start: 05-11-2024 End: 05-11-2024 ambulatory SAM MORRO [...] Not Available Start: 09-09-2023 End: 09-09-2023 ambulatory COBY CIFUENTES Not Available Start: 08-12-2023 End: 08-12-2023 ambulatory JULIO PULIDO Not Available Start: 08-07-2023 End: 08-07-2023 ambulatory SAM HOOKER Not Available Start: 07-11-2023 End: 07-11-2023 ambulatory MICHAEL HELMS Not Available Start: 06-19-2023 End: 06-19-2023 ambulatory SAM HOOKER Not Available Start: 06-13-2023 End: 06-13-2023 ambulatory SAM HOOKER Not Available Start: 03-05-2023 End: 03-05-2023 ambulatory SAM HOOKER Not Available Start: 08-14-2022 Encounter for genera l adult medical examination without abnormal findings DR MICHAEL HELMS [facility] Start: 08-07-2022 End: 08-08-[address] [...] 08-08-2021 Emergency department patient visit Sourav Stinson [facility] Procedures Date Procedure Procedure Detail Performing Clinician Start: 06-17-2024 Urnls dip stick/tabl et rgnt non-auto w/o micrscp Coby VASQUEZ Work Phone: Start: 06-10-2024 US OB GROWTH Generic Ex ternal Data Provider Start: 06-10-2024 Urnls dip stick/tabl et rgnt non-auto w/o micrscp Sam Hooker DO Work Phone: Start: 06-03-2024 US OB BPP W NON-STRESS Generic External Data Provider Start: 06-03-2024 Urnls dip stick/tabl et rgnt non-auto w/o micrscp Sam Morro DO Work Phone: Start: 05-26-2024 Urnls dip stick/tabl et rgnt non-auto w/o micrscp Sam Morro DO Work Phone: Start: 05-26-2024 ALL MISCELLANEOUS TEST Sam Morro DO Work Phone: Start: 04-29-2024 Urnls dip stick/tabl et rgnt [...] Treatment Date Care Activity Detail Author Start: 06-17-2024 End: 06-17-2024 Patient encounter procedure [facility] Comment on above: Arrived Start: 06-10-2024 End: 06-10-2024 Patient encounter procedure 06/10/2024 3:00 PM EST Routine [facility] [address] [facility] [place] [id number] Sam Hooker, DO [address] [place] [address] [facility] Start: 06-03-2024 End: 06-03-2024 Patient encounter procedure 06/03/2024 3:50 PM EST Routine [facility] [address] [facility] [place] [id number] Sam Hokoer, DO [address] [place] [address] [facility] Start: 05-26-2024 End: 05-26-2024 Patient encounter procedure 05/26/2024 2:40 PM EST Routine [facility] [address] [facility] [place] [phone] Sam Hooker, DO [address] [place] [address] [facility] Start: 05-26-2024 End: 05-26-2025 CULTURE, GROUP B STREP WITH SUSCEPTIBLITY CULTURE, GROUP B STREP WITH SUSCEPTIBLITY Lab Routine Third trimester Expected: 05/26/2024, Expires: 05/26/2025 [facility] Work Phone: Comment on above: Expected: 05/26/2024 , Expires: 05/26/2025 Start: 05-26-2024 End: 05-26-2024 Professional / ancillary services management 05/26/2024 2:00 PM EST Ancillary Procedure [facility] [address] [facility] [place] [phone] [facility] Start: 05-11-2024 End: 05-11-2024 Patient encounter procedure 05/11/2024 3:40 PM EST Routine [facility] [address] [facility] [place] [phone] Sam Hooker, DO [address] [place] [address] [facility] Start: 05-11-2024 End: 05-11-2025 US for US OB follow up transabdominal approach Imaging Routine size inconsistent with dates Expected: 05/11/2024, Expires: 05/11/2025 [facility] Work Phone: Comment on above: Expected: 05/11/2024 , Expires: 05/11/2025 Start: 04-13-2024 End: 04-13-2024 Patient encounter procedure 04/13/2024 3:40 PM EST Routine [facility] [address] [place] [phone] Sam Hooker, DO [address] [place] [address] [facility] Start: 04-06-2024 End: 04-06-2024 Professional / ancillary services management 04/06/2024 2:30 PM EST Ancillary Procedure [facility] [address] [place] [phone] [facility] Start: 03-18-2024 End: 03-18-2024 Patient encounter procedure 03/18/2024 3:30 PM EST Routine [facility] [address] [place] [address] Sam Hooker, DO [address] [place] [address] [facility] Start: 03-18-2024 End: 03-18-2025 US for US OB INCOMPLETE ANATOMY Imaging Routine 26 weeks gestation of Encounter for follow-up ultrasound of anatomy Expected: 03/18/2024 (Approximate), Expires: 03/18/2025 [facility] Work Phone: Comment on above: Expected: 03/18/2024 (Approximate), Expires: 03/18/2025 Start: 02-19-2024 End: 02-19-2024 Patient encounter procedure 02/19/2024 3:10 PM EST [facility] [address] [facility] [place] [phone] Sam Hooker, DO [address] [place], [place] [id number] [facility] OB Start: 02-19-2024 End: 02-18-2025 CBC panel - Blood by Automated count CBC Lab Routine Diabetes mellitus screening Expected: 02/19/2024 (Approximate), Expires: 02/18/2025 [facility] Work Phone: Comment on above: Expected: 02/19/2024 (Approximate), Expires: 02/18/2025 Start: 02-19-2024 End: 02-18-2025 Measurement of glucose 1 hour after glucose challenge for glucose tolerance test Glucose tolerance, 1 hour Lab Routine Diabetes mellitus screening Expected: 02/19/2024 (Approximate), Expires: 02/18/2025 [facility] Comment on above: Expected: 02/19/2024 (Approximate), Expires: 02/18/2025 Start: 01-29-2024 End: 01-29-2024 Professional / ancillary services management 01/29/2024 2:30 PM EDT Ancillary Procedure [facility] [address] [facility] [place] [phone] [facility] Start: 12-23-2023 End: 12-23-2023 Patient encounter procedure 12/23/2023 3:10 PM EDT Routine [facility] [address] [facility] [place] [address] Sam Hooker DO [address] [place] [address] [facility] Start: 12-23-2023 End: 01-22-2024 Alpha fetoprotein, maternal Alpha fetoprotein, maternal Lab Routine 14 weeks gestation of Expected: 12/23/2023 (Approximate), Expires: 01/22/2024 [facility] Comment on above: Expected: 12/23/2023 (Approximate), Expires: 01/22/2024 Start: 12-23-2023 End: 12-22-2024 US for US OB ANATOMY SINGLE W US OB CERVICAL LENGTH Imaging Routine Screening, , for anatomic survey Expected: 12/23/2023 (Approximate), Expires: 12/22/2024 [facility] Comment on above: Expected: 12/23/2023 (Approximate), Expires: 12/22/2024 Start: 12-08-2023 Influenza vaccination Influenza Vacc ine (#1) [facility] Start: 04-08-2022 DEPRESSION ASSESSMENT DEPRESSION ASS ESSMENT [facility] Start: 12-07-2021 Influenza vaccination INFLUENZA (#1) [facility] Start: 04-18-2021 COVID-19 VACCINE (2 - Booster for Vinny series) COVID-19 VACCINE (2 - Booster for Vinny series) [facility] Start: 02-03-2017 PAP TESTING PAP TESTING [facility] Start: 02-03-2015 Urine microalbumin profile DTAP,TDAP,TD (1 - Tdap) [facility] Start: 02-03-2014 HEPATITIS C SCREENING HEPATITIS C SC HAM [facility] Start: 02-03-2014 HIV SCREENING HIV SCREENING [facility] Start: 02-03-2010 PEDS TO ADULT TRANSITION ANNUAL ASSESSMENT PEDS TO ADULT TRANSITION ANNUAL ASSESSMENT [facility] Start: 2008 PEDS TO ADULT TRANSITION INITIAL DISCUSSION PEDS TO ADULT TRANSITION INITIAL DISCUSSION [facility] Start: 02-03-2007 HPV VACCINE (1 - 2-d ose series) HPV VACCINE (1 - 2-dose series) [facility] Start: 1996 HEPATITIS B (1 of 3 - 3-dose series) HEPATITIS B (1 of 3 - 3-dose series) [facility] CHLAMYDIA TRACHOMATI S (GENITO/STI) CHLAMYDIA TRACHOMATIS (GENITO/STI) Lab Routine Exposure to STD Ordered: 12/23/2023 [facility] Comment on above: Ordered: 12/23/2023 Neisseria gonorrhoea e DNA [Presence] in Unspecified specimen by LUCILA with probe detection Neisseria gonorrhea DNA probe, direct Lab Routine Exposure to STD Ordered: 12/23/2023 [facility] Comment on above: Ordered: 12/23/2023 SURESWAB(R) ADVANCED VAGINITIS PLUS, TMA SURESWAB(R) ADVANCED VAGINITIS PLUS, TMA Pathology and Cytology Routine Vaginal discharge Ordered: 12/23/2023 [facility] Work Phone: Comment on above: Ordered: 12/23/2023 End: 10-13-2024 US for US OB follow up transabdominal approach Imaging Routine Excessive growth affecting management of , antepartum, single or unspecified fetus 4 for 4 Occurrences starting 04/15/2024 until 10/13/2024 [facility] Work Phone: Comment on above: 4 for 4 Occurrences starting 04/15/2024 until 10/13/2024 Immunizations Immunization Date Immunization Notes Care Provider Kenzie young 02-07-2020 influenza virus vacc ine, unspecified formulation Generic Provider [facility] Payers Date Payer Category Payer Private Health Insurance [id number] 2021 Private Health Insurance [id number] 1996 Unknown [id number] 2.16.84 0.1.689529.3.579.2.593 1996 Unknown [id number] 2.16.84 0.1.048573.3.579.2.593 1996 Unknown [id number] 2.16.84 0.1.262541.3.579.2.593 1996 Unknown [id number] 2.16.84 0.1.834958.3.579.2.593 1996 Unknown [id number] 2.16.84 0.1.900210.3.579.2.593 1996 Unknown [id number] 2.16.84 0.1.167067.3.579.2.1259 1996 Unknown [id number] 2.16.84 0.1.218894.3.579.2.1259 1996 Unknown [id number] 2.16.84 0.1.221044.3.579.2.1259 1996 Unknown [id number] 2.16.84 0.1.106432.3.579.2.1259 1996 Unknown [id number] 2.16.84 0.1.258825.3.579.2.1259 1996 Unknown [id number] 2.16.84 0.1.179798.3.579.2.1259 1996 Unknown [id number] 2.16.84 0.1.865841.3.579.2.1259 1996 Unknown [id number] 2.16.840 .1.201300.3.579.2.1259 1996 Unknown [id number] 2.16.84 0.1.054169.3.579.2.1259 1996 Unknown [id number] 2.16.84 0.1.635486.3.579.2.1259 1996 Unknown [id number] 2.16.84 0.1.440638.3.579.2.1259 1996 Unknown [id number] 2.16.84 0.1.728537.3.579.2.1259 1996 Unknown [id number] 2.16.84 0.1.449927.3.579.2.1259 1996 Unknown [id number] 2.16.84 0.1.160219.3.579.2.1259 1996 Unknown [id number] 2.16.84 0.1.643937.3.579.2.1259 1996 Unknown [id number] 2.16.84 0.1.511426.3.579.2.9 1996 Unknown [id number] 2.16.84 0.1.674943.3.579.2.9 1996 Unknown [id number] 2.16.84 0.1.215516.3.579.2.9 1996 Unknown [id number] 2.16.84 0.1.835609.3.579.2.1259 1996 Unknown [id number] 2.16.84 0.1.046297.3.579.2.9 1996 Unknown [id number] 2.16.84 0.1.285156.3.579.2.1259 1959 Private Health Insurance [id number] 1959 Unknown [id number] Social History Date Type Detail Facility Start: 10-11-2018 End: 07-11-2023 Tobacco smoking status Never smoked tobacco (finding) [facility] Start: 07-11-2023 Sex Assigned At Female F [facility] Start: 06-22-2022 End: 07-11-2023 Tobacco use and exposure Smokeless tobacco non-user [facility] Start: 1996 Sex Assigned At Not on file [facility] Start: 12-11-2023 End: 12-23-2023 Alcoholic beverage intake Lifetime non-drinker (finding) [facility] Start: 07-11-2023 History of Social function [facility] Start: 09-27-2023 [facility] Start: 1995 Sex assigned at Female [facility] Start: 12-11-2023 Gender identity Identifies as female gender (finding) [facility] Start: 01-22-2024 End: 06-17-2024 Alcoholic beverage intake Ex-drinker (finding) [facility] Start: 01-22-2024 Alcohol Comment 1-2 a month socially [facility] Goals Date Patient Goal Desired Activity /State Personal health goal Clinical Notes 08-08-2021 to 06-17-2024 PEDRO Hahn - 06/17/2024 3:30 PM Ramila Gilliland, JESSICA - 06/10/2024 3:00 PM Deniz Gilliland, JESSICA - 06/03/2024 3:50 PM Deniz Gilliland, JESSICA - 05/26/2024 2:40 PM EST Note Date & Type Note Facility 06-17-2024 History of Presen t illness Narrative Reason [...] reviewed. Vitals: Estimated body mass index is 42.44 kg/m as calculated from the following: Height as of 08/12/23: 5' 7 . Weight as of this encounter: 271 lb. BP: (!) 160/100 Patient's last menstrual period was 06/30/2023. ASSESSMENT & PLAN ICD-10-CM 1. 39 weeks gestation of Z3A.39 POCT urinalysis dipstick manually resulted 2. Third trimester Z34.93 POCT urinalysis dipstick manually resulted Patient presents today for weekly visit. Patient blood pressure elevated today at 160/100. Patient denies headaches. States she is having increased shortness of breath at times. Patient is scheduled for induction on 06/19/2024. Patient will be sent today for elevated BP and further evaluation with nst and bpp. Documented by PEDRO Hahn on behalf of: PEDRO Hahn documented in this encounter [facility] 06-10-2024 History of Presen t illness Narrative Reason [...] Constitutional: Appearance: Normal appearance. She is well-developed. Genitourinary: Vulva normal. Cardiovascular: Rate and Rhythm: Normal rate and [...] nursing note reviewed. Exam conducted with a bus monitor present. Vitals: Estimated body mass index is 41.99 kg/m as calculated from the following: Height as of 08/12/23: 5' 7 . Weight as of this encounter: 268 lb 1.9 oz. BP: 130/80 Patient's last menstrual period was 06/30/2023. ASSESSMENT & PLAN ICD-10-CM 1. 38 weeks gestation of Z3A.38 POCT urinalysis dipstick manually resulted 2. Third trimester Z34.93 POCT urinalysis dipstick manually resulted Return OB: Patient presents today for a routine obstetrics appointment. Patient is currently 38w5d . Patient states she is doing well but has complaints of being tired due to current . Patient has verbalizes frequent movement. labor precautions was discussed/given and patient was instructed to perform kick counts three times a day. Pt to be induced Saturday06/19/24. Orders Placed This Encounter Procedures POCT urinalysis dipstick manually resulted Follow Up: Patient is to return to office in 1 week for routine OB appointment. Documented by Rosi Gilliland LPN on behalf of: Sam Hooker DO documented in this encounter [facility] 06-03-2024 History of Presen t illness Narrative Reason [...] Noted Herpes labialis 04/15/2023 Generalized anxiety disorder ([facility]/HCC) 07/11/2023 Dyslipidemia (CMS/HCC) 07/11/2023 Metabolic syndrome 07/11/2023 PCOS (polycystic ovarian syndrome) 07/11/2023 Vitamin D deficiency 07/11/2023 Morbid obesity due to excess calories ([facility]/HCC) 07/11/2023 Pharyngitis 07/11/2023 Encounter for follow-up ultrasound [...] sore Dyslipidemia (CMS/HCC) SONYA (generalized anxiety disorder) ([facility]/HCC) History of migraine headaches Kidney stones Migraines ([facility]) Obesity PCOS (polycystic ovarian syndrome) Vitamin [...] Constitutional: Appearance: Normal appearance. She is well-developed. Genitourinary: Vulva normal. Cardiovascular: Rate and Rhythm: Normal rate and [...] nursing note reviewed. Exam conducted with a bus monitor present. Vitals: Estimated body mass index is 42.29 kg/m as calculated from the following: Height as of 08/12/23: 5' 7 . Weight as of this encounter: 270 lb. BP: 138/80 Patient's last menstrual period was 06/30/2023. ASSESSMENT & PLAN ICD-10-CM 1. 37 weeks gestation of Z3A.37 POCT urinalysis dipstick manually resulted 2. Third trimester Z34.93 POCT urinalysis dipstick manually resulted Return OB: Patient presents today for a routine obstetrics appointment. Patient is currently 37w5d . Patient states she is doing well but has complaints of being tired due to current . Patient has verbalizes frequent movement. labor precautions was discussed/given and patient was instructed to perform kick counts three times a day. Orders Placed This Encounter Procedures POCT urinalysis dipstick manually resulted Follow Up: Patient is to return to office in 1 week for routine OB appointment. Documented by Rosi Gilliland LPN on behalf of: Sam Hooker DO documented in this encounter [facility] 05-26-2024 History of Presen t illness Narrative Reason [...] Noted Herpes labialis 04/15/2023 Generalized anxiety disorder ([facility]) 07/11/2023 Dyslipidemia (CMS/[facility]) 07/11/2023 Metabolic syndrome 07/11/2023 PCOS (polycystic ovarian syndrome) 07/11/2023 Vitamin D deficiency 07/11/2023 Morbid obesity due to excess calories ([facility]/HCC) 07/11/2023 Pharyngitis 07/11/2023 Encounter for follow-up ultrasound of anatomy 03/18/2024 Resolved Ambulatory Problems Diagnosis Date Noted No Resolved Ambulatory Problems Past Medical History: Diagnosis Date Back pain Cold sore SONYA (generalized anxiety disorder) ([facility]/HCC) History of migraine headaches Kidney stones Migraines (CMS/HCC) Obesity HISTORY PAST MEDICAL HISTORY SOCIAL HISTORY Past Medical History: Diagnosis Date Back pain Cold sore Dyslipidemia ([facility]/HCC) SONYA (generalized anxiety disorder) ([facility]) History of migraine headaches Kidney stones Migraines ([facility]/HCC) Obesity PCOS (polycystic ovarian syndrome) Vitamin D [...] Constitutional: Appearance: Normal appearance. She is well-developed. Genitourinary: Vulva normal. Cardiovascular: Rate and Rhythm: Normal rate and [...] nursing note reviewed. Exam conducted with a bus monitor present. Vitals: Estimated body mass index is 41.72 kg/m as calculated from the following: Height as of 08/12/23: 5' 7 . Weight as of this encounter: 266 lb 6.4 oz. BP: 124/82 Patient's last menstrual period was 06/30/2023. ASSESSMENT & PLAN ICD-10-CM 1. Third trimester Z34.93 CULTURE, GROUP B STREP WITH SUSCEPTIBLITY CULTURE, GROUP B STREP WITH SUSCEPTIBLITY POCT urinalysis dipstick manually resulted 2. 36 weeks gestation of Z3A.36 Patient is doing well but has complaints of being tired and having maternal discomfort due to . Patient verbalized frequent movement and was instructed to perform kick counts three times per day. labor precautions were given, LARC consent was signed/declined, and GBS was obtained. Cervical check was performed and patient is 1cm dilated. Orders Placed This Encounter Procedures CULTURE, GROUP B STREP WITH SUSCEPTIBLITY POCT urinalysis dipstick manually resulted Follow Up: Patient is to return to office in 1 week for routine OB appointment Documented by Rosi Gilliland LPN on behalf of: Sam Hooker DO documented in this encounter [facility] 05-11-2024 History of Presen t illness Narrative [...] Noted Herpes labialis 04/15/2023 Generalized anxiety disorder ([facility]/HCC) 07/11/2023 Dyslipidemia (CMS/HCC) 07/11/2023 Metabolic syndrome 07/11/2023 [...] Sam Hooker DO documented in this encounter [facility] 04-29-2024 History of Presen t illness Narrative [...] Noted Herpes labialis 04/15/2023 Generalized anxiety disorder ([facility]/HCC) 07/11/2023 Dyslipidemia ([facility]) 07/11/2023 Metabolic syndrome 07/11/2023 PCOS (polycystic ovarian syndrome) 07/11/2023 Vitamin D deficiency 07/11/2023 Morbid obesity due to excess calories ([facility]) 07/11/2023 Pharyngitis 07/11/2023 Encounter for follow-up ultrasound [...] sore Dyslipidemia (CMS/HCC) SONYA (generalized anxiety disorder) (CMS/[facility]) History of migraine headaches Kidney stones [...] nursing note reviewed. Exam conducted with a bus monitor present. Vitals: Estimated body mass index is [...] Sam Hooker DO documented in this encounter [facility] 04-15-2024 History of Presen t illness Narrative [...] nursing note reviewed. Exam conducted with a bus monitor present. Vitals: Estimated body mass index is [...] Sam Hooker DO documented in this encounter [facility] 03-18-2024 History of Presen t illness Narrative [...] nursing note reviewed. Exam conducted with a bus monitor present. Vitals: Estimated body mass index is [...] Sam Hooker DO documented in this encounter [facility] 02-19-2024 History of Presen t illness Narrative [...] Noted Herpes labialis 04/15/2023 Generalized anxiety disorder ([facility]/HCC) 07/11/2023 Dyslipidemia ([facility]) 07/11/2023 Metabolic syndrome 07/11/2023 PCOS (polycystic ovarian syndrome) 07/11/2023 Vitamin D deficiency 07/11/2023 Morbid obesity due to excess calories ([facility]) 07/11/2023 Pharyngitis 07/11/2023 Resolved Ambulatory Problems Diagnosis Date Noted No Resolved Ambulatory Problems Past Medical History: Diagnosis Date Back pain Cold sore SONYA (generalized anxiety disorder) ([facility]) History of migraine headaches Kidney stones Migraines ([facility]) Obesity HISTORY PAST MEDICAL HISTORY SOCIAL HISTORY Past Medical History: Diagnosis Date Back pain Cold sore Dyslipidemia ([facility]) SONYA (generalized anxiety disorder) ([facility]) History of migraine headaches Kidney stones Migraines ([facility]) Obesity PCOS (polycystic ovarian syndrome) Vitamin [...] nursing note reviewed. Exam conducted with a bus monitor present. Vitals: Estimated body mass index is [...] Sam Hooker DO documented in this encounter [facility] 01-22-2024 History of Presen t illness Narrative [...] Noted Herpes labialis 04/15/2023 Generalized anxiety disorder ([facility]/HCC) 07/11/2023 Dyslipidemia ([facility]/HCC) 07/11/2023 Metabolic syndrome 07/11/2023 PCOS (polycystic ovarian syndrome) 07/11/2023 Vitamin D deficiency 07/11/2023 Morbid obesity due to excess calories ([facility]) 07/11/2023 Pharyngitis 07/11/2023 Resolved Ambulatory Problems Diagnosis Date Noted No Resolved Ambulatory Problems Past Medical History: Diagnosis Date Back pain Cold sore SONYA (generalized anxiety disorder) ([facility]) History of migraine headaches Kidney stones Migraines ([facility]) Obesity HISTORY PAST MEDICAL HISTORY SOCIAL HISTORY Past Medical History: Diagnosis Date Back pain Cold sore Dyslipidemia ([facility]) SONYA (generalized anxiety disorder) ([facility]) History of migraine headaches Kidney stones Migraines ([facility]) Obesity PCOS (polycystic ovarian syndrome) Vitamin [...] nursing note reviewed. Exam conducted with a bus monitor present. Vitals: Estimated body mass index is [...] Sam Hooker DO documented in this encounter [facility] 12-23-2023 History of Presen t illness Narrative [...] 07/11/2023 Morbid obesity due to excess calories ([facility]/HCC) 07/11/2023 Pharyngitis 07/11/2023 Resolved Ambulatory Problems Diagnosis Date Noted No Resolved Ambulatory Problems Past Medical History: Diagnosis Date Back pain Cold sore SONYA (generalized anxiety disorder) (CMS/HCC) History of migraine headaches Kidney stones Migraines (CMS/HCC) Obesity HISTORY PAST MEDICAL HISTORY SOCIAL HISTORY Past Medical History: Diagnosis Date Back pain Cold sore Dyslipidemia (CMS/HCC) SONYA (generalized anxiety disorder) ([facility]) History of migraine headaches Kidney stones [...] nursing note reviewed. Exam conducted with a bus monitor present. Vitals: Estimated body mass index is [...] Sam Hooker DO documented in this encounter [facility] 06-22-2022 History of Presen t illness Narrative OPENED IN ERROR documented in this encounter [facility] 08-23-2021 Note PROCEDURE: XR FINGER MIN 2 [...] authenticated by: CARMEN SOLORIO Date: 2021-08-23 14:56 [facility] 08-08-2021 Hospital Discharg e instructions Patient Education 08/08/2021 15:44:15 Animal Bite, Adult, [id number] Animal Bite, Adult Animal bite wounds can [...] cannot use soap and water, 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 ?Change your bandage as told by your [...] a bad smell. Medicines Take or apply [id number] and prescription medicines only as told by [...] 03/25/2006 Document Revised: 03/20/2018 Document Reviewed: 10/03/2017 [employer] Patient Education 2020 [employer] Follow Up Care 08/08/2021 14:30:18 With:MICHAEL HELMS Address: [facility] [place] [id number] Business (1) When:08/11/2021 15:01:11 [facility] Evaluation + Plan note No data available for this section [facility] Evaluation note Diagnosis OPENED IN ERROR- Primary To allow closing an encounter opened in error (used in SmartSet) [facility] Diagnosis Pharyngitis, unspecified etiology- Primary Second trimester state, incidental 18 weeks gestation of documented in this encounter [facility]* Diagnosis Pharyngitis, unspecified etiology- Primary 22 weeks gestation of Second trimester state, incidental Diabetes mellitus screening Screening for diabetes mellitus documented in this encounter [facility]* Diagnosis 14 weeks gestation of Exposure to STD Vaginal discharge Leukorrhea, not specified as infective Screening, , for anatomic survey Encounter for anatomic survey UTI symptoms documented in this encounter [facility]* Diagnosis Pharyngitis, unspecified etiology- Primary 26 weeks gestation of Encounter for follow-up ultrasound of anatomy documented in this encounter [facility]* Diagnosis Pharyngitis, unspecified etiology- Primary 30 weeks gestation of Third trimester state, incidental Excessive growth affecting management of , antepartum, single or unspecified fetus documented in this encounter [facility] HealthcareEvaluation note* Diagnosis Pharyngitis, unspecified etiology- Primary Third trimester state, incidental 32 weeks gestation of documented in this encounter [facility]* Diagnosis Pharyngitis, unspecified etiology- Primary Third trimester state, incidental 34 weeks gestation of size inconsistent with dates documented in this encounter [facility]* Diagnosis Pharyngitis, unspecified etiology- Primary Third trimester state, incidental 36 weeks gestation of documented in this encounter [facility]* Diagnosis Pharyngitis, unspecified etiology- Primary 37 weeks gestation of Third trimester state, incidental Excessive growth affecting management of , antepartum, single or unspecified fetus documented in this encounter [facility]* Diagnosis Pharyngitis, unspecified etiology- Primary 38 weeks gestation of Third trimester state, incidental documented in this encounter [facility]* Diagnosis Pharyngitis, unspecified etiology- Primary 39 weeks gestation of Third trimester state, incidental documented in this encounter [facility] Summary [...] and content) DATE CREATED AUTHOR 08/12/2021 [facility] DATE CREATED AUTHOR AUTHOR'S ORGANIZ ATION 09/12/2021 [facility] dical Specialist DATE CREATED AUTHOR AUTHOR'S ORGANIZ ATION 08/15/2022 [facility] DATE CREATED AUTHOR AUTHOR'S ORGANIZ ATION 11/26/2023 [facility] dical Specialists EPIC DATE CREATED AUTHOR AUTHOR'S ORGANIZ ATION 06/20/2024 [facility] dical Specialists EPIC Source Comments (unrecognize d section and content) In the event this informatio n is protected by the Federal Confidentiality of Alcohol and Drug Abuse Patient Records regulations: The Federal rules restrict any use of the information to criminally investigate or prosecute any alcohol or drug abuse patient.[facility] Reason for Visit (unrecogniz ed section and content) Reason Comments Opened In Error Reason Comments Routine Visit Care Teams (unrecognized sec tion and content) Sport Shoe Spike Assembler Relationship Specialty Start Date End Date Michael Helms [address] [place] [address] PCP - General Family Medicine 06/08/22 Sport Shoe Spike Assembler Relationship Specialty Start Date End Date Michael Helms MD [address] [place] [address] PCP - General Family Medicine 07/11/23 Sport Shoe Spike Assembler Relationship Specialty Start Date End Date Michael Helms MD [address] [place] [address] PCP - General Family Medicine 07/11/23 Sport Shoe Spike Assembler Relationship Specialty Start Date End Date Michael Helms MD [address] [place] [address] PCP - General Family Medicine 07/11/23 Sport Shoe Spike Assembler Relationship Specialty Start Date End Date Michael Helms MD [address] [place] [address] PCP - General Family Medicine 07/11/23 Sport Shoe Spike Assembler Relationship Specialty Start Date End Date Michael Helms MD [address] [place] [address] PCP - General Family Medicine 07/11/23 Sport Shoe Spike Assembler Relationship Specialty Start Date End Date Michael Helms MD [address] [place] [address] PCP - General Family Medicine 07/11/23 Sport Shoe Spike Assembler Relationship Specialty Start Date End Date Michael Helms MD [address] [place] [address] PCP - General Family Medicine 07/11/23 Sport Shoe Spike Assembler Relationship Specialty Start Date End Date Michael Helms MD [address] [place] [address] PCP - General Family Medicine 07/11/23 Sport Shoe Spike Assembler Relationship Specialty Start Date End Date Michael Helms MD [address] [place] [address] PCP - General Family Medicine 07/11/23 Sport Shoe Spike Assembler Relationship Specialty Start Date End Date Michael Helms MD [address] [place] [address] PCP - General Family Medicine 07/11/23 Sport Shoe Spike Assembler Relationship Specialty Start Date End Date Michael Helms MD [address] [place] [address] PCP - General Family Medicine 07/11/23 Sport Shoe Spike Assembler Relationship Specialty Start Date End Date Michael Helms MD [address] [place] [address] PCP - General Family Medicine 07/11/23 Sport Shoe Spike Assembler Relationship Specialty Start Date End Date Michael Helms MD [address] [place] [address] PCP - General Family Medicine 07/11/23 Sport Shoe Spike Assembler Relationship Specialty Start Date End Date Michael Helms MD [address] [place] [address] PCP - General Family Medicine 07/11/23 FOR [...] BE BASED ON THE PRIMARY CLINICAL RECORDS. [employer] [facility]. provides no warranty or guarantee of the accuracy or completeness of information in this document.
[2024-06-24 14:35] VITALS: BP 134/89; PULSE 74; TEMP 36.8; O2SAT 98
--- NOTE | 2024-06-24 15:34 | PC.NURSE ---
1435-Liz arrives with and . Requests only a follow up visit for her, since was just seen at [facility] and is sleeping. Assessment completed as documented, reviewed post- warning signs with both her and significant other, verbalizes understanding. Much discussion on pumping, storage of breast milk, latching and feedings, verbalizes understanding. Denies further questions, needs or concerns. 1510-Discharged home in stable condition with and .
== END 2024-06-24 07:54 | disposition home or self-care (01) ==
LOC: FBCO 07:55
PROVIDERS: PCP Family Medicine; Visit Provider Obstetrics & Gynecology
DX: Z39.2 Encounter for routine postpartum follow-up (principal)

== ENCOUNTER 2024-08-07 12:13 | Outpatient (OUT) | payer OTHER, SELFPAY ==
[2024-08-07 12:46] LABS: Basophils Absolute Auto 0.1 10^3/uL (0.0-0.1); Basophils Percent Auto 0.6 % (0.2-2.0); Eosinophils Absolute Auto 0.2 10^3/uL (0.0-0.7); Hematocrit 38.5 % (36.0-48.0); Hemoglobin 12.4 g/dL (12.0-16.0); Immature Granulocytes Abs Auto 0.02 10^3/uL (0.00-0.03); Immature Granulocytes Pct Auto 0.2 % (0.0-0.5); Lymphocytes Absolute Auto 1.8 10^3/uL (1.2-3.8); Lymphocytes Percent Auto 20.6 % (20.5-60.0); Mean Corpuscular HGB Conc 32.2 g/dL (29.9-35.2); Mean Corpuscular Hemoglobin 28.3 pg (26.7-34.0); Mean Corpuscular Volume 87.9 fL (81.0-99.0); Mean Platelet Volume 10.5 fL (9.5-13.5); Monocytes Absolute Auto 0.6 10^3/uL (0.3-0.8); Monocytes Percent Auto 7.2 % (1.7-12.0); Neutrophils Absolute Auto 5.9 10^3/uL (1.4-6.5); Neutrophils Percent Auto 69.4 % (43.0-75.0); Platelet Count 232 10^3/uL (150-450); Red Blood Count 4.38 10^6/uL (4.20-5.40); Red Cell Distribution Width 14.6 % (11.0-15.0); White Blood Count 8.5 10^3/uL (4.0-11.0)
[2024-08-07 13:14] LABS: Thyroid Stimulating Hormone 0.086 uIU/mL (0.358-3.740)
[2024-08-07 14:00] LABS: Free T4 1.23 ng/dL (0.76-1.46)
== END 2024-08-07 12:14 | disposition home or self-care (01) ==
LOC: LAB 12:13
PROVIDERS: PCP Family Medicine; Visit Provider Obstetrics & Gynecology
DX: Z39.2 Encounter for routine postpartum follow-up (principal)
CPT/HCPCS: 36415; 84439; 84443; 85025

== ENCOUNTER 2024-09-30 10:04 | Outpatient (OUT) | payer OTHER, SELFPAY ==
--- OUTSIDE RECORDS SUMMARY | 2024-09-22 14:45 | XMS_ITS | Encounter Summary ---
Author Organization [facility] Address [address] [place] [address] Care Team Providers Care Talent Development Specialist Name Role Phone Michael Guerra MD Primary Care Provider [phone] Reason for Referral * Consultation (Routine) - Authorized Specialty Diagnoses / Procedures Referred By Contac t Referred To Contact General Surgery Diagnoses Scalp cyst Procedures PA OFFICE/OUTPATIENT NEW HIGH MDM 60 MINUTES Michael Guerra MD [address] [place] [address] Phone: tel: fax: [place] [address] [place] [address] Phone: tel: fax: Referral ID Status Reason Start Date Expiration Date Visits Requested Visits Authorized [id number] Authorized Specialty Services Required 09/22/2024 03/21/2025 1 1 Reason for Visit * Reason Comments Annual Exam wellness Follow-up Cyst on headSpot nex t to eye Encounter Details Date Type Department Care Team (Late st Contact Info) Description 09/22/2024 2:45 PM EDT Office Visit [facility] [address] [place] [address] Michael Guerra MD [address] [place] [address] Annual physical exam (Primary Dx); Dyslipidemia ; Scalp cyst; Class 2 severe obesity due to excess calories with serious comorbidity and body mass index (BMI) of 37.0 to 37.9 in adult ([facility]) Social History Tobacco Use Types Packs/Day Years Used Date Smoking Tobacco: Never Smokeless Tobacco: Never Alcohol Use Standard Drinks/Week Comments Not Currently 0 (1 standard drink = 0.6 oz pur e alcohol) 1-2 a month socially Comments No Sex and Gender Information Value Date Recorded Sex Assigned at Female 12/11/2023 11:22 AM EDT Legal Sex Female 7:47 PM EDT Gender Identity Female 12/11/2023 11:22 AM EDT Sexual Orientation Not on file documented as of this encounter Last Filed Vital Signs Vital Sign Reading Time Taken Comments Blood Pressure 148/74 09/22/2024 2:53 PM EDT Pulse 92 09/22/2024 2:53 PM EDT Temperature 36.6 C (97.8 F) 09/22/2024 2:53 PM EDT Respiratory Rate 20 09/22/2024 2:53 PM EDT Oxygen Saturation 98% 09/22/2024 2:53 PM EDT Inhaled Oxygen Concentration - - Weight 109 kg (241 lb) 09/22/2024 2:53 PM EDT Height 170.2 cm (5' 7 ) 09/22/2024 2:53 PM EDT Body Mass Index 37.75 09/22/2024 2:53 PM EDT documented in this encounter Progress Notes * Michael Guerra MD - 09/22/2024 3:26 PM EDTAssociated Problem(s): Scalp cyst Bumps appear to be benign cysts but tender. Refer to surgeon for excision. * Michael Guerra MD - 09/22/2024 3:25 PM EDTAssociated Problem(s): Annual physical exam Reviewed labs. Discussed proper diet and regular aerobic exercise. Need aerobic exercise 5-6 days aweek for 30 minutes at a time. Smaller portions and limit total calories. Colonoscopy after age 45.Tetanus every 10 years. Advised not to smoke. * Michale Guerra MD - 09/22/2024 3:25 PM EDTAssociated Problem(s): Class 2 severe obesity due to excess calories with serious comorbidity and body mass index (BMI) of 37.0 to 37.9 in adult ([facility]) Weight loss indicated. * Michael Guerra MD - 09/22/2024 2:45 PM EDT Images from the original note were not included. Subjective Patient ID: Liz Bermeo is a 29 y.o. female who presents for Annual Exam (wellness) and Follow-up (Cyst on head/Spot next to eye). Presents for annual wellness visit. Patient doing well today. Recent and delivered in June. Back to prepregnancy weight. Tries to stay active and recently returned to work. Breast feeding and doing well. OB recently checked labs. C/o bumps on top head for several months. Previously had cysts removed. Painful bump on top head near vertex of scalp. Smaller, nontender lump on mid frontal region. Review of Systems Respiratory: Negative for cough, shortness of breath and wheezing. Cardiovascular: Negative for chest pain and palpitations. Gastrointestinal: Negative for abdominal pain, diarrhea, nausea and vomiting. Genitourinary: Negative for dysuria. Objective Physical Exam Constitutional: General: She is not in acute distress. Appearance: Normal appearance. HENT: Head: Normocephalic. Right Ear: Tympanic membrane normal. Left Ear: Tympanic membrane normal. Eyes: Extraocular Movements: Extraocular movements intact. Pupils: Pupils are equal, round, and reactive to light. Cardiovascular: Rate and Rhythm: Normal rate and regular rhythm. Heart sounds: No murmur heard. No friction rub. No gallop. Pulmonary: Effort: Pulmonary effort is normal. Breath sounds: Normal breath sounds. No wheezing, rhonchi or rales. Abdominal: General: Bowel sounds are normal. There is no distension. Palpations: Abdomen is soft. Tenderness: There is no abdominal tenderness. There is no guarding or rebound. Musculoskeletal: General: No swelling or tenderness. Cervical back: Neck supple. Right lower leg: No edema. Left lower leg: No edema. Skin: Findings: No erythema or rash. Comments: Small, 6-8 mm raised bump on vertex of scalp tender with palpation. 4-6 mm raised bump on mid frontal region of scalp. Neurological: General: No focal deficit present. Mental Status: She is alert and oriented to person, place, and time. Cranial Nerves: No cranial nerve deficit. Motor: No weakness. Gait: Gait normal. Assessment/Plan Problem List Items Addressed This Visit Dyslipidemia Class 2 severe obesity due to excess calories with serious comorbidity and body mass index (BMI) of37.0 to 37.9 in adult ([facility]) Weight loss indicated. Annual physical exam - Primary Reviewed labs. Discussed proper diet and regular aerobic exercise. Need aerobic exercise 5-6 days aweek for 30 minutes at a time. Smaller portions and limit total calories. Colonoscopy after age 45.Tetanus every 10 years. Advised not to smoke. Scalp cyst Bumps appear to be benign cysts but tender. Refer to surgeon for excision. Relevant Orders Ambulatory referral to General Surgery documented in this encounter Plan of Treatment Upcoming Encounters Date Type Department Care Team (Late st Contact Info) Description 11/04/2024 2:45 PM EDT Office Visit [facility] [address] [place] [phone] Ana Mukherjee MD [address] [place] [address] 11/11/2024 3:20 PM EDT Office Visit [facility] OB [address] [facility] [place] [address] Sam Hooker DO [address] [place] [address] 09/23/2025 2:45 PM EDT Office Visit [facility] FM [address] [place] [address] Michael Guerra MD [address] [place] [address] Scheduled Referrals Name Type Priority Associated Diagnoses Order Schedule Ambulatory referral to General Surgery Outpatient Referral Routine Scalp cyst Expected: 09/22/2024 (Approximate), Expires: 03/24/2025 documented as of this encounter Goals Goal Patient Goal Type Associated Problems Recent Progress Patient-Stated? Author Reminders Care Plan OB Reminders No Open Scheduling, Background documented as of this encounter Visit Diagnoses Diagnosis Annual physical exam- Primary Routine general medical examination at a health care facility Dyslipidemia Other and unspecified hyperlipidemia Scalp cyst Sebaceous cyst Class 2 severe obesity due to excess calories with serious comorbidity and body mass index (BMI) of 37.0 to 37.9 in adult ([facility]) documented in this encounter Additional Health Concerns Active Problems Noted Date Diagnosed Date OB Reminders 02/16/2024 documented as of this encounter Care Teams Talent Development Specialist Relationship Specialty Start Date End Date Michael Guerra MD [address] [place] [address] PCP - General Family Medicine 07/11/23 documented as of this encounter
--- OUTSIDE RECORDS SUMMARY | 2024-09-30 10:08 | XMS_ITS | Encounter Summary ---
Author Organization [facility] Address [address] [place] [address] Care Team Providers Care New Car Make Ready Worker Name Role Phone Michael Guerra MD Primary Care Provider [phone] Encounter Details Date Type Department Care Team (Late st Contact Info) Description 10/25/2023 Clinisync Result Encounter [facility] External Department Unsolicited Provider, Generic External Data Social History Tobacco Use Types Packs/Day Years Used Date Smoking Tobacco: Never Smokeless Tobacco: Never Alcohol Use Standard Drinks/Week Comments Never 0 (1 standard drink = 0.6 oz pur e alcohol) Comments Unknown Sex and Gender Information Value Date Recorded Sex Assigned at Female 12/11/2023 11:22 AM EDT Legal Sex Female 7:47 PM EDT Gender Identity Female 12/11/2023 11:22 AM EDT Sexual Orientation Not on file documented as of this encounter Plan of Treatment Upcoming Encounters Date Type Department Care Team (Late st Contact Info) Description 11/04/2024 2:45 PM EDT Office Visit [facility] [address] [place] [phone] Ana Mukherjee MD [address] [place] [address] 11/11/2024 3:20 PM EDT Office Visit [facility] OB [address] [facility] [place] [address] Celeste Jacinto DO [address] [place] [address] 09/23/2025 2:45 PM EDT Office Visit [facility] [address] [place] [address] Michael Guerra MD [address] [place] [address] documented as of this encounter Procedures Procedure Name Priority Date/Time Associated Diagnosis Comments US OB TRANSVAGINAL 10/25/2023 10 :29 AM EDT documented in this encounter Results * US OB TRANSVAGINAL (10/25/2023 10:29 AM EDT) Anatomical Region Laterality Modality Other 10/25/2023 10:2 9 AM EDT Narrative 10/25/2023 10:32 [place] [address] Ultrasound Report Signed Patient: BROOKLYNN GTZ MR#: [id number] : 1995 Acct:[id number] Age/Sex: 28 / F ADM Date: 10/25/23 Loc: [facility] Attending Dr: Celeste Jacinto D.O. Ordering Physician: Celeste Jacinto D.O. Date of Service: 10/25/23 Procedure(s): US OB transvaginal Accession Number(s): [id number] cc: Celeste Jacinto D.O.; Michael Guerra M.D. The [address] [address] Patient Name: BROOKLYNN GTZ MRN: [id number] date: 1995 Sex: F Assigned Patient Location: [facility] Current Patient Location: [facility] Accession/Order Number: [id number] Exam Date: 10/25/2023 09:00 Report Date: 10/25/2023 10:29 At the request of: CELESTE JACINTO Procedure: US OB transvaginal EXAMINATION: US OB transvaginal HISTORY: MISSED MENSES COMPARISON: No relevant comparison available. FINDINGS: GESTATIONAL SAC: Present and normal appearing. YOLK SAC: Present and normal appearing. POLE: Present and normal appearing. CARDIAC: Present. UTERUS: Normal size and appearance. OVARIES: Right: Normal. Left: Normal. CERVIX: 4.4 cm in length and closed. CUL-DE-SAC: Normal. OTHER: None. AGE BY LMP: 11 weeks 1 day JUDE BY LMP: 05/14/2024 AGE BY US CRL: 6 weeks 0 days JUDE BY US CRL: 06/19/2024 US/US OB transvaginal IMPRESSION: 1. Single live intrauterine . Electronically authenticated by: GURMEET WINTERS Date: 10/25/2023 10:29 Dictated By: Gurmeet Winters M.D. Signed By: 10/25/23 1032 DD/ 1029 TD/TT: Range Aid: Procedure Note Radiology, Radiologist, MD - 10/25/2023 [place] [address] Ultrasound Report Signed Patient: BROOKLYNN GTZ MMR#: [id number] : 1995Acct:[id number] Age/Sex: 28 / FADM Date: 10/25/23 Loc: [facility] Attending Dr: Celeste Jacinto D.O. Ordering Physician: Celeste Jacinto D.O. Date of Service: 10/25/23 Procedure(s): US OB transvaginal Accession Number(s): [id number] cc: Celeste Jacinto D.O.; Michael Guerra M.D. The [place] [id number] Patient Name: BROOKLYNN GTZ MRN: [id number] date: 1995 Sex: F Assigned Patient Location: [facility] Current Patient Location: [facility] Accession/Order Number: [id number] Exam Date: 10/25/2023 09:00 Report Date: 10/25/2023 10:29 At the request of: CELESTE JACINTO Procedure: US OB transvaginal EXAMINATION: US OB transvaginal HISTORY: MISSED MENSES COMPARISON: No relevant comparison available. FINDINGS: GESTATIONAL SAC: Present and normal appearing. YOLK SAC: Present and normal appearing. POLE: Present and normal appearing. CARDIAC: Present. UTERUS: Normal size and appearance. OVARIES: Right: Normal. Left: Normal. CERVIX: 4.4 cm in length and closed. CUL-DE-SAC: Normal. OTHER: None. AGE BY LMP: 11 weeks 1 day JUDE BY LMP: 05/14/2024 AGE BY US CRL: 6 weeks 0 days JUDE BY US CRL: 06/19/2024 US/US OB transvaginal IMPRESSION: 1. Single live intrauterine . Electronically authenticated by: GURMEET WINTERS Date: 10/25/2023 10:29 Dictated By: Gurmeet Winters M.D. Signed By:10/25/23 1032 DD/ 1029 TD/TT: Range Aid: us Generic External Data Provider [facility] Final Result documented in this encounter Visit Diagnoses Not on filedocumented in this encounter Care Teams New Car Make Ready Worker Relationship Specialty Start Date End Date Michael Guerra MD [address] [place] [address] PCP - General Family Medicine 07/11/23 documented as of this encounter
--- OUTSIDE RECORDS SUMMARY | 2024-09-30 10:08 | XMS_ITS | Encounter Summary ---
Author Organization [facility] Address [address] [place] [address] Care Team Providers Care Feather Boner Name Role Phone Michael Guerra MD Primary Care Provider [phone] Michael Guerra MD Primary Care Provider [phone] Michael Guerra MD Primary Care Provider [phone] Encounter Details Date Type Department Care Team (Late st Contact Info) Description 11/28/2022 Abstract [facility] [address] [facility] [place] [address] Remedios Naranjo LPN [address] [facility] [place] [address] Social History Tobacco Use Types Packs/Day Years Used Date Smoking Tobacco: Never Assessed Comments Unknown Sex and Gender Information Value [...] NB OP[facility] [address] [place] [address] Ana Mukherjee MD [address] [place] [address] 11/11/2024 3:20 PM EDT Office Visit [facility] [address] [place] [address] Sam Hooker, DO [address] [facility] [address] [place], [place] [address] 09/23/2025 2:45 PM EDT Office Visit [facility] FM [address] [place] [address] Michael Guerra MD [address] [place] [address] documented as of this encounter Visit Diagnoses Not on filedocumented in this encounter Care Teams Feather Boner Relationship Specialty Start Date End Date Micahel Guerra MD PCP - General Family Medicine 04/08/22 06/12/23 Michael Guerra MD PCP - General Family Medicine 06/13/23 07/10/23 Michael Guerra MD [address] [place] [address] PCP - General Family Medicine 07/11/23 documented as of this encounter
--- OUTSIDE RECORDS SUMMARY | 2024-09-30 10:08 | XMS_ITS | Encounter Summary ---
Author Organization [facility] Address [address] [place] [address] Care Team Providers Care Physician Support Coordinator Name Role Phone Michael Guerra MD Primary Care Provider [phone] Encounter Details Date Type Department Care Team (Late st Contact Info) Description 10/28/2023 Abstract [facility] [address] [place] [address] Sam Hooker, DO [address] [place], [facility] Social History Tobacco Use Types Packs/Day Years [...] NB OP[facility] [address] [place] [address] Ana Mukherjee MD [address] [place] [address] 11/11/2024 3:20 PM EDT Office Visit [facility] OB [address] [facility] [place] [address] Sam Hooker, [address] [facility] [place] [address] 09/23/2025 2:45 PM EDT Office Visit [facility] FM [address] [place] [address] Michael Guerra MD [address] [place] [address] documented as of this encounter Visit Diagnoses Not on filedocumented in this encounter Care Teams Physician Support Coordinator Relationship Specialty Start Date End Date Michael Guerra MD [address] [place] [address] PCP - General Family Medicine 07/11/23 documented as of this encounter
--- OUTSIDE RECORDS SUMMARY | 2024-09-30 10:08 | XMS_ITS | Encounter Summary ---
Author Organization [facility] Address [address] [place] [address] Care Team Providers Care Feed Mill Supervisor Name Role Phone Michael Guerra MD Primary Care Provider [phone] Encounter Details Date Type Department Care Team (Late st Contact Info) Description 10/28/2023 Abstract [facility] [address] [place] [address] Sam Hooker, DO [address] [place], [facility] Social History Tobacco Use Types Packs/Day [...] NB OP[facility] [address] [place] [address] Ana Mukherjee MD [address] [place] [address] 11/11/2024 3:20 PM EDT Office Visit [facility] OB [address] [facility] [address] Sam Hooker, [address] [facility] [place] [address] 09/23/2025 2:45 PM EDT Office Visit [facility] FM [address] [place] [address] Michael Guerra MD [address] [place] [address] documented as of this encounter Visit Diagnoses Not on filedocumented in this encounter Care Teams Feed Mill Supervisor Relationship Specialty Start Date End Date Michael Guerra MD [address] [place] [address] PCP - General Family Medicine 07/11/23 documented as of this encounter
--- OUTSIDE RECORDS SUMMARY | 2024-09-30 10:08 | XMS_ITS | Clinical Summary ---
Author Organization [facility] Healthcare Address [address] [place] [address] Care Team Providers Care Pollution Control Chemist Name Role Phone Michael Guerra MD Primary Care Provider [phone] Allergies Active Allergy Reactions Criticality Noted Date Comments Cefdinir Rash,Shortness of breath High 03/05/2023 Medications Vit-Fe Fumarate-FA ( 1 PLUS 1 PO) Take 1 each by mouth Daily Active magnesium oxide (Mag-Ox) 400 (240 Mg) MG tablet Take 400 mg by mouth Daily 5 Active magnesium oxide (Mag-Ox) 400 MG tabletIndicati ons:6 weeks follow-up ([facility]) Take 1 tablet (400 mg) by mouth Daily 30 tablet 11 5 025 azithromycin (Zithromax Z-Kennedy) 250 MG tabletIndicati ons:Sinus congestion As directed 6 tablet 5 025 Discontinued Active Problems Problem Noted Date Diagnosed Date Annual physical exam 09/22/2024 Assessment & Plan (09/22/2024 3:25 PM EDT): Reviewed labs. Discussed proper diet and regular aerobic exercise. Need aerobic exercise 5-6 days a week for 30 minutes at a time. Smaller portions and limit total calories. Colonoscopy after age 45. Tetanus every 10 years. Advised not to smoke. Scalp cyst 09/22/2024 Assessment & Plan (09/22/2024 3:26 PM EDT): Bumps appear to be benign cysts but tender. Refer to surgeon for excision. Generalized anxiety disorder 07/11/2023 Dyslipidemia 07/11/2023 Metabolic syndrome 07/11/2023 PCOS (polycystic ovarian syndrome) 07/11/2023 Vitamin D deficiency 07/11/2023 Class 2 severe obesity due t o excess calories with serious comorbidity and body mass index (BMI) of 37.0 to 37.9 in adult 07/11/2023 Assessment & Plan (09/22/2024 3:25 PM EDT): Weight loss indicated. 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 Send for throat culture. Use prednisone for inflammation. Increase fluid intake. Use chloraseptic spray, cepacol lozenges and gargle with warm salt water. Use motrin or tylenol as needed for discomfort. Symptoms should improve in 3-5 days and if not call office for reevaluation. Encounters Date Type Department Care Team Description 09/22/2024 2:45 PM EDT Office Visit [facility] [address] [place] [phone] Michael Guerra MD Annual physical exam (Primary Dx); Dyslipidemia ; Scalp cyst; Class 2 severe obesity due to excess calories with serious comorbidity and body mass index (BMI) of 37.0 to 37.9 in adult ([facility]) 09/22/2024 Bamboo flowsheet [facility] FM [address] [place] [address] Michael Guerra MD 09/15/2024 Travel 08/19/2024 Telephone [address] [address] [place] [address] Clarissa Bruno MA 08/10/2024 Telephone [facility] OB [address] [place] [address] Sam Hooker DO 08/07/2024 Clinisync Result Encounter [facility] External Department Unsolicited Provider, Generic External Data 08/03/2024 3:40 PM EDT Visit [facility] OB [address] [place] [address] Sam Hooker DO 6 weeks follow-up ([facility]) 07/27/2024 Travel from Last 3 Months Family History Medical History Relation Name Comments Hypertension Father Mental illness Father Cancer Maternal Grandfather Hypertension Maternal Grandfather Hypertension Mother Relation Name Status Comments Father Alive Maternal Grandfather Mother Alive Social History Tobacco Use Types Packs/Day Years Used Date Smoking Tobacco: Never Smokeless Tobacco: Never Tobacco Cessation:Counseling Given: Not Answered Alcohol Use Standard Drinks/Week Comments Not Currently 0 (1 standard drink = 0.6 oz pur e alcohol) 1-2 a month socially Comments No Sex and Gender Information Value Date Recorded Sex Assigned at Female 12/11/2023 11:22 AM EDT Legal Sex Female 7:47 PM EDT Gender Identity Female 12/11/2023 11:22 AM EDT Sexual Orientation Not on file Last Filed Vital Signs Vital Sign Reading [...] Mass Index 37.75 09/22/2024 2:53 PM EDT Plan of Treatment Upcoming Encounters Date Type Department Care Team (Late st Contact Info) Description 11/04/2024 2:45 PM EDT Office Visit [facility] OPHT [address] [place] [address] Ana Mukherjee MD [address] [place], [place] [id number] 11/11/2024 3:20 PM EDT Office Visit [facility] OB [address] [facility] [address] Sam Hooker, DO [address] [facility] [place] [address] 09/23/2025 2:45 PM EDT Office Visit [facility] FM [address] [place] [address] Michael Guerra MD [address] [place] [address] Health Maintenance Due Date Last Done Comments Influenza Vaccine (Season Ended) 2024 02/07/20 20 Goals Goal Patient Goal Type Associated Problems Recent Progress Patient-Stated? Author Reminders Care Plan OB Reminders No Open Scheduling, Background Procedures Procedure Name Priority Date/Time Associated Diagnosis Comments ALL THYROXINE (T4) FREE Routine 08/07/2024 12:18 PM EDT ALL THYROID STIM HORMONE Routine 08/07/2024 12:18 PM EDT ALL CBC WITH AUTO DIFF Routine 08/07/2024 12:18 PM EDT from Last 3 Months Results * ALL THYROXINE (T4) FREE (08/07/2024 12:18 PM EDT) FREE T4 1.23 0.76 - 1.46 ng/dL [facility]H 08/07/2024 12:1 8 PM EDT 08/07/2024 12:19 PM EDT Narrative [facility] - 08/07/2024 2:11 PM EDT us Sam Morro DO [facility] Final Result [facility] TB * (ABNORMAL) ALL THYROID STIM HORMONE (08/07/2024 12:18 PM EDT) THYROID STIMULATING HORMONE 0.086(L) 0.358 - 3.740 uIU/mL [facility] 08/07/2024 12:1 8 PM EDT 08/07/2024 12:19 PM EDT Narrative [facility] - 08/07/2024 1:17 PM EDT Sam Morro DO [facility] Final Result [facility] TB * ALL CBC WITH AUTO DIFF (08/07/2024 12:18 PM EDT) TB WBC 8.5 4.0 - 11.0 10 3/uL TBH TBH RBC 4.38 4.20 - 5.40 10 6/uL TBH TBH HGB 12.4 12.0 - 16.0 g/dL TBH TBH HCT 38.5 36.0 - 48.0 % TBH TBH MCV 87.9 81.0 - 99.0 fL TBH TBH MCH 28.3 26.7 - 34.0 pg TBH TBH MCHC 32.2 29.9 - 35.2 g/dL TBH TBH RDW 14.6 11.0 - 15.0 % TBH TBH PLT 232 150 - 450 10 3/uL TBH TBH MPV 10.5 9.5 - 13.5 fL TBH NEUTROPHILS PERCENT AUTO 69.4 43.0 - 75.0 % TBH LYMPHOCYTES PERCENT AUTO 20.6 20.5 - 60.0 % TBH MONOCYTES PERCENT AUTO 7.2 1.7 - 12.0 % TBH TBH EO % 2.0 0.9 - 7.0 % TBH BASOPHILS PERCENT AUTO 0.6 0.2 - 2.0 % TBH IMMATURE GRANULOCYTES PCT AUTO 0.2 0.0 - 0.5 % TBH NEUTROPHILS ABSOLUTE AUTO 5.9 1.4 - 6.5 10 3/uL TBH LYMPHOCYTES ABSOLUTE AUTO 1.8 1.2 - 3.8 10 3/uL TBH MONOCYTES ABSOLUTE AUTO 0.6 0.3 - 0.8 10 3/uL TBH TBH EO # 0.2 0.0 - 0.7 10 3/uL TBH BASOPHILS ABSOLUTE AUTO 0.1 0.0 - 0.1 10 3/uL TBH IMMATURE GRANULOCYTES ABS AUTO 0.02 0.00 - 0.03 10 3/uL TBH 08/07/2024 12:1 8 PM EDT 08/07/2024 12:19 PM EDT Narrative [facility] - 08/07/2024 12:53 PM EDT us Sam Morro DO [facility] Final Result [facility] TBH from Last 3 Months Additional Health Concerns Active Problems Noted Date Diagnosed Date OB Reminders 02/16/2024 Insurance [facility] Care Teams Pollution Control Chemist Relationship Specialty Start Date End Date Michael Guerra MD [address] [place] [address] PCP - General Family Medicine 07/11/23
--- OUTSIDE RECORDS SUMMARY | 2024-09-30 10:08 | XMS_ITS | Encounter Summary ---
Author Organization [facility] Address [address] [place] [address] Care Team Providers Care Varsity Baseball Coach Name Role Phone Michael Guerra MD Primary Care Provider [phone] Encounter Details Date Type Department Care Team (Late Contact Info) Description 09/22/2024 Bamboo flowsheet [facility] [address] [place] [address] Michael Guerra MD [address] [place] [address] Social History Tobacco Use Types Packs/Day Years [...] Encounters Date Type Department Care Team (Late Contact Info) Description 11/04/2024 2:45 PM EDT Office Visit [facility] [address] [place] [phone] Ana Mukherjee MD [address] [place] [address] 11/11/2024 3:20 PM EDT Office Visit [facility] OB [address] [place] [address] Sam Hooker, DO [address] [place] [address] 09/23/2025 2:45 PM EDT Office Visit [facility] [address] [place] [address] Michael Guerra MD [address] [place] [address] documented as of this encounter Goals Goal Patient Goal Type Associated Problems Recent Progress Patient-Stated? Author Reminders Care Plan OB Reminders No Open Scheduling, Background documented as of this encounter Visit Diagnoses Not on filedocumented in this encounter Additional Health Concerns Active Problems Noted Date Diagnosed Date OB Reminders 02/16/2024 documented as of this encounter Care Teams Varsity Baseball Coach Relationship Specialty Start Date End Date Michael Guerra MD [address] [place] [address] PCP - General Family Medicine 07/11/23 documented as of this encounter
--- OUTSIDE RECORDS SUMMARY | 2024-09-30 10:08 | XMS_ITS | Encounter Summary ---
Author Organization [facility] Address [address] [place] [address] Care Team Providers Care Refrigeration Supervisor Name Role Phone Michael Guerra MD Primary Care Provider [phone] Encounter Details Date Type Department Care Team (Late st Contact Info) Description 10/28/2023 Abstract [facility] OB [address] [place] [address] Sam Hooker, DO [address] [place], [id number] Social History Tobacco Use Types Packs/Day Years [...] NB OPHT [address] [place] [address] Ana Mukherjee MD [address] [place] [address] 11/11/2024 3:20 PM EDT Office Visit [facility] OB [address] [facility] [place] [address] Sam Hooker, [address] [facility] [place] [address] 09/23/2025 2:45 PM EDT Office Visit [facility] [address] [place] [address] Michael Guerra MD [address] [place] [address] documented as of this encounter Visit Diagnoses Not on filedocumented in this encounter Care Teams Refrigeration Supervisor Relationship Specialty Start Date End Date Michael Guerra MD [address] [place] [address] PCP - General Family Medicine 07/11/23 documented as of this encounter
--- OUTSIDE RECORDS SUMMARY | 2024-09-30 10:09 | XMS_ITS | Encounter Summary ---
Author Organization [facility] Address [address] [place] [address] Care Team Providers Care Trouble Dispatcher Name Role Phone Michael Guerra MD Primary Care Provider Encounter Details Date Type Department Care Team (Late st Contact Info) Description 10/30/2023 Abstract [facility] OB [address] [place] [address] Sam Hooker, DO [address] [place], [facility] Social History Tobacco Use Types Packs/Day Years Used Date Smoking Tobacco: Never Smokeless Tobacco: Never Alcohol Use Standard Drinks/Week Comments Never 0 (1 standard drink = 0.6 oz pur e alcohol) Comments Yes Sex and Gender Information Value Date Recorded [...] NB OPHT [address] [place] [phone] Ana Mukherjee MD [address] [place] [address] 11/11/2024 3:20 PM EDT Office Visit [facility] OB [address] [facility] [place] [address] Sam Hooker, [address] [facility] [place] [address] 09/23/2025 2:45 PM EDT Office Visit [facility] [address] [place] [address] Michael Guerra MD [address] [place] [address] documented as of this encounter Visit Diagnoses Not on filedocumented in this encounter Care Teams Trouble Dispatcher Relationship Specialty Start Date End Date Michael Guerra MD [address] [place] [address] PCP - General Family Medicine 07/11/23 documented as of this encounter
--- OUTSIDE RECORDS SUMMARY | 2024-09-30 10:09 | XMS_ITS | Encounter Summary ---
Author Organization [facility] Address [address] [place] [address] Care Team Providers Care Supervisor Line Department Name Role Phone Michael Guerra MD Primary Care Provider [phone] Encounter Details Date Type Department Care Team (Late st Contact Info) Description 12/23/2023 Abstract [facility] OB [address] [place] [address] Sam Hooker, DO [address] [place], [facility]11 Social History Tobacco Use Types Packs/Day [...] NB OPHT [address] [place] [address] Ana Mukherjee MD [address] [place] [address] 11/11/2024 3:20 PM EDT Office Visit [facility] OB [address] [facility] [place] [address] Sam Hooker, [address] [facility] [place] [address] 09/23/2025 2:45 PM EDT Office Visit [facility] [address] [place] [address] Michael Guerra MD [address] [place] [address] documented as of this encounter Visit Diagnoses Not on filedocumented in this encounter Care Teams Supervisor Line Department Relationship Specialty Start Date End Date Michael Guerra MD [address] [place] [address] PCP - General Family Medicine 07/11/23 documented as of this encounter
--- OUTSIDE RECORDS SUMMARY | 2024-09-30 10:09 | XMS_ITS | Encounter Summary ---
Author Organization [facility] Address [address] [place] [address] Care Team Providers Care Sql Data Architect Name Role Phone Michael Guerra MD Primary Care Provider [phone] Encounter Details Date Type Department Care Team (Late st Contact Info) Description 05/21/2024 Abstract [facility] OB [address] [place] [address] Sam Hooker, DO [address] [place] [address] Social History Tobacco Use Types Packs/Day Years Used Date Smoking Tobacco: Never Smokeless Tobacco: Never Alcohol Use Standard Drinks/Week Comments Not Currently 0 (1 standard drink = 0.6 oz pur e alcohol) 1-2 a month socially Comments Yes Sex and Gender Information Value [...] NB OPHT [address] [place] [address] Ana Mukherjee MD [address] [place] [address] 11/11/2024 3:20 PM EDT Office Visit [facility] OB [address] [place] [address] Sam Hooker, DO [address] [place] [address] 09/23/2025 2:45 PM EDT Office Visit [facility] [address] [place] [address] Michael Guerra MD [address] [place] [address] documented as of this encounter Goals Goal Patient Goal Type Associated Problems Recent Progress Patient-Stated? Author Reminders Care Plan OB Reminders No Open Scheduling, Background documented as of this encounter Visit Diagnoses Not on filedocumented in this encounter Additional Health Concerns Active Problems Noted Date Diagnosed Date OB Reminders 02/16/2024 documented as of this encounter Care Teams Sql Data Architect Relationship Specialty Start Date End Date Michael Guerra MD [address] [place] [address] PCP - General Family Medicine 07/11/23 documented as of this encounter
--- OUTSIDE RECORDS SUMMARY | 2024-09-30 10:09 | XMS_ITS | Encounter Summary ---
Author Organization [facility] Address [address] [place] [address] Care Team Providers Care Merchandiser Retail Representative Name Role Phone Michael Guerra MD Primary Care Provider [phone] Encounter Details Date Type Department Care Team (Late st Contact Info) Description 06/19/2024 Abstract [facility] OB [address] [place] [address] Sam Hooker, DO [address] [place] [address] Social History Tobacco Use Types Packs/Day Years [...] NB OPHT [address] [place] [address] Ana Mukherjee MD [address] [place] [address] 11/11/2024 3:20 PM EDT Office Visit [facility] OB [address] [place] [address] Sam Hooker, DO [address] [place] [address] 09/23/2025 2:45 PM EDT Office Visit [facility] [address] [place] [address] Michael Guerra MD [address] [place] [address] documented as of this encounter Goals Goal Patient Goal Type Associated Problems Recent Progress Patient-Stated? Author Reminders Care Plan OB Reminders No Open Scheduling, Background documented as of this encounter Visit Diagnoses Not on filedocumented in this encounter Additional Health Concerns Active Problems Noted Date Diagnosed Date OB Reminders 02/16/2024 documented as of this encounter Care Teams Merchandiser Retail Representative Relationship Specialty Start Date End Date Michael Guerra MD [address] [place] [address] PCP - General Family Medicine 07/11/23 documented as of this encounter
--- OUTSIDE RECORDS SUMMARY | 2024-09-30 10:09 | XMS_ITS | Encounter Summary ---
Author Organization [facility] Address [address] [place] [address] Care Team Providers Care Bioprocess Engineer Name Role Phone Michael Guerra MD Primary Care Provider [phone] Encounter Details Date Type Department Care Team (Late st Contact Info) Description 01/29/2024 Clinisync Result Encounter [facility] External Department Unsolicited [...] NB OPHT [address] [place] [address] Ana Mukherjee MD [address] [place] [address] 11/11/2024 3:20 PM EDT Office Visit [facility] [address] [facility] [place] [address] Celeste Jacinto, DO [address] [facility] [place] [address] 09/23/2025 2:45 PM EDT Office Visit [facility] [address] [place] [address] Michael Guerra MD [address] [place] [address] documented as of this encounter Procedures Procedure Name Priority Date/Time Associated Diagnosis Comments US OB CERVICAL LENGTH 01/29/2024 4:13 PM EDT documented in this encounter Results * US OB CERVICAL LENGTH (01/29/2024 4:13 PM EDT) Anatomical Region Laterality Modality Other 01/29/2024 4:13 PM EDT Narrative 01/29/2024 4:16 [place] [address] Ultrasound Report Signed Patient: BROOKLYNN GTZ MR#: [id number] : 1995 Acct:[id number] Age/Sex: 28 / F ADM Date: 01/29/24 Loc: [facility] Attending Dr: Celeste Jacinto D.O. Ordering Physician: Celeste Jacinto D.O. Date of Service: 01/29/24 Procedure(s): US OB cervical length Accession Number(s): [id number] cc: Celeste Jacinto D.O.; Michael Guerra M.D. The [address] [address] Patient Name: BROOKLYNN GTZ MRN: [id number] date: 1995 Sex: F Assigned Patient Location: [facility] Current Patient Location: [facility] Accession/Order Number: [id number] Exam Date: 01/29/2024 14:30 Report Date: 01/29/2024 16:13 At the request of: CELESTE JACINTO Procedure: US OB cervical length EXAMINATION: US OB anatomy, US OB cervical length HISTORY: ANATOMY COMPARISON: Ultrasound OB transvaginal 10/25/2023 TECHNIQUE: Transabdominal sonographic examination was performed for obstetrical and evaluation. FINDINGS: Number: 1 Heart Rate: 148 bpm H.B. /min Amniotic Fluid Volume: Subjectively normal Placental Location: Fundal with lower margin seen along the anterior wall, 6.1 cm from internal os. Cervix Length: 4.42 cm , closed. ANATOMY: Normal Structures -cerebellum, choroid plexus, cisterna magna, lateral cerebral ventricles, orbits, midline falx, hard palate, four-chamber heart, RVOT, LVOT, stomach, kidneys, bladder, umbilical cord insertion into abdomen, three-vessel cord, cervical spine, thoracic spine, lumbar spine, sacral spine, right upper extremity, left upper extremity, right lower extremity, left lower extremity. SUBOPTIMALLY SEEN: Hard palate and three-vessel cord ABNORMALITIES: None BIOMETRY: BPD: 4.72 cm; 20 weeks 2 days; 73.10 % HC: 17.83 cm; 20 weeks 2 days; 69.50 % AC: 16.09 cm; 21 weeks 1 day; 87.30 % FL: 3.50 cm; 21 weeks 0 days; 85.20 % EFW:374.55 g; >97 % FL/AC: 21.75 FL/BPD: 74.15 HC/AC: 1.11 GESTATIONAL AGE: Age by EDC: 19 weeks 5 days Age by current US: 20 weeks 5 days JUDE by current US: 2024-06-12 JUDE by EDC: 2024-06-19 US/US OB cervical length IMPRESSION: 1. Single live intrauterine with growth detailed above. 2. Suboptimal visualization of the hard palate and the three-vessel cord due to patient body habitus. 3. Estimated weight is greater than 97th percentile. Electronically authenticated by: GURMEET WINTERS Date: 01/29/2024 16:13 Dictated By: Gurmeet Winters M.D. Signed By: 01/29/24 1616 DD/ 12 TD/TT: Cooler Man: Procedure Note Radiology, Radiologist, - 01/29/2024 [place] [address] Ultrasound Report Signed Patient: BROOKLYNN GTZ MMR#: [id number] : 1995Acct:[id number] Age/Sex: 28 / FADM Date: 01/29/24 Loc: [facility] Attending Dr: Celeste Jacinto D.O. Ordering Physician: Celeste Jacinto D.O. Date of Service: 01/29/24 Procedure(s): US OB cervical length Accession Number(s): [id number] cc: Celeste Jacinto D.O.; Michael Guerra M.D. The [address] [address] Patient Name: BROOKLYNN GTZ MRN: [id number] date: 1995 Sex: F Assigned Patient Location: [facility] Current Patient Location: [facility] Accession/Order Number: [id number] Exam Date: 01/29/2024 14:30 Report Date: 01/29/2024 16:13 At the request of: CELESTE JACINTO Procedure: US OB cervical length EXAMINATION: US OB anatomy, US OB cervical length HISTORY: ANATOMY COMPARISON: Ultrasound OB transvaginal 10/25/2023 TECHNIQUE: Transabdominal sonographic examination was performed for obstetrical and evaluation. FINDINGS: Number: 1 Heart Rate: 148 bpm H.B. /min Amniotic Fluid Volume: Subjectively normal Placental Location: Fundal with lower margin seen along the anterior wall,6.1 cm from internal os. Cervix Length: 4.42 cm , closed. ANATOMY: Normal Structures -cerebellum, choroid plexus, cisterna magna, lateral cerebral ventricles, orbits, midline falx, hard palate, four-chamberheart, RVOT, LVOT, stomach, kidneys, bladder, umbilical cord insertion intoabdomen, three-vessel cord, cervical spine, thoracic spine, lumbar spine, sacralspine, right upper extremity, left upper extremity, right lower extremity, leftlower extremity. SUBOPTIMALLY SEEN: Hard palate and three-vessel cord ABNORMALITIES: None BIOMETRY: BPD: 4.72 cm; 20 weeks 2 days; 73.10 % HC: 17.83 cm; 20 weeks 2 days; 69.50 % AC: 16.09 cm; 21 weeks 1 day; 87.30 % FL: 3.50 cm; 21 weeks 0 days; 85.20 % EFW:374.55 g; >97 % FL/AC: 21.75 FL/BPD: 74.15 HC/AC: 1.11 GESTATIONAL AGE: Age by EDC: 19 weeks 5 days Age by current US: 20 weeks 5 days JUDE by current US: 2024-06-12 JUDE by EDC: 2024-06-19 US/US OB cervical length IMPRESSION: 1. Single live intrauterine with growth detailed above. 2. Suboptimal visualization of the hard palate and the three-vessel corddue to patient body habitus. 3. Estimated weight is greater than 97th percentile. Electronically authenticated by: GURMEET WINTERS Date: 01/29/2024 16:13 Dictated By: Gurmeet Winters M.D. Signed By:01/29/241615 DD/ 12 TD/TT: Cooler Man: us Generic External Data Provider [facility] Final Result documented in this encounter Visit Diagnoses Not on filedocumented in this encounter Care Teams Bioprocess Engineer Relationship Specialty Start Date End Date Michael Guerra MD [address] [place] [address] PCP - General Family Medicine 07/11/23 documented as of this encounter
--- OUTSIDE RECORDS SUMMARY | 2024-09-30 10:09 | XMS_ITS | Encounter Summary ---
Author Organization [facility] Address [address] [place] [address] Care Team Providers Care Office Support Assistant Name Role Phone Michael Guerra MD Primary Care Provider [phone] Encounter Details Date Type Department Care Team [...] NB OPHT [address] [place] [address] Ana Mukherjee MD [address] [place] [address] 11/11/2024 3:20 PM EDT Office Visit [facility] [address] [facility] [place] [address] Celeste Jacinto, DO [address] [place] [address] [place] [address] 09/23/2025 2:45 PM EDT Office Visit [facility] [address] [place] [address] Michael Guerra MD [address] [place] [address] documented as of this encounter Procedures Procedure Name Priority Date/Time Associated Diagnosis Comments US OB ANATOMY 01/29/2024 4:13 PM EDT documented in this encounter Results * US OB ANATOMY (01/29/2024 4:13 PM EDT) Anatomical Region Laterality Modality Other 01/29/2024 4:13 PM EDT Narrative 01/29/2024 4:16 [place] [address] Ultrasound Report Signed Patient: BROOKLYNN GTZ MR#: [id number] : 1995 Acct:[id number] Age/Sex: 28 / F ADM Date: 01/29/24 Loc: [facility] Attending Dr: Celeste Jacinto D.O. Ordering Physician: Celeste Jacinto D.O. Date of Service: 01/29/24 Procedure(s): US OB anatomy Accession Number(s): [id number] cc: Celeste Jacinto D.O.; Michael Guerra M.D. The [address] [address] Patient Name: BROOKLYNN GTZ MRN: [id number] date: 1995 Sex: F Assigned Patient Location: [facility] Current Patient Location: [facility] Accession/Order Number: [id number] Exam Date: 01/29/2024 14:30 Report Date: 01/29/2024 16:13 At the request of: CELESTE JACINTO Procedure: US OB anatomy EXAMINATION: US OB anatomy, US OB cervical [...] 2024-06-12 JUDE by EDC: 2024-06-19 US/US OB anatomy IMPRESSION: 1. Single live intrauterine with growth detailed above. 2. Suboptimal visualization of the hard palate and the three-vessel cord due to patient body habitus. 3. Estimated weight is greater than 97th percentile. Electronically authenticated by: GURMEET WINTERS Date: 01/29/2024 16:13 Dictated By: Gurmeet Winters M.D. Signed By: 01/29/241615 DD/ 12 TD/TT: Station Baggage Agent: Procedure Note Radiology, Radiologist, - 01/29/2024 [place] [address] Ultrasound Report Signed Patient: BROOKLYNN GTZ MMR#: [id number] : 1995Acct:[id number] Age/Sex: 28 / FADM Date: 01/29/24 Loc: [facility] Attending Dr: Celeste Jacinto D.O. Ordering Physician: Celeste Jacinto D.O. Date of Service: 01/29/24 Procedure(s): US OB anatomy Accession Number(s): [id number] cc: Celeste Jacinto D.O.; Michael Guerra M.D. [place] [id number] Patient Name: BROOKLYNN GTZ MRN: [id number] date: 1995 Sex: F Assigned Patient Location: [facility] Current Patient Location: [facility] Accession/Order Number: [id number] Exam Date: 01/29/2024 14:30 Report Date: 01/29/2024 16:13 At the request of: CELETSE JACINTO Procedure: US OB anatomy EXAMINATION: US OB anatomy, US OB cervical [...] 2024-06-12 JUDE by EDC: 2024-06-19 US/US OB anatomy IMPRESSION: 1. Single live intrauterine with growth detailed above. 2. Suboptimal visualization of the hard palate and the three-vessel corddue to patient body habitus. 3. Estimated weight is greater than 97th percentile. Electronically authenticated by: GURMEET WINTERS Date: 01/29/2024 16:13 Dictated By: Gurmeet Winters M.D. Signed By:01/29/241615 DD/ 12 TD/TT: Station Baggage Agent: us Generic External Data Provider [facility] Final Result documented in this encounter Visit Diagnoses Not on filedocumented in this encounter Care Teams Office Support Assistant Relationship Specialty Start Date End Date Michael Guerra MD [address] [place] [address] PCP - General Family Medicine 07/11/23 documented as of this encounter
--- OUTSIDE RECORDS SUMMARY | 2024-09-30 10:09 | XMS_ITS | Encounter Summary ---
Author Organization [facility] Address [address] [place] [address] Care Team Providers Care Strand Galvanizer Name Role Phone Michael Guerra MD Primary Care Provider [phone] Encounter Details Date Type Department Care Team (Late st Contact Info) Description 10/28/2023 Abstract [facility] [address] [place] [address] Sam Hooker, DO [address] Adalgisa Huffman, [id number] Social History Tobacco Use Types Packs/Day Years [...] NB OPHT [address] [place] [address] Ana Mukherjee MD [address] [place] [address] 11/11/2024 3:20 PM EDT Office Visit [facility] [address] [facility] [place] [address] Sam Hooker, [address] [facility] [place] [address] 09/23/2025 2:45 PM EDT Office Visit [facility] [address] [place] [address] Michael Guerra MD [address] [place] [address] documented as of this encounter Visit Diagnoses Not on filedocumented in this encounter Care Teams Strand Galvanizer Relationship Specialty Start Date End Date Michael Guerra MD [address] [place] [address] PCP - General Family Medicine 07/11/23 documented as of this encounter
--- OUTSIDE RECORDS SUMMARY | 2024-09-30 10:09 | XMS_ITS | Encounter Summary ---
Author Organization [facility] Address [address] [place] [address] Care Team Providers Care Investment Representative Name Role Phone Michael Guerra MD Primary Care Provider [phone] Encounter Details Date Type Department Care Team (Late st Contact Info) Description 11/27/2023 Abstract [facility] [address] [place] [address] Sam Hooker, DO [address] Adalgisa Huffman, [id number] Social History Tobacco Use Types Packs/Day Years [...] NB OPHT [address] [place] [address] Ana Mukherjee MD [address] [place] [address] 11/11/2024 3:20 PM EDT Office Visit [facility] [address] [facility] [place] [address] Sam Hooker, [address] [facility] [place] [address] 09/23/2025 2:45 PM EDT Office Visit [facility] [address] [place] [address] Michael Guerra MD [address] [place] [address] documented as of this encounter Visit Diagnoses Not on filedocumented in this encounter Care Teams Investment Representative Relationship Specialty Start Date End Date Michael Guerra MD [address] [place] [address] PCP - General Family Medicine 07/11/23 documented as of this encounter
--- OUTSIDE RECORDS SUMMARY | 2024-09-30 10:09 | XMS_ITS | Encounter Summary ---
Author Organization [facility] Address [address] [place] [address] Care Team Providers Care Head Turbine Operator Name Role Phone Michael Guerra MD Primary Care Provider [phone] Encounter Details Date Type Department Care Team (Late st Contact Info) Description 04/06/2024 Clinisync Result Encounter N[facility] External Department Unsolicited [...] NB OPHT [address] [place] [address] Ana Mukherjee MD [address] [place] [address] 11/11/2024 3:20 PM EDT Office Visit [facility] [address] [facility] [place] [address] Celeste Jacinto, DO [address] [facility] [place] [address] 09/23/2025 2:45 PM EDT Office Visit [facility] [address] [place] [address] Michael Guerra MD [address] [place] [address] documented as of this encounter Goals Goal Patient Goal Type Associated Problems Recent Progress Patient-Stated? Author Reminders Care Plan OB Reminders No Open Scheduling, Background documented as of this encounter Procedures Procedure Name Priority Date/Time Associated Diagnosis Comments US OB INCOMPLETE ANATOMY 04/06/2024 3:45 PM EST documented in this encounter Results * US OB INCOMPLETE ANATOMY (04/06/2024 3:45 PM EST) Anatomical Region Laterality Modality Other 04/06/2024 3:45 PM EST Narrative 04/06/2024 3:47 PM EST The [address] [address] Ultrasound Report Signed Patient: BROOKLYNN GTZ MR#: [id number] : 1995 Acct:[id number] Age/Sex: 29 / F ADM Date: 04/06/24 Loc: US Attending Dr: Celeste Jacinto D.O. Ordering Physician: Celeste Jacinto D.O. Date of Service: 04/06/24 Procedure(s): US OB incomplete anatomy Accession Number(s): [id number] cc: Celeste Jacinto D.O.; Michael Guerra M.D. The [address] [address] Patient Name: BROOKLYNN GTZ MRN: [id number] date: 1995 Sex: F Assigned Patient Location: US Current Patient Location: US Accession/Order Number: [id number] Exam Date: 04/06/2024 14:40 Report Date: 04/06/2024 15:45 At the request of: CELESTE JACINTO Procedure: US OB incomplete anatomy EXAM: US OB incomplete anatomy HISTORY: Follow Up Ultrasound Of Anatomy COMPARISON: Ultrasound OB anatomy 01/29/2024 TECHNIQUE: Transabdominal ultrasound FINDINGS: Heart rate: 173 beats minute. Anatomy: Nose and lips, three-vessel cord GA: 29 weeks 3 days JUDE: 06/19/2024 US/US OB incomplete anatomy IMPRESSION: 1. Single live intrauterine . 2. Adequate visualization of the nose and lips/hard palate and the three-vessel cord. No appreciable abnormality. Electronically authenticated by: GURMEET WINTERS Date: 04/06/2024 15:45 Dictated By: Gurmeet Winters M.D. Signed By: 04/06/24 1547 DD/ 1545 TD/TT: Exhibitions Curator: Procedure Note Radiology, Radiologist, MD - 04/06/2024 [place] [address] Ultrasound Report Signed Patient: BROOKLYNN GTZ MMR#: [id number] : 1995Acct:[id number] Age/Sex: FAD Date: 04/06/24 Loc: US Attending Dr: Celeste Jacinto D.O. Ordering Physician: Celeste Jacinto D.O. Date of Service: 04/06/24 Procedure(s): US OB incomplete anatomy Accession Number(s): [id number] cc: Celeste Jacinto D.O.; Michael Guerra M.D. The [place] [id number] Patient Name: BROOKLYNN GTZ MRN: [id number] date: 1995 Sex: F Assigned Patient Location: US Current Patient Location: US Accession/Order Number: [id number] Exam Date: 04/06/2024 14:40 Report Date: 04/06/2024 15:45 At the request of: CELESTE JACINTO Procedure: US OB incomplete anatomy EXAM: US OB incomplete anatomy HISTORY: Follow Up Ultrasound Of Anatomy COMPARISON: Ultrasound OB anatomy 01/29/2024 TECHNIQUE: Transabdominal ultrasound FINDINGS: Heart rate: 173 beats minute. Anatomy: Nose and lips, three-vessel cord GA: 29 weeks 3 days JUDE: 06/19/2024 US/US OB incomplete anatomy IMPRESSION: 1. Single live intrauterine . 2. Adequate visualization of the nose and lips/hard palate and the three-vessel cord. No appreciable abnormality. Electronically authenticated by: GURMEET WINTERS Date: 04/06/2024 15:45 Dictated By: Gurmeet Winters M.D. Signed By:04/06/24 1547 DD/ 1545 TD/TT: Exhibitions Curator: us Generic External Data Provider [facility] Final Result documented in this encounter Visit Diagnoses Not on filedocumented in this encounter Additional Health Concerns Active Problems Noted Date Diagnosed Date OB Reminders 02/16/2024 documented as of this encounter Care Teams Head Turbine Operator Relationship Specialty Start Date End Date Michael Guerra MD [address] [place] [address] PCP - General Family Medicine 07/11/23 documented as of this encounter
--- OUTSIDE RECORDS SUMMARY | 2024-09-30 10:09 | XMS_ITS | Encounter Summary ---
Author Organization [facility] Address [address] [place] [address] Care Team Providers Care Court Worker Name Role Phone Michael uGerra MD Primary Care Provider [phone] Encounter Details Date Type Department Care Team (Late st Contact Info) Description 11/01/2023 Abstract [facility] [address] [employer] [place] [address] Priya Lucero LPN [address] [place] [address] Social History Tobacco Use Types [...] NB OPHT [address] [place] [address] Ana Mukherjee MD [address] [place] [address] 11/11/2024 3:20 PM EDT Office Visit [facility] [address] [facility] [place] [address] Sam Hooker, [address] [facility] [place] [address] 09/23/2025 2:45 PM EDT Office Visit [facility] [address] [place] [address] Michael Guerra MD [address] [place] [address] documented as of this encounter Visit Diagnoses Not on filedocumented in this encounter Care Teams Court Worker Relationship Specialty Start Date End Date Michael Guerra MD [address] [place] [address] PCP - General Family Medicine 07/11/23 documented as of this encounter
--- OUTSIDE RECORDS SUMMARY | 2024-09-30 10:09 | XMS_ITS | Encounter Summary ---
Author Organization [facility] Address [address] [place] [address] Care Team Providers Care Digital Forensic Analyst Name Role Phone Michael Guerra MD Primary Care Provider [phone] Encounter Details Date Type Department Care Team (Late st Contact Info) Description 12/12/2023 Abstract [facility] [address] [place] [address] Sam Hooker, DO [address] Huffman, [facility]11 Social History Tobacco Use Types Packs/Day Years [...] NB OPHT [address] [place] [address] Ana Mukherjee MD [address] [place] [address] 11/11/2024 3:20 PM EDT Office Visit [facility] [address] [facility] [place] [address] Sam Hooker, [address] [facility] [place] [address] 09/23/2025 2:45 PM EDT Office Visit [facility] [address] [place] [address] Michael Guerra MD [address] [place] [address] documented as of this encounter Visit Diagnoses Not on filedocumented in this encounter Care Teams Digital Forensic Analyst Relationship Specialty Start Date End Date Michael Guerra MD [address] [place] [address] PCP - General Family Medicine 07/11/23 documented as of this encounter
--- OUTSIDE RECORDS SUMMARY | 2024-09-30 10:09 | XMS_ITS | Encounter Summary ---
Author Organization [facility] Address [address] [place] [address] Care Team Providers Care Paper Folding Machine Operator Name Role Phone Michael Guerra MD Primary Care Provider [phone] Encounter Details Date Type Department Care Team (Late st Contact Info) Description 10/30/2023 Abstract [facility] [address] [place] [address] Sam Hooker, DO [address] Adalgisa Huffman, [id number] Social History Tobacco Use Types Packs/Day Years [...] NB OPHT [address] [place] [address] Ana Mukherjee MD [address] [place] [address] 11/11/2024 3:20 PM EDT Office Visit [facility] [address] [facility] [place] [address] Sam Hooker, [address] [facility] [place] [address] 09/23/2025 2:45 PM EDT Office Visit [facility] [address] [place] [address] Michael Guerra MD [address] [place] [address] documented as of this encounter Visit Diagnoses Not on filedocumented in this encounter Care Teams Paper Folding Machine Operator Relationship Specialty Start Date End Date Michael Guerra MD [address] [place] [address] PCP - General Family Medicine 07/11/23 documented as of this encounter
--- OUTSIDE RECORDS SUMMARY | 2024-09-30 10:09 | XMS_ITS | Encounter Summary ---
Author Organization [facility] Address [address] [place] [address] Care Team Providers Care Medical Assisting Program Director Name Role Phone Michael Guerra MD Primary Care Provider [phone] Encounter Details Date Type Department Care Team (Late st Contact Info) Description 10/30/2023 Abstract [facility] [address] [place] [address] Priya Lucero LPN [address] [place] [address] Social History Tobacco Use Types [...] NB OPHT [address] [place] [address] Ana Mukherjee MD [address] [place] [address] 11/11/2024 3:20 PM EDT Office Visit [facility] [address] [facility] [place] [address] Sam Hooker, [address] [facility] [place] [address] 09/23/2025 2:45 PM EDT Office Visit [facility] [address] [place] [address] Michale Guerra MD [address] [place] [address] documented as of this encounter Visit Diagnoses Not on filedocumented in this encounter Care Teams Medical Assisting Program Director Relationship Specialty Start Date End Date Michael Guerra MD [address] [place] [address] PCP - General Family Medicine 07/11/23 documented as of this encounter
[2024-09-30 11:06] LABS: Thyroid Stimulating Hormone 2.563 uIU/mL (0.358-3.740)
== END 2024-09-30 10:05 | disposition home or self-care (01) ==
LOC: LAB 10:05
PROVIDERS: PCP Family Medicine; Visit Provider Obstetrics & Gynecology
DX: E07.9 Disorder of thyroid, unspecified (principal)
CPT/HCPCS: 36415; 84443

== ENCOUNTER 2024-11-03 10:08 | Outpatient (OUT) | payer OTHER, SELFPAY | END 2024-11-03 10:09 | disposition home or self-care (01) | LOC: PST 10:08 | PROVIDERS: PCP Family Medicine; Visit Provider Surgery | DX: Z01.818 Encounter for other preprocedural examination (principal); L72.11 Pilar cyst ==

== ENCOUNTER 2024-11-11 09:36 | Day surgery (SDC) | payer OTHER, SELFPAY ==
--- OUTSIDE RECORDS SUMMARY | 2024-11-04 14:45 | XMS_ITS | Encounter Summary ---
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) Social History Tobacco Use Types Packs/Day Years Used Date Smoking Tobacco: Never Smokeless Tobacco: Never Alcohol Use Standard Drinks/Week Comments Not Currently 0 (1 standard drink = 0.6 oz pur e alcohol) 1-2 a month socially Comments Unknown Sex and Gender Information Value Date Recorded Sex Assigned at Female 12/11/2023 11:22 AM EDT Legal Sex Female 7:47 PM EDT Gender Identity Female 12/11/2023 11:22 AM EDT Sexual Orientation Not on file documented as of this encounter Progress Notes * Ana Mukherjee MD - 11/04/2024 2:45 PM EDT Allergies Allergen Reactions Cefdinir Rash and Shortness of breath Past Medical History: Diagnosis Date Back pain Cold sore Dyslipidemia SONYA (generalized anxiety disorder) History of migraine headaches Kidney stones Migraines Obesity PCOS (polycystic ovarian syndrome) Vitamin D deficiency Assessment/Plan excise documented in this encounter Plan of Treatment Upcoming Encounters Date Type Department Care Team (Late st Contact Info) Description 11/11/2024 3:20 PM EDT Office Visit [facility] [place] [facility] [address] [facility] [place] [address] Sam Hooker DO [address] [place] [address] 12/17/2024 2:30 PM EDT Procedure Visit [facility] [address] [place] [address] Ana Mukherjee MD [address] [place] [address] 09/23/2025 2:45 PM EDT Office Visit [facility] [address] [place] [address] Michael Guerra MD [address] [place] [address] documented as of this encounter Goals Goal Patient Goal Type Associated Problems Recent Progress Patient-Stated? Author Reminders Care Plan OB Reminders No Open Scheduling, Background documented as of this encounter Visit Diagnoses Diagnosis Benign neoplasm of left upper eyelid- Primary documented in this encounter Additional Health Concerns Active Problems Noted Date Diagnosed Date OB Reminders 02/16/2024 documented as of this encounter Care Teams Pharmacy Buyer Relationship Specialty Start Date End Date Michael Guerra MD [address] [place] [address] PCP - General Family Medicine 07/11/23 documented as of this encounter
--- NOTE | 2024-11-11 | OP_ITS ---
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 PROCEDURE: Excisional biopsy at 1 cm mid parietal scalp and 5 mm mid occipital scalp pilar cyst. SURGEON: Brandin Valdez M.D. ANESTHESIA: Local with 0.5% Marcaine plain. ESTIMATED BLOOD LOSS: Less than 5 mL. 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 The parietal lesion has been sore recently but with no drainage. Indications, risks, benefits, alternatives of proceeding with excisional biopsy under local anesthesia were explained extensively to the patient, including the risks of bleeding, infection, scarring, pain, recurrence and need for further surgery. All of her questions were answered. Informed consent was obtained. PROCEDURE: Patient brought to the operating room, placed in the supine position. The areas were prepped and draped in the usual sterile fashion. They were anesthetized with 0.5% Marcaine plain. The mid parietal lesion was incised overlying the lesion with a scalpel blade and carried down subcutaneous tissue using sharp dissection. A ruptured, 1 cm pilar cyst was identified and removed in a piecemeal fashion. Incision was closed with interrupted 4-0 Prolene sutures. There was good hemostasis. The mid occipital lesion was excised in identical fashion, was 5 mm in length. It was closed in identical fashion as well. Patient tolerated procedure well, was sent back to recovery room and discharged to home in good condition. CC: Ld Shahid
--- OUTSIDE RECORDS SUMMARY | 2024-11-11 09:39 | XMS_ITS | Encounter Summary ---
Author Organization [facility] Address [address] [place] [address] Care Team Providers Care Substitute School Nurse Name Role Phone Michael Guerra MD Primary Care Provider [phone] Encounter Details Date Type Department Care Team (Late Contact Info) Description 10/28/2023 Abstract [facility] [address] [place], [place] [address] [address] Sam Hooker, [address], [place] [address] Social History Tobacco Use Types Packs/Day Years [...] Department Care Team (Late Contact Info) Description 11/11/2024 3:20 PM EDT Office Visit [facility] [place] [address] Sam Hooker DO [address] [place] [address] 12/17/2024 2:30 PM EDT Procedure Visit [facility] [address] [place] [address] Ana Mukherjee MD [address] [place] [address] 09/23/2025 2:45 PM EDT Office Visit [facility] [address] [place] [address] Michael Guerra MD [address] [place] [address] documented as of this encounter Visit Diagnoses Not on filedocumented in this encounter Care Teams Substitute School Nurse Relationship Specialty Start Date End Date Michael Guerra MD [address] [place] [address] PCP - General Family Medicine 07/11/23 documented as of this encounter
--- OUTSIDE RECORDS SUMMARY | 2024-11-11 09:39 | XMS_ITS | Encounter Summary ---
Author Organization [facility] Address [address] [facility] [place] [address] Care Team Providers Care Debubblizer Name Role Phone Michael Guerra MD Primary Care Provider [phone] Encounter Details Date Type Department Care Team [...] EDT Office Visit [facility] [address] [place] [address] Celeste Hooker DO [address] [facility] [address] [place], [place] [address] 12/17/2024 2:30 PM EDT Procedure Visit [facility] [address] [place] [address] Ana Mukherjee MD [address] [place] [address] 09/23/2025 2:45 PM EDT Office Visit [facility] [address] [place] [address] Michael Guerra MD [address] [place] [address] documented as of this encounter Procedures Procedure Name Priority Date/Time Associated Diagnosis Comments US OB TRANSVAGINAL 10/25/2023 10 :29 AM EDT documented in this encounter Results * US OB TRANSVAGINAL (10/25/2023 10:29 AM EDT) Anatomical Region Laterality Modality Other 10/25/2023 10:2 9 AM EDT Narrative 10/25/2023 10:[place] [address] Ultrasound Report Signed Patient: BROOKLYNN GTZ MR#: [id number] : 1995 Acct:[id number] Age/Sex: 28 / F ADM Date: 10/25/23 Loc: [facility] Attending Dr: Celeste Hooker D.O. Ordering Physician: Celeste Hooker D.O. Date of Service: 10/25/23 Procedure(s): US OB transvaginal Accession Number(s): [id number] cc: Celeste Hooker D.O.; Michael Guerra M.D. The [address] [address] Patient Name: BROOKLYNN GTZ MRN: [id number] date: 1995 Sex: F Assigned Patient Location: [facility] Current Patient Location: [facility] Accession/Order Number: [id number] Exam Date: 10/25/2023 09:00 Report Date: 10/25/2023 10:29 At the request of: CELESTE HOOKER Procedure: US OB transvaginal EXAMINATION: US OB [...] Signed By: 10/25/23 1032 DD/ 1029 TD/TT: Cold Reduction Roller: Procedure Note Radiology, Radiologist, MD - 10/25/2023 [place] [address] Ultrasound Report Signed Patient: BROOKLYNN GTZ MMR#: [id number] : 1995Acct:[id number] Age/Sex: 28 / FADM Date: 10/25/23 Loc: [facility] Attending Dr: Celeste Hooker D.O. Ordering Physician: Celeste Hooker D.O. Date of Service: 10/25/23 Procedure(s): US OB transvaginal Accession Number(s): [id number] cc: Celeste Hooker D.O.; Michael Guerra M.D. The [place] [id number] Patient Name: BROOKLYNN GTZ MRN: [id number] date: 1995 Sex: F Assigned Patient [facility]: [facility] Current Patient Location: [facility] Accession/Order Number: [id number] Exam Date: 10/25/2023 09:00 Report Date: 10/25/2023 10:29 At the request of: CELESTE HOOKER Procedure: US OB transvaginal EXAMINATION: US OB [...] live intrauterine . Electronically authenticated by: GURMEET WINETRS Date: 10/25/2023 10:29 Dictated By: Gurmeet Winters M.D. Signed By:10/25/23 1032 DD/ 1029 TD/TT: Cold Reduction Roller: us Generic External Data Provider [facility] Final Result documented in this encounter Visit Diagnoses Not on filedocumented in this encounter Care Teams Debubblizer Relationship Specialty Start Date End Date Michael Guerra MD [address] [place] [address] PCP - General Family Medicine 07/11/23 documented as of this encounter
--- OUTSIDE RECORDS SUMMARY | 2024-11-11 09:39 | XMS_ITS | Encounter Summary ---
Author Organization [facility] Address [address] [place] [address] Care Team Providers Care Manager Of Compliance Name Role Phone Michael Guerra MD Primary Care Provider [phone] Encounter Details Date Type Department Care Team (Late Contact Info) Description 12/23/2023 Abstract [facility] [address] [place], [place] [address] [address] Sam Hooker, [address] [place], [place] [address] Social History Tobacco Use Types Packs/Day Years [...] 3:20 PM EDT Office Visit [facility] [place] [address] Sam Hooker DO [address] [place] [address] 12/17/2024 2:30 PM EDT Procedure Visit [facility] Eye [address] [place] [address] Ana Mukherjee MD [address] [place] [address] 09/23/2025 2:45 PM EDT Office Visit [facility] [address] [place] [address] Michael Guerra MD [address] [place] [address] documented as of this encounter Visit Diagnoses Not on filedocumented in this encounter Care Teams Manager Of Compliance Relationship Specialty Start Date End Date Michael Guerra MD [address] [place] [address] PCP - General Family Medicine 07/11/23 documented as of this encounter
--- OUTSIDE RECORDS SUMMARY | 2024-11-11 09:39 | XMS_ITS | Clinical Summary ---
Author Organization [facility] Address [address] [place] [address] Care Team Providers Care Senior Marketing Engineer Name Role Phone Michael Guerra MD Primary Care Provider [phone] Allergies Active Allergy Reactions Criticality Noted Date Comments Cefdinir Rash,Shortness of breath High 03/05/2023 Medications Vit-Fe Fumarate-FA ( 1 PLUS 1 PO) Take 1 each by mouth Daily Active magnesium oxide (Mag-Ox) 400 (240 Mg) MG tablet Take 400 mg by mouth Daily 09/02/2024 Active Active Problems Problem Noted Date Diagnosed Date [...] Date Resolved Date Encounter for follow-up ultr asound of anatomy ([facility]) 03/18/2024 09/22/2024 Pharyngitis 07/11/2023 09/22/2024 Assessment [...] Encounters Date Type Department Care Team Description 11/05/2024 Orders Only [facility] Eye [address] [place] [address] Ana Mukherjee MD Age-related nuclear cataract of both eyes; Benign neoplasm of left upper eyelid 11/04/2024 2:45 PM EDT Office Visit [facility] [address] [place] [address] Ana Mukherjee MD Benign neoplasm of left upper eyelid (Primary Dx) 11/04/2024 Bamboo flowsheet [facility] [address] [place] [address] Ana Mukherjee MD 11/04/2024 Travel 09/30/2024 Clinisync Result Encounter N[facility] External Department Unsolicited Sam Hooker DO 09/22/2024 2:45 PM EDT Office Visit [facility] [address] [place] [address] Michael Guerra MD Annual physical exam (Primary Dx); Dyslipidemia ; Scalp cyst; Class 2 severe obesity due to excess calories with serious comorbidity and body mass index (BMI) of 37.0 to 37.9 in adult ([facility]) 09/22/2024 Bamboo flowsheet [facility] [address] [place] [address] Michael Guerra MD 09/15/2024 Travel 08/19/2024 Telephone [facility] [place] [facility] [address] [place] [address] Clarissa Bruno MA from Last 3 Months Family History Medical [...] 3:20 PM EDT Office Visit [facility] [place] [facility] [address] [place] [address] Sam Hooker, DO [address] [facility] [address] [place], [place] [address] 12/17/2024 2:30 PM EDT Procedure Visit [facility] Eye [address] [place] [address] Ana Mukherjee MD [address] [place] [address] 09/23/2025 2:45 PM EDT Office Visit [facility] [address] [place] [address] Michael Guerra MD [address] [place] [address] Health Maintenance Due Date Last Done Comments Influenza Vaccine (#1) 2024 02/07/2020 Goals Goal Patient Goal Type Associated Problems Recent Progress Patient-Stated? Author Reminders Care Plan OB Reminders No Open Scheduling, Background Procedures Procedure Name Priority Date/Time Associated Diagnosis Comments ALL THYROID STIM HORMONE Routine 09/30/2024 10:12 AM EDT from Last 3 Months Results * ALL THYROID STIM HORMONE (09/30/2024 10:12 AM EDT) THYROID STIMULATING HORMONE 2.563 0.358 - 3.740 uIU/mL [facility] 09/30/2024 10:1 2 AM EDT 09/30/2024 10:13 AM EDT Narrative [facility] - 09/30/2024 11:12 AM EDT us Generic External Data Provider [facility] F inal Result [facility] TB from Last 3 Months Additional Health Concerns Active Problems Noted Date Diagnosed Date OB Reminders 02/16/2024 Insurance [facility] [place] [address] Care Teams Senior Marketing Engineer Relationship Specialty Start Date End Date Michael Guerra MD [address] [place] [address] PCP - General Family Medicine 07/11/23
--- OUTSIDE RECORDS SUMMARY | 2024-11-11 09:39 | XMS_ITS | Encounter Summary ---
Author Organization [facility] Address [address] [place] [address] Care Team Providers Care Supervisor Cook House Name Role Phone Michael Guerra MD Primary Care Provider [phone] Encounter Details Date Type Department Care Team (Late Contact Info) Description 12/12/2023 Abstract [facility] [address] [place], [place] [address] [address] Sam Hooker, [address] [place], [place] [address] Social History Tobacco Use Types Packs/Day Years [...] 3:20 PM EDT Office Visit [facility]O L[facility] [place] [address] Sam Hooker DO [address] [place] [address] 12/17/2024 2:30 PM EDT Procedure Visit [facility] [address] [place] [address] Ana Mukherjee MD [address] [place] [address] 09/23/2025 2:45 PM EDT Office Visit [facility] [address] [place] [address] Michael Guerra MD [address] [place] [address] documented as of this encounter Visit Diagnoses Not on filedocumented in this encounter Care Teams Supervisor Cook House Relationship Specialty Start Date End Date Michael Guerra MD [address] [place] [address] PCP - General Family Medicine 07/11/23 documented as of this encounter
--- OUTSIDE RECORDS SUMMARY | 2024-11-11 09:39 | XMS_ITS | Encounter Summary ---
Author Organization [facility] Address [address] [place] [address] Care Team Providers Care Evaluation Assistant Name Role Phone Michael Guerra MD Primary Care Provider [phone] Encounter Details Date Type Department Care Team (Late Contact Info) Description 10/28/2023 Abstract [facility] [address] [place], [place] [address] [address] Sam Hooker, [address] [place], [place] [address] Social History Tobacco Use Types Packs/Day Years [...] 3:20 PM EDT Office Visit ARNALDO LÓPEZ [facility] [place] [address] Sam Hooker DO [address] [place] [address] 12/17/2024 2:30 PM EDT Procedure Visit [facility] Eye [address] [place] [address] Ana Mukherjee MD [address] [place] [address] 09/23/2025 2:45 PM EDT Office Visit [facility] [address] [place] [address] Michael Guerra MD [address] [place] [address] documented as of this encounter Visit Diagnoses Not on filedocumented in this encounter Care Teams Evaluation Assistant Relationship Specialty Start Date End Date Michael Guerra MD [address] [place] [address] PCP - General Family Medicine 07/11/23 documented as of this encounter
--- OUTSIDE RECORDS SUMMARY | 2024-11-11 09:39 | XMS_ITS | Encounter Summary ---
Author Organization [facility] Address [address] [place] [address] Care Team Providers Care Cane Cutter Name Role Phone Michael Guerra MD Primary Care Provider [phone] Encounter Details Date Type Department Care Team (Late Contact Info) Description 11/01/2023 Abstract [facility] [place] [address] Priya Lucero LPN [address] [employer] [place] [phone] Social History Tobacco Use Types Packs/Day Years [...] Description 11/11/2024 3:20 PM EDT Office Visit [facility] [address] [facility] [place] [address] Sam Hooker DO [address] [place] [place], [place] [address] 12/17/2024 2:30 PM EDT Procedure Visit [facility] [address] [place] [address] Ana Mukherjee MD [address] [place] [address] 09/23/2025 2:45 PM EDT [facility] [address] [place] [address] Michael Guerra MD [address] [place] [address] documented as of this encounter Visit Diagnoses Not on filedocumented in this encounter Care Teams Cane Cutter Relationship Specialty Start Date End Date Michael Guerra MD [address] [place] [address] PCP - General Family Medicine 07/11/23 documented as of this encounter
--- OUTSIDE RECORDS SUMMARY | 2024-11-11 09:39 | XMS_ITS | Encounter Summary ---
Author Organization [facility] Address [address] [place] [address] Care Team Providers Care Ice Carver Name Role Phone Michael Guerra MD Primary Care Provider [phone] Encounter Details Date Type Department Care Team (Late Contact Info) Description 10/30/2023 Abstract [facility] [address] [place], [place] [address] [address] Sam Hooker, [address] [place], [place] [address] Social History Tobacco Use Types Packs/Day Years [...] 3:20 PM EDT Office Visit ARNALDO LÓPEZ [facility] [place] [address] Sam Hooker DO [address] [place] [address] 12/17/2024 2:30 PM EDT Procedure Visit [facility] Eye [address] [place] [address] Ana Mukherjee MD [address] [place] [address] 09/23/2025 2:45 PM EDT Office Visit [facility] [address] [place] [address] Michael Guerra MD [address] [place] [address] documented as of this encounter Visit Diagnoses Not on filedocumented in this encounter Care Teams Ice Carver Relationship Specialty Start Date End Date Michael Guerra MD [address] [place] [address] PCP - General Family Medicine 07/11/23 documented as of this encounter
--- OUTSIDE RECORDS SUMMARY | 2024-11-11 09:39 | XMS_ITS | Encounter Summary ---
Author Organization [facility] Address [address] [place] [address] Care Team Providers Care Custom Tailor Name Role Phone Michael Guerra MD Primary Care Provider [phone] Encounter Details Date Type Department Care Team (Late Contact Info) Description 10/28/2023 Abstract [facility] [address] [place], [place] [address] [address] Sam Hooker, [address] [place], [place] [address] Social History Tobacco Use Types Packs/Day Years [...] 3:20 PM EDT Office Visit ARNALDO LÓPEZ [facility] [place] [address] Sam Hooker DO [address] [place] [address] 12/17/2024 2:30 PM EDT Procedure Visit [facility] Eye [address] [place] [address] Ana Mukherjee MD [address] [place] [address] 09/23/2025 2:45 PM EDT Office Visit [facility] [address] [place] [address] Michael Guerra MD [address] [place] [address] documented as of this encounter Visit Diagnoses Not on filedocumented in this encounter Care Teams Custom Tailor Relationship Specialty Start Date End Date Michael Guerra MD [address] [place] [address] PCP - General Family Medicine 07/11/23 documented as of this encounter
--- OUTSIDE RECORDS SUMMARY | 2024-11-11 09:39 | XMS_ITS | Encounter Summary ---
Author Organization [facility] Address [address] [place] [address] Care Team Providers Care Residential Lawn Specialist Name Role Phone Michael Guerra MD Primary Care Provider [phone] Encounter Details Date Type Department Care Team (Late Contact Info) Description 10/30/2023 Abstract [facility] [address] [place], [place] [address] [address] Sam Hooker, [address] [place], [place] [address] Social History Tobacco Use Types Packs/Day Years [...] 3:20 PM EDT Office Visit ARNALDO LÓPEZ [facility] [place] [address] Sam Hooker DO [address] [place] [address] 12/17/2024 2:30 PM EDT Procedure Visit [facility] [address] [place] [address] Ana Mukherjee MD [address] [place] [address] 09/23/2025 2:45 PM EDT Office Visit [facility] [address] [place] [address] Michael Guerra MD [address] [place] [address] documented as of this encounter Visit Diagnoses Not on filedocumented in this encounter Care Teams Residential Lawn Specialist Relationship Specialty Start Date End Date Michael Guerra MD [address] [place] [address] PCP - General Family Medicine 07/11/23 documented as of this encounter
--- OUTSIDE RECORDS SUMMARY | 2024-11-11 09:39 | XMS_ITS | Encounter Summary ---
Author Organization [facility] Address [address] [place] [address] Care Team Providers Care Skilled Labor Name Role Phone Michael Guerra MD Primary Care Provider [phone] Encounter Details Date Type Department Care Team (Late Contact Info) Description 06/19/2024 Abstract A[facility]O [facility] [address] [place], [place] [address] [address] Sam Hooker DO [address] [place], [place] [address] Social History Tobacco Use Types Packs/Day Years [...] [facility] [place] [address] Sam Hooker DO [address], [facility] 12/17/2024 2:30 PM EDT Procedure Visit [facility] [address] [place] [address] Ana Mukherjee MD [address] [place] [address] 09/23/2025 2:45 PM EDT Office Visit [facility] [address] [place] [address] Michael Guerra MD [address] [place] [address] documented as of this encounter Goals Goal Patient Goal Type Associated Problems Recent Progress Patient-Stated? Author Reminders Care Plan OB Reminders No Open Scheduling, Background documented as of this encounter Visit Diagnoses Not on filedocumented in this encounter Additional Health Concerns Active Problems Noted Date Diagnosed Date OB Reminders 02/16/2024 documented as of this encounter Care Teams Skilled Labor Relationship Specialty Start Date End Date Michael Guerra MD [address] [place] [address] PCP - General Family Medicine 07/11/23 documented as of this encounter
--- OUTSIDE RECORDS SUMMARY | 2024-11-11 09:39 | XMS_ITS | Encounter Summary ---
Author Organization [facility] Address [address] [place] [address] Care Team Providers Care Site Safety Representative Name Role Phone Michael Guerra MD Primary Care Provider [phone] Encounter Details Date Type Department Care Team (Late Contact Info) Description 11/27/2023 Abstract [facility] [address] [place], [place] [address] [address] Sam Hooker, [address], [place] [address] Social History Tobacco Use Types Packs/Day Years [...] 3:20 PM EDT Office Visit ARNALDO LÓPEZ [facility] [place] [address] Sam Hooker DO [address] [place] [address] 12/17/2024 2:30 PM EDT Procedure Visit [facility] [address] [place] [address] Ana Mukherjee MD [address] [place] [address] 09/23/2025 2:45 PM EDT Office Visit [facility] [address] [place] [address] Michael Guerra MD [address] [place] [address] documented as of this encounter Visit Diagnoses Not on filedocumented in this encounter Care Teams Site Safety Representative Relationship Specialty Start Date End Date Michael Guerra MD [address] [place] [address] PCP - General Family Medicine 07/11/23 documented as of this encounter
--- OUTSIDE RECORDS SUMMARY | 2024-11-11 09:39 | XMS_ITS | Encounter Summary ---
Author Organization [facility] Address [address] [place] [address] Care Team Providers Care Geoscience Technician Name Role Phone Michael Guerra MD Primary Care Provider [phone] Encounter Details Date Type Department Care Team (Late Contact Info) Description 10/28/2023 Abstract [facility] [address] [place], [place] [address] [address] Sam Hooker, [address] [place], [place] [address] Social History Tobacco Use Types Packs/Day Years [...] 3:20 PM EDT Office Visit ARNALDO LÓPEZ [facility] [place] [address] Sam Hooker DO [address] [place] [address] 12/17/2024 2:30 PM EDT Procedure Visit [facility] [address] [place] [address] Ana Mukherjee MD [address] [place] [address] 09/23/2025 2:45 PM EDT Office Visit [facility] [address] [place] [address] Michael Guerra MD [address] [place] [address] documented as of this encounter Visit Diagnoses Not on filedocumented in this encounter Care Teams Geoscience Technician Relationship Specialty Start Date End Date Michael Guerra MD [address] [place] [address] PCP - General Family Medicine 07/11/23 documented as of this encounter
--- OUTSIDE RECORDS SUMMARY | 2024-11-11 09:39 | XMS_ITS | Encounter Summary ---
Author Organization [facility] Address [address] [place] [address] Care Team Providers Care Police Commanding Officer Name Role Phone Michael Guerra MD Primary Care Provider [phone] Encounter Details Date Type Department Care Team (Late Contact Info) Description 10/30/2023 Abstract [facility] L[facility] [employer] [address] Priya Lucero LPN [address] [employer] [place] [address] Social History Tobacco Use Types Packs/Day Years [...] PM EDT Office Visit [facility] [address] [facility] [place] [address] Sam Hooker DO [address] [place] [place], [place] [address] 12/17/2024 2:30 PM EDT Procedure Visit [facility] [address] [place] [address] Ana Mukherjee MD [address] [place] [address] 09/23/2025 2:45 PM EDT [facility] [address] [place] [address] Michael Guerra MD [address] [place] [address] documented as of this encounter Visit Diagnoses Not on filedocumented in this encounter Care Teams Police Commanding Officer Relationship Specialty Start Date End Date Michael Guerra MD [address] [place] [address] PCP - General Family Medicine 07/11/23 documented as of this encounter
--- OUTSIDE RECORDS SUMMARY | 2024-11-11 09:40 | XMS_ITS | Encounter Summary ---
Author Organization [facility] Address [address] [place] [address] Care Team Providers Care Gang Leader Name Role Phone Michael Guerra MD Primary Care Provider [phone] Encounter Details Date Type Department Care Team (Late Contact Info) Description 05/21/2024 Abstract ARNALDO LÓPEZ [address] [place], [place] [address] [address] Sam Hooker DO [address], [place] [address] Social History Tobacco Use Types Packs/Day Years [...] 3:20 PM EDT Office Visit ARNALDO LÓPEZ [facility] [place] [address] Sam Hooker DO [address], [facility] 12/17/2024 2:30 PM EDT Procedure Visit [facility] [address] [place] [address] Ana Mukherjee MD [address] [place] [address] 09/23/2025 2:45 PM EDT Office Visit [facility] [address] [place] [address] Michael Guerra MD [address] [place] [address] documented as of this encounter Goals Goal Patient Goal Type Associated Problems Recent Progress Patient-Stated? Author Reminders Care Plan OB Reminders No Open Scheduling, Background documented as of this encounter Visit Diagnoses Not on filedocumented in this encounter Additional Health Concerns Active Problems Noted Date Diagnosed Date OB Reminders 02/16/2024 documented as of this encounter Care Teams Gang Leader Relationship Specialty Start Date End Date Michael Guerra MD [address] [place] [address] PCP - General Family Medicine 07/11/23 documented as of this encounter
--- OUTSIDE RECORDS SUMMARY | 2024-11-11 09:40 | XMS_ITS | Encounter Summary ---
Author Organization [facility] Address [address] [place] [address] Care Team Providers Care Licensed Land Surveyor Name Role Phone Michael Guerra MD Primary Care Provider [phone] Encounter Details Date Type Department Care Team (Latest Contact Info) Description 11/04/2024 Travel Social History Tobacco Use Types Packs/Day Years [...] 3:20 PM EDT Office Visit [facility] [address] [facility] [place] [address] Sam Hooker DO [address] [facility] [place] [address] 12/17/2024 2:30 PM EDT Procedure Visit [facility] [address] [place] [address] Ana Mukherjee MD [address] [place] [address] 09/23/2025 2:45 PM EDT Office Visit [facility] [address] [place] [address] Michael Guerra MD [address] [place] [address] documented as of this encounter Goals Goal Patient Goal Type Associated Problems Recent Progress Patient-Stated? Author Reminders Care Plan OB Reminders No Open Scheduling, Background documented as of this encounter Visit Diagnoses Not on filedocumented in this encounter Additional Health Concerns Active Problems Noted Date Diagnosed Date OB Reminders 02/16/2024 documented as of this encounter Care Teams Licensed Land Surveyor Relationship Specialty Start Date End Date Michael Guerra MD [address] [place] [address] PCP - General Family Medicine 07/11/23 documented as of this encounter
--- OUTSIDE RECORDS SUMMARY | 2024-11-11 09:40 | XMS_ITS | Encounter Summary ---
Author Organization [facility] Address [address] [facility] [place] [address] Care Team Providers Care Legal Billing Specialist Name Role Phone Michael Guerra MD Primary Care Provider [phone] Encounter Details Date Type Department Care Team [...] 3:20 PM EDT Office Visit [facility] [address] [place] [address] Celeste Hooker DO [address] [facility] [address] [place], [place] [address] 12/17/2024 2:30 PM EDT Procedure Visit [facility] Eye [address] [place] [address] Ana Mukherjee MD [address] [place] [address] 09/23/2025 2:45 PM EDT Office Visit [facility] [address] [place] [address] Michael Guerra MD [address] [place] [address] documented as of this encounter Procedures Procedure Name Priority Date/Time Associated Diagnosis Comments US OB CERVICAL LENGTH 01/29/2024 4:13 PM EDT documented in this encounter Results * US OB CERVICAL LENGTH (01/29/2024 4:13 PM EDT) Anatomical Region Laterality Modality Other 01/29/2024 4:13 PM EDT Narrative 01/29/2024 4:[place] [address] Ultrasound Report Signed Patient: BROOKLYNN GTZ MR#: [id number] : 1995 Acct:[id number] Age/Sex: 28 / F ADM Date: 01/29/24 Loc: [facility] Attending Dr: Celeste Hooker D.O. Ordering Physician: Celeste Hooker D.O. Date of Service: 01/29/24 Procedure(s): US OB cervical length Accession Number(s): [id number] cc: Celeste Hooker D.O.; Michael Guerra M.D. The [address] [address] Patient Name: BROOKLYNN GTZ MRN: [id number] date: 1995 Sex: F Assigned Patient Location: [facility] Current Patient Location: [facility] Accession/Order Number: [id number] Exam Date: 01/29/2024 14:30 Report Date: 01/29/2024 16:13 At the request of: CELESTE HOOKER Procedure: US OB cervical length EXAMINATION: US [...] Signed By: 01/29/24 1616 DD/ 12 TD/TT: Instrumentation Engineering Technician: Procedure Note Radiology, Radiologist, - 01/29/2024 [place] [address] Ultrasound Report Signed Patient: BROOKLYNN GTZ MMR#: [id number] : 1995Acct:[id number] Age/Sex: 28 / FADM Date: 01/29/24 Loc: [facility] Attending Dr: Celeste Hooker D.O. Ordering Physician: Celeste Hooker D.O. Date of Service: 01/29/24 Procedure(s): US OB cervical length Accession Number(s): [id number] cc: Celeste Hooker D.O.; Michael Guerra M.D. The [place] [id number] Patient Name: BROOKLYNN GTZ MRN: [id number] date: 1995 Sex: F Assigned Patient Location: [facility] Current Patient Location: [facility] Accession/Order Number: [id number] Exam Date: 01/29/2024 14:30 Report Date: 01/29/2024 16:13 At the request of: CELESTE HOOKER Procedure: US OB cervical length EXAMINATION: US [...] Winters M.D. Signed By:01/29/241615 DD/ 12 TD/TT: Instrumentation Engineering Technician: us Generic External Data Provider [facility] Final Result documented in this encounter Visit Diagnoses Not on filedocumented in this encounter Care Teams Legal Billing Specialist Relationship Specialty Start Date End Date Michael Guerra MD [address] [place] [address] PCP - General Family Medicine 07/11/23 documented as of this encounter
--- OUTSIDE RECORDS SUMMARY | 2024-11-11 09:40 | XMS_ITS | Encounter Summary ---
Author Organization [facility] Address [address] [facility] [place] [address] Care Team Providers Care Household Cook Name Role Phone Michael Guerra MD Primary Care Provider [phone] Encounter Details Date Type Department Care Team [...] EDT Office Visit [facility] [address] [place] [address] Celeste Hooker DO [address] [facility] [address] [place], [place] [address] 12/17/2024 2:30 PM EDT Procedure Visit [facility] Eye [address] [place] [address] Ana Mukherjee MD [address] [place] [address] 09/23/2025 2:45 PM EDT Office Visit [facility] [address] [place] [address] Michael Guerra MD [address] [place] [address] documented as of this encounter Goals Goal [...] EST Narrative 04/06/2024 3:47 PM EST The [address] [address] Ultrasound Report Signed Patient: BROOKLYNN GTZ MR#: [id number] : 1995 Acct:[id number] Age/Sex: 29 / F ADM Date: 04/06/24 Loc: US Attending Dr: Celeste Hooker D.O. Ordering Physician: Celeste Hooker D.O. Date of Service: 04/06/24 Procedure(s): US OB incomplete anatomy Accession Number(s): [id number] cc: Celeste Hooker D.O.; Michael Guerra M.D. The [address] [address] Patient Name: BROOKLYNN GTZ MRN: [id number] date: 1995 Sex: F Assigned Patient Location: US Current Patient Location: US Accession/Order Number: [id number] Exam Date: 04/06/2024 14:40 Report Date: 04/06/2024 15:45 At the request of: CELESTE HOOKER Procedure: US OB incomplete anatomy EXAM: US [...] Signed By: 04/06/24 1547 DD/ 1545 TD/TT: Studio Potter: Procedure Note Radiology, Radiologist, MD - 04/06/2024 [place] [address] Ultrasound Report Signed Patient: BROOKLYNN GTZ MMR#: [id number] : 1995Acct:[id number] Age/Sex: Date: 04/06/24 Loc: US Attending Dr: Celeste Hooker D.O. Ordering Physician: Cleeste Hooker D.O. Date of Service: 04/06/24 Procedure(s): US OB incomplete anatomy Accession Number(s): [id number] cc: Celeste Hooker D.O.; Michael Guerra M.D. The [address] [address] Patient Name: BROOKLYNN GTZ MRN: [id number] date: 1995 Sex: F Assigned Patient Location: US Current Patient Location: US Accession/Order Number: [id number] Exam Date: 04/06/2024 14:40 Report Date: 04/06/2024 15:45 At the request of: CELESTE HOOKER Procedure: US OB incomplete anatomy EXAM: US [...] M.D. Signed By:04/06/24 1547 DD/ 1545 TD/TT: Studio Potter: us Generic External Data Provider [facility] Final Result documented in this encounter Visit Diagnoses Not on filedocumented in this encounter Additional Health Concerns Active Problems Noted Date Diagnosed Date OB Reminders 02/16/2024 documented as of this encounter Care Teams Household Cook Relationship Specialty Start Date End Date Michael Guerra MD [address] [place] [address] PCP - General Family Medicine 07/11/23 documented as of this encounter
--- OUTSIDE RECORDS SUMMARY | 2024-11-11 09:40 | XMS_ITS | Encounter Summary ---
Author Organization [facility] Address [address] [place] [address] Care Team Providers Care Land Law Examiner Name Role Phone Michael Guerra MD Primary Care Provider [phone] Reason for Referral * Outpatient Surgery (Routine) - Authorized Specialty Diagnoses / Procedures Referred By Contac t Referred To Contact Ophthalmology Diagnoses Benign neoplasm of left upper eyelid Procedures [place] OFFICE/OUTPATIENT [facility] HIGH MDM 60 MINUTES Ana Mukherjee MD [address] [place] [address] Phone: tel: fax: Ana Mukherjee MD [address] [place] [address] Phone: tel: fax: Referral ID Status Reason Start Date Expiration Date Visits Requested Visits Authorized [id number] Authorized Perform Procedure 11/05/2024 05/04/2025 1 1 Encounter Details Date Type Department Care Team (Late st Contact Info) Description 11/05/2024 Orders Only [facility] [address] [place] [address] Ana Mukherjee MD [address] [place] [address] Age-related nuclear cataract of both eyes; Benign neoplasm of left upper eyelid Social History Tobacco Use Types Packs/Day Years [...] EDT Office Visit [facility] [address] [facility] [place] [address] Sam Hooker DO [address] [facility] [place] [address] 12/17/2024 2:30 PM EDT Procedure Visit [facility] [address] [place] [address] Ana Mukherjee MD [address] [place] [address] 09/23/2025 2:45 PM EDT [facility] [address] [place] [address] Michael Guerra MD [address] [place] [address] Scheduled Referrals Name Type Priority Associated Diagnoses Order Schedule Ambulatory referral to Ophthalmology Outpatient Referral Routine Benign neoplasm of left upper eyelid Expected: 11/05/2024 (Approximate), Expires: 05/08/2025 documented as of this encounter Goals Goal Patient Goal Type Associated Problems Recent Progress Patient-Stated? Author Reminders Care Plan OB Reminders No Open Scheduling, Background documented as of this encounter Visit Diagnoses Diagnosis Age-related nuclear cataract of both eyes Benign neoplasm of left upper eyelid documented in this encounter Additional Health Concerns Active Problems Noted Date Diagnosed Date OB Reminders 02/16/2024 documented as of this encounter Care Teams Land Law Examiner Relationship Specialty Start Date End Date Michael Guerra MD [address] [place] [address] PCP - General Family Medicine 07/11/23 documented as of this encounter
--- OUTSIDE RECORDS SUMMARY | 2024-11-11 09:40 | XMS_ITS | Encounter Summary ---
Author Organization [facility] Address [address] [facility] [place] [address] Care Team Providers Care Merchandise Coordinator Name Role Phone Michael Guerra MD Primary Care Provider [phone] Encounter Details Date Type Department Care Team [...] EDT Office Visit [facility] [address] [facility] [place] [address] Celeste Hooker DO [address] [facility] [address] [place], [place] [address] 12/17/2024 2:30 PM EDT Procedure Visit [facility] Eye [address] [place] [address] Ana Mukherjee MD [address] [place] [address] 09/23/2025 2:45 PM EDT Office Visit [facility] [address] [place] [address] Michael Guerra MD [address] [facility] [place] [address] documented as of this encounter Procedures Procedure Name Priority Date/Time Associated Diagnosis Comments US OB ANATOMY 01/29/2024 4:13 PM EDT documented in this encounter Results * US OB ANATOMY (01/29/2024 4:13 PM EDT) Anatomical Region Laterality Modality Other 01/29/2024 4:13 PM EDT Narrative 01/29/2024 4:16 [place] [address] Ultrasound Report Signed Patient: BROOKLYNN GTZ MR#: [id number] : 1995 Acct:[id number] Age/Sex: 28 / F ADM Date: 01/29/24 Loc: NOMS Attending Dr: Celeste Hooker D.O. Ordering Physician: Celeste Hooker D.O. Date of Service: 01/29/24 Procedure(s): US OB anatomy Accession Number(s): [id number] cc: Celeste Hooker D.O.; Michael Guerra M.D. The [address] [address] Patient Name: BROOKLYNN GTZ MRN: [id number] date: 1995 Sex: F Assigned Patient Location: [facility] Current Patient Location: [facility] Accession/Order Number: [id number] Exam Date: 01/29/2024 14:30 Report Date: 01/29/2024 16:13 At the request of: CELESTE HOOKER Procedure: US OB anatomy EXAMINATION: US OB [...] M.D. Signed By: 01/29/241615 DD/ 12 TD/TT: Learning And Development Officer: Procedure Note Radiology, Radiologist, - 01/29/[address] [address] Ultrasound Report Signed Patient: BROOKLYNN GTZ MMR#: [id number] : 1995Acct:[id number] Age/Sex: 28 / FADM Date: 01/29/24 Loc: [facility] Attending Dr: Celeste Hooker D.O. Ordering Physician: Celeste Hooker D.O. Date of Service: 01/29/24 Procedure(s): US OB anatomy Accession Number(s): [id number] cc: Celeste Hooker D.O.; Michael Guerra M.D. The [address] [address] Patient Name: BROOKLYNN GTZ MRN: [id number] date: 1995 Sex: F Assigned Patient Location: [facility] Current Patient Location: [facility] Accession/Order Number: [id number] Exam Date: 01/29/2024 14:30 Report Date: 01/29/2024 16:13 At the request of: CELESTE HOOKER Procedure: US OB anatomy EXAMINATION: US OB [...] greater than 97th percentile. Electronically authenticated by: UGRMEET WINTERS Date: 01/29/2024 16:13 Dictated By: Gurmeet Winters M.D. Signed By:01/29/241615 DD/ 12 TD/TT: Learning And Development Officer: us Generic External Data Provider [facility] Final Result documented in this encounter Visit Diagnoses Not on filedocumented in this encounter Care Teams Merchandise Coordinator Relationship Specialty Start Date End Date Michael Guerra MD [address] [place] [address] PCP - General Family Medicine 07/11/23 documented as of this encounter
--- OUTSIDE RECORDS SUMMARY | 2024-11-11 09:40 | XMS_ITS | Encounter Summary ---
Author Organization [facility] Address [address] [place] [address] Care Team Providers Care Machine Taper Name Role Phone Michael Guerra MD Primary Care Provider [phone] Encounter Details Date Type Department Care Team (Late Contact Info) Description 11/04/2024 Bamboo flowsheet [facility] [address] [place] [address] Ana Mukherjee MD [address] [place] [address] Social History Tobacco Use Types Packs/Day Years [...] EDT Office Visit [facility] [address] [facility] [address] Sam Hooker DO [address], [place] [address] 12/17/2024 2:30 PM EDT Procedure Visit [facility] [address] [place] [address] Ana Mukherjee MD [address] [place] [address] 09/23/2025 2:45 PM EDT Office Visit [facility] [address] [place] [address] Michael Guerra MD [address] [place] [address] documented as of this encounter Goals Goal Patient Goal Type Associated Problems Recent Progress Patient-Stated? Author Reminders Care Plan OB Reminders No Open Scheduling, Background documented as of this encounter Visit Diagnoses Not on filedocumented in this encounter Additional Health Concerns Active Problems Noted Date Diagnosed Date OB Reminders 02/16/2024 documented as of this encounter Care Teams Machine Taper Relationship Specialty Start Date End Date Michael Guerra MD [address] [place] [address] PCP - General Family Medicine 07/11/23 documented as of this encounter
[2024-11-11 09:48] VITALS: BP 140/96; PULSE 81; TEMP 36.2; O2SAT 98; BMI 41.6
[2024-11-11 10:53] VITALS: BP 128/79; PULSE 77; O2SAT 98
[2024-11-11] MEDS: BUPIVACAINE HCL 0.5% PF 50 MG/10 ML VIAL 3 ML INJ (11:00)
[2024-11-11 11:17] VITALS: BP 135/88; PULSE 72; O2SAT 97
== END 2024-11-11 11:25 | disposition home or self-care (01) ==
LOC: SURGOUT 09:37
PROVIDERS: PCP Family Medicine; Visit Provider Surgery
PROC: (CPT 11420; principal; 2024-11-11 09:55)
DX: L72.11 Pilar cyst (principal); Z01.419 Encounter for gynecological examination (general) (routine) without abnormal findings; R52 Pain, unspecified
CPT/HCPCS: 11420; 11421; 88175; 88304; J0665

== ENCOUNTER 2024-11-11 19:54 | Outpatient (REF) | payer OTHER, SELFPAY | END 2024-11-11 19:55 | disposition home or self-care (01) | LOC: LAB 19:54 | PROVIDERS: PCP Family Medicine; Visit Provider Obstetrics & Gynecology | DX: Z01.419 Encounter for gynecological examination (general) (routine) without abnormal findings (principal) | CPT/HCPCS: 88175 ==

== ENCOUNTER 2025-03-06 13:06 | Outpatient (OUT) | payer OTHER, SELFPAY ==
--- NOTE | 2025-03-06 13:09 | US_ITS ---
The [address] [address] Patient Name: BROOKLYNN ALVARES MRN: [id number] date: 1995 Sex: F Assigned Patient Location: Current Patient Location: US Accession/Order Number: [id number] Exam Date: 03/06/2025 13:10 Report Date: 03/06/2025 13:36 At the request of: CRISTIANE HELMS MD Procedure: US renal BI US renal BI 03/06/2025 1:31 PM SIGNS AND SYMPTOMS: ^Calculus of kidney COMPARISON: None. FINDINGS: Right kidney measures 11.4 x 6.3 x 5.4 cm . The right renal cortex measures 1 cm in thickness. There is no hydronephrosis or mass. Left kidney measures 11.9 x 5.9 x 5.4 cm . The left renal cortex measures 1.3 cm in thickness. No hydronephrosis or mass. The urinary bladder is morphologically normal. No free fluid is seen in the pelvis. Before voiding, the bladder has an estimated volume of 37 mL . US/US renal BI IMPRESSION: No hydronephrosis or mass. Impression dictated by: Davonte Erazo M.D. 03/06/2025 1:36 PM Dictation Location: [place] [address] Electronically authenticated by: [id number] Y Date: 03/06/2025 13:36
--- NOTE | 2025-03-06 13:09 | XR_ITS ---
The [place] [id number] Patient Name: BROOKLYNN ALVARES MRN: [id number] date: 1995 Sex: F Assigned Patient Location: US Current Patient Location: US Accession/Order Number: [id number] Exam Date: 03/06/2025 13:22 Report Date: 03/06/2025 13:37 At the request of: CRISTIANE HELMS MD Procedure: XR abdomen 1V XR abdomen 1V 03/06/2025 1:27 PM SIGNS AND SYMPTOMS: ^Calculus of kidney PROTOCOL: Frontal radiographs of the abdomen and pelvis COMPARISON: None FINDINGS: No definite radiodense renal, ureteral, or bladder stones. Degenerative changes are noted in the right sacroiliac joint. Vascular calcifications are present in the pelvis. There is a nonobstructive bowel gas pattern. XR/XR abdomen 1V IMPRESSION: No definite radiodense renal, ureteral, or bladder stones. Impression dictated by: Davonte Erazo M.D. 03/06/2025 1:37 PM Dictation Location: [place] [address] Electronically authenticated by: [id number] Y Date: 03/06/2025 13:37
--- OUTSIDE RECORDS SUMMARY | 2025-03-06 13:10 | XMS_ITS | Clinical Summary ---
Author Organization [facility] Healthcare Address [address] [place] [address] Care Team Providers Care Cover Maker Name Role Phone Michael Guerra MD Primary Care Provider [phone] Allergies Active AllergyReactionsCriticalityNoted DateCommentsCefdinirRash,Shortness of wftifnWlqp10/28/2023 Medications MedicationSigDispense QuantityRefillsLast FilledStart DateEnd DateStatus Vit-Fe Fumarate-FA ( 1 PLUS 1 PO) Take 1 each by mouth DailyActive magnesium oxide (Mag-Ox) 400 (240 Mg) MG tablet Take 400 mg by mouth Daily5Active fluconazole (Diflucan) 150 MG tablet Indications:Yeast infectionTake 1 tablet (150 mg) by mouth 1 (one) time for 1 dose This is a 1 time dose, take single tablet by mouth. 1 tablet Expired ciprofloxacin (Cipro) 500 MG tablet Indications:Urinary Tract InfectionTake 1 tablet (500 mg) by mouth in the morning and 1 tablet (500 mg) before bedtime. Do all this for 7 days. 14 tablet 5105/04/2024Expired Active Problems ProblemNoted DateDiagnosed DateAnnual physical exam09/22/2024 Assessment & Plan (09/22/2024 3:25 PM EDT): Reviewed labs. Discussed proper diet and regular aerobic exercise. Need aerobic exercise 5-6 days aweek for 30 minutes at a time. Smaller portions and limit total calories. Colonoscopy after age 45.Tetanus every 10 years. Advised not to smoke. Scalp cyst09/22/2024 Assessment & Plan (09/22/2024 3:26 PM EDT): Bumps appear to be benign cysts but tender. Refer to surgeon for excision. Generalized anxiety wmxbxiga96/04/3616Jqvijhtktkpd07/04/2024Metabolic syndrome 07/11/2023COS (polycystic ovarian syndrome)07/11/2023Vitamin D deficiency 07/11/2023lass 2 severe obesity due to excess calories with serious comorbidity and body mass index (BMI) of37.0 to 37.9 in adult07/11/2023 Assessment & Plan (09/22/2024 3:25 PM EDT): Weight loss indicated. Herpes ottjztjw07/08/2024 Resolved Problems ProblemNoted DateDiagnosed DateResolved DateEncounter for follow-up ultrasound of anatomy ([facility])Pharyngitis Assessment & Plan (07/11/2023 12:14 PM EDT): Rapid strep in office negative, symptoms likely due to virus. Send for throat culture. Use prednisone for inflammation. Increase fluid intake. Use chloraseptic spray, cepacol lozenges and gargle withwarm salt water. Use motrin or tylenol as needed for discomfort. Symptoms should improve in 3-5 days and if not call office for reevaluation. Encounters DateTypeDepartmentCare DxzrYaxtcehjekx42/20/2025Telephone [facility] [address] [place] [address] Day Turner MA 01/28/2025Telephone [facility] [address] [place] [address] Clarissa Bruno MA 01/19/2025bstract [facility] LÓPEZ [address] [place] [address] Sam Hooker DO 01/14/2025 2:30 PM EDTProcedure Visit [facility] [address] [place] [address] Ana Mukherjee MD Benign neoplasm of left upper ybgnby1801/14/20250993Zdtlyu55/06/2025Orders Only [facility] [address] [place] [address] Ana Mukherjee MD Age-related nuclear cataract of both eyes; Benign neoplasm of left upper qccxgh1301/11/2025Telephone [facility] [address] [place] [address] Day Turner, JUAREZ 12/31/2024bstract [facility] [address] [place] [address] Sam Hooker DO 12/31/2024Telephone [facility] [address] [place] [address] Sam Hooker DO Referral to Neurologyfrom Last 3 Months Family History Medical HistoryRelationNameCommentsHypertensionFatherMental illnessFatherCancer Maternal GrandfatherHypertensionMaternal GrandfatherHypertensionMotherRelation NameStatusCommentsFatherAliveMaternal GrandfatherMotherAlive Social History Tobacco UseTypesPacks/DayYears UsedDateSmoking Tobacco: NeverSmokeless Tobacco: Never Tobacco Cessation:Counseling Given: Not Answered Alcohol UseStandard Drinks/WeekCommentsNot Currently0 (1 standard drink = 0.6 oz pure alcohol)1-2 a month sociallyCommentsUnknownSex and Gender InformationValueDate RecordedSex Assigned at DioblQfsqii55/04/2024 11:22 AM EDT Legal SxmXezdty22/15/2023 7:47 PM EDTGender TmflxgkaRknhkq89/04/2024 11:22 AM EDTSexual OrientationNot on file Last Filed Vital Signs Vital SignReadingTime TakenCommentsBlood Nfbdeeuh924/8408 3:53 PM EDT Mtyye198909/22/2024 2:53 PM LGQMedwxiebbbp15.6 ??C (97.8 ??F)09/22/2024 2:53 PM EDTRespiratory Rxhl869709/22/2024 2:53 PM EDTOxygen Ozuccfivhf18%09/22/2024 2:53 PM EDTInhaled Oxygen Concentration--Mhtkwg889 kg (266 lb 12.8 oz)11/11/2024 3:53 PM VBMRgizuj077.2 cm (5' 7 )09/22/2024 2:53 PM EDTBody Mass Index41.7909/22/2024 2:53 PM EDT Plan of Treatment DateTypeDepartmentCare Team (Latest Contact Info)Vkaybrzpwua05/12/2026 4:00 PM EDTProcedure Visit [facility] [address] [address] Sam Hooker DO [address] [place], [place] [id number] Health MaintenanceDue DateLast DoneCommentsCOVID-19 Vaccine ( season) Influenza Vaccine (#1)Pneumococcal Vaccine: Pediatrics (0 to 5 Years) and At-Risk Patients (6 to 64 Years)Aged Out No longer eligible based on patient's age to complete this topic Goals GoalPatient Goal TypeAssociated ProblemsRecent ProgressPatient-Stated?Author Reminders Care PlanOB RemindersNoOpen Scheduling, Background Additional Health Concerns Active ProblemsNoted DateDiagnosed DateOB Vqigtwwmq56/10/2024 Insurance Care Teams Team MemberRelationshipSpecialtyStart DateEnd Date Michael Guerra MD [address] [place] [address] PCP - GeneralFamily Medicine07/11/23
--- OUTSIDE RECORDS SUMMARY | 2025-03-06 13:10 | XMS_ITS | Clinical Summary ---
Author Organization [facility] [employer] [facility] Address [id number] [place] [address] Care Team Providers Care Engineer Fishing Vessel Name Role Phone Unavailable Primary Care Provider Unavailabl e Encounters DateTypeDepartmentCare DsipBcungutaonb74/14/2025Telephone [facility] Neurology, A Department of [facility] [address] [place] [address] Elsie Fowler A NEURO REFERRALfrom Last 3 Months Social History Tobacco UseTypesPacks/DayYears UsedDateSmoking Tobacco: Never Assessed CommentsUnknownSex and Gender InformationValueDate RecordedSex Assigned at Not on fileLegal HaqGyqfgo10/14/2025 9:57 AM EDTGender IdentityNot on fileSexual OrientationNot on file Plan of Treatment Not on file Medical Devices Not on file
--- OUTSIDE RECORDS SUMMARY | 2025-03-06 13:10 | XMS_ITS | Encounter Summary ---
Author Organization [facility] Address [address] [place] [address] Care Team Providers Care Digital Computer Operator Name Role Phone Michael Guerra MD Primary Care Provider Encounter Details DateTypeDepartmentCare Team (Latest Contact Info)Uamqdqnsipu69/20/2025Telephone [facility] [address] [place] [phone] Day Turner MA [address] [place] [address] Social History Tobacco UseTypesPacks/DayYears UsedDateSmoking Tobacco: NeverSmokeless Tobacco: NeverAlcohol UseStandard Drinks/WeekCommentsNot Currently0 (1 standard drink = 0.6 oz pure alcohol)1-2 a month sociallyCommentsUnknownSex and Gender InformationValueDate RecordedSex Assigned at XxboyYryuls18/04/2024 11:22 AM EDT Legal ZmfClueqm89/15/2023 7:47 PM EDTGender GtilrifaRotsmt73/04/2024 11:22 AM EDTSexual OrientationNot on filedocumented as of this encounter Miscellaneous Notes * Telephone Encounter - Day Turner MA - 02/25/2025 8:01 AM EST Pt in need of medication for yeast infection and a UTI. Rx was sent. documented in this encounter Plan of Treatment DateTypeDepartmentCare Team (Latest Contact Info)Gsajdenzgpz88/12/2026 4:00 PM EDTProcedure Visit [facility] [address] [place] [address] Sam Hooker DO [address] [place] [address] documented as of this encounter Goals GoalPatient Goal TypeAssociated ProblemsRecent ProgressPatient-Stated?Author Reminders Care PlanOB RemindersNoOpen Scheduling, Backgrounddocumented as of this encounter Visit Diagnoses Diagnosis Yeast infection Urinary tract infection without hematuria, site unspecified documented in this encounter Additional Health Concerns Active ProblemsNoted DateDiagnosed DateOB Bhacxlame31/10/2024 documented as of this encounter Care Teams Team MemberRelationshipSpecialtyStart DateEnd Date Michael Guerra MD [address] [place] [address] PCP - GeneralFamily Medicine07/11/23documented as of this encounter
== END 2025-03-06 13:07 | disposition home or self-care (01) ==
LOC: US 13:06
PROVIDERS: PCP Family Medicine; Visit Provider Family Medicine
DX: N20.0 Calculus of kidney (principal)
CPT/HCPCS: 74018; 76775